=== PATIENT | female | born 1990 | race Caucasian/White ===

== ENCOUNTER 2016-04-17 12:31 | Inpatient (IN) | payer BC, MEDICARE ==
[~2016-04-17] VITALS: Ht 157.5 cm; Wt 43.1 kg
[~2016-04-17 12:31] MED LIST: ALPR0.25 PO; AMLO10TA2 PO; AMOX1TAB58 PO; CINA60TA PO; DOCU-27 PO; HYDR-2869 PO; LEVO500T38 PO; LISI2.5T PO; LOSA50TA6 PO; METO200T3 PO; ONDA4TAB10 SL; ONDA4TAB12 PO; OXYC-244 PO; OXYC-323 PO; OXYC5CAP3 PO; POLY17PO5 PO
[2016-04-17] MEDS ORDERED: FENTANYL PF 100 MCG/2 ML VIAL. IV ONE ×3 (13:00→20:45)
--- NOTE | 2016-04-17 13:01 | PHYS DOC ---
Past Medical History Past Medical History: Hypertension, Renal Failure, Seizure Additional Past Medical Histor: HEMODIAYLSIS,elevated phosporous Past Surgical History: , Other Additional Past Surgical Histo: AV shunt in left arm, dialysis cath placement and removal, L. WRIST Alcohol Use: None Drug Use: Marijuana Adult General Chief Complaint Chief Complaint: ABDOMINAL PAIN HPI HPI This is a 26-year-old female who's renal failure dependent on hemodialysis 3 times a week he was 45 minutes into her dialysis treatment today and developed exquisite epigastric and left upper quadrant pain with some nausea. Patient additionally states she's had some diarrhea earlier today. Currently she rates her pain an 8 out of 10 on the pain scale. Patient does have history of pancreatitis that she had 3 weeks ago. She states she's had only one episode of this. She states that this feels somewhat similar to that episode. She additionally rates her blood pressure is been very elevated today. At the hemodialysis center her blood pressure was 230/130 she was given a dose of clonidine but this did not affect the blood pressure to any significant degree and so she was sent here for further evaluation for these issues. Currently she denies any chest pain or shortness of breath. Patient states she was compliant with her blood pressure medication earlier today and takes amlodipine and hydralazine. Patient is history of renal failure secondary to us complication from a strep infection she had as a child. Also of recent note the patient had a right-sided hip fracture that subsequently became septic and required hardware removal and she has a PICC line in place now and is receiving vancomycin therapy for this. They removed all the hardware and placed cement in the joint in the last several weeks. She denies any new pain today in this area and has been receiving pain control adequately. She currently is fully alert and oriented and able to answer all my questions and follow my commands and does not appear to be in any acute distress. Review of Systems Review of Systems Constitutional: Denies fever or chills [] Eyes: Denies change in visual acuity, redness, or eye pain [] HENT: Denies nasal congestion or sore throat [] Respiratory: Denies cough or shortness of breath [] Cardiovascular: No additional information not addressed in HPI [] GI: Denies abdominal pain, nausea, vomiting, bloody stools or diarrhea [] : Denies dysuria or hematuria [] Musculoskeletal: Denies back pain or joint pain [] Integument: Denies rash or skin lesions [] Neurologic: Denies headache, focal weakness or sensory changes [] Endocrine: Denies polyuria or polydipsia [] Current Medications Current Medications Current Medications Medications (Trade) Dose Ordered Sig/Rolly Start Time Stop Time Status Last Admin Dose Admin Fentanyl Citrate (Fentanyl 2ml Vial) 50 mcg 1X ONCE 04/17/16 13:00 04/17/16 13:01 DC 04/17/16 13:36 50 MCG Hydralazine HCl (Apresoline) 10 mg 1X ONCE 04/17/16 13:15 04/17/16 13:16 DC 04/17/16 13:33 10 MG Lorazepam (Ativan) 0.5 mg 1X STAT 04/17/16 14:08 04/17/16 14:09 DC 04/17/16 14:12 0.5 MG Ondansetron HCl (Zofran) 4 mg 1X ONCE 04/17/16 13:15 04/17/16 13:16 DC 04/17/16 13:35 4 MG Allergies Allergies Allergies Coded Allergies Type Severity Reaction Last Updated Verified Sulfa (Sulfonamide Antibiotics) Allergy Intermediate 07/07/14 Yes haloperidol Allergy Intermediate Anxiety 10/01/14 No Physical Exam Physical Exam Constitutional: Well developed, well nourished, no acute distress, non-toxic appearance. [] HENT: Normocephalic, atraumatic, bilateral external ears normal, oropharynx moist, no oral exudates, nose normal. [] Eyes: PERRLA, EOMI, conjunctiva normal, no discharge. [] Neck: Normal range of motion, no tenderness, supple, no stridor. [] Cardiovascular:Heart rate regular rhythm, no murmur [] Lungs & Thorax: Bilateral breath sounds clear to auscultation [] Abdomen: Bowel sounds normal, soft, moderate epigastric and LUQ tenderness, no masses, no pulsatile masses. [] Skin: Warm, dry, no erythema, no rash. [] Back: No tenderness, no CVA tenderness. [] Extremities: No tenderness, no cyanosis, no clubbing, ROM intact, no edema. [] Neurologic: Alert and oriented X 3, normal motor function, normal sensory function, no focal deficits noted. [] Psychologic: Affect normal, judgement normal, mood normal. [] Current Patient Data Vital Signs Vital Signs Date Time Temp Pulse Resp B/P Pulse Ox O2 Delivery O2 Flow Rate FiO2 04/17/16 14:06 104 20 180/113 97 04/17/16 13:46 Room Air 04/17/16 12:40 98.5 98.5 Lab Values Laboratory Tests Test 04/17/16 13:20 White Blood Count 6.5x10^3/uL (4.0-11.0) Red Blood Count 2.74x10^6/uL (3.50-5.40) L Hemoglobin 8.5g/dL (12.0-15.5) L Hematocrit 26.6% (36.0-47.0) L Mean Corpuscular Volume 97fL (79-100) Mean Corpuscular Hemoglobin 31pg (25-35) Mean Corpuscular Hemoglobin Concent 32g/dL (31-37) Red Cell Distribution Width 20.5% (11.5-14.5) H Platelet Count 182x10^3/uL (140-400) Neutrophils (%) (Auto) 82% (31-73) H Lymphocytes (%) (Auto) 10% (24-48) L Monocytes (%) (Auto) 4% (0-9) Eosinophils (%) (Auto) 3% (0-3) Basophils (%) (Auto) 1% (0-3) Neutrophils # (Auto) 5.3x10^3uL (1.8-7.7) Lymphocytes # (Auto) 0.6x10^3/uL (1.0-4.8) L Monocytes # (Auto) 0.3x10^3/uL (0.0-1.1) Eosinophils # (Auto) 0.2x10^3/uL (0.0-0.7) Basophils # (Auto) 0.1x10^3/uL (0.0-0.2) Platelet Estimate Adequate (ADEQUATE) Polychromasia Slight Poikilocytosis Mod Anisocytosis Mod Spherocytes Occ Ovalocytes Few [place] Cells Occ Acanthocytes (Spur Cells) Few Schistocytes Few Sodium Level 142mmol/L (136-145) Potassium Level 4.8mmol/L (3.5-5.1) Chloride Level 102mmol/L (98-107) Carbon Dioxide Level 23mmol/L (21-32) Anion Gap 17 (6-14) H Blood Urea Nitrogen 56mg/dL (7-20) H Creatinine 5.6mg/dL (0.6-1.0) H Estimated GFR (Cockcroft-Gault) 9.2 BUN/Creatinine Ratio 10 (6-20) Glucose Level 82mg/dL (70-99) Calcium Level 9.2mg/dL (8.5-10.1) Total Bilirubin 0.6mg/dL (0.2-1.0) Aspartate Amino Transferase (AST) 14U/L (15-37) L Alanine Aminotransferase (ALT) 13U/L (14-59) L Alkaline Phosphatase 765U/L (46-116) H Total Protein 6.6g/dL (6.4-8.2) Albumin 3.3g/dL (3.4-5.0) L Albumin/Globulin Ratio 1.0 (1.0-1.7) Lipase 141U/L (73-393) Laboratory Tests 04/17/16 13:20 Laboratory Tests 04/17/16 13:20 EKG EKG EKG as interpreted by me shows a sinus rhythm with rate of 91 bpm. There are no acute ST findings on this EKG. Radiology/Procedures Radiology/Procedures CT of the abdomen and pelvis without IV contrast: 1. Small amount of abdominal ascites with extensive mesenteric stranding and body wall edema, new compared to the prior study. 2. Stable hepatosplenomegaly. 3. Small right pleural effusion, new compared to the prior study. 4. Bilateral renal atrophy. 5. Large amount of colonic stool. Correlate for constipation. 6. Fracture dislocation of the right hip and deformity of the right femoral head, new compared to the prior study. There is no associated moderate right hip hemarthrosis. 7. Mild L2 compression fracture, new compared to the prior study. This may be subacute. 8. Chronic appearing sacral insufficiency fractures and pubic rami fractures superimposed on osseous changes due to renal osteodystrophy, similar compared to the prior study. 9. Grade 1 anterolisthesis of L5 on S1 with pars defects. Portable AP view of the pelvis and the right hip demonstrates cement artifact in the right hip. There is some absent bone in the femoral neck which is likely secondary to her previous surgery. There does not appear to be an acute dislocation but more likely related to her previous surgery. Course & Med Decision Making Course & Med Decision Making Pertinent Labs and Imaging studies reviewed. (See chart for details) This 26 her old female with ongoing epigastric and left upper quadrant pain receive a dose of IV pain control and IV hydralazine for her blood pressure issues. Also obtain laboratory workup and a noncontrasted CT to rule out any other acute cause of her symptoms. Ultimately if her laboratory workup and imaging is negative and her pain is controlled she will be safe to be discharged home to obtain dialysis as scheduled. If her laboratory workup reveals any acute abnormalities I will be admitting her to the hospital. Patient does not appear to be in any acute distress at this time. It certainly is possible her symptoms are related to her known history of pancreatitis although with the acute onset of the pain, it is possible there are other acute causes that need to be ruled out. I discussed the hip findings with the orthopedic surgeon, Dr. Castro, who agreed to order AP view of the hip and pelvis as well. I believe her findings are more consistent with her previous surgery and no acute findings today however orthopedic surgery will follow her closely for this. I will be admitting her for her ongoing abdominal pain and inability to complete her dialysis in addition to her musculoskeletal injuries. Laboratory workup is significant for renal failure but this is a known issue. There were no other acute findings on laboratory workup. Her CT of her abdomen/pelvis did note a L1 compression fracture as well as some mild ascites. For additional findings, please see the CT report. Dragon Disclaimer Dragon Disclaimer This electronic medical record was generated, in whole or in part, using a voice recognition dictation system. Departure Departure Impression: Primary Impression: Abdominal pain Additional Impressions: Hip fracture, right Lumbar compression fracture Disposition: ADMITTED INPATIENT Admitting Physician: Rodger Apple Condition: STABLE Referrals: NO PCP (PCP) Problem Qualifiers RYAN VELASQUEZ DO Apr 17, 2016 13:01
[2016-04-17] MEDS ORDERED: hydrALAZINE 20 MG/ML VIAL. IVP ONE (13:15)
[2016-04-17] MEDS ORDERED: ONDANSETRON PF 4 MG/2 ML VIAL. IV ONE (13:15)
--- NOTE | 2016-04-17 13:49 | EKG ---
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
[2016-04-17 13:54] LABS: BASO # 0.1 x10^3/uL (0.0-0.2); BASO % 1 % (0-3); EOS % 3 % (0-3); HEMATOCRIT 26.6 % (36.0-47.0); HEMOGLOBIN 8.5 g/dL (12.0-15.5); LYMPH # 0.6 x10^3/uL (1.0-4.8); LYMPH % 10 % (24-48); MEAN CORPUSCULAR HEMOGLOBIN 31 pg (25-35); MEAN CORPUSCULAR HGB CONC 32 g/dL (31-37); MEAN CORPUSCULAR VOLUME 97 fL (79-100); MONO % 4 % (0-9); NEUT % 82 % (31-73); PLATELET COUNT 182 x10^3/uL (140-400); RED BLOOD COUNT 2.74 x10^6/uL (3.50-5.40); RED CELL DISTRIBUTION WIDTH 20.5 % (11.5-14.5); WHITE BLOOD COUNT 6.5 x10^3/uL (4.0-11.0)
[2016-04-17] MEDS ORDERED: LORAZEPAM 2 MG/ML VIAL IV STA (14:08)
--- NOTE | 2016-04-17 14:21 | RAD ---
EXAM: Abdomen and pelvis CT without intravenous contrast. HISTORY: Pain. TECHNIQUE: Computed tomographic images of the abdomen and pelvis were obtained without contrast. Multiplanar reformatting was performed. COMPARISON: 10/28/2015. FINDINGS: Evaluation of the lower thorax demonstrates scattered groundglass and linear opacity likely due to atelectasis. There is 5 mm pleural-based nodular opacity within the right lower lobe likely due to atelectasis. There is a small right pleural effusion. There is cardiomegaly. There is a small pericardial effusion. There is hepatomegaly. No focal hepatic lesion is seen. The gallbladder is surgically absent. The pancreas is unremarkable. The spleen is mildly enlarged. There is adrenal gland thickening without a discrete nodule. There are atrophic kidneys with parenchymal and vascular calcification. There is no evidence of appendicitis. There is a large amount of colonic stool. There is a small amount of abdominal ascites and diffuse mesenteric stranding. There are uterine calcifications. The adnexal regions are unremarkable. There is a bladder mucosal thickening likely due to underdistention. There is a central venous catheter within the right inferior vena cava at the confluence of the hepatic veins. There is diffuse body wall edema. There is a comminuted proximal right femoral fracture with associated hip dislocation. There are bilateral pubic rami fractures. There are sacral insufficiency fractures. There chronic deformity and postoperative changes involving the right femoral head. There is a mild wedge compression fracture of L2. There is lumbar hyperlordosis and grade 1 anterolisthesis with pars defects at L5-S1. There is sclerosis within the vertebral bodies and bony pelvis consistent with renal osteodystrophy. There are several endplate Schmorl's nodes. IMPRESSION: 1. Small amount of abdominal ascites with extensive mesenteric stranding and body wall edema, new compared to the prior study. 2. Stable hepatosplenomegaly. 3. Small right pleural effusion, new compared to the prior study. 4. Bilateral renal atrophy. 5. Large amount of colonic stool. Correlate for constipation. 6. Fracture dislocation of the right hip and deformity of the right femoral head, new compared to the prior study. There is no associated moderate right hip hemarthrosis. 7. Mild L2 compression fracture, new compared to the prior study. This may be subacute. 8. Chronic appearing sacral insufficiency fractures and pubic rami fractures superimposed on osseous changes due to renal osteodystrophy, similar compared to the prior study. 9. Grade 1 anterolisthesis of L5 on S1 with pars defects. PQRS Compliance Statement: One or more of the following individualized dose reduction techniques were utilized for this examination: 1. Automated exposure control 2. Adjustment of the mA and/or kV according to patient size 3. Use of iterative reconstruction technique
[2016-04-17 14:39] LABS: CALCIUM 9.2 mg/dL (8.5-10.1); CREATININE 5.6 mg/dL (0.6-1.0); GFR 9.2; POTASSIUM 4.8 mmol/L (3.5-5.1)
[2016-04-17] MEDS ORDERED: ACETAMINOPHEN 325 MG TABLET. PO PRN ×2 (14:45→19:00)
[2016-04-17 14:53] LABS: ALBUMIN 3.3 g/dL (3.4-5.0); TOTAL BILIRUBIN 0.6 mg/dL (0.2-1.0); TOTAL PROTEIN 6.6 g/dL (6.4-8.2)
[2016-04-17] MEDS: IV NORMAL SALINE 1000ML BAG 1,000 ML IV SCH ×2 (15:12→23:00)
[2016-04-17] MEDS: ONDANSETRON PF 4 MG/2 ML VIAL. IV PRN ×2 (15:14→23:11)
[2016-04-17] MEDS ORDERED: DIPHENHYDRAMINE 50 MG/ML VIAL IVP ONE (15:15)
[2016-04-17] MEDS: FENTANYL PF 100 MCG/2 ML VIAL. IV PRN ×4 (15:16→23:12)
[2016-04-17 15:24] LABS: PLT ESTIMATE ADEQUATE (ADEQUATE)
[2016-04-17 15:25] LABS: ANISOCYTOSIS MOD; OVALOCYTES FEW; POIKILOCYTOSIS MOD; POLYCHROMASIA SLIGHT; SPHEROCYTES OCC
[2016-04-17 15:26] LABS: ACANTHOCYTES FEW; BURR CELLS OCC; SCHISTOCYTES FEW
[2016-04-17 15:30] VITALS: BP 183/118
[2016-04-17 16:30] VITALS: BP 183/118
[2016-04-17] MEDS ORDERED: hydrALAZINE 20 MG/ML VIAL. IVP PRN ×2 (18:15→19:00)
--- NOTE | 2016-04-17 18:45 | PDOC1 ---
History and Physical Past Medical History Cardiovascular: HTN Heme/Onc: Anemia NOS Psych: Anxiety Renal/: Chronic renal failure, UTI, Other Endocrine: Hyperparathyroidism Family History Family History: Hypertension Social History ALCOHOL: none Drugs: None Current Problem List Problem List Problems Medical Problems: (1) Abdominal pain Status: Acute (2) Hip fracture, right Status: Acute (3) Lumbar compression fracture Status: Acute Current Medications Current Medications Current Medications Medications (Trade) Dose Ordered Sig/Rolly Start Time Stop Time Status Last Admin Dose Admin Acetaminophen (Tylenol) 650 mg PRN Q4HRS PRN 04/17/16 14:45 04/18/16 14:44 Diphenhydramine HCl (Benadryl) 25 mg 1X ONCE 04/17/16 15:15 04/17/16 15:16 DC 04/17/16 15:15 25 MG Fentanyl Citrate (Fentanyl 2ml Vial) 50 mcg 1X ONCE 04/17/16 14:45 04/17/16 14:46 DC 04/17/16 14:32 50 MCG Fentanyl Citrate 50 mcg 50 mcg PRN Q2HR PRN 04/17/16 14:45 04/18/16 14:44 04/17/16 17:34 50 MCG Hydralazine HCl (Apresoline) 10 mg PRN Q4HRS PRN 04/17/16 18:15 04/17/16 18:19 10 MG Lorazepam (Ativan) 0.5 mg 1X STAT 04/17/16 14:08 04/17/16 14:09 DC 04/17/16 14:12 0.5 MG Ondansetron HCl (Zofran) 4 mg PRN Q8HRS PRN 04/17/16 14:45 04/18/16 14:44 04/17/16 15:14 4 MG Sodium Chloride (Iv Sodium Chloride 0.9% 1000ml Bag) 1,000 ml @ 125 mls/hr Q8H 04/17/16 15:00 04/18/16 14:59 04/17/16 15:12 125 MLS/HR Allergies Allergies Allergies Coded Allergies Type Severity Reaction Last Updated Verified Sulfa (Sulfonamide Antibiotics) Allergy Intermediate 07/07/14 Yes haloperidol Allergy Intermediate Anxiety 10/01/14 No ROS Review of System CONSTITUTIONAL: No fever or chills EYES: No recent changes SKIN: No rash or itching CARDIOVASCULAR: No chest pain, syncope, palpitations, or edema RESPIRATORY: No SOB or cough GASTROINTESTINAL: abdominal pain NEUROLOGICAL: No headaches or weakness ENDOCRINE: No cold or heat intolerance GENITOURINARY: No urgency or frequency of urination MUSCULOSKELETAL: hip pain right LYMPHATICS: No enlarged lymph nodes PSYCHIATRIC: No anxiety or depression Physical Exam Physical Exam GEN.: apparent distress pain. Alert and oriented. HEENT: Head is normocephalic, atraumatic NECK: Supple. no jvd LUNGS: Clear to auscultation. normal airflow HEART: RRR, S1, S2 present. Peripheral pulses intact ABDOMEN: Soft, nontender. Positive bowel sounds. EXTREMITIES: Without any cyanosis. NEUROLOGIC: Normal speech, normal tone PSYCHIATRIC: Normal affect, normal mood. SKIN: No ulcerations Vitals Vitals Vital Signs Date Time Temp Pulse Resp B/P Pulse Ox O2 Delivery O2 Flow Rate FiO2 04/17/16 18:19 90 183/118 04/17/16 18:13 18 96 Room Air 04/17/16 15:30 97.9 97.9 Labs Labs Laboratory Tests Test 04/17/16 13:20 White Blood Count 6.5x10^3/uL (4.0-11.0) Red Blood Count 2.74x10^6/uL (3.50-5.40) Hemoglobin 8.5g/dL (12.0-15.5) Hematocrit 26.6% (36.0-47.0) Mean Corpuscular Volume 97fL (79-100) Mean Corpuscular Hemoglobin 31pg (25-35) Mean Corpuscular Hemoglobin Concent 32g/dL (31-37) Red Cell Distribution Width 20.5% (11.5-14.5) Platelet Count 182x10^3/uL (140-400) Neutrophils (%) (Auto) 82% (31-73) Lymphocytes (%) (Auto) 10% (24-48) Monocytes (%) (Auto) 4% (0-9) Eosinophils (%) (Auto) 3% (0-3) Basophils (%) (Auto) 1% (0-3) Neutrophils # (Auto) 5.3x10^3uL (1.8-7.7) Lymphocytes # (Auto) 0.6x10^3/uL (1.0-4.8) Monocytes # (Auto) 0.3x10^3/uL (0.0-1.1) Eosinophils # (Auto) 0.2x10^3/uL (0.0-0.7) Basophils # (Auto) 0.1x10^3/uL (0.0-0.2) Platelet Estimate Adequate (ADEQUATE) Polychromasia Slight Poikilocytosis Mod Anisocytosis Mod Spherocytes Occ Ovalocytes Few [place] Cells Occ Acanthocytes Few Schistocytes Few Sodium Level 142mmol/L (136-145) Potassium Level 4.8mmol/L (3.5-5.1) Chloride Level 102mmol/L (98-107) Carbon Dioxide Level 23mmol/L (21-32) Anion Gap 17 (6-14) Blood Urea Nitrogen 56mg/dL (7-20) Creatinine 5.6mg/dL (0.6-1.0) Estimated GFR (Cockcroft-Gault) 9.2 BUN/Creatinine Ratio 10 (6-20) Glucose Level 82mg/dL (70-99) Calcium Level 9.2mg/dL (8.5-10.1) Total Bilirubin 0.6mg/dL (0.2-1.0) Aspartate Amino Transf (AST/SGOT) 14U/L (15-37) Alanine Aminotransferase (ALT/SGPT) 13U/L (14-59) Alkaline Phosphatase 765U/L (46-116) Total Protein 6.6g/dL (6.4-8.2) Albumin 3.3g/dL (3.4-5.0) Albumin/Globulin Ratio 1.0 (1.0-1.7) Lipase 141U/L (73-393) Laboratory Tests Test 04/17/16 13:20 White Blood Count 6.5x10^3/uL (4.0-11.0) Red Blood Count 2.74x10^6/uL (3.50-5.40) Hemoglobin 8.5g/dL (12.0-15.5) Hematocrit 26.6% (36.0-47.0) Mean Corpuscular Volume 97fL (79-100) Mean Corpuscular Hemoglobin 31pg (25-35) Mean Corpuscular Hemoglobin Concent 32g/dL (31-37) Red Cell Distribution Width 20.5% (11.5-14.5) Platelet Count 182x10^3/uL (140-400) Neutrophils (%) (Auto) 82% (31-73) Lymphocytes (%) (Auto) 10% (24-48) Monocytes (%) (Auto) 4% (0-9) Eosinophils (%) (Auto) 3% (0-3) Basophils (%) (Auto) 1% (0-3) Neutrophils # (Auto) 5.3x10^3uL (1.8-7.7) Lymphocytes # (Auto) 0.6x10^3/uL (1.0-4.8) Monocytes # (Auto) 0.3x10^3/uL (0.0-1.1) Eosinophils # (Auto) 0.2x10^3/uL (0.0-0.7) Basophils # (Auto) 0.1x10^3/uL (0.0-0.2) Platelet Estimate Adequate (ADEQUATE) Polychromasia Slight Poikilocytosis Mod Anisocytosis Mod Spherocytes Occ Ovalocytes Few [place] Cells Occ Acanthocytes Few Schistocytes Few Sodium Level 142mmol/L (136-145) Potassium Level 4.8mmol/L (3.5-5.1) Chloride Level 102mmol/L (98-107) Carbon Dioxide Level 23mmol/L (21-32) Anion Gap 17 (6-14) Blood Urea Nitrogen 56mg/dL (7-20) Creatinine 5.6mg/dL (0.6-1.0) Estimated GFR (Cockcroft-Gault) 9.2 BUN/Creatinine Ratio 10 (6-20) Glucose Level 82mg/dL (70-99) Calcium Level 9.2mg/dL (8.5-10.1) Total Bilirubin 0.6mg/dL (0.2-1.0) Aspartate Amino Transf (AST/SGOT) 14U/L (15-37) Alanine Aminotransferase (ALT/SGPT) 13U/L (14-59) Alkaline Phosphatase 765U/L (46-116) Total Protein 6.6g/dL (6.4-8.2) Albumin 3.3g/dL (3.4-5.0) Albumin/Globulin Ratio 1.0 (1.0-1.7) Lipase 141U/L (73-393) VTE Prophylaxis Ordered VTE Prophylaxis Devices: Yes VTE Pharmacological Prophylaxi: Yes VASIREDDI,GAYATRI R MD Apr 17, 2016 18:45
[2016-04-17] MEDS ORDERED: VANCOMYCIN 1.25 GM in IV NORMAL SALINE 250ML 250 ML IV ONE (19:00)
[2016-04-17] MEDS ORDERED: HYDROCODONE/APAP 5/325MG TABLET. PO PRN (19:00)
[2016-04-17] MEDS ORDERED: ONDANSETRON PF 4 MG/2 ML VIAL. IV PRN (19:00)
[2016-04-17] MEDS ORDERED: ALBUTEROL SULFATE 2.5 MG/3 ML NEBU. NEB PRN (19:00)
[2016-04-17 19:10] VITALS: BP 176/114
[2016-04-17] MEDS ORDERED: OXYCODONE/APAP 7.5/325 TABLET. PO PRN (19:15)
[2016-04-17] MEDS ORDERED: VANCOMYCIN RANDOM LEVEL. MC ONE (19:30)
[2016-04-17] MEDS: VANCOMYCIN PER PHARMACY MC PRN ×2 (19:30→20:49)
[2016-04-17] MEDS: AMLODIPINE BESYLATE 10 MG TABLET PO SCH (19:49)
[2016-04-17] MEDS: ALPRAZOLAM 1 MG TABLET PO PRN (19:50)
[2016-04-17] MEDS: METOPROLOL SUCC 24HR ER 100 MG TAB.ER.24H. PO SCH (19:50)
[2016-04-17] MEDS: VANCOMYCIN 750 MG in IV NORMAL SALINE 250ML 250 ML IV ONE ×2 (20:57→21:30)
[2016-04-17] MEDS: HYDRALAZINE 50 MG TABLET PO SCH (21:10)
[2016-04-17 23:10] VITALS: BP 171/126
[2016-04-18] MEDS: FENTANYL PF 100 MCG/2 ML VIAL. IV PRN ×8 (02:33→21:51)
[2016-04-18 02:40] VITALS: BP 145/116
--- NOTE | 2016-04-18 03:36 | HP ---
ADMIT DATE: 04/17/2016 CHIEF COMPLAINT: Abdominal pain. HISTORY OF PRESENT ILLNESS: A 26-year-old female patient with prior history of several comorbid conditions such as end-stage renal disease, on hemodialysis, who developed sudden onset of left upper quadrant mid epigastric abdominal pain after 45 minutes into her hemodialysis today. The patient states abdominal pain is intractable in nature, denies any fever, chills. At the time of my examination, she is complaining of pain 10/10. As per ER report, she was diagnosed with pancreatitis in the past. Also, she was admitted to [facility] and her right hip has been repaired and currently she is on IV vancomycin with dialysis; however, she could not able to provide me full details. She recently has right hip fracture and subsequently got septic and currently she is on vancomycin therapy. Also, her mobility of the right hip has been restricted. PAST MEDICAL HISTORY: Hypertension, end-stage renal disease, hemodialysis. CHIEF PAST SURGICAL HISTORY: , AV shunt left arm, dialysis catheter placement. SOCIAL HISTORY: No smoking, no alcohol, no drug abuse. FAMILY HISTORY: No hypertension. REVIEW OF SYSTEMS AND PHYSICAL EXAMINATION: Please see my electronic H and P. LABORATORY FINDINGS: 1. Hemoglobin is 8.5, hematocrit is 26.6, MCV is 97, platelets 182. 2. Chemistry: Sodium is 142, potassium is 4.8, chloride is 102, carbon dioxide 23, anion gap is 17, BUN is 56, creatinine 5.6, AST is 14, ALT is 13, alkaline phosphatase 765. 3. Toxicology: Vancomycin level 7. IMAGING STUDY: Abdomen and pelvis CT showed; 1. Small amount of abdominal ascites with extensive mesenteric stranding and body wall edema, new compared to the prior study, stable hepatosplenomegaly, small right pleural effusion, bilateral renal atrophy, large amount of colonic stool. 2. Fracture, dislocation of right hip and deformity of right femoral head, new compared to prior study. 3. Mild L2 compression fracture. 4. Chronic appearing sacral insufficiency fracture and pubic rami fracture. ASSESSMENT AND PLAN: 1. Intractable abdominal pain, unclear but multiple possible differentials, ascites and L2 compression fracture and possible peritonitis. 2. Gastritis. 4. Uncontrolled hypertension. 5. End-stage renal disease, on hemodialysis. PLAN: 1. Pain control with IV fentanyl 25 mcg every 2 hours. 2. General surgery and GI has been consulted. 3. Orthopedics has been consulted. 4. Blood pressure control with home medications, metoprolol 200 mg daily with p.r.n. hydralazine. 5. Nephrology consultation for dialysis. 6. Monitor electrolytes. 7. IV vancomycin has been resumed. Did discuss with RN to obtain records from [facility]. 8. Pharmacy to dose vancomycin. 9. The patient's mother is not available immediately at the time of my examination. 10. Monitor CBC and BMP. Telemetry. 11. Overall prognosis is guarded. GAYATRI DOLAN MD DR: TONO/phuc JOB#: [id number] / [id number]
[2016-04-18 06:31] LABS: BASO # 0.1 x10^3/uL (0.0-0.2); BASO % 1 % (0-3); EOS % 3 % (0-3); HEMATOCRIT 29.9 % (36.0-47.0); HEMOGLOBIN 9.6 g/dL (12.0-15.5); LYMPH # 0.8 x10^3/uL (1.0-4.8); LYMPH % 7 % (24-48); MEAN CORPUSCULAR HEMOGLOBIN 31 pg (25-35); MEAN CORPUSCULAR HGB CONC 32 g/dL (31-37); MEAN CORPUSCULAR VOLUME 96 fL (79-100); MONO % 5 % (0-9); NEUT % 84 % (31-73); PLATELET COUNT 268 x10^3/uL (140-400); RED CELL DISTRIBUTION WIDTH 20.9 % (11.5-14.5); WHITE BLOOD COUNT 11.1 x10^3/uL (4.0-11.0)
[2016-04-18 06:36] LABS: CALCIUM 9.5 mg/dL (8.5-10.1); CREATININE 6.8 mg/dL (0.6-1.0); GFR 7.3; POTASSIUM 5.7 mmol/L (3.5-5.1)
[2016-04-18] MEDS: ONDANSETRON PF 4 MG/2 ML VIAL. IV PRN (07:21)
[2016-04-18] MEDS: HYDRALAZINE 50 MG TABLET PO SCH ×3 (07:22→20:50)
[2016-04-18] MEDS: AMLODIPINE BESYLATE 10 MG TABLET PO SCH (07:22)
[2016-04-18] MEDS: METOPROLOL SUCC 24HR ER 100 MG TAB.ER.24H. PO SCH (07:23)
[2016-04-18 07:30] VITALS: BP 143/101
--- NOTE | 2016-04-18 08:23 | RAD ---
EXAM: Right hip, 2 views. HISTORY: Pain. COMPARISON: 02/20/2016. FINDINGS: A frontal view of the pelvis and frog-leg view of the right hip are obtained. There is chronic fracture dislocation of the proximal right femur and deformity of the femoral head with suspected [place] postoperative material within the acetabulum. There are chronic appearing fracture deformities of the superior and inferior pubic rami. There are suspected chronic insufficiency fractures involving the iliac bones. There is a left femoral catheter extending cephalad from the [id number]. IMPRESSION: 1. Chronic fracture dislocation of the right proximal femur and suspected postoperative radius material within a residual femoral head and overlying soft tissues. There is a moderate joint effusion on a CT obtained on the same date. The possibility of a hemarthrosis or septic hip is not excluded. 2. Chronic appearing pubic rami and iliac bone fractures. 3. Note is made of bony changes consistent with renal osteodystrophy demonstrated on a CT obtained on the same date.
[2016-04-18 10:37] VITALS: BP 122/84
--- NOTE | 2016-04-18 10:53 | PDOC2 ---
CONSULT Date of Consult Date of Consult DATE: 04/18/16 TIME: 10:48 Reason for Consult Reason for Consult: HIGH K AND ESRD Referring Physician Referring Physician: KELSI Identification/Chief Complaint Chief Complaint ABD PAIN Source Source: Chart review, Patient History of Present Illness Reason for Visit: THIS IS A 26 YR OLD ADMITTED WITH ABD PAIN, SUDDEN ONSET IN NATURE AND IN THE EPIGASTRIC AND LUQ AREA. SHE HAS ESRD AND IS ON HD ON TTS. SHE DEVELOPED THIS PAIN ABOUT 30 MINUTES INTO HER HD YESTERDAY. SHE WAS UNABLE TO FINISH HER HD. STATES THAT SHE FEELS FULL AND HER K IS NOW 5.7. OTHERWISE LABS ARE C/W ESRD Past Medical History Cardiovascular: HTN Heme/Onc: Anemia NOS Psych: Anxiety Musculoskeletal: Weakness Renal/: Chronic renal failure, UTI, Other Endocrine: Hyperparathyroidism Past Surgical History Past Surgical History LEFT ARM BB FISTULA Family History Family History: Hypertension Social History ALCOHOL: none Drugs: None Lives: with Family Current Problem List Problem List Problems Medical Problems: (1) Abdominal pain Status: Acute (2) Hip fracture, right Status: Acute (3) Lumbar compression fracture Status: Acute Current Medications Current Medications Current Medications Fentanyl Citrate (Fentanyl 2ml Vial) 50 mcg 1X ONCE IV Last administered on 13:36; Start 04/17/16 at 13:00; Stop 04/17/16 at 13:01; Status DC Hydralazine HCl (Apresoline) 10 mg 1X ONCE IVP Last administered on 04/17/16 13:33; Start 04/17/16 at 13:15; Stop 04/17/16 at 13:16; Status DC Ondansetron HCl (Zofran) 4 mg 1X ONCE IV Last administered on 04/17/16 13:35 ; Start 04/17/16 at 13:15; Stop 04/17/16 at 13:16; Status DC Lorazepam (Ativan) 0.5 mg 1X STAT IV Last administered on 04/17/16 14:12; Start 04/17/16 at 14:08; Stop 04/17/16 at 14:09; Status DC Fentanyl Citrate (Fentanyl 2ml Vial) 50 mcg 1X ONCE IV Last administered on 14:32; Start 04/17/16 at 14:45; Stop 04/17/16 at 14:46; Status DC Ondansetron HCl (Zofran) 4 mg PRN Q8HRS PRN IV NAUSEA/VOMITING Last administered on 04/18/16 07:21; Start 04/17/16 at 14:45; Stop 04/18/16 at 08:48 ; Status DC Fentanyl Citrate 50 mcg 50 mcg PRN Q2HR PRN IV PAIN Last administered on 17:34; Start 04/17/16 at 14:45; Stop 04/17/16 at 18:47; Status DC Sodium Chloride (Iv Sodium Chloride 0.9% 1000ml Bag) 1,000 ml @ 125 mls/hr Q8H IV Last administered on 04/17/16 15:12; Start 04/17/16 at 15:00; Stop at 02:19; Status DC Acetaminophen (Tylenol) 650 mg PRN Q4HRS PRN PO FEVER; Start 04/17/16 at 14:45 ; Stop 04/18/16 at 08:48; Status DC Diphenhydramine HCl (Benadryl) 25 mg 1X ONCE IVP Last administered on 15:15; Start 04/17/16 at 15:15; Stop 04/17/16 at 15:16; Status DC Hydralazine HCl (Apresoline) 10 mg PRN Q4HRS PRN IVP for SBP > 170 Last administered on 04/17/16 18:19; Start 04/17/16 at 18:15 Fentanyl Citrate (Fentanyl 2ml Vial) 25 mcg PRN Q2HR PRN IV PAIN Last administered on 04/18/16 07:23; Start 04/17/16 at 19:00 Vancomycin HCl (Vanco Per Pharmacy) 1 each PRN DAILY PRN MC SEE COMMENTS Last administered on 04/17/16 20:49; Start 04/17/16 at 19:00 Acetaminophen (Tylenol) 325 mg PRN Q6HRS PRN PO MILD PAIN / TEMP; Start at 19:00 Acetaminophen/ Hydrocodone Bitart (Lortab 5/325) 1 tab PRN Q6HRS PRN PO MODERATE TO SEVERE PAIN; Start 04/17/16 at 19:00 Hydralazine HCl (Apresoline) 10 mg PRN Q4HRS PRN IVP ELEVATED BP, SEE COMMENTS ; Start 04/17/16 at 19:00; Stop 04/18/16 at 08:49; Status DC Ondansetron HCl (Zofran) 4 mg PRN Q8HRS PRN IV NAUSEA/VOMITING; Start 04/17/16 at 19:00 Albuterol Sulfate 2.5 mg 2.5 mg PRN Q4HRS PRN NEB SHORTNESS OF BREATH; Start at 19:00 Vancomycin HCl/ Sodium Chloride (Iv Sodium Chloride 0.9% 250ml) 250 ml @ 166.667 mls/hr 1X ONCE IV ; Start 04/17/16 at 19:00; Stop 04/17/16 at 20:29; Status Cancel Alprazolam (Xanax) 2 mg PRN TID PRN PO ANXIETY / AGITATION Last administered on 04/17/16 19:50; Start 04/17/16 at 19:15 Amlodipine Besylate (Norvasc) 10 mg DAILY PO Last administered on 04/18/16 07: 22; Start 04/17/16 at 20:00 Hydralazine HCl (Apresoline) 50 mg TID PO Last administered on 04/18/16 07:22 ; Start 04/17/16 at 21:00 Oxycodone/ Acetaminophen (Percocet 7.5/ 325) 1 tab PRN Q8HRS PRN PO PAIN Last administered on 04/18/16 07:20; Start 04/17/16 at 19:15 Metoprolol Succinate (Toprol Xl) 200 mg DAILY PO Last administered on 07:23; Start 04/17/16 at 20:00 Vancomycin HCl 1 each 1X ONCE MC Last administered on 04/17/16 20:15; Start 04/17/16 at 19:30; Stop 04/17/16 at 19:31; Status DC Fentanyl Citrate 25 mcg 25 mcg 1X ONCE IV Last administered on 04/17/16 20:43 ; Start 04/17/16 at 20:45; Stop 04/17/16 at 20:46; Status DC Vancomycin HCl/ Sodium Chloride (Iv Sodium Chloride 0.9% 250ml) 250 ml @ 250 mls/hr 1X ONCE IV Last administered on 04/17/16 21:30; Start 04/17/16 at 21: 00; Stop 04/17/16 at 21:59; Status DC Active Scripts Active Zofran Odt (Ondansetron) 4 Mg Tab.rapdis 1 Tab SL Q8HRS PRN Reported Percocet 7.5-325 Mg Tablet (Oxycodone/Acetaminophen) 1 Each Tablet 1 Tab PO PRN Q8HRS PRN Xanax (Alprazolam) 0.25 Mg Tablet 2 Mg PO TID PRN Metoprolol Succinate ( Xl ) (Metoprolol Succinate) 200 Mg Tab.er.24h 1 Tab PO DAILY Hydralazine Hcl 50 Mg Tablet 1 Tab PO TID Amlodipine Besylate 10 Mg Tablet 1 Tab PO DAILY Allergies Allergies: Coded Allergies: Sulfa (Sulfonamide Antibiotics) (Verified Allergy, Intermediate, 07/07/14) haloperidol (Verified Allergy, Intermediate, Anxiety, 04/18/16) ROS General: YES: Appetite, Fatigue, Malaise PSYCHOLOGICAL ROS: YES: Anxiety, Depression Eyes: Yes Decreased vision HEENT: YES: Heacaches Respiratory: YES: Cough Gastrointestinal: Yes Abdominal Pain, Yes Constipation Genitourinary: YES Other (OLIGURIA) Musculoskeletal: Yes Muscular Weakness Neurological: Yes Weakness Skin: Yes Dry Skin Physical Exam General: Alert, Oriented X3, Cooperative, No acute distress HEENT: Atraumatic, PERRLA, EOMI, Mucous membr. moist/pink Lungs: Clear to auscultation Heart: Regular rate, Normal S1, Normal S2 Abdomen: Normal bowel sounds, Soft, No tenderness Extremities: No clubbing, Other (LEFT ARM AVF HAS A GOOD THRILL AND BRUIT) Skin: No rashes Neuro: Normal speech, Cranial nerves 3-12 NL Psych/Mental Status: Mental status NL, Mood NL MUSCULOSKELETAL: No deformity, No swelling Vitals VITALS Vital Signs Date Time Temp Pulse Resp B/P Pulse Ox O2 Delivery O2 Flow Rate FiO2 04/18/16 10:37 98.7 83 16 122/84 95 Room Air 98.7 04/18/16 07:23 2.0 Labs Labs Laboratory Tests Test 04/17/16 13:20 04/17/16 20:15 04/18/16 06:00 White Blood Count 6.5x10^3/uL (4.0-11.0) 11.1x10^3/uL (4.0-11.0) Red Blood Count 2.74x10^6/uL (3.50-5.40) 3.10x10^6/uL (3.50-5.40) Hemoglobin 8.5g/dL (12.0-15.5) 9.6g/dL (12.0-15.5) Hematocrit 26.6% (36.0-47.0) 29.9% (36.0-47.0) Mean Corpuscular Volume 97fL (79-100) 96fL (79-100) Mean Corpuscular Hemoglobin 31pg (25-35) 31pg (25-35) Mean Corpuscular Hemoglobin Concent 32g/dL (31-37) 32g/dL (31-37) Red Cell Distribution Width 20.5% (11.5-14.5) 20.9% (11.5-14.5) Platelet Count 182x10^3/uL (140-400) 268x10^3/uL (140-400) Neutrophils (%) (Auto) 82% (31-73) 84% (31-73) Lymphocytes (%) (Auto) 10% (24-48) 7% (24-48) Monocytes (%) (Auto) 4% (0-9) 5% (0-9) Eosinophils (%) (Auto) 3% (0-3) 3% (0-3) Basophils (%) (Auto) 1% (0-3) 1% (0-3) Neutrophils # (Auto) 5.3x10^3uL (1.8-7.7) 9.4x10^3uL (1.8-7.7) Lymphocytes # (Auto) 0.6x10^3/uL (1.0-4.8) 0.8x10^3/uL (1.0-4.8) Monocytes # (Auto) 0.3x10^3/uL (0.0-1.1) 0.5x10^3/uL (0.0-1.1) Eosinophils # (Auto) 0.2x10^3/uL (0.0-0.7) 0.3x10^3/uL (0.0-0.7) Basophils # (Auto) 0.1x10^3/uL (0.0-0.2) 0.1x10^3/uL (0.0-0.2) Platelet Estimate Adequate (ADEQUATE) Polychromasia Slight Poikilocytosis Mod Anisocytosis Mod Spherocytes Occ Ovalocytes Few [place]camore Cells Occ Acanthocytes Few Schistocytes Few Sodium Level 142mmol/L (136-145) 138mmol/L (136-145) Potassium Level 4.8mmol/L (3.5-5.1) 5.7mmol/L (3.5-5.1) Chloride Level 102mmol/L (98-107) 101mmol/L (98-107) Carbon Dioxide Level 23mmol/L (21-32) 21mmol/L (21-32) Anion Gap 17 (6-14) 16 (6-14) Blood Urea Nitrogen 56mg/dL (7-20) 66mg/dL (7-20) Creatinine 5.6mg/dL (0.6-1.0) 6.8mg/dL (0.6-1.0) Estimated GFR (Cockcroft-Gault) 9.2 7.3 BUN/Creatinine Ratio 10 (6-20) Glucose Level 82mg/dL (70-99) 102mg/dL (70-99) Calcium Level 9.2mg/dL (8.5-10.1) 9.5mg/dL (8.5-10.1) Total Bilirubin 0.6mg/dL (0.2-1.0) Aspartate Amino Transf (AST/SGOT) 14U/L (15-37) Alanine Aminotransferase (ALT/SGPT) 13U/L (14-59) Alkaline Phosphatase 765U/L (46-116) Total Protein 6.6g/dL (6.4-8.2) Albumin 3.3g/dL (3.4-5.0) Albumin/Globulin Ratio 1.0 (1.0-1.7) Lipase 141U/L (73-393) Random Vancomycin Level 7.0mcg/mL Laboratory Tests Test 04/17/16 13:20 04/17/16 20:15 04/18/16 06:00 White Blood Count 6.5x10^3/uL (4.0-11.0) 11.1x10^3/uL (4.0-11.0) Red Blood Count 2.74x10^6/uL (3.50-5.40) 3.10x10^6/uL (3.50-5.40) Hemoglobin 8.5g/dL (12.0-15.5) 9.6g/dL (12.0-15.5) Hematocrit 26.6% (36.0-47.0) 29.9% (36.0-47.0) Mean Corpuscular Volume 97fL (79-100) 96fL (79-100) Mean Corpuscular Hemoglobin 31pg (25-35) 31pg (25-35) Mean Corpuscular Hemoglobin Concent 32g/dL (31-37) 32g/dL (31-37) Red Cell Distribution Width 20.5% (11.5-14.5) 20.9% (11.5-14.5) Platelet Count 182x10^3/uL (140-400) 268x10^3/uL (140-400) Neutrophils (%) (Auto) 82% (31-73) 84% (31-73) Lymphocytes (%) (Auto) 10% (24-48) 7% (24-48) Monocytes (%) (Auto) 4% (0-9) 5% (0-9) Eosinophils (%) (Auto) 3% (0-3) 3% (0-3) Basophils (%) (Auto) 1% (0-3) 1% (0-3) Neutrophils # (Auto) 5.3x10^3uL (1.8-7.7) 9.4x10^3uL (1.8-7.7) Lymphocytes # (Auto) 0.6x10^3/uL (1.0-4.8) 0.8x10^3/uL (1.0-4.8) Monocytes # (Auto) 0.3x10^3/uL (0.0-1.1) 0.5x10^3/uL (0.0-1.1) Eosinophils # (Auto) 0.2x10^3/uL (0.0-0.7) 0.3x10^3/uL (0.0-0.7) Basophils # (Auto) 0.1x10^3/uL (0.0-0.2) 0.1x10^3/uL (0.0-0.2) Platelet Estimate Adequate (ADEQUATE) Polychromasia Slight Poikilocytosis Mod Anisocytosis Mod Spherocytes Occ Ovalocytes Few Kimberly Cells Occ Acanthocytes Few Schistocytes Few Sodium Level 142mmol/L (136-145) 138mmol/L (136-145) Potassium Level 4.8mmol/L (3.5-5.1) 5.7mmol/L (3.5-5.1) Chloride Level 102mmol/L (98-107) 101mmol/L (98-107) Carbon Dioxide Level 23mmol/L (21-32) 21mmol/L (21-32) Anion Gap 17 (6-14) 16 (6-14) Blood Urea Nitrogen 56mg/dL (7-20) 66mg/dL (7-20) Creatinine 5.6mg/dL (0.6-1.0) 6.8mg/dL (0.6-1.0) Estimated GFR (Cockcroft-Gault) 9.2 7.3 BUN/Creatinine Ratio 10 (6-20) Glucose Level 82mg/dL (70-99) 102mg/dL (70-99) Calcium Level 9.2mg/dL (8.5-10.1) 9.5mg/dL (8.5-10.1) Total Bilirubin 0.6mg/dL (0.2-1.0) Aspartate Amino Transf (AST/SGOT) 14U/L (15-37) Alanine Aminotransferase (ALT/SGPT) 13U/L (14-59) Alkaline Phosphatase 765U/L (46-116) Total Protein 6.6g/dL (6.4-8.2) Albumin 3.3g/dL (3.4-5.0) Albumin/Globulin Ratio 1.0 (1.0-1.7) Lipase 141U/L (73-393) Random Vancomycin Level 7.0mcg/mL Assessment/Plan Assessment/Plan IMP HYPERKALEMIA ANEMIA ESRD ABD PAIN-? PANCREATITIS PLAN ARANESP HD TODAY UF TO DW ABD PAIN WORKUP WILL FOLLOW USUAL HD SCHEDULE IS TTS RUSLAN TEMPLE MD Apr 18, 2016 10:53
[2016-04-18] MEDS: ALPRAZOLAM 1 MG TABLET PO PRN ×2 (10:56→18:27)
--- NOTE | 2016-04-18 13:09 | PDOC2 ---
CONSULT Date of Consult Date of Consult DATE: 04/18/16 TIME: 13:02 Reason for Consult Reason for Consult: Right hip possible fracture Identification/Chief Complaint Chief Complaint Right hip Source Source: Chart review, Patient History of Present Illness Reason for Visit: This 26-year-old woman with end-stage renal disease presented to [facility] in February with a right hip fracture. She was referred to [facility] for advance treatment of this potentially devastating fracture. She had internal fixation, but it later became infected. About 3 weeks ago she underwent screw removal, apparent excision of the femoral head converted to a Girdlestone procedure, and apparent placement of antibiotic beads. She was told by her surgeon, at [facility]? That no further surgeries are planned and that she would not be able to walk for about 6 more months. She is to be toe-touch weightbearing until further notice. It sounds from her description that she had a Girdlestone procedure. She is also complaining of back and pelvic sacral pain. Past Medical History Cardiovascular: HTN Heme/Onc: Anemia NOS Psych: Anxiety Musculoskeletal: Weakness Renal/: Chronic renal failure, UTI, Other Endocrine: Hyperparathyroidism Past Surgical History Past Surgical History: Other (she had open treatment internal fixation of a hip fracture in February. In March she had removal of the hardware, upper removal of the femoral head and placement of antibiotic beads into the acetabulum.) Family History Family History: Hypertension Social History ALCOHOL: none Drugs: None Lives: with Family Current Problem List Problem List Problems Medical Problems: (1) Abdominal pain Status: Acute (2) Hip fracture, right Status: Acute (3) Lumbar compression fracture Status: Acute Current Medications Current Medications Current Medications Fentanyl Citrate (Fentanyl 2ml Vial) 50 mcg 1X ONCE IV Last administered on 13:36; Start 04/17/16 at 13:00; Stop 04/17/16 at 13:01; Status DC Hydralazine HCl (Apresoline) 10 mg 1X ONCE IVP Last administered on 04/17/16 13:33; Start 04/17/16 at 13:15; Stop 04/17/16 at 13:16; Status DC Ondansetron HCl (Zofran) 4 mg 1X ONCE IV Last administered on 04/17/16 13:35 ; Start 04/17/16 at 13:15; Stop 04/17/16 at 13:16; Status DC Lorazepam (Ativan) 0.5 mg 1X STAT IV Last administered on 04/17/16 14:12; Start 04/17/16 at 14:08; Stop 04/17/16 at 14:09; Status DC Fentanyl Citrate (Fentanyl 2ml Vial) 50 mcg 1X ONCE IV Last administered on 14:32; Start 04/17/16 at 14:45; Stop 04/17/16 at 14:46; Status DC Ondansetron HCl (Zofran) 4 mg PRN Q8HRS PRN IV NAUSEA/VOMITING Last administered on 04/18/16 07:21; Start 04/17/16 at 14:45; Stop 04/18/16 at 08:48 ; Status DC Fentanyl Citrate 50 mcg 50 mcg PRN Q2HR PRN IV PAIN Last administered on 17:34; Start 04/17/16 at 14:45; Stop 04/17/16 at 18:47; Status DC Sodium Chloride (Iv Sodium Chloride 0.9% 1000ml Bag) 1,000 ml @ 125 mls/hr Q8H IV Last administered on 04/17/16 15:12; Start 04/17/16 at 15:00; Stop at 02:19; Status DC Acetaminophen (Tylenol) 650 mg PRN Q4HRS PRN PO FEVER; Start 04/17/16 at 14:45 ; Stop 04/18/16 at 08:48; Status DC Diphenhydramine HCl (Benadryl) 25 mg 1X ONCE IVP Last administered on 15:15; Start 04/17/16 at 15:15; Stop 04/17/16 at 15:16; Status DC Hydralazine HCl (Apresoline) 10 mg PRN Q4HRS PRN IVP for SBP > 170 Last administered on 04/17/16 18:19; Start 04/17/16 at 18:15 Fentanyl Citrate (Fentanyl 2ml Vial) 25 mcg PRN Q2HR PRN IV PAIN Last administered on 04/18/16 11:45; Start 04/17/16 at 19:00 Vancomycin HCl (Vanco Per Pharmacy) 1 each PRN DAILY PRN MC SEE COMMENTS Last administered on 04/17/16 20:49; Start 04/17/16 at 19:00 Acetaminophen (Tylenol) 325 mg PRN Q6HRS PRN PO MILD PAIN / TEMP; Start at 19:00 Acetaminophen/ Hydrocodone Bitart (Lortab 5/325) 1 tab PRN Q6HRS PRN PO MODERATE TO SEVERE PAIN; Start 04/17/16 at 19:00 Hydralazine HCl (Apresoline) 10 mg PRN Q4HRS PRN IVP ELEVATED BP, SEE COMMENTS ; Start 04/17/16 at 19:00; Stop 04/18/16 at 08:49; Status DC Ondansetron HCl (Zofran) 4 mg PRN Q8HRS PRN IV NAUSEA/VOMITING; Start 04/17/16 at 19:00 Albuterol Sulfate 2.5 mg 2.5 mg PRN Q4HRS PRN NEB SHORTNESS OF BREATH; Start at 19:00 Vancomycin HCl/ Sodium Chloride (Iv Sodium Chloride 0.9% 250ml) 250 ml @ 166.667 mls/hr 1X ONCE IV ; Start 04/17/16 at 19:00; Stop 04/17/16 at 20:29; Status Cancel Alprazolam (Xanax) 2 mg PRN TID PRN PO ANXIETY / AGITATION Last administered on 04/18/16 10:56; Start 04/17/16 at 19:15 Amlodipine Besylate (Norvasc) 10 mg DAILY PO Last administered on 04/18/16 07: 22; Start 04/17/16 at 20:00 Hydralazine HCl (Apresoline) 50 mg TID PO Last administered on 04/18/16 07:22 ; Start 04/17/16 at 21:00 Oxycodone/ Acetaminophen (Percocet 7.5/ 325) 1 tab PRN Q8HRS PRN PO PAIN Last administered on 04/18/16 07:20; Start 04/17/16 at 19:15 Metoprolol Succinate (Toprol Xl) 200 mg DAILY PO Last administered on 07:23; Start 04/17/16 at 20:00 Vancomycin HCl 1 each 1X ONCE MC Last administered on 04/17/16 20:15; Start 04/17/16 at 19:30; Stop 04/17/16 at 19:31; Status DC Fentanyl Citrate 25 mcg 25 mcg 1X ONCE IV Last administered on 04/17/16t 20:43 ; Start 04/17/16 at 20:45; Stop 04/17/16 at 20:46; Status DC Vancomycin HCl/ Sodium Chloride (Iv Sodium Chloride 0.9% 250ml) 250 ml @ 250 mls/hr 1X ONCE IV Last administered on 04/17/16t 21:30; Start 04/17/16 at 21: 00; Stop 04/17/16 at 21:59; Status DC Darbepoetin Jude (Aranesp) 60 mcg WEEKLYHS SQ ; Start 04/18/16 at 21:00 Methylnaltrexone [place] (Relistor) 8 mg 1X ONCE SQ ; Start 04/18/16 at 13:30; Stop 04/18/16 at 13:31 Linaclotide (Linzess) 145 mcg DAILY07 PO ; Start 04/18/16 at 13:30 Pantoprazole Sodium (Protonix) 40 mg DAILYAC PO ; Start 04/18/16 at 13:30 Polyethylene Glycol (miraLAX PACKET) 17 gm DAILY PO ; Start 04/18/16 at 13:30 Active Scripts Active Zofran Odt (Ondansetron) 4 Mg Tab.rapdis 1 Tab SL Q8HRS PRN Reported Percocet 7.5-325 Mg Tablet (Oxycodone/Acetaminophen) 1 Each Tablet 1 Tab PO PRN Q8HRS PRN Xanax (Alprazolam) 0.25 Mg Tablet 2 Mg PO TID PRN Metoprolol Succinate ( Xl ) (Metoprolol Succinate) 200 Mg Tab.er.24h 1 Tab PO DAILY Hydralazine Hcl 50 Mg Tablet 1 Tab PO TID Amlodipine Besylate 10 Mg Tablet 1 Tab PO DAILY Allergies Allergies: Coded Allergies: Sulfa (Sulfonamide Antibiotics) (Verified Allergy, Intermediate, 07/07/14) haloperidol (Verified Allergy, Intermediate, Anxiety, 04/18/16) Physical Exam General: Cooperative HEENT: Other ([place] face presumedly secondary to prednisone) MUSCULOSKELETAL: Other (she is tender at the lower lumbar spine. She is tender at the sacrum. The right hip incision is well-healed with no drainage. There is a curvilinear incision at the right hip. She has good range of motion of the hip I was able to flex beyond 90. She said it is more comfortable to keep the hip flexed than extended.) Vitals VITALS Vital Signs Date Time Temp Pulse Resp B/P Pulse Ox O2 Delivery O2 Flow Rate FiO2 04/18/16 12:37 18 95 Room Air 2.0 04/18/16 10:37 98.7 83 122/84 98.7 Labs Labs Laboratory Tests Test 04/17/16 13:20 04/17/16 20:15 04/18/16 06:00 White Blood Count 6.5x10^3/uL (4.0-11.0) 11.1x10^3/uL (4.0-11.0) Red Blood Count 2.74x10^6/uL (3.50-5.40) 3.10x10^6/uL (3.50-5.40) Hemoglobin 8.5g/dL (12.0-15.5) 9.6g/dL (12.0-15.5) Hematocrit 26.6% (36.0-47.0) 29.9% (36.0-47.0) Mean Corpuscular Volume 97fL (79-100) 96fL (79-100) Mean Corpuscular Hemoglobin 31pg (25-35) 31pg (25-35) Mean Corpuscular Hemoglobin Concent 32g/dL (31-37) 32g/dL (31-37) Red Cell Distribution Width 20.5% (11.5-14.5) 20.9% (11.5-14.5) Platelet Count 182x10^3/uL (140-400) 268x10^3/uL (140-400) Neutrophils (%) (Auto) 82% (31-73) 84% (31-73) Lymphocytes (%) (Auto) 10% (24-48) 7% (24-48) Monocytes (%) (Auto) 4% (0-9) 5% (0-9) Eosinophils (%) (Auto) 3% (0-3) 3% (0-3) Basophils (%) (Auto) 1% (0-3) 1% (0-3) Neutrophils # (Auto) 5.3x10^3uL (1.8-7.7) 9.4x10^3uL (1.8-7.7) Lymphocytes # (Auto) 0.6x10^3/uL (1.0-4.8) 0.8x10^3/uL (1.0-4.8) Monocytes # (Auto) 0.3x10^3/uL (0.0-1.1) 0.5x10^3/uL (0.0-1.1) Eosinophils # (Auto) 0.2x10^3/uL (0.0-0.7) 0.3x10^3/uL (0.0-0.7) Basophils # (Auto) 0.1x10^3/uL (0.0-0.2) 0.1x10^3/uL (0.0-0.2) Platelet Estimate Adequate (ADEQUATE) Polychromasia Slight Poikilocytosis Mod Anisocytosis Mod Spherocytes Occ Ovalocytes Few Kimberly Cells Occ Acanthocytes Few Schistocytes Few Sodium Level 142mmol/L (136-145) 138mmol/L (136-145) Potassium Level 4.8mmol/L (3.5-5.1) 5.7mmol/L (3.5-5.1) Chloride Level 102mmol/L (98-107) 101mmol/L (98-107) Carbon Dioxide Level 23mmol/L (21-32) 21mmol/L (21-32) Anion Gap 17 (6-14) 16 (6-14) Blood Urea Nitrogen 56mg/dL (7-20) 66mg/dL (7-20) Creatinine 5.6mg/dL (0.6-1.0) 6.8mg/dL (0.6-1.0) Estimated GFR (Cockcroft-Gault) 9.2 7.3 BUN/Creatinine Ratio 10 (6-20) Glucose Level 82mg/dL (70-99) 102mg/dL (70-99) Calcium Level 9.2mg/dL (8.5-10.1) 9.5mg/dL (8.5-10.1) Total Bilirubin 0.6mg/dL (0.2-1.0) Aspartate Amino Transf (AST/SGOT) 14U/L (15-37) Alanine Aminotransferase (ALT/SGPT) 13U/L (14-59) Alkaline Phosphatase 765U/L (46-116) Total Protein 6.6g/dL (6.4-8.2) Albumin 3.3g/dL (3.4-5.0) Albumin/Globulin Ratio 1.0 (1.0-1.7) Lipase 141U/L (73-393) Random Vancomycin Level 7.0mcg/mL Laboratory Tests Test 04/17/16 13:20 04/17/16 20:15 04/18/16 06:00 White Blood Count 6.5x10^3/uL (4.0-11.0) 11.1x10^3/uL (4.0-11.0) Red Blood Count 2.74x10^6/uL (3.50-5.40) 3.10x10^6/uL (3.50-5.40) Hemoglobin 8.5g/dL (12.0-15.5) 9.6g/dL (12.0-15.5) Hematocrit 26.6% (36.0-47.0) 29.9% (36.0-47.0) Mean Corpuscular Volume 97fL (79-100) 96fL (79-100) Mean Corpuscular Hemoglobin 31pg (25-35) 31pg (25-35) Mean Corpuscular Hemoglobin Concent 32g/dL (31-37) 32g/dL (31-37) Red Cell Distribution Width 20.5% (11.5-14.5) 20.9% (11.5-14.5) Platelet Count 182x10^3/uL (140-400) 268x10^3/uL (140-400) Neutrophils (%) (Auto) 82% (31-73) 84% (31-73) Lymphocytes (%) (Auto) 10% (24-48) 7% (24-48) Monocytes (%) (Auto) 4% (0-9) 5% (0-9) Eosinophils (%) (Auto) 3% (0-3) 3% (0-3) Basophils (%) (Auto) 1% (0-3) 1% (0-3) Neutrophils # (Auto) 5.3x10^3uL (1.8-7.7) 9.4x10^3uL (1.8-7.7) Lymphocytes # (Auto) 0.6x10^3/uL (1.0-4.8) 0.8x10^3/uL (1.0-4.8) Monocytes # (Auto) 0.3x10^3/uL (0.0-1.1) 0.5x10^3/uL (0.0-1.1) Eosinophils # (Auto) 0.2x10^3/uL (0.0-0.7) 0.3x10^3/uL (0.0-0.7) Basophils # (Auto) 0.1x10^3/uL (0.0-0.2) 0.1x10^3/uL (0.0-0.2) Platelet Estimate Adequate (ADEQUATE) Polychromasia Slight Poikilocytosis Mod Anisocytosis Mod Spherocytes Occ Ovalocytes Few Kimberly Cells Occ Acanthocytes Few Schistocytes Few Sodium Level 142mmol/L (136-145) 138mmol/L (136-145) Potassium Level 4.8mmol/L (3.5-5.1) 5.7mmol/L (3.5-5.1) Chloride Level 102mmol/L (98-107) 101mmol/L (98-107) Carbon Dioxide Level 23mmol/L (21-32) 21mmol/L (21-32) Anion Gap 17 (6-14) 16 (6-14) Blood Urea Nitrogen 56mg/dL (7-20) 66mg/dL (7-20) Creatinine 5.6mg/dL (0.6-1.0) 6.8mg/dL (0.6-1.0) Estimated GFR (Cockcroft-Gault) 9.2 7.3 BUN/Creatinine Ratio 10 (6-20) Glucose Level 82mg/dL (70-99) 102mg/dL (70-99) Calcium Level 9.2mg/dL (8.5-10.1) 9.5mg/dL (8.5-10.1) Total Bilirubin 0.6mg/dL (0.2-1.0) Aspartate Amino Transf (AST/SGOT) 14U/L (15-37) Alanine Aminotransferase (ALT/SGPT) 13U/L (14-59) Alkaline Phosphatase 765U/L (46-116) Total Protein 6.6g/dL (6.4-8.2) Albumin 3.3g/dL (3.4-5.0) Albumin/Globulin Ratio 1.0 (1.0-1.7) Lipase 141U/L (73-393) Random Vancomycin Level 7.0mcg/mL Images Images Her plain films of the hip and pelvis were reviewed. She has excision of the femoral head, and presumed anabolic beads in the acetabulum. Although there is some discontinuity of the architecture, this is not a true dislocation and represents postsurgical changes. Her changes are consistent with a Girdlestone procedure, uncomplicated. CT scans show sacral and lumbar insufficiency fractures, possible old. Assessment/Plan Assessment/Plan Status post right hip Girdlestone procedure. History of a hip joint infection. She should continue with toe-touch weightbearing. No surgery is needed at this time. She has a PICC line placed for ongoing treatment of her previous septic hip joint and should continue with antibiotics as directed by [facility]. She should keep her scheduled follow-up with [facility] orthopedics for her hip. She may proceed with physical therapy toe-touch weightbearing only on the right, once her sacral and lumbar spine issues are improved. Sacral insufficiency and vertebral insufficiency fractures. Dr. Gaines was consult with interventional radiology. He can assess her for suitability for sacral plasty or vertebroplasty. I think these would help her pain, although she would be high risk for infection or other complications. If he is able to do procedures on the lumbar spine and sacrum, then it will help her mobility and she may proceed with the physical therapy as directed by Dr. Gaines. I would continue her limited activity bed rest and transfers only for now. I presume he will see her on Tuesday. DEVON CELESTIN MD Apr 18, 2016 13:09
[2016-04-18] MEDS: PANTOPRAZOLE 40 MG TABLET. PO SCH (13:21)
[2016-04-18] MEDS ORDERED: LINACLOTIDE 145 MCG CAPSULE. PO SCH (13:30)
[2016-04-18] MEDS ORDERED: METHYLNALTREXONE 12 MG/0.6 ML VIAL. SQ ONE (13:30)
[2016-04-18] MEDS ORDERED: POLYETHYLENE GLYCOL 3350 17 GM PACKET. PO SCH (13:30)
[2016-04-18] MEDS ORDERED: ONDANSETRON PF 4 MG/2 ML VIAL. IV PRN (13:57)
[2016-04-18] MEDS: VANCOMYCIN PER PHARMACY MC PRN (14:06)
[2016-04-18] MEDS ORDERED: POLYETHYLENE GLYCOL 3350 17 GM PACKET. PO PRN (14:45)
--- NOTE | 2016-04-18 14:47 | PDOC ---
PROGRESS NOTES Chief Complaint Chief Complaint 1. Intractable abdominal pain, unclear but multiple possible differentials, ascites and L2 compression fracture and possible peritonitis. 2. Gastritis. 4. Uncontrolled hypertension. 5. End-stage renal disease, on hemodialysis.since age 9 after a kidney infection 6. Status post right hip Girdlestone procedure.at [facility] 7. L2 compression, pubic ramus fx 8. Diarrhea now History of Present Illness History of Present Illness Emotional today, crying bec she just had a loose stool accident in bed HAd miralax today and is also on linzess upon review of chart Also got relistor SQ x 1 HAs AV fistula left arm TElls me has been on HD since age 9 after a kidney infection Ortho notes reviewed PLAn: Dc linzess MAke miralax prn PLanned for IR involvement for the back/msk pain issues HD per renal Involve physiatry for the acute mSK pains Vitals Vitals Vital Signs Date Time Temp Pulse Resp B/P Pulse Ox O2 Delivery O2 Flow Rate FiO2 04/18/16 14:02 18 95 Room Air 2.0 04/18/16 13:22 83 122/84 04/18/16 10:37 98.7 98.7 Physical Exam General: Cooperative Heart: Regular rate, Normal S1, Normal S2 Lungs: Clear Abdomen: Normal bowel sounds, Soft, No tenderness Extremities: No clubbing, Other (LEFT ARM AVF HAS A GOOD THRILL AND BRUIT) Skin: No rashes Labs LABS Laboratory Tests Test 04/17/16 20:15 04/18/16 06:00 Random Vancomycin Level 7.0mcg/mL White Blood Count 11.1x10^3/uL (4.0-11.0) Red Blood Count 3.10x10^6/uL (3.50-5.40) Hemoglobin 9.6g/dL (12.0-15.5) Hematocrit 29.9% (36.0-47.0) Mean Corpuscular Volume 96fL (79-100) Mean Corpuscular Hemoglobin 31pg (25-35) Mean Corpuscular Hemoglobin Concent 32g/dL (31-37) Red Cell Distribution Width 20.9% (11.5-14.5) Platelet Count 268x10^3/uL (140-400) Neutrophils (%) (Auto) 84% (31-73) Lymphocytes (%) (Auto) 7% (24-48) Monocytes (%) (Auto) 5% (0-9) Eosinophils (%) (Auto) 3% (0-3) Basophils (%) (Auto) 1% (0-3) Neutrophils # (Auto) 9.4x10^3uL (1.8-7.7) Lymphocytes # (Auto) 0.8x10^3/uL (1.0-4.8) Monocytes # (Auto) 0.5x10^3/uL (0.0-1.1) Eosinophils # (Auto) 0.3x10^3/uL (0.0-0.7) Basophils # (Auto) 0.1x10^3/uL (0.0-0.2) Sodium Level 138mmol/L (136-145) Potassium Level 5.7mmol/L (3.5-5.1) Chloride Level 101mmol/L (98-107) Carbon Dioxide Level 21mmol/L (21-32) Anion Gap 16 (6-14) Blood Urea Nitrogen 66mg/dL (7-20) Creatinine 6.8mg/dL (0.6-1.0) Estimated GFR (Cockcroft-Gault) 7.3 Glucose Level 102mg/dL (70-99) Calcium Level 9.5mg/dL (8.5-10.1) Review of Systems Review of Systems cant be obtained today, emotional Assessment and Plan Assessmemt and Plan Problems Medical Problems: (1) Abdominal pain Status: Acute (2) Hip fracture, right Status: Acute (3) Lumbar compression fracture Status: Acute Problems: Comment Review of Relevant I have reviewed the following items lynnette (where applicable) has been applied. Labs Laboratory Tests Test 04/17/16 13:20 04/17/16 20:15 04/18/16 06:00 White Blood Count 6.5x10^3/uL (4.0-11.0) 11.1x10^3/uL (4.0-11.0) Red Blood Count 2.74x10^6/uL (3.50-5.40) 3.10x10^6/uL (3.50-5.40) Hemoglobin 8.5g/dL (12.0-15.5) 9.6g/dL (12.0-15.5) Hematocrit 26.6% (36.0-47.0) 29.9% (36.0-47.0) Mean Corpuscular Volume 97fL (79-100) 96fL (79-100) Mean Corpuscular Hemoglobin 31pg (25-35) 31pg (25-35) Mean Corpuscular Hemoglobin Concent 32g/dL (31-37) 32g/dL (31-37) Red Cell Distribution Width 20.5% (11.5-14.5) 20.9% (11.5-14.5) Platelet Count 182x10^3/uL (140-400) 268x10^3/uL (140-400) Neutrophils (%) (Auto) 82% (31-73) 84% (31-73) Lymphocytes (%) (Auto) 10% (24-48) 7% (24-48) Monocytes (%) (Auto) 4% (0-9) 5% (0-9) Eosinophils (%) (Auto) 3% (0-3) 3% (0-3) Basophils (%) (Auto) 1% (0-3) 1% (0-3) Neutrophils # (Auto) 5.3x10^3uL (1.8-7.7) 9.4x10^3uL (1.8-7.7) Lymphocytes # (Auto) 0.6x10^3/uL (1.0-4.8) 0.8x10^3/uL (1.0-4.8) Monocytes # (Auto) 0.3x10^3/uL (0.0-1.1) 0.5x10^3/uL (0.0-1.1) Eosinophils # (Auto) 0.2x10^3/uL (0.0-0.7) 0.3x10^3/uL (0.0-0.7) Basophils # (Auto) 0.1x10^3/uL (0.0-0.2) 0.1x10^3/uL (0.0-0.2) Platelet Estimate Adequate (ADEQUATE) Polychromasia Slight Poikilocytosis Mod Anisocytosis Mod Spherocytes Occ Ovalocytes Few [place] Cells Occ Acanthocytes Few Schistocytes Few Sodium Level 142mmol/L (136-145) 138mmol/L (136-145) Potassium Level 4.8mmol/L (3.5-5.1) 5.7mmol/L (3.5-5.1) Chloride Level 102mmol/L (98-107) 101mmol/L (98-107) Carbon Dioxide Level 23mmol/L (21-32) 21mmol/L (21-32) Anion Gap 17 (6-14) 16 (6-14) Blood Urea Nitrogen 56mg/dL (7-20) 66mg/dL (7-20) Creatinine 5.6mg/dL (0.6-1.0) 6.8mg/dL (0.6-1.0) Estimated GFR (Cockcroft-Gault) 9.2 7.3 BUN/Creatinine Ratio 10 (6-20) Glucose Level 82mg/dL (70-99) 102mg/dL (70-99) Calcium Level 9.2mg/dL (8.5-10.1) 9.5mg/dL (8.5-10.1) Total Bilirubin 0.6mg/dL (0.2-1.0) Aspartate Amino Transf (AST/SGOT) 14U/L (15-37) Alanine Aminotransferase (ALT/SGPT) 13U/L (14-59) Alkaline Phosphatase 765U/L (46-116) Total Protein 6.6g/dL (6.4-8.2) Albumin 3.3g/dL (3.4-5.0) Albumin/Globulin Ratio 1.0 (1.0-1.7) Lipase 141U/L (73-393) Random Vancomycin Level 7.0mcg/mL Laboratory Tests Test 04/17/16 20:15 04/18/16 06:00 Random Vancomycin Level 7.0mcg/mL White Blood Count 11.1x10^3/uL (4.0-11.0) Red Blood Count 3.10x10^6/uL (3.50-5.40) Hemoglobin 9.6g/dL (12.0-15.5) Hematocrit 29.9% (36.0-47.0) Mean Corpuscular Volume 96fL (79-100) Mean Corpuscular Hemoglobin 31pg (25-35) Mean Corpuscular Hemoglobin Concent 32g/dL (31-37) Red Cell Distribution Width 20.9% (11.5-14.5) Platelet Count 268x10^3/uL (140-400) Neutrophils (%) (Auto) 84% (31-73) Lymphocytes (%) (Auto) 7% (24-48) Monocytes (%) (Auto) 5% (0-9) Eosinophils (%) (Auto) 3% (0-3) Basophils (%) (Auto) 1% (0-3) Neutrophils # (Auto) 9.4x10^3uL (1.8-7.7) Lymphocytes # (Auto) 0.8x10^3/uL (1.0-4.8) Monocytes # (Auto) 0.5x10^3/uL (0.0-1.1) Eosinophils # (Auto) 0.3x10^3/uL (0.0-0.7) Basophils # (Auto) 0.1x10^3/uL (0.0-0.2) Sodium Level 138mmol/L (136-145) Potassium Level 5.7mmol/L (3.5-5.1) Chloride Level 101mmol/L (98-107) Carbon Dioxide Level 21mmol/L (21-32) Anion Gap 16 (6-14) Blood Urea Nitrogen 66mg/dL (7-20) Creatinine 6.8mg/dL (0.6-1.0) Estimated GFR (Cockcroft-Gault) 7.3 Glucose Level 102mg/dL (70-99) Calcium Level 9.5mg/dL (8.5-10.1) Medications Current Medications Fentanyl Citrate (Fentanyl 2ml Vial) 50 mcg 1X ONCE IV Last administered on 13:36; Start 04/17/16 at 13:00; Stop 04/17/16 at 13:01; Status DC Hydralazine HCl (Apresoline) 10 mg 1X ONCE IVP Last administered on 04/17/16 13:33; Start 04/17/16 at 13:15; Stop 04/17/16 at 13:16; Status DC Ondansetron HCl (Zofran) 4 mg 1X ONCE IV Last administered on 04/17/16 13:35 ; Start 04/17/16 at 13:15; Stop 04/17/16 at 13:16; Status DC Lorazepam (Ativan) 0.5 mg 1X STAT IV Last administered on 04/17/16 14:12; Start 04/17/16 at 14:08; Stop 04/17/16 at 14:09; Status DC Fentanyl Citrate (Fentanyl 2ml Vial) 50 mcg 1X ONCE IV Last administered on 14:32; Start 04/17/16 at 14:45; Stop 04/17/16 at 14:46; Status DC Ondansetron HCl (Zofran) 4 mg PRN Q8HRS PRN IV NAUSEA/VOMITING Last administered on 04/18/16 07:21; Start 04/17/16 at 14:45; Stop 04/18/16 at 08:48 ; Status DC Fentanyl Citrate 50 mcg 50 mcg PRN Q2HR PRN IV PAIN Last administered on 17:34; Start 04/17/16 at 14:45; Stop 04/17/16 at 18:47; Status DC Sodium Chloride (Iv Sodium Chloride 0.9% 1000ml Bag) 1,000 ml @ 125 mls/hr Q8H IV Last administered on 04/17/16 15:12; Start 04/17/16 at 15:00; Stop at 02:19; Status DC Acetaminophen (Tylenol) 650 mg PRN Q4HRS PRN PO FEVER; Start 04/17/16 at 14:45 ; Stop 04/18/16 at 08:48; Status DC Diphenhydramine HCl (Benadryl) 25 mg 1X ONCE IVP Last administered on 15:15; Start 04/17/16 at 15:15; Stop 04/17/16 at 15:16; Status DC Hydralazine HCl (Apresoline) 10 mg PRN Q4HRS PRN IVP for SBP > 170 Last administered on 04/17/16 18:19; Start 04/17/16 at 18:15 Fentanyl Citrate (Fentanyl 2ml Vial) 25 mcg PRN Q2HR PRN IV PAIN Last administered on 04/18/16 14:02; Start 04/17/16 at 19:00 Vancomycin HCl (Vanco Per Pharmacy) 1 each PRN DAILY PRN MC SEE COMMENTS Last administered on 04/18/16 14:06; Start 04/17/16 at 19:00 Acetaminophen (Tylenol) 325 mg PRN Q6HRS PRN PO MILD PAIN / TEMP; Start at 19:00 Acetaminophen/ Hydrocodone Bitart (Lortab 5/325) 1 tab PRN Q6HRS PRN PO MODERATE TO SEVERE PAIN; Start 04/17/16 at 19:00 Hydralazine HCl (Apresoline) 10 mg PRN Q4HRS PRN IVP ELEVATED BP, SEE COMMENTS ; Start 04/17/16 at 19:00; Stop 04/18/16 at 08:49; Status DC Ondansetron HCl (Zofran) 4 mg PRN Q8HRS PRN IV NAUSEA/VOMITING; Start 04/17/16 at 19:00; Stop 04/18/16 at 13:58; Status DC Albuterol Sulfate 2.5 mg 2.5 mg PRN Q4HRS PRN NEB SHORTNESS OF BREATH; Start at 19:00 Vancomycin HCl/ Sodium Chloride (Iv Sodium Chloride 0.9% 250ml) 250 ml @ 166.667 mls/hr 1X ONCE IV ; Start 04/17/16 at 19:00; Stop 04/17/16 at 20:29; Status Cancel Alprazolam (Xanax) 2 mg PRN TID PRN PO ANXIETY / AGITATION Last administered on 04/18/16 10:56; Start 04/17/16 at 19:15 Amlodipine Besylate (Norvasc) 10 mg DAILY PO Last administered on 04/18/16 07: 22; Start 04/17/16 at 20:00 Hydralazine HCl (Apresoline) 50 mg TID PO Last administered on 04/18/16 13:22 ; Start 04/17/16 at 21:00 Oxycodone/ Acetaminophen (Percocet 7.5/ 325) 1 tab PRN Q8HRS PRN PO PAIN Last administered on 04/18/16 07:20; Start 04/17/16 at 19:15 Metoprolol Succinate (Toprol Xl) 200 mg DAILY PO Last administered on 07:23; Start 04/17/16 at 20:00 Vancomycin HCl 1 each 1X ONCE MC Last administered on 04/17/16 20:15; Start 04/17/16 at 19:30; Stop 04/17/16 at 19:31; Status DC Fentanyl Citrate 25 mcg 25 mcg 1X ONCE IV Last administered on 04/17/16 20:43 ; Start 04/17/16 at 20:45; Stop 04/17/16 at 20:46; Status DC Vancomycin HCl/ Sodium Chloride (Iv Sodium Chloride 0.9% 250ml) 250 ml @ 250 mls/hr 1X ONCE IV Last administered on 04/17/16 21:30; Start 04/17/16 at 21: 00; Stop 04/17/16 at 21:59; Status DC Darbepoetin Jude (Aranesp) 60 mcg WEEKLYHS SQ ; Start 04/18/16 at 21:00 Methylnaltrexone [place] (Relistor) 8 mg 1X ONCE SQ Last administered on 13:21; Start 04/18/16 at 13:30; Stop 04/18/16 at 13:31; Status DC Linaclotide (Linzess) 145 mcg DAILY07 PO Last administered on 04/18/16 13:21; Start 04/18/16 at 13:30 Pantoprazole Sodium (Protonix) 40 mg DAILYAC PO Last administered on 04/18/16 13:21; Start 04/18/16 at 13:30 Polyethylene Glycol (miraLAX PACKET) 17 gm DAILY PO Last administered on 13:21; Start 04/18/16 at 13:30 Ondansetron HCl 4 mg 4 mg PRN Q6HRS PRN IV NAUSEA/VOMITING; Start 04/18/16 at 13:57 Vancomycin HCl 750 mg/Sodium Chloride 250 ml @ 250 mls/hr 1X ONCE IV ; Start 04/18/16 at 16:00; Stop 04/18/16 at 16:59 Vancomycin HCl/ Sodium Chloride (Iv Sodium Chloride 0.9% 100ml) 100 ml @ 100 mls/hr QTUTHSA IV ; Start 04/20/16 at 16:00 Active Scripts Active Zofran Odt (Ondansetron) 4 Mg Tab.rapdis 1 Tab SL Q8HRS PRN Reported Percocet 7.5-325 Mg Tablet (Oxycodone/Acetaminophen) 1 Each Tablet 1 Tab PO PRN Q8HRS PRN Xanax (Alprazolam) 0.25 Mg Tablet 2 Mg PO TID PRN Metoprolol Succinate ( Xl ) (Metoprolol Succinate) 200 Mg Tab.er.24h 1 Tab PO DAILY Hydralazine Hcl 50 Mg Tablet 1 Tab PO TID Amlodipine Besylate 10 Mg Tablet 1 Tab PO DAILY Vitals/I & O Vital Sign - Last 24 Hours 04/17/16 04/17/16 04/17/16 04/17/16 15:06 15:16 15:30 16:57 Temp 97.9 97.9 Pulse 108 90 Resp 16 18 20 B/P 186/118 183/118 Pulse Ox 96 97 96 O2 Delivery Room Air Room Air Room Air Room Air 04/17/16 04/17/16 04/17/16 04/17/16 17:34 18:13 18:19 19:10 Temp 98.8 98.8 Pulse 90 109 Resp 18 16 B/P 183/118 176/114 Pulse Ox 96 96 96 O2 Delivery Room Air Room Air 04/17/16 04/17/16 04/17/16 04/17/16 19:38 19:49 19:50 20:03 Pulse 90 90 Resp 20 B/P 183/118 183/118 O2 Delivery Room Air Room Air 04/17/16 04/17/16 04/17/16 04/17/16 20:43 21:10 23:10 23:12 Pulse 90 95 Resp 16 20 18 B/P 183/118 171/126 Pulse Ox 91 96 O2 Delivery Room Air Nasal Cannula Nasal Cannula O2 Flow Rate 2.0 2.0 04/18/16 04/18/16 04/18/16 04/18/16 02:33 02:40 04:33 07:20 Temp 97.8 97.8 Pulse 87 Resp 18 18 16 20 B/P 145/116 Pulse Ox 95 95 95 O2 Delivery Room Air Room Air Room Air Room Air O2 Flow Rate 2.0 2.0 04/18/16 04/18/16 04/18/16 04/18/16 07:22 07:22 07:23 07:23 B/P 154/110 154/110 154/110 Pulse Ox 95 O2 Delivery Room Air O2 Flow Rate 2.0 04/18/16 04/18/16 04/18/16 04/18/16 07:30 08:00 08:20 09:30 Temp 97.6 97.6 Pulse 88 Resp 16 18 B/P 143/101 Pulse Ox 93 93 95 O2 Delivery Room Air Room Air Room Air Room Air O2 Flow Rate 2.0 04/18/16 04/18/16 04/18/16 04/18/16 10:37 11:45 12:37 13:22 Temp 98.7 98.7 Pulse 83 83 Resp 16 18 B/P 122/84 122/84 Pulse Ox 95 95 95 O2 Delivery Room Air Room Air Room Air O2 Flow Rate 2.0 2.0 04/18/16 14:02 Resp 18 Pulse Ox 95 O2 Delivery Room Air O2 Flow Rate 2.0 Intake and Output 04/17/16 04/17/16 04/18/16 15:00 23:00 07:00 Intake Total 100 ml 0 ml Balance 100 ml 0 ml ROGERIO BERGMAN MD Apr 18, 2016 14:46
[2016-04-18 15:00] VITALS: BP 166/128
[2016-04-18] MEDS: OXYCODONE IR 5 MG TABLET. PO PRN ×2 (15:31→18:28)
[2016-04-18] MEDS ORDERED: VANCOMYCIN 750 MG in IV NORMAL SALINE 250ML 250 ML IV ONE (16:00)
[2016-04-18] MEDS ORDERED: LIDOCAINE 1% PF 2 ML VIAL. ONE (17:12)
[2016-04-18] MEDS ORDERED: IV NORMAL SALINE 1000ML BAG 1,000 ML IV PRN (17:19)
[2016-04-18] MEDS ORDERED: DIPHENHYDRAMINE 50 MG/ML VIAL ONE (17:26)
[2016-04-18] MEDS ORDERED: DIPHENHYDRAMINE 50 MG/ML VIAL IVP ONE (17:30)
[2016-04-18] MEDS ORDERED: DIALYSIS PATIENT. MC PRN (17:30)
[2016-04-18] MEDS ORDERED: DIPHENHYDRAMINE 50 MG/ML VIAL IV PRN (17:30)
[2016-04-18 20:45] VITALS: BP 149/100
[2016-04-18] MEDS ORDERED: DARBEPOETIN ALFA 60 MCG/0.3 ML DISP.SYRIN. SQ SCH (21:00)
[2016-04-18 23:00] VITALS: BP 136/90
--- NOTE | 2016-04-19 02:27 | CONS ---
DATE OF CONSULTATION: 04/18/2016 PRIMARY CARE PHYSICIAN: Dr. Willam Taylor. CHIEF COMPLAINT: Abdominal pain. HISTORY OF PRESENT ILLNESS: This is a 26-year-old female who has a long history of renal failure, on dialysis. The renal failure was secondary to complications from streptococcus infection as a child. She has had a number of complications from her renal disease including bone disease with fractures and is on dialysis. She has a history of pancreatitis apparently in the past and has had a previous cholecystectomy. However, she has not had regular abdominal pain symptoms, but does describe very severe constipation. She takes some sort of pill that may be Amitiza from a prescription that causes her to have some diarrhea and generally just tries to manage her constipation, otherwise. She said it is a real problem for her, not going for many days and then having loose stools. She describes the onset of upper abdominal pain, mostly left upper quadrant pain during dialysis. It was a sharp stabbing pain; she said may be from her constipation. She said she has had pain like this before. It was not associated with significant nausea, no vomiting, no hematemesis. She denies a history of chronic nausea other than that occurring with her dialysis. She does not have difficulties with diet or eating that might suggest underlying peptic disease, etc. She is status post cholecystectomy as mentioned above. She had some loose stools the other night, but generally is very constipated. PAST MEDICAL HISTORY: 1. End-stage renal disease from previous streptococcus infection. 2. Bony fractures. 3. History of constipation. 4. History of pancreatitis. PAST SURGICAL HISTORY: Cholecystectomy, section, AV shunt placement, wrist fracture. SOCIAL HISTORY: Does not smoke or drink. Does occasional use marijuana. FAMILY HISTORY: Noncontributory. REVIEW OF SYSTEMS: GENERAL: Denies fever or chills. HEENT: Denies headache or blurred vision. PULMONARY: Denies shortness of breath, productive cough. CARDIOVASCULAR: Denies chest pain. GENITOURINARY: Denies dysuria. She is on dialysis. NEUROLOGIC: Denies seizures or paralysis presently, but does have a remote history of seizure disorder. PHYSICAL EXAMINATION: VITAL SIGNS: She is awake and alert. Blood pressure is 122/84, pulse is 83, respirations 18. She is afebrile. She is alert. She is anicteric. NECK: Supple. HEENT: Some mild exophthalmos. CHEST: Clear. HEART: Regular rate and rhythm. ABDOMEN: Bowel sounds are present, soft, very minimal upper abdominal tenderness. No point tenderness in the epigastric region. No lower abdominal tenderness, slight distension is noted. EXTREMITIES: No cyanosis or clubbing. NEUROLOGIC: Alert and oriented. No gross deficits. LABORATORY DATA: Hemoglobin is 9.6; white blood cell count 11,100; platelet count 268,000. Her creatinine is 6.8. Potassium is 5.7. Liver function studies, AST 14, ALT 13, alkaline phosphatase 765, albumin 3.3. Lipase 141. IMAGING: CT scan reveals a large amount of stool in the colon. She has fractures of her right femoral bone and hip fracture dislocation which is apparently chronic. Small amount of ascites, stable hepatosplenomegaly, which has not changed course. No other acute findings including no evidence for acute pancreatitis. ASSESSMENT: New onset of very sharp, crampy abdominal pain in the upper abdomen. She does not have a chronic history of peptic disease, but does have certainly risk factors based on her dialysis, but the symptoms are not typical for peptic disease. In fact, she relates the possibility of this could be because she does not move her bowels regularly and the CT certainly support severe constipation. Not only the CT, but her history as well. She has only been managed with some sort of pill at home. I think it might be Amitiza, but we do not have all those records. PLAN: 1. Since her pain is improving and she has no dyspeptic complaints presently, I think treating her constipation makes the most sense at this point. If she continues to have pain or dyspeptic complaints, then an upper endoscopy may be warranted in an elective fashion. 2. She needs better outpatient management of her constipation, but this may take some time either with Linzess, Amitiza or similar product. Acutely, however, she is on a number of narcotics, so I am going to add Relistor today along with some MiraLax to hopefully provide a bowel movement to give her some relief. Chronically, this probably is not the best approach, but we will certainly consider that option in the future. 3. Protonix will be added empirically and we will monitor her for whether or not we think peptic disease is playing any role in this acute setting. 4. Abnormal CT with hepatosplenomegaly. I am not sure the cause of this. It has been seen in the past. She does have very mild ascites on the imaging studies as well, but that is nonspecific. No further recommendations at this time. I appreciate the opportunity. LISA ORTEGA MD DR: JAYANT/phuc JOB#: [id number] / [id number] RUSLAN Seo MD
[2016-04-19] MEDS: FENTANYL PF 100 MCG/2 ML VIAL. IV PRN ×2 (04:15→08:31)
--- NOTE | 2016-04-19 07:31 | ACF ---
Admit Criteria Forms Admit Criteria Forms Admit Criteria Forms ABDOMINAL PAIN Clinical Indications for Admission to Inpatient Care (Place 'X' for any and all applicable criteria): Admission is indicated for ANY ONE of the following(1)(2)(3)(4)(5): [X]I. Inpatient admission required rather than observation care (Also use Abdominal Pain: Observation Care, as appropriate) because of ANY ONE of the following: [X]a) Severe pain requiring acute inpatient management [ ]b) Identification of etiology/finding that requires inpatient care (eg, aortic dissection, free air) [ ]c) Absent bowel sounds with complete ileus(6) [ ]d) Suspected toxic megacolon [ ]e) Severe electrolyte abnormalities requiring inpatient care [ ]f) High fever or infection requiring inpatient admission as indicated by ANY ONE of following(7)(8): [ ] i) Appropriate outpatient or observational care antimicrobial treatment unavailable, not effective, or not feasible [ ] ii) Documented bacteremia [ ] iii) Temperature > 104.9 degrees F (oral) [ ] iv) T >103.1 F (oral) or < 96.8 F(rectal) that does not respond to all emergency treatment measures [ ]g) Signs of intestinal obstruction [B] [ ]h) Hemodynamic instability [ ]i) IV fluid to replace significant ongoing losses (greater than 3 L/m2 per day) (12)(13) [ ]j) Percutaneous or open drainage (eg, abscess, biliary tract ) procedures [ ]k) Parenteral nutrition regimen that must be implemented on inpatient basis [ ]l) Other condition,treatment or monitoring requiring inpatient admission. [ ]II. Peritoneal signs present [ ]III. Surgery needed that cannot be performed on an ambulatory basis. [ ]IV. Evaluation requires patient to not eat or drink for extended period ( eg, more than 24 hours). [ ]V. Contraindications and/or Inappropriate clinical situations for Observational Care in patients with abdominal pain, when ANY ONE of the following is required: [ ]a) Thorough evaluation is required to prevent catastrophic events due to delays in diagnosing (e.g.Mesenteric ischemia) 1,3 [ ]b) Patient with severe pathology or with chronic symptoms unlikely to improve in the ED stay (3) [ ]. General contraindications and/or Inappropriate clinical situations for Observational Care in patients with abdominal pain, when ANY ONE of the following is required: [ ]a) Prediction of prolongation of LOS based on ANY ONE of the following may be considered as a contraindication for observational care 2, 3, 4, 5, 6, 7, 8, 9, 10, 11 [ ]i) Age > 65 yrs. [ ]ii) Patient arriving by ambulance [ ]iii) Patient with high acuity [ ]iv) Patient requiring vital sign monitoring [ ]v) Patient on IV medication [ ]b) Systolic blood pressures 180mmHg 3,12 [ ]c) Patient with altered mental status including delirium and other alteration of consciousness, (3) [ ]d) Patient whose discharge disposition will be to a halfway home or rehabilitation home should not be managed in Emergency Department Observation Unit. CMS rule requires 3 days hospital stay before such placement.3,13 [ ]e) Patient with failure to thrive due to broad array of etiologies 3,16,17 [ ]f) Inability to ambulate 3,14 Extended stay beyond goal length of stay may be needed for(2)(3): [ ]a) Persistent abdominal pain with suspected intra-abdominal process [ ]b) Diagnosed condition requiring continued stay (e.g., pancreatitis, complicated diverticulitis) [ ]c) Surgery (e.g., colectomy) The original [employer] content created by [employer] has been revised. The portions of the content which have been revised are identified through the use of italic text or in bold, and [facility] has neither reviewed nor approved the modified material.All other unmodified content is copyright [employer]. Please see references footnoted in the original [facility] edition 2016 LUANA WHEELER Apr 19, 2016 07:31
[2016-04-19 07:35] VITALS: BP 152/108
[2016-04-19] MEDS: METOPROLOL SUCC 24HR ER 100 MG TAB.ER.24H. PO SCH (08:28)
[2016-04-19 08:29] VITALS: BP 152/108
[2016-04-19] MEDS: AMLODIPINE BESYLATE 10 MG TABLET PO SCH (08:29)
[2016-04-19] MEDS: PANTOPRAZOLE 40 MG TABLET. PO SCH (08:30)
[2016-04-19] MEDS: ALPRAZOLAM 1 MG TABLET PO PRN (08:40)
--- NOTE | 2016-04-19 08:50 | PDOC ---
Subjective: Subjective: Per pt - abd pain much better, says she had watery stools yesterday. Objective: Objective: Per RN - stools yesterday. Vital Signs: Vital Signs Date Time Temp Pulse Resp B/P Pulse Ox O2 Delivery O2 Flow Rate FiO2 04/19/16 08:31 20 98 Room Air 04/19/16 08:29 99 152/108 04/19/16 07:35 99.1 99.1 04/18/16 18:28 2.0 Imaging: CT A/P 04/17/16 1. Small amount of abdominal ascites with extensive mesenteric stranding and body wall edema, new compared to the prior study. 2. Stable hepatosplenomegaly. 3. Small right pleural effusion, new compared to the prior study. 4. Bilateral renal atrophy. 5. Large amount of colonic stool. Correlate for constipation. 6. Fracture dislocation of the right hip and deformity of the right femoral head , new compared to the prior study. There is no associated moderate right hip hemarthrosis. 7. Mild L2 compression fracture, new compared to the prior study. This may be subacute. 8. Chronic appearing sacral insufficiency fractures and pubic rami fractures superimposed on osseous changes due to renal osteodystrophy, similar compared to the prior study. 9. Grade 1 anterolisthesis of L5 on S1 with pars defects. PE: GEN: NAD LUNGS: CTAB anteriorly HEART: RRR ABD: NABS, S/ND/NT NEURO/PSYCH: A & O 3 A/P: LUQ pain - improved -on empiric PPI, also took Linzess and Relistor Constipation -note Miralax changed to PRN (after multiple loose stools, soiling) ESRD on HD H/o hip surgery, infection, sacral/vertebral fractures -on IV atbx -- Pain improved w/ passage of stools yesterday. Continue same per GI. SHANDA RENE Apr 19, 2016 08:50
[2016-04-19] MEDS: HYDRALAZINE 50 MG TABLET PO SCH (09:00)
--- NOTE | 2016-04-19 09:34 | PDOC ---
Provider Note Provider Note pt leaving AMA. signed papers. DId not get to see pt today, NO dc summ needed ROGERIO BERGMAN MD Apr 19, 2016 09:34
[2016-04-20] MEDS ORDERED: VANCOMYCIN 500 MG in IV NORMAL SALINE 100ML 100 ML IV SCH (16:00)
== END 2016-04-19 10:00 | disposition left against medical advice (07) | DRG 542 ==
LOC: ER 12:31 → 2 NORTH 14:30
PROVIDERS: ADMIT Internal Medicine; ATTEND Internal Medicine
DX: M84.48XA Pathological fracture, other site, initial encounter for fracture (principal); N18.6 End stage renal disease; R18.8 Other ascites; I12.0 Hypertensive chronic kidney disease with stage 5 chronic kidney disease or end stage renal disease; Z88.8 Allergy status to other drugs, medicaments and biological substances; S72.051A Unspecified fracture of head of right femur, initial encounter for closed fracture; R10.9 Unspecified abdominal pain; R16.2 Hepatomegaly with splenomegaly, not elsewhere classified; K59.00 Constipation, unspecified; D64.9 Anemia, unspecified; E87.5 Hyperkalemia; F12.90 Cannabis use, unspecified, uncomplicated; K29.70 Gastritis, unspecified, without bleeding; M53.3 Sacrococcygeal disorders, not elsewhere classified; N15.9 Renal tubulo-interstitial disease, unspecified; F41.9 Anxiety disorder, unspecified; E21.3 Hyperparathyroidism, unspecified; Z79.899 Other long term (current) drug therapy; Z82.49 Family history of ischemic heart disease and other diseases of the circulatory system; Z90.49 Acquired absence of other specified parts of digestive tract; Z98.890 Other specified postprocedural states; Z99.2 Dependence on renal dialysis; Z88.2 Allergy status to sulfonamides
CPT/HCPCS: 36415; 73501; 74176; 80048; 80053; 80202; 83690; 85007; 85027; 93005; 94250; 96374; 96375; 96376; J0360; J1200; J2060; J2212; J2405; J3010; J3370; J7030; J7050; 99285-25

== ENCOUNTER 2016-05-10 10:55 | Inpatient (IN) | payer MEDICARE ==
[~2016-05-10] VITALS: Ht 157.5 cm; Wt 45.1 kg
--- NOTE | 2016-05-10 12:41 | ED.ADGEN ---
Past Medical History Past Medical History: Hypertension, Renal Failure, Seizure Additional Past Medical Histor: HEMODIAYLSIS,elevated phosporous Past Surgical History: , Other Additional Past Surgical Histo: AV shunt in left arm, dialysis cath, L. WRIST, left femur, PICC Alcohol Use: None Drug Use: Marijuana Adult General Chief Complaint Chief Complaint: ABDOMINAL PAIN HPI HPI Patient is a 26 year old woman, history of end-stage renal disease on hemodialysis, who had incomplete session on Tuesday due to abdominal pain, who presents emergency department complaining of abdominal pain, nausea, vomiting, diarrhea, also headache and blurred vision. Patient states symptoms began about 3 days ago, states that she had similar to previously when she had pancreatitis. Headache and blurred vision is new, patient noted be hypertensive , 229/151, heart rate in the 120s, she states she ran out of her Xanax on Tuesday as she is currently transitioning to a new provider. Denies any new injuries, any fevers, chills, urinary complaints. Review of Systems Review of Systems Constitutional: Denies fever or chills. [] Eyes: Denies change in visual acuity. [] HENT: Denies nasal congestion or sore throat. [] Respiratory: Denies cough or shortness of breath. [] Cardiovascular: Denies chest pain or edema. [] GI: Cramping abdominal pain, nausea, vomiting, diarrhea, no blood in stool or emesis. : Denies dysuria. [] Musculoskeletal: Denies back pain or joint pain. [] Integument: Denies rash. [] Neurologic: Denies focal weakness or sensory changes. Headache, blurred vision. Endocrine: Denies polyuria or polydipsia. [] Lymphatic: Denies swollen glands. [] Psychiatric: Denies depression or anxiety. [] Current Medications Current Medications Current Medications Medications (Trade) Dose Ordered Sig/Rolly Start Time Stop Time Status Last Admin Dose Admin Fentanyl Citrate (Fentanyl 2ml Vial) 50 mcg PRN Q15MIN PRN 05/10/16 12:30 05/11/16 12:29 05/10/16 13:38 50 MCG Lorazepam (Ativan) 1 mg 1X ONCE 05/10/16 12:45 05/10/16 12:46 DC 05/10/16 12:58 1 MG Nitroglycerin (Nitrostat) 0.4 mg PRN Q5MIN PRN 05/10/16 12:30 05/10/16 12:55 0.4 MG Allergies Allergies Allergies Coded Allergies Type Severity Reaction Last Updated Verified Sulfa (Sulfonamide Antibiotics) Allergy Intermediate 07/07/14 Yes haloperidol Allergy Intermediate Anxiety 04/18/16 Yes Physical Exam Physical Exam Constitutional: Well developed, well nourished, mild distress due to pain, chronically ill in appearance. [Nasal cannula in place.] HENT: Normocephalic, atraumatic, bilateral external ears normal, oropharynx moist, no oral exudates, nose normal. [] Eyes: PERRLA, EOMI, conjunctiva normal, no discharge. [] Neck: Normal range of motion, no tenderness, supple, no stridor. [] Cardiovascular:Heart rate regular rhythm, no murmur, S1, S2, tachycardic. No rubs or gallops. Soft heart sounds. [] Lungs & Thorax: Diminished breath sounds at bases bilaterally, mild rales. No rhonchi. No chest wall crepitus or tenderness. [] Abdomen: Bowel sounds present in all 4 quadrants, soft, mild tenderness palpation throughout the abdomen, no rebound, rigidity, no guarding, no masses, no pulsatile masses. [] Skin: Warm, dry, no erythema, no rash. [] Back: No tenderness, no CVA tenderness. [] Extremities: No tenderness, no cyanosis, no clubbing, ROM intact, no edema. Negative Homans sign. [] Neurologic: Alert and oriented X 3, normal motor function, normal sensory function, no focal deficits noted. [] Psychologic: Affect normal, judgement normal, mood normal. [] Current Patient Data Vital Signs Vital Signs Date Time Temp Pulse Resp B/P Pulse Ox O2 Delivery O2 Flow Rate FiO2 05/10/16 12:55 118 229/153 05/10/16 12:42 22 92 Nasal Cannula 2.0 05/10/16 11:00 98.5 98.5 Lab Values Laboratory Tests Test 05/10/16 12:00 White Blood Count 8.5x10^3/uL (4.0-11.0) Red Blood Count 2.34x10^6/uL (3.50-5.40) L Hemoglobin 7.6g/dL (12.0-15.5) L Hematocrit 23.3% (36.0-47.0) L Mean Corpuscular Volume 100fL (79-100) Mean Corpuscular Hemoglobin 33pg (25-35) Mean Corpuscular Hemoglobin Concent 33g/dL (31-37) Red Cell Distribution Width 20.4% (11.5-14.5) H Platelet Count 242x10^3/uL (140-400) Neutrophils (%) (Auto) 82% (31-73) H Lymphocytes (%) (Auto) 12% (24-48) L Monocytes (%) (Auto) 4% (0-9) Eosinophils (%) (Auto) 2% (0-3) Basophils (%) (Auto) 1% (0-3) Neutrophils # (Auto) 7.0x10^3uL (1.8-7.7) Lymphocytes # (Auto) 1.0x10^3/uL (1.0-4.8) Monocytes # (Auto) 0.3x10^3/uL (0.0-1.1) Eosinophils # (Auto) 0.2x10^3/uL (0.0-0.7) Basophils # (Auto) 0.0x10^3/uL (0.0-0.2) Platelet Estimate Pending Sodium Level 143mmol/L (136-145) Potassium Level 6.1mmol/L (3.5-5.1) *H Chloride Level 104mmol/L (98-107) Carbon Dioxide Level 24mmol/L (21-32) Anion Gap 15 (6-14) H Blood Urea Nitrogen 73mg/dL (7-20) H Creatinine 7.8mg/dL (0.6-1.0) H Estimated GFR (Cockcroft-Gault) 6.3 BUN/Creatinine Ratio 9 (6-20) Glucose Level 99mg/dL (70-99) Calcium Level 9.2mg/dL (8.5-10.1) Phosphorus Level 7.8mg/dL (2.6-4.7) H Magnesium Level 2.5mg/dL (1.8-2.4) H Total Bilirubin 0.5mg/dL (0.2-1.0) Aspartate Amino Transferase (AST) 11U/L (15-37) L Alanine Aminotransferase (ALT) 10U/L (14-59) L Alkaline Phosphatase 618U/L (46-116) H Total Protein 6.9g/dL (6.4-8.2) Albumin 3.3g/dL (3.4-5.0) L Albumin/Globulin Ratio 0.9 (1.0-1.7) L Lipase 190U/L (73-393) Serum Test, Qualitative Negative (NEG) Laboratory Tests 05/10/16 12:00 Laboratory Tests 05/10/16 12:00 EKG EKG EC: Sinus tachycardia, heart rate 100, upright axis, QTC of 451, NV 100, QRS of 74, no ST elevations or depressions, abnormal ECG, does not meet STEMI criteria. As interpreted by me. Radiology/Procedures Radiology/Procedures [] [facility] [address] [place] [address] IMAGING REPORT Signed PATIENT: ANTHONY ACCOUNT: [id number] : 1990 LOCATION: ER AGE: 26 SEX: F EXAM STATUS: REG ER ORD. PHYSICIAN: NAILA SEWELL DO REASON: abd pain PROCEDURE: ACUTE ABDOMEN SERIES EXAM: Two view abdomen with one view chest HISTORY: Renal failure, abdominal pain. COMPARISON: 03-05. FINDINGS: A frontal view of the chest and supine/upright views of the abdomen are obtained. There are bilateral interstitial and airspace opacities consistent with multifocal pneumonia or mild/moderate pulmonary edema. These are asymmetrically greater on the right than left. There is a trace right pleural effusion. There is no pneumothorax. The heart is moderately enlarged. There is a stent in the left brachiocephalic vein. There is no pneumoperitoneum. There are no distended small bowel loops or significant air-fluid levels. There is gas distally. Centralization of bowel loops suggests ascites. There are diffuse atherosclerotic calcifications. There is a chronic right femoral neck fracture or disarticulation, with superolateral subluxation of the distal femoral fragment. There is a large soft tissue calcification inferolateral to the greater trochanter measuring 4 x 2 cm. The pelvis is small, with widening of the pubic symphysis. Sacroiliac joints are widened chronically. IMPRESSION: 1. Mild/moderate asymmetric pulmonary edema versus multifocal pneumonia. 2. Moderate cardiomegaly. 3. Findings suggesting ascites. No evidence of obstruction. DICTATED and SIGNED BY: DANIEL BUCIO MD DATE: 05/10/16 1335 CC: NAILA SEWELL DO; NO PCP ~ Impressions: [facility] [address] [place] [address] IMAGING REPORT Signed PATIENT: ANTHONY ACCOUNT: [id number] : 1990 LOCATION: ER AGE: 26 SEX: F EXAM STATUS: REG ER ORD. PHYSICIAN: NAILA SEWELL DO REASON: MAC/HTN/Missed HD PROCEDURE: HEAD WO CONTRAST EXAM: CT head without contrast. HISTORY: Headache, hypertension. TECHNIQUE: Computed tomography of the head was performed without intravenous contrast. COMPARISON: 03-05. FINDINGS: There is no intracranial hemorrhage. Hypoattenuation within the periventricular white matter indicates mild chronic microangiopathic change, advanced for patient age. Prominence of the lateral ventricles and hemispheric sulci indicate mild atrophy, also advanced for age. The visualized paranasal sinuses appear clear. The orbits are unremarkable. The temporal bones are unremarkable. The appearance of the calvarium is consistent with secondary hyperparathyroidism the setting of renal failure. IMPRESSION: 1. No acute intracranial findings. 2. Mild atrophy and chronic small vessel ischemic white matter change are advanced for patient age. 3. Calvarial changes suggesting secondary hyperparathyroidism. *One or more of the following individualized dose reduction techniques were utilized for this examination: 1. Automated exposure control. 2. Adjustment of the mA and/or kV according to patient size. 3. Use of iterative reconstruction technique. DICTATED and SIGNED BY: DANIEL BUCIO MD DATE: 05/10/16 1322 CC: NAILA SEWELL DO; NO PCP ~ Course & Med Decision Making Course & Med Decision Making Pertinent Labs and Imaging studies reviewed. (See chart for details) Patient with hypoxia in the emergency department, elevated blood pressure, and rales throughout and examination, and did find chest x-ray consistent with extensive pulmonary edema and cardiomegaly, CONSISTENT with missed dialysis and fluid overload, patient with a potassium of 6.1. ECG does not have concerning findings. Due to the patient's high blood pressures were did not respond medication, and fluctuating oxygen saturation, requiring increasing amounts of O2, dialysis was arranged from the emergency department after CT of head was unremarkable and chest x-ray and abdominal films do not reveal acute concerning findings, I did discuss this with Dr. Kenney of [facility], after dialysis was arranged with Dr. Mcintosh of nephrology, patient to receive CT of abdomen and pelvis, and proceed to emergent dialysis. Patient is agreeable this plan. Is resting more comfortably after receiving pain medication and is a limited medication. She remains tachycardic in the 120s, oxygen saturation in the mid upper 90s on 4 L nasal cannula, blood pressures remain elevated this time despite treatment with nitroglycerin, at time of transfer to the floor for emergent dialysis. Dragon Disclaimer Dragon Disclaimer This electronic medical record was generated, in whole or in part, using a voice recognition dictation system. Departure Impression: Primary Impression: ESRD (end stage renal disease) Additional Impressions: Respiratory failure Abdominal pain Disposition: ADMITTED INPATIENT Admitting Physician: Johanna Kenney Condition: IMPROVED Problem Qualifiers Additional Impressions: Respiratory failure Chronicity: acute Respiratory failure complication: hypoxia Qualified Code : J96.01 - Acute respiratory failure with hypoxia Abdominal pain Abdominal location: generalized Qualified Code: R10.84 - Generalized abdominal pain NAILA SEWELL DO May 10, 2016 12:41
[2016-05-10 12:42] LABS: BASO % 1 % (0-3); EOS % 2 % (0-3); HEMATOCRIT 23.3 % (36.0-47.0); HEMOGLOBIN 7.6 g/dL (12.0-15.5); LYMPH % 12 % (24-48); MEAN CORPUSCULAR HEMOGLOBIN 33 pg (25-35); MEAN CORPUSCULAR HGB CONC 33 g/dL (31-37); MEAN CORPUSCULAR VOLUME 100 fL (79-100); MONO % 4 % (0-9); NEUT % 82 % (31-73); PLATELET COUNT 242 x10^3/uL (140-400); RED BLOOD COUNT 2.34 x10^6/uL (3.50-5.40); RED CELL DISTRIBUTION WIDTH 20.4 % (11.5-14.5); WHITE BLOOD COUNT 8.5 x10^3/uL (4.0-11.0)
[2016-05-10] MEDS: FENTANYL PF 100 MCG/2 ML VIAL. IV PRN ×2 (12:42→13:38)
[2016-05-10] MEDS: NITROGLYCERIN SUBLINGUAL 0.4 MG BOTTLE OF 25. SL PRN ×2 (12:42→12:55)
[2016-05-10] MEDS ORDERED: LORAZEPAM 2 MG/ML VIAL IV ONE (12:45)
[2016-05-10 12:53] LABS: ALBUMIN 3.3 g/dL (3.4-5.0); ALBUMIN/GLOBULIN RATIO 0.9 (1.0-1.7); CALCIUM 9.2 mg/dL (8.5-10.1); CREATININE 7.8 mg/dL (0.6-1.0); GFR 6.3; TOTAL BILIRUBIN 0.5 mg/dL (0.2-1.0); TOTAL PROTEIN 6.9 g/dL (6.4-8.2)
[2016-05-10 12:54] LABS: NEG OBC SER NEG; POS OBC SER POS
[2016-05-10 12:57] LABS: MAGNESIUM 2.5 mg/dL (1.8-2.4); PHOSPHORUS 7.8 mg/dL (2.6-4.7)
[2016-05-10 12:58] LABS: POTASSIUM 6.1 mmol/L (3.5-5.1)
--- NOTE | 2016-05-10 13:27 | RAD ---
EXAM: CT head without contrast. HISTORY: Headache, hypertension. TECHNIQUE: Computed tomography of the head was performed without intravenous contrast. COMPARISON: 03-05. FINDINGS: There is no intracranial hemorrhage. Hypoattenuation within the periventricular white matter indicates mild chronic microangiopathic change, advanced for patient age. Prominence of the lateral ventricles and hemispheric sulci indicate mild atrophy, also advanced for age. The visualized paranasal sinuses appear clear. The orbits are unremarkable. The temporal bones are unremarkable. The appearance of the calvarium is consistent with secondary hyperparathyroidism the setting of renal failure. IMPRESSION: 1. No acute intracranial findings. 2. Mild atrophy and chronic small vessel ischemic white matter change are advanced for patient age. 3. Calvarial changes suggesting secondary hyperparathyroidism. *One or more of the following individualized dose reduction techniques were utilized for this examination: 1. Automated exposure control. 2. Adjustment of the mA and/or kV according to patient size. 3. Use of iterative reconstruction technique.
--- NOTE | 2016-05-10 13:41 | RAD ---
EXAM: Two view abdomen with one view chest HISTORY: Renal failure, abdominal pain. COMPARISON: 1216. FINDINGS: A frontal view of the chest and supine/upright views of the abdomen are obtained. There are bilateral interstitial and airspace opacities consistent with multifocal pneumonia or mild/moderate pulmonary edema. These are asymmetrically greater on the right than left. There is a trace right pleural effusion. There is no pneumothorax. The heart is moderately enlarged. There is a stent in the left brachiocephalic vein. There is no pneumoperitoneum. There are no distended small bowel loops or significant air-fluid levels. There is gas distally. Centralization of bowel loops suggests ascites. There are diffuse atherosclerotic calcifications. There is a chronic right femoral neck fracture or disarticulation, with superolateral subluxation of the distal femoral fragment. There is a large soft tissue calcification inferolateral to the greater trochanter measuring 4 x 2 cm. The pelvis is small, with widening of the pubic symphysis. Sacroiliac joints are widened chronically. IMPRESSION: 1. Mild/moderate asymmetric pulmonary edema versus multifocal pneumonia. 2. Moderate cardiomegaly. 3. Findings suggesting ascites. No evidence of obstruction.
--- NOTE | 2016-05-10 13:56 | PDOC2 ---
CONSULT Date of Consult Date of Consult DATE: 05/10/16 TIME: 13:53 Reason for Consult Reason for Consult: ESRD and ^K Referring Physician Referring Physician: Dr Kenney/ Dr Story Identification/Chief Complaint Chief Complaint not feeling good Problems: Source Source: Chart review, Patient History of Present Illness Reason for Visit: as dictated Past Medical History Cardiovascular: HTN Heme/Onc: Anemia NOS Psych: Anxiety Musculoskeletal: Weakness Renal/: Chronic renal failure, UTI, Other Endocrine: Hyperparathyroidism Past Surgical History Past Surgical History: Other (Dialysyis Access surgeries) Family History Family History: Hypertension Social History ALCOHOL: none Drugs: None Lives: with Family Current Medications Current Medications Current Medications Fentanyl Citrate (Fentanyl 2ml Vial) 50 mcg PRN Q15MIN PRN IV PAIN GREATER THAN 3/10 Last administered on 05/10/16 13:38; Start 05/10/16 at 12:30; Stop at 12:29 Nitroglycerin (Nitrostat) 0.4 mg PRN Q5MIN PRN SL CHEST PAIN Last administered on 05/10/16 12:55; Start 05/10/16 at 12:30 Lorazepam (Ativan) 1 mg 1X ONCE IV Last administered on 05/10/16 12:58; Start 05/10/16 at 12:45; Stop 05/10/16 at 12:46; Status DC Active Scripts Active Zofran Odt (Ondansetron) 4 Mg Tab.rapdis 1 Tab SL Q8HRS PRN Reported Percocet 7.5-325 Mg Tablet (Oxycodone/Acetaminophen) 1 Each Tablet 1 Tab PO PRN Q8HRS PRN Xanax (Alprazolam) 0.25 Mg Tablet 2 Mg PO TID PRN Metoprolol Succinate ( Xl ) (Metoprolol Succinate) 200 Mg Tab.er.24h 1 Tab PO DAILY Hydralazine Hcl 50 Mg Tablet 1 Tab PO TID Amlodipine Besylate 10 Mg Tablet 1 Tab PO DAILY Allergies Allergies: Coded Allergies: Sulfa (Sulfonamide Antibiotics) (Verified Allergy, Intermediate, 07/07/14) haloperidol (Verified Allergy, Intermediate, Anxiety, 04/18/16) ROS Review of System GEN: no Fevers no Chills EYES: no new Visual Complaints ENT: no EN Drainage no Hearing deficiets CVS: no Orthopnea no CP RESP: + SOB + BARAJAS GI: + Nausea + Vomiting + Diarrhea : no Dysuria no Urgency HEME: no easy bruising no Palp Ly Nodes NEURO no Focal Weakness no Sz PSYCH: no Suicidal Ideation ? Depression SKIN: no Rashes ENDO: no Polyuria or Polydipsia no Hot/Cold Intolerance MU SK: no Arthraigia no Myalgia Physical Exam Physical Exam General Appearance: Awake Alert Oriented x 3 In no Distress Eyes: VIsion Unchanged Conjunctiva Normal EN: No EN Drainage Mucous Memb. moist Neck: no JVD min JVP Supple no Thyromegaly CVS: S1 S2 + Murmur No Gallop No Rub no Edema Resp: scarlett bsal Rales occ Rhonchi no Acc. Muscle use GI: BAS +ve NO Bruit Non Tender Non Distended : no CVA tenderness; no Suprapubic Tenderness SKIN: no Rashes Breast Exam deferred Mu.Sk: Adequate ROM no Muscle Atrophy Heme: Unable to palpate Obvious LAD no palp Splenomegaly NEURO: Good Strength and Tone Cranial Nerves II - XII grossly intact Psych: ? Depressed no Active hallucination Vital Signs Vital Signs Date Time Temp Pulse Resp B/P Pulse Ox O2 Delivery O2 Flow Rate FiO2 05/10/16 13:38 24 100 NonRebreather Mask 05/10/16 12:55 118 229/153 05/10/16 12:42 2.0 05/10/16 11:00 98.5 98.5 Assessment & Plan ESRD. Dialysis as below F 180 NR 2.5 (per pt demand). Hrs 2 K 2.5 Ca 140 Na 35 HC03 Qb 350 + Qd 500+ Heparin 0 Units Uf to dry weight as tolerated May give 25-50 gms of 25% Albumin if needed to maintain Hemodynamic stability Treatment plan reviewed and discussed with insolvency consultant ^K - anticipate correction with HD SOB and ? Hypervolemia - Uf to Dry weight Anemia: Epogen as ordered Transfuse with next HD as needed. HTN: Current BP meds reviewed. See orders for changes. KT -Bone & Mineral: known non-compliance with binders. watch trend on current regimen Discussed Plan of Care and prognosis etc. at length with pt who is more concenred about getting/ demanding bendaryl for itching then answering Qs Labs Labs Laboratory Tests Test 05/10/16 12:00 White Blood Count 8.5x10^3/uL (4.0-11.0) Red Blood Count 2.34x10^6/uL (3.50-5.40) Hemoglobin 7.6g/dL (12.0-15.5) Hematocrit 23.3% (36.0-47.0) Mean Corpuscular Volume 100fL (79-100) Mean Corpuscular Hemoglobin 33pg (25-35) Mean Corpuscular Hemoglobin Concent 33g/dL (31-37) Red Cell Distribution Width 20.4% (11.5-14.5) Platelet Count 242x10^3/uL (140-400) Neutrophils (%) (Auto) 82% (31-73) Lymphocytes (%) (Auto) 12% (24-48) Monocytes (%) (Auto) 4% (0-9) Eosinophils (%) (Auto) 2% (0-3) Basophils (%) (Auto) 1% (0-3) Neutrophils # (Auto) 7.0x10^3uL (1.8-7.7) Lymphocytes # (Auto) 1.0x10^3/uL (1.0-4.8) Monocytes # (Auto) 0.3x10^3/uL (0.0-1.1) Eosinophils # (Auto) 0.2x10^3/uL (0.0-0.7) Basophils # (Auto) 0.0x10^3/uL (0.0-0.2) Sodium Level 143mmol/L (136-145) Potassium Level 6.1mmol/L (3.5-5.1) Chloride Level 104mmol/L (98-107) Carbon Dioxide Level 24mmol/L (21-32) Anion Gap 15 (6-14) Blood Urea Nitrogen 73mg/dL (7-20) Creatinine 7.8mg/dL (0.6-1.0) Estimated GFR (Cockcroft-Gault) 6.3 BUN/Creatinine Ratio 9 (6-20) Glucose Level 99mg/dL (70-99) Calcium Level 9.2mg/dL (8.5-10.1) Phosphorus Level 7.8mg/dL (2.6-4.7) Magnesium Level 2.5mg/dL (1.8-2.4) Total Bilirubin 0.5mg/dL (0.2-1.0) Aspartate Amino Transf (AST/SGOT) 11U/L (15-37) Alanine Aminotransferase (ALT/SGPT) 10U/L (14-59) Alkaline Phosphatase 618U/L (46-116) Total Protein 6.9g/dL (6.4-8.2) Albumin 3.3g/dL (3.4-5.0) Albumin/Globulin Ratio 0.9 (1.0-1.7) Lipase 190U/L (73-393) Serum Test, Qualitative Negative (NEG) Laboratory Tests Test 05/10/16 12:00 White Blood Count 8.5x10^3/uL (4.0-11.0) Red Blood Count 2.34x10^6/uL (3.50-5.40) Hemoglobin 7.6g/dL (12.0-15.5) Hematocrit 23.3% (36.0-47.0) Mean Corpuscular Volume 100fL (79-100) Mean Corpuscular Hemoglobin 33pg (25-35) Mean Corpuscular Hemoglobin Concent 33g/dL (31-37) Red Cell Distribution Width 20.4% (11.5-14.5) Platelet Count 242x10^3/uL (140-400) Neutrophils (%) (Auto) 82% (31-73) Lymphocytes (%) (Auto) 12% (24-48) Monocytes (%) (Auto) 4% (0-9) Eosinophils (%) (Auto) 2% (0-3) Basophils (%) (Auto) 1% (0-3) Neutrophils # (Auto) 7.0x10^3uL (1.8-7.7) Lymphocytes # (Auto) 1.0x10^3/uL (1.0-4.8) Monocytes # (Auto) 0.3x10^3/uL (0.0-1.1) Eosinophils # (Auto) 0.2x10^3/uL (0.0-0.7) Basophils # (Auto) 0.0x10^3/uL (0.0-0.2) Sodium Level 143mmol/L (136-145) Potassium Level 6.1mmol/L (3.5-5.1) Chloride Level 104mmol/L (98-107) Carbon Dioxide Level 24mmol/L (21-32) Anion Gap 15 (6-14) Blood Urea Nitrogen 73mg/dL (7-20) Creatinine 7.8mg/dL (0.6-1.0) Estimated GFR (Cockcroft-Gault) 6.3 BUN/Creatinine Ratio 9 (6-20) Glucose Level 99mg/dL (70-99) Calcium Level 9.2mg/dL (8.5-10.1) Phosphorus Level 7.8mg/dL (2.6-4.7) Magnesium Level 2.5mg/dL (1.8-2.4) Total Bilirubin 0.5mg/dL (0.2-1.0) Aspartate Amino Transf (AST/SGOT) 11U/L (15-37) Alanine Aminotransferase (ALT/SGPT) 10U/L (14-59) Alkaline Phosphatase 618U/L (46-116) Total Protein 6.9g/dL (6.4-8.2) Albumin 3.3g/dL (3.4-5.0) Albumin/Globulin Ratio 0.9 (1.0-1.7) Lipase 190U/L (73-393) Serum Test, Qualitative Negative (NEG) Images Images 1. Anasarca. 2. Worsening pulmonary infiltrates suggesting pulmonary edema or pneumonia. 3. Increasing small right pleural effusion. 4. Small volume of ascites, unchanged since 04/17/2016. 5. Atrophic, calcified kidneys. 6. Chronic musculoskeletal abnormalities as described above. VALERY SOARES MD May 10, 2016 13:56
[2016-05-10] MEDS ORDERED: DILTIAZEM HCL 30 MG TABLET PO ONE (14:15)
--- NOTE | 2016-05-10 14:42 | RAD ---
CT of the abdomen and pelvis without contrast, 05/10/2016: History: Abdominal pain, nausea and vomiting, fall Noncontrast scans were obtained as requested. Comparison is made to a study from 04/17/2016. There is a small amount of right-sided pleural fluid which has increased slightly since the previous study. There are bibasilar interstitial and airspace opacities which have worsened. The heart is enlarged. There is generalized anasarca. The gallbladder is surgically absent. The unopacified liver is unremarkable. The pancreas cannot be clearly from unopacified bowel. The spleen is within normal limits in size. The kidneys are markedly atrophic and partially calcified. Vascular calcifications are present. There is a small volume of ascites in the abdomen and pelvis, similar to that seen on the previous study. The bowel loops are not dilated. No free air is evident in the abdomen or pelvis. The bones are generally sclerotic probably representing renal osteodystrophy. There is mild unchanged anterior wedging of the L2 vertebral body. There is a slight spondylolisthesis at L5-S1 with underlying bilateral spondylolysis. There is extensive arthritic change at both sacroiliac joints. Old bilateral pubic bone fractures are again noted. There is an old nonhealed fracture of the proximal right femur involving the femoral neck and head, with associated bony resorption and/or osteolysis. The proximal femur is displaced proximally relative to the acetabulum. IMPRESSION: 1. Anasarca. 2. Worsening pulmonary infiltrates suggesting pulmonary edema or pneumonia. 3. Increasing small right pleural effusion. 4. Small volume of ascites, unchanged since 04/17/2016. 5. Atrophic, calcified kidneys. 6. Chronic musculoskeletal abnormalities as described above. PQRS Compliance Statement: One or more of the following individualized dose reduction techniques were utilized for this examination: 1. Automated exposure control 2. Adjustment of the mA and/or kV according to patient size 3. Use of iterative reconstruction technique
--- NOTE | 2016-05-10 14:43 | EKG ---
[facility] [address] [place] [address] Test Date: 2016-05-10 Test Time: 12:45:11 Pat Name: JUNE ANTHONY Department: Room: 261 1 Gender: F [employer] Performer: : 1990 Requested By: NAILA SEWELL Order Number: [id number] Reading MD: Awilda Soto Measurements Intervals [place] Rate: 119 P: 90 [place]: 100 QRS: 53 QRSD: 74 T: 18 QT: 316 QTc: 451 Interpretive Statements SINUS TACHYCARDIA OTHERWISE NORMAL EKG Electronically Signed On 05-15-2016 19:25:33 SHIP PILOT by Awilda Soto
[2016-05-10] MEDS ORDERED: DIPHENHYDRAMINE 50 MG/ML VIAL IV PRN ×2 (14:45)
[2016-05-10] MEDS ORDERED: DIALYSIS PATIENT. MC PRN ×2 (14:45)
[2016-05-10] MEDS ORDERED: MAGNESIUM SULFATE 2GM 50 ML IV PRN (15:00)
[2016-05-10] MEDS: LABETALOL 20 MG/4 ML DISP.SYRIN. IVP PRN ×4 (15:23→22:48)
[2016-05-10 15:57] LABS: ANISOCYTOSIS MOD; PLT ESTIMATE ADEQUATE (ADEQUATE); POIKILOCYTOSIS SLIGHT; POLYCHROMASIA SLIGHT
--- NOTE | 2016-05-10 16:12 | PDOC1 ---
History and Physical Date of Admission Date of Admission DATE: 05/10/16 TIME: 16:11 Identification/Chief Complaint Chief Complaint short of breath Source Source: Chart review, Patient History of Present Illness History of Present Illness Ms. Wayne, pt seen in ER 1300, is a 26 year old woman, , on dialyzed for 50 min Tuesday - stopped due to abdominal pain, Admit today, acute dyspnea and abdominal pain. She feels her anxiety is up as she ran out of her Xanax. She has recent nausea, vomiting, diarrhea. That feels better after meds in ER. Newheadache today Noted hypertensive, 230/122, P 114 no travel, no sick contacts, Past Medical History Past Medical History history of end-stage renal disease on hemodialysis Cardiovascular: HTN Heme/Onc: Anemia NOS Psych: Anxiety Musculoskeletal: Weakness Rheumatologic: No pertinent hx Infectious disease: No pertinent hx ENT: No pertinent hx Renal/: Chronic renal failure, UTI, Other Endocrine: Hyperparathyroidism Para: 1 Past Surgical History Past Surgical History: , Other (Dialysyis Access surgeries) Family History Family History: No Significant, Hypertension Social History Smoke: No ALCOHOL: none Drugs: None Current Problem List Problem List Problems Medical Problems: (1) Abdominal pain Status: Acute (2) ESRD (end stage renal disease) Status: Acute (3) Respiratory failure Status: Acute Problems: Current Medications Current Medications Current Medications Fentanyl Citrate (Fentanyl 2ml Vial) 50 mcg PRN Q15MIN PRN IV PAIN GREATER THAN 3/10 Last administered on 05/10/16 13:38; Start 05/10/16 at 12:30; Stop at 12:29 Nitroglycerin (Nitrostat) 0.4 mg PRN Q5MIN PRN SL CHEST PAIN Last administered on 05/10/16 12:55; Start 05/10/16 at 12:30 Lorazepam (Ativan) 1 mg 1X ONCE IV Last administered on 05/10/16 12:58; Start 05/10/16 at 12:45; Stop 05/10/16 at 12:46; Status DC Diltiazem HCl (Cardizem) 30 mg 1X ONCE PO ; Start 05/10/16 at 14:15; Stop 05/10 at 14:22; Status DC Diphenhydramine HCl (Benadryl) 25 mg 1X PRN PRN IV ITCHING Last administered on 05/10/16 14:58; Start 05/10/16 at 14:45; Stop 05/11/16 at 14:44 Diphenhydramine HCl (Benadryl) 25 mg 1X PRN PRN IV ITCHING Last administered on 05/10/16 15:09; Start 05/10/16 at 14:45; Stop 05/11/16 at 14:44 Info (PHARMACY MONITORING -- do not chart) 1 each PRN DAILY PRN MC SEE COMMENTS ; Start 05/10/16 at 14:45; Status UNV Info 1 each 1 each PRN DAILY PRN MC SEE COMMENTS; Start 05/10/16 at 14:45 Magnesium Sulfate/ Dextrose (Magnesium Sulfate PREMIX 2GM) 50 ml @ 25 mls/hr PRN DAILY PRN IV for Mag < 1.7 on am labs; Start 05/10/16 at 15:00 Darbepoetin Jude (Aranesp) 60 mcg WEEKLYHS SQ ; Start 05/10/16 at 21:00 Labetalol HCl (Normodyne) 10 mg PRN Q1HR PRN IVP SBP > 180 Last administered on 05/10/16 15:23; Start 05/10/16 at 15:15; Stop 05/11/16 at 15:14 Active Scripts Active Zofran Odt (Ondansetron) 4 Mg Tab.rapdis 1 Tab SL Q8HRS PRN Reported Percocet 7.5-325 Mg Tablet (Oxycodone/Acetaminophen) 1 Each Tablet 1 Tab PO PRN Q8HRS PRN Xanax (Alprazolam) 0.25 Mg Tablet 2 Mg PO TID PRN Metoprolol Succinate ( Xl ) (Metoprolol Succinate) 200 Mg Tab.er.24h 1 Tab PO DAILY Hydralazine Hcl 50 Mg Tablet 1 Tab PO TID Amlodipine Besylate 10 Mg Tablet 1 Tab PO DAILY Allergies Allergies: Coded Allergies: Sulfa (Sulfonamide Antibiotics) (Verified Allergy, Intermediate, 07/07/14) haloperidol (Verified Allergy, Intermediate, Anxiety, 04/18/16) ROS General: YES: Chills, Fatigue, Malaise, No: Appetite, Night Sweats, Other PSYCHOLOGICAL ROS: YES: Anxiety, Irritablity, Memory difficulties, No: Behavioral Disorder, Concentration difficultie, Decreased libido, Depression, Disorientation, Hallucinations, Hostility, Mood Swings, Obsessive thoughts, Other, Physical abuse, Sexual abuse, Sleep disturbances, Suicidal ideation Eyes: Yes Blurry vision, No Decreased vision, No Double vision, No Dry eyes, No Excessive tearing, No Eye Pain, No Itchy Eyes, No Loss of vision, No Other, No Photophobia, No Scotomata, No Uses contacts, No Uses glasses HEENT: YES: Heacaches, No: Epistaxis, Hearing change, Nasal congestion, Nasal discharge, Oral lesions, Other, Sinus pain, Sneezing, Snoring, Sore Throat, Tinnitus, Vertigo, Visual Changes, Vocal changes Respiratory: YES: Cough, SOB with excertion, Shortness of breath, No: Hemoptysis, Orthopnea, Other, Pleuritic Pain, Sputum Changes, Stridor, Tachypnea, Wheezing Cardiovascular: No Chest Pain, No Edema, No Lt Headedness, No Orthopnea, No Other, No Palpitations, No Paroxysmal Noc. Dyspnea Gastrointestinal: Yes Abdominal Pain, Yes Diarrhea, Yes Nausea, Yes Vomiting, No Constipation, No Hematochezia, No Melena, No Other Genitourinary: No , No , No , No , No , No , No , No Discharge, No Dysuria, No Flank Pain, No Frequency, No Hematuria, No Incontinence, No Other, No Pain, No Retention, No Urgency Musculoskeletal: No Gait Disturbance, No Joint Pain, No Joint Stiffness, No Joint Swelling, No Muscle Pain, No Muscular Weakness, No Other, No Pain In:, No Swelling In: Neurological: No Behavorial Changes, No Bowel/Bladder ControlChng, No Confusion , No Dizziness, No Gait Disturbance, No Headaches, No Impaired Coord/balance, No Memory Loss, No Numbness/Tingling, No Other, No Seizures, No Speech Problems , No Tremors, No Visual Changes, No Weakness Skin: No Acne, No Dry Skin, No Eczema, No Hair Changes, No Lumps, No Mole Changes, No Mottling, No Nail Changes, No Other, No Pruritus, No Rash, No Skin Lesion Changes Physical Exam General: Alert, Cooperative, moderate distress, severe distress HEENT: PERRLA, EOMI Lungs: Clear to auscultation Heart: S1S2, no murmurs, other (tachy) Abdomen: Normal bowel sounds, Soft, No tenderness Rectal Exam: not examined Extremities: No clubbing, No cyanosis, Normal pulses, Other (Tr Le edema) Skin: No significant lesion Neuro: Normal speech, Normal tone, Sensation intact Psych/Mental Status: Mental status NL Vitals Vitals Vital Signs Date Time Temp Pulse Resp B/P Pulse Ox O2 Delivery O2 Flow Rate FiO2 05/10/16 15:23 96 200/132 05/10/16 13:45 30 98 NonRebreather Mask 05/10/16 13:15 2 05/10/16 11:00 98.5 98.5 Labs Labs Laboratory Tests Test 05/10/16 12:00 White Blood Count 8.5x10^3/uL (4.0-11.0) Red Blood Count 2.34x10^6/uL (3.50-5.40) Hemoglobin 7.6g/dL (12.0-15.5) Hematocrit 23.3% (36.0-47.0) Mean Corpuscular Volume 100fL (79-100) Mean Corpuscular Hemoglobin 33pg (25-35) Mean Corpuscular Hemoglobin Concent 33g/dL (31-37) Red Cell Distribution Width 20.4% (11.5-14.5) Platelet Count 242x10^3/uL (140-400) Neutrophils (%) (Auto) 82% (31-73) Lymphocytes (%) (Auto) 12% (24-48) Monocytes (%) (Auto) 4% (0-9) Eosinophils (%) (Auto) 2% (0-3) Basophils (%) (Auto) 1% (0-3) Neutrophils # (Auto) 7.0x10^3uL (1.8-7.7) Lymphocytes # (Auto) 1.0x10^3/uL (1.0-4.8) Monocytes # (Auto) 0.3x10^3/uL (0.0-1.1) Eosinophils # (Auto) 0.2x10^3/uL (0.0-0.7) Basophils # (Auto) 0.0x10^3/uL (0.0-0.2) Platelet Estimate Adequate (ADEQUATE) Polychromasia Slight Poikilocytosis Slight Anisocytosis Mod Macrocytosis Slight Sodium Level 143mmol/L (136-145) Potassium Level 6.1mmol/L (3.5-5.1) Chloride Level 104mmol/L (98-107) Carbon Dioxide Level 24mmol/L (21-32) Anion Gap 15 (6-14) Blood Urea Nitrogen 73mg/dL (7-20) Creatinine 7.8mg/dL (0.6-1.0) Estimated GFR (Cockcroft-Gault) 6.3 BUN/Creatinine Ratio 9 (6-20) Glucose Level 99mg/dL (70-99) Calcium Level 9.2mg/dL (8.5-10.1) Phosphorus Level 7.8mg/dL (2.6-4.7) Magnesium Level 2.5mg/dL (1.8-2.4) Total Bilirubin 0.5mg/dL (0.2-1.0) Aspartate Amino Transf (AST/SGOT) 11U/L (15-37) Alanine Aminotransferase (ALT/SGPT) 10U/L (14-59) Alkaline Phosphatase 618U/L (46-116) Total Protein 6.9g/dL (6.4-8.2) Albumin 3.3g/dL (3.4-5.0) Albumin/Globulin Ratio 0.9 (1.0-1.7) Lipase 190U/L (73-393) Serum Test, Qualitative Negative (NEG) Laboratory Tests Test 05/10/16 12:00 White Blood Count 8.5x10^3/uL (4.0-11.0) Red Blood Count 2.34x10^6/uL (3.50-5.40) Hemoglobin 7.6g/dL (12.0-15.5) Hematocrit 23.3% (36.0-47.0) Mean Corpuscular Volume 100fL (79-100) Mean Corpuscular Hemoglobin 33pg (25-35) Mean Corpuscular Hemoglobin Concent 33g/dL (31-37) Red Cell Distribution Width 20.4% (11.5-14.5) Platelet Count 242x10^3/uL (140-400) Neutrophils (%) (Auto) 82% (31-73) Lymphocytes (%) (Auto) 12% (24-48) Monocytes (%) (Auto) 4% (0-9) Eosinophils (%) (Auto) 2% (0-3) Basophils (%) (Auto) 1% (0-3) Neutrophils # (Auto) 7.0x10^3uL (1.8-7.7) Lymphocytes # (Auto) 1.0x10^3/uL (1.0-4.8) Monocytes # (Auto) 0.3x10^3/uL (0.0-1.1) Eosinophils # (Auto) 0.2x10^3/uL (0.0-0.7) Basophils # (Auto) 0.0x10^3/uL (0.0-0.2) Platelet Estimate Adequate (ADEQUATE) Polychromasia Slight Poikilocytosis Slight Anisocytosis Mod Macrocytosis Slight Sodium Level 143mmol/L (136-145) Potassium Level 6.1mmol/L (3.5-5.1) Chloride Level 104mmol/L (98-107) Carbon Dioxide Level 24mmol/L (21-32) Anion Gap 15 (6-14) Blood Urea Nitrogen 73mg/dL (7-20) Creatinine 7.8mg/dL (0.6-1.0) Estimated GFR (Cockcroft-Gault) 6.3 BUN/Creatinine Ratio 9 (6-20) Glucose Level 99mg/dL (70-99) Calcium Level 9.2mg/dL (8.5-10.1) Phosphorus Level 7.8mg/dL (2.6-4.7) Magnesium Level 2.5mg/dL (1.8-2.4) Total Bilirubin 0.5mg/dL (0.2-1.0) Aspartate Amino Transf (AST/SGOT) 11U/L (15-37) Alanine Aminotransferase (ALT/SGPT) 10U/L (14-59) Alkaline Phosphatase 618U/L (46-116) Total Protein 6.9g/dL (6.4-8.2) Albumin 3.3g/dL (3.4-5.0) Albumin/Globulin Ratio 0.9 (1.0-1.7) Lipase 190U/L (73-393) Serum Test, Qualitative Negative (NEG) VTE Prophylaxis Ordered VTE Prophylaxis Devices: Yes VTE Pharmacological Prophylaxi: Yes Assessment/Plan Assessment/Plan Acute hypoxic respiratory failure fluid overload, CHF due to ESRD, uremia, Met gap acidosis hyperkalemia, hyperphos anemia of CKD, macrocytic, check folic and b12 acute abd pain w/ nasuea, viral GI sx control consult GI Accelerated HTN, to HD, give Norvac Anxiety D/o, Home xanax and PRN DIONICIO Ramires MD May 10, 2016 16:12
--- NOTE | 2016-05-10 16:44 | ACF ---
Admission Forms Criteria RENAL FAILURE, CHRONIC Clinical Indications for Admission to Inpatient Care (Place 'X' for any and all applicable criteria): Admission is indicated for ANY ONE of the following (1)(2)(3)(4)(5): [X]I. Inpatient admission required rather than observation care (Use Renal Failure, Chronic: Observation Care Criteria as appropriate) because of ANY ONE of the following: [ ]a) Volume overload or uremic symptoms (eg, clinically significant pulmonary edema, hypertension, pericarditis, acidosis) too severe for, or not responsive (eg, for over 24 hours) to emergency department or observation care dialysis or treatment regimen (11) [X]b) Hemodynamic instability that is severe or persistent [X]c) Respiratory distress that is severe or persistent (11) [ ]d) Clinically significant electrolyte abnormality that requires inpatient care (eg,hyperkalemia with severe ECG findings)[B] [ ]e) Supplement O2 or respiratory therapy for over 24hrs that is performable only in acute inpatient setting [ ]f) Continuous IV infusion of anticoagulation, platelet inhibitor, vasoactive, or Antiarrhythmic medication (15), [ ]g) Pulmonary artery catheter monitoring [ ]h) Temporary pacemaker placement [ ]i) Emergent pericardiocentesis [ ]j) Other condition, treatment or monitoring requiring inpatient admission [ ]II. Unexplained syncope [A] [ ]III. Recurrent seizures [ ]IV. Severe infections not treatable in outpatient setting (eg, peritonitis)(9 ) [ ]V. Cardiac arrhythmias of immediate concern [ ]. Encephalopathy [ ]VII.Bleeding abnormalities (eg, platelet dysfunction) with active (eg, gastrointestinal) bleeding Extended stay beyond goal length of stay may be needed for (3)(4)(35)(36): [ ]a) Continuing uremic complications [ ]b) Comorbidities or complications The original [email or web address] content created by [email or web address] has been revised. The portions of the content which have been revised are identified through the use of italic text or in bold, and [facility] has neither reviewed nor approved the modified material. All other unmodified content is copyright [email or web address]. Please see references footnoted in the original [facility] edition 2016 Admission Criteria Met?: Yes ANASTACIO DELUNA May 10, 2016 16:44
[2016-05-10] MEDS ORDERED: OXYCODONE/APAP 7.5/325 TABLET. PO PRN (16:45)
[2016-05-10] MEDS ORDERED: ALPRAZOLAM 0.25 MG TABLET PO PRN (16:45)
[2016-05-10] MEDS ORDERED: ALPRAZOLAM 1 MG TABLET PO PRN (16:52)
[2016-05-10] MEDS: AMLODIPINE BESYLATE 10 MG TABLET PO SCH (17:00)
[2016-05-10] MEDS: METOPROLOL SUCC 24HR ER 100 MG TAB.ER.24H. PO SCH (17:00)
[2016-05-10 18:58] VITALS: BP 203/137
[2016-05-10] MEDS ORDERED: ENALAPRILAT 1.25 MG/ML VIAL. IV ONE (19:15)
[2016-05-10 19:25] VITALS: BP 204/127
[2016-05-10] MEDS: IPRATRPIUM/ALBUTEROL 0.5/2.5MG 3 ML NEBU. NEB SCH ×2 (19:57→22:00)
[2016-05-10] MEDS: HYDROMORPHONE 2 MG/ML VIAL. IVP PRN ×2 (20:12→23:31)
[2016-05-10] MEDS: HYDRALAZINE 50 MG TABLET PO SCH (20:19)
[2016-05-10] MEDS ORDERED: DARBEPOETIN ALFA 60 MCG/0.3 ML DISP.SYRIN. SQ SCH (21:00)
[2016-05-10] MEDS: LORAZEPAM 2 MG/ML VIAL IV PRN (21:40)
[2016-05-10] MEDS ORDERED: INFLUENZA VAX SCREEN BY RX. MC ONE (22:15)
[2016-05-10 22:40] VITALS: BP 199/119
[2016-05-10] MEDS: ONDANSETRON ODT 4 MG TAB.RAPDIS PO PRN (23:31)
--- NOTE | 2016-05-11 02:27 | CONS ---
DATE OF CONSULTATION: PRIMARY PHYSICIAN: Dr. Kenney. REASON FOR CONSULTATION: ESRD dialysis and hyperkalemia. CONSULTING PHYSICIAN: Dr. Camilo in the ER. HISTORY OF PRESENT ILLNESS: The patient is a 26-year-old female followed by Dr. Juarez. She usually goes to [facility] for her care. She is known to be severely noncompliant and usually shows up through the ER with hyperkalemia and fluid overload. She apparently had an incomplete dialysis session on Tuesday due to abdominal pain and presented to the ER today since she missed today's treatment. Also, she is short of breath. She developed nausea, vomiting, diarrhea and abdominal pain, mostly on her right side. She claims this is similar to her when she had pancreatitis. She is noted to have malignant hypertension with blood pressures running in the 220s/150s. She claims she was unable to keep her medications down due to her nausea and vomiting. She was also noted to have potassium of 6.[address] scan suggestive of significant hypervolemia and fluid overload. For this reason, she was admitted to the hospital. She was seen on dialysis. Emergent dialysis was arranged for the patient. VALERY SOARES MD DR: QUENTIN/phuc JOB#: [id number] / [id number]
[2016-05-11] MEDS: HYDROMORPHONE 2 MG/ML VIAL. IVP PRN ×5 (03:24→22:52)
[2016-05-11 03:30] VITALS: BP 162/113
[2016-05-11 07:09] VITALS: BP 173/117
[2016-05-11] MEDS: AMLODIPINE BESYLATE 10 MG TABLET PO SCH (08:39)
[2016-05-11] MEDS: METOPROLOL SUCC 24HR ER 100 MG TAB.ER.24H. PO SCH (08:39)
[2016-05-11] MEDS: ONDANSETRON ODT 4 MG TAB.RAPDIS PO PRN ×2 (08:40→17:55)
[2016-05-11] MEDS: HYDRALAZINE 50 MG TABLET PO SCH ×3 (08:45→22:51)
[2016-05-11] MEDS ORDERED: FLU VACC QUAD 2016-17 (36MOS+)/PF 0.5 ML SYRINGE. VAX IM ONE (09:00)
[2016-05-11 09:11] LABS: ALBUMIN 3.3 g/dL (3.4-5.0); CALCIUM 9.2 mg/dL (8.5-10.1); CREATININE 4.7 mg/dL (0.6-1.0); GFR 11.2; PHOSPHORUS 7.7 mg/dL (2.6-4.7); POTASSIUM 5.1 mmol/L (3.5-5.1)
[2016-05-11] MEDS: LORAZEPAM 2 MG/ML VIAL IV PRN ×4 (09:44→23:39)
[2016-05-11 10:01] VITALS: BP 167/111
--- NOTE | 2016-05-11 11:52 | PDOC2 ---
GI CONSULT Reason For Consult: N/v, diarrhea HPI: HPI: 26 y/o female previously evaluated by Dr. Bishop in 03/2016 for abdominal pain and constipation. She felt better w/ PPI, Linzess, Relistor, and Miralax; I believe she left AMA at that time. PMH as below significant for ESRD on HD. Reports recent pneumonia treated w/ antibiotics. She has had to change insurance providers, and as a result is w/o a PCP and has been out of Percocet and Xanax since 05/07. She feels this is the reason she has been having sweats/ chills, abdominal pain (worse during dialysis on 05/08 and 05/10, also worse w/ eating), vomiting x 2, ongoing nausea, and diarrhea x 5 (watery stools). Abdominal pain is diffuse and radiates to back, particularly to right flank. Usually she has constipation which has been most recently treated w/ something OTC. No reflux/heartburn. no hematemesis, hematochezia, melena. No previous EGD or colonoscopy. PMH: PMH: ESRD on HD, anxiety, HTN, anemia, depression/anxiety, pancreatitis, constipation , hyperparathyroidism, , D&C, cholecystectomy FH: Family History: Cancer, Hypertension Social History: Smoke: No ALCOHOL: none Drugs: None ROS: GEN: +chills, sweats HEENT: Denies blurred vision, sore throat CV: Denies chest pain RESP: +recent pneumonia GI: Per HPI : Denies hematuria, dysuria ENDO: Denies weight changes NEURO: Denies confusion, dizziness MSK: Denies weakness, joint pain/swelling SKIN: Denies jaundice, pruritus VItals: Vitals: Vital Signs Date Time Temp Pulse Resp B/P Pulse Ox O2 Delivery O2 Flow Rate FiO2 05/11/16 10:01 98.7 103 18 167/111 98 Nasal Cannula 2.0 98.7 Labs: Labs: Laboratory Tests Test 05/10/16 12:00 05/11/16 08:03 White Blood Count 8.5x10^3/uL (4.0-11.0) Red Blood Count 2.34x10^6/uL (3.50-5.40) Hemoglobin 7.6g/dL (12.0-15.5) 7.3g/dL (12.0-15.5) Hematocrit 23.3% (36.0-47.0) Mean Corpuscular Volume 100fL (79-100) Mean Corpuscular Hemoglobin 33pg (25-35) Mean Corpuscular Hemoglobin Concent 33g/dL (31-37) Red Cell Distribution Width 20.4% (11.5-14.5) Platelet Count 242x10^3/uL (140-400) Neutrophils (%) (Auto) 82% (31-73) Lymphocytes (%) (Auto) 12% (24-48) Monocytes (%) (Auto) 4% (0-9) Eosinophils (%) (Auto) 2% (0-3) Basophils (%) (Auto) 1% (0-3) Neutrophils # (Auto) 7.0x10^3uL (1.8-7.7) Lymphocytes # (Auto) 1.0x10^3/uL (1.0-4.8) Monocytes # (Auto) 0.3x10^3/uL (0.0-1.1) Eosinophils # (Auto) 0.2x10^3/uL (0.0-0.7) Basophils # (Auto) 0.0x10^3/uL (0.0-0.2) Platelet Estimate Adequate (ADEQUATE) Polychromasia Slight Poikilocytosis Slight Anisocytosis Mod Macrocytosis Slight Sodium Level 143mmol/L (136-145) 141mmol/L (136-145) Potassium Level 6.1mmol/L (3.5-5.1) 5.1mmol/L (3.5-5.1) Chloride Level 104mmol/L (98-107) 101mmol/L (98-107) Carbon Dioxide Level 24mmol/L (21-32) 29mmol/L (21-32) Anion Gap 15 (6-14) 11 (6-14) Blood Urea Nitrogen 73mg/dL (7-20) 34mg/dL (7-20) Creatinine 7.8mg/dL (0.6-1.0) 4.7mg/dL (0.6-1.0) Estimated GFR (Cockcroft-Gault) 6.3 11.2 BUN/Creatinine Ratio 9 (6-20) Glucose Level 99mg/dL (70-99) 86mg/dL (70-99) Calcium Level 9.2mg/dL (8.5-10.1) 9.2mg/dL (8.5-10.1) Phosphorus Level 7.8mg/dL (2.6-4.7) 7.7mg/dL (2.6-4.7) Magnesium Level 2.5mg/dL (1.8-2.4) Total Bilirubin 0.5mg/dL (0.2-1.0) Aspartate Amino Transf (AST/SGOT) 11U/L (15-37) Alanine Aminotransferase (ALT/SGPT) 10U/L (14-59) Alkaline Phosphatase 618U/L (46-116) Total Protein 6.9g/dL (6.4-8.2) Albumin 3.3g/dL (3.4-5.0) 3.3g/dL (3.4-5.0) Albumin/Globulin Ratio 0.9 (1.0-1.7) Lipase 190U/L (73-393) Serum Test, Qualitative Negative (NEG) Allergies: Coded Allergies: Sulfa (Sulfonamide Antibiotics) (Verified Allergy, Intermediate, 07/07/14) haloperidol (Verified Allergy, Intermediate, Anxiety, 04/18/16) Medications: Current Medications Medications (Trade) Dose Ordered Sig/Rolly Route PRN Reason Start Time Stop Time Status Last Admin Dose Admin Fentanyl Citrate (Fentanyl 2ml Vial) 50 mcg PRN Q15MIN PRN IV PAIN GREATER THAN 3/10 05/10/16 12:30 05/11/16 12:29 05/10/16 13:38 Nitroglycerin (Nitrostat) 0.4 mg PRN Q5MIN PRN SL CHEST PAIN 05/10/16 12:30 05/10/16 12:55 Lorazepam (Ativan) 1 mg 1X ONCE IV 05/10/16 12:45 05/10/16 12:46 DC 05/10/16 12:58 Diphenhydramine HCl (Benadryl) 25 mg 1X PRN PRN IV ITCHING 05/10/16 14:45 05/11/16 14:44 05/10/16 14:58 Diphenhydramine HCl (Benadryl) 25 mg 1X PRN PRN IV ITCHING 05/10/16 14:45 05/11/16 14:44 05/10/16 15:09 Labetalol HCl (Normodyne) 10 mg PRN Q1HR PRN IVP SBP > 180 05/10/16 15:15 05/11/16 15:14 05/10/16 16:35 Amlodipine Besylate (Norvasc) 10 mg DAILY PO 05/10/16 17:00 05/11/16 08:39 Hydralazine HCl (Apresoline) 50 mg TID PO 05/10/16 21:00 05/11/16 08:45 Ondansetron HCl (Zofran Odt) 4 mg PRN Q8HRS PRN PO NAUSEA 05/10/16 16:45 05/11/16 08:40 Metoprolol Succinate (Toprol Xl) 200 mg DAILY PO 05/10/16 17:00 05/11/16 08:39 Albuterol/ Ipratropium (Duoneb) 3 ml Q4HRS W/A NEB 05/10/16 18:00 05/10/16 19:57 Lorazepam (Ativan) 1 mg PRN Q4HRS PRN IV ANXIETY / AGITATION 05/10/16 16:45 05/11/16 09:44 Hydromorphone HCl (Dilaudid) 0.8 mg PRN Q2HR PRN IVP PAIN 05/10/16 19:15 05/11/16 08:37 Labetalol HCl (Normodyne) 10 mg PRN Q2HR PRN IVP HYPERTENSION, SEE COMMENTS 05/10/16 19:15 05/10/16 22:48 Enalaprilat (Vasotec) 1.25 mg 1X ONCE IV 05/10/16 19:15 05/10/16 19:16 DC 05/10/16 20:01 Imaging: Imaging: CT A/P 05/10/16 w/o contrast IMPRESSION: 1. Anasarca. 2. Worsening pulmonary infiltrates suggesting pulmonary edema or pneumonia. 3. Increasing small right pleural effusion. 4. Small volume of ascites, unchanged since 04/17/2016. 5. Atrophic, calcified kidneys. 6. Chronic musculoskeletal abnormalities as described above. Acute Abd Series 05/10/16 IMPRESSION: 1. Mild/moderate asymmetric pulmonary edema versus multifocal pneumonia. 2. Moderate cardiomegaly. 3. Findings suggesting ascites. No evidence of obstruction. Head CT 05/10/16 IMPRESSION: 1. No acute intracranial findings. 2. Mild atrophy and chronic small vessel ischemic white matter change are advanced for patient age. 3. Calvarial changes suggesting secondary hyperparathyroidism. Hepatosplenomegaly noted on CT from 03/2016. PE: GEN: NAD HEENT: Atraumatic, PERRL LUNGS: decreased anteriorly HEART: tachycardic ABD: BS+ quiet, somewhat firm, diffusely tender, more so toward right flank EXTREMITY: No edema SKIN: No rashes, no jaundice NEURO/PSYCH: A & O 3 A/P: A/P: Abdominal pain w/ n/v, diarrhea -CT as above -onset 05/10, pt believes because out of Percocet and Xanax -worse during dialysis 05/08 (unable to finish) and 05/10, also worse after eating -usually has constipation -reports recent atbx use for pneumonia Anemia -history of this, B12 and foliate pending ESRD on HD, HTN -- Will review w/ Dr. Ag. SHANDA RENE May 11, 2016 11:52
--- NOTE | 2016-05-11 11:55 | PDOC ---
SUBJECTIVE ROS esrd Breathing easier today CVS: no Orthopnea, no CP RESP: min SOB, min BARAJAS GI: + Nausea, + Vomiting : no Dysuria, no Urgency OBJECTIVE Vital Signs Vital Signs Date Time Temp Pulse Resp B/P Pulse Ox O2 Delivery O2 Flow Rate FiO2 05/11/16 10:01 98.7 103 18 167/111 98 Nasal Cannula 2.0 98.7 I & 0 Intake and Output 05/11/16 07:00 Intake Total 840 ml Balance 840 ml Intake Oral 840 ml PHYSICAL EXAM Physical Exam General Appearance: Awake Alert Oriented x 3 In no Distress Eyes: VIsion Unchanged Conjunctiva Normal EN: No EN Drainage Mucous Memb. moist Neck: no JVD min JVP Supple no Thyromegaly CVS: S1 S2 + Murmur No Gallop No Rub no Edema Resp: scarlett bsal Rales occ Rhonchi no Acc. Muscle use GI: BAS +ve NO Bruit Non Tender Non Distended : no CVA tenderness; no Suprapubic Tenderness Assessment & Plan ESRD. Dialysis as below F 180 NR 3.0 . Hrs 2 K 2.5 Ca 140 Na 35 HC03 Qb 350 + Qd 500+ Heparin 0 Units Uf to dry weight or 1-2 kgs below as tolerated May give 25-50 gms of 25% Albumin if needed to maintain Hemodynamic stability Treatment plan reviewed and discussed with rotating field assembler ^K - corrected with HD - will run 2K today due to konwn dietary indiscretion SOB and ? Hypervolemia - Uf to a new Dry weight NV - may be related to inadequate dialysis given her non-compliance Anemia: Epogen as ordered Transfuse with next HD as needed. malgi HTN: she had refused BP meds this am. reval no Current BP meds when she takes it regularly. See orders for changes. KT -Bone & Mineral: known non-compliance with binders. watch trend on current regimen D/w Dr Kenney COMMENT/RELEVANT DATA Meds Current Medications Medications (Trade) Dose Ordered Sig/Rolly Start Time Stop Time Status Last Admin Dose Admin Albuterol/ Ipratropium (Duoneb) 3 ml Q4HRS W/A 05/10/16 18:00 05/10/16 19:57 3 ML Alprazolam (Xanax) 2 mg PRN Q8HRS PRN 05/10/16 16:52 Amlodipine Besylate (Norvasc) 10 mg DAILY 2/20/17 17:00 05/11/16 08:39 10 MG Darbepoetin Jude (Aranesp) 60 mcg WEEKLYHS 05/10/16 21:00 Diltiazem HCl (Cardizem) 30 mg 1X ONCE 05/10/16 14:15 05/10/16 14:22 DC Diphenhydramine HCl (Benadryl) 25 mg 1X PRN PRN 05/10/16 14:45 05/11/16 14:44 05/10/16 15:09 25 MG Enalaprilat (Vasotec) 1.25 mg 1X ONCE 05/10/16 19:15 05/10/16 19:16 DC 05/10/16 20:01 1.25 MG Fentanyl Citrate (Fentanyl 2ml Vial) 50 mcg PRN Q15MIN PRN 05/10/16 12:30 05/11/16 12:29 05/10/16 13:38 50 MCG Folic Acid (Folic Acid) 1 mg DAILY 05/12/16 09:00 Hydralazine HCl (Apresoline) 50 mg TID 05/10/16 21:00 05/11/16 08:45 50 MG Hydromorphone HCl (Dilaudid) 0.8 mg PRN Q2HR PRN 05/10/16 19:15 05/11/16 08:37 0.8 MG Influenza Virus Vaccine Quadrival (Fluarix Quad [id number] Syringe) 0.5 ml ONCE ONCE 05/11/16 09:00 05/11/16 09:04 DC Info (Do NOT chart on this placeholder) 1 each 1X ONCE 05/10/16 22:15 05/10/16 22:16 UNV Info (PHARMACY MONITORING -- do not chart) 1 each PRN DAILY PRN 05/10/16 14:45 UNV Info 1 each 1 each PRN DAILY PRN 05/10/16 14:45 Labetalol HCl (Normodyne) 10 mg PRN Q2HR PRN 05/10/16 19:15 05/10/16 22:48 10 MG Lorazepam (Ativan) 1 mg PRN Q4HRS PRN 05/10/16 16:45 05/11/16 09:44 1 MG Magnesium Sulfate/ Dextrose (Magnesium Sulfate PREMIX 2GM) 50 ml @ 25 mls/hr PRN DAILY PRN 05/10/16 15:00 Metoprolol Succinate (Toprol Xl) 200 mg DAILY 05/10/16 17:00 05/11/16 08:39 200 MG Nitroglycerin (Nitrostat) 0.4 mg PRN Q5MIN PRN 05/10/16 12:30 05/10/16 12:55 0.4 MG Ondansetron HCl (Zofran Odt) 4 mg PRN Q8HRS PRN 05/10/16 16:45 05/11/16 08:40 4 MG Oxycodone/ Acetaminophen (Percocet 7.5/ 325) 1 tab PRN Q8HRS PRN 05/10/16 16:45 Vitamin B Complex (Folbic Tablet) 1 tab DAILY 05/12/16 09:00 Lab Laboratory Tests Test 05/10/16 12:00 05/11/16 08:03 White Blood Count 8.5x10^3/uL (4.0-11.0) Red Blood Count 2.34x10^6/uL (3.50-5.40) Hemoglobin 7.6g/dL (12.0-15.5) 7.3g/dL (12.0-15.5) Hematocrit 23.3% (36.0-47.0) Mean Corpuscular Volume 100fL (79-100) Mean Corpuscular Hemoglobin 33pg (25-35) Mean Corpuscular Hemoglobin Concent 33g/dL (31-37) Red Cell Distribution Width 20.4% (11.5-14.5) Platelet Count 242x10^3/uL (140-400) Neutrophils (%) (Auto) 82% (31-73) Lymphocytes (%) (Auto) 12% (24-48) Monocytes (%) (Auto) 4% (0-9) Eosinophils (%) (Auto) 2% (0-3) Basophils (%) (Auto) 1% (0-3) Neutrophils # (Auto) 7.0x10^3uL (1.8-7.7) Lymphocytes # (Auto) 1.0x10^3/uL (1.0-4.8) Monocytes # (Auto) 0.3x10^3/uL (0.0-1.1) Eosinophils # (Auto) 0.2x10^3/uL (0.0-0.7) Basophils # (Auto) 0.0x10^3/uL (0.0-0.2) Platelet Estimate Adequate (ADEQUATE) Polychromasia Slight Poikilocytosis Slight Anisocytosis Mod Macrocytosis Slight Sodium Level 143mmol/L (136-145) 141mmol/L (136-145) Potassium Level 6.1mmol/L (3.5-5.1) 5.1mmol/L (3.5-5.1) Chloride Level 104mmol/L (98-107) 101mmol/L (98-107) Carbon Dioxide Level 24mmol/L (21-32) 29mmol/L (21-32) Anion Gap 15 (6-14) 11 (6-14) Blood Urea Nitrogen 73mg/dL (7-20) 34mg/dL (7-20) Creatinine 7.8mg/dL (0.6-1.0) 4.7mg/dL (0.6-1.0) Estimated GFR (Cockcroft-Gault) 6.3 11.2 BUN/Creatinine Ratio 9 (6-20) Glucose Level 99mg/dL (70-99) 86mg/dL (70-99) Calcium Level 9.2mg/dL (8.5-10.1) 9.2mg/dL (8.5-10.1) Phosphorus Level 7.8mg/dL (2.6-4.7) 7.7mg/dL (2.6-4.7) Magnesium Level 2.5mg/dL (1.8-2.4) Total Bilirubin 0.5mg/dL (0.2-1.0) Aspartate Amino Transf (AST/SGOT) 11U/L (15-37) Alanine Aminotransferase (ALT/SGPT) 10U/L (14-59) Alkaline Phosphatase 618U/L (46-116) Total Protein 6.9g/dL (6.4-8.2) Albumin 3.3g/dL (3.4-5.0) 3.3g/dL (3.4-5.0) Albumin/Globulin Ratio 0.9 (1.0-1.7) Lipase 190U/L (73-393) Serum Test, Qualitative Negative (NEG) VALERY SOARES MD May 11, 2016 11:55
[2016-05-11] MEDS: IPRATRPIUM/ALBUTEROL 0.5/2.5MG 3 ML NEBU. NEB SCH ×4 (12:01→22:35)
--- NOTE | 2016-05-11 13:52 | PDOC ---
Provider Note Provider Note dictated suspect CHF SINDY SORENSEN MD May 11, 2016 13:52
--- NOTE | 2016-05-11 15:03 | PDOC ---
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, uremia, Met gap acidosis hyperkalemia, hyperphos anemia of CKD, macrocytic, check folic and b12 acute abd pain w/ nasuea, viral GI Accelerated HTN, Anxiety D/o, Home xanax and PRN ativan History of Present Illness History of Present Illness feels better today back pain, reports DJD breathing much better, still htn Vitals Vitals Vital Signs Date Time Temp Pulse Resp B/P Pulse Ox O2 Delivery O2 Flow Rate FiO2 05/11/16 14:00 99 167/111 05/11/16 13:19 17 87 Nasal Cannula 2.0 05/11/16 10:01 98.7 98.7 Physical Exam General: Alert, Cooperative, moderate distress, severe distress Lungs: Clear Abdomen: Normal bowel sounds, Soft, No tenderness Extremities: No clubbing, No cyanosis, Normal pulses, Other (Tr Le edema) Skin: No significant lesion Labs LABS Laboratory Tests Test 05/11/16 08:03 Hemoglobin 7.3g/dL (12.0-15.5) Sodium Level 141mmol/L (136-145) Potassium Level 5.1mmol/L (3.5-5.1) Chloride Level 101mmol/L (98-107) Carbon Dioxide Level 29mmol/L (21-32) Anion Gap 11 (6-14) Blood Urea Nitrogen 34mg/dL (7-20) Creatinine 4.7mg/dL (0.6-1.0) Estimated GFR (Cockcroft-Gault) 11.2 Glucose Level 86mg/dL (70-99) Calcium Level 9.2mg/dL (8.5-10.1) Phosphorus Level 7.7mg/dL (2.6-4.7) Albumin 3.3g/dL (3.4-5.0) Assessment and Plan Assessmemt and Plan discussed with renal HD again today cont current lidoderm patch, consult physiatry Problems Medical Problems: (1) Abdominal pain Status: Acute (2) ESRD (end stage renal disease) Status: Acute (3) Respiratory failure Status: Acute Problems: Comment Review of Relevant I have reviewed the following items lynnette (where applicable) has been applied. Labs Laboratory Tests Test 05/10/16 12:00 05/11/16 08:03 White Blood Count 8.5x10^3/uL (4.0-11.0) Red Blood Count 2.34x10^6/uL (3.50-5.40) Hemoglobin 7.6g/dL (12.0-15.5) 7.3g/dL (12.0-15.5) Hematocrit 23.3% (36.0-47.0) Mean Corpuscular Volume 100fL (79-100) Mean Corpuscular Hemoglobin 33pg (25-35) Mean Corpuscular Hemoglobin Concent 33g/dL (31-37) Red Cell Distribution Width 20.4% (11.5-14.5) Platelet Count 242x10^3/uL (140-400) Neutrophils (%) (Auto) 82% (31-73) Lymphocytes (%) (Auto) 12% (24-48) Monocytes (%) (Auto) 4% (0-9) Eosinophils (%) (Auto) 2% (0-3) Basophils (%) (Auto) 1% (0-3) Neutrophils # (Auto) 7.0x10^3uL (1.8-7.7) Lymphocytes # (Auto) 1.0x10^3/uL (1.0-4.8) Monocytes # (Auto) 0.3x10^3/uL (0.0-1.1) Eosinophils # (Auto) 0.2x10^3/uL (0.0-0.7) Basophils # (Auto) 0.0x10^3/uL (0.0-0.2) Platelet Estimate Adequate (ADEQUATE) Polychromasia Slight Poikilocytosis Slight Anisocytosis Mod Macrocytosis Slight Sodium Level 143mmol/L (136-145) 141mmol/L (136-145) Potassium Level 6.1mmol/L (3.5-5.1) 5.1mmol/L (3.5-5.1) Chloride Level 104mmol/L (98-107) 101mmol/L (98-107) Carbon Dioxide Level 24mmol/L (21-32) 29mmol/L (21-32) Anion Gap 15 (6-14) 11 (6-14) Blood Urea Nitrogen 73mg/dL (7-20) 34mg/dL (7-20) Creatinine 7.8mg/dL (0.6-1.0) 4.7mg/dL (0.6-1.0) Estimated GFR (Cockcroft-Gault) 6.3 11.2 BUN/Creatinine Ratio 9 (6-20) Glucose Level 99mg/dL (70-99) 86mg/dL (70-99) Calcium Level 9.2mg/dL (8.5-10.1) 9.2mg/dL (8.5-10.1) Phosphorus Level 7.8mg/dL (2.6-4.7) 7.7mg/dL (2.6-4.7) Magnesium Level 2.5mg/dL (1.8-2.4) Total Bilirubin 0.5mg/dL (0.2-1.0) Aspartate Amino Transf (AST/SGOT) 11U/L (15-37) Alanine Aminotransferase (ALT/SGPT) 10U/L (14-59) Alkaline Phosphatase 618U/L (46-116) Total Protein 6.9g/dL (6.4-8.2) Albumin 3.3g/dL (3.4-5.0) 3.3g/dL (3.4-5.0) Albumin/Globulin Ratio 0.9 (1.0-1.7) Lipase 190U/L (73-393) Serum Test, Qualitative Negative (NEG) Laboratory Tests Test 05/11/16 08:03 Hemoglobin 7.3g/dL (12.0-15.5) Sodium Level 141mmol/L (136-145) Potassium Level 5.1mmol/L (3.5-5.1) Chloride Level 101mmol/L (98-107) Carbon Dioxide Level 29mmol/L (21-32) Anion Gap 11 (6-14) Blood Urea Nitrogen 34mg/dL (7-20) Creatinine 4.7mg/dL (0.6-1.0) Estimated GFR (Cockcroft-Gault) 11.2 Glucose Level 86mg/dL (70-99) Calcium Level 9.2mg/dL (8.5-10.1) Phosphorus Level 7.7mg/dL (2.6-4.7) Albumin 3.3g/dL (3.4-5.0) Medications Current Medications Fentanyl Citrate (Fentanyl 2ml Vial) 50 mcg PRN Q15MIN PRN IV PAIN GREATER THAN 3/10 Last administered on 05/10/16 13:38; Start 05/10/16 at 12:30; Stop at 12:29; Status DC Nitroglycerin (Nitrostat) 0.4 mg PRN Q5MIN PRN SL CHEST PAIN Last administered on 05/10/16 12:55; Start 05/10/16 at 12:30 Lorazepam (Ativan) 1 mg 1X ONCE IV Last administered on 05/10/16 12:58; Start 05/10/16 at 12:45; Stop 05/10/16 at 12:46; Status DC Diltiazem HCl (Cardizem) 30 mg 1X ONCE PO ; Start 05/10/16 at 14:15; Stop 05/10 at 14:22; Status DC Diphenhydramine HCl (Benadryl) 25 mg 1X PRN PRN IV ITCHING Last administered on 05/10/16 14:58; Start 05/10/16 at 14:45; Stop 05/11/16 at 14:44; Status DC Diphenhydramine HCl (Benadryl) 25 mg 1X PRN PRN IV ITCHING Last administered on 05/10/16 15:09; Start 05/10/16 at 14:45; Stop 05/11/16 at 14:44; Status DC Info (PHARMACY MONITORING -- do not chart) 1 each PRN DAILY PRN MC SEE COMMENTS ; Start 05/10/16 at 14:45; Status UNV Info 1 each 1 each PRN DAILY PRN MC SEE COMMENTS; Start 05/10/16 at 14:45 Magnesium Sulfate/ Dextrose (Magnesium Sulfate PREMIX 2GM) 50 ml @ 25 mls/hr PRN DAILY PRN IV for Mag < 1.7 on am labs; Start 05/10/16 at 15:00 Darbepoetin Jude (Aranesp) 60 mcg WEEKLYHS SQ ; Start 05/10/16 at 21:00 Labetalol HCl (Normodyne) 10 mg PRN Q1HR PRN IVP SBP > 180 Last administered on 05/10/16 16:35; Start 05/10/16 at 15:15; Stop 05/11/16 at 15:14 Alprazolam (Xanax) 2 mg PRN TID PRN PO ANXIETY / AGITATION; Start 05/10/16 at 16:45; Stop 05/10/16 at 16:52; Status DC Amlodipine Besylate (Norvasc) 10 mg DAILY PO Last administered on 05/11/16 08: 39; Start 05/10/16 at 17:00 Hydralazine HCl (Apresoline) 50 mg TID PO Last administered on 05/11/16 14:00 ; Start 05/10/16 at 21:00 Ondansetron HCl (Zofran Odt) 4 mg PRN Q8HRS PRN PO NAUSEA Last administered on 05/11/16 08:40; Start 05/10/16 at 16:45 Oxycodone/ Acetaminophen (Percocet 7.5/ 325) 1 tab PRN Q8HRS PRN PO PAIN; Start 05/10/16 at 16:45 Metoprolol Succinate (Toprol Xl) 200 mg DAILY PO Last administered on 08:39; Start 05/10/16 at 17:00 Albuterol/ Ipratropium (Duoneb) 3 ml Q4HRS W/A NEB Last administered on 12:01; Start 05/10/16 at 18:00 Lorazepam (Ativan) 1 mg PRN Q4HRS PRN IV ANXIETY / AGITATION Last administered on 05/11/16 14:22; Start 05/10/16 at 16:45 Alprazolam (Xanax) 2 mg PRN Q8HRS PRN PO ANXIETY / AGITATION; Start 05/10/16 at 16:52 Hydromorphone HCl (Dilaudid) 0.8 mg PRN Q2HR PRN IVP PAIN Last administered on 05/11/16 13:19; Start 05/10/16 at 19:15 Labetalol HCl (Normodyne) 10 mg PRN Q2HR PRN IVP HYPERTENSION, SEE COMMENTS Last administered on 05/10/16 22:48; Start 05/10/16 at 19:15 Enalaprilat (Vasotec) 1.25 mg 1X ONCE IV Last administered on 05/10/16 20:01 ; Start 05/10/16 at 19:15; Stop 05/10/16 at 19:16; Status DC Info (Do NOT chart on this placeholder) 1 each 1X ONCE MC ; Start 05/10/16 at 22:15; Stop 05/10/16 at 22:16; Status UNV Influenza Virus Vaccine Quadrival (Fluarix Quad [id number] Syringe) 0.5 ml ONCE ONCE VAX IM ; Start 05/11/16 at 09:00; Stop 05/11/16 at 09:04; Status DC Vitamin B Complex (Folbic Tablet) 1 tab DAILY PO ; Start 05/12/16 at 09:00 Folic Acid (Folic Acid) 1 mg DAILY PO ; Start 05/12/16 at 09:00 Lidocaine (Lidoderm) 1 patch DAILY TD ; Start 05/11/16 at 13:00 Pantoprazole Sodium (Protonix) 40 mg DAILYAC PO ; Start 05/11/16 at 16:30 Active Scripts Active Zofran Odt (Ondansetron) 4 Mg Tab.rapdis 1 Tab SL Q8HRS PRN Reported Percocet 7.5-325 Mg Tablet (Oxycodone/Acetaminophen) 1 Each Tablet 1 Tab PO PRN Q8HRS PRN Xanax (Alprazolam) 0.25 Mg Tablet 2 Mg PO TID PRN Metoprolol Succinate ( Xl ) (Metoprolol Succinate) 200 Mg Tab.er.24h 1 Tab PO DAILY Hydralazine Hcl 50 Mg Tablet 1 Tab PO TID Amlodipine Besylate 10 Mg Tablet 1 Tab PO DAILY Vitals/I & O Vital Sign - Last 24 Hours 05/10/16 05/10/16 05/10/16 05/10/16 15:23 16:35 18:58 19:25 Temp 98.6 98.6 Pulse 96 95 112 114 Resp 20 20 B/P 200/132 207/132 203/137 204/127 Pulse Ox 95 95 O2 Delivery Nasal Cannula Nasal Cannula O2 Flow Rate 2.0 2.0 05/10/16 05/10/16 05/10/16 05/10/16 19:59 20:00 20:01 20:05 Pulse 109 109 B/P 200/133 200/133 Pulse Ox 95 O2 Delivery Nasal Cannula Nasal Cannula O2 Flow Rate 2.0 2.0 05/10/16 05/10/16 05/10/16 05/10/16 20:12 22:40 22:48 23:31 Temp 98.0 98.0 Pulse 111 116 Resp 24 20 B/P 199/119 199/119 Pulse Ox 96 O2 Delivery Nasal Cannula Nasal Cannula Nasal Cannula O2 Flow Rate 2.0 2.0 2.0 05/11/16 05/11/16 05/11/16 05/11/16 03:24 03:30 05:07 07:09 Temp 98.5 98.2 98.5 98.2 Pulse 102 98 Resp 18 20 B/P 162/113 173/117 Pulse Ox 97 98 O2 Delivery Nasal Cannula Nasal Cannula Nasal Cannula Nasal Cannula O2 Flow Rate 2.0 2.0 2.0 05/11/16 05/11/16 05/11/16 05/11/16 08:00 08:37 08:39 08:39 Pulse 99 99 Resp 20 B/P 173/117 173/117 O2 Delivery Nasal Cannula Nasal Cannula O2 Flow Rate 2.0 2.0 05/11/16 05/11/16 05/11/16 05/11/16 08:45 09:07 10:01 11:55 Temp 98.7 98.7 Pulse 99 103 Resp 16 18 B/P 173/117 167/111 Pulse Ox 90 98 87 O2 Delivery Nasal Cannula Nasal Cannula Nasal Cannula O2 Flow Rate 2.0 2.0 2.0 05/11/16 05/11/16 13:19 14:00 Pulse 99 Resp 17 B/P 167/111 Pulse Ox 87 O2 Delivery Nasal Cannula O2 Flow Rate 2.0 Intake and Output 05/10/16 05/10/16 05/11/16 15:00 23:00 07:00 Intake Total 840 ml Balance 840 ml DIONICIO TIMMONS MD May 11, 2016 15:02
[2016-05-11 15:08] VITALS: BP 145/101
--- NOTE | 2016-05-11 15:50 | CONS ---
DATE OF CONSULTATION: PULMONARY CONSULTATION ATTENDING PHYSICIAN: Dr. Kenney. REASON FOR CONSULTATION: Dyspnea. HISTORY OF PRESENT ILLNESS: The patient is a 26-year-old pleasant female, who has history of chronic kidney disease since she was 9 years old post-strep throat infection. The patient has been on dialysis for the past 3 years. Normally she does not use oxygen. She came to the Emergency Room, after during dialysis, she became dyspneic. She thought she had a panic attack. She had some abdominal pain as well. She was admitted to workup these symptoms. The patient also stated that she ran out of Xanax, which she uses for her anxiety. She feels much better. Currently, she is requiring oxygen at 2 liters. Saturations were 98% earlier. Blood pressure has been running high with systolic of 167 and diastolic of 111. The patient's chest x-ray was reviewed, which was done on 05/10/2016. Most likely this is consistent with asymmetric pulmonary edema. She also had CT abdomen and pelvis, which was performed yesterday as well and it reveals worsening pulmonary infiltrates, increasing small right pleural effusion and anasarca. She has no significant history of tobacco use. I have been asked to see her for further evaluation. PAST MEDICAL HISTORY: History of end-stage renal disease, on hemodialysis for past 3 years, history of hypertension, history of anemia, anxiety disorder, and hyperparathyroidism. PAST SURGICAL HISTORY: and dialysis access surgeries. FAMILY HISTORY: Noncontributory to lungs. SOCIAL HISTORY: Nonsmoker, nonalcoholic. ALLERGIES: Sulfa and haloperidol. MEDICATIONS: Reviewed as listed in the MRAD including DuoNebs. REVIEW OF SYSTEMS: Twelve-point system obtained. Pertinent positives discussed in my history of present illness, otherwise noncontributory. All systems that were negative were reviewed as well. PHYSICAL EXAMINATION: GENERAL: She is awake, in no obvious respiratory distress. VITAL SIGNS: Blood pressure 167/111, afebrile. HEENT: Sclerae nonicteric. NECK: Supple. LUNGS: Diminished breath sounds. CARDIOVASCULAR: Regular rate and rhythm. ABDOMEN: Soft and nontender. EXTREMITIES: With no pitting edema. LABORATORY DATA: Reviewed. Hemoglobin is 7.6, white cell count 8.5. Chemistries with potassium of 6.1, now down to 5.1. BUN is 34 and creatinine 4.7. IMPRESSION: 1. Acute hypoxic respiratory failure, I think most likely related to asymmetric pulmonary edema. Diastolic hypertension may have contributed to the symptoms. Clinically, less likely anxiety or panic disorder. 2. No significant history of tobacco use. 3. 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 We will see the response to dialysis and would hold antibiotics. 4. History of end-stage renal disease, on hemodialysis for past 3 years. RECOMMENDATIONS: 1. Continue with hemodialysis with ultrafiltration. 2. Repeat chest x-ray after at least 2 dialysis sessions. 3. Wean oxygen. 4. Follow renal recommendations. 5. Obtain an echocardiogram. 6. Management of blood pressure per PCP. Discussed with RN. SINDY SORENSEN MD DR: MALINA/phuc JOB#: [id number] / [id number]
[2016-05-11] MEDS: LIDOCAINE (700MG/PATCH) PATCH. TD SCH (18:02)
[2016-05-11] MEDS: PANTOPRAZOLE 40 MG TABLET. PO SCH (18:02)
[2016-05-11] MEDS ORDERED: IV NORMAL SALINE 1000ML BAG 1,000 ML IV PRN ×2 (19:17)
[2016-05-11 19:23] LABS: FOLIC ACID 10.6 ng/mL (>3.0)
[2016-05-11] MEDS ORDERED: DIALYSIS PATIENT. MC PRN (19:30)
[2016-05-11] MEDS ORDERED: DIPHENHYDRAMINE 50 MG/ML VIAL ONE (19:37)
[2016-05-11] MEDS ORDERED: LIDOCAINE 1% PF 2 ML VIAL. ONE (19:37)
[2016-05-11] MEDS: LABETALOL 20 MG/4 ML DISP.SYRIN. IVP PRN (22:01)
[2016-05-11 22:48] VITALS: BP 176/117
[2016-05-12] MEDS: HYDROMORPHONE 2 MG/ML VIAL. IVP PRN ×6 (02:55→23:17)
[2016-05-12 03:17] VITALS: BP 161/119
[2016-05-12] MEDS: LORAZEPAM 2 MG/ML VIAL IV PRN ×5 (03:40→20:10)
[2016-05-12] MEDS: DIPHENHYDRAMINE 50 MG/ML VIAL IVP PRN ×4 (04:31→22:37)
[2016-05-12 06:48] LABS: HEMATOCRIT 23.7 % (36.0-47.0); HEMOGLOBIN 7.5 g/dL (12.0-15.5); RED BLOOD COUNT 2.36 x10^6/uL (3.50-5.40); WHITE BLOOD COUNT 9.1 x10^3/uL (4.0-11.0)
[2016-05-12 07:00] VITALS: BP 176/118
[2016-05-12] MEDS: IPRATRPIUM/ALBUTEROL 0.5/2.5MG 3 ML NEBU. NEB SCH ×3 (07:14→17:56)
[2016-05-12 07:25] LABS: ALBUMIN 3.4 g/dL (3.4-5.0); CALCIUM 9.9 mg/dL (8.5-10.1); CREATININE 3.1 mg/dL (0.6-1.0); GFR 18.2; PHOSPHORUS 6.4 mg/dL (2.6-4.7); POTASSIUM 4.5 mmol/L (3.5-5.1)
--- NOTE | 2016-05-12 08:33 | PDOC ---
PULMONARY PROGRESS NOTES Subjective feels better Vitals Vital Signs Date Time Temp Pulse Resp B/P Pulse Ox O2 Delivery O2 Flow Rate FiO2 05/12/16 07:15 98 Nasal Cannula 2.0 05/12/16 03:17 98.3 99 20 161/119 98.3 General: Alert, No acute distress Lungs: Other (few rhonchi right lung) Cardiovascular: S1 Abdomen: Soft Neuro Exam: Alert Extremities: No Edema Skin: Warm Labs Laboratory Tests Test 05/10/16 12:00 05/11/16 08:03 05/12/16 06:20 White Blood Count 8.5x10^3/uL (4.0-11.0) 9.1x10^3/uL (4.0-11.0) Red Blood Count 2.34x10^6/uL (3.50-5.40) 2.36x10^6/uL (3.50-5.40) Hemoglobin 7.6g/dL (12.0-15.5) 7.3g/dL (12.0-15.5) 7.5g/dL (12.0-15.5) Hematocrit 23.3% (36.0-47.0) 23.7% (36.0-47.0) Mean Corpuscular Volume 100fL (79-100) 100fL (79-100) Mean Corpuscular Hemoglobin 33pg (25-35) 32pg (25-35) Mean Corpuscular Hemoglobin Concent 33g/dL (31-37) 32g/dL (31-37) Red Cell Distribution Width 20.4% (11.5-14.5) 21.0% (11.5-14.5) Platelet Count 242x10^3/uL (140-400) 198x10^3/uL (140-400) Neutrophils (%) (Auto) 82% (31-73) Lymphocytes (%) (Auto) 12% (24-48) Monocytes (%) (Auto) 4% (0-9) Eosinophils (%) (Auto) 2% (0-3) Basophils (%) (Auto) 1% (0-3) Neutrophils # (Auto) 7.0x10^3uL (1.8-7.7) Lymphocytes # (Auto) 1.0x10^3/uL (1.0-4.8) Monocytes # (Auto) 0.3x10^3/uL (0.0-1.1) Eosinophils # (Auto) 0.2x10^3/uL (0.0-0.7) Basophils # (Auto) 0.0x10^3/uL (0.0-0.2) Platelet Estimate Adequate (ADEQUATE) Polychromasia Slight Poikilocytosis Slight Anisocytosis Mod Macrocytosis Slight Sodium Level 143mmol/L (136-145) 141mmol/L (136-145) 139mmol/L (136-145) Potassium Level 6.1mmol/L (3.5-5.1) 5.1mmol/L (3.5-5.1) 4.5mmol/L (3.5-5.1) Chloride Level 104mmol/L (98-107) 101mmol/L (98-107) 100mmol/L (98-107) Carbon Dioxide Level 24mmol/L (21-32) 29mmol/L (21-32) 25mmol/L (21-32) Anion Gap 15 (6-14) 11 (6-14) 14 (6-14) Blood Urea Nitrogen 73mg/dL (7-20) 34mg/dL (7-20) 19mg/dL (7-20) Creatinine 7.8mg/dL (0.6-1.0) 4.7mg/dL (0.6-1.0) 3.1mg/dL (0.6-1.0) Estimated GFR (Cockcroft-Gault) 6.3 11.2 18.2 BUN/Creatinine Ratio 9 (6-20) Glucose Level 99mg/dL (70-99) 86mg/dL (70-99) 95mg/dL (70-99) Calcium Level 9.2mg/dL (8.5-10.1) 9.2mg/dL (8.5-10.1) 9.9mg/dL (8.5-10.1) Phosphorus Level 7.8mg/dL (2.6-4.7) 7.7mg/dL (2.6-4.7) 6.4mg/dL (2.6-4.7) Magnesium Level 2.5mg/dL (1.8-2.4) Total Bilirubin 0.5mg/dL (0.2-1.0) Aspartate Amino Transf (AST/SGOT) 11U/L (15-37) Alanine Aminotransferase (ALT/SGPT) 10U/L (14-59) Alkaline Phosphatase 618U/L (46-116) Total Protein 6.9g/dL (6.4-8.2) Albumin 3.3g/dL (3.4-5.0) 3.3g/dL (3.4-5.0) 3.4g/dL (3.4-5.0) Albumin/Globulin Ratio 0.9 (1.0-1.7) Lipase 190U/L (73-393) Serum Test, Qualitative Negative (NEG) Vitamin B12 Level 375pg/mL (211-946) Folic Acid (LAB) 10.6ng/mL (>3.0) Laboratory Tests Test 05/12/16 06:20 White Blood Count 9.1x10^3/uL (4.0-11.0) Red Blood Count 2.36x10^6/uL (3.50-5.40) Hemoglobin 7.5g/dL (12.0-15.5) Hematocrit 23.7% (36.0-47.0) Mean Corpuscular Volume 100fL (79-100) Mean Corpuscular Hemoglobin 32pg (25-35) Mean Corpuscular Hemoglobin Concent 32g/dL (31-37) Red Cell Distribution Width 21.0% (11.5-14.5) Platelet Count 198x10^3/uL (140-400) Sodium Level 139mmol/L (136-145) Potassium Level 4.5mmol/L (3.5-5.1) Chloride Level 100mmol/L (98-107) Carbon Dioxide Level 25mmol/L (21-32) Anion Gap 14 (6-14) Blood Urea Nitrogen 19mg/dL (7-20) Creatinine 3.1mg/dL (0.6-1.0) Estimated GFR (Cockcroft-Gault) 18.2 Glucose Level 95mg/dL (70-99) Calcium Level 9.9mg/dL (8.5-10.1) Phosphorus Level 6.4mg/dL (2.6-4.7) Albumin 3.4g/dL (3.4-5.0) Medications Active Scripts Medications Dose Route/Sig Days Date Category Zofran Odt (Ondansetron) 4 Mg Tab.rapdis 1 Tab SL Q8HRS PRN 10/28/15 Rx Percocet 7.5-325 Mg Tablet (Oxycodone/Acetaminophen) 1 Each Tablet 1 Tab PO PRN Q8HRS PRN 08/30/14 Reported Xanax (Alprazolam) 0.25 Mg Tablet 2 Mg PO TID PRN 11/10/13 Reported Metoprolol Succinate ( Xl ) (Metoprolol Succinate) 200 Mg Tab.er.24h 1 Tab PO DAILY 11/10/13 Reported Hydralazine Hcl 50 Mg Tablet 1 Tab PO TID 11/10/13 Reported Amlodipine Besylate 10 Mg Tablet 1 Tab PO DAILY 11/10/13 Reported Impression . 1. Acute hypoxic respiratory failure, I think most likely related to asymmetric pulmonary edema. Diastolic hypertension may have contributed to the symptoms. Clinically, less likely anxiety or panic disorder. 2. No significant history of tobacco use. 3. 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 We will see the response to dialysis and would hold antibiotics. 4. History of end-stage renal disease, on hemodialysis for past 3 years. Plan . 1. Continue with hemodialysis with ultrafiltration. 2. Repeat chest x-ray after at least 2 dialysis sessions. 3. Wean oxygen. 4. Follow renal recommendations. 5. Obtain an echocardiogram. 6. Management of blood pressure per PCP. SINDY SORENSEN MD May 12, 2016 08:33
[2016-05-12] MEDS: FOLIC ACID 1 MG TABLET PO SCH (09:07)
[2016-05-12] MEDS: VITAMIN B12,B9,B6 COMPLEX 1 TABLET. PO SCH (09:07)
[2016-05-12] MEDS: HYDRALAZINE 50 MG TABLET PO SCH ×3 (09:07→20:10)
[2016-05-12] MEDS: PANTOPRAZOLE 40 MG TABLET. PO SCH (09:07)
[2016-05-12] MEDS: AMLODIPINE BESYLATE 10 MG TABLET PO SCH (09:08)
[2016-05-12] MEDS: METOPROLOL SUCC 24HR ER 100 MG TAB.ER.24H. PO SCH (09:08)
[2016-05-12] MEDS: LIDOCAINE (700MG/PATCH) PATCH. TD SCH (09:09)
--- NOTE | 2016-05-12 09:25 | RAD ---
EXAM: Frontal pelvis with 2V right hip. HISTORY: Right hip fracture. COMPARISON: 02/20/2016. FINDINGS: The right femoral head and neck have either been resected or have almost completely resorbed. A small remnant of the right femoral head remains located within the acetabulum. Dense material lateral to the intratrochanteric region persists since 04/17/2016. Previously noted dense material in the acetabulum is no longer seen. The right distal femur has migrated proximally and superolaterally. There are fractures of both superior and inferior pubic rami. The pubic bodies are mostly resorbed and the symphysis is widened. There is also sclerosis and widening of the sacroiliac joints. Osseous sclerosis is consistent with secondary hyperparathyroidism. There are diffuse atherosclerotic calcifications. IMPRESSION: 1. The right femoral head and neck are mostly absent, indicating resection or resolution. Correlate with surgical history. 2. Superolateral subluxation of the right distal femoral fragment. 3. Subacute fractures of the superior and inferior. Very mild bilaterally with partial resorption of the pubic bodies and widening of the pubic symphysis. 4. Widening and sclerosis about both sacroiliac joints. 5. Changes consistent with secondary hyperparathyroidism.
--- NOTE | 2016-05-12 09:55 | PDOC ---
PROGRESS NOTES Subjective Subjective No new complaints. Objective Objective Vital Signs Date Time Temp Pulse Resp B/P Pulse Ox O2 Delivery O2 Flow Rate FiO2 05/12/16 09:08 106 176/118 05/12/16 07:15 98 Nasal Cannula 2.0 05/12/16 07:00 97.1 18 97.1 Intake and Output 05/12/16 07:00 Intake Total 1040 ml Output Total 0 ml Balance 1040 ml Intake Oral 1040 ml Output Urine Total 0 ml Physical Exam Physical Exam She is supine in bed and does not seem to be in any acute distress. She continues with tenderness to palpation over thoracic and lumbar paraspinal muscles and right trochanteric bursa area. Assessment Assessment Problems Medical Problems: (1) Abdominal pain Status: Acute (2) ESRD (end stage renal disease) Status: Acute (3) Respiratory failure Status: Acute Plan Plan of Care To get her up as tolerated and physical and occupational therapy to see her and await orthopedic advise. Comment Review of Relevant I have reviewed the following items lynnette (where applicable) has been applied. Labs Laboratory Tests Test 05/10/16 12:00 05/11/16 08:03 05/12/16 06:20 White Blood Count 8.5x10^3/uL (4.0-11.0) 9.1x10^3/uL (4.0-11.0) Red Blood Count 2.34x10^6/uL (3.50-5.40) 2.36x10^6/uL (3.50-5.40) Hemoglobin 7.6g/dL (12.0-15.5) 7.3g/dL (12.0-15.5) 7.5g/dL (12.0-15.5) Hematocrit 23.3% (36.0-47.0) 23.7% (36.0-47.0) Mean Corpuscular Volume 100fL (79-100) 100fL (79-100) Mean Corpuscular Hemoglobin 33pg (25-35) 32pg (25-35) Mean Corpuscular Hemoglobin Concent 33g/dL (31-37) 32g/dL (31-37) Red Cell Distribution Width 20.4% (11.5-14.5) 21.0% (11.5-14.5) Platelet Count 242x10^3/uL (140-400) 198x10^3/uL (140-400) Neutrophils (%) (Auto) 82% (31-73) Lymphocytes (%) (Auto) 12% (24-48) Monocytes (%) (Auto) 4% (0-9) Eosinophils (%) (Auto) 2% (0-3) Basophils (%) (Auto) 1% (0-3) Neutrophils # (Auto) 7.0x10^3uL (1.8-7.7) Lymphocytes # (Auto) 1.0x10^3/uL (1.0-4.8) Monocytes # (Auto) 0.3x10^3/uL (0.0-1.1) Eosinophils # (Auto) 0.2x10^3/uL (0.0-0.7) Basophils # (Auto) 0.0x10^3/uL (0.0-0.2) Platelet Estimate Adequate (ADEQUATE) Polychromasia Slight Poikilocytosis Slight Anisocytosis Mod Macrocytosis Slight Sodium Level 143mmol/L (136-145) 141mmol/L (136-145) 139mmol/L (136-145) Potassium Level 6.1mmol/L (3.5-5.1) 5.1mmol/L (3.5-5.1) 4.5mmol/L (3.5-5.1) Chloride Level 104mmol/L (98-107) 101mmol/L (98-107) 100mmol/L (98-107) Carbon Dioxide Level 24mmol/L (21-32) 29mmol/L (21-32) 25mmol/L (21-32) Anion Gap 15 (6-14) 11 (6-14) 14 (6-14) Blood Urea Nitrogen 73mg/dL (7-20) 34mg/dL (7-20) 19mg/dL (7-20) Creatinine 7.8mg/dL (0.6-1.0) 4.7mg/dL (0.6-1.0) 3.1mg/dL (0.6-1.0) Estimated GFR (Cockcroft-Gault) 6.3 11.2 18.2 BUN/Creatinine Ratio 9 (6-20) Glucose Level 99mg/dL (70-99) 86mg/dL (70-99) 95mg/dL (70-99) Calcium Level 9.2mg/dL (8.5-10.1) 9.2mg/dL (8.5-10.1) 9.9mg/dL (8.5-10.1) Phosphorus Level 7.8mg/dL (2.6-4.7) 7.7mg/dL (2.6-4.7) 6.4mg/dL (2.6-4.7) Magnesium Level 2.5mg/dL (1.8-2.4) Total Bilirubin 0.5mg/dL (0.2-1.0) Aspartate Amino Transf (AST/SGOT) 11U/L (15-37) Alanine Aminotransferase (ALT/SGPT) 10U/L (14-59) Alkaline Phosphatase 618U/L (46-116) Total Protein 6.9g/dL (6.4-8.2) Albumin 3.3g/dL (3.4-5.0) 3.3g/dL (3.4-5.0) 3.4g/dL (3.4-5.0) Albumin/Globulin Ratio 0.9 (1.0-1.7) Lipase 190U/L (73-393) Serum Test, Qualitative Negative (NEG) Vitamin B12 Level 375pg/mL (211-946) Folic Acid (LAB) 10.6ng/mL (>3.0) Laboratory Tests Test 05/12/16 06:20 White Blood Count 9.1x10^3/uL (4.0-11.0) Red Blood Count 2.36x10^6/uL (3.50-5.40) Hemoglobin 7.5g/dL (12.0-15.5) Hematocrit 23.7% (36.0-47.0) Mean Corpuscular Volume 100fL (79-100) Mean Corpuscular Hemoglobin 32pg (25-35) Mean Corpuscular Hemoglobin Concent 32g/dL (31-37) Red Cell Distribution Width 21.0% (11.5-14.5) Platelet Count 198x10^3/uL (140-400) Sodium Level 139mmol/L (136-145) Potassium Level 4.5mmol/L (3.5-5.1) Chloride Level 100mmol/L (98-107) Carbon Dioxide Level 25mmol/L (21-32) Anion Gap 14 (6-14) Blood Urea Nitrogen 19mg/dL (7-20) Creatinine 3.1mg/dL (0.6-1.0) Estimated GFR (Cockcroft-Gault) 18.2 Glucose Level 95mg/dL (70-99) Calcium Level 9.9mg/dL (8.5-10.1) Phosphorus Level 6.4mg/dL (2.6-4.7) Albumin 3.4g/dL (3.4-5.0) Medications Current Medications Fentanyl Citrate (Fentanyl 2ml Vial) 50 mcg PRN Q15MIN PRN IV PAIN GREATER THAN 3/10 Last administered on 05/10/16 13:38; Start 05/10/16 at 12:30; Stop at 12:29; Status DC Nitroglycerin (Nitrostat) 0.4 mg PRN Q5MIN PRN SL CHEST PAIN Last administered on 05/10/16 12:55; Start 05/10/16 at 12:30 Lorazepam (Ativan) 1 mg 1X ONCE IV Last administered on 05/10/16 12:58; Start 05/10/16 at 12:45; Stop 05/10/16 at 12:46; Status DC Diltiazem HCl (Cardizem) 30 mg 1X ONCE PO ; Start 05/10/16 at 14:15; Stop 05/10 at 14:22; Status DC Diphenhydramine HCl (Benadryl) 25 mg 1X PRN PRN IV ITCHING Last administered on 05/10/16 14:58; Start 05/10/16 at 14:45; Stop 05/11/16 at 14:44; Status DC Diphenhydramine HCl (Benadryl) 25 mg 1X PRN PRN IV ITCHING Last administered on 05/10/16 15:09; Start 05/10/16 at 14:45; Stop 05/11/16 at 14:44; Status DC Info (PHARMACY MONITORING -- do not chart) 1 each PRN DAILY PRN MC SEE COMMENTS ; Start 05/10/16 at 14:45; Status UNV Info 1 each 1 each PRN DAILY PRN MC SEE COMMENTS; Start 05/10/16 at 14:45 Magnesium Sulfate/ Dextrose (Magnesium Sulfate PREMIX 2GM) 50 ml @ 25 mls/hr PRN DAILY PRN IV for Mag < 1.7 on am labs; Start 05/10/16 at 15:00 Darbepoetin Jude (Aranesp) 60 mcg WEEKLYHS SQ ; Start 05/10/16 at 21:00 Labetalol HCl (Normodyne) 10 mg PRN Q1HR PRN IVP SBP > 180 Last administered on 05/10/16 16:35; Start 05/10/16 at 15:15; Stop 05/11/16 at 15:14; Status DC Alprazolam (Xanax) 2 mg PRN TID PRN PO ANXIETY / AGITATION; Start 05/10/16 at 16:45; Stop 05/10/16 at 16:52; Status DC Amlodipine Besylate (Norvasc) 10 mg DAILY PO Last administered on 05/12/16 09: 08; Start 05/10/16 at 17:00 Hydralazine HCl (Apresoline) 50 mg TID PO Last administered on 05/12/16 09:07 ; Start 05/10/16 at 21:00 Ondansetron HCl (Zofran Odt) 4 mg PRN Q8HRS PRN PO NAUSEA Last administered on 05/11/16 17:55; Start 05/10/16 at 16:45 Oxycodone/ Acetaminophen (Percocet 7.5/ 325) 1 tab PRN Q8HRS PRN PO PAIN; Start 05/10/16 at 16:45 Metoprolol Succinate (Toprol Xl) 200 mg DAILY PO Last administered on 09:08; Start 05/10/16 at 17:00 Albuterol/ Ipratropium (Duoneb) 3 ml Q4HRS W/A NEB Last administered on 07:14; Start 05/10/16 at 18:00 Lorazepam (Ativan) 1 mg PRN Q4HRS PRN IV ANXIETY / AGITATION Last administered on 05/12/16 07:43; Start 05/10/16 at 16:45 Alprazolam (Xanax) 2 mg PRN Q8HRS PRN PO ANXIETY / AGITATION Last administered on 05/12/16 09:08; Start 05/10/16 at 16:52 Hydromorphone HCl (Dilaudid) 0.8 mg PRN Q2HR PRN IVP PAIN Last administered on 05/12/16 07:07; Start 05/10/16 at 19:15 Labetalol HCl (Normodyne) 10 mg PRN Q2HR PRN IVP HYPERTENSION, SEE COMMENTS Last administered on 05/11/16 22:01; Start 05/10/16 at 19:15 Enalaprilat (Vasotec) 1.25 mg 1X ONCE IV Last administered on 05/10/16 20:01 ; Start 05/10/16 at 19:15; Stop 05/10/16 at 19:16; Status DC Info (Do NOT chart on this placeholder) 1 each 1X ONCE MC ; Start 05/10/16 at 22:15; Stop 05/10/16 at 22:16; Status UNV Influenza Virus Vaccine Quadrival (Fluarix Quad [id number] Syringe) 0.5 ml ONCE ONCE VAX IM ; Start 05/11/16 at 09:00; Stop 05/11/16 at 09:04; Status DC Vitamin B Complex (Folbic Tablet) 1 tab DAILY PO Last administered on 09:07; Start 05/12/16 at 09:00 Folic Acid (Folic Acid) 1 mg DAILY PO Last administered on 05/12/16 09:07; Start 05/12/16 at 09:00 Lidocaine (Lidoderm) 1 patch DAILY TD Last administered on 05/12/16 09:09; Start 05/11/16 at 13:00 Pantoprazole Sodium 40 mg 40 mg DAILYAC PO Last administered on 05/12/16 09:07 ; Start 05/11/16 at 16:30 Sodium Chloride 1,000 ml @ 1,000 mls/hr Q1H PRN IV hypotension; Start 05/11/16 at 19:17; Stop 05/12/16 at 01:16; Status DC Sodium Chloride (Iv Sodium Chloride 0.9% 1000ml Bag) 1,000 ml @ 400 mls/hr Q2H30M PRN IV PATENCY; Start 05/11/16 at 19:17; Stop 05/12/16 at 07:16; Status DC Info (PHARMACY MONITORING -- do not chart) 1 each PRN DAILY PRN MC SEE COMMENTS ; Start 05/11/16 at 19:30; Status UNV Diphenhydramine HCl (Benadryl) 50 mg STK-MED ONCE .ROUTE Last administered on 19:37; Start 05/11/16 at 19:37; Stop 05/11/16 at 19:38; Status DC Lidocaine HCl (Xylocaine-Mpf 1% Vial) 2 ml STK-MED ONCE .ROUTE Last administered on 05/11/16 19:37; Start 05/11/16 at 19:37; Stop 05/11/16 at 19:38 ; Status DC Diphenhydramine HCl (Benadryl) 25 mg PRN Q6HRS PRN IVP ITCHING Last administered on 05/12/16 04:31; Start 05/12/16 at 04:30 Active Scripts Active Zofran Odt (Ondansetron) 4 Mg Tab.rapdis 1 Tab SL Q8HRS PRN Reported Percocet 7.5-325 Mg Tablet (Oxycodone/Acetaminophen) 1 Each Tablet 1 Tab PO PRN Q8HRS PRN Xanax (Alprazolam) 0.25 Mg Tablet 2 Mg PO TID PRN Metoprolol Succinate ( Xl ) (Metoprolol Succinate) 200 Mg Tab.er.24h 1 Tab PO DAILY Hydralazine Hcl 50 Mg Tablet 1 Tab PO TID Amlodipine Besylate 10 Mg Tablet 1 Tab PO DAILY Vitals/I & O Vital Sign - Last 24 Hours 05/11/16 05/11/16 05/11/16 05/11/16 10:01 11:55 13:19 14:00 Temp 98.7 98.7 Pulse 103 99 Resp B/P 167/111 167/111 Pulse Ox 98 87 87 O2 Delivery Nasal Cannula Nasal Cannula Nasal Cannula O2 Flow Rate 2.0 2.0 2.0 05/11/16 05/11/16 05/11/16 05/11/16 15:08 17:56 19:30 19:35 Temp 98.6 98.6 Pulse 97 Resp 18 B/P 145/101 Pulse Ox 99 98 O2 Delivery Nasal Cannula Nasal Cannula Nasal Cannula Nasal Cannula O2 Flow Rate 2.0 4.0 2.0 2.0 05/11/16 05/11/16 05/11/16 05/11/16 22:01 22:48 22:51 22:52 Temp 98.3 98.3 Pulse 88 94 94 Resp 18 B/P 164/110 176/117 176/117 Pulse Ox 97 97 O2 Delivery Nasal Cannula Nasal Cannula O2 Flow Rate 2.0 2.0 05/12/16 05/12/16 05/12/16 05/12/16 02:55 03:17 03:25 07:00 Temp 98.3 97.1 98.3 97.1 Pulse 99 106 Resp 20 18 B/P 161/119 176/118 Pulse Ox 97 95 95 98 O2 Delivery Nasal Cannula Nasal Cannula Nasal Cannula Nasal Cannula O2 Flow Rate 2.0 2.0 2.0 05/12/16 05/12/16 05/12/16 05/12/16 07:07 07:15 09:07 09:08 Pulse 106 106 B/P 176/118 176/118 Pulse Ox 95 98 O2 Delivery Nasal Cannula Nasal Cannula O2 Flow Rate 2.0 2.0 05/12/16 09:08 Pulse 106 B/P 176/118 Intake and Output 05/11/16 05/11/16 05/12/16 15:00 23:00 07:00 Intake Total 200 ml 840 ml Output Total 0 ml 0 ml Balance 200 ml 840 ml DOLORES SCHULTZ MD May 12, 2016 09:55
[2016-05-12] MEDS: LABETALOL 20 MG/4 ML DISP.SYRIN. IVP PRN (10:43)
--- NOTE | 2016-05-12 10:43 | PDOC ---
G I PROGRESS NOTE Subjective Upper abdominal discomfort maybe some better. Apparently tolerating diet. Some lateral lower abdominal complaints. Physical Exam Lungs clear. RRR Abdomen soft, not distended. Mild epigastric tenderness. Muscular tenderness both flanks, low. Review of Relevant I have reviewed the following items lynnette (where applicable) has been applied. Labs Laboratory Tests Test 05/10/16 12:00 05/11/16 08:03 05/12/16 06:20 White Blood Count 8.5x10^3/uL (4.0-11.0) 9.1x10^3/uL (4.0-11.0) Red Blood Count 2.34x10^6/uL (3.50-5.40) 2.36x10^6/uL (3.50-5.40) Hemoglobin 7.6g/dL (12.0-15.5) 7.3g/dL (12.0-15.5) 7.5g/dL (12.0-15.5) Hematocrit 23.3% (36.0-47.0) 23.7% (36.0-47.0) Mean Corpuscular Volume 100fL (79-100) 100fL (79-100) Mean Corpuscular Hemoglobin 33pg (25-35) 32pg (25-35) Mean Corpuscular Hemoglobin Concent 33g/dL (31-37) 32g/dL (31-37) Red Cell Distribution Width 20.4% (11.5-14.5) 21.0% (11.5-14.5) Platelet Count 242x10^3/uL (140-400) 198x10^3/uL (140-400) Neutrophils (%) (Auto) 82% (31-73) Lymphocytes (%) (Auto) 12% (24-48) Monocytes (%) (Auto) 4% (0-9) Eosinophils (%) (Auto) 2% (0-3) Basophils (%) (Auto) 1% (0-3) Neutrophils # (Auto) 7.0x10^3uL (1.8-7.7) Lymphocytes # (Auto) 1.0x10^3/uL (1.0-4.8) Monocytes # (Auto) 0.3x10^3/uL (0.0-1.1) Eosinophils # (Auto) 0.2x10^3/uL (0.0-0.7) Basophils # (Auto) 0.0x10^3/uL (0.0-0.2) Platelet Estimate Adequate (ADEQUATE) Polychromasia Slight Poikilocytosis Slight Anisocytosis Mod Macrocytosis Slight Sodium Level 143mmol/L (136-145) 141mmol/L (136-145) 139mmol/L (136-145) Potassium Level 6.1mmol/L (3.5-5.1) 5.1mmol/L (3.5-5.1) 4.5mmol/L (3.5-5.1) Chloride Level 104mmol/L (98-107) 101mmol/L (98-107) 100mmol/L (98-107) Carbon Dioxide Level 24mmol/L (21-32) 29mmol/L (21-32) 25mmol/L (21-32) Anion Gap 15 (6-14) 11 (6-14) 14 (6-14) Blood Urea Nitrogen 73mg/dL (7-20) 34mg/dL (7-20) 19mg/dL (7-20) Creatinine 7.8mg/dL (0.6-1.0) 4.7mg/dL (0.6-1.0) 3.1mg/dL (0.6-1.0) Estimated GFR (Cockcroft-Gault) 6.3 11.2 18.2 BUN/Creatinine Ratio 9 (6-20) Glucose Level 99mg/dL (70-99) 86mg/dL (70-99) 95mg/dL (70-99) Calcium Level 9.2mg/dL (8.5-10.1) 9.2mg/dL (8.5-10.1) 9.9mg/dL (8.5-10.1) Phosphorus Level 7.8mg/dL (2.6-4.7) 7.7mg/dL (2.6-4.7) 6.4mg/dL (2.6-4.7) Magnesium Level 2.5mg/dL (1.8-2.4) Total Bilirubin 0.5mg/dL (0.2-1.0) Aspartate Amino Transf (AST/SGOT) 11U/L (15-37) Alanine Aminotransferase (ALT/SGPT) 10U/L (14-59) Alkaline Phosphatase 618U/L (46-116) Total Protein 6.9g/dL (6.4-8.2) Albumin 3.3g/dL (3.4-5.0) 3.3g/dL (3.4-5.0) 3.4g/dL (3.4-5.0) Albumin/Globulin Ratio 0.9 (1.0-1.7) Lipase 190U/L (73-393) Serum Test, Qualitative Negative (NEG) Vitamin B12 Level 375pg/mL (211-946) Folic Acid (LAB) 10.6ng/mL (>3.0) Laboratory Tests Test 05/12/16 06:20 White Blood Count 9.1x10^3/uL (4.0-11.0) Red Blood Count 2.36x10^6/uL (3.50-5.40) Hemoglobin 7.5g/dL (12.0-15.5) Hematocrit 23.7% (36.0-47.0) Mean Corpuscular Volume 100fL (79-100) Mean Corpuscular Hemoglobin 32pg (25-35) Mean Corpuscular Hemoglobin Concent 32g/dL (31-37) Red Cell Distribution Width 21.0% (11.5-14.5) Platelet Count 198x10^3/uL (140-400) Sodium Level 139mmol/L (136-145) Potassium Level 4.5mmol/L (3.5-5.1) Chloride Level 100mmol/L (98-107) Carbon Dioxide Level 25mmol/L (21-32) Anion Gap 14 (6-14) Blood Urea Nitrogen 19mg/dL (7-20) Creatinine 3.1mg/dL (0.6-1.0) Estimated GFR (Cockcroft-Gault) 18.2 Glucose Level 95mg/dL (70-99) Calcium Level 9.9mg/dL (8.5-10.1) Phosphorus Level 6.4mg/dL (2.6-4.7) Albumin 3.4g/dL (3.4-5.0) Medications Current Medications Fentanyl Citrate (Fentanyl 2ml Vial) 50 mcg PRN Q15MIN PRN IV PAIN GREATER THAN 3/10 Last administered on 05/10/16 13:38; Start 05/10/16 at 12:30; Stop at 12:29; Status DC Nitroglycerin (Nitrostat) 0.4 mg PRN Q5MIN PRN SL CHEST PAIN Last administered on 05/10/16 12:55; Start 05/10/16 at 12:30 Lorazepam (Ativan) 1 mg 1X ONCE IV Last administered on 05/10/16 12:58; Start 05/10/16 at 12:45; Stop 05/10/16 at 12:46; Status DC Diltiazem HCl (Cardizem) 30 mg 1X ONCE PO ; Start 05/10/16 at 14:15; Stop 05/10 at 14:22; Status DC Diphenhydramine HCl (Benadryl) 25 mg 1X PRN PRN IV ITCHING Last administered on 05/10/16 14:58; Start 05/10/16 at 14:45; Stop 05/11/16 at 14:44; Status DC Diphenhydramine HCl (Benadryl) 25 mg 1X PRN PRN IV ITCHING Last administered on 05/10/16 15:09; Start 05/10/16 at 14:45; Stop 05/11/16 at 14:44; Status DC Info (PHARMACY MONITORING -- do not chart) 1 each PRN DAILY PRN MC SEE COMMENTS ; Start 05/10/16 at 14:45; Status UNV Info 1 each 1 each PRN DAILY PRN MC SEE COMMENTS; Start 05/10/16 at 14:45 Magnesium Sulfate/ Dextrose (Magnesium Sulfate PREMIX 2GM) 50 ml @ 25 mls/hr PRN DAILY PRN IV for Mag < 1.7 on am labs; Start 05/10/16 at 15:00 Darbepoetin Jude (Aranesp) 60 mcg WEEKLYHS SQ ; Start 05/10/16 at 21:00 Labetalol HCl (Normodyne) 10 mg PRN Q1HR PRN IVP SBP > 180 Last administered on 05/10/16 16:35; Start 05/10/16 at 15:15; Stop 05/11/16 at 15:14; Status DC Alprazolam (Xanax) 2 mg PRN TID PRN PO ANXIETY / AGITATION; Start 05/10/16 at 16:45; Stop 05/10/16 at 16:52; Status DC Amlodipine Besylate (Norvasc) 10 mg DAILY PO Last administered on 05/12/16 09: 08; Start 05/10/16 at 17:00 Hydralazine HCl (Apresoline) 50 mg TID PO Last administered on 05/12/16 09:07 ; Start 05/10/16 at 21:00 Ondansetron HCl (Zofran Odt) 4 mg PRN Q8HRS PRN PO NAUSEA Last administered on 05/11/16 17:55; Start 05/10/16 at 16:45 Oxycodone/ Acetaminophen (Percocet 7.5/ 325) 1 tab PRN Q8HRS PRN PO PAIN; Start 05/10/16 at 16:45 Metoprolol Succinate (Toprol Xl) 200 mg DAILY PO Last administered on 09:08; Start 05/10/16 at 17:00 Albuterol/ Ipratropium (Duoneb) 3 ml Q4HRS W/A NEB Last administered on 07:14; Start 05/10/16 at 18:00 Lorazepam (Ativan) 1 mg PRN Q4HRS PRN IV ANXIETY / AGITATION Last administered on 05/12/16 07:43; Start 05/10/16 at 16:45 Alprazolam (Xanax) 2 mg PRN Q8HRS PRN PO ANXIETY / AGITATION Last administered on 05/12/16 09:08; Start 05/10/16 at 16:52 Hydromorphone HCl (Dilaudid) 0.8 mg PRN Q2HR PRN IVP PAIN Last administered on 05/12/16 07:07; Start 05/10/16 at 19:15 Labetalol HCl (Normodyne) 10 mg PRN Q2HR PRN IVP HYPERTENSION, SEE COMMENTS Last administered on 05/11/16 22:01; Start 05/10/16 at 19:15 Enalaprilat (Vasotec) 1.25 mg 1X ONCE IV Last administered on 05/10/16 20:01 ; Start 05/10/16 at 19:15; Stop 05/10/16 at 19:16; Status DC Info (Do NOT chart on this placeholder) 1 each 1X ONCE MC ; Start 05/10/16 at 22:15; Stop 05/10/16 at 22:16; Status UNV Influenza Virus Vaccine Quadrival (Fluarix Quad [id number] Syringe) 0.5 ml ONCE ONCE VAX IM ; Start 05/11/16 at 09:00; Stop 05/11/16 at 09:04; Status DC Vitamin B Complex (Folbic Tablet) 1 tab DAILY PO Last administered on 09:07; Start 05/12/16 at 09:00 Folic Acid (Folic Acid) 1 mg DAILY PO Last administered on 05/12/16 09:07; Start 05/12/16 at 09:00 Lidocaine (Lidoderm) 1 patch DAILY TD Last administered on 05/12/16 09:09; Start 05/11/16 at 13:00 Pantoprazole Sodium 40 mg 40 mg DAILYAC PO Last administered on 05/12/16 09:07 ; Start 05/11/16 at 16:30 Sodium Chloride 1,000 ml @ 1,000 mls/hr Q1H PRN IV hypotension; Start 05/11/16 at 19:17; Stop 05/12/16 at 01:16; Status DC Sodium Chloride (Iv Sodium Chloride 0.9% 1000ml Bag) 1,000 ml @ 400 mls/hr Q2H30M PRN IV PATENCY; Start 05/11/16 at 19:17; Stop 05/12/16 at 07:16; Status DC Info (PHARMACY MONITORING -- do not chart) 1 each PRN DAILY PRN MC SEE COMMENTS ; Start 05/11/16 at 19:30; Status UNV Diphenhydramine HCl (Benadryl) 50 mg STK-MED ONCE .ROUTE Last administered on 19:37; Start 05/11/16 at 19:37; Stop 05/11/16 at 19:38; Status DC Lidocaine HCl (Xylocaine-Mpf 1% Vial) 2 ml STK-MED ONCE .ROUTE Last administered on 05/11/16 19:37; Start 05/11/16 at 19:37; Stop 05/11/16 at 19:38 ; Status DC Diphenhydramine HCl (Benadryl) 25 mg PRN Q6HRS PRN IVP ITCHING Last administered on 05/12/16t 04:31; Start 05/12/16 at 04:30 Active Scripts Active Zofran Odt (Ondansetron) 4 Mg Tab.rapdis 1 Tab SL Q8HRS PRN Reported Percocet 7.5-325 Mg Tablet (Oxycodone/Acetaminophen) 1 Each Tablet 1 Tab PO PRN Q8HRS PRN Xanax (Alprazolam) 0.25 Mg Tablet 2 Mg PO TID PRN Metoprolol Succinate ( Xl ) (Metoprolol Succinate) 200 Mg Tab.er.24h 1 Tab PO DAILY Hydralazine Hcl 50 Mg Tablet 1 Tab PO TID Amlodipine Besylate 10 Mg Tablet 1 Tab PO DAILY Vitals/I & O Vital Sign - Last 24 Hours 05/11/16 05/11/16 05/11/16 05/11/16 11:55 13:19 14:00 15:08 Temp 98.6 98.6 Pulse 99 97 Resp B/P 167/111 145/101 Pulse Ox 87 87 99 O2 Delivery Nasal Cannula Nasal Cannula Nasal Cannula O2 Flow Rate 2.0 2.0 2.0 05/11/16 05/11/16 05/11/16 05/11/16 17:56 19:30 19:35 22:01 Pulse 88 Resp 22 B/P 164/110 Pulse Ox 98 O2 Delivery Nasal Cannula Nasal Cannula Nasal Cannula O2 Flow Rate 4.0 2.0 2.0 05/11/16 05/11/16 05/11/16 05/12/16 22:48 22:51 22:52 02:55 Temp 98.3 98.3 Pulse 94 94 Resp 18 B/P 176/117 176/117 Pulse Ox 97 97 97 O2 Delivery Nasal Cannula Nasal Cannula Nasal Cannula O2 Flow Rate 2.0 2.0 2.0 05/12/16 05/12/16 05/12/16 05/12/16 03:17 03:25 07:00 07:07 Temp 98.3 97.1 98.3 97.1 Pulse 99 106 Resp 18 B/P 161/119 176/118 Pulse Ox 95 95 98 95 O2 Delivery Nasal Cannula Nasal Cannula Nasal Cannula Nasal Cannula O2 Flow Rate 2.0 2.0 2.0 05/12/16 05/12/16 05/12/16 05/12/16 07:15 09:07 09:08 09:08 Pulse 106 106 106 B/P 176/118 176/118 176/118 Pulse Ox 98 O2 Delivery Nasal Cannula O2 Flow Rate 2.0 Intake and Output 05/11/16 05/11/16 05/12/16 15:00 23:00 07:00 Intake Total 200 ml 840 ml Output Total 0 ml 0 ml Balance 200 ml 840 ml Problem List Problems Medical Problems: (1) Abdominal pain Status: Acute (2) ESRD (end stage renal disease) Status: Acute (3) Respiratory failure Status: Acute Assessment Dyspepsia/upper abdominal discomfort; seems to be responding some to PPI. Lower "abdominal" complaints seems perhaps musculoskeletal. Plan of Care: Continue current Tx, Mgmt AUNG SINGH MD May 12, 2016 10:43
[2016-05-12 11:00] VITALS: BP 146/111
[2016-05-12] MEDS ORDERED: LIDOCAINE 1% PF 2 ML VIAL. ID STA (11:32)
[2016-05-12] MEDS ORDERED: DIALYSIS PATIENT. MC PRN ×2 (11:45)
[2016-05-12] MEDS ORDERED: DIPHENHYDRAMINE 50 MG/ML VIAL IV PRN ×2 (11:45)
--- NOTE | 2016-05-12 13:09 | PDOC ---
Dialysis Progress Note Dialysis Note Dialysis Note Seen on Hemodialysis, tolerating treatment Well for wno Vitals on Hemodialysis: 134/99 96 afeb General Appearance: Awake: Alert Oriented x 3 Neck: No JVD or JVP Chest: CTA Kevin Heart: S1 S2 Abdomen - Soft NTND Extremities - No Edema ESRD: Dialysis as below F 180 NR 2:15 (per pt demand) Hrs 3 K 2.5 Ca 140 Na 35 HC03 Qb 350 + Qd 500+ Heparin 0 Units Uf 1 Kgs or to dry weight as tolerated May give 25-50 gms of 25% Albumin if needed to maintain Hemodynamic stability Treatment plan reviewed and discussed with high school librarian Vitals Vital Signs Vital Signs Date Time Temp Pulse Resp B/P Pulse Ox O2 Delivery O2 Flow Rate FiO2 05/12/16 11:09 Nasal Cannula 2.0 05/12/16 11:00 99.3 55 18 146/111 99 99.3 Labs Last Labs Laboratory Tests Test 05/11/16 08:03 05/12/16 06:20 Hemoglobin 7.3g/dL (12.0-15.5) 7.5g/dL (12.0-15.5) Sodium Level 141mmol/L (136-145) 139mmol/L (136-145) Potassium Level 5.1mmol/L (3.5-5.1) 4.5mmol/L (3.5-5.1) Chloride Level 101mmol/L (98-107) 100mmol/L (98-107) Carbon Dioxide Level 29mmol/L (21-32) 25mmol/L (21-32) Anion Gap 11 (6-14) 14 (6-14) Blood Urea Nitrogen 34mg/dL (7-20) 19mg/dL (7-20) Creatinine 4.7mg/dL (0.6-1.0) 3.1mg/dL (0.6-1.0) Estimated GFR (Cockcroft-Gault) 11.2 18.2 Glucose Level 86mg/dL (70-99) 95mg/dL (70-99) Calcium Level 9.2mg/dL (8.5-10.1) 9.9mg/dL (8.5-10.1) Phosphorus Level 7.7mg/dL (2.6-4.7) 6.4mg/dL (2.6-4.7) Albumin 3.3g/dL (3.4-5.0) 3.4g/dL (3.4-5.0) Vitamin B12 Level 375pg/mL (211-946) Folic Acid (LAB) 10.6ng/mL (>3.0) White Blood Count 9.1x10^3/uL (4.0-11.0) Red Blood Count 2.36x10^6/uL (3.50-5.40) Hematocrit 23.7% (36.0-47.0) Mean Corpuscular Volume 100fL (79-100) Mean Corpuscular Hemoglobin 32pg (25-35) Mean Corpuscular Hemoglobin Concent 32g/dL (31-37) Red Cell Distribution Width 21.0% (11.5-14.5) Platelet Count 198x10^3/uL (140-400) Laboratory Tests Test 05/12/16 06:20 White Blood Count 9.1x10^3/uL (4.0-11.0) Red Blood Count 2.36x10^6/uL (3.50-5.40) Hemoglobin 7.5g/dL (12.0-15.5) Hematocrit 23.7% (36.0-47.0) Mean Corpuscular Volume 100fL (79-100) Mean Corpuscular Hemoglobin 32pg (25-35) Mean Corpuscular Hemoglobin Concent 32g/dL (31-37) Red Cell Distribution Width 21.0% (11.5-14.5) Platelet Count 198x10^3/uL (140-400) Sodium Level 139mmol/L (136-145) Potassium Level 4.5mmol/L (3.5-5.1) Chloride Level 100mmol/L (98-107) Carbon Dioxide Level 25mmol/L (21-32) Anion Gap 14 (6-14) Blood Urea Nitrogen 19mg/dL (7-20) Creatinine 3.1mg/dL (0.6-1.0) Estimated GFR (Cockcroft-Gault) 18.2 Glucose Level 95mg/dL (70-99) Calcium Level 9.9mg/dL (8.5-10.1) Phosphorus Level 6.4mg/dL (2.6-4.7) Albumin 3.4g/dL (3.4-5.0) Assessment Assessment Problems Medical Problems: (1) Abdominal pain Status: Acute (2) ESRD (end stage renal disease) Status: Acute (3) Respiratory failure Status: Acute Problems: Plan Plan of Care Problems Medical Problems: (1) Abdominal pain Status: Acute (2) ESRD (end stage renal disease) Status: Acute (3) Respiratory failure Status: Acute VALERY SOARES MD May 12, 2016 13:09
--- NOTE | 2016-05-12 14:16 | CONS ---
DATE OF CONSULTATION: ATTENDING PHYSICIAN: Dr. Kenney. The patient was seen at the request of Dr. Kenney for rehab evaluation. LOCATION: She is in room 261. HISTORY OF PRESENT ILLNESS: This is a 26-year-old female had strep infection at age 9 and she had chronic renal failure and has been on hemodialysis for the last several years. 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 The patient also sustained fracture at pelvis and right femoral neck. She sustained around first week of February, she was at this medical center. We can see x-rays that showing intertrochanteric fracture neck of right femur and fracture pelvis and she apparently had surgery done at [facility] and got infected and had surgery again. She was told that she had total hip, but x-ray taken on 04/16/2016 at this facility revealed she does not have any femoral head or neck and her right femur is moving up almost like a Girdlestone. The patient was told she is supposed to be toe touch weightbearing for about 6 months and then she can walk afterwards using a built-up shoe. The patient also with known hypertension, anemia, anxiety, hyperparathyroidism, status post C-resection. The patient is KNOWN ALLERGIC TO SULFA AND HALDOL. The patient was admitted with abdominal pain and KUB and CT scan of the abdomen revealed anasarca, worsening pulmonary infiltrates suggesting pulmonary edema or pneumonia, increasing small right pleural effusion, small volume of ascites, unchanged since study done on 04/17 of this year, calcified atrophied kidneys and of course it revealed bones are generally sclerotic probably representing renal osteodystrophy, mild unchanged anterior wedging of L2 vertebral body. There is a slight spondylolisthesis at L5-S1 with underlying spondylolysis extent to arthritic changes at both sacroiliac joints. Old bilateral pubic bone fractures are again noted. There is also old nonhealed fracture of the proximal right femur involving the femoral neck and head with associated bone resorption and/or osteolysis, proximal femur ____ acetabulum. The patient admits chronic lower back pain without any radiation to the extremities and she denies any tingling and numbness sensation in the extremities. The patient lives with her parent and also 7-year-old daughter. They have two stairs to get into the house. She has been through home health therapy until earlier this month. PHYSICAL EXAMINATION: Today revealed young female patient in no acute distress. She is alert, oriented to time, place, person and circumstance and follows commands appropriately, moves all 4 extremities voluntarily where she had 4+/5 grade muscle strength and deep tendon reflexes are 1 to 2+ and symmetrical and she had equal perception of touch and pinprick sensation bilaterally. She had tenderness to palpation over thoracic and lumbar paraspinal muscles extending over to sacroiliac joint area and over right trochanteric bursa. She had pain free range of motion on both hip joints. She had shortening of right thigh by about at least 1 inch. The patient had ____ right hip area. Other than that, her skin is intact. She is using oxygen by nasal cannula. She is independent with bed mobility and transfers and one subsequent walk using a roller walker with toe touch weightbearing on her right foot. ASSESSMENT: The patient with end-stage renal disease, on hemodialysis after she had strep infection at 9 years old. The patient with radiological evidence of generalized sclerosis representing a renal osteodystrophy and Girdlestone arthroplasty of right hip, status post nonhealed fracture right femoral neck, which she sustained in 02/2016 with shortening deformity of her right thigh and chronic thoracic and lumbar area pain with radiological evidence of L2 vertebral body compression fracture and spondylolisthesis of L5 on S1 with underlying bilateral spondylolysis and extensive degenerative changes at both sacroiliac joints and also fracture of pelvis. RECOMMENDATION: To ask for physical therapy and occupational therapy to see, to ask for orthopedic advise about her right hip. She might be a candidate for right total hip arthroplasty. Dr. Kenney, I appreciate asking me to participate in care of this interesting patient. I will be glad to follow her with you as needed for her rehabilitation. DOLORES SCHULTZ MD DR: MILAGROS/phuc JOB#: [id number] / [id number]
--- NOTE | 2016-05-12 15:03 | PDOC ---
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, uremia, Met gap acidosis hyperkalemia, hyperphos anemia of CKD, macrocytic, check folic and b12 acute abd pain w/ nasuea, viral GI Accelerated HTN, Anxiety D/o, Home xanax and PRN ativan History of Present Illness History of Present Illness feels better today back pain, breathing much better, HD again today Vitals Vitals Vital Signs Date Time Temp Pulse Resp B/P Pulse Ox O2 Delivery O2 Flow Rate FiO2 05/12/16 11:09 Nasal Cannula 2.0 05/12/16 11:00 99.3 55 18 146/111 99 99.3 Physical Exam Physical Exam much better, able to eat some General: Alert, Cooperative, No acute distress, mild distress Lungs: Other (few rhonchi right lung) Abdomen: Normal bowel sounds, Soft, No tenderness Extremities: No clubbing, No cyanosis, Normal pulses, Other (Tr Le edema) Skin: No significant lesion Labs LABS Laboratory Tests Test 05/12/16 06:20 White Blood Count 9.1x10^3/uL (4.0-11.0) Red Blood Count 2.36x10^6/uL (3.50-5.40) Hemoglobin 7.5g/dL (12.0-15.5) Hematocrit 23.7% (36.0-47.0) Mean Corpuscular Volume 100fL (79-100) Mean Corpuscular Hemoglobin 32pg (25-35) Mean Corpuscular Hemoglobin Concent 32g/dL (31-37) Red Cell Distribution Width 21.0% (11.5-14.5) Platelet Count 198x10^3/uL (140-400) Sodium Level 139mmol/L (136-145) Potassium Level 4.5mmol/L (3.5-5.1) Chloride Level 100mmol/L (98-107) Carbon Dioxide Level 25mmol/L (21-32) Anion Gap 14 (6-14) Blood Urea Nitrogen 19mg/dL (7-20) Creatinine 3.1mg/dL (0.6-1.0) Estimated GFR (Cockcroft-Gault) 18.2 Glucose Level 95mg/dL (70-99) Calcium Level 9.9mg/dL (8.5-10.1) Phosphorus Level 6.4mg/dL (2.6-4.7) Albumin 3.4g/dL (3.4-5.0) Review of Systems Review of Systems some nausea, better back pain, DJD, Assessment and Plan Assessmemt and Plan Problems Medical Problems: (1) Abdominal pain Status: Acute (2) ESRD (end stage renal disease) Status: Acute (3) Respiratory failure Status: Acute Problems: Comment Review of Relevant I have reviewed the following items lynnette (where applicable) has been applied. Labs Laboratory Tests Test 05/11/16 08:03 05/12/16 06:20 Hemoglobin 7.3g/dL (12.0-15.5) 7.5g/dL (12.0-15.5) Sodium Level 141mmol/L (136-145) 139mmol/L (136-145) Potassium Level 5.1mmol/L (3.5-5.1) 4.5mmol/L (3.5-5.1) Chloride Level 101mmol/L (98-107) 100mmol/L (98-107) Carbon Dioxide Level 29mmol/L (21-32) 25mmol/L (21-32) Anion Gap 11 (6-14) 14 (6-14) Blood Urea Nitrogen 34mg/dL (7-20) 19mg/dL (7-20) Creatinine 4.7mg/dL (0.6-1.0) 3.1mg/dL (0.6-1.0) Estimated GFR (Cockcroft-Gault) 11.2 18.2 Glucose Level 86mg/dL (70-99) 95mg/dL (70-99) Calcium Level 9.2mg/dL (8.5-10.1) 9.9mg/dL (8.5-10.1) Phosphorus Level 7.7mg/dL (2.6-4.7) 6.4mg/dL (2.6-4.7) Albumin 3.3g/dL (3.4-5.0) 3.4g/dL (3.4-5.0) Vitamin B12 Level 375pg/mL (211-946) Folic Acid (LAB) 10.6ng/mL (>3.0) White Blood Count 9.1x10^3/uL (4.0-11.0) Red Blood Count 2.36x10^6/uL (3.50-5.40) Hematocrit 23.7% (36.0-47.0) Mean Corpuscular Volume 100fL (79-100) Mean Corpuscular Hemoglobin 32pg (25-35) Mean Corpuscular Hemoglobin Concent 32g/dL (31-37) Red Cell Distribution Width 21.0% (11.5-14.5) Platelet Count 198x10^3/uL (140-400) Laboratory Tests Test 05/12/16 06:20 White Blood Count 9.1x10^3/uL (4.0-11.0) Red Blood Count 2.36x10^6/uL (3.50-5.40) Hemoglobin 7.5g/dL (12.0-15.5) Hematocrit 23.7% (36.0-47.0) Mean Corpuscular Volume 100fL (79-100) Mean Corpuscular Hemoglobin 32pg (25-35) Mean Corpuscular Hemoglobin Concent 32g/dL (31-37) Red Cell Distribution Width 21.0% (11.5-14.5) Platelet Count 198x10^3/uL (140-400) Sodium Level 139mmol/L (136-145) Potassium Level 4.5mmol/L (3.5-5.1) Chloride Level 100mmol/L (98-107) Carbon Dioxide Level 25mmol/L (21-32) Anion Gap 14 (6-14) Blood Urea Nitrogen 19mg/dL (7-20) Creatinine 3.1mg/dL (0.6-1.0) Estimated GFR (Cockcroft-Gault) 18.2 Glucose Level 95mg/dL (70-99) Calcium Level 9.9mg/dL (8.5-10.1) Phosphorus Level 6.4mg/dL (2.6-4.7) Albumin 3.4g/dL (3.4-5.0) Medications Current Medications Fentanyl Citrate (Fentanyl 2ml Vial) 50 mcg PRN Q15MIN PRN IV PAIN GREATER THAN 3/10 Last administered on 05/10/16t 13:38; Start 05/10/16 at 12:30; Stop at 12:29; Status DC Nitroglycerin (Nitrostat) 0.4 mg PRN Q5MIN PRN SL CHEST PAIN Last administered on 05/10/16 12:55; Start 05/10/16 at 12:30 Lorazepam (Ativan) 1 mg 1X ONCE IV Last administered on 05/10/16 12:58; Start 05/10/16 at 12:45; Stop 05/10/16 at 12:46; Status DC Diltiazem HCl (Cardizem) 30 mg 1X ONCE PO ; Start 05/10/16 at 14:15; Stop 05/10 at 14:22; Status DC Diphenhydramine HCl (Benadryl) 25 mg 1X PRN PRN IV ITCHING Last administered on 05/10/16 14:58; Start 05/10/16 at 14:45; Stop 05/11/16 at 14:44; Status DC Diphenhydramine HCl (Benadryl) 25 mg 1X PRN PRN IV ITCHING Last administered on 05/10/16 15:09; Start 05/10/16 at 14:45; Stop 05/11/16 at 14:44; Status DC Info (PHARMACY MONITORING -- do not chart) 1 each PRN DAILY PRN MC SEE COMMENTS ; Start 05/10/16 at 14:45; Status UNV Info 1 each 1 each PRN DAILY PRN MC SEE COMMENTS; Start 05/10/16 at 14:45 Magnesium Sulfate/ Dextrose (Magnesium Sulfate PREMIX 2GM) 50 ml @ 25 mls/hr PRN DAILY PRN IV for Mag < 1.7 on am labs; Start 05/10/16 at 15:00 Darbepoetin Jude (Aranesp) 60 mcg WEEKLYHS SQ ; Start 05/10/16 at 21:00 Labetalol HCl (Normodyne) 10 mg PRN Q1HR PRN IVP SBP > 180 Last administered on 05/10/16 16:35; Start 05/10/16 at 15:15; Stop 05/11/16 at 15:14; Status DC Alprazolam (Xanax) 2 mg PRN TID PRN PO ANXIETY / AGITATION; Start 05/10/16 at 16:45; Stop 05/10/16 at 16:52; Status DC Amlodipine Besylate (Norvasc) 10 mg DAILY PO Last administered on 05/12/16 09: 08; Start 05/10/16 at 17:00 Hydralazine HCl (Apresoline) 50 mg TID PO Last administered on 05/12/16 09:07 ; Start 05/10/16 at 21:00 Ondansetron HCl (Zofran Odt) 4 mg PRN Q8HRS PRN PO NAUSEA Last administered on 05/11/16 17:55; Start 05/10/16 at 16:45 Oxycodone/ Acetaminophen (Percocet 7.5/ 325) 1 tab PRN Q8HRS PRN PO PAIN; Start 05/10/16 at 16:45 Metoprolol Succinate (Toprol Xl) 200 mg DAILY PO Last administered on 09:08; Start 05/10/16 at 17:00 Albuterol/ Ipratropium (Duoneb) 3 ml Q4HRS W/A NEB Last administered on 07:14; Start 05/10/16 at 18:00; Stop 05/12/16 at 11:33; Status DC Lorazepam (Ativan) 1 mg PRN Q4HRS PRN IV ANXIETY / AGITATION Last administered on 05/12/16 11:54; Start 05/10/16 at 16:45 Alprazolam (Xanax) 2 mg PRN Q8HRS PRN PO ANXIETY / AGITATION Last administered on 05/12/16 09:08; Start 05/10/16 at 16:52 Hydromorphone HCl (Dilaudid) 0.8 mg PRN Q2HR PRN IVP PAIN Last administered on 05/12/16 11:09; Start 05/10/16 at 19:15 Labetalol HCl (Normodyne) 10 mg PRN Q2HR PRN IVP HYPERTENSION, SEE COMMENTS Last administered on 05/12/16 10:43; Start 05/10/16 at 19:15 Enalaprilat (Vasotec) 1.25 mg 1X ONCE IV Last administered on 05/10/16 20:01 ; Start 05/10/16 at 19:15; Stop 05/10/16 at 19:16; Status DC Info (Do NOT chart on this placeholder) 1 each 1X ONCE MC ; Start 05/10/16 at 22:15; Stop 05/10/16 at 22:16; Status UNV Influenza Virus Vaccine Quadrival (Fluarix Quad [id number] Syringe) 0.5 ml ONCE ONCE VAX IM ; Start 05/11/16 at 09:00; Stop 05/11/16 at 09:04; Status DC Vitamin B Complex (Folbic Tablet) 1 tab DAILY PO Last administered on 09:07; Start 05/12/16 at 09:00 Folic Acid (Folic Acid) 1 mg DAILY PO Last administered on 05/12/16 09:07; Start 05/12/16 at 09:00 Lidocaine (Lidoderm) 1 patch DAILY TD Last administered on 05/12/16 09:09; Start 05/11/16 at 13:00 Pantoprazole Sodium 40 mg 40 mg DAILYAC PO Last administered on 05/12/16 09:07 ; Start 05/11/16 at 16:30 Sodium Chloride 1,000 ml @ 1,000 mls/hr Q1H PRN IV hypotension; Start 05/11/16 at 19:17; Stop 05/12/16 at 01:16; Status DC Sodium Chloride (Iv Sodium Chloride 0.9% 1000ml Bag) 1,000 ml @ 400 mls/hr Q2H30M PRN IV PATENCY; Start 05/11/16 at 19:17; Stop 05/12/16 at 07:16; Status DC Info (PHARMACY MONITORING -- do not chart) 1 each PRN DAILY PRN MC SEE COMMENTS ; Start 05/11/16 at 19:30; Status UNV Diphenhydramine HCl (Benadryl) 50 mg STK-MED ONCE .ROUTE Last administered on 19:37; Start 05/11/16 at 19:37; Stop 05/11/16 at 19:38; Status DC Lidocaine HCl (Xylocaine-Mpf 1% Vial) 2 ml STK-MED ONCE .ROUTE Last administered on 05/11/16 19:37; Start 05/11/16 at 19:37; Stop 05/11/16 at 19:38 ; Status DC Diphenhydramine HCl (Benadryl) 25 mg PRN Q6HRS PRN IVP ITCHING Last administered on 05/12/16 10:39; Start 05/12/16 at 04:30 Albuterol/ Ipratropium (Duoneb) 3 ml BID NEB ; Start 05/12/16 at 21:00 Lidocaine HCl (Xylocaine-Mpf 1% Vial) 1 ml 1X STAT ID ; Start 05/12/16 at 11:32 ; Stop 05/12/16 at 11:41; Status DC Diphenhydramine HCl (Benadryl) 25 mg 1X PRN PRN IV ITCHING; Start 05/12/16 at 11:45; Stop 05/13/16 at 11:44 Diphenhydramine HCl (Benadryl) 25 mg 1X PRN PRN IV ITCHING; Start 05/12/16 at 11:45; Stop 05/13/16 at 11:44 Info (PHARMACY MONITORING -- do not chart) 1 each PRN DAILY PRN MC SEE COMMENTS ; Start 05/12/16 at 11:45; Status UNV Info (PHARMACY MONITORING -- do not chart) 1 each PRN DAILY PRN MC SEE COMMENTS ; Start 05/12/16 at 11:45; Status UNV Calcium Acetate (Phoslo) 1,334 mg TIDWMEALS PO ; Start 05/12/16 at 17:00 Active Scripts Active Zofran Odt (Ondansetron) 4 Mg Tab.rapdis 1 Tab SL Q8HRS PRN Reported Percocet 7.5-325 Mg Tablet (Oxycodone/Acetaminophen) 1 Each Tablet 1 Tab PO PRN Q8HRS PRN Xanax (Alprazolam) 0.25 Mg Tablet 2 Mg PO TID PRN Metoprolol Succinate ( Xl ) (Metoprolol Succinate) 200 Mg Tab.er.24h 1 Tab PO DAILY Hydralazine Hcl 50 Mg Tablet 1 Tab PO TID Amlodipine Besylate 10 Mg Tablet 1 Tab PO DAILY Vitals/I & O Vital Sign - Last 24 Hours 05/11/16 05/11/16 05/11/16 05/11/16 15:08 17:56 19:30 19:35 Temp 98.6 98.6 Pulse 97 Resp 18 22 B/P 145/101 Pulse Ox 99 98 O2 Delivery Nasal Cannula Nasal Cannula Nasal Cannula Nasal Cannula O2 Flow Rate 2.0 4.0 2.0 2.0 05/11/16 05/11/16 05/11/16 05/11/16 22:01 22:48 22:51 22:52 Temp 98.3 98.3 Pulse 88 94 94 Resp 18 B/P 164/110 176/117 176/117 Pulse Ox 97 97 O2 Delivery Nasal Cannula Nasal Cannula O2 Flow Rate 2.0 2.0 05/12/16 05/12/16 05/12/16 05/12/16 02:55 03:17 03:25 07:00 Temp 98.3 97.1 98.3 97.1 Pulse 99 106 Resp 20 18 B/P 161/119 176/118 Pulse Ox 97 95 95 98 O2 Delivery Nasal Cannula Nasal Cannula Nasal Cannula Nasal Cannula O2 Flow Rate 2.0 2.0 2.0 05/12/16 05/12/16 05/12/16 05/12/16 07:07 07:15 08:00 09:07 Pulse 106 B/P 176/118 Pulse Ox 95 98 O2 Delivery Nasal Cannula Nasal Cannula Nasal Cannula O2 Flow Rate 2.0 2.0 2.0 05/12/16 05/12/16 05/12/16 05/12/16 09:08 09:08 10:43 11:00 Temp 99.3 99.3 Pulse 106 106 55 Resp 18 B/P 176/118 176/118 146/111 146/111 Pulse Ox 99 O2 Delivery Nasal Cannula O2 Flow Rate 2.0 05/12/16 11:09 O2 Delivery Nasal Cannula O2 Flow Rate 2.0 Intake and Output 05/11/16 05/11/16 05/12/16 15:00 23:00 07:00 Intake Total 200 ml 840 ml Output Total 0 ml 0 ml Balance 200 ml 840 ml DIONICIO TIMMONS MD May 12, 2016 15:03
[2016-05-12 15:15] VITALS: BP 143/103
[2016-05-12] MEDS: ACETAMINOPHEN 325 MG TABLET. PO PRN (15:27)
[2016-05-12] MEDS: CALCIUM ACETATE 667 MG CAPSULE PO SCH (16:45)
[2016-05-12 19:00] VITALS: BP 122/96
[2016-05-12 23:00] VITALS: BP 156/111
[2016-05-13] MEDS: LORAZEPAM 2 MG/ML VIAL IV PRN ×6 (00:08→20:17)
[2016-05-13 03:06] VITALS: BP 143/106
[2016-05-13 03:07] VITALS: BP 143/106
[2016-05-13] MEDS: HYDROMORPHONE 2 MG/ML VIAL. IVP PRN ×5 (03:23→20:17)
[2016-05-13] MEDS: DIPHENHYDRAMINE 50 MG/ML VIAL IVP PRN ×3 (04:06→17:25)
[2016-05-13] MEDS ORDERED: LIDOCAINE 1% PF 2 ML VIAL. ID ONE (07:45)
[2016-05-13 08:54] LABS: ALBUMIN 3.3 g/dL (3.4-5.0); CALCIUM 9.3 mg/dL (8.5-10.1); CREATININE 2.5 mg/dL (0.6-1.0); GFR 23.3; PHOSPHORUS 4.8 mg/dL (2.6-4.7); POTASSIUM 4.3 mmol/L (3.5-5.1)
[2016-05-13] MEDS: IPRATRPIUM/ALBUTEROL 0.5/2.5MG 3 ML NEBU. NEB SCH (09:00)
[2016-05-13] MEDS: LIDOCAINE (700MG/PATCH) PATCH. TD SCH (09:00)
--- NOTE | 2016-05-13 09:08 | PDOC ---
Dialysis Progress Note Dialysis Note Dialysis Note Seen on Hemodialysis, tolerating treatment Well for now Vitals on Hemodialysis: 181/100 100 afeb General Appearance: Awake: Alert Oriented x 3 Neck: No JVD or JVP Chest: CTA Kevin Heart: S1 S2 Abdomen - Soft NTND Extremities - No Edema ESRD: Dialysis as below F 180 NR 2:30 Hrs 3 K 2.5 Ca 140 Na 35 HC03 Qb 350 + Qd 500+ Heparin 0 Units Uf 2 Kgs or to dry weight as tolerated May give 25-50 gms of 25% Albumin if needed to maintain Hemodynamic stability Treatment plan reviewed and discussed with car pre cooler Vitals Vital Signs Vital Signs Date Time Temp Pulse Resp B/P Pulse Ox O2 Delivery O2 Flow Rate FiO2 05/13/16 07:54 Nasal Cannula 2.0 05/13/16 07:23 95 05/13/16 03:07 97.9 95 20 143/106 97.9 Labs Last Labs Laboratory Tests Test 05/12/16 06:20 05/13/16 08:30 White Blood Count 9.1x10^3/uL (4.0-11.0) Red Blood Count 2.36x10^6/uL (3.50-5.40) Hemoglobin 7.5g/dL (12.0-15.5) Hematocrit 23.7% (36.0-47.0) Mean Corpuscular Volume 100fL (79-100) Mean Corpuscular Hemoglobin 32pg (25-35) Mean Corpuscular Hemoglobin Concent 32g/dL (31-37) Red Cell Distribution Width 21.0% (11.5-14.5) Platelet Count 198x10^3/uL (140-400) Sodium Level 139mmol/L (136-145) 141mmol/L (136-145) Potassium Level 4.5mmol/L (3.5-5.1) 4.3mmol/L (3.5-5.1) Chloride Level 100mmol/L (98-107) 99mmol/L (98-107) Carbon Dioxide Level 25mmol/L (21-32) 30mmol/L (21-32) Anion Gap 14 (6-14) 12 (6-14) Blood Urea Nitrogen 19mg/dL (7-20) 22mg/dL (7-20) Creatinine 3.1mg/dL (0.6-1.0) 2.5mg/dL (0.6-1.0) Estimated GFR (Cockcroft-Gault) 18.2 23.3 Glucose Level 95mg/dL (70-99) 99mg/dL (70-99) Calcium Level 9.9mg/dL (8.5-10.1) 9.3mg/dL (8.5-10.1) Phosphorus Level 6.4mg/dL (2.6-4.7) 4.8mg/dL (2.6-4.7) Albumin 3.4g/dL (3.4-5.0) 3.3g/dL (3.4-5.0) Laboratory Tests Test 05/13/16 08:30 Sodium Level 141mmol/L (136-145) Potassium Level 4.3mmol/L (3.5-5.1) Chloride Level 99mmol/L (98-107) Carbon Dioxide Level 30mmol/L (21-32) Anion Gap 12 (6-14) Blood Urea Nitrogen 22mg/dL (7-20) Creatinine 2.5mg/dL (0.6-1.0) Estimated GFR (Cockcroft-Gault) 23.3 Glucose Level 99mg/dL (70-99) Calcium Level 9.3mg/dL (8.5-10.1) Phosphorus Level 4.8mg/dL (2.6-4.7) Albumin 3.3g/dL (3.4-5.0) Assessment Assessment Problems Medical Problems: (1) Abdominal pain Status: Acute (2) ESRD (end stage renal disease) Status: Acute (3) Respiratory failure Status: Acute Problems: Plan Plan of Care Problems Medical Problems: (1) Abdominal pain Status: Acute (2) ESRD (end stage renal disease) Status: Acute (3) Respiratory failure Status: Acute VALERY SOARES MD May 13, 2016 09:08
[2016-05-13] MEDS ORDERED: IV NORMAL SALINE 1000ML BAG 1,000 ML IV PRN (09:17)
[2016-05-13] MEDS ORDERED: DIPHENHYDRAMINE 50 MG/ML VIAL IV PRN ×2 (09:30)
[2016-05-13] MEDS ORDERED: DIALYSIS PATIENT. MC PRN ×2 (09:30)
--- NOTE | 2016-05-13 09:54 | PDOC ---
PROGRESS NOTES Chief Complaint Chief Complaint 1. Acute hypoxic respiratory failure 2. Fluid overload 3. CHF 4. Uremia 5. Met gap acidosis 6. Hyperkalemia 7. Hyperphosatemia 8. Anemia of CKD 9. Acute Abd Pain with nausea 10. Viral GI 11. HTN 12. Anxiety 13. ESRD 14. Hemodialysis for past 3 years 15. Hyperparathyroidism History of Present Illness History of Present Illness Pt resting with NAD while receiving dialysis Pt feeling better today Discussed that pt had R hip surgery 2.5 months ago and will be having another one next week as an outpatient Possible D/C tomorrow if ok with subspecialties VSS DW RN Vitals Vitals Vital Signs Date Time Temp Pulse Resp B/P Pulse Ox O2 Delivery O2 Flow Rate FiO2 05/13/16 07:54 Nasal Cannula 2.0 05/13/16 07:23 95 05/13/16 03:07 97.9 95 20 143/106 97.9 Physical Exam General: Alert, Cooperative, No acute distress, mild distress Heart: Regular rate, No murmurs Lungs: Clear, Other (No wheezing) Abdomen: Normal bowel sounds, Soft, No tenderness Extremities: No clubbing, No cyanosis, Normal pulses, Other (Tr Le edema) Skin: No rashes, No significant lesion Labs LABS Laboratory Tests Test 05/13/16 08:30 Sodium Level 141mmol/L (136-145) Potassium Level 4.3mmol/L (3.5-5.1) Chloride Level 99mmol/L (98-107) Carbon Dioxide Level 30mmol/L (21-32) Anion Gap 12 (6-14) Blood Urea Nitrogen 22mg/dL (7-20) Creatinine 2.5mg/dL (0.6-1.0) Estimated GFR (Cockcroft-Gault) 23.3 Glucose Level 99mg/dL (70-99) Calcium Level 9.3mg/dL (8.5-10.1) Phosphorus Level 4.8mg/dL (2.6-4.7) Albumin 3.3g/dL (3.4-5.0) Review of Systems Review of Systems Complains of fatigue Complains of weakness Assessment and Plan Assessmemt and Plan Problems Medical Problems: (1) Abdominal pain Status: Acute (2) ESRD (end stage renal disease) Status: Acute (3) Respiratory failure Status: Acute Assessment: 1. Acute hypoxic respiratory failure 2. Fluid overload 3. CHF 4. Uremia 5. Met gap acidosis 6. Hyperkalemia 7. Hyperphosatemia 8. Anemia of CKD 9. Acute Abd Pain with nausea 10. Viral GI 11. HTN 12. Anxiety 13. ESRD 14. Hemodialysis for past 3 years 15. Hyperparathyroidism Plan: Possible D/C if ok with subspecialties Await further input from Ortho regarding R hip Recheck labs PTOT Continue home meds Appreciate subspecialty input Problems: Comment Review of Relevant I have reviewed the following items lynnette (where applicable) has been applied. Labs Laboratory Tests Test 05/12/16 06:20 05/13/16 08:30 White Blood Count 9.1x10^3/uL (4.0-11.0) Red Blood Count 2.36x10^6/uL (3.50-5.40) Hemoglobin 7.5g/dL (12.0-15.5) Hematocrit 23.7% (36.0-47.0) Mean Corpuscular Volume 100fL (79-100) Mean Corpuscular Hemoglobin 32pg (25-35) Mean Corpuscular Hemoglobin Concent 32g/dL (31-37) Red Cell Distribution Width 21.0% (11.5-14.5) Platelet Count 198x10^3/uL (140-400) Sodium Level 139mmol/L (136-145) 141mmol/L (136-145) Potassium Level 4.5mmol/L (3.5-5.1) 4.3mmol/L (3.5-5.1) Chloride Level 100mmol/L (98-107) 99mmol/L (98-107) Carbon Dioxide Level 25mmol/L (21-32) 30mmol/L (21-32) Anion Gap 14 (6-14) 12 (6-14) Blood Urea Nitrogen 19mg/dL (7-20) 22mg/dL (7-20) Creatinine 3.1mg/dL (0.6-1.0) 2.5mg/dL (0.6-1.0) Estimated GFR (Cockcroft-Gault) 18.2 23.3 Glucose Level 95mg/dL (70-99) 99mg/dL (70-99) Calcium Level 9.9mg/dL (8.5-10.1) 9.3mg/dL (8.5-10.1) Phosphorus Level 6.4mg/dL (2.6-4.7) 4.8mg/dL (2.6-4.7) Albumin 3.4g/dL (3.4-5.0) 3.3g/dL (3.4-5.0) Laboratory Tests Test 05/13/16 08:30 Sodium Level 141mmol/L (136-145) Potassium Level 4.3mmol/L (3.5-5.1) Chloride Level 99mmol/L (98-107) Carbon Dioxide Level 30mmol/L (21-32) Anion Gap 12 (6-14) Blood Urea Nitrogen 22mg/dL (7-20) Creatinine 2.5mg/dL (0.6-1.0) Estimated GFR (Cockcroft-Gault) 23.3 Glucose Level 99mg/dL (70-99) Calcium Level 9.3mg/dL (8.5-10.1) Phosphorus Level 4.8mg/dL (2.6-4.7) Albumin 3.3g/dL (3.4-5.0) Medications Current Medications Fentanyl Citrate (Fentanyl 2ml Vial) 50 mcg PRN Q15MIN PRN IV PAIN GREATER THAN 3/10 Last administered on 05/10/16 13:38; Start 05/10/16 at 12:30; Stop at 12:29; Status DC Nitroglycerin (Nitrostat) 0.4 mg PRN Q5MIN PRN SL CHEST PAIN Last administered on 05/10/16 12:55; Start 05/10/16 at 12:30 Lorazepam (Ativan) 1 mg 1X ONCE IV Last administered on 05/10/16 12:58; Start 05/10/16 at 12:45; Stop 05/10/16 at 12:46; Status DC Diltiazem HCl (Cardizem) 30 mg 1X ONCE PO ; Start 05/10/16 at 14:15; Stop 05/10 at 14:22; Status DC Diphenhydramine HCl (Benadryl) 25 mg 1X PRN PRN IV ITCHING Last administered on 05/10/16 14:58; Start 05/10/16 at 14:45; Stop 05/11/16 at 14:44; Status DC Diphenhydramine HCl (Benadryl) 25 mg 1X PRN PRN IV ITCHING Last administered on 05/10/16 15:09; Start 05/10/16 at 14:45; Stop 05/11/16 at 14:44; Status DC Info (PHARMACY MONITORING -- do not chart) 1 each PRN DAILY PRN MC SEE COMMENTS ; Start 05/10/16 at 14:45; Status UNV Info 1 each 1 each PRN DAILY PRN MC SEE COMMENTS; Start 05/10/16 at 14:45 Magnesium Sulfate/ Dextrose (Magnesium Sulfate PREMIX 2GM) 50 ml @ 25 mls/hr PRN DAILY PRN IV for Mag < 1.7 on am labs; Start 05/10/16 at 15:00 Darbepoetin Jude (Aranesp) 60 mcg WEEKLYHS SQ ; Start 05/10/16 at 21:00 Labetalol HCl (Normodyne) 10 mg PRN Q1HR PRN IVP SBP > 180 Last administered on 05/10/16 16:35; Start 05/10/16 at 15:15; Stop 05/11/16 at 15:14; Status DC Alprazolam (Xanax) 2 mg PRN TID PRN PO ANXIETY / AGITATION; Start 05/10/16 at 16:45; Stop 05/10/16 at 16:52; Status DC Amlodipine Besylate (Norvasc) 10 mg DAILY PO Last administered on 05/12/16 09: 08; Start 05/10/16 at 17:00 Hydralazine HCl (Apresoline) 50 mg TID PO Last administered on 05/12/16 20:10 ; Start 05/10/16 at 21:00 Ondansetron HCl (Zofran Odt) 4 mg PRN Q8HRS PRN PO NAUSEA Last administered on 05/11/16 17:55; Start 05/10/16 at 16:45 Oxycodone/ Acetaminophen (Percocet 7.5/ 325) 1 tab PRN Q8HRS PRN PO PAIN; Start 05/10/16 at 16:45 Metoprolol Succinate (Toprol Xl) 200 mg DAILY PO Last administered on 09:08; Start 05/10/16 at 17:00 Albuterol/ Ipratropium (Duoneb) 3 ml Q4HRS W/A NEB Last administered on 07:14; Start 05/10/16 at 18:00; Stop 05/12/16 at 11:33; Status DC Lorazepam (Ativan) 1 mg PRN Q4HRS PRN IV ANXIETY / AGITATION Last administered on 05/13/16 08:29; Start 05/10/16 at 16:45 Alprazolam (Xanax) 2 mg PRN Q8HRS PRN PO ANXIETY / AGITATION Last administered on 05/12/16 09:08; Start 05/10/16 at 16:52 Hydromorphone HCl (Dilaudid) 0.8 mg PRN Q2HR PRN IVP PAIN Last administered on 05/13/16 07:54; Start 05/10/16 at 19:15 Labetalol HCl (Normodyne) 10 mg PRN Q2HR PRN IVP HYPERTENSION, SEE COMMENTS Last administered on 05/12/16 10:43; Start 05/10/16 at 19:15 Enalaprilat (Vasotec) 1.25 mg 1X ONCE IV Last administered on 05/10/16 20:01 ; Start 05/10/16 at 19:15; Stop 05/10/16 at 19:16; Status DC Info (Do NOT chart on this placeholder) 1 each 1X ONCE MC ; Start 05/10/16 at 22:15; Stop 05/10/16 at 22:16; Status UNV Influenza Virus Vaccine Quadrival (Fluarix Quad 9109-0629 Syringe) 0.5 ml ONCE ONCE VAX IM ; Start 05/11/16 at 09:00; Stop 05/11/16 at 09:04; Status DC Vitamin B Complex (Folbic Tablet) 1 tab DAILY PO Last administered on 09:07; Start 05/12/16 at 09:00 Folic Acid (Folic Acid) 1 mg DAILY PO Last administered on 05/12/16 09:07; Start 05/12/16 at 09:00 Lidocaine (Lidoderm) 1 patch DAILY TD Last administered on 05/12/16 09:09; Start 05/11/16 at 13:00 Pantoprazole Sodium 40 mg 40 mg DAILYAC PO Last administered on 05/12/16 09:07 ; Start 05/11/16 at 16:30 Sodium Chloride 1,000 ml @ 1,000 mls/hr Q1H PRN IV hypotension; Start 05/11/16 at 19:17; Stop 05/12/16 at 01:16; Status DC Sodium Chloride (Iv Sodium Chloride 0.9% 1000ml Bag) 1,000 ml @ 400 mls/hr Q2H30M PRN IV PATENCY; Start 05/11/16 at 19:17; Stop 05/12/16 at 07:16; Status DC Info (PHARMACY MONITORING -- do not chart) 1 each PRN DAILY PRN MC SEE COMMENTS ; Start 05/11/16 at 19:30; Status UNV Diphenhydramine HCl (Benadryl) 50 mg STK-MED ONCE .ROUTE Last administered on 19:37; Start 05/11/16 at 19:37; Stop 05/11/16 at 19:38; Status DC Lidocaine HCl (Xylocaine-Mpf 1% Vial) 2 ml STK-MED ONCE .ROUTE Last administered on 05/11/16 19:37; Start 05/11/16 at 19:37; Stop 05/11/16 at 19:38 ; Status DC Diphenhydramine HCl (Benadryl) 25 mg PRN Q6HRS PRN IVP ITCHING Last administered on 05/13/16 04:06; Start 05/12/16 at 04:30 Albuterol/ Ipratropium (Duoneb) 3 ml BID NEB ; Start 05/12/16 at 21:00 Lidocaine HCl (Xylocaine-Mpf 1% Vial) 1 ml 1X STAT ID ; Start 05/12/16 at 11:32 ; Stop 05/12/16 at 11:41; Status DC Diphenhydramine HCl (Benadryl) 25 mg 1X PRN PRN IV ITCHING; Start 05/12/16 at 11:45; Stop 05/13/16 at 11:44 Diphenhydramine HCl (Benadryl) 25 mg 1X PRN PRN IV ITCHING; Start 05/12/16 at 11:45; Stop 05/13/16 at 11:44 Info (PHARMACY MONITORING -- do not chart) 1 each PRN DAILY PRN MC SEE COMMENTS ; Start 05/12/16 at 11:45; Status UNV Info (PHARMACY MONITORING -- do not chart) 1 each PRN DAILY PRN MC SEE COMMENTS ; Start 05/12/16 at 11:45; Status UNV Calcium Acetate (Phoslo) 1,334 mg TIDWMEALS PO Last administered on 05/12/16 16:45; Start 05/12/16 at 17:00 Acetaminophen (Tylenol) 650 mg PRN Q6HRS PRN PO MILD PAIN / TEMP Last administered on 05/12/16t 15:27; Start 05/12/16 at 15:30 Lidocaine HCl 1 ml 1 ml 1X ONCE ID ; Start 05/13/16 at 07:45; Stop 05/13/16 at 07:46; Status DC Sodium Chloride (Iv Sodium Chloride 0.9% 1000ml Bag) 1,000 ml @ 1,000 mls/hr Q1H PRN IV hypotension; Start 05/13/16 at 09:17; Stop 05/13/16 at 15:16 Diphenhydramine HCl (Benadryl) 25 mg 1X PRN PRN IV ITCHING; Start 05/13/16 at 09:30; Stop 05/14/16 at 09:29 Diphenhydramine HCl (Benadryl) 25 mg 1X PRN PRN IV ITCHING; Start 05/13/16 at 09:30; Stop 05/14/16 at 09:29 Info (PHARMACY MONITORING -- do not chart) 1 each PRN DAILY PRN MC SEE COMMENTS ; Start 05/13/16 at 09:30; Status UNV Info (PHARMACY MONITORING -- do not chart) 1 each PRN DAILY PRN MC SEE COMMENTS ; Start 05/13/16 at 09:30; Status UNV Active Scripts Active Zofran Odt (Ondansetron) 4 Mg Tab.rapdis 1 Tab SL Q8HRS PRN Reported Percocet 7.5-325 Mg Tablet (Oxycodone/Acetaminophen) 1 Each Tablet 1 Tab PO PRN Q8HRS PRN Xanax (Alprazolam) 0.25 Mg Tablet 2 Mg PO TID PRN Metoprolol Succinate ( Xl ) (Metoprolol Succinate) 200 Mg Tab.er.24h 1 Tab PO DAILY Hydralazine Hcl 50 Mg Tablet 1 Tab PO TID Amlodipine Besylate 10 Mg Tablet 1 Tab PO DAILY Vitals/I & O Vital Sign - Last 24 Hours 05/12/16 05/12/16 05/12/16 05/12/16 10:43 11:00 11:09 15:14 Temp 99.3 99.3 Pulse 55 Resp 18 B/P 146/111 146/111 Pulse Ox 99 99 O2 Delivery Nasal Cannula Nasal Cannula Nasal Cannula O2 Flow Rate 2.0 2.0 2.0 05/12/16 05/12/16 05/12/16 05/12/16 15:15 15:28 19:00 19:13 Temp 100.2 100.9 100.2 100.9 Pulse 104 104 101 Resp 18 20 B/P 143/103 143/103 122/96 Pulse Ox 96 98 96 O2 Delivery Nasal Cannula Nasal Cannula Nasal Cannula O2 Flow Rate 2.0 2.0 05/12/16 05/12/16 05/12/16 05/12/16 20:00 20:10 23:00 23:17 Temp 98.7 98.7 Pulse 101 102 Resp 20 B/P 122/96 156/111 Pulse Ox 95 95 O2 Delivery Nasal Cannula Nasal Cannula Nasal Cannula O2 Flow Rate 2.0 2.0 05/13/16 05/13/16 05/13/16 05/13/16 03:06 03:07 03:23 03:53 Temp 97.9 97.9 97.9 97.9 Pulse 95 Resp 20 B/P 143/106 143/106 Pulse Ox 96 96 96 O2 Delivery Nasal Cannula Nasal Cannula Nasal Cannula O2 Flow Rate 2.0 2.0 05/13/16 05/13/16 07:23 07:54 Pulse Ox 95 O2 Delivery Room Air Nasal Cannula O2 Flow Rate 2.0 Intake and Output 05/12/16 05/12/16 05/13/16 15:00 23:00 07:00 Intake Total 0 ml 1080 ml Balance 0 ml 1080 ml KINGSLEY EVERETT III DO May 13, 2016 09:54
--- NOTE | 2016-05-13 10:40 | PDOC ---
PROGRESS NOTES Subjective Subjective She feels better. Objective Objective Vital Signs Date Time Temp Pulse Resp B/P Pulse Ox O2 Delivery O2 Flow Rate FiO2 05/13/16 07:54 Nasal Cannula 2.0 05/13/16 07:23 95 05/13/16 03:07 97.9 95 20 143/106 97.9 Intake and Output 05/13/16 07:00 Intake Total 1080 ml Balance 1080 ml Intake Oral 1080 ml Physical Exam Physical Exam She is supine on dialysis table and she admits back pain is easing to some extent. Assessment Assessment Problems Medical Problems: (1) Abdominal pain Status: Acute (2) ESRD (end stage renal disease) Status: Acute (3) Respiratory failure Status: Acute Plan Plan of Care Appreciate 's help. Comment Review of Relevant I have reviewed the following items lynnette (where applicable) has been applied. Labs Laboratory Tests Test 05/12/16 06:20 05/13/16 08:30 White Blood Count 9.1x10^3/uL (4.0-11.0) Red Blood Count 2.36x10^6/uL (3.50-5.40) Hemoglobin 7.5g/dL (12.0-15.5) Hematocrit 23.7% (36.0-47.0) Mean Corpuscular Volume 100fL (79-100) Mean Corpuscular Hemoglobin 32pg (25-35) Mean Corpuscular Hemoglobin Concent 32g/dL (31-37) Red Cell Distribution Width 21.0% (11.5-14.5) Platelet Count 198x10^3/uL (140-400) Sodium Level 139mmol/L (136-145) 141mmol/L (136-145) Potassium Level 4.5mmol/L (3.5-5.1) 4.3mmol/L (3.5-5.1) Chloride Level 100mmol/L (98-107) 99mmol/L (98-107) Carbon Dioxide Level 25mmol/L (21-32) 30mmol/L (21-32) Anion Gap 14 (6-14) 12 (6-14) Blood Urea Nitrogen 19mg/dL (7-20) 22mg/dL (7-20) Creatinine 3.1mg/dL (0.6-1.0) 2.5mg/dL (0.6-1.0) Estimated GFR (Cockcroft-Gault) 18.2 23.3 Glucose Level 95mg/dL (70-99) 99mg/dL (70-99) Calcium Level 9.9mg/dL (8.5-10.1) 9.3mg/dL (8.5-10.1) Phosphorus Level 6.4mg/dL (2.6-4.7) 4.8mg/dL (2.6-4.7) Albumin 3.4g/dL (3.4-5.0) 3.3g/dL (3.4-5.0) Laboratory Tests Test 05/13/16 08:30 Sodium Level 141mmol/L (136-145) Potassium Level 4.3mmol/L (3.5-5.1) Chloride Level 99mmol/L (98-107) Carbon Dioxide Level 30mmol/L (21-32) Anion Gap 12 (6-14) Blood Urea Nitrogen 22mg/dL (7-20) Creatinine 2.5mg/dL (0.6-1.0) Estimated GFR (Cockcroft-Gault) 23.3 Glucose Level 99mg/dL (70-99) Calcium Level 9.3mg/dL (8.5-10.1) Phosphorus Level 4.8mg/dL (2.6-4.7) Albumin 3.3g/dL (3.4-5.0) Medications Current Medications Fentanyl Citrate (Fentanyl 2ml Vial) 50 mcg PRN Q15MIN PRN IV PAIN GREATER THAN 3/10 Last administered on 05/10/16 13:38; Start 05/10/16 at 12:30; Stop at 12:29; Status DC Nitroglycerin (Nitrostat) 0.4 mg PRN Q5MIN PRN SL CHEST PAIN Last administered on 05/10/16 12:55; Start 05/10/16 at 12:30 Lorazepam (Ativan) 1 mg 1X ONCE IV Last administered on 05/10/16 12:58; Start 05/10/16 at 12:45; Stop 05/10/16 at 12:46; Status DC Diltiazem HCl (Cardizem) 30 mg 1X ONCE PO ; Start 05/10/16 at 14:15; Stop 05/10 at 14:22; Status DC Diphenhydramine HCl (Benadryl) 25 mg 1X PRN PRN IV ITCHING Last administered on 05/10/16 14:58; Start 05/10/16 at 14:45; Stop 05/11/16 at 14:44; Status DC Diphenhydramine HCl (Benadryl) 25 mg 1X PRN PRN IV ITCHING Last administered on 05/10/16 15:09; Start 05/10/16 at 14:45; Stop 05/11/16 at 14:44; Status DC Info (PHARMACY MONITORING -- do not chart) 1 each PRN DAILY PRN MC SEE COMMENTS ; Start 05/10/16 at 14:45; Status UNV Info 1 each 1 each PRN DAILY PRN MC SEE COMMENTS; Start 05/10/16 at 14:45 Magnesium Sulfate/ Dextrose (Magnesium Sulfate PREMIX 2GM) 50 ml @ 25 mls/hr PRN DAILY PRN IV for Mag < 1.7 on am labs; Start 05/10/16 at 15:00 Darbepoetin Jude (Aranesp) 60 mcg WEEKLYHS SQ ; Start 05/10/16 at 21:00 Labetalol HCl (Normodyne) 10 mg PRN Q1HR PRN IVP SBP > 180 Last administered on 05/10/16 16:35; Start 05/10/16 at 15:15; Stop 05/11/16 at 15:14; Status DC Alprazolam (Xanax) 2 mg PRN TID PRN PO ANXIETY / AGITATION; Start 05/10/16 at 16:45; Stop 05/10/16 at 16:52; Status DC Amlodipine Besylate (Norvasc) 10 mg DAILY PO Last administered on 05/12/16 09: 08; Start 05/10/16 at 17:00 Hydralazine HCl (Apresoline) 50 mg TID PO Last administered on 05/12/16 20:10 ; Start 05/10/16 at 21:00 Ondansetron HCl (Zofran Odt) 4 mg PRN Q8HRS PRN PO NAUSEA Last administered on 05/11/16 17:55; Start 05/10/16 at 16:45 Oxycodone/ Acetaminophen (Percocet 7.5/ 325) 1 tab PRN Q8HRS PRN PO PAIN; Start 05/10/16 at 16:45 Metoprolol Succinate (Toprol Xl) 200 mg DAILY PO Last administered on 09:08; Start 05/10/16 at 17:00 Albuterol/ Ipratropium (Duoneb) 3 ml Q4HRS W/A NEB Last administered on 07:14; Start 05/10/16 at 18:00; Stop 05/12/16 at 11:33; Status DC Lorazepam (Ativan) 1 mg PRN Q4HRS PRN IV ANXIETY / AGITATION Last administered on 05/13/16 08:29; Start 05/10/16 at 16:45 Alprazolam (Xanax) 2 mg PRN Q8HRS PRN PO ANXIETY / AGITATION Last administered on 05/12/16 09:08; Start 05/10/16 at 16:52 Hydromorphone HCl (Dilaudid) 0.8 mg PRN Q2HR PRN IVP PAIN Last administered on 05/13/16 07:54; Start 05/10/16 at 19:15 Labetalol HCl (Normodyne) 10 mg PRN Q2HR PRN IVP HYPERTENSION, SEE COMMENTS Last administered on 05/12/16 10:43; Start 05/10/16 at 19:15 Enalaprilat (Vasotec) 1.25 mg 1X ONCE IV Last administered on 05/10/16 20:01 ; Start 05/10/16 at 19:15; Stop 05/10/16 at 19:16; Status DC Info (Do NOT chart on this placeholder) 1 each 1X ONCE MC ; Start 05/10/16 at 22:15; Stop 05/10/16 at 22:16; Status UNV Influenza Virus Vaccine Quadrival (Fluarix Quad [id number] Syringe) 0.5 ml ONCE ONCE VAX IM ; Start 05/11/16 at 09:00; Stop 05/11/16 at 09:04; Status DC Vitamin B Complex (Folbic Tablet) 1 tab DAILY PO Last administered on 09:07; Start 05/12/16 at 09:00 Folic Acid (Folic Acid) 1 mg DAILY PO Last administered on 05/12/16 09:07; Start 05/12/16 at 09:00 Lidocaine (Lidoderm) 1 patch DAILY TD Last administered on 05/12/16 09:09; Start 05/11/16 at 13:00 Pantoprazole Sodium 40 mg 40 mg DAILYAC PO Last administered on 05/12/16 09:07 ; Start 05/11/16 at 16:30 Sodium Chloride 1,000 ml @ 1,000 mls/hr Q1H PRN IV hypotension; Start 05/11/16 at 19:17; Stop 05/12/16 at 01:16; Status DC Sodium Chloride (Iv Sodium Chloride 0.9% 1000ml Bag) 1,000 ml @ 400 mls/hr Q2H30M PRN IV PATENCY; Start 05/11/16 at 19:17; Stop 05/12/16 at 07:16; Status DC Info (PHARMACY MONITORING -- do not chart) 1 each PRN DAILY PRN MC SEE COMMENTS ; Start 05/11/16 at 19:30; Status UNV Diphenhydramine HCl (Benadryl) 50 mg STK-MED ONCE .ROUTE Last administered on 19:37; Start 05/11/16 at 19:37; Stop 05/11/16 at 19:38; Status DC Lidocaine HCl (Xylocaine-Mpf 1% Vial) 2 ml STK-MED ONCE .ROUTE Last administered on 05/11/16 19:37; Start 05/11/16 at 19:37; Stop 05/11/16 at 19:38 ; Status DC Diphenhydramine HCl (Benadryl) 25 mg PRN Q6HRS PRN IVP ITCHING Last administered on 05/13/16 04:06; Start 05/12/16 at 04:30 Albuterol/ Ipratropium (Duoneb) 3 ml BID NEB ; Start 05/12/16 at 21:00 Lidocaine HCl (Xylocaine-Mpf 1% Vial) 1 ml 1X STAT ID ; Start 05/12/16 at 11:32 ; Stop 05/12/16 at 11:41; Status DC Diphenhydramine HCl (Benadryl) 25 mg 1X PRN PRN IV ITCHING; Start 05/12/16 at 11:45; Stop 05/13/16 at 11:44 Diphenhydramine HCl (Benadryl) 25 mg 1X PRN PRN IV ITCHING; Start 05/12/16 at 11:45; Stop 05/13/16 at 11:44 Info (PHARMACY MONITORING -- do not chart) 1 each PRN DAILY PRN MC SEE COMMENTS ; Start 05/12/16 at 11:45; Status UNV Info (PHARMACY MONITORING -- do not chart) 1 each PRN DAILY PRN MC SEE COMMENTS ; Start 05/12/16 at 11:45; Status UNV Calcium Acetate (Phoslo) 1,334 mg TIDWMEALS PO Last administered on 05/12/16 16:45; Start 05/12/16 at 17:00 Acetaminophen (Tylenol) 650 mg PRN Q6HRS PRN PO MILD PAIN / TEMP Last administered on 05/12/16 15:27; Start 05/12/16 at 15:30 Lidocaine HCl 1 ml 1 ml 1X ONCE ID ; Start 05/13/16 at 07:45; Stop 05/13/16 at 07:46; Status DC Sodium Chloride (Iv Sodium Chloride 0.9% 1000ml Bag) 1,000 ml @ 1,000 mls/hr Q1H PRN IV hypotension; Start 05/13/16 at 09:17; Stop 05/13/16 at 15:16 Diphenhydramine HCl (Benadryl) 25 mg 1X PRN PRN IV ITCHING; Start 05/13/16 at 09:30; Stop 05/14/16 at 09:29 Diphenhydramine HCl (Benadryl) 25 mg 1X PRN PRN IV ITCHING; Start 05/13/16 at 09:30; Stop 05/14/16 at 09:29 Info (PHARMACY MONITORING -- do not chart) 1 each PRN DAILY PRN MC SEE COMMENTS ; Start 05/13/16 at 09:30; Status UNV Info (PHARMACY MONITORING -- do not chart) 1 each PRN DAILY PRN MC SEE COMMENTS ; Start 05/13/16 at 09:30; Status UNV Active Scripts Active Zofran Odt (Ondansetron) 4 Mg Tab.rapdis 1 Tab SL Q8HRS PRN Reported Percocet 7.5-325 Mg Tablet (Oxycodone/Acetaminophen) 1 Each Tablet 1 Tab PO PRN Q8HRS PRN Xanax (Alprazolam) 0.25 Mg Tablet 2 Mg PO TID PRN Metoprolol Succinate ( Xl ) (Metoprolol Succinate) 200 Mg Tab.er.24h 1 Tab PO DAILY Hydralazine Hcl 50 Mg Tablet 1 Tab PO TID Amlodipine Besylate 10 Mg Tablet 1 Tab PO DAILY Vitals/I & O Vital Sign - Last 24 Hours 05/12/16 05/12/16 05/12/16 05/12/16 10:43 11:00 11:09 15:14 Temp 99.3 99.3 Pulse 55 Resp 18 B/P 146/111 146/111 Pulse Ox 99 99 O2 Delivery Nasal Cannula Nasal Cannula Nasal Cannula O2 Flow Rate 2.0 2.0 2.0 05/12/16 05/12/16 05/12/16 05/12/16 15:15 15:28 19:00 19:13 Temp 100.2 100.9 100.2 100.9 Pulse 104 104 101 Resp 18 20 B/P 143/103 143/103 122/96 Pulse Ox 96 98 96 O2 Delivery Nasal Cannula Nasal Cannula Nasal Cannula O2 Flow Rate 2.0 2.0 05/12/16 05/12/16 05/12/16 05/12/16 20:00 20:10 23:00 23:17 Temp 98.7 98.7 Pulse 101 102 Resp 20 B/P 122/96 156/111 Pulse Ox 95 95 O2 Delivery Nasal Cannula Nasal Cannula Nasal Cannula O2 Flow Rate 2.0 2.0 05/13/16 05/13/16 05/13/16 05/13/16 03:06 03:07 03:23 03:53 Temp 97.9 97.9 97.9 97.9 Pulse 95 Resp 20 B/P 143/106 143/106 Pulse Ox 96 96 96 O2 Delivery Nasal Cannula Nasal Cannula Nasal Cannula O2 Flow Rate 2.0 2.0 05/13/16 05/13/16 07:23 07:54 Pulse Ox 95 O2 Delivery Room Air Nasal Cannula O2 Flow Rate 2.0 Intake and Output 05/12/16 05/12/16 05/13/16 15:00 23:00 07:00 Intake Total 0 ml 1080 ml Balance 0 ml 1080 ml DOLORES SCHULTZ MD May 13, 2016 10:40
--- NOTE | 2016-05-13 10:59 | PDOC ---
Subjective: Subjective: Feeling better w/ a little residual pain. Last BM 2 days ago. No vomiting. Objective: Vital Signs: Vital Signs Date Time Temp Pulse Resp B/P Pulse Ox O2 Delivery O2 Flow Rate FiO2 05/13/16 07:54 Nasal Cannula 2.0 05/13/16 07:23 95 05/13/16 03:07 97.9 95 20 143/106 97.9 Labs: Laboratory Tests Test 05/13/16 08:30 Sodium Level 141mmol/L Potassium Level 4.3mmol/L Chloride Level 99mmol/L Carbon Dioxide Level 30mmol/L Anion Gap 12 Blood Urea Nitrogen 22mg/dL Creatinine 2.5mg/dL Estimated GFR (Cockcroft-Gault) 23.3 Glucose Level 99mg/dL Calcium Level 9.3mg/dL Phosphorus Level 4.8mg/dL Albumin 3.3g/dL PE: GEN: NAD, dialyzing LUNGS: clear anteriorly HEART: RRR ABD: S/ND, epigastric discomfort NEURO/PSYCH: A & O 3 A/P: Abdominal pain, dyspepsia - improving -- Continue pantoprazole. With h/o constipation, will add Miralax. SHANDA RENE May 13, 2016 10:59
[2016-05-13 11:00] VITALS: BP 169/125
[2016-05-13] MEDS: PANTOPRAZOLE 40 MG TABLET. PO SCH (11:39)
[2016-05-13] MEDS: HYDRALAZINE 50 MG TABLET PO SCH ×3 (11:40→20:16)
[2016-05-13] MEDS: CALCIUM ACETATE 667 MG CAPSULE PO SCH ×3 (11:40→16:16)
[2016-05-13] MEDS: VITAMIN B12,B9,B6 COMPLEX 1 TABLET. PO SCH (11:41)
[2016-05-13] MEDS: FOLIC ACID 1 MG TABLET PO SCH (11:41)
[2016-05-13] MEDS: AMLODIPINE BESYLATE 10 MG TABLET PO SCH (11:42)
[2016-05-13] MEDS: METOPROLOL SUCC 24HR ER 100 MG TAB.ER.24H. PO SCH (11:43)
--- NOTE | 2016-05-13 13:31 | PDOC ---
PULMONARY PROGRESS NOTES Subjective feels better Vitals Vital Signs Date Time Temp Pulse Resp B/P Pulse Ox O2 Delivery O2 Flow Rate FiO2 05/13/16 12:49 98 Nasal Cannula 2.0 05/13/16 11:43 98 169/125 05/13/16 11:00 97.9 20 97.9 General: Alert, No acute distress Lungs: Other (No wheezing) Cardiovascular: S1 Abdomen: Soft Neuro Exam: Alert Extremities: No Edema Skin: Warm Labs Laboratory Tests Test 05/12/16 06:20 05/13/16 08:30 White Blood Count 9.1x10^3/uL (4.0-11.0) Red Blood Count 2.36x10^6/uL (3.50-5.40) Hemoglobin 7.5g/dL (12.0-15.5) Hematocrit 23.7% (36.0-47.0) Mean Corpuscular Volume 100fL (79-100) Mean Corpuscular Hemoglobin 32pg (25-35) Mean Corpuscular Hemoglobin Concent 32g/dL (31-37) Red Cell Distribution Width 21.0% (11.5-14.5) Platelet Count 198x10^3/uL (140-400) Sodium Level 139mmol/L (136-145) 141mmol/L (136-145) Potassium Level 4.5mmol/L (3.5-5.1) 4.3mmol/L (3.5-5.1) Chloride Level 100mmol/L (98-107) 99mmol/L (98-107) Carbon Dioxide Level 25mmol/L (21-32) 30mmol/L (21-32) Anion Gap 14 (6-14) 12 (6-14) Blood Urea Nitrogen 19mg/dL (7-20) 22mg/dL (7-20) Creatinine 3.1mg/dL (0.6-1.0) 2.5mg/dL (0.6-1.0) Estimated GFR (Cockcroft-Gault) 18.2 23.3 Glucose Level 95mg/dL (70-99) 99mg/dL (70-99) Calcium Level 9.9mg/dL (8.5-10.1) 9.3mg/dL (8.5-10.1) Phosphorus Level 6.4mg/dL (2.6-4.7) 4.8mg/dL (2.6-4.7) Albumin 3.4g/dL (3.4-5.0) 3.3g/dL (3.4-5.0) Laboratory Tests Test 05/13/16 08:30 Sodium Level 141mmol/L (136-145) Potassium Level 4.3mmol/L (3.5-5.1) Chloride Level 99mmol/L (98-107) Carbon Dioxide Level 30mmol/L (21-32) Anion Gap 12 (6-14) Blood Urea Nitrogen 22mg/dL (7-20) Creatinine 2.5mg/dL (0.6-1.0) Estimated GFR (Cockcroft-Gault) 23.3 Glucose Level 99mg/dL (70-99) Calcium Level 9.3mg/dL (8.5-10.1) Phosphorus Level 4.8mg/dL (2.6-4.7) Albumin 3.3g/dL (3.4-5.0) Medications Active Scripts Medications Dose Route/Sig Days Date Category Zofran Odt (Ondansetron) 4 Mg Tab.rapdis 1 Tab SL Q8HRS PRN 10/28/15 Rx Percocet 7.5-325 Mg Tablet (Oxycodone/Acetaminophen) 1 Each Tablet 1 Tab PO PRN Q8HRS PRN 08/30/14 Reported Xanax (Alprazolam) 0.25 Mg Tablet 2 Mg PO TID PRN 11/10/13 Reported Metoprolol Succinate ( Xl ) (Metoprolol Succinate) 200 Mg Tab.er.24h 1 Tab PO DAILY 11/10/13 Reported Hydralazine Hcl 50 Mg Tablet 1 Tab PO TID 11/10/13 Reported Amlodipine Besylate 10 Mg Tablet 1 Tab PO DAILY 11/10/13 Reported Impression . 1. Acute hypoxic respiratory failure, I think most likely related to asymmetric pulmonary edema. Diastolic hypertension may have contributed to the symptoms. Clinically, less likely anxiety or panic disorder. 2. No significant history of tobacco use. 3. 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 We will see the response to dialysis and would hold antibiotics. 4. History of end-stage renal disease, on hemodialysis for past 3 years. Plan . 1. Continue with hemodialysis with ultrafiltration. 2. Repeat chest x-ray today 3. Wean oxygen. 4. Follow renal recommendations. 5. echocardiogram. 6. Management of blood pressure per PCP. 7. f/u SINDY Roberson MD May 13, 2016 13:31
--- NOTE | 2016-05-13 13:43 | PDOC ---
Infectious Disease Note ROS ROS GEN: Denies fevers, chills, sweats HEENT: Denies blurred vision, sore throat CV: Denies chest pain RESP: Denies shortness of air, cough GI: Denies n/v/d NEURO: Denies confusion, dizziness MSK: Denies weakness, joint pain/swelling Vital Sign Vital Signs Vital Signs Date Time Temp Pulse Resp B/P Pulse Ox O2 Delivery O2 Flow Rate FiO2 05/13/16 12:49 98 Nasal Cannula 2.0 05/13/16 11:43 98 169/125 05/13/16 11:00 97.9 20 97.9 Physical Exam PHYSICAL EXAM GENERAL: NAD, Alert HEENT: PERRL, OC/OP NECK: Supple, no JVD, no LN LUNGS: Clear HEART: S1S2, no gallop, no murmur ABD: Soft, NT, no organomegaly, no rebound EXT: No edema, no cyanosis 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 infected Hip - recent aspiration at [facility] - not in [facility]. ? outpatient and sent somewhere else. neg aspiration 05/11/15. 04/25/16 blood cults neg CKD - on HD anemia Plan Plan of Care d/w Dr. Feldman - will hold abx for now. He plans surgery on 05/18 Do not want to start abx as it will not provide accurate picture at surgery Other option is to have IR sample the joint but will try to clarify with [facility] first Thank you # [id number] BELINDA ONOFRE MD May 13, 2016 13:43
--- NOTE | 2016-05-13 13:58 | RAD ---
EXAM: Chest one view. HISTORY: Congestive heart failure, shortness of breath. COMPARISON: 05/10/2016. FINDINGS: A frontal view of the chest is obtained. Previously noted bilateral infiltrates have improved but not completely resolved. Linear opacities bilaterally indicating a residual atelectasis or scarring. There is no pneumothorax or pleural effusion. The heart is moderately enlarged. There is a stent in the left brachycephalic vein. Atherosclerotic calcifications are noted. The distal clavicles have been resorbed bilaterally suggesting sequela of secondary hyperparathyroidism. IMPRESSION: 1. Improved pulmonary edema. Residual bilateral atelectasis or scarring. 2. Moderate cardiomegaly.
[2016-05-13 15:00] VITALS: BP 157/115
[2016-05-13 19:00] VITALS: BP 174/117
[2016-05-13 23:00] VITALS: BP 140/90
[2016-05-14] VITALS (9 sets, daily range): BP systolic 108–222; BP diastolic 105–133
[2016-05-14] MEDS: DIPHENHYDRAMINE 50 MG/ML VIAL IVP PRN ×4 (00:20→19:23)
[2016-05-14] MEDS: HYDROMORPHONE 2 MG/ML VIAL. IVP PRN ×8 (00:20→22:53)
[2016-05-14] MEDS: LORAZEPAM 2 MG/ML VIAL IV PRN ×6 (00:20→20:46)
[2016-05-14] MEDS: IPRATRPIUM/ALBUTEROL 0.5/2.5MG 3 ML NEBU. NEB SCH ×2 (07:30→20:04)
[2016-05-14] MEDS: CALCIUM ACETATE 667 MG CAPSULE PO SCH ×2 (08:00→12:00)
[2016-05-14] MEDS: PANTOPRAZOLE 40 MG TABLET. PO SCH (08:14)
[2016-05-14] MEDS: VITAMIN B12,B9,B6 COMPLEX 1 TABLET. PO SCH (08:57)
[2016-05-14] MEDS: METOPROLOL SUCC 24HR ER 100 MG TAB.ER.24H. PO SCH (08:58)
[2016-05-14] MEDS: FOLIC ACID 1 MG TABLET PO SCH (08:58)
[2016-05-14] MEDS: HYDRALAZINE 50 MG TABLET PO SCH ×3 (08:59→20:45)
[2016-05-14] MEDS: AMLODIPINE BESYLATE 10 MG TABLET PO SCH (08:59)
[2016-05-14] MEDS: LIDOCAINE (700MG/PATCH) PATCH. TD SCH (09:00)
[2016-05-14] MEDS: LABETALOL 20 MG/4 ML DISP.SYRIN. IVP PRN ×2 (10:16→20:46)
--- NOTE | 2016-05-14 10:38 | PDOC ---
Infectious Disease Note Subjective Subjective Patient feeling better Denies fevers or chills overnight ROS ROS GEN: Denies fevers, chills, sweats HEENT: Denies blurred vision, sore throat CV: Denies chest pain RESP: Denies shortness of air, cough GI: Denies n/v/d NEURO: Denies confusion, dizziness MSK: Denies weakness, 5/10 pain in right hip Vital Sign Vital Signs Vital Signs Date Time Temp Pulse Resp B/P Pulse Ox O2 Delivery O2 Flow Rate FiO2 05/14/16 10:16 109 171/126 05/14/16 08:54 18 Nasal Cannula 2.0 05/14/16 07:00 98.5 100 98.5 Physical Exam PHYSICAL EXAM GENERAL: NAD, Alert, pleasant HEENT: PERRL, OC/OP- clear NECK: Supple, no JVD, no LN LUNGS: Clear. 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 infected Hip - neg aspiration 05/11/15. blood cults neg 04/25/16. [facility] aspiration CKD - on HD anemia Plan Plan of Care D/w [facility] virgen this am. Had hardware removed 02/2016 and cults neg at time of procedure Saw [facility] ID Dr. Shaw on 04/25 which explains the neg blood cults 04/25. I have a call into him. She states she has not been on abx for her hip. Continue to hold abx for now. Ortho plans surgery for 05/18 Do not want to start abx as it will not provide accurate picture at surgery Other option is to have IR sample the joint but will try to clarify with [facility]ARCE records from 02/2016 in chart BELINDA ONOFRE MD May 14, 2016 10:38
--- NOTE | 2016-05-14 11:29 | PDOC ---
PROGRESS NOTES Chief Complaint Chief Complaint 1. Acute hypoxic respiratory failure 2. Fluid overload 3. CHF 4. Uremia 5. Met gap acidosis 6. Hyperkalemia 7. Hyperphosatemia 8. Anemia of CKD 9. Acute Abd Pain with nausea 10. Viral GI 11. HTN 12. Anxiety 13. ESRD 14. Hemodialysis for past 3 years 15. Hyperparathyroidism History of Present Illness History of Present Illness Pt awake, alert, and oriented when seen and examined this AM. Pt states that she is feeling "ok" but still really weak. Pt also states that her current dose of Benadryl does not seem to be helping or working. Discussed with patient about staying here until her surgery which is tentatively scheduled for next Tuesday. Pt agrees with the current plan. VSS- All questions and concerns answered and addressed. Vitals Vitals Vital Signs Date Time Temp Pulse Resp B/P Pulse Ox O2 Delivery O2 Flow Rate FiO2 05/14/16 10:16 109 171/126 05/14/16 09:24 18 Nasal Cannula 2.0 05/14/16 07:00 98.5 100 98.5 Physical Exam General: Alert, Oriented X3, Cooperative, No acute distress Heart: Regular rate, Normal S1, Normal S2, No murmurs Lungs: Other (No wheezing) Abdomen: Normal bowel sounds, Soft, No tenderness Extremities: No clubbing, No cyanosis, Normal pulses, Other (Tr Le edema) Skin: No rashes, No significant lesion Review of Systems Review of Systems Patient complaint of hunger Patient complaint of fatigue Assessment and Plan Assessmemt and Plan Problems Medical Problems: (1) Abdominal pain Status: Acute (2) ESRD (end stage renal disease) Status: Acute (3) Respiratory failure Status: Acute Assessment: 1. Acute hypoxic respiratory failure 2. Fluid overload 3. CHF 4. Uremia 5. Met gap acidosis 6. Hyperkalemia 7. Hyperphosatemia 8. Anemia of CKD 9. Acute Abd Pain with nausea 10. Viral GI 11. HTN 12. Anxiety 13. ESRD 14. Hemodialysis for past 3 years 15. Hyperparathyroidism Plan: Continue to monitor the patient per floor protocol Switch from daily labs to q3 day labs. Continue current HD regimen Continue supportive care Increase Benadryl to 50 IV q 6 hours Add PICC line Continue gentle hydration Encourage PO intake Appreciate all subspecialty input and recommendation -Dr Feldman surgery possibly for 2/28 -Hold IV Abx per ID recommendation ANGELITO RN Problems: Comment Review of Relevant I have reviewed the following items lynnette (where applicable) has been applied. Labs Laboratory Tests Test 05/13/16 08:30 Sodium Level 141mmol/L (136-145) Potassium Level 4.3mmol/L (3.5-5.1) Chloride Level 99mmol/L (98-107) Carbon Dioxide Level 30mmol/L (21-32) Anion Gap 12 (6-14) Blood Urea Nitrogen 22mg/dL (7-20) Creatinine 2.5mg/dL (0.6-1.0) Estimated GFR (Cockcroft-Gault) 23.3 Glucose Level 99mg/dL (70-99) Calcium Level 9.3mg/dL (8.5-10.1) Phosphorus Level 4.8mg/dL (2.6-4.7) Albumin 3.3g/dL (3.4-5.0) Medications Current Medications Fentanyl Citrate (Fentanyl 2ml Vial) 50 mcg PRN Q15MIN PRN IV PAIN GREATER THAN 3/10 Last administered on 05/10/16 13:38; Start 05/10/16 at 12:30; Stop at 12:29; Status DC Nitroglycerin (Nitrostat) 0.4 mg PRN Q5MIN PRN SL CHEST PAIN Last administered on 05/10/16 12:55; Start 05/10/16 at 12:30 Lorazepam (Ativan) 1 mg 1X ONCE IV Last administered on 05/10/16 12:58; Start 05/10/16 at 12:45; Stop 05/10/16 at 12:46; Status DC Diltiazem HCl (Cardizem) 30 mg 1X ONCE PO ; Start 05/10/16 at 14:15; Stop 05/10 at 14:22; Status DC Diphenhydramine HCl (Benadryl) 25 mg 1X PRN PRN IV ITCHING Last administered on 05/10/16 14:58; Start 05/10/16 at 14:45; Stop 05/11/16 at 14:44; Status DC Diphenhydramine HCl (Benadryl) 25 mg 1X PRN PRN IV ITCHING Last administered on 05/10/16 15:09; Start 05/10/16 at 14:45; Stop 05/11/16 at 14:44; Status DC Info (PHARMACY MONITORING -- do not chart) 1 each PRN DAILY PRN MC SEE COMMENTS ; Start 05/10/16 at 14:45; Status UNV Info 1 each 1 each PRN DAILY PRN MC SEE COMMENTS; Start 05/10/16 at 14:45 Magnesium Sulfate/ Dextrose (Magnesium Sulfate PREMIX 2GM) 50 ml @ 25 mls/hr PRN DAILY PRN IV for Mag < 1.7 on am labs; Start 05/10/16 at 15:00 Darbepoetin Jude (Aranesp) 60 mcg WEEKLYHS SQ ; Start 05/10/16 at 21:00 Labetalol HCl (Normodyne) 10 mg PRN Q1HR PRN IVP SBP > 180 Last administered on 05/10/16 16:35; Start 05/10/16 at 15:15; Stop 05/11/16 at 15:14; Status DC Alprazolam (Xanax) 2 mg PRN TID PRN PO ANXIETY / AGITATION; Start 05/10/16 at 16:45; Stop 05/10/16 at 16:52; Status DC Amlodipine Besylate (Norvasc) 10 mg DAILY PO Last administered on 05/14/16 08: 59; Start 05/10/16 at 17:00 Hydralazine HCl (Apresoline) 50 mg TID PO Last administered on 05/14/16 08:59 ; Start 05/10/16 at 21:00 Ondansetron HCl (Zofran Odt) 4 mg PRN Q8HRS PRN PO NAUSEA Last administered on 05/11/16 17:55; Start 05/10/16 at 16:45 Oxycodone/ Acetaminophen (Percocet 7.5/ 325) 1 tab PRN Q8HRS PRN PO PAIN; Start 05/10/16 at 16:45 Metoprolol Succinate (Toprol Xl) 200 mg DAILY PO Last administered on 08:58; Start 05/10/16 at 17:00 Albuterol/ Ipratropium (Duoneb) 3 ml Q4HRS W/A NEB Last administered on 07:14; Start 05/10/16 at 18:00; Stop 05/12/16 at 11:33; Status DC Lorazepam (Ativan) 1 mg PRN Q4HRS PRN IV ANXIETY / AGITATION Last administered on 05/14/16 08:53; Start 05/10/16 at 16:45 Alprazolam (Xanax) 2 mg PRN Q8HRS PRN PO ANXIETY / AGITATION Last administered on 05/12/16 09:08; Start 05/10/16 at 16:52 Hydromorphone HCl (Dilaudid) 0.8 mg PRN Q2HR PRN IVP PAIN Last administered on 05/14/16 08:54; Start 05/10/16 at 19:15 Labetalol HCl (Normodyne) 10 mg PRN Q2HR PRN IVP HYPERTENSION, SEE COMMENTS Last administered on 05/14/16 10:16; Start 05/10/16 at 19:15 Enalaprilat (Vasotec) 1.25 mg 1X ONCE IV Last administered on 05/10/16 20:01 ; Start 05/10/16 at 19:15; Stop 05/10/16 at 19:16; Status DC Info (Do NOT chart on this placeholder) 1 each 1X ONCE MC ; Start 05/10/16 at 22:15; Stop 05/10/16 at 22:16; Status UNV Influenza Virus Vaccine Quadrival (Fluarix Quad [id number] Syringe) 0.5 ml ONCE ONCE VAX IM ; Start 05/11/16 at 09:00; Stop 05/11/16 at 09:04; Status DC Vitamin B Complex (Folbic Tablet) 1 tab DAILY PO Last administered on 08:57; Start 05/12/16 at 09:00 Folic Acid (Folic Acid) 1 mg DAILY PO Last administered on 05/14/16 08:58; Start 05/12/16 at 09:00 Lidocaine (Lidoderm) 1 patch DAILY TD Last administered on 05/12/16 09:09; Start 05/11/16 at 13:00 Pantoprazole Sodium 40 mg 40 mg DAILYAC PO Last administered on 05/14/16 08:14 ; Start 05/11/16 at 16:30 Sodium Chloride 1,000 ml @ 1,000 mls/hr Q1H PRN IV hypotension; Start 05/11/16 at 19:17; Stop 05/12/16 at 01:16; Status DC Sodium Chloride (Iv Sodium Chloride 0.9% 1000ml Bag) 1,000 ml @ 400 mls/hr Q2H30M PRN IV PATENCY; Start 05/11/16 at 19:17; Stop 05/12/16 at 07:16; Status DC Info (PHARMACY MONITORING -- do not chart) 1 each PRN DAILY PRN MC SEE COMMENTS ; Start 05/11/16 at 19:30; Status UNV Diphenhydramine HCl (Benadryl) 50 mg STK-MED ONCE .ROUTE Last administered on 19:37; Start 05/11/16 at 19:37; Stop 05/11/16 at 19:38; Status DC Lidocaine HCl (Xylocaine-Mpf 1% Vial) 2 ml STK-MED ONCE .ROUTE Last administered on 05/11/16 19:37; Start 05/11/16 at 19:37; Stop 05/11/16 at 19:38 ; Status DC Diphenhydramine HCl (Benadryl) 25 mg PRN Q6HRS PRN IVP ITCHING Last administered on 05/14/16 07:34; Start 05/12/16 at 04:30; Stop 05/14/16 at 10:10 ; Status DC Albuterol/ Ipratropium (Duoneb) 3 ml BID NEB ; Start 05/12/16 at 21:00 Lidocaine HCl (Xylocaine-Mpf 1% Vial) 1 ml 1X STAT ID ; Start 05/12/16 at 11:32 ; Stop 05/12/16 at 11:41; Status DC Diphenhydramine HCl (Benadryl) 25 mg 1X PRN PRN IV ITCHING Last administered on 05/14/16 10:16; Start 05/12/16 at 11:45; Stop 05/13/16 at 11:44; Status DC Diphenhydramine HCl (Benadryl) 25 mg 1X PRN PRN IV ITCHING; Start 05/12/16 at 11:45; Stop 05/13/16 at 11:44; Status DC Info (PHARMACY MONITORING -- do not chart) 1 each PRN DAILY PRN MC SEE COMMENTS ; Start 05/12/16 at 11:45; Status UNV Info (PHARMACY MONITORING -- do not chart) 1 each PRN DAILY PRN MC SEE COMMENTS ; Start 05/12/16 at 11:45; Status UNV Calcium Acetate (Phoslo) 1,334 mg TIDWMEALS PO Last administered on 05/12/16 16:45; Start 05/12/16 at 17:00 Acetaminophen (Tylenol) 650 mg PRN Q6HRS PRN PO MILD PAIN / TEMP Last administered on 05/12/16 15:27; Start 05/12/16 at 15:30 Lidocaine HCl 1 ml 1 ml 1X ONCE ID ; Start 05/13/16 at 07:45; Stop 05/13/16 at 07:46; Status DC Sodium Chloride (Iv Sodium Chloride 0.9% 1000ml Bag) 1,000 ml @ 1,000 mls/hr Q1H PRN IV hypotension; Start 05/13/16 at 09:17; Stop 05/13/16 at 15:16; Status DC Diphenhydramine HCl (Benadryl) 25 mg 1X PRN PRN IV ITCHING; Start 05/13/16 at 09:30; Stop 05/13/16 at 19:00; Status DC Diphenhydramine HCl (Benadryl) 25 mg 1X PRN PRN IV ITCHING; Start 05/13/16 at 09:30; Stop 05/13/16 at 19:00; Status DC Info (PHARMACY MONITORING -- do not chart) 1 each PRN DAILY PRN MC SEE COMMENTS ; Start 05/13/16 at 09:30; Status UNV Info (PHARMACY MONITORING -- do not chart) 1 each PRN DAILY PRN MC SEE COMMENTS ; Start 05/13/16 at 09:30; Status UNV Polyethylene Glycol (miraLAX PACKET) 17 gm DAILY PO ; Start 05/14/16 at 12:00 Diphenhydramine HCl (Benadryl) 50 mg PRN Q6HRS PRN IVP ITCHING; Start 05/14/16 at 10:15 Active Scripts Active Zofran Odt (Ondansetron) 4 Mg Tab.rapdis 1 Tab SL Q8HRS PRN Reported Percocet 7.5-325 Mg Tablet (Oxycodone/Acetaminophen) 1 Each Tablet 1 Tab PO PRN Q8HRS PRN Xanax (Alprazolam) 0.25 Mg Tablet 2 Mg PO TID PRN Metoprolol Succinate ( Xl ) (Metoprolol Succinate) 200 Mg Tab.er.24h 1 Tab PO DAILY Hydralazine Hcl 50 Mg Tablet 1 Tab PO TID Amlodipine Besylate 10 Mg Tablet 1 Tab PO DAILY Vitals/I & O Vital Sign - Last 24 Hours 05/13/16 05/13/16 05/13/16 05/13/16 11:40 11:42 11:43 12:13 Pulse 98 98 98 B/P 169/125 169/125 169/125 O2 Delivery Nasal Cannula O2 Flow Rate 2.0 05/13/16 05/13/16 05/13/16 05/13/16 15:00 16:06 16:07 19:00 Temp 99.0 98.4 99.0 98.4 Pulse 109 98 85 Resp 18 18 B/P 157/115 169/125 174/117 Pulse Ox 95 98 O2 Delivery Nasal Cannula Nasal Cannula Room Air O2 Flow Rate 2.0 2.0 05/13/16 05/13/16 05/13/16 05/13/16 20:00 20:16 20:17 23:00 Temp 98.5 98.5 Pulse 85 89 B/P 174/117 140/90 Pulse Ox 95 98 O2 Delivery Nasal Cannula Nasal Cannula High Flow Nasal Cannula O2 Flow Rate 2.0 2.0 05/14/16 05/14/16 05/14/16 05/14/16 00:20 03:00 04:43 05:13 Temp 99.0 99.0 Pulse 101 Resp 18 B/P 153/130 Pulse Ox 95 100 100 100 O2 Delivery Nasal Cannula High Flow Nasal Cannula Nasal Cannula O2 Flow Rate 2.0 2.0 05/14/16 05/14/16 05/14/16 05/14/16 07:00 08:00 08:54 08:58 Temp 98.5 98.5 Pulse 105 60 Resp 18 18 B/P 178/133 177/133 Pulse Ox 100 O2 Delivery Nasal Cannula Nasal Cannula Nasal Cannula O2 Flow Rate 2.0 2.0 2.0 05/14/16 05/14/16 05/14/16 05/14/16 08:59 08:59 09:24 10:16 Pulse 60 60 109 Resp 18 B/P 177/133 177/133 171/126 O2 Delivery Nasal Cannula O2 Flow Rate 2.0 Intake and Output 05/13/16 05/13/16 05/14/16 15:00 23:00 07:00 Intake Total 250 ml 850 ml 240 ml Output Total 0 ml 0 ml Balance 250 ml 850 ml 240 ml KINGSLEY EVERETT III DO May 14, 2016 11:29
--- NOTE | 2016-05-14 11:49 | PDOC ---
PULMONARY PROGRESS NOTES Subjective feels better Vitals Vital Signs Date Time Temp Pulse Resp B/P Pulse Ox O2 Delivery O2 Flow Rate FiO2 05/14/16 10:16 109 171/126 05/14/16 09:24 18 Nasal Cannula 2.0 05/14/16 07:00 98.5 100 98.5 General: Alert, No acute distress Lungs: Other (No wheezing) Cardiovascular: S1 Abdomen: Soft Neuro Exam: Alert Extremities: No Edema Skin: Warm Labs Laboratory Tests Test 05/13/16 08:30 Sodium Level 141mmol/L (136-145) Potassium Level 4.3mmol/L (3.5-5.1) Chloride Level 99mmol/L (98-107) Carbon Dioxide Level 30mmol/L (21-32) Anion Gap 12 (6-14) Blood Urea Nitrogen 22mg/dL (7-20) Creatinine 2.5mg/dL (0.6-1.0) Estimated GFR (Cockcroft-Gault) 23.3 Glucose Level 99mg/dL (70-99) Calcium Level 9.3mg/dL (8.5-10.1) Phosphorus Level 4.8mg/dL (2.6-4.7) Albumin 3.3g/dL (3.4-5.0) Medications Active Scripts Medications Dose Route/Sig Days Date Category Zofran Odt (Ondansetron) 4 Mg Tab.rapdis 1 Tab SL Q8HRS PRN 10/28/15 Rx Percocet 7.5-325 Mg Tablet (Oxycodone/Acetaminophen) 1 Each Tablet 1 Tab PO PRN Q8HRS PRN 08/30/14 Reported Xanax (Alprazolam) 0.25 Mg Tablet 2 Mg PO TID PRN 11/10/13 Reported Metoprolol Succinate ( Xl ) (Metoprolol Succinate) 200 Mg Tab.er.24h 1 Tab PO DAILY 11/10/13 Reported Hydralazine Hcl 50 Mg Tablet 1 Tab PO TID 11/10/13 Reported Amlodipine Besylate 10 Mg Tablet 1 Tab PO DAILY 11/10/13 Reported Impression . 1. Acute hypoxic respiratory failure, related to asymmetric pulmonary edema. Diastolic hypertension may have contributed to the symptoms. Clinically, less likely anxiety or panic disorder. 2. No significant history of tobacco use. 3. 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 4. History of end-stage renal disease, on hemodialysis for past 3 years. Plan . 1. Continue with hemodialysis with ultrafiltration. 2. Repeat chest x-ray 05/13 with almost complete resolution of CHF 3. Wean oxygen. 4. Follow renal recommendations. 5. echocardiogram. 6. Management of blood pressure per PCP. 7. f/u Hb stable pulmonary status. will see SINDY Valladares MD May 14, 2016 11:49
[2016-05-14] MEDS ORDERED: POLYETHYLENE GLYCOL 3350 17 GM PACKET. PO SCH (12:00)
--- NOTE | 2016-05-14 13:26 | PDOC ---
SUBJECTIVE ROS ESRD Doing a little better today CVS: no Orthopnea, no CP RESP: no SOB, no BARAJAS GI: min Nausea, no Vomiting : no Dysuria, no Urgency OBJECTIVE Vital Signs Vital Signs Date Time Temp Pulse Resp B/P Pulse Ox O2 Delivery O2 Flow Rate FiO2 05/14/16 11:00 98.5 107 18 159/114 99 Nasal Cannula 2.0 98.5 I & 0 Intake and Output 05/14/16 07:00 Intake Total 1340 ml Output Total 0 ml Balance 1340 ml Intake Oral 1340 ml Output Urine Total 0 ml PHYSICAL EXAM Physical Exam GEN: Awake, Oriented x 3, In no distress EYES: Vision Unchanged, Conjunctiva Normal EN: No EN Drainage, Mucous Membranes moist NECK: no JVD, no JVP, Supple, no Thyromegaly CVS: S1S2, soft Murmur, No Gallop, No Rub,no Edema RESP: no Rales, no Rhonchi,no Acc. Muscle Use GI: BS + ve, NO Bruit, Non Tender, Non Distended : no CVA tenderness, no Suprapubic Tenderness DIAGNOSIS/ASSESSMENT Assessment & Plan ESRD: Current fluid and E-lyte status does not necessitate emergent need for dialysis. Will re-evaluate for dialysis in the am and continue on TTSAT schedule. ANEMIA; Aranap as ordered, Transfuse with next HD as needed for hgb < 7 HTN: Current BP meds as reviewed. See orders for changes. KT/ BONE & MINERAL: phos was much better on last check; she does not like phoslo and will change to TUMS. She does not remember dose of Sensipar so will start as the smallest dose CHF - resolved with HD and per CXR. Await ECHO For Hip surgery next week Discussed Plan of Care with pt at bedside Problems: COMMENT/RELEVANT DATA Meds Current Medications Medications (Trade) Dose Ordered Sig/Rolly Start Time Stop Time Status Last Admin Dose Admin Acetaminophen (Tylenol) 650 mg PRN Q6HRS PRN 05/12/16 15:30 05/12/16 15:27 650 MG Albuterol/ Ipratropium (Duoneb) 3 ml BID 05/12/16 21:00 Alprazolam (Xanax) 2 mg PRN Q8HRS PRN 05/10/16 16:52 05/12/16 09:08 2 MG Amlodipine Besylate (Norvasc) 10 mg DAILY 05/10/16 17:00 05/14/16 08:59 10 MG Calcium Acetate (Phoslo) 1,334 mg TIDWMEALS 05/12/16 17:00 05/12/16 16:45 1,334 MG Darbepoetin Jude (Aranesp) 60 mcg WEEKLYHS 05/10/16 21:00 Diltiazem HCl (Cardizem) 30 mg 1X ONCE 05/10/16 14:15 05/10/16 14:22 DC Diphenhydramine HCl (Benadryl) 50 mg PRN Q6HRS PRN 05/14/16 10:15 Enalaprilat (Vasotec) 1.25 mg 1X ONCE 05/10/16 19:15 05/10/16 19:16 DC 05/10/16 20:01 1.25 MG Fentanyl Citrate (Fentanyl 2ml Vial) 50 mcg PRN Q15MIN PRN 05/10/16 12:30 05/11/16 12:29 DC 05/10/16 13:38 50 MCG Folic Acid (Folic Acid) 1 mg DAILY 05/12/16 09:00 05/14/16 08:58 1 MG Hydralazine HCl (Apresoline) 50 mg TID 05/10/16 21:00 05/14/16 08:59 50 MG Hydromorphone HCl (Dilaudid) 0.8 mg PRN Q2HR PRN 05/10/16 19:15 05/14/16 08:54 0.8 MG Influenza Virus Vaccine Quadrival (Fluarix Quad [id number] Syringe) 0.5 ml ONCE ONCE 05/11/16 09:00 05/11/16 09:04 DC Info (Do NOT chart on this placeholder) 1 each 1X ONCE 05/10/16 22:15 05/10/16 22:16 UNV Info (PHARMACY MONITORING -- do not chart) 1 each PRN DAILY PRN 05/13/16 09:30 UNV Info 1 each 1 each PRN DAILY PRN 05/10/16 14:45 Labetalol HCl (Normodyne) 10 mg PRN Q2HR PRN 05/10/16 19:15 05/14/16 10:16 10 MG Lidocaine (Lidoderm) 1 patch DAILY 05/11/16 13:00 2/22/17 09:09 1 PATCH Lidocaine HCl (Xylocaine-Mpf 1% Vial) 1 ml 1X STAT 05/12/16 11:32 05/12/16 11:41 DC Lidocaine HCl 1 ml 1 ml 1X ONCE 05/13/16 07:45 05/13/16 07:46 DC Lorazepam (Ativan) 1 mg PRN Q4HRS PRN 05/10/16 16:45 05/14/16 08:53 1 MG Magnesium Sulfate/ Dextrose (Magnesium Sulfate PREMIX 2GM) 50 ml @ 25 mls/hr PRN DAILY PRN 05/10/16 15:00 Metoprolol Succinate (Toprol Xl) 200 mg DAILY 05/10/16 17:00 05/14/16 08:58 200 MG Nitroglycerin (Nitrostat) 0.4 mg PRN Q5MIN PRN 05/10/16 12:30 05/10/16 12:55 0.4 MG Ondansetron HCl (Zofran Odt) 4 mg PRN Q8HRS PRN 05/10/16 16:45 05/11/16 17:55 4 MG Oxycodone/ Acetaminophen (Percocet 7.5/ 325) 1 tab PRN Q8HRS PRN 05/10/16 16:45 Pantoprazole Sodium (Protonix) 40 mg DAILYAC 05/11/16 16:30 05/14/16 08:14 40 MG Polyethylene Glycol (miraLAX PACKET) 17 gm DAILY 05/14/16 12:00 Sodium Chloride (Iv Sodium Chloride 0.9% 1000ml Bag) 1,000 ml @ 1,000 mls/hr Q1H PRN 05/13/16 09:17 05/13/16 15:16 DC Vitamin B Complex (Folbic Tablet) 1 tab DAILY 05/12/16 09:00 05/14/16 08:57 1 TAB VALERY SOARES MD May 14, 2016 13:26
[2016-05-14] MEDS ORDERED: CALCIUM CARBONATE 500 MG TAB.CHEW PO PRN (13:30)
--- NOTE | 2016-05-14 14:30 | PDOC ---
Subjective: Subjective: Still a little pain but tolerating diet and stooling. Better overall. Objective: Vital Signs: Vital Signs Date Time Temp Pulse Resp B/P Pulse Ox O2 Delivery O2 Flow Rate FiO2 05/14/16 13:24 18 Nasal Cannula 2.0 05/14/16 11:00 98.5 107 159/114 99 98.5 PE: GEN: NAD LUNGS: CTAB anteriorly HEART: RRR ABD: S/ND/NT NEURO/PSYCH: A & O 3 A/P: Abdominal pain, dyspepsia - improving -- Continue PPI, Miralax. SHANDA RENE May 14, 2016 14:30
[2016-05-14] MEDS ORDERED: LIDOCAINE 1% / SOD BICARB 8.4% 20 ML VIAL. IJ ONE ×2 (14:53→16:15)
[2016-05-14] MEDS ORDERED: MIDAZOLAM HCL 2 MG/2 ML VIAL. ONE (15:52)
--- NOTE | 2016-05-14 15:53 | CONS ---
DATE OF CONSULTATION: 05/13/2016 PATIENT'S ROOM: 506. PRESENTING PHYSICIAN: Dr. Torrez. REQUESTING PHYSICIAN: ____. REASON FOR CONSULTATION: Infected hip. HISTORY OF PRESENT ILLNESS: The patient is a pleasant 26-year-old female with chronic kidney disease on hemodialysis after developing post-strep throat infection and kidney failure when she was 9. She has had complications with right hip intertrochanteric fracture in the right femur and fracture of the pelvis and she has had some surgery at and has undergone a Girdlestone procedure. She states that several weeks ago, she had an aspiration of her hip done to rule out infection and was told that it was negative. She had not been on any antibiotics, but she presented to [facility] on the 10 of May secondary to complaints of abdominal pain. She had nausea, vomiting, diarrhea, headache and blurred vision. She does have history of pancreatitis. She underwent a CT scan of the abdomen and pelvis which showed worsening pulmonary infiltrates suggesting pulmonary edema or pneumonia, anasarca and chronic musculoskeletal abnormalities, which showed bilateral pubic bone fractures, old healed fracture of the right proximal femur, and the proximal femur is displaced proximally relative to the acetabulum. X-ray of the hip showed the right femoral head and neck are mostly absent indicating resection resolution and some subacute fractures. I talked to the patient. She said again she had aspiration of hip done several weeks ago and that was negative; however. I did talk to microbiology. Only tissue sample they have is from 05/11/2015 that was negative, although she did have recent blood cultures obtained on the 25 of April that are negative. She did have a low-grade fever of 100.9 at one point, but this subsequently resolved now and she states she is feeling better. ____ has seen the patient and I discussed the case with him. He is planning to take her to surgery on Tuesday. At that point, to do a pathology to see if there is any inflammation or concern for infection prior to doing any implantation. Currently, the patient is lying in bed. She is feeling much better. She has been eating. She had bowel movements and her abdominal pain has improved. PAST MEDICAL HISTORY: Positive for chronic kidney disease, on hemodialysis, hypertension, anemia, anxiety disorder, hyperparathyroidism, history of the above-mentioned hip infection, had been followed by , did receive vancomycin at home for 4 weeks, but that was quite some time ago, she states. History of anemia. PAST SURGICAL HISTORY: Positive for hip surgeries mentioned above and dialysis access. REVIEW OF SYSTEMS: Otherwise negative. SOCIAL HISTORY: She lives with family. She has a 7-year-old daughter. FAMILY HISTORY: Positive for hypertension. ALLERGIES: LISTED SULFA MAKE HER SICK. HALOPERIDOL IS ALSO LISTED. CURRENT MEDICATIONS: Include Norvasc, PhosLo, Aricept, folic acid, Dilaudid, labetalol. Other meds are available and reviewed in the chart. PHYSICAL EXAMINATION: VITAL SIGNS: Currently she is afebrile, temperature 97.9, pulse 98, blood pressure 169/125, on 2 liters nasal cannula, satting 98%. CONSTITUTIONAL: She is very pleasant, cooperative, in no acute distress. HEENT: Pupils are equal and reactive. Normal conjunctivae. Oral cavity, pharynx is clear. NECK: Supple, no JVD. LUNGS: Clear to auscultation bilaterally. HEART: S1, S2 with a slight murmur. ABDOMEN: Soft, nontender, nondistended with positive bowel sounds. EXTREMITIES: Without clubbing, cyanosis. Trace edema. Right hip, she has a well-healed scar. There is mild warmth. No inflammation, erythema or tenderness. LABORATORY DATA: White count 9.1 from the nd, hemoglobin 7.5, platelets of 198. She had 82% segs on arrival. Glucose 99, creatinine 4.8. Radiology reviewed in history of present illness. IMPRESSION: 1. Fever, that has improved. 2. Abdominal pain, that has improved. 3. Questionable infected hip with again recent aspiration at . However, there was no information with regards to the recent hip infection at microbiology lab. She states it was done in the office setting and may be sent to another facility, but again she states that this was negative for infection as she has not been on any antibiotics for this. Again, she did have blood cultures obtained on 04/25/2016 at that has been negative. 4. Chronic kidney disease, on hemodialysis. 5. Anemia. RECOMMENDATIONS: At this time, again I did discuss with ____ and hold antibiotics for now. He plans surgery on 05/18/2016, would like to avoid giving her antibiotics prior to surgery if possible, so as to not give an accurate picture of what might be going on in her hip with regards to infection versus no infection. If she does worse and pain worsens, then we could have Interventional Radiology place a needle in her hip and acquire some fluid or tissue. In the meantime, we will try to clarify with [facility] what exactly has been done as her orthopedic surgeon is Dr. Darrin Mcclure. Thank you for allowing me to participate in the patient's care. If you have any questions, please do not hesitate to contact me. BELINDA ONOFRE MD DR: COREY/phuc JOB#: [id number] / [id number]
[2016-05-14] MEDS ORDERED: IOHEXOL 300 MG/ML 50 ML VIAL. ONE (16:03)
--- NOTE | 2016-05-14 16:14 | CARD ---
APPROVED REPORT EXAM: Two-dimensional and M-mode echocardiogram with Doppler and color Doppler. Other Information Quality : Good INDICATION Congestive Heart Failure 2D DIMENSIONS RVDd3.7 (2.9-3.5cm)Left Atrium(2D)3.7 (1.6-4.0cm) IVSd1.0 (0.7-1.1cm)Aortic Root(2D)2.7 (2.0-3.7cm) LVDd4.4 (3.9-5.9cm)LVOT Diameter2.1 (1.8-2.4cm) PWd1.0 (0.7-1.1cm)LVDs3.3 (2.5-4.0cm) FS (%) 28.0 %SV42.3 ml LVEF(%)55.0 (>50%) Aortic Valve AoV Peak Rangel.145.9cm/Aubrey Peak GR.8.5mmHg Mitral Valve MV E Beumemuj361.2cm/sMV DECEL [id number] MV A Ebbhdhtt734.6cm/sE/A Ratio0.8 TDI Lateral E' P. V12.36cm/sMedial E' P. V10.10cm/s E/Lateral E'8.5E/Medial E'10.4 Tricuspid Valve TR P. [id number]/sRAP [id number] TR Peak Gr.[id number] LEFT VENTRICLE The left ventricle is normal size. There is normal left ventricular wall thickness. Left ventricle sy stolic function is normal. The Ejection Fraction is 55%. There is normal LV segmental wall motion. Tr ansmitral Doppler flow pattern is Grade I-abnormal relaxation pattern. RIGHT VENTRICLE The right ventricle is normal size. The right ventricular systolic function is normal. ATRIA The left atrium size is normal. The right atrium size is normal. The interatrial septum is intact wit h no evidence for an atrial septal defect or patent foramen ovale as noted on 2-D or Doppler imaging. AORTIC VALVE The aortic valve is calcified but opens well. Doppler and Color Flow revealed no significant aortic r egurgitation. There is no significant aortic valvular stenosis. MITRAL VALVE The mitral valve is calcified but opens well. Anterior mitral annular calcification is moderate. Ther e is no evidence of mitral valve prolapse. There is no mitral valve stenosis. Doppler and Color-flow revealed mild mitral regurgitation. TRICUSPID VALVE The tricuspid valve is normal in structure and function. Doppler and Color Flow revealed moderate to severe tricuspid regurgitation. There is moderate pulmonary hypertension. The PA pressure was estimat ed at 53 mmHg. There is no tricuspid valve stenosis. PULMONIC VALVE The pulmonary valve is normal in structure and function. Doppler and Color Flow revealed trace to mil d pulmonic valvular regurgitation. There is no pulmonic valvular stenosis. GREAT VESSELS The aortic root is normal in size. The ascending aorta is normal in size. The IVC is normal in size a nd collapses <50% with inspiration. PERICARDIAL EFFUSION There is no evidence of significant pericardial effusion. Critical Notification Critical Value: No <Conclusion> Left ventricle systolic function is normal. The Ejection Fraction is 55%. There is normal LV segmental wall motion. Transmitral Doppler flow pattern is Grade I-abnormal relaxation pattern. Mild mitral regurgitation. Moderate to severe tricuspid regurgitation. There is moderate pulmonary hypertension. The PA pressure was estimated at 53 mmHg. There is no evidence of significant pericardial effusion.
[2016-05-14] MEDS ORDERED: IOHEXOL 300 MG/ML 50 ML VIAL. IART ONE (16:15)
[2016-05-14] MEDS ORDERED: MIDAZOLAM HCL 2 MG/2 ML VIAL. IV ONE (16:15)
--- NOTE | 2016-05-14 16:25 | PDOC ---
Exam Lead Scientist Lead Scientist Eder Immigration Manager Immigration Manager F Ndumbu Pre-Procedure Diagnosis Pre-Procedure Diagnosis 26 YO female with poor peripheral IV access, and with known bilateral IJ/EJ occlusion. Venous access has been requested for infusions and blood draws, as well as for pre-op hip surgery scheduled next week. Post-Procedure Diagnosis Post-Procedure Diagnosis Same. Additional chronic occlusion of right axillary, subclavian, and innominate veins. Procedure Performed Procedure Performed Sono/fluoro guided rt arm MIDLINE Power Picc insertion. Rt upper extremity venogram Type of Anesthesia Type of Anesthesia Local + IV Versed anxiolysis Estimated Blood Loss EBL: Minimal Drain/Tubes Drains/Tubes Right brachial vein 5F 2L 17cm MIDLINE Power Picc Condition of Patient Condition of Patient Stable. No apparent complication. Disposition Disposition From IR return to 506. OK to use MIDLINE Power Picc for blood draws and NON-HYPERTONIC infusions. Full report to follow. SEBASTIAN RICO MD May 14, 2016 16:25
[2016-05-14] MEDS ORDERED: CALCIUM CARBONATE 500 MG TAB.CHEW PO SCH (16:30)
--- NOTE | 2016-05-14 17:51 | PDOC ---
PROGRESS NOTES Subjective Subjective She admits continued low back and right hip area pain. Objective Objective Vital Signs Date Time Temp Pulse Resp B/P Pulse Ox O2 Delivery O2 Flow Rate FiO2 05/14/16 16:33 18 Nasal Cannula 2.0 05/14/16 16:32 109 170/119 05/14/16 16:16 98 05/14/16 15:00 98.3 98.3 Intake and Output 05/14/16 07:00 Intake Total 1340 ml Output Total 0 ml Balance 1340 ml Intake Oral 1340 ml Output Urine Total 0 ml Physical Exam Physical Exam She is getting up and walking with roller walker.Her physical endurance is low. Assessment Assessment Problems Medical Problems: (1) Abdominal pain Status: Acute (2) ESRD (end stage renal disease) Status: Acute (3) Respiratory failure Status: Acute Plan Plan of Care To encourage her to get up more. Comment Review of Relevant I have reviewed the following items lynnette (where applicable) has been applied. Labs Laboratory Tests Test 05/13/16 08:30 Sodium Level 141mmol/L (136-145) Potassium Level 4.3mmol/L (3.5-5.1) Chloride Level 99mmol/L (98-107) Carbon Dioxide Level 30mmol/L (21-32) Anion Gap 12 (6-14) Blood Urea Nitrogen 22mg/dL (7-20) Creatinine 2.5mg/dL (0.6-1.0) Estimated GFR (Cockcroft-Gault) 23.3 Glucose Level 99mg/dL (70-99) Calcium Level 9.3mg/dL (8.5-10.1) Phosphorus Level 4.8mg/dL (2.6-4.7) Albumin 3.3g/dL (3.4-5.0) Medications Current Medications Fentanyl Citrate (Fentanyl 2ml Vial) 50 mcg PRN Q15MIN PRN IV PAIN GREATER THAN 3/10 Last administered on 05/10/16 13:38; Start 05/10/16 at 12:30; Stop at 12:29; Status DC Nitroglycerin (Nitrostat) 0.4 mg PRN Q5MIN PRN SL CHEST PAIN Last administered on 05/10/16 12:55; Start 05/10/16 at 12:30 Lorazepam (Ativan) 1 mg 1X ONCE IV Last administered on 05/10/16 12:58; Start 05/10/16 at 12:45; Stop 05/10/16 at 12:46; Status DC Diltiazem HCl (Cardizem) 30 mg 1X ONCE PO ; Start 05/10/16 at 14:15; Stop 05/10 at 14:22; Status DC Diphenhydramine HCl (Benadryl) 25 mg 1X PRN PRN IV ITCHING Last administered on 05/10/16 14:58; Start 05/10/16 at 14:45; Stop 05/11/16 at 14:44; Status DC Diphenhydramine HCl (Benadryl) 25 mg 1X PRN PRN IV ITCHING Last administered on 05/10/16 15:09; Start 05/10/16 at 14:45; Stop 05/11/16 at 14:44; Status DC Info (PHARMACY MONITORING -- do not chart) 1 each PRN DAILY PRN MC SEE COMMENTS ; Start 05/10/16 at 14:45; Status UNV Info 1 each 1 each PRN DAILY PRN MC SEE COMMENTS; Start 05/10/16 at 14:45 Magnesium Sulfate/ Dextrose (Magnesium Sulfate PREMIX 2GM) 50 ml @ 25 mls/hr PRN DAILY PRN IV for Mag < 1.7 on am labs; Start 05/10/16 at 15:00 Darbepoetin Jude (Aranesp) 60 mcg WEEKLYHS SQ ; Start 05/10/16 at 21:00 Labetalol HCl (Normodyne) 10 mg PRN Q1HR PRN IVP SBP > 180 Last administered on 05/10/16 16:35; Start 05/10/16 at 15:15; Stop 05/11/16 at 15:14; Status DC Alprazolam (Xanax) 2 mg PRN TID PRN PO ANXIETY / AGITATION; Start 05/10/16 at 16:45; Stop 05/10/16 at 16:52; Status DC Amlodipine Besylate (Norvasc) 10 mg DAILY PO Last administered on 05/14/16 08: 59; Start 05/10/16 at 17:00 Hydralazine HCl (Apresoline) 50 mg TID PO Last administered on 05/14/16 16:32 ; Start 05/10/16 at 21:00 Ondansetron HCl (Zofran Odt) 4 mg PRN Q8HRS PRN PO NAUSEA Last administered on 05/11/16 17:55; Start 05/10/16 at 16:45 Oxycodone/ Acetaminophen (Percocet 7.5/ 325) 1 tab PRN Q8HRS PRN PO PAIN; Start 05/10/16 at 16:45 Metoprolol Succinate (Toprol Xl) 200 mg DAILY PO Last administered on 08:58; Start 05/10/16 at 17:00 Albuterol/ Ipratropium (Duoneb) 3 ml Q4HRS W/A NEB Last administered on 07:14; Start 05/10/16 at 18:00; Stop 05/12/16 at 11:33; Status DC Lorazepam (Ativan) 1 mg PRN Q4HRS PRN IV ANXIETY / AGITATION Last administered on 05/14/16 16:58; Start 05/10/16 at 16:45 Alprazolam (Xanax) 2 mg PRN Q8HRS PRN PO ANXIETY / AGITATION Last administered on 05/12/16 09:08; Start 05/10/16 at 16:52 Hydromorphone HCl (Dilaudid) 0.8 mg PRN Q2HR PRN IVP PAIN Last administered on 05/14/16 16:33; Start 05/10/16 at 19:15 Labetalol HCl (Normodyne) 10 mg PRN Q2HR PRN IVP HYPERTENSION, SEE COMMENTS Last administered on 05/14/16 10:16; Start 05/10/16 at 19:15 Enalaprilat (Vasotec) 1.25 mg 1X ONCE IV Last administered on 05/10/16 20:01 ; Start 05/10/16 at 19:15; Stop 05/10/16 at 19:16; Status DC Info (Do NOT chart on this placeholder) 1 each 1X ONCE MC ; Start 05/10/16 at 22:15; Stop 05/10/16 at 22:16; Status UNV Influenza Virus Vaccine Quadrival (Fluarix Quad [id number] Syringe) 0.5 ml ONCE ONCE VAX IM ; Start 05/11/16 at 09:00; Stop 05/11/16 at 09:04; Status DC Vitamin B Complex (Folbic Tablet) 1 tab DAILY PO Last administered on 08:57; Start 05/12/16 at 09:00 Folic Acid (Folic Acid) 1 mg DAILY PO Last administered on 05/14/16 08:58; Start 05/12/16 at 09:00 Lidocaine (Lidoderm) 1 patch DAILY TD Last administered on 05/12/16 09:09; Start 05/11/16 at 13:00 Pantoprazole Sodium 40 mg 40 mg DAILYAC PO Last administered on 05/14/16 08:14 ; Start 05/11/16 at 16:30 Sodium Chloride 1,000 ml @ 1,000 mls/hr Q1H PRN IV hypotension; Start 05/11/16 at 19:17; Stop 05/12/16 at 01:16; Status DC Sodium Chloride (Iv Sodium Chloride 0.9% 1000ml Bag) 1,000 ml @ 400 mls/hr Q2H30M PRN IV PATENCY; Start 05/11/16 at 19:17; Stop 05/12/16 at 07:16; Status DC Info (PHARMACY MONITORING -- do not chart) 1 each PRN DAILY PRN MC SEE COMMENTS ; Start 05/11/16 at 19:30; Status UNV Diphenhydramine HCl (Benadryl) 50 mg STK-MED ONCE .ROUTE Last administered on 19:37; Start 05/11/16 at 19:37; Stop 05/11/16 at 19:38; Status DC Lidocaine HCl (Xylocaine-Mpf 1% Vial) 2 ml STK-MED ONCE .ROUTE Last administered on 05/11/16 19:37; Start 05/11/16 at 19:37; Stop 05/11/16 at 19:38 ; Status DC Diphenhydramine HCl (Benadryl) 25 mg PRN Q6HRS PRN IVP ITCHING Last administered on 05/14/16 07:34; Start 05/12/16 at 04:30; Stop 05/14/16 at 10:10 ; Status DC Albuterol/ Ipratropium (Duoneb) 3 ml BID NEB ; Start 05/12/16 at 21:00 Lidocaine HCl (Xylocaine-Mpf 1% Vial) 1 ml 1X STAT ID ; Start 05/12/16 at 11:32 ; Stop 05/12/16 at 11:41; Status DC Diphenhydramine HCl (Benadryl) 25 mg 1X PRN PRN IV ITCHING Last administered on 05/14/16 10:16; Start 05/12/16 at 11:45; Stop 05/13/16 at 11:44; Status DC Diphenhydramine HCl (Benadryl) 25 mg 1X PRN PRN IV ITCHING; Start 05/12/16 at 11:45; Stop 05/13/16 at 11:44; Status DC Info (PHARMACY MONITORING -- do not chart) 1 each PRN DAILY PRN MC SEE COMMENTS ; Start 05/12/16 at 11:45; Status UNV Info (PHARMACY MONITORING -- do not chart) 1 each PRN DAILY PRN MC SEE COMMENTS ; Start 05/12/16 at 11:45; Status UNV Calcium Acetate (Phoslo) 1,334 mg TIDWMEALS PO Last administered on 05/12/16 16:45; Start 05/12/16 at 17:00; Stop 05/14/16 at 13:31; Status DC Acetaminophen (Tylenol) 650 mg PRN Q6HRS PRN PO MILD PAIN / TEMP Last administered on 05/12/16 15:27; Start 05/12/16 at 15:30 Lidocaine HCl 1 ml 1 ml 1X ONCE ID ; Start 05/13/16 at 07:45; Stop 05/13/16 at 07:46; Status DC Sodium Chloride (Iv Sodium Chloride 0.9% 1000ml Bag) 1,000 ml @ 1,000 mls/hr Q1H PRN IV hypotension; Start 05/13/16 at 09:17; Stop 05/13/16 at 15:16; Status DC Diphenhydramine HCl (Benadryl) 25 mg 1X PRN PRN IV ITCHING; Start 05/13/16 at 09:30; Stop 05/13/16 at 19:00; Status DC Diphenhydramine HCl (Benadryl) 25 mg 1X PRN PRN IV ITCHING; Start 05/13/16 at 09:30; Stop 05/13/16 at 19:00; Status DC Info (PHARMACY MONITORING -- do not chart) 1 each PRN DAILY PRN MC SEE COMMENTS ; Start 05/13/16 at 09:30; Status UNV Info (PHARMACY MONITORING -- do not chart) 1 each PRN DAILY PRN MC SEE COMMENTS ; Start 05/13/16 at 09:30; Status UNV Polyethylene Glycol (miraLAX PACKET) 17 gm DAILY PO ; Start 05/14/16 at 12:00 Diphenhydramine HCl (Benadryl) 50 mg PRN Q6HRS PRN IVP ITCHING Last administered on 05/14/16 13:24; Start 05/14/16 at 10:15 Cinacalcet (Sensipar) 30 mg DAILY PO ; Start 05/15/16 at 09:00 Calcium Carbonate/ Glycine (Tums) 1,000 mg TIDAC PRN PO INDIGESTION; Start at 13:30; Stop 05/14/16 at 15:07; Status DC Lidocaine/Sodium Bicarbonate 20 ml 20 ml STK-MED ONCE IJ ; Start 05/14/16 at 14: 53; Stop 05/14/16 at 14:54; Status DC Heparin Sodium/ Sodium Chloride 500 ml @ As Directed STK-MED ONCE .ROUTE ; Start 05/14/16 at 14:53; Stop 05/14/16 at 14:54; Status DC Calcium Carbonate/ Glycine (Tums) 1,000 mg TIDAC PO Last administered on 16:53; Start 05/14/16 at 16:30 Midazolam HCl (Versed) 2 mg STK-MED ONCE .ROUTE ; Start 05/14/16 at 15:52; Stop 05/14/16 at 15:53; Status DC Iohexol (Omnipaque 300 Mg/ml) 50 ml STK-MED ONCE .ROUTE ; Start 05/14/16 at 16: 03; Stop 05/14/16 at 16:04; Status DC Midazolam HCl (Versed) 2 mg 1X ONCE IV Last administered on 05/14/16 16:15; Start 05/14/16 at 16:15; Stop 05/14/16 at 16:16; Status DC Iohexol (Omnipaque 300 Mg/ml) 50 ml 1X ONCE IART Last administered on 16:15; Start 2/24/17 at 16:15; Stop 05/14/16 at 16:16; Status DC Heparin Sodium/ Sodium Chloride 1,000 unit 1X ONCE IART Last administered on 16:14; Start 05/14/16 at 16:15; Stop 05/14/16 at 16:16; Status DC Lidocaine/Sodium Bicarbonate (Buffered Lidocaine 1%) 6 ml 1X ONCE IJ Last administered on 05/14/16 16:15; Start 05/14/16 at 16:15; Stop 05/14/16 at 16:16 ; Status DC Active Scripts Active Zofran Odt (Ondansetron) 4 Mg Tab.rapdis 1 Tab SL Q8HRS PRN Reported Percocet 7.5-325 Mg Tablet (Oxycodone/Acetaminophen) 1 Each Tablet 1 Tab PO PRN Q8HRS PRN Xanax (Alprazolam) 0.25 Mg Tablet 2 Mg PO TID PRN Metoprolol Succinate ( Xl ) (Metoprolol Succinate) 200 Mg Tab.er.24h 1 Tab PO DAILY Hydralazine Hcl 50 Mg Tablet 1 Tab PO TID Amlodipine Besylate 10 Mg Tablet 1 Tab PO DAILY Vitals/I & O Vital Sign - Last 24 Hours 05/13/16 05/13/16 05/13/16 05/13/16 19:00 20:00 20:16 20:17 Temp 98.4 98.4 Pulse 85 85 Resp 18 B/P 174/117 174/117 Pulse Ox 98 95 O2 Delivery Room Air Nasal Cannula Nasal Cannula O2 Flow Rate 2.0 2.0 05/13/16 05/14/16 05/14/16 05/14/16 23:00 00:20 03:00 04:43 Temp 98.5 99.0 98.5 99.0 Pulse 89 101 Resp 18 B/P 140/90 153/130 Pulse Ox 98 95 100 100 O2 Delivery High Flow Nasal Cannula Nasal Cannula High Flow Nasal Cannula Nasal Cannula O2 Flow Rate 2.0 2.0 05/14/16 05/14/16 05/14/16 05/14/16 05:13 07:00 08:00 08:54 Temp 98.5 98.5 Pulse 105 Resp 18 18 B/P 178/133 Pulse Ox 100 100 O2 Delivery Nasal Cannula Nasal Cannula Nasal Cannula O2 Flow Rate 2.0 2.0 2.0 05/14/16 05/14/16 05/14/16 05/14/16 08:58 08:59 08:59 09:24 Pulse 60 60 60 B/P 177/133 177/133 177/133 O2 Delivery Nasal Cannula 05/14/16 05/14/16 05/14/16 05/14/16 10:16 11:00 13:24 13:54 Temp 98.5 98.5 Pulse 109 107 Resp 18 18 18 B/P 171/126 159/114 Pulse Ox 99 O2 Delivery Nasal Cannula Nasal Cannula O2 Flow Rate 2.0 2.0 2.0 05/14/16 05/14/16 05/14/16 05/14/16 15:00 16:00 16:01 16:07 Temp 98.3 98.3 Pulse 100 98 98 98 Resp 18 18 18 18 B/P 148/109 Pulse Ox 92 98 98 98 O2 Delivery Nasal Cannula Nasal Cannula Nasal Cannula Nasal Cannula O2 Flow Rate 2.0 2.0 2.0 2.0 05/14/16 05/14/16 05/14/16 16:16 16:32 16:33 Pulse 99 109 Resp 18 18 B/P 170/119 Pulse Ox 98 O2 Delivery Nasal Cannula Nasal Cannula O2 Flow Rate 2.0 2.0 Intake and Output 05/13/16 05/13/16 05/14/16 15:00 23:00 07:00 Intake Total 250 ml 850 ml 240 ml Output Total 0 ml 0 ml Balance 250 ml 850 ml 240 ml DOLORES SCHULTZ MD May 14, 2016 17:51
[2016-05-15] MEDS: HYDROMORPHONE 2 MG/ML VIAL. IVP PRN ×3 (00:58→07:31)
[2016-05-15] MEDS: LORAZEPAM 2 MG/ML VIAL IV PRN ×2 (00:58→05:17)
[2016-05-15] MEDS: DIPHENHYDRAMINE 50 MG/ML VIAL IVP PRN (01:20)
[2016-05-15 03:00] VITALS: BP 213/112
[2016-05-15] MEDS: LABETALOL 20 MG/4 ML DISP.SYRIN. IVP PRN (03:41)
[2016-05-15] MEDS: ACETAMINOPHEN 325 MG TABLET. PO PRN (05:17)
[2016-05-15 07:00] VITALS: BP 215/115
[2016-05-15 08:44] LABS: ALBUMIN 3.3 g/dL (3.4-5.0); CALCIUM 9.4 mg/dL (8.5-10.1); CREATININE 4.1 mg/dL (0.6-1.0)
[2016-05-15 08:45] LABS: GFR 13.2
[2016-05-15] MEDS ORDERED: IV NORMAL SALINE 1000ML BAG 1,000 ML IV PRN (08:54)
[2016-05-15] MEDS ORDERED: CINACALCET HCL 30 MG TABLET PO SCH (09:00)
[2016-05-15] MEDS ORDERED: DIALYSIS PATIENT. MC PRN ×2 (09:00)
[2016-05-15] MEDS ORDERED: DIPHENHYDRAMINE 50 MG/ML VIAL IV PRN ×2 (09:00)
[2016-05-15] MEDS: HYDRALAZINE 50 MG TABLET PO SCH (09:00)
--- NOTE | 2016-05-15 09:37 | PDOC ---
PROGRESS NOTES Chief Complaint Chief Complaint Abd pain Acute hypoxic respiratory failure ASSESSMENT AND PLAN: 1. CHF exacerbation: resolved 2. Abd pain/N/V: viral syndrome (resolved) on chronic pain 3. Hyperkalemia: resolved 4. Hyperphosphatemia: managed w/ HD 5. ESRD: on HD 6. Anemia of CKD: stable 7. Hyperparathyroidism: ESRD related 8. HTN: poorly controlled on multi-drug regimen. increase hydralazine to 100 tid 9. Anxiety: on ativan, wants IV rather than PO despite PO food intake ADDENDUM: pt decided to leave AMA: "if i don't get IV pain meds, I might as well go home" History of Present Illness History of Present Illness Vitals Vitals Vital Signs Date Time Temp Pulse Resp B/P Pulse Ox O2 Delivery O2 Flow Rate FiO2 05/15/16 07:31 98 Nasal Cannula 2.0 05/15/16 07:00 97.0 90 20 215/115 97.0 Physical Exam General: Alert, Oriented X3, Cooperative, No acute distress Heart: Regular rate, Normal S1, Normal S2, No murmurs Lungs: Other (No wheezing) Abdomen: Normal bowel sounds, Soft, No tenderness Extremities: No clubbing, No cyanosis, Normal pulses, Other (Tr Le edema) Skin: No rashes, No significant lesion Labs LABS Laboratory Tests Test 05/15/16 08:05 Sodium Level 136mmol/L (136-145) Potassium Level 5.0mmol/L (3.5-5.1) Chloride Level 98mmol/L (98-107) Carbon Dioxide Level 26mmol/L (21-32) Anion Gap 12 (6-14) Blood Urea Nitrogen 42mg/dL (7-20) Creatinine 4.1mg/dL (0.6-1.0) Estimated GFR (Cockcroft-Gault) 13.2 Glucose Level 115mg/dL (70-99) Calcium Level 9.4mg/dL (8.5-10.1) Phosphorus Level 6.0mg/dL (2.6-4.7) Albumin 3.3g/dL (3.4-5.0) Review of Systems Review of Systems c/o severe abd pain, but moves in bed w/o any restrictions or signs of discomfort Comment Review of Relevant I have reviewed the following items lynnette (where applicable) has been applied. Labs Laboratory Tests Test 05/15/16 08:05 Sodium Level 136mmol/L (136-145) Potassium Level 5.0mmol/L (3.5-5.1) Chloride Level 98mmol/L (98-107) Carbon Dioxide Level 26mmol/L (21-32) Anion Gap 12 (6-14) Blood Urea Nitrogen 42mg/dL (7-20) Creatinine 4.1mg/dL (0.6-1.0) Estimated GFR (Cockcroft-Gault) 13.2 Glucose Level 115mg/dL (70-99) Calcium Level 9.4mg/dL (8.5-10.1) Phosphorus Level 6.0mg/dL (2.6-4.7) Albumin 3.3g/dL (3.4-5.0) Laboratory Tests Test 05/15/16 08:05 Sodium Level 136mmol/L (136-145) Potassium Level 5.0mmol/L (3.5-5.1) Chloride Level 98mmol/L (98-107) Carbon Dioxide Level 26mmol/L (21-32) Anion Gap 12 (6-14) Blood Urea Nitrogen 42mg/dL (7-20) Creatinine 4.1mg/dL (0.6-1.0) Estimated GFR (Cockcroft-Gault) 13.2 Glucose Level 115mg/dL (70-99) Calcium Level 9.4mg/dL (8.5-10.1) Phosphorus Level 6.0mg/dL (2.6-4.7) Albumin 3.3g/dL (3.4-5.0) Medications Current Medications Fentanyl Citrate (Fentanyl 2ml Vial) 50 mcg PRN Q15MIN PRN IV PAIN GREATER THAN 3/10 Last administered on 05/10/16 13:38; Start 05/10/16 at 12:30; Stop at 12:29; Status DC Nitroglycerin (Nitrostat) 0.4 mg PRN Q5MIN PRN SL CHEST PAIN Last administered on 05/10/16 12:55; Start 05/10/16 at 12:30 Lorazepam (Ativan) 1 mg 1X ONCE IV Last administered on 05/10/16 12:58; Start 05/10/16 at 12:45; Stop 05/10/16 at 12:46; Status DC Diltiazem HCl (Cardizem) 30 mg 1X ONCE PO ; Start 05/10/16 at 14:15; Stop 05/10 at 14:22; Status DC Diphenhydramine HCl (Benadryl) 25 mg 1X PRN PRN IV ITCHING Last administered on 05/10/16 14:58; Start 05/10/16 at 14:45; Stop 05/11/16 at 14:44; Status DC Diphenhydramine HCl (Benadryl) 25 mg 1X PRN PRN IV ITCHING Last administered on 05/10/16 15:09; Start 05/10/16 at 14:45; Stop 05/11/16 at 14:44; Status DC Info (PHARMACY MONITORING -- do not chart) 1 each PRN DAILY PRN MC SEE COMMENTS ; Start 05/10/16 at 14:45; Status UNV Info 1 each 1 each PRN DAILY PRN MC SEE COMMENTS; Start 05/10/16 at 14:45 Magnesium Sulfate/ Dextrose (Magnesium Sulfate PREMIX 2GM) 50 ml @ 25 mls/hr PRN DAILY PRN IV for Mag < 1.7 on am labs; Start 05/10/16 at 15:00 Darbepoetin Jude (Aranesp) 60 mcg WEEKLYHS SQ ; Start 05/10/16 at 21:00 Labetalol HCl (Normodyne) 10 mg PRN Q1HR PRN IVP SBP > 180 Last administered on 05/10/16 16:35; Start 05/10/16 at 15:15; Stop 05/11/16 at 15:14; Status DC Alprazolam (Xanax) 2 mg PRN TID PRN PO ANXIETY / AGITATION; Start 05/10/16 at 16:45; Stop 05/10/16 at 16:52; Status DC Amlodipine Besylate (Norvasc) 10 mg DAILY PO Last administered on 05/14/16 08: 59; Start 05/10/16 at 17:00 Hydralazine HCl (Apresoline) 50 mg TID PO Last administered on 05/14/16 20:45 ; Start 05/10/16 at 21:00 Ondansetron HCl (Zofran Odt) 4 mg PRN Q8HRS PRN PO NAUSEA Last administered on 05/11/16 17:55; Start 05/10/16 at 16:45 Oxycodone/ Acetaminophen (Percocet 7.5/ 325) 1 tab PRN Q8HRS PRN PO PAIN; Start 05/10/16 at 16:45 Metoprolol Succinate (Toprol Xl) 200 mg DAILY PO Last administered on 08:58; Start 05/10/16 at 17:00 Albuterol/ Ipratropium (Duoneb) 3 ml Q4HRS W/A NEB Last administered on 07:14; Start 05/10/16 at 18:00; Stop 05/12/16 at 11:33; Status DC Lorazepam (Ativan) 1 mg PRN Q4HRS PRN IV ANXIETY / AGITATION Last administered on 05/15/16 05:17; Start 05/10/16 at 16:45 Alprazolam (Xanax) 2 mg PRN Q8HRS PRN PO ANXIETY / AGITATION Last administered on 05/12/16 09:08; Start 05/10/16 at 16:52 Hydromorphone HCl (Dilaudid) 0.8 mg PRN Q2HR PRN IVP PAIN Last administered on 05/15/16 07:31; Start 05/10/16 at 19:15 Labetalol HCl (Normodyne) 10 mg PRN Q2HR PRN IVP HYPERTENSION, SEE COMMENTS Last administered on 05/15/16 03:41; Start 05/10/16 at 19:15 Enalaprilat (Vasotec) 1.25 mg 1X ONCE IV Last administered on 05/10/16 20:01 ; Start 05/10/16 at 19:15; Stop 05/10/16 at 19:16; Status DC Info (Do NOT chart on this placeholder) 1 each 1X ONCE MC ; Start 05/10/16 at 22:15; Stop 05/10/16 at 22:16; Status UNV Influenza Virus Vaccine Quadrival (Fluarix Quad [id number] Syringe) 0.5 ml ONCE ONCE VAX IM ; Start 05/11/16 at 09:00; Stop 05/11/16 at 09:04; Status DC Vitamin B Complex (Folbic Tablet) 1 tab DAILY PO Last administered on 08:57; Start 05/12/16 at 09:00 Folic Acid (Folic Acid) 1 mg DAILY PO Last administered on 05/14/16 08:58; Start 05/12/16 at 09:00 Lidocaine (Lidoderm) 1 patch DAILY TD Last administered on 05/12/16 09:09; Start 05/11/16 at 13:00 Pantoprazole Sodium 40 mg 40 mg DAILYAC PO Last administered on 05/14/16 08:14 ; Start 05/11/16 at 16:30 Sodium Chloride 1,000 ml @ 1,000 mls/hr Q1H PRN IV hypotension; Start 05/11/16 at 19:17; Stop 05/12/16 at 01:16; Status DC Sodium Chloride (Iv Sodium Chloride 0.9% 1000ml Bag) 1,000 ml @ 400 mls/hr Q2H30M PRN IV PATENCY; Start 05/11/16 at 19:17; Stop 05/12/16 at 07:16; Status DC Info (PHARMACY MONITORING -- do not chart) 1 each PRN DAILY PRN MC SEE COMMENTS ; Start 05/11/16 at 19:30; Status UNV Diphenhydramine HCl (Benadryl) 50 mg STK-MED ONCE .ROUTE Last administered on 19:37; Start 05/11/16 at 19:37; Stop 05/11/16 at 19:38; Status DC Lidocaine HCl (Xylocaine-Mpf 1% Vial) 2 ml STK-MED ONCE .ROUTE Last administered on 05/11/16 19:37; Start 05/11/16 at 19:37; Stop 05/11/16 at 19:38 ; Status DC Diphenhydramine HCl (Benadryl) 25 mg PRN Q6HRS PRN IVP ITCHING Last administered on 05/14/16 07:34; Start 05/12/16 at 04:30; Stop 05/14/16 at 10:10 ; Status DC Albuterol/ Ipratropium (Duoneb) 3 ml BID NEB ; Start 05/12/16 at 21:00 Lidocaine HCl (Xylocaine-Mpf 1% Vial) 1 ml 1X STAT ID ; Start 05/12/16 at 11:32 ; Stop 05/12/16 at 11:41; Status DC Diphenhydramine HCl (Benadryl) 25 mg 1X PRN PRN IV ITCHING Last administered on 05/14/16 10:16; Start 05/12/16 at 11:45; Stop 05/13/16 at 11:44; Status DC Diphenhydramine HCl (Benadryl) 25 mg 1X PRN PRN IV ITCHING; Start 05/12/16 at 11:45; Stop 05/13/16 at 11:44; Status DC Info (PHARMACY MONITORING -- do not chart) 1 each PRN DAILY PRN MC SEE COMMENTS ; Start 05/12/16 at 11:45; Status UNV Info (PHARMACY MONITORING -- do not chart) 1 each PRN DAILY PRN MC SEE COMMENTS ; Start 05/12/16 at 11:45; Status UNV Calcium Acetate (Phoslo) 1,334 mg TIDWMEALS PO Last administered on 05/12/16 16:45; Start 05/12/16 at 17:00; Stop 05/14/16 at 13:31; Status DC Acetaminophen (Tylenol) 650 mg PRN Q6HRS PRN PO MILD PAIN / TEMP Last administered on 05/15/16 05:17; Start 05/12/16 at 15:30 Lidocaine HCl 1 ml 1 ml 1X ONCE ID ; Start 05/13/16 at 07:45; Stop 05/13/16 at 07:46; Status DC Sodium Chloride (Iv Sodium Chloride 0.9% 1000ml Bag) 1,000 ml @ 1,000 mls/hr Q1H PRN IV hypotension; Start 05/13/16 at 09:17; Stop 05/13/16 at 15:16; Status DC Diphenhydramine HCl (Benadryl) 25 mg 1X PRN PRN IV ITCHING; Start 05/13/16 at 09:30; Stop 05/13/16 at 19:00; Status DC Diphenhydramine HCl (Benadryl) 25 mg 1X PRN PRN IV ITCHING; Start 05/13/16 at 09:30; Stop 05/13/16 at 19:00; Status DC Info (PHARMACY MONITORING -- do not chart) 1 each PRN DAILY PRN MC SEE COMMENTS ; Start 05/13/16 at 09:30; Status UNV Info (PHARMACY MONITORING -- do not chart) 1 each PRN DAILY PRN MC SEE COMMENTS ; Start 05/13/16 at 09:30; Status UNV Polyethylene Glycol (miraLAX PACKET) 17 gm DAILY PO ; Start 05/14/16 at 12:00 Diphenhydramine HCl (Benadryl) 50 mg PRN Q6HRS PRN IVP ITCHING Last administered on 05/15/16 01:20; Start 05/14/16 at 10:15 Cinacalcet (Sensipar) 30 mg DAILY PO ; Start 05/15/16 at 09:00 Calcium Carbonate/ Glycine (Tums) 1,000 mg TIDAC PRN PO INDIGESTION; Start at 13:30; Stop 05/14/16 at 15:07; Status DC Lidocaine/Sodium Bicarbonate 20 ml 20 ml STK-MED ONCE IJ ; Start 05/14/16 at 14: 53; Stop 05/14/16 at 14:54; Status DC Heparin Sodium/ Sodium Chloride 500 ml @ As Directed STK-MED ONCE .ROUTE ; Start 05/14/16 at 14:53; Stop 05/14/16 at 14:54; Status DC Calcium Carbonate/ Glycine (Tums) 1,000 mg TIDAC PO Last administered on 16:53; Start 05/14/16 at 16:30 Midazolam HCl (Versed) 2 mg STK-MED ONCE .ROUTE ; Start 05/14/16 at 15:52; Stop 05/14/16 at 15:53; Status DC Iohexol (Omnipaque 300 Mg/ml) 50 ml STK-MED ONCE .ROUTE ; Start 05/14/16 at 16: 03; Stop 05/14/16 at 16:04; Status DC Midazolam HCl (Versed) 2 mg 1X ONCE IV Last administered on 05/14/16 16:15; Start 05/14/16 at 16:15; Stop 05/14/16 at 16:16; Status DC Iohexol (Omnipaque 300 Mg/ml) 50 ml 1X ONCE IART Last administered on 16:15; Start 05/14/16 at 16:15; Stop 05/14/16 at 16:16; Status DC Heparin Sodium/ Sodium Chloride 1,000 unit 1X ONCE IART Last administered on 16:14; Start 05/14/16 at 16:15; Stop 05/14/16 at 16:16; Status DC Lidocaine/Sodium Bicarbonate 6 ml 6 ml 1X ONCE IJ Last administered on 16:15; Start 05/14/16 at 16:15; Stop 05/14/16 at 16:16; Status DC Sodium Chloride (Iv Sodium Chloride 0.9% 1000ml Bag) 1,000 ml @ 1,000 mls/hr Q1H PRN IV hypotension; Start 05/15/16 at 08:54; Stop 05/15/16 at 14:53 Diphenhydramine HCl (Benadryl) 25 mg 1X PRN PRN IV ITCHING; Start 05/15/16 at 09:00; Stop 05/16/16 at 08:59 Diphenhydramine HCl (Benadryl) 25 mg 1X PRN PRN IV ITCHING; Start 05/15/16 at 09:00; Stop 05/16/16 at 08:59 Info (PHARMACY MONITORING -- do not chart) 1 each PRN DAILY PRN MC SEE COMMENTS ; Start 05/15/16 at 09:00; Stop 05/15/16 at 09:00; Status DC Info (PHARMACY MONITORING -- do not chart) 1 each PRN DAILY PRN MC SEE COMMENTS ; Start 05/15/16 at 09:00 Active Scripts Active Zofran Odt (Ondansetron) 4 Mg Tab.rapdis 1 Tab SL Q8HRS PRN Reported Percocet 7.5-325 Mg Tablet (Oxycodone/Acetaminophen) 1 Each Tablet 1 Tab PO PRN Q8HRS PRN Xanax (Alprazolam) 0.25 Mg Tablet 2 Mg PO TID PRN Metoprolol Succinate ( Xl ) (Metoprolol Succinate) 200 Mg Tab.er.24h 1 Tab PO DAILY Hydralazine Hcl 50 Mg Tablet 1 Tab PO TID Amlodipine Besylate 10 Mg Tablet 1 Tab PO DAILY Vitals/I & O Vital Sign - Last 24 Hours 05/14/16 05/14/16 05/14/16 05/14/16 10:16 11:00 13:24 15:00 Temp 98.5 98.3 98.5 98.3 Pulse 109 107 100 Resp 18 18 18 B/P 171/126 159/114 148/109 Pulse Ox 99 92 O2 Delivery Nasal Cannula Nasal Cannula Nasal Cannula O2 Flow Rate 2.0 2.0 2.0 05/14/16 05/14/16 05/14/16 05/14/16 16:00 16:01 16:07 16:16 Pulse 98 98 98 99 Resp 18 18 18 18 Pulse Ox 98 98 98 98 O2 Delivery Nasal Cannula Nasal Cannula Nasal Cannula Nasal Cannula O2 Flow Rate 2.0 2.0 2.0 2.0 05/14/16 05/14/16 05/14/16 05/14/16 16:32 16:33 17:03 18:20 Pulse 109 Resp 18 18 18 B/P 170/119 O2 Delivery Nasal Cannula Room Air O2 Flow Rate 2.0 05/14/16 05/14/16 05/14/16 05/14/16 19:00 20:00 20:45 20:46 Temp 96.9 96.9 Pulse 101 92 Resp 18 B/P 222/108 222/118 Pulse Ox 93 98 O2 Delivery Nasal Cannula Nasal Cannula Nasal Cannula O2 Flow Rate 2.0 2.0 2.0 05/14/16 05/14/16 05/14/16 05/15/16 20:46 22:53 23:00 00:58 Temp 98.3 98.3 Pulse 96 Resp 18 B/P 222/118 108/105 Pulse Ox 98 94 98 O2 Delivery Nasal Cannula Nasal Cannula Nasal Cannula O2 Flow Rate 2.0 2.0 2.0 05/15/16 05/15/16 05/15/16 05/15/16 03:00 03:09 03:39 03:41 Temp 98.3 98.3 Pulse 93 93 Resp 18 B/P 213/112 213/112 Pulse Ox 90 98 98 O2 Delivery Nasal Cannula Nasal Cannula Nasal Cannula O2 Flow Rate 2.0 2.0 2.0 05/15/16 05/15/16 07:00 07:31 Temp 97.0 97.0 Pulse 90 Resp 20 B/P 215/115 Pulse Ox 98 98 O2 Delivery Room Air Nasal Cannula O2 Flow Rate 2.0 Intake and Output 05/14/16 05/14/16 05/15/16 15:00 23:00 07:00 Intake Total 250 ml 690 ml Balance 250 ml 690 ml ENOC BURROWS MD May 15, 2016 09:37
[2016-05-15 11:00] VITALS: BP 233/128
--- NOTE | 2016-05-15 11:04 | RAD ---
Ultrasound and fluoro guided midline power PICC insertion, with right upper extremity venogram Indication: 26-year-old female with a known chronic central venous occlusion and with poor peripheral IV access. Midline PICC insertion has been requested for IV analgesia, for blood draws, and preoperative hip surgery. Fluoro time: 0.9 minutes Kerma-Area Product: 9 Gycm2 Anesthesia: 1 mg Versed was given IV for anxiolysis. No moderate sedation was utilized. Contrast material: 11 cc Omnipaque 300. Sterility: All elements of maximal sterile barrier technique were utilized, including cap, mask, sterile gown, sterile gloves, large sterile sheet, appropriate hand hygiene, and 2% chlorhexidine for cutaneous antisepsis Procedure: Informed consent was obtained from the patient. She was placed supine on the angiography table. Preliminary ultrasound examination of right upper arm revealed wide patency of right brachial vein, which was documented with a hard copy ultrasound image. Right upper arm was then prepped and draped in the usual sterile fashion, utilizing all elements of maximal sterile barrier technique, as described above. Using aseptic technique, local anesthesia, direct ultrasound guidance, and the micropuncture system, successful percutaneous entry was achieved into right brachial vein at the level of distal humerus. However, no guidewire could be advanced centrally beyond the mid right axillary vein. Omnipaque 300 was injected through the peel-away sheath and right upper extremity venogram images were obtained. Those images confirmed wide patency of right brachial vein, followed by abrupt, complete occlusion at mid axillary vein. There was absent opacification of right subclavian vein and innominate vein. Venous outflow from right upper extremity is predominantly via enlarged serpiginous lateral thoracic veins to enlarged intercostal vein to azygos vein to superior vena cava. A 5 [place] dual lumen power PICC was then trimmed to 17 cm in length and was inserted through the peel-away sheath. Tip of the midline power PICC was positioned at brachial vein-axillary vein junction. Satisfactory midline position was confirmed with contrast injection and fluoroscopic spot images. The midline power PICC was then demonstrated to flush and aspirate normally and was secured at the skin exit site utilizing suture and sterile dressing. Recent tolerated the procedure well without apparent complication. Impression: Successful, uneventful ultrasound and fluoro guided placement of right brachial vein 5 [place] dual-lumen 17 cm midline power PICC, following right upper extremity venogram, as described. This midline power PICC is okay to use for blood draws and 4 non-hypertonic infusions.
--- NOTE | 2016-05-15 12:04 | PDOC ---
PROGRESS NOTES Subjective Subjective She is considering leaving if she does not get IV narcotics. Objective Objective Vital Signs Date Time Temp Pulse Resp B/P Pulse Ox O2 Delivery O2 Flow Rate FiO2 05/15/16 11:00 100.8 102 18 233/128 98 Room Air 100.8 05/15/16 07:31 2.0 Intake and Output 05/15/16 07:00 Intake Total 940 ml Balance 940 ml Intake Oral 940 ml # Voids 1 Physical Exam Physical Exam She is sitting in bed and does not seem to be in any acute distress.She is not getting up much. Assessment Assessment Problems Medical Problems: (1) Abdominal pain Status: Acute (2) ESRD (end stage renal disease) Status: Acute (3) Respiratory failure Status: Acute Plan Plan of Care Agree with plans for discontinuation of parenteral narcotics. Comment Review of Relevant I have reviewed the following items lynnette (where applicable) has been applied. Labs Laboratory Tests Test 05/15/16 08:05 Sodium Level 136mmol/L (136-145) Potassium Level 5.0mmol/L (3.5-5.1) Chloride Level 98mmol/L (98-107) Carbon Dioxide Level 26mmol/L (21-32) Anion Gap 12 (6-14) Blood Urea Nitrogen 42mg/dL (7-20) Creatinine 4.1mg/dL (0.6-1.0) Estimated GFR (Cockcroft-Gault) 13.2 Glucose Level 115mg/dL (70-99) Calcium Level 9.4mg/dL (8.5-10.1) Phosphorus Level 6.0mg/dL (2.6-4.7) Albumin 3.3g/dL (3.4-5.0) Laboratory Tests Test 05/15/16 08:05 Sodium Level 136mmol/L (136-145) Potassium Level 5.0mmol/L (3.5-5.1) Chloride Level 98mmol/L (98-107) Carbon Dioxide Level 26mmol/L (21-32) Anion Gap 12 (6-14) Blood Urea Nitrogen 42mg/dL (7-20) Creatinine 4.1mg/dL (0.6-1.0) Estimated GFR (Cockcroft-Gault) 13.2 Glucose Level 115mg/dL (70-99) Calcium Level 9.4mg/dL (8.5-10.1) Phosphorus Level 6.0mg/dL (2.6-4.7) Albumin 3.3g/dL (3.4-5.0) Medications Current Medications Fentanyl Citrate (Fentanyl 2ml Vial) 50 mcg PRN Q15MIN PRN IV PAIN GREATER THAN 3/10 Last administered on 05/10/16 13:38; Start 05/10/16 at 12:30; Stop at 12:29; Status DC Nitroglycerin (Nitrostat) 0.4 mg PRN Q5MIN PRN SL CHEST PAIN Last administered on 05/10/16 12:55; Start 05/10/16 at 12:30 Lorazepam (Ativan) 1 mg 1X ONCE IV Last administered on 05/10/16 12:58; Start 05/10/16 at 12:45; Stop 05/10/16 at 12:46; Status DC Diltiazem HCl (Cardizem) 30 mg 1X ONCE PO ; Start 05/10/16 at 14:15; Stop 05/10 at 14:22; Status DC Diphenhydramine HCl (Benadryl) 25 mg 1X PRN PRN IV ITCHING Last administered on 05/10/16 14:58; Start 05/10/16 at 14:45; Stop 05/11/16 at 14:44; Status DC Diphenhydramine HCl (Benadryl) 25 mg 1X PRN PRN IV ITCHING Last administered on 05/10/16 15:09; Start 05/10/16 at 14:45; Stop 05/11/16 at 14:44; Status DC Info (PHARMACY MONITORING -- do not chart) 1 each PRN DAILY PRN MC SEE COMMENTS ; Start 05/10/16 at 14:45; Status UNV Info 1 each 1 each PRN DAILY PRN MC SEE COMMENTS; Start 05/10/16 at 14:45 Magnesium Sulfate/ Dextrose (Magnesium Sulfate PREMIX 2GM) 50 ml @ 25 mls/hr PRN DAILY PRN IV for Mag < 1.7 on am labs; Start 05/10/16 at 15:00 Darbepoetin Jude (Aranesp) 60 mcg WEEKLYHS SQ ; Start 05/10/16 at 21:00 Labetalol HCl (Normodyne) 10 mg PRN Q1HR PRN IVP SBP > 180 Last administered on 05/10/16 16:35; Start 05/10/16 at 15:15; Stop 05/11/16 at 15:14; Status DC Alprazolam (Xanax) 2 mg PRN TID PRN PO ANXIETY / AGITATION; Start 05/10/16 at 16:45; Stop 05/10/16 at 16:52; Status DC Amlodipine Besylate (Norvasc) 10 mg DAILY PO Last administered on 05/14/16 08: 59; Start 05/10/16 at 17:00 Hydralazine HCl (Apresoline) 50 mg TID PO Last administered on 05/14/16 20:45 ; Start 05/10/16 at 21:00; Stop 05/15/16 at 09:33; Status DC Ondansetron HCl (Zofran Odt) 4 mg PRN Q8HRS PRN PO NAUSEA Last administered on 05/11/16 17:55; Start 05/10/16 at 16:45 Oxycodone/ Acetaminophen (Percocet 7.5/ 325) 1 tab PRN Q8HRS PRN PO PAIN; Start 05/10/16 at 16:45 Metoprolol Succinate (Toprol Xl) 200 mg DAILY PO Last administered on 08:58; Start 05/10/16 at 17:00 Albuterol/ Ipratropium (Duoneb) 3 ml Q4HRS W/A NEB Last administered on 07:14; Start 05/10/16 at 18:00; Stop 05/12/16 at 11:33; Status DC Lorazepam (Ativan) 1 mg PRN Q4HRS PRN IV ANXIETY / AGITATION Last administered on 05/15/16 05:17; Start 05/10/16 at 16:45; Stop 05/15/16 at 10:49; Status DC Alprazolam (Xanax) 2 mg PRN Q8HRS PRN PO ANXIETY / AGITATION Last administered on 05/12/16 09:08; Start 05/10/16 at 16:52 Hydromorphone HCl (Dilaudid) 0.8 mg PRN Q2HR PRN IVP PAIN Last administered on 05/15/16 07:31; Start 05/10/16 at 19:15; Stop 05/15/16 at 10:49; Status DC Labetalol HCl (Normodyne) 10 mg PRN Q2HR PRN IVP HYPERTENSION, SEE COMMENTS Last administered on 05/15/16 03:41; Start 05/10/16 at 19:15 Enalaprilat (Vasotec) 1.25 mg 1X ONCE IV Last administered on 05/10/16 20:01 ; Start 05/10/16 at 19:15; Stop 05/10/16 at 19:16; Status DC Info (Do NOT chart on this placeholder) 1 each 1X ONCE MC ; Start 05/10/16 at 22:15; Stop 05/10/16 at 22:16; Status UNV Influenza Virus Vaccine Quadrival (Fluarix Quad [id number] Syringe) 0.5 ml ONCE ONCE VAX IM ; Start 05/11/16 at 09:00; Stop 05/11/16 at 09:04; Status DC Vitamin B Complex (Folbic Tablet) 1 tab DAILY PO Last administered on 08:57; Start 05/12/16 at 09:00 Folic Acid (Folic Acid) 1 mg DAILY PO Last administered on 05/14/16 08:58; Start 05/12/16 at 09:00 Lidocaine (Lidoderm) 1 patch DAILY TD Last administered on 05/12/16 09:09; Start 05/11/16 at 13:00 Pantoprazole Sodium 40 mg 40 mg DAILYAC PO Last administered on 05/14/16 08:14 ; Start 05/11/16 at 16:30 Sodium Chloride 1,000 ml @ 1,000 mls/hr Q1H PRN IV hypotension; Start 05/11/16 at 19:17; Stop 05/12/16 at 01:16; Status DC Sodium Chloride (Iv Sodium Chloride 0.9% 1000ml Bag) 1,000 ml @ 400 mls/hr Q2H30M PRN IV PATENCY; Start 05/11/16 at 19:17; Stop 05/12/16 at 07:16; Status DC Info (PHARMACY MONITORING -- do not chart) 1 each PRN DAILY PRN MC SEE COMMENTS ; Start 05/11/16 at 19:30; Status UNV Diphenhydramine HCl (Benadryl) 50 mg STK-MED ONCE .ROUTE Last administered on 19:37; Start 05/11/16 at 19:37; Stop 05/11/16 at 19:38; Status DC Lidocaine HCl (Xylocaine-Mpf 1% Vial) 2 ml STK-MED ONCE .ROUTE Last administered on 05/11/16 19:37; Start 05/11/16 at 19:37; Stop 05/11/16 at 19:38 ; Status DC Diphenhydramine HCl (Benadryl) 25 mg PRN Q6HRS PRN IVP ITCHING Last administered on 05/14/16 07:34; Start 05/12/16 at 04:30; Stop 05/14/16 at 10:10 ; Status DC Albuterol/ Ipratropium (Duoneb) 3 ml BID NEB ; Start 05/12/16 at 21:00 Lidocaine HCl (Xylocaine-Mpf 1% Vial) 1 ml 1X STAT ID ; Start 05/12/16 at 11:32 ; Stop 05/12/16 at 11:41; Status DC Diphenhydramine HCl (Benadryl) 25 mg 1X PRN PRN IV ITCHING Last administered on 05/14/16 10:16; Start 05/12/16 at 11:45; Stop 05/13/16 at 11:44; Status DC Diphenhydramine HCl (Benadryl) 25 mg 1X PRN PRN IV ITCHING; Start 05/12/16 at 11:45; Stop 05/13/16 at 11:44; Status DC Info (PHARMACY MONITORING -- do not chart) 1 each PRN DAILY PRN MC SEE COMMENTS ; Start 05/12/16 at 11:45; Status UNV Info (PHARMACY MONITORING -- do not chart) 1 each PRN DAILY PRN MC SEE COMMENTS ; Start 05/12/16 at 11:45; Status UNV Calcium Acetate (Phoslo) 1,334 mg TIDWMEALS PO Last administered on 05/12/16 16:45; Start 05/12/16 at 17:00; Stop 05/14/16 at 13:31; Status DC Acetaminophen (Tylenol) 650 mg PRN Q6HRS PRN PO MILD PAIN / TEMP Last administered on 2/25/17at 05:17; Start 05/12/16 at 15:30 Lidocaine HCl 1 ml 1 ml 1X ONCE ID ; Start 05/13/16 at 07:45; Stop 05/13/16 at 07:46; Status DC Sodium Chloride (Iv Sodium Chloride 0.9% 1000ml Bag) 1,000 ml @ 1,000 mls/hr Q1H PRN IV hypotension; Start 05/13/16 at 09:17; Stop 05/13/16 at 15:16; Status DC Diphenhydramine HCl (Benadryl) 25 mg 1X PRN PRN IV ITCHING; Start 05/13/16 at 09:30; Stop 05/13/16 at 19:00; Status DC Diphenhydramine HCl (Benadryl) 25 mg 1X PRN PRN IV ITCHING; Start 05/13/16 at 09:30; Stop 05/13/16 at 19:00; Status DC Info (PHARMACY MONITORING -- do not chart) 1 each PRN DAILY PRN MC SEE COMMENTS ; Start 05/13/16 at 09:30; Status UNV Info (PHARMACY MONITORING -- do not chart) 1 each PRN DAILY PRN MC SEE COMMENTS ; Start 05/13/16 at 09:30; Status UNV Polyethylene Glycol (miraLAX PACKET) 17 gm DAILY PO ; Start 05/14/16 at 12:00 Diphenhydramine HCl (Benadryl) 50 mg PRN Q6HRS PRN IVP ITCHING Last administered on 05/15/16 01:20; Start 05/14/16 at 10:15; Stop 05/15/16 at 10:49 ; Status DC Cinacalcet (Sensipar) 30 mg DAILY PO ; Start 05/15/16 at 09:00 Calcium Carbonate/ Glycine (Tums) 1,000 mg TIDAC PRN PO INDIGESTION; Start at 13:30; Stop 05/14/16 at 15:07; Status DC Lidocaine/Sodium Bicarbonate 20 ml 20 ml STK-MED ONCE IJ ; Start 05/14/16 at 14: 53; Stop 05/14/16 at 14:54; Status DC Heparin Sodium/ Sodium Chloride 500 ml @ As Directed STK-MED ONCE .ROUTE ; Start 05/14/16 at 14:53; Stop 05/14/16 at 14:54; Status DC Calcium Carbonate/ Glycine (Tums) 1,000 mg TIDAC PO Last administered on 16:53; Start 05/14/16 at 16:30 Midazolam HCl (Versed) 2 mg STK-MED ONCE .ROUTE ; Start 05/14/16 at 15:52; Stop 05/14/16 at 15:53; Status DC Iohexol (Omnipaque 300 Mg/ml) 50 ml STK-MED ONCE .ROUTE ; Start 05/14/16 at 16: 03; Stop 05/14/16 at 16:04; Status DC Midazolam HCl (Versed) 2 mg 1X ONCE IV Last administered on 05/14/16 16:15; Start 05/14/16 at 16:15; Stop 05/14/16 at 16:16; Status DC Iohexol (Omnipaque 300 Mg/ml) 50 ml 1X ONCE IART Last administered on 16:15; Start 05/14/16 at 16:15; Stop 05/14/16 at 16:16; Status DC Heparin Sodium/ Sodium Chloride 1,000 unit 1X ONCE IART Last administered on 16:14; Start 05/14/16 at 16:15; Stop 05/14/16 at 16:16; Status DC Lidocaine/Sodium Bicarbonate 6 ml 6 ml 1X ONCE IJ Last administered on 16:15; Start 05/14/16 at 16:15; Stop 05/14/16 at 16:16; Status DC Sodium Chloride (Iv Sodium Chloride 0.9% 1000ml Bag) 1,000 ml @ 1,000 mls/hr Q1H PRN IV hypotension; Start 05/15/16 at 08:54; Stop 05/15/16 at 14:53 Diphenhydramine HCl (Benadryl) 25 mg 1X PRN PRN IV ITCHING; Start 05/15/16 at 09:00; Stop 05/15/16 at 10:49; Status DC Diphenhydramine HCl (Benadryl) 25 mg 1X PRN PRN IV ITCHING; Start 05/15/16 at 09:00; Stop 05/15/16 at 10:49; Status DC Info (PHARMACY MONITORING -- do not chart) 1 each PRN DAILY PRN MC SEE COMMENTS ; Start 05/15/16 at 09:00; Stop 05/15/16 at 09:00; Status DC Info (PHARMACY MONITORING -- do not chart) 1 each PRN DAILY PRN MC SEE COMMENTS ; Start 05/15/16 at 09:00 Hydralazine HCl (Apresoline) 100 mg TID PO ; Start 05/15/16 at 14:00 Active Scripts Active Zofran Odt (Ondansetron) 4 Mg Tab.rapdis 1 Tab SL Q8HRS PRN Reported Percocet 7.5-325 Mg Tablet (Oxycodone/Acetaminophen) 1 Each Tablet 1 Tab PO PRN Q8HRS PRN Xanax (Alprazolam) 0.25 Mg Tablet 2 Mg PO TID PRN Metoprolol Succinate ( Xl ) (Metoprolol Succinate) 200 Mg Tab.er.24h 1 Tab PO DAILY Hydralazine Hcl 50 Mg Tablet 1 Tab PO TID Amlodipine Besylate 10 Mg Tablet 1 Tab PO DAILY Vitals/I & O Vital Sign - Last 24 Hours 05/14/16 05/14/16 05/14/16 05/14/16 13:24 15:00 16:00 16:01 Temp 98.3 98.3 Pulse 100 98 98 Resp 18 18 18 18 B/P 148/109 Pulse Ox 92 98 98 O2 Delivery Nasal Cannula Nasal Cannula Nasal Cannula Nasal Cannula O2 Flow Rate 2.0 2.0 2.0 2.0 05/14/16 05/14/16 05/14/16 05/14/16 16:07 16:16 16:32 16:33 Pulse 98 99 109 Resp 18 18 18 B/P 170/119 Pulse Ox 98 98 O2 Delivery Nasal Cannula Nasal Cannula Nasal Cannula O2 Flow Rate 2.0 2.0 2.0 05/14/16 05/14/16 05/14/16 05/14/16 17:03 18:20 19:00 20:00 Temp 96.9 96.9 Pulse 101 Resp 18 18 18 B/P 222/108 Pulse Ox 93 O2 Delivery Room Air Nasal Cannula Nasal Cannula O2 Flow Rate 2.0 2.0 05/14/16 05/14/16 05/14/16 05/14/16 20:45 20:46 20:46 22:53 Pulse 92 B/P 222/118 222/118 Pulse Ox 98 98 O2 Delivery Nasal Cannula Nasal Cannula O2 Flow Rate 2.0 2.0 05/14/16 05/15/16 05/15/16 05/15/16 23:00 00:58 03:00 03:09 Temp 98.3 98.3 98.3 98.3 Pulse 96 93 Resp 18 18 B/P 108/105 213/112 Pulse Ox 94 98 90 98 O2 Delivery Nasal Cannula Nasal Cannula Nasal Cannula Nasal Cannula O2 Flow Rate 2.0 2.0 2.0 2.0 05/15/16 05/15/16 05/15/16 05/15/16 03:39 03:41 07:00 07:31 Temp 97.0 97.0 Pulse 93 90 Resp 20 B/P 213/112 215/115 Pulse Ox 98 98 98 O2 Delivery Nasal Cannula Room Air Nasal Cannula O2 Flow Rate 2.0 2.0 05/15/16 11:00 Temp 100.8 100.8 Pulse 102 Resp 18 B/P 233/128 Pulse Ox 98 O2 Delivery Room Air Intake and Output 05/14/16 05/14/16 05/15/16 15:00 23:00 07:00 Intake Total 250 ml 690 ml Balance 250 ml 690 ml DOLORES SCHULTZ MD May 15, 2016 12:04
[2016-05-15] MEDS ORDERED: HYDRALAZINE 50 MG TABLET PO SCH (14:00)
== END 2016-05-15 12:10 | disposition left against medical advice (07) | DRG 291 ==
LOC: ER 10:55 → 2 SOUTH 13:00 → 5 NORTH 05-11 19:22
PROVIDERS: ADMIT Internal Medicine; ATTEND Internal Medicine
PROC: 5A1D60Z (ICD-10-PCS; principal; 2016-05-13)
PROC: 05HB33Z Insertion of Infusion Device into Right Basilic Vein, Percutaneous Approach (ICD-10-PCS; 2016-05-14)
PROC: B51M1ZA Fluoroscopy of Right Upper Extremity Veins using Low Osmolar Contrast, Guidance (ICD-10-PCS; 2016-05-14)
PROC: B51M1ZZ Fluoroscopy of Right Upper Extremity Veins using Low Osmolar Contrast (ICD-10-PCS; 2016-05-14)
DX: I13.2 Hypertensive heart and chronic kidney disease with heart failure and with stage 5 chronic kidney disease, or end stage renal disease (principal); I50.33 Acute on chronic diastolic (congestive) heart failure; J96.01 Acute respiratory failure with hypoxia; N18.6 End stage renal disease; E87.2 Acidosis; B34.9 Viral infection, unspecified; D63.1 Anemia in chronic kidney disease; E87.5 Hyperkalemia; F32.9 Major depressive disorder, single episode, unspecified; F12.90 Cannabis use, unspecified, uncomplicated; F41.0 Panic disorder [episodic paroxysmal anxiety]; K21.9 Gastro-esophageal reflux disease without esophagitis; K59.00 Constipation, unspecified; M19.90 Unspecified osteoarthritis, unspecified site; N25.0 Renal osteodystrophy; Z82.49 Family history of ischemic heart disease and other diseases of the circulatory system; Z87.01 Personal history of pneumonia (recurrent); Z88.2 Allergy status to sulfonamides; Z91.19 Patient's noncompliance with other medical treatment and regimen; Z99.2 Dependence on renal dialysis; Z88.8 Allergy status to other drugs, medicaments and biological substances
CPT/HCPCS: 36415; 36569; 70450; 71010; 73502; 74022; 74176; 75820; 76937; 77001; 80053; 80069; 82607; 82746; 83690; 83735; 84100; 84703; 85007; 85018; 85027; 93005; 93306; 94250; 94640; 94760; 96374; 96375; 96376; C1751; C1892; J1170; J1200; J2060; J2250; J3010; J3490; J7620; Q0162; Q9967; 99285-25

== ENCOUNTER 2016-05-15 18:09 | Inpatient (IN) | payer MEDICARE, OTHER ==
[2016-05-14 23:00] VITALS: BP 186/129
[~2016-05-15] VITALS: Ht 157.5 cm; Wt 48.8 kg
--- NOTE | 2016-05-15 18:51 | PHYS DOC ---
Past Medical History Past Medical History: Hypertension, Renal Failure, Seizure Additional Past Medical Histor: HEMODIAYLSIS,elevated phosporous Past Surgical History: , Other Additional Past Surgical Histo: AV shunt in left arm, dialysis cath, L. WRIST, left femur, PICC Alcohol Use: None Drug Use: Marijuana Adult General Chief Complaint Chief Complaint: ABDOMINAL PAIN HPI HPI Patient is a 26 year old female who presents with epigastric pain, nausea and vomiting. Patient was recently admitted to the hospital, and left AMA today she says because she did not have anyone to watch her daughter. She is back with continued abdominal pain and nausea and vomiting. Also of note, she was found to have a hip fracture. She says she does not have any meds for symptoms at home. Only other complaint is anxiety. Review of Systems Review of Systems Constitutional: Denies fever or chills Eyes: Denies change in visual acuity or eye pain HENT: Denies nasal congestion or sore throat Respiratory: Denies cough or shortness of breath Cardiovascular: Denies chest pain GI: Epigastric abdominal pain, nausea, vomiting. Denies bloody stools : Denies dysuria or hematuria Musculoskeletal: Denies back pain or joint pain Integument: Denies rash or skin lesions Neurologic: Denies headache, focal weakness or sensory changes Psych: Anxiety Current Medications Current Medications Current Medications Medications (Trade) Dose Ordered Sig/Rolly Start Time Stop Time Status Last Admin Dose Admin Alprazolam (Xanax) 2 mg PRN TID PRN 05/15/16 20:47 Hydralazine HCl (Apresoline) 10 mg 1X ONCE 05/15/16 19:00 05/15/16 19:01 DC 05/15/16 19:21 10 MG Lorazepam (Ativan) 1 mg 1X ONCE 05/15/16 19:45 05/15/16 19:46 DC 05/15/16 20:04 1 MG Morphine Sulfate 4 mg 1X ONCE 05/15/16 19:00 05/15/16 19:01 DC 05/15/16 19:19 4 MG Ondansetron HCl (Zofran Odt) 4 mg PRN Q8HRS PRN 05/15/16 20:45 Ondansetron HCl (Zofran) 4 mg 1X ONCE 05/15/16 19:00 05/15/16 19:01 DC 05/15/16 19:17 4 MG Oxycodone/ Acetaminophen (Percocet 7.5/ 325) 1 tab PRN Q8HRS PRN 05/15/16 20:45 Allergies Allergies Allergies Coded Allergies Type Severity Reaction Last Updated Verified Sulfa (Sulfonamide Antibiotics) Allergy Intermediate 07/07/14 Yes haloperidol Allergy Intermediate Anxiety 04/18/16 Yes Physical Exam Physical Exam Constitutional: Well developed, well nourished, non-toxic appearance HENT: Normocephalic, atraumatic, bilateral external ears normal Eyes: EOMI, conjunctiva normal, no discharge Neck: Normal range of motion, no stridor Cardiovascular: Tachycardic, regular rhythm, no murmur Lungs & Thorax: Bilateral breath sounds clear to auscultation Abdomen: Bowel sounds normal, soft, non-distended, epigastric TTP Skin: Warm, dry, no erythema, no rash Extremities: No edema Neurologic: Alert and oriented X 3, no gross deficits noted Psychologic: Anxious Current Patient Data Vital Signs Vital Signs Date Time Temp Pulse Resp B/P Pulse Ox O2 Delivery O2 Flow Rate FiO2 05/15/16 19:21 107 186/118 05/15/16 19:19 19 95 Room Air 05/15/16 18:09 99.9 99.9 Lab Values Laboratory Tests Test 05/15/16 18:20 White Blood Count 8.9x10^3/uL (4.0-11.0) Red Blood Count 2.35x10^6/uL (3.50-5.40) L Hemoglobin 7.4g/dL (12.0-15.5) L Hematocrit 23.1% (36.0-47.0) L Mean Corpuscular Volume 99fL (79-100) Mean Corpuscular Hemoglobin 32pg (25-35) Mean Corpuscular Hemoglobin Concent 32g/dL (31-37) Red Cell Distribution Width 20.0% (11.5-14.5) H Platelet Count 162x10^3/uL (140-400) Neutrophils (%) (Auto) 85% (31-73) H Lymphocytes (%) (Auto) 7% (24-48) L Monocytes (%) (Auto) 5% (0-9) Eosinophils (%) (Auto) 2% (0-3) Basophils (%) (Auto) 1% (0-3) Neutrophils # (Auto) 7.6x10^3uL (1.8-7.7) Lymphocytes # (Auto) 0.6x10^3/uL (1.0-4.8) L Monocytes # (Auto) 0.4x10^3/uL (0.0-1.1) Eosinophils # (Auto) 0.1x10^3/uL (0.0-0.7) Basophils # (Auto) 0.1x10^3/uL (0.0-0.2) Segmented Neutrophils % 81% (35-66) H Band Neutrophils % 5% (0-9) Lymphocytes % 3% (24-48) L Monocytes % 8% (0-10) Eosinophils % 3% (0-5) Toxic Granulation Mod Platelet Estimate Adequate (ADEQUATE) Polychromasia Slight Anisocytosis Mod Sodium Level 139mmol/L (136-145) Potassium Level 4.4mmol/L (3.5-5.1) Chloride Level 99mmol/L (98-107) Carbon Dioxide Level 30mmol/L (21-32) Anion Gap 10 (6-14) Blood Urea Nitrogen 31mg/dL (7-20) H Creatinine 3.3mg/dL (0.6-1.0) H Estimated GFR (Cockcroft-Gault) 16.9 BUN/Creatinine Ratio 9 (6-20) Glucose Level 96mg/dL (70-99) Calcium Level 9.2mg/dL (8.5-10.1) Total Bilirubin 0.5mg/dL (0.2-1.0) Aspartate Amino Transferase (AST) 18U/L (15-37) Alanine Aminotransferase (ALT) 24U/L (14-59) Alkaline Phosphatase 722U/L (46-116) H Total Protein 6.7g/dL (6.4-8.2) Albumin 3.5g/dL (3.4-5.0) Albumin/Globulin Ratio 1.1 (1.0-1.7) Lipase 161U/L (73-393) Serum Test, Qualitative Negative (NEG) Laboratory Tests 05/15/16 18:20 Laboratory Tests 05/15/16 18:20 EKG EKG [] Radiology/Procedures Radiology/Procedures [] Course & Med Decision Making Course & Med Decision Making Pertinent Labs and Imaging studies reviewed. (See chart for details) Patient is 26-year-old female with extensive past medical history who presents with abdominal pain and nausea/vomiting. Will check labs to evaluate. Pain meds , nausea meds ordered for relief of symptoms. Labs notable for chronic anemia. Discussed results with patient, who remains markedly symptomatic. I discussed possible admission with patient, she says she is agreeable to stay until Tuesday when she is scheduled to have surgery for her hip. Discussed with Dr. Torrez, will admit to his care for further evaluation treatment. Dragon Disclaimer Dragon Disclaimer This electronic medical record was generated, in whole or in part, using a voice recognition dictation system. Departure Departure Impression: Primary Impression: Abdominal pain Additional Impression: Nausea & vomiting Disposition: ADMITTED INPATIENT Admitting Physician: Fantasma Torrez Condition: STABLE Referrals: NO PCP (PCP) Problem Qualifiers KEVIN BRANTLEY MD May 15, 2016 18:51
[2016-05-15] MEDS ORDERED: ONDANSETRON PF 4 MG/2 ML VIAL. IV ONE ×2 (19:00→21:00)
[2016-05-15] MEDS ORDERED: MORPHINE SULFATE 4 MG/ML DISP.SYRIN. IV ONE ×2 (19:00→21:00)
[2016-05-15] MEDS ORDERED: hydrALAZINE 20 MG/ML VIAL. IVP ONE (19:00)
[2016-05-15 19:08] LABS: BASO # 0.1 x10^3/uL (0.0-0.2); BASO % 1 % (0-3); EOS % 2 % (0-3); HEMATOCRIT 23.1 % (36.0-47.0); HEMOGLOBIN 7.4 g/dL (12.0-15.5); LYMPH # 0.6 x10^3/uL (1.0-4.8); LYMPH % 7 % (24-48); MEAN CORPUSCULAR HEMOGLOBIN 32 pg (25-35); MEAN CORPUSCULAR HGB CONC 32 g/dL (31-37); MEAN CORPUSCULAR VOLUME 99 fL (79-100); MONO % 5 % (0-9); NEUT % 85 % (31-73); PLATELET COUNT 162 x10^3/uL (140-400); RED BLOOD COUNT 2.35 x10^6/uL (3.50-5.40); WHITE BLOOD COUNT 8.9 x10^3/uL (4.0-11.0)
[2016-05-15 19:21] LABS: CALCIUM 9.2 mg/dL (8.5-10.1); CREATININE 3.3 mg/dL (0.6-1.0); GFR 16.9; POTASSIUM 4.4 mmol/L (3.5-5.1)
[2016-05-15 19:27] LABS: ALBUMIN 3.5 g/dL (3.4-5.0); ALBUMIN/GLOBULIN RATIO 1.1 (1.0-1.7); TOTAL BILIRUBIN 0.5 mg/dL (0.2-1.0); TOTAL PROTEIN 6.7 g/dL (6.4-8.2)
[2016-05-15] MEDS ORDERED: LORAZEPAM 1 MG TABLET. PO ONE (19:45)
[2016-05-15 20:10] LABS: % EOS 3 % (0-5)
[2016-05-15 20:11] LABS: ANISOCYTOSIS MOD; PLT ESTIMATE ADEQUATE (ADEQUATE); POLYCHROMASIA SLIGHT; TOXIC GRANULATION MOD
[2016-05-15 20:34] LABS: NEG OBC SER NEG; POS OBC SER POS
[2016-05-15] MEDS ORDERED: ALPRAZOLAM 0.25 MG TABLET PO PRN (20:45)
[2016-05-15] MEDS ORDERED: ONDANSETRON ODT 4 MG TAB.RAPDIS PO PRN (20:45)
[2016-05-15] MEDS ORDERED: OXYCODONE/APAP 7.5/325 TABLET. PO PRN (20:45)
[2016-05-15] MEDS ORDERED: ALPRAZOLAM 1 MG TABLET PO PRN (20:47)
--- NOTE | 2016-05-15 22:00 | HP ---
ADMIT DATE: 05/15/2016 CHIEF COMPLAINT: Abdominal pain. HISTORY OF PRESENT ILLNESS: The patient is a pleasant 26-year-old female well known to our service. She actually just left earlier today against medical advice. We have had her in the hospital for the last couple of days. She is awaiting surgery Tuesday to put new hardware in her right hip. The right hip currently is actually missing; they took the old hardware out. She has no hip. Once again, she presents with abdominal pain. She wants to be readmitted to get her surgery and treat her symptoms. I have discussed the case with ER physician. We are going to admit the patient and reconsult her orthopedist, Dr. Feldman. PAST MEDICAL HISTORY: End-stage renal disease on dialysis, AV shunt, multiple dialysis catheters, left femur infection, , hypertension, renal failure, seizures. ALLERGIES: SULFA AND HALOPERIDOL. FAMILY HISTORY: Diabetes. SOCIAL HISTORY: She does not drink, smoke or take drugs. MEDICATIONS: Reviewed, please refer to the MRAD. REVIEW OF SYSTEMS: GENERAL: No history of weight change, weakness or fevers. SKIN: No bruising, hair changes or rashes. EYES: No blurred, double or loss of vision. NOSE AND THROAT: No history of nosebleeds, hoarseness or sore throat. HEART: No history of palpitations, chest pain or shortness of breath on exertion. LUNGS: Denies cough, hemoptysis, wheezing or shortness of breath. GASTROINTESTINAL: She complains of abdominal pain. GENITOURINARY: No history of frequency, urgency, hesitancy or nocturia. NEUROLOGIC: Denies history of numbness, tingling, tremor or weakness. PSYCHIATRIC: No history of panic, anxiety or depression. ENDOCRINE: No history of heat or cold intolerance, polyuria or polydipsia. EXTREMITIES: Denies muscle weakness, joint pain, pain on walking or stiffness. PHYSICAL EXAMINATION: VITAL SIGNS: Temperature afebrile at 99.9, pulse 105, respirations 22, blood pressure 186/118. GENERAL: She is alert, cooperative, anxious, almost tearful and sad that she left against medical advice earlier today. HEART: Distant S1, S2. LUNGS: Clear. ABDOMEN: Soft. Decreased bowel sounds, tender. EXTREMITIES: The left arm has an AV graft. The legs are very thin. The left hip is friable. ENDOCRINE: No thyromegaly. LYMPHATICS: No cervical nodes. HEMATOPOIETIC: No bruising. PSYCHIATRIC: She is depressed. LABORATORY DATA: White count 8.9, hemoglobin 7.4, platelets 162. Electrolytes: Sodium 139, potassium 4.4, chloride 99, bicarbonate 30, BUN 31, creatinine 3.3, glucose 96. ASSESSMENT AND PLAN: Abdominal pain and end-stage renal disease in a middle-aged female who is awaiting hip replacement (the old hip is currently out). There was a hardware that was infected. The patient is being readmitted, we will restart her IV antibiotics. Consult Infectious Disease, Orthopedics and Nephrology. Repeat her labs daily. PT, OT evaluate and treat. I have resumed her home meds. KINGSLEY EVERETT DO DR: GLORIA/phuc JOB#: [id number] / [id number]
[2016-05-15 23:00] VITALS: BP 186/129
[2016-05-15] MEDS ORDERED: MORPHINE SULFATE 4 MG/ML DISP.SYRIN. IV PRN (23:30)
[2016-05-15] MEDS: LORAZEPAM 2 MG/ML VIAL IV PRN (23:48)
[2016-05-15] MEDS: DIPHENHYDRAMINE 50 MG/ML VIAL IVP PRN (23:50)
[2016-05-15] MEDS: LABETALOL 20 MG/4 ML DISP.SYRIN. IVP PRN (23:53)
[2016-05-15] MEDS: MORPHINE SULFATE 2 MG/ML DISP.SYRIN. IV PRN (23:59)
[2016-05-16] VITALS (7 sets, daily range): BP systolic 133–174; BP diastolic 92–127
[2016-05-16] MEDS: MORPHINE SULFATE 2 MG/ML DISP.SYRIN. IV PRN ×9 (02:07→22:48)
[2016-05-16] MEDS: LORAZEPAM 2 MG/ML VIAL IV PRN ×3 (06:21→20:22)
[2016-05-16] MEDS: DIPHENHYDRAMINE 50 MG/ML VIAL IVP PRN ×3 (06:22→20:23)
[2016-05-16] MEDS: HYDRALAZINE 50 MG TABLET PO SCH ×3 (08:37→20:36)
[2016-05-16] MEDS: METOPROLOL SUCC 24HR ER 100 MG TAB.ER.24H. PO SCH (08:38)
[2016-05-16] MEDS: AMLODIPINE BESYLATE 10 MG TABLET PO SCH (08:39)
[2016-05-16] MEDS: LABETALOL 20 MG/4 ML DISP.SYRIN. IVP PRN ×2 (11:14→22:49)
--- NOTE | 2016-05-16 11:53 | PDOC ---
PROGRESS NOTES Chief Complaint Chief Complaint Abd pain ASSESSMENT AND PLAN: 1. Abd pain: chronic. unclear etiology (?narcotics, gastroparesis). bowel regimen, antiemetics 2. Narcotic dependence: left AMA becuse IV narcotics (not PO) were cut off. difficult to manage with upcoming surgery. minimize IV for now. likes "triple cocktail" of morphine, benadryl and ativan IV... 3. Hx osteomyelitis, L hip hardware removed, with plans of replacing it on (?) by Dr Feldman. consulted. 4. elevated Alk Phos: isolated. most likely bone source. with above setting , worrisome. 5. ESRD: HD M/W/F 6. Anemia: severe. / ESRD. may need pre-op transfusion, to be done with HD in AM Vitals Vitals Vital Signs Date Time Temp Pulse Resp B/P Pulse Ox O2 Delivery O2 Flow Rate FiO2 05/16/16 11:14 142 174/127 05/16/16 10:59 98.8 19 97 Room Air 98.8 Physical Exam General: Alert, Oriented X3, Cooperative Heart: Regular rate Lungs: Clear, Other Abdomen: Normal bowel sounds Extremities: No clubbing, No edema Skin: No rashes Labs LABS Laboratory Tests Test 05/15/16 18:20 White Blood Count 8.9x10^3/uL (4.0-11.0) Red Blood Count 2.35x10^6/uL (3.50-5.40) Hemoglobin 7.4g/dL (12.0-15.5) Hematocrit 23.1% (36.0-47.0) Mean Corpuscular Volume 99fL (79-100) Mean Corpuscular Hemoglobin 32pg (25-35) Mean Corpuscular Hemoglobin Concent 32g/dL (31-37) Red Cell Distribution Width 20.0% (11.5-14.5) Platelet Count 162x10^3/uL (140-400) Neutrophils (%) (Auto) 85% (31-73) Lymphocytes (%) (Auto) 7% (24-48) Monocytes (%) (Auto) 5% (0-9) Eosinophils (%) (Auto) 2% (0-3) Basophils (%) (Auto) 1% (0-3) Neutrophils # (Auto) 7.6x10^3uL (1.8-7.7) Lymphocytes # (Auto) 0.6x10^3/uL (1.0-4.8) Monocytes # (Auto) 0.4x10^3/uL (0.0-1.1) Eosinophils # (Auto) 0.1x10^3/uL (0.0-0.7) Basophils # (Auto) 0.1x10^3/uL (0.0-0.2) Segmented Neutrophils % 81% (35-66) Band Neutrophils % 5% (0-9) Lymphocytes % 3% (24-48) Monocytes % 8% (0-10) Eosinophils % 3% (0-5) Toxic Granulation Mod Platelet Estimate Adequate (ADEQUATE) Polychromasia Slight Anisocytosis Mod Sodium Level 139mmol/L (136-145) Potassium Level 4.4mmol/L (3.5-5.1) Chloride Level 99mmol/L (98-107) Carbon Dioxide Level 30mmol/L (21-32) Anion Gap 10 (6-14) Blood Urea Nitrogen 31mg/dL (7-20) Creatinine 3.3mg/dL (0.6-1.0) Estimated GFR (Cockcroft-Gault) 16.9 BUN/Creatinine Ratio 9 (6-20) Glucose Level 96mg/dL (70-99) Calcium Level 9.2mg/dL (8.5-10.1) Total Bilirubin 0.5mg/dL (0.2-1.0) Aspartate Amino Transf (AST/SGOT) 18U/L (15-37) Alanine Aminotransferase (ALT/SGPT) 24U/L (14-59) Alkaline Phosphatase 722U/L (46-116) Total Protein 6.7g/dL (6.4-8.2) Albumin 3.5g/dL (3.4-5.0) Albumin/Globulin Ratio 1.1 (1.0-1.7) Lipase 161U/L (73-393) Serum Test, Qualitative Negative (NEG) Review of Systems Review of Systems more cooperative today. no new issues ENOC BURROWS MD May 16, 2016 11:53
--- NOTE | 2016-05-16 17:12 | PDOC2 ---
CONSULT Date of Consult Date of Consult DATE: 05/16/16 TIME: 17:11 Past Medical History Cardiovascular: HTN Heme/Onc: Anemia NOS Psych: Anxiety Musculoskeletal: Weakness Rheumatologic: No pertinent hx Infectious disease: No pertinent hx Renal/: Chronic renal failure, UTI, Other Endocrine: Hyperparathyroidism Past Surgical History Past Surgical History: , Other Family History Family History: No Significant, Hypertension Social History ALCOHOL: none Drugs: None Lives: with Family Current Problem List Problem List Problems Medical Problems: (1) Abdominal pain Status: Acute (2) Intractable abdominal pain Status: Acute (3) Nausea & vomiting Status: Acute Current Medications Current Medications Current Medications Ondansetron HCl (Zofran) 4 mg 1X ONCE IV Last administered on 05/15/16 19:17 ; Start 05/15/16 at 19:00; Stop 05/15/16 at 19:01; Status DC Morphine Sulfate 4 mg 1X ONCE IV Last administered on 05/15/16 19:19; Start 05/15/16 at 19:00; Stop 05/15/16 at 19:01; Status DC Hydralazine HCl (Apresoline) 10 mg 1X ONCE IVP Last administered on 05/15/16 19:21; Start 05/15/16 at 19:00; Stop 05/15/16 at 19:01; Status DC Lorazepam (Ativan) 1 mg 1X ONCE PO Last administered on 05/15/16 20:04; Start 05/15/16 at 19:45; Stop 05/15/16 at 19:46; Status DC Alprazolam (Xanax) 2 mg PRN TID PRN PO ANXIETY / AGITATION; Start 05/15/16 at 20:45; Stop 05/15/16 at 20:47; Status DC Amlodipine Besylate (Norvasc) 10 mg DAILY PO Last administered on 05/16/16 08: 39; Start 05/16/16 at 09:00 Hydralazine HCl (Apresoline) 50 mg TID PO Last administered on 05/16/16 14:06 ; Start 05/16/16 at 09:00 Ondansetron HCl (Zofran Odt) 4 mg PRN Q8HRS PRN PO NAUSEA; Start 05/15/16 at 20 :45 Oxycodone/ Acetaminophen (Percocet 7.5/ 325) 1 tab PRN Q8HRS PRN PO PAIN; Start 05/15/16 at 20:45 Metoprolol Succinate (Toprol Xl) 200 mg DAILY PO Last administered on 08:38; Start 05/16/16 at 09:00 Alprazolam (Xanax) 2 mg PRN TID PRN PO ANXIETY / AGITATION; Start 05/15/16 at 20:47 Morphine Sulfate 4 mg 1X ONCE IV Last administered on 05/15/16 21:13; Start 05/15/16 at 21:00; Stop 05/15/16 at 21:01; Status DC Ondansetron HCl (Zofran) 4 mg 1X ONCE IV Last administered on 05/15/16 21:08 ; Start 05/15/16 at 21:00; Stop 05/15/16 at 21:01; Status DC Labetalol HCl (Normodyne) 20 mg PRN Q6HRS PRN IVP HYPERTENSION, SEE COMMENTS Last administered on 05/16/16 11:14; Start 05/15/16 at 23:30 Lorazepam (Ativan) 1 mg PRN Q6HRS PRN IV ANXIETY / AGITATION Last administered on 05/16/16 13:20; Start 05/15/16 at 23:30 Morphine Sulfate 2 mg PRN Q2HR PRN IV PAIN Last administered on 05/16/16 10:52 ; Start 05/15/16 at 23:30; Stop 05/16/16 at 11:42; Status DC Morphine Sulfate 4 mg PRN Q2HR PRN IV PAIN; Start 05/15/16 at 23:30; Stop 05/16 at 11:42; Status DC Diphenhydramine HCl (Benadryl) 50 mg PRN Q6HRS PRN IVP ITCHING Last administered on 05/16/16 14:07; Start 05/15/16 at 23:30 Morphine Sulfate 1 mg PRN Q2HR PRN IV PAIN Last administered on 05/16/16 17:04 ; Start 05/16/16 at 11:45 Active Scripts Active Zofran Odt (Ondansetron) 4 Mg Tab.rapdis 1 Tab SL Q8HRS PRN Reported Percocet 7.5-325 Mg Tablet (Oxycodone/Acetaminophen) 1 Each Tablet 1 Tab PO PRN Q8HRS PRN Xanax (Alprazolam) 0.25 Mg Tablet 2 Mg PO TID PRN Metoprolol Succinate ( Xl ) (Metoprolol Succinate) 200 Mg Tab.er.24h 1 Tab PO DAILY Hydralazine Hcl 50 Mg Tablet 1 Tab PO TID Amlodipine Besylate 10 Mg Tablet 1 Tab PO DAILY Allergies Allergies: Coded Allergies: Sulfa (Sulfonamide Antibiotics) (Verified Allergy, Intermediate, 07/07/14) haloperidol (Verified Allergy, Intermediate, Anxiety, 04/18/16) Vitals VITALS Vital Signs Date Time Temp Pulse Resp B/P Pulse Ox O2 Delivery O2 Flow Rate FiO2 05/16/16 14:59 98.4 104 19 133/92 96 Room Air 98.4 Labs Labs Laboratory Tests Test 05/15/16 18:20 White Blood Count 8.9x10^3/uL (4.0-11.0) Red Blood Count 2.35x10^6/uL (3.50-5.40) Hemoglobin 7.4g/dL (12.0-15.5) Hematocrit 23.1% (36.0-47.0) Mean Corpuscular Volume 99fL (79-100) Mean Corpuscular Hemoglobin 32pg (25-35) Mean Corpuscular Hemoglobin Concent 32g/dL (31-37) Red Cell Distribution Width 20.0% (11.5-14.5) Platelet Count 162x10^3/uL (140-400) Neutrophils (%) (Auto) 85% (31-73) Lymphocytes (%) (Auto) 7% (24-48) Monocytes (%) (Auto) 5% (0-9) Eosinophils (%) (Auto) 2% (0-3) Basophils (%) (Auto) 1% (0-3) Neutrophils # (Auto) 7.6x10^3uL (1.8-7.7) Lymphocytes # (Auto) 0.6x10^3/uL (1.0-4.8) Monocytes # (Auto) 0.4x10^3/uL (0.0-1.1) Eosinophils # (Auto) 0.1x10^3/uL (0.0-0.7) Basophils # (Auto) 0.1x10^3/uL (0.0-0.2) Segmented Neutrophils % 81% (35-66) Band Neutrophils % 5% (0-9) Lymphocytes % 3% (24-48) Monocytes % 8% (0-10) Eosinophils % 3% (0-5) Toxic Granulation Mod Platelet Estimate Adequate (ADEQUATE) Polychromasia Slight Anisocytosis Mod Sodium Level 139mmol/L (136-145) Potassium Level 4.4mmol/L (3.5-5.1) Chloride Level 99mmol/L (98-107) Carbon Dioxide Level 30mmol/L (21-32) Anion Gap 10 (6-14) Blood Urea Nitrogen 31mg/dL (7-20) Creatinine 3.3mg/dL (0.6-1.0) Estimated GFR (Cockcroft-Gault) 16.9 BUN/Creatinine Ratio 9 (6-20) Glucose Level 96mg/dL (70-99) Calcium Level 9.2mg/dL (8.5-10.1) Total Bilirubin 0.5mg/dL (0.2-1.0) Aspartate Amino Transf (AST/SGOT) 18U/L (15-37) Alanine Aminotransferase (ALT/SGPT) 24U/L (14-59) Alkaline Phosphatase 722U/L (46-116) Total Protein 6.7g/dL (6.4-8.2) Albumin 3.5g/dL (3.4-5.0) Albumin/Globulin Ratio 1.1 (1.0-1.7) Lipase 161U/L (73-393) Serum Test, Qualitative Negative (NEG) Laboratory Tests Test 05/15/16 18:20 White Blood Count 8.9x10^3/uL (4.0-11.0) Red Blood Count 2.35x10^6/uL (3.50-5.40) Hemoglobin 7.4g/dL (12.0-15.5) Hematocrit 23.1% (36.0-47.0) Mean Corpuscular Volume 99fL (79-100) Mean Corpuscular Hemoglobin 32pg (25-35) Mean Corpuscular Hemoglobin Concent 32g/dL (31-37) Red Cell Distribution Width 20.0% (11.5-14.5) Platelet Count 162x10^3/uL (140-400) Neutrophils (%) (Auto) 85% (31-73) Lymphocytes (%) (Auto) 7% (24-48) Monocytes (%) (Auto) 5% (0-9) Eosinophils (%) (Auto) 2% (0-3) Basophils (%) (Auto) 1% (0-3) Neutrophils # (Auto) 7.6x10^3uL (1.8-7.7) Lymphocytes # (Auto) 0.6x10^3/uL (1.0-4.8) Monocytes # (Auto) 0.4x10^3/uL (0.0-1.1) Eosinophils # (Auto) 0.1x10^3/uL (0.0-0.7) Basophils # (Auto) 0.1x10^3/uL (0.0-0.2) Segmented Neutrophils % 81% (35-66) Band Neutrophils % 5% (0-9) Lymphocytes % 3% (24-48) Monocytes % 8% (0-10) Eosinophils % 3% (0-5) Toxic Granulation Mod Platelet Estimate Adequate (ADEQUATE) Polychromasia Slight Anisocytosis Mod Sodium Level 139mmol/L (136-145) Potassium Level 4.4mmol/L (3.5-5.1) Chloride Level 99mmol/L (98-107) Carbon Dioxide Level 30mmol/L (21-32) Anion Gap 10 (6-14) Blood Urea Nitrogen 31mg/dL (7-20) Creatinine 3.3mg/dL (0.6-1.0) Estimated GFR (Cockcroft-Gault) 16.9 BUN/Creatinine Ratio 9 (6-20) Glucose Level 96mg/dL (70-99) Calcium Level 9.2mg/dL (8.5-10.1) Total Bilirubin 0.5mg/dL (0.2-1.0) Aspartate Amino Transf (AST/SGOT) 18U/L (15-37) Alanine Aminotransferase (ALT/SGPT) 24U/L (14-59) Alkaline Phosphatase 722U/L (46-116) Total Protein 6.7g/dL (6.4-8.2) Albumin 3.5g/dL (3.4-5.0) Albumin/Globulin Ratio 1.1 (1.0-1.7) Lipase 161U/L (73-393) Serum Test, Qualitative Negative (NEG) Assessment/Plan Assessment/Plan RENAL CONSULT / GUZMAN Dictated. HD in am Hip surgery Tuesday Thank you ARIAS HINDS MD May 16, 2016 17:12
[2016-05-17] MEDS: MORPHINE SULFATE 2 MG/ML DISP.SYRIN. IV PRN ×6 (01:06→18:38)
[2016-05-17 03:00] VITALS: BP 162/116
[2016-05-17] MEDS: LORAZEPAM 2 MG/ML VIAL IV PRN ×2 (03:16→11:34)
[2016-05-17] MEDS: DIPHENHYDRAMINE 50 MG/ML VIAL IVP PRN ×3 (03:17→20:41)
[2016-05-17 07:00] VITALS: BP 167/114
[2016-05-17] MEDS: POLYETHYLENE GLYCOL 3350 17 GM PACKET. PO SCH ×2 (08:15→19:24)
[2016-05-17] MEDS: HYDRALAZINE 50 MG TABLET PO SCH ×3 (08:15→20:42)
[2016-05-17] MEDS: AMLODIPINE BESYLATE 10 MG TABLET PO SCH (08:15)
[2016-05-17] MEDS: METOPROLOL SUCC 24HR ER 100 MG TAB.ER.24H. PO SCH (08:15)
[2016-05-17] MEDS: LABETALOL 20 MG/4 ML DISP.SYRIN. IVP PRN (08:16)
[2016-05-17 11:00] VITALS: BP 163/111
[2016-05-17 11:13] LABS: BASO # 0.1 x10^3/uL (0.0-0.2); BASO % 1 % (0-3); EOS % 5 % (0-3); HEMATOCRIT 25.7 % (36.0-47.0); HEMOGLOBIN 8.4 g/dL (12.0-15.5); LYMPH % 12 % (24-48); MEAN CORPUSCULAR HEMOGLOBIN 32 pg (25-35); MEAN CORPUSCULAR HGB CONC 33 g/dL (31-37); MEAN CORPUSCULAR VOLUME 99 fL (79-100); MONO % 5 % (0-9); NEUT % 77 % (31-73); PLATELET COUNT 189 x10^3/uL (140-400); RED BLOOD COUNT 2.61 x10^6/uL (3.50-5.40); WHITE BLOOD COUNT 8.1 x10^3/uL (4.0-11.0)
--- NOTE | 2016-05-17 11:14 | PDOC ---
Renal-Progress Notes Subjective Notes Notes NONE History of Present Illness Hx of present illness NO CHANGE Vitals Vitals Vital Signs Date Time Temp Pulse Resp B/P Pulse Ox O2 Delivery O2 Flow Rate FiO2 05/17/16 11:00 99.2 97 18 163/111 96 Room Air 99.2 Weight Weight [ ] I.O. Intake and Output Intake and Output 05/17/16 06:59 Intake Total 610 ml Balance 610 ml Intake Oral 610 ml Review of Systems Constitutional: yes: alert, oriented, weakness Ears/Nose/Throat: Yes: no symptom reported Eyes: Yes: no symptom reported Cardiovascular: Yes no symptom reported Gastrointestional: Yes: no symptom reported Skin: Yes no symptom reported Physical Exam General Appearance: no apparent distress Skin: warm Respiratory: bilateral CTA Heart: S1S2 Abdomen: soft, bowel sounds present Genitourinary: bladder flat Extremities: pulses present Neurology: alert Musculoskeletal: Weakness Assessment Assessment IMP ANEMIA ESRD PLAN HD TODAY UF TO DW HIP PLACEMENT TOMORROW WILL FOLLOW RUSLAN TEMPLE MD May 17, 2016 11:14
[2016-05-17] MEDS ORDERED: LIDOCAINE 1% PF 2 ML VIAL. ONE (11:20)
[2016-05-17 11:33] LABS: CALCIUM 9.7 mg/dL (8.5-10.1); CREATININE 6.2 mg/dL (0.6-1.0); GFR 8.2
[2016-05-17 11:38] LABS: POTASSIUM 6.2 mmol/L (3.5-5.1)
[2016-05-17] MEDS ORDERED: IV NORMAL SALINE 1000ML BAG 1,000 ML IV PRN (12:42)
[2016-05-17] MEDS ORDERED: DIPHENHYDRAMINE 50 MG/ML VIAL IV PRN ×2 (12:45)
[2016-05-17] MEDS ORDERED: DIALYSIS PATIENT. MC PRN ×2 (12:45)
--- NOTE | 2016-05-17 14:23 | PDOC ---
PROGRESS NOTES Chief Complaint Chief Complaint Abd pain ASSESSMENT AND PLAN: 1. Abd pain: chronic. unclear etiology (?narcotics, gastroparesis). bowel regimen, antiemetics 2. Narcotic dependence: left AMA becuse IV narcotics (not PO) were cut off. difficult to manage with upcoming surgery. minimize IV for now. likes "triple cocktail" of morphine, benadryl and ativan IV... 3. Hx osteomyelitis, L hip hardware removed, with plans of replacing it on (?) by Dr Feldman. consulted. 4. elevated Alk Phos: isolated. most likely bone source. with above setting , worrisome. 5. ESRD: HD M/W/F 6. Anemia: severe. 2/ ESRD. may need pre-op transfusion, to be done with HD in AM History of Present Illness History of Present Illness KNown to me Left AMA the last time bec wanted IV pain meds and could not wait NOw having HD (ESRD MWF) K high PLanned for ortho sx jigar PLAN no new orders Pt is due HD today - dw RN Sx jigar NPO post [place] LAbs jigar Vitals Vitals Vital Signs Date Time Temp Pulse Resp B/P Pulse Ox O2 Delivery O2 Flow Rate FiO2 05/17/16 13:41 16 Room Air 05/17/16 11:00 99.2 97 163/111 96 99.2 Physical Exam General: Alert, Oriented X3, Cooperative Heart: Regular rate Lungs: Clear, Other Abdomen: Normal bowel sounds Extremities: No clubbing, No edema Skin: No rashes Labs LABS Laboratory Tests Test 05/17/16 11:00 White Blood Count 8.1x10^3/uL (4.0-11.0) Red Blood Count 2.61x10^6/uL (3.50-5.40) Hemoglobin 8.4g/dL (12.0-15.5) Hematocrit 25.7% (36.0-47.0) Mean Corpuscular Volume 99fL (79-100) Mean Corpuscular Hemoglobin 32pg (25-35) Mean Corpuscular Hemoglobin Concent 33g/dL (31-37) Red Cell Distribution Width 20.0% (11.5-14.5) Platelet Count 189x10^3/uL (140-400) Neutrophils (%) (Auto) 77% (31-73) Lymphocytes (%) (Auto) 12% (24-48) Monocytes (%) (Auto) 5% (0-9) Eosinophils (%) (Auto) 5% (0-3) Basophils (%) (Auto) 1% (0-3) Neutrophils # (Auto) 6.2x10^3uL (1.8-7.7) Lymphocytes # (Auto) 1.0x10^3/uL (1.0-4.8) Monocytes # (Auto) 0.4x10^3/uL (0.0-1.1) Eosinophils # (Auto) 0.4x10^3/uL (0.0-0.7) Basophils # (Auto) 0.1x10^3/uL (0.0-0.2) Sodium Level 139mmol/L (136-145) Potassium Level 6.2mmol/L (3.5-5.1) Chloride Level 98mmol/L (98-107) Carbon Dioxide Level 26mmol/L (21-32) Anion Gap 15 (6-14) Blood Urea Nitrogen 52mg/dL (7-20) Creatinine 6.2mg/dL (0.6-1.0) Estimated GFR (Cockcroft-Gault) 8.2 Glucose Level 120mg/dL (70-99) Calcium Level 9.7mg/dL (8.5-10.1) Review of Systems Review of Systems chronic pain issues, all else is neg Assessment and Plan Assessmemt and Plan Problems Medical Problems: (1) Abdominal pain Status: Acute (2) Intractable abdominal pain Status: Acute (3) Nausea & vomiting Status: Acute Problems: Comment Review of Relevant I have reviewed the following items lynnette (where applicable) has been applied. Labs Laboratory Tests Test 05/15/16 18:20 05/17/16 11:00 White Blood Count 8.9x10^3/uL (4.0-11.0) 8.1x10^3/uL (4.0-11.0) Red Blood Count 2.35x10^6/uL (3.50-5.40) 2.61x10^6/uL (3.50-5.40) Hemoglobin 7.4g/dL (12.0-15.5) 8.4g/dL (12.0-15.5) Hematocrit 23.1% (36.0-47.0) 25.7% (36.0-47.0) Mean Corpuscular Volume 99fL (79-100) 99fL (79-100) Mean Corpuscular Hemoglobin 32pg (25-35) 32pg (25-35) Mean Corpuscular Hemoglobin Concent 32g/dL (31-37) 33g/dL (31-37) Red Cell Distribution Width 20.0% (11.5-14.5) 20.0% (11.5-14.5) Platelet Count 162x10^3/uL (140-400) 189x10^3/uL (140-400) Neutrophils (%) (Auto) 85% (31-73) 77% (31-73) Lymphocytes (%) (Auto) 7% (24-48) 12% (24-48) Monocytes (%) (Auto) 5% (0-9) 5% (0-9) Eosinophils (%) (Auto) 2% (0-3) 5% (0-3) Basophils (%) (Auto) 1% (0-3) 1% (0-3) Neutrophils # (Auto) 7.6x10^3uL (1.8-7.7) 6.2x10^3uL (1.8-7.7) Lymphocytes # (Auto) 0.6x10^3/uL (1.0-4.8) 1.0x10^3/uL (1.0-4.8) Monocytes # (Auto) 0.4x10^3/uL (0.0-1.1) 0.4x10^3/uL (0.0-1.1) Eosinophils # (Auto) 0.1x10^3/uL (0.0-0.7) 0.4x10^3/uL (0.0-0.7) Basophils # (Auto) 0.1x10^3/uL (0.0-0.2) 0.1x10^3/uL (0.0-0.2) Segmented Neutrophils % 81% (35-66) Band Neutrophils % 5% (0-9) Lymphocytes % 3% (24-48) Monocytes % 8% (0-10) Eosinophils % 3% (0-5) Toxic Granulation Mod Platelet Estimate Adequate (ADEQUATE) Polychromasia Slight Anisocytosis Mod Sodium Level 139mmol/L (136-145) 139mmol/L (136-145) Potassium Level 4.4mmol/L (3.5-5.1) 6.2mmol/L (3.5-5.1) Chloride Level 99mmol/L (98-107) 98mmol/L (98-107) Carbon Dioxide Level 30mmol/L (21-32) 26mmol/L (21-32) Anion Gap 10 (6-14) 15 (6-14) Blood Urea Nitrogen 31mg/dL (7-20) 52mg/dL (7-20) Creatinine 3.3mg/dL (0.6-1.0) 6.2mg/dL (0.6-1.0) Estimated GFR (Cockcroft-Gault) 16.9 8.2 BUN/Creatinine Ratio 9 (6-20) Glucose Level 96mg/dL (70-99) 120mg/dL (70-99) Calcium Level 9.2mg/dL (8.5-10.1) 9.7mg/dL (8.5-10.1) Total Bilirubin 0.5mg/dL (0.2-1.0) Aspartate Amino Transf (AST/SGOT) 18U/L (15-37) Alanine Aminotransferase (ALT/SGPT) 24U/L (14-59) Alkaline Phosphatase 722U/L (46-116) Total Protein 6.7g/dL (6.4-8.2) Albumin 3.5g/dL (3.4-5.0) Albumin/Globulin Ratio 1.1 (1.0-1.7) Lipase 161U/L (73-393) Serum Test, Qualitative Negative (NEG) Laboratory Tests Test 05/17/16 11:00 White Blood Count 8.1x10^3/uL (4.0-11.0) Red Blood Count 2.61x10^6/uL (3.50-5.40) Hemoglobin 8.4g/dL (12.0-15.5) Hematocrit 25.7% (36.0-47.0) Mean Corpuscular Volume 99fL (79-100) Mean Corpuscular Hemoglobin 32pg (25-35) Mean Corpuscular Hemoglobin Concent 33g/dL (31-37) Red Cell Distribution Width 20.0% (11.5-14.5) Platelet Count 189x10^3/uL (140-400) Neutrophils (%) (Auto) 77% (31-73) Lymphocytes (%) (Auto) 12% (24-48) Monocytes (%) (Auto) 5% (0-9) Eosinophils (%) (Auto) 5% (0-3) Basophils (%) (Auto) 1% (0-3) Neutrophils # (Auto) 6.2x10^3uL (1.8-7.7) Lymphocytes # (Auto) 1.0x10^3/uL (1.0-4.8) Monocytes # (Auto) 0.4x10^3/uL (0.0-1.1) Eosinophils # (Auto) 0.4x10^3/uL (0.0-0.7) Basophils # (Auto) 0.1x10^3/uL (0.0-0.2) Sodium Level 139mmol/L (136-145) Potassium Level 6.2mmol/L (3.5-5.1) Chloride Level 98mmol/L (98-107) Carbon Dioxide Level 26mmol/L (21-32) Anion Gap 15 (6-14) Blood Urea Nitrogen 52mg/dL (7-20) Creatinine 6.2mg/dL (0.6-1.0) Estimated GFR (Cockcroft-Gault) 8.2 Glucose Level 120mg/dL (70-99) Calcium Level 9.7mg/dL (8.5-10.1) Medications Current Medications Ondansetron HCl (Zofran) 4 mg 1X ONCE IV Last administered on 05/15/16 19:17 ; Start 05/15/16 at 19:00; Stop 05/15/16 at 19:01; Status DC Morphine Sulfate 4 mg 1X ONCE IV Last administered on 05/15/16 19:19; Start 05/15/16 at 19:00; Stop 05/15/16 at 19:01; Status DC Hydralazine HCl (Apresoline) 10 mg 1X ONCE IVP Last administered on 05/15/16 19:21; Start 05/15/16 at 19:00; Stop 05/15/16 at 19:01; Status DC Lorazepam (Ativan) 1 mg 1X ONCE PO Last administered on 05/15/16 20:04; Start 05/15/16 at 19:45; Stop 05/15/16 at 19:46; Status DC Alprazolam (Xanax) 2 mg PRN TID PRN PO ANXIETY / AGITATION; Start 05/15/16 at 20:45; Stop 05/15/16 at 20:47; Status DC Amlodipine Besylate (Norvasc) 10 mg DAILY PO Last administered on 05/17/16 08: 15; Start 05/16/16 at 09:00 Hydralazine HCl (Apresoline) 50 mg TID PO Last administered on 05/17/16 08:15 ; Start 05/16/16 at 09:00 Ondansetron HCl (Zofran Odt) 4 mg PRN Q8HRS PRN PO NAUSEA; Start 05/15/16 at 20 :45 Oxycodone/ Acetaminophen (Percocet 7.5/ 325) 1 tab PRN Q8HRS PRN PO PAIN; Start 05/15/16 at 20:45 Metoprolol Succinate (Toprol Xl) 200 mg DAILY PO Last administered on 08:15; Start 05/16/16 at 09:00 Alprazolam (Xanax) 2 mg PRN TID PRN PO ANXIETY / AGITATION; Start 05/15/16 at 20:47 Morphine Sulfate 4 mg 1X ONCE IV Last administered on 05/15/16 21:13; Start 05/15/16 at 21:00; Stop 05/15/16 at 21:01; Status DC Ondansetron HCl (Zofran) 4 mg 1X ONCE IV Last administered on 05/15/16 21:08 ; Start 05/15/16 at 21:00; Stop 05/15/16 at 21:01; Status DC Labetalol HCl (Normodyne) 20 mg PRN Q6HRS PRN IVP HYPERTENSION, SEE COMMENTS Last administered on 05/17/16 08:16; Start 05/15/16 at 23:30 Lorazepam (Ativan) 1 mg PRN Q6HRS PRN IV ANXIETY / AGITATION Last administered on 05/16/16 20:22; Start 05/15/16 at 23:30; Stop 05/16/16 at 22:44; Status DC Morphine Sulfate 2 mg PRN Q2HR PRN IV PAIN Last administered on 05/16/16 10:52 ; Start 05/15/16 at 23:30; Stop 05/16/16 at 11:42; Status DC Morphine Sulfate 4 mg PRN Q2HR PRN IV PAIN; Start 05/15/16 at 23:30; Stop 05/16 at 11:42; Status DC Diphenhydramine HCl (Benadryl) 50 mg PRN Q6HRS PRN IVP ITCHING Last administered on 05/16/16 20:23; Start 05/15/16 at 23:30; Stop 05/16/16 at 22:44 ; Status DC Morphine Sulfate 1 mg PRN Q2HR PRN IV PAIN Last administered on 05/17/16 13:41 ; Start 05/16/16 at 11:45 Diphenhydramine HCl (Benadryl) 25 mg PRN Q8HRS PRN IVP ITCHING Last administered on 05/17/16 11:34; Start 05/16/16 at 23:30 Lorazepam (Ativan) 0.5 mg PRN Q8HRS PRN IV ANXIETY / AGITATION Last administered on 05/17/16 11:34; Start 05/16/16 at 23:30 Metoclopramide HCl (Reglan) 5 mg PRN Q8HRS PRN IV NAUSEA/VOMITING; Start at 22:45 Polyethylene Glycol (miraLAX PACKET) 17 gm BID PO ; Start 05/17/16 at 09:00 Lidocaine HCl 2 ml 2 ml STNanosolar-MED ONCE .ROUTE ; Start 05/17/16 at 11:20; Stop at 11:21; Status DC Sodium Chloride (Iv Sodium Chloride 0.9% 1000ml Bag) 1,000 ml @ 1,000 mls/hr Q1H PRN IV hypotension; Start 05/17/16 at 12:42; Stop 05/17/16 at 18:41 Diphenhydramine HCl (Benadryl) 25 mg 1X PRN PRN IV ITCHING; Start 05/17/16 at 12:45; Stop 05/18/16 at 12:44 Diphenhydramine HCl (Benadryl) 25 mg 1X PRN PRN IV ITCHING; Start 05/17/16 at 12:45; Stop 05/18/16 at 12:44 Info (PHARMACY MONITORING -- do not chart) 1 each PRN DAILY PRN MC SEE COMMENTS ; Start 05/17/16 at 12:45; Status UNV Info 1 each 1 each PRN DAILY PRN MC SEE COMMENTS; Start 05/17/16 at 12:45; Status UNV Morphine Sulfate/ Ketorolac Tromethamine/ Ropivacaine/ Epinephrine HCl/ Sodium Chloride (Morphine 5mg Syringe/Toradol/ Naropin 0.5%/ Adrenalin/Iv Sodium Chloride 0.9% 100ml) 100.5 ml @ 100.5 mls/ hr 1X PERIOP ONCE INT ART ; Start 05/18/16 at 06:00; Stop 05/18/16 at 06:59 Active Scripts Active Zofran Odt (Ondansetron) 4 Mg Tab.rapdis 1 Tab SL Q8HRS PRN Reported Percocet 7.5-325 Mg Tablet (Oxycodone/Acetaminophen) 1 Each Tablet 1 Tab PO PRN Q8HRS PRN Xanax (Alprazolam) 0.25 Mg Tablet 2 Mg PO TID PRN Metoprolol Succinate ( Xl ) (Metoprolol Succinate) 200 Mg Tab.er.24h 1 Tab PO DAILY Hydralazine Hcl 50 Mg Tablet 1 Tab PO TID Amlodipine Besylate 10 Mg Tablet 1 Tab PO DAILY Vitals/I & O Vital Sign - Last 24 Hours 05/16/16 05/16/16 05/16/16 05/16/16 14:59 19:00 20:00 20:22 Temp 98.4 99.9 98.4 99.9 Pulse 104 104 Resp 19 14 B/P 133/92 166/119 Pulse Ox 96 100 O2 Delivery Room Air Room Air Room Air Room Air 05/16/16 05/16/16 05/16/16 05/16/16 20:36 22:48 22:49 23:00 Temp 98.6 98.6 Pulse 104 101 101 Resp 15 B/P 166/119 165/114 165/114 Pulse Ox 97 O2 Delivery Room Air Room Air 05/17/16 05/17/16 05/17/16 05/17/16 01:06 03:00 05:31 07:00 Temp 98.4 97.9 98.4 97.9 Pulse 98 81 Resp 15 18 B/P 162/116 167/114 Pulse Ox 95 98 O2 Delivery Room Air Room Air Room Air Room Air 05/17/16 05/17/16 05/17/16 05/17/16 08:00 08:15 08:15 08:15 Pulse 81 81 81 B/P 167/114 167/114 167/114 O2 Delivery Room Air 05/17/16 05/17/16 05/17/16 05/17/16 08:16 08:23 09:26 11:00 Temp 99.2 99.2 Pulse 81 97 Resp 16 16 18 B/P 167/114 163/111 Pulse Ox 98 96 O2 Delivery Room Air Room Air Room Air 05/17/16 13:41 Resp 16 O2 Delivery Room Air Intake and Output 05/16/16 05/16/16 05/17/16 15:00 23:00 07:00 Intake Total 360 ml 250 ml Balance 360 ml 250 ml ROGERIO BERGMAN MD May 17, 2016 14:23
[2016-05-17 15:16] LABS: INR 1.2 (0.8-1.1); PROTHROMBIN TIME PATIENT 14.9 SEC (11.7-14.0)
[2016-05-17] MEDS ORDERED: WARFARIN 5 MG TABLET. PO ONE (17:00)
[2016-05-17 18:47] LABS: POTASSIUM 3.9 mmol/L (3.5-5.1)
[2016-05-17 19:00] VITALS: BP 150/87
[2016-05-17 23:00] VITALS: BP 149/105
[2016-05-18] VITALS (13 sets, daily range): BP systolic 99–176; BP diastolic 65–114
[2016-05-18] MEDS: LORAZEPAM 2 MG/ML VIAL IV PRN (00:01)
[2016-05-18] MEDS: DIPHENHYDRAMINE 50 MG/ML VIAL IVP PRN (04:54)
[2016-05-18] MEDS ORDERED: HYDROCODONE/APAP 7.5/325MG TABLET. PO ONE (05:30)
[2016-05-18] MEDS ORDERED: CEFAZOLIN 2GM PREMIX 50 ML IV PRN (06:00)
[2016-05-18] MEDS ORDERED: MORPHINE SULFATE 5 MG, KETOROLAC TROMETHAMINE 30 MG, ROPIVacaine 0.5% PF 60 ML, EPINEPH... INT ART ONE ×5 (06:00)
[2016-05-18] MEDS ORDERED: HYDROCODONE/APAP 7.5/325MG TABLET. PO PRN ×2 (06:00→15:45)
[2016-05-18] MEDS ORDERED: TV=100ml MORPHINE 5 MG, KETOROLAC 30 MG, ROPIVacaine 0.5% PF 60 ML, EPINEPH... INT ART ONE ×5 (06:00)
[2016-05-18] MEDS ORDERED: DEXAMETHASONE SOD PHOS 20 MG/5 ML VIAL. ONE (06:57)
[2016-05-18] MEDS ORDERED: LIDOCAINE 2% 100 MG/5 ML DISP.SYRIN. ONE (06:57)
[2016-05-18] MEDS ORDERED: PROPOFOL 20 ML IV ONE (06:57)
[2016-05-18] MEDS ORDERED: ONDANSETRON PF 4 MG/2 ML VIAL. ONE (06:57)
[2016-05-18] MEDS ORDERED: FENTANYL PF 250 MCG/5 ML VIAL. ONE ×3 (06:57→13:27)
[2016-05-18] MEDS ORDERED: ROCURONIUM 50 MG/5 ML VIAL. ONE ×2 (06:58→08:27)
[2016-05-18] MEDS ORDERED: MIDAZOLAM HCL 2 MG/2 ML VIAL. ONE (06:58)
[2016-05-18] MEDS ORDERED: MORPHINE SULFATE 2 MG/ML DISP.SYRIN. IV PRN ×2 (07:00→15:45)
[2016-05-18] MEDS ORDERED: PROCHLORPERAZINE 10 MG/2 ML VIAL. IV PRN ×2 (07:00→15:45)
[2016-05-18] MEDS ORDERED: ONDANSETRON PF 4 MG/2 ML VIAL. IV PRN (07:00)
[2016-05-18] MEDS ORDERED: LIDOCAINE 1% 1 ML SYRINGE. ID PRN (07:00)
[2016-05-18] MEDS ORDERED: FENTANYL PF 100 MCG/2 ML VIAL. IV PRN (07:00)
[2016-05-18] MEDS: IV NORMAL SALINE 1000ML BAG 1,000 ML IV SCH (07:00)
[2016-05-18] MEDS ORDERED: ACETAMINOPHEN INTRAVENOUS 100 ML IV ONE (07:13)
[2016-05-18] MEDS ORDERED: CEFAZOLIN PREMIX 2 GM/50 ML BAG. IV ONE (07:30)
[2016-05-18] MEDS: IV NORMAL SALINE 500ML BAG 500 ML IV SCH (07:45)
[2016-05-18] MEDS ORDERED: CEFAZOLIN 1GM IVPB FOR OMNI 50 ML IV ONE ×2 (07:45→13:02)
[2016-05-18] MEDS ORDERED: MORPHINE PF 5 MG/10 ML VIAL. ONE (08:59)
[2016-05-18] MEDS: METOPROLOL SUCC 24HR ER 100 MG TAB.ER.24H. PO SCH (09:00)
[2016-05-18] MEDS: AMLODIPINE BESYLATE 10 MG TABLET PO SCH (09:00)
[2016-05-18] MEDS: POLYETHYLENE GLYCOL 3350 17 GM PACKET. PO SCH ×2 (09:00→21:00)
[2016-05-18] MEDS ORDERED: CEFAZOLIN 1GM IVPB FOR OMNI 50 ML IV PRN (09:30)
[2016-05-18 10:14] LABS: HEMATOCRIT 26.6 % (36.0-47.0); HEMOGLOBIN 8.8 g/dL (12.0-15.5); WHITE BLOOD COUNT 11.5 x10^3/uL (4.0-11.0)
--- NOTE | 2016-05-18 10:42 | PDOC ---
PROGRESS NOTES Chief Complaint Chief Complaint Abd pain ASSESSMENT AND PLAN: 1. Abd pain: chronic. unclear etiology (?narcotics, gastroparesis). bowel regimen, antiemetics 2. Narcotic dependence: left AMA becuse IV narcotics (not PO) were cut off. difficult to manage with upcoming surgery. minimize IV for now. likes "triple cocktail" of morphine, benadryl and ativan IV... 3. Hx osteomyelitis, L hip hardware removed, with plans of replacing it on Tues (?) by Dr Feldman. consulted. 4. elevated Alk Phos: isolated. most likely bone source. with above setting , worrisome. 5. ESRD: HD M/W/F 6. Anemia: severe. 2/2 ESRD. may need pre-op transfusion, to be done with HD in AM History of Present Illness History of Present Illness KNown to me Left AMA the last time bec wanted IV pain meds and could not wait Now out having orthopedic sx INR 1.2 REfsued labs this AM bec hard stick per RN note PLAN await form sx HD per renal Post op labs jigar AM Vitals Vitals Vital Signs Date Time Temp Pulse Resp B/P Pulse Ox O2 Delivery O2 Flow Rate FiO2 05/18/16 06:45 97.7 94 18 162/116 97 Room Air 97.7 Physical Exam General: Alert, Oriented X3, Cooperative Heart: Regular rate Lungs: Clear, Other Abdomen: Normal bowel sounds Extremities: No clubbing, No edema Skin: No rashes Labs LABS Laboratory Tests Test 05/17/16 11:00 05/17/16 16:30 05/17/16 18:15 05/18/16 10:00 White Blood Count 8.1x10^3/uL (4.0-11.0) 11.5x10^3/uL (4.0-11.0) Red Blood Count 2.61x10^6/uL (3.50-5.40) Hemoglobin 8.4g/dL (12.0-15.5) 8.8g/dL (12.0-15.5) Hematocrit 25.7% (36.0-47.0) 26.6% (36.0-47.0) Mean Corpuscular Volume 99fL (79-100) Mean Corpuscular Hemoglobin 32pg (25-35) Mean Corpuscular Hemoglobin Concent 33g/dL (31-37) Red Cell Distribution Width 20.0% (11.5-14.5) Platelet Count 189x10^3/uL (140-400) 223x10^3/uL (140-400) Neutrophils (%) (Auto) 77% (31-73) Lymphocytes (%) (Auto) 12% (24-48) Monocytes (%) (Auto) 5% (0-9) Eosinophils (%) (Auto) 5% (0-3) Basophils (%) (Auto) 1% (0-3) Neutrophils # (Auto) 6.2x10^3uL (1.8-7.7) Lymphocytes # (Auto) 1.0x10^3/uL (1.0-4.8) Monocytes # (Auto) 0.4x10^3/uL (0.0-1.1) Eosinophils # (Auto) 0.4x10^3/uL (0.0-0.7) Basophils # (Auto) 0.1x10^3/uL (0.0-0.2) Prothrombin Time 14.9SEC (11.7-14.0) Prothromb Time International Ratio 1.2 (0.8-1.1) Sodium Level 139mmol/L (136-145) 141mmol/L (136-145) Potassium Level 6.2mmol/L (3.5-5.1) 3.9mmol/L (3.5-5.1) Chloride Level 98mmol/L (98-107) 99mmol/L (98-107) Carbon Dioxide Level 26mmol/L (21-32) 29mmol/L (21-32) Anion Gap 15 (6-14) 13 (6-14) Blood Urea Nitrogen 52mg/dL (7-20) Creatinine 6.2mg/dL (0.6-1.0) Estimated GFR (Cockcroft-Gault) 8.2 Glucose Level 120mg/dL (70-99) Calcium Level 9.7mg/dL (8.5-10.1) Nasal Screen MRSA (PCR) Negative (Negative) Assessment and Plan Assessmemt and Plan Problems Medical Problems: (1) Abdominal pain Status: Acute (2) Intractable abdominal pain Status: Acute (3) Nausea & vomiting Status: Acute Problems: Comment Review of Relevant I have reviewed the following items lynnette (where applicable) has been applied. Labs Laboratory Tests Test 05/17/16 11:00 05/17/16 16:30 05/17/16 18:15 05/18/16 10:00 White Blood Count 8.1x10^3/uL (4.0-11.0) 11.5x10^3/uL (4.0-11.0) Red Blood Count 2.61x10^6/uL (3.50-5.40) Hemoglobin 8.4g/dL (12.0-15.5) 8.8g/dL (12.0-15.5) Hematocrit 25.7% (36.0-47.0) 26.6% (36.0-47.0) Mean Corpuscular Volume 99fL (79-100) Mean Corpuscular Hemoglobin 32pg (25-35) Mean Corpuscular Hemoglobin Concent 33g/dL (31-37) Red Cell Distribution Width 20.0% (11.5-14.5) Platelet Count 189x10^3/uL (140-400) 223x10^3/uL (140-400) Neutrophils (%) (Auto) 77% (31-73) Lymphocytes (%) (Auto) 12% (24-48) Monocytes (%) (Auto) 5% (0-9) Eosinophils (%) (Auto) 5% (0-3) Basophils (%) (Auto) 1% (0-3) Neutrophils # (Auto) 6.2x10^3uL (1.8-7.7) Lymphocytes # (Auto) 1.0x10^3/uL (1.0-4.8) Monocytes # (Auto) 0.4x10^3/uL (0.0-1.1) Eosinophils # (Auto) 0.4x10^3/uL (0.0-0.7) Basophils # (Auto) 0.1x10^3/uL (0.0-0.2) Prothrombin Time 14.9SEC (11.7-14.0) Prothromb Time International Ratio 1.2 (0.8-1.1) Sodium Level 139mmol/L (136-145) 141mmol/L (136-145) Potassium Level 6.2mmol/L (3.5-5.1) 3.9mmol/L (3.5-5.1) Chloride Level 98mmol/L (98-107) 99mmol/L (98-107) Carbon Dioxide Level 26mmol/L (21-32) 29mmol/L (21-32) Anion Gap 15 (6-14) 13 (6-14) Blood Urea Nitrogen 52mg/dL (7-20) Creatinine 6.2mg/dL (0.6-1.0) Estimated GFR (Cockcroft-Gault) 8.2 Glucose Level 120mg/dL (70-99) Calcium Level 9.7mg/dL (8.5-10.1) Nasal Screen MRSA (PCR) Negative (Negative) Laboratory Tests Test 05/17/16 11:00 05/17/16 16:30 05/17/16 18:15 05/18/16 10:00 White Blood Count 8.1x10^3/uL (4.0-11.0) 11.5x10^3/uL (4.0-11.0) Red Blood Count 2.61x10^6/uL (3.50-5.40) Hemoglobin 8.4g/dL (12.0-15.5) 8.8g/dL (12.0-15.5) Hematocrit 25.7% (36.0-47.0) 26.6% (36.0-47.0) Mean Corpuscular Volume 99fL (79-100) Mean Corpuscular Hemoglobin 32pg (25-35) Mean Corpuscular Hemoglobin Concent 33g/dL (31-37) Red Cell Distribution Width 20.0% (11.5-14.5) Platelet Count 189x10^3/uL (140-400) 223x10^3/uL (140-400) Neutrophils (%) (Auto) 77% (31-73) Lymphocytes (%) (Auto) 12% (24-48) Monocytes (%) (Auto) 5% (0-9) Eosinophils (%) (Auto) 5% (0-3) Basophils (%) (Auto) 1% (0-3) Neutrophils # (Auto) 6.2x10^3uL (1.8-7.7) Lymphocytes # (Auto) 1.0x10^3/uL (1.0-4.8) Monocytes # (Auto) 0.4x10^3/uL (0.0-1.1) Eosinophils # (Auto) 0.4x10^3/uL (0.0-0.7) Basophils # (Auto) 0.1x10^3/uL (0.0-0.2) Prothrombin Time 14.9SEC (11.7-14.0) Prothromb Time International Ratio 1.2 (0.8-1.1) Sodium Level 139mmol/L (136-145) 141mmol/L (136-145) Potassium Level 6.2mmol/L (3.5-5.1) 3.9mmol/L (3.5-5.1) Chloride Level 98mmol/L (98-107) 99mmol/L (98-107) Carbon Dioxide Level 26mmol/L (21-32) 29mmol/L (21-32) Anion Gap 15 (6-14) 13 (6-14) Blood Urea Nitrogen 52mg/dL (7-20) Creatinine 6.2mg/dL (0.6-1.0) Estimated GFR (Cockcroft-Gault) 8.2 Glucose Level 120mg/dL (70-99) Calcium Level 9.7mg/dL (8.5-10.1) Nasal Screen MRSA (PCR) Negative (Negative) Medications Current Medications Ondansetron HCl (Zofran) 4 mg 1X ONCE IV Last administered on 05/15/16 19:17 ; Start 05/15/16 at 19:00; Stop 05/15/16 at 19:01; Status DC Morphine Sulfate 4 mg 1X ONCE IV Last administered on 05/15/16 19:19; Start 05/15/16 at 19:00; Stop 05/15/16 at 19:01; Status DC Hydralazine HCl (Apresoline) 10 mg 1X ONCE IVP Last administered on 05/15/16 19:21; Start 05/15/16 at 19:00; Stop 05/15/16 at 19:01; Status DC Lorazepam (Ativan) 1 mg 1X ONCE PO Last administered on 05/15/16 20:04; Start 05/15/16 at 19:45; Stop 05/15/16 at 19:46; Status DC Alprazolam (Xanax) 2 mg PRN TID PRN PO ANXIETY / AGITATION; Start 05/15/16 at 20:45; Stop 05/15/16 at 20:47; Status DC Amlodipine Besylate (Norvasc) 10 mg DAILY PO Last administered on 05/17/16 08: 15; Start 05/16/16 at 09:00 Hydralazine HCl (Apresoline) 50 mg TID PO Last administered on 05/17/16 20:42 ; Start 05/16/16 at 09:00 Ondansetron HCl (Zofran Odt) 4 mg PRN Q8HRS PRN PO NAUSEA; Start 05/15/16 at 20 :45 Oxycodone/ Acetaminophen (Percocet 7.5/ 325) 1 tab PRN Q8HRS PRN PO PAIN; Start 05/15/16 at 20:45 Metoprolol Succinate (Toprol Xl) 200 mg DAILY PO Last administered on 08:15; Start 05/16/16 at 09:00 Alprazolam (Xanax) 2 mg PRN TID PRN PO ANXIETY / AGITATION; Start 05/15/16 at 20:47 Morphine Sulfate 4 mg 1X ONCE IV Last administered on 05/15/16 21:13; Start 05/15/16 at 21:00; Stop 05/15/16 at 21:01; Status DC Ondansetron HCl (Zofran) 4 mg 1X ONCE IV Last administered on 05/15/16 21:08 ; Start 05/15/16 at 21:00; Stop 05/15/16 at 21:01; Status DC Labetalol HCl (Normodyne) 20 mg PRN Q6HRS PRN IVP HYPERTENSION, SEE COMMENTS Last administered on 05/17/16 08:16; Start 05/15/16 at 23:30 Lorazepam (Ativan) 1 mg PRN Q6HRS PRN IV ANXIETY / AGITATION Last administered on 05/16/16 20:22; Start 05/15/16 at 23:30; Stop 05/16/16 at 22:44; Status DC Morphine Sulfate 2 mg PRN Q2HR PRN IV PAIN Last administered on 05/16/16 10:52 ; Start 05/15/16 at 23:30; Stop 05/16/16 at 11:42; Status DC Morphine Sulfate 4 mg PRN Q2HR PRN IV PAIN; Start 05/15/16 at 23:30; Stop 05/16 at 11:42; Status DC Diphenhydramine HCl (Benadryl) 50 mg PRN Q6HRS PRN IVP ITCHING Last administered on 05/16/16 20:23; Start 05/15/16 at 23:30; Stop 05/16/16 at 22:44 ; Status DC Morphine Sulfate 1 mg PRN Q2HR PRN IV PAIN Last administered on 05/17/16 18:38 ; Start 05/16/16 at 11:45 Diphenhydramine HCl (Benadryl) 25 mg PRN Q8HRS PRN IVP ITCHING Last administered on 05/18/16 04:54; Start 05/16/16 at 23:30 Lorazepam (Ativan) 0.5 mg PRN Q8HRS PRN IV ANXIETY / AGITATION Last administered on 05/18/16 00:01; Start 05/16/16 at 23:30 Metoclopramide HCl (Reglan) 5 mg PRN Q8HRS PRN IV NAUSEA/VOMITING; Start at 22:45 Polyethylene Glycol (miraLAX PACKET) 17 gm BID PO ; Start 05/17/16 at 09:00 Lidocaine HCl 2 ml 2 ml STK-MED ONCE .ROUTE ; Start 05/17/16 at 11:20; Stop at 11:21; Status DC Sodium Chloride (Iv Sodium Chloride 0.9% 1000ml Bag) 1,000 ml @ 1,000 mls/hr Q1H PRN IV hypotension; Start 05/17/16 at 12:42; Stop 05/17/16 at 18:41; Status DC Diphenhydramine HCl (Benadryl) 25 mg 1X PRN PRN IV ITCHING; Start 05/17/16 at 12:45; Stop 05/18/16 at 12:44 Diphenhydramine HCl (Benadryl) 25 mg 1X PRN PRN IV ITCHING; Start 05/17/16 at 12:45; Stop 05/18/16 at 12:44 Info (PHARMACY MONITORING -- do not chart) 1 each PRN DAILY PRN MC SEE COMMENTS ; Start 05/17/16 at 12:45; Status UNV Info 1 each 1 each PRN DAILY PRN MC SEE COMMENTS; Start 05/17/16 at 12:45; Status UNV Morphine Sulfate/ Ketorolac Tromethamine/ Ropivacaine/ Epinephrine HCl/ Sodium Chloride (Morphine 5mg Syringe/Toradol/ Naropin 0.5%/ Adrenalin/Iv Sodium Chloride 0.9% 100ml) 100.5 ml @ 100.5 mls/ hr 1X PERIOP ONCE INT ART Last administered on 05/18/16t 08:20; Start 05/18/16 at 06:00; Stop 05/18/16 at 06:59 ; Status DC Ondansetron HCl (Zofran) 4 mg PRN Q6HRS PRN IV Nausea; Start 05/18/16 at 07:00 ; Stop 05/19/16 at 06:59 Fentanyl Citrate (Fentanyl 2ml Vial) 25 mcg PRN Q5MIN PRN IV MILD PAIN; Start 05/18/16 at 07:00; Stop 05/19/16 at 06:59 Fentanyl Citrate (Fentanyl 2ml Vial) 50 mcg PRN Q5MIN PRN IV MODERATE PAIN; Start 05/18/16 at 07:00; Stop 05/19/16 at 06:59 Morphine Sulfate 1 mg PRN Q10MIN PRN IV SEVERE PAIN; Start 05/18/16 at 07:00; Stop 05/19/16 at 06:59 Lidocaine HCl 2 ml 1X PRN PRN ID IV START; Start 05/18/16 at 07:00; Stop at 06:59 Hydromorphone HCl (Dilaudid) 0.5 mg PRN Q10MIN PRN IV SEVERE PAIN, Second choice; Start 05/18/16 at 07:00; Stop 05/19/16 at 06:59 Prochlorperazine Edisylate 5 mg 5 mg PACU PRN PRN IV NAUSEA; Start 05/18/16 at 07:00; Stop 05/19/16 at 06:59 Sodium Chloride (Iv Sodium Chloride 0.9% 1000ml Bag) 1,000 ml @ 30 mls/hr Q24H IV ; Start 05/18/16 at 07:00 Warfarin Sodium (Coumadin) 5 mg 1X ONCE PO Last administered on 05/17/16t 16: 31; Start 05/17/16 at 17:00; Stop 05/17/16 at 17:01; Status DC Acetaminophen/ Hydrocodone Bitart (Lortab 7.5/325) 2 tab 1X ONCE PO ; Start at 05:30; Stop 05/18/16 at 05:31; Status Cancel Acetaminophen/ Hydrocodone Bitart 2 tab 2 tab 1X PREOP PRN PO PRIOR TO PROCEDURE; Start 05/18/16 at 06:00; Stop 05/18/16 at 18:00 Cefazolin Sodium/ Dextrose 50 ml @ 100 mls/hr 1X PREOP PRN IV PRIOR TO PROCEDURE; Start 05/18/16 at 06:00; Stop 05/18/16 at 18:00 Morphine Sulfate/ Ketorolac Tromethamine/ Ropivacaine/ Epinephrine HCl/ Sodium Chloride (Morphine 5mg Syringe/Toradol/ Naropin 0.5%/ Adrenalin/Iv Sodium Chloride 0.9% 50ml) 100.5 ml @ 100.5 mls/ hr 1X PERIOP ONCE INT ART ; Start at 06:00; Stop 05/18/16 at 06:59; Status Cancel Dexamethasone Sodium Phosphate (Decadron) 20 mg STK-MED ONCE .ROUTE ; Start at 06:57; Stop 05/18/16 at 06:58; Status DC Ondansetron HCl 4 mg 4 mg STK-MED ONCE .ROUTE ; Start 05/18/16 at 06:57; Stop at 06:58; Status DC Propofol (Diprivan) 20 ml @ As Directed STK-MED ONCE IV ; Start 05/18/16 at 06: 57; Stop 05/18/16 at 06:58; Status DC Lidocaine HCl 100 mg STK-MED ONCE .ROUTE ; Start 05/18/16 at 06:57; Stop at 06:58; Status DC Fentanyl Citrate (Fentanyl 5ml Vial) 250 mcg STK-MED ONCE .ROUTE ; Start at 06:57; Stop 05/18/16 at 06:58; Status DC Midazolam HCl (Versed) 2 mg STK-MED ONCE .ROUTE ; Start 05/18/16 at 06:58; Stop 05/18/16 at 06:59; Status DC Rocuronium [place] 50 mg 50 mg STK-MED ONCE .ROUTE ; Start 05/18/16 at 06:58; Stop 05/18/16 at 06:59; Status DC Acetaminophen 100 ml @ As Directed STK-MED ONCE IV ; Start 05/18/16 at 07:13; Stop 05/18/16 at 07:14; Status DC Sodium Chloride 500 ml @ 30 mls/hr Q53H42G IV ; Start 05/18/16 at 07:45 Cefazolin Sodium (Ancef 1gm Ivpb For Omni) 50 ml @ As Directed STK-MED ONCE IV ; Start 05/18/16 at 07:45; Stop 05/18/16 at 07:46; Status DC Fentanyl Citrate (Fentanyl 5ml Vial) 250 mcg STK-MED ONCE .ROUTE ; Start at 08:27; Stop 05/18/16 at 08:28; Status DC Rocuronium [place] (Zemuron) 50 mg STK-MED ONCE .ROUTE ; Start 05/18/16 at 08:27 ; Stop 05/18/16 at 08:28; Status DC Morphine Sulfate 5 mg 5 mg STK-MED ONCE .ROUTE ; Start 05/18/16 at 08:59; Stop 05/18/16 at 09:00; Status DC Cefazolin Sodium (Ancef 1gm Ivpb For Omni) 50 ml @ 100 mls/hr 1X PREOP PRN IV PER PROTOCOL Last administered on 05/18/16t 08:06; Start 05/18/16 at 09:30; Stop 05/19/16 at 09:29 Active Scripts Active Zofran Odt (Ondansetron) 4 Mg Tab.rapdis 1 Tab SL Q8HRS PRN Reported Percocet 7.5-325 Mg Tablet (Oxycodone/Acetaminophen) 1 Each Tablet 1 Tab PO PRN Q8HRS PRN Xanax (Alprazolam) 0.25 Mg Tablet 2 Mg PO TID PRN Metoprolol Succinate ( Xl ) (Metoprolol Succinate) 200 Mg Tab.er.24h 1 Tab PO DAILY Hydralazine Hcl 50 Mg Tablet 1 Tab PO TID Amlodipine Besylate 10 Mg Tablet 1 Tab PO DAILY Vitals/I & O Vital Sign - Last 24 Hours 05/17/16 05/17/16 05/17/16 05/17/16 11:00 13:41 16:32 17:24 Temp 99.2 99.2 Pulse 97 Resp 18 16 16 16 B/P 163/111 Pulse Ox 96 O2 Delivery Room Air Room Air Room Air 05/17/16 05/17/16 05/17/16 05/17/16 18:38 19:00 20:00 20:13 Temp 99.3 99.3 Pulse 97 Resp 16 18 B/P 150/87 Pulse Ox 100 O2 Delivery Room Air Room Air Room Air Room Air 05/17/16 05/17/16 05/18/16 05/18/16 20:42 23:00 03:00 06:45 Temp 98.0 97.0 97.7 98.0 97.0 97.7 Pulse 97 98 97 94 Resp 16 18 B/P 163/111 149/105 160/114 162/116 Pulse Ox 97 98 97 O2 Delivery High Flow Nasal Cannula Room Air Intake and Output 05/17/16 05/17/16 05/18/16 15:00 23:00 07:00 Intake Total 400 ml 0 ml Balance 400 ml 0 ml ROGERIO BERGMAN MD May 18, 2016 10:42
--- NOTE | 2016-05-18 11:03 | PDOC ---
Renal-Progress Notes Subjective Notes Notes NONE History of Present Illness Hx of present illness STABLE Vitals Vitals Vital Signs Date Time Temp Pulse Resp B/P Pulse Ox O2 Delivery O2 Flow Rate FiO2 05/18/16 06:45 97.7 94 18 162/116 97 Room Air 97.7 Weight Weight [ ] I.O. Intake and Output Intake and Output 05/18/16 07:00 Intake Total 400 ml Balance 400 ml Intake Oral 400 ml Labs Labs Laboratory Tests Test 05/17/16 16:30 05/17/16 18:15 05/18/16 10:00 Nasal Screen MRSA (PCR) Negative (Negative) Sodium Level 141mmol/L (136-145) Potassium Level 3.9mmol/L (3.5-5.1) Chloride Level 99mmol/L (98-107) Carbon Dioxide Level 29mmol/L (21-32) Anion Gap 13 (6-14) White Blood Count 11.5x10^3/uL (4.0-11.0) Hemoglobin 8.8g/dL (12.0-15.5) Hematocrit 26.6% (36.0-47.0) Platelet Count 223x10^3/uL (140-400) Review of Systems Constitutional: yes: alert, oriented, weakness Ears/Nose/Throat: Yes: no symptom reported Eyes: Yes: no symptom reported Cardiovascular: Yes no symptom reported Gastrointestional: Yes: no symptom reported Skin: Yes no symptom reported Physical Exam General Appearance: no apparent distress Skin: warm Respiratory: bilateral CTA Heart: S1S2 Abdomen: soft, bowel sounds present Genitourinary: bladder flat Extremities: pulses present Neurology: alert Musculoskeletal: Weakness Assessment Assessment IMP ANEMIA ESRD MALIGNANT HTN PLAN HD TUESDAY HIP PLACEMENT TODAY START SHEYLA-I WILL FOLLOW RUSLAN TEMPLE MD May 18, 2016 11:03
[2016-05-18] MEDS ORDERED: ALBUTEROL SULFATE 2.5 MG/3 ML NEBU. ONE (11:24)
[2016-05-18] MEDS: LISINOPRIL 20 MG TABLET PO SCH (11:30)
[2016-05-18] MEDS ORDERED: MORPHINE SULFATE 10 MG/ML VIAL. ONE (11:55)
[2016-05-18 12:52] LABS: BASO # 0.1 x10^3/uL (0.0-0.2); BASO % 1 % (0-3); EOS % 0 % (0-3); HEMATOCRIT 34.2 % (36.0-47.0); HEMOGLOBIN 11.3 g/dL (12.0-15.5); LYMPH # 0.9 x10^3/uL (1.0-4.8); LYMPH % 4 % (24-48); MEAN CORPUSCULAR HEMOGLOBIN 32 pg (25-35); MEAN CORPUSCULAR HGB CONC 33 g/dL (31-37); MEAN CORPUSCULAR VOLUME 95 fL (79-100); MONO % 1 % (0-9); NEUT % 94 % (31-73); PLATELET COUNT 187 x10^3/uL (140-400); RED BLOOD COUNT 3.58 x10^6/uL (3.50-5.40); RED CELL DISTRIBUTION WIDTH 18.1 % (11.5-14.5)
[2016-05-18 13:52] LABS: ALBUMIN 3.1 g/dL (3.4-5.0); CALCIUM 8.5 mg/dL (8.5-10.1); CREATININE 4.5 mg/dL (0.6-1.0); GFR 11.8; TOTAL BILIRUBIN 1.1 mg/dL (0.2-1.0); TOTAL PROTEIN 6.2 g/dL (6.4-8.2)
[2016-05-18] MEDS ORDERED: PHENYLEPHRINE in 0.9% NACL PF 1 MG/10 ML DISP.SYRIN. IV ONE (13:58)
[2016-05-18] MEDS: HYDRALAZINE 50 MG TABLET PO SCH ×2 (14:00→21:00)
[2016-05-18 14:01] LABS: POTASSIUM 7.8 mmol/L (3.5-5.1)
[2016-05-18] MEDS ORDERED: INSULIN REGULAR 100 UNIT/ML 10ML VIAL. IV ONE ×2 (14:15→19:00)
[2016-05-18 15:18] LABS: HEMOGLOBIN 8.2 g/dL (12.0-15.5); WHITE BLOOD COUNT 14.8 x10^3/uL (4.0-11.0)
[2016-05-18] MEDS: IV DEXTROSE 5 %-0.45 % NACL 1,000 ML IV SCH (15:31)
[2016-05-18] MEDS ORDERED: DEXTROSE 50% 25 GM / 50ML DISP.SYRIN. IV PRN (15:45)
[2016-05-18] MEDS ORDERED: OXYCODONE/APAP 7.5/325 TABLET. PO PRN (15:45)
[2016-05-18] MEDS ORDERED: CALCIUM CARBONATE 500 MG TAB.CHEW PO PRN (15:45)
[2016-05-18] MEDS ORDERED: OXYCODONE/APAP 5/325 TABLET. PO PRN (15:45)
[2016-05-18] MEDS ORDERED: TRAMADOL 50 MG TABLET. PO PRN ×2 (15:45)
[2016-05-18] MEDS ORDERED: MORPHINE SULFATE 4 MG/ML DISP.SYRIN. IV PRN (15:45)
[2016-05-18] MEDS ORDERED: HYDROCODONE/APAP 10/325 TABLET. PO PRN (15:45)
[2016-05-18] MEDS ORDERED: ACETAMINOPHEN 325 MG TABLET. PO PRN (15:45)
[2016-05-18] MEDS ORDERED: ZOLPIDEM 5 MG TABLET. PO PRN (15:45)
[2016-05-18] MEDS ORDERED: 0.9 % SODIUM CHLORIDE 10 ML DISP.SYRIN. IV PRN (15:45)
[2016-05-18] MEDS ORDERED: WARFARIN 5 MG TABLET. PO ONE (16:00)
--- NOTE | 2016-05-18 16:31 | RAD ---
Exam performed: Two views right hip including one view pelvis . Indication: Postop evaluation. Date of Service: 05/18/16. Single view pelvis and 2 views right hip from 05/12/16 Findings: There are postsurgical changes of total right hip arthroplasty with prosthesis in satisfactory position. There is expectant subcutaneous edema and emphysema. The left hip joint appears preserved. Subcutaneous macey are demonstrated. Impression: Postoperative changes of total right hip arthroplasty with intact prosthesis.
[2016-05-18] MEDS ORDERED: LIDOCAINE 1% / SOD BICARB 8.4% 20 ML VIAL. IJ ONE ×2 (16:51→17:30)
[2016-05-18] MEDS ORDERED: HEPARIN for IV BOLUS 10,000 UNIT/10 ML VIAL. ONE (16:52)
[2016-05-18] MEDS: FENTANYL PF 100 MCG/2 ML VIAL. IV PRN (16:53)
[2016-05-18] MEDS: FERROUS SULFATE 325 MG TABLET PO SCH (17:00)
[2016-05-18] MEDS ORDERED: IV NORMAL SALINE 1000ML BAG 1,000 ML IV PRN (17:23)
[2016-05-18] MEDS ORDERED: DIPHENHYDRAMINE 50 MG/ML VIAL IV PRN (17:30)
[2016-05-18] MEDS ORDERED: DIALYSIS PATIENT. MC PRN ×2 (17:30)
--- NOTE | 2016-05-18 17:30 | PDOC ---
BRIEF OPERATIVE NOTE Pre-Op Diagnosis CRF Post-Op Diagnosis same Procedure Performed Left groin temp HD Surgeon Liz Findings good manual flow rates Complications No immediate ADRIAN ALDRIDGE MD May 18, 2016 17:30
[2016-05-18] MEDS: CEFAZOLIN SODIUM 1 GM in IV NORMAL SALINE 50ML 50 ML IV SCH (18:09)
[2016-05-18] MEDS ORDERED: INSULIN ASPART 100 UNIT/ML 10ML VIAL. SQ ONE (18:30)
[2016-05-18] MEDS: PROPOFOL 100 ML IV PRN (18:54)
[2016-05-18 19:11] LABS: CREATININE 4.2 mg/dL (0.6-1.0); GFR 12.8; POTASSIUM 4.3 mmol/L (3.5-5.1)
--- NOTE | 2016-05-18 19:16 | PDOC5 ---
CODE REPORT CODE REPORT Code note The patient was in the ICU and she stopped breathing and no pulse was felt. The nurses called a code and initiated CPR. I arrived and found the patient unresponsive no pulse and CPR being done. The code was run and the patient was treated medically and she was also intubated during the code. I intubated the patient. After the patient was given meds and while being bagged we checked pulses and found that she had pulses and was now in sinus tachycardia with a blood pressure above 100. I have called the primary care physician and this patient and told him about the code. The patient is undergoing hemodialysis to correct her hyperkalemia and her acidosis. The chest x-ray was done and I checked it. The ET tube is in good position. Further care as per the patient's physicians. JEANNETTE MYERS MD May 18, 2016 19:16
[2016-05-18 19:21] LABS: ALBUMIN 1.9 g/dL (3.4-5.0); TOTAL BILIRUBIN 0.7 mg/dL (0.2-1.0); TOTAL PROTEIN 3.8 g/dL (6.4-8.2)
--- NOTE | 2016-05-18 19:26 | RAD ---
Portable chest one view Indication: Intubation post code. Time of exam 6:46 p.m. Comparison is made with recent chest from 05/13/2016. An endotracheal tube has been placed and has the tip in good position above the kaushal. The heart size is stable. Linear atelectasis left upper lobe is unchanged. No effusion or pneumothorax is seen. Impression: Satisfactory endotracheal tube placement. Electronically signed by: Javad Hathaway MD (May 18, 2016 19:25:07)
--- NOTE | 2016-05-18 19:42 | PDOC ---
PULMONARY PROGRESS NOTES Subjective pt evaluated and examined Vitals Vital Signs Date Time Temp Pulse Resp B/P Pulse Ox O2 Delivery O2 Flow Rate FiO2 05/18/16 18:42 Ventilator 05/18/16 17:45 100 2.0 05/18/16 17:45 20 05/18/16 17:40 107 99/65 05/18/16 17:20 97.8 97.8 General: Alert Lungs: Clear, Other Cardiovascular: S1 Abdomen: Soft, Non-tender Extremities: No Edema Labs Laboratory Tests Test 05/17/16 11:00 05/17/16 16:30 05/17/16 18:15 05/18/16 10:00 White Blood Count 8.1x10^3/uL (4.0-11.0) 11.5x10^3/uL (4.0-11.0) Red Blood Count 2.61x10^6/uL (3.50-5.40) Hemoglobin 8.4g/dL (12.0-15.5) 8.8g/dL (12.0-15.5) Hematocrit 25.7% (36.0-47.0) 26.6% (36.0-47.0) Mean Corpuscular Volume 99fL (79-100) Mean Corpuscular Hemoglobin 32pg (25-35) Mean Corpuscular Hemoglobin Concent 33g/dL (31-37) Red Cell Distribution Width 20.0% (11.5-14.5) Platelet Count 189x10^3/uL (140-400) 223x10^3/uL (140-400) Neutrophils (%) (Auto) 77% (31-73) Lymphocytes (%) (Auto) 12% (24-48) Monocytes (%) (Auto) 5% (0-9) Eosinophils (%) (Auto) 5% (0-3) Basophils (%) (Auto) 1% (0-3) Neutrophils # (Auto) 6.2x10^3uL (1.8-7.7) Lymphocytes # (Auto) 1.0x10^3/uL (1.0-4.8) Monocytes # (Auto) 0.4x10^3/uL (0.0-1.1) Eosinophils # (Auto) 0.4x10^3/uL (0.0-0.7) Basophils # (Auto) 0.1x10^3/uL (0.0-0.2) Prothrombin Time 14.9SEC (11.7-14.0) Prothromb Time International Ratio 1.2 (0.8-1.1) Sodium Level 139mmol/L (136-145) 141mmol/L (136-145) Potassium Level 6.2mmol/L (3.5-5.1) 3.9mmol/L (3.5-5.1) Chloride Level 98mmol/L (98-107) 99mmol/L (98-107) Carbon Dioxide Level 26mmol/L (21-32) 29mmol/L (21-32) Anion Gap 15 (6-14) 13 (6-14) Blood Urea Nitrogen 52mg/dL (7-20) Creatinine 6.2mg/dL (0.6-1.0) Estimated GFR (Cockcroft-Gault) 8.2 Glucose Level 120mg/dL (70-99) Calcium Level 9.7mg/dL (8.5-10.1) Nasal Screen MRSA (PCR) Negative (Negative) Erythrocyte Sedimentation Rate 12 (0-25) Test 05/18/16 12:45 05/18/16 14:45 05/18/16 18:40 White Blood Count 21.0x10^3/uL (4.0-11.0) 14.8x10^3/uL (4.0-11.0) Red Blood Count 3.58x10^6/uL (3.50-5.40) Hemoglobin 11.3g/dL (12.0-15.5) 8.2g/dL (12.0-15.5) Hematocrit 34.2% (36.0-47.0) 25.0% (36.0-47.0) Mean Corpuscular Volume 95fL (79-100) Mean Corpuscular Hemoglobin 32pg (25-35) Mean Corpuscular Hemoglobin Concent 33g/dL (31-37) Red Cell Distribution Width 18.1% (11.5-14.5) Platelet Count 187x10^3/uL (140-400) 103x10^3/uL (140-400) Neutrophils (%) (Auto) 94% (31-73) Lymphocytes (%) (Auto) 4% (24-48) Monocytes (%) (Auto) 1% (0-9) Eosinophils (%) (Auto) 0% (0-3) Basophils (%) (Auto) 1% (0-3) Neutrophils # (Auto) 19.7x10^3uL (1.8-7.7) Lymphocytes # (Auto) 0.9x10^3/uL (1.0-4.8) Monocytes # (Auto) 0.2x10^3/uL (0.0-1.1) Eosinophils # (Auto) 0.1x10^3/uL (0.0-0.7) Basophils # (Auto) 0.1x10^3/uL (0.0-0.2) Sodium Level 136mmol/L (136-145) 141mmol/L (136-145) Potassium Level 7.8mmol/L (3.5-5.1) 7.2mmol/L (3.5-5.1) 4.3mmol/L (3.5-5.1) Chloride Level 98mmol/L (98-107) 100mmol/L (98-107) Carbon Dioxide Level 23mmol/L (21-32) 22mmol/L (21-32) Anion Gap 15 (6-14) 19 (6-14) Blood Urea Nitrogen 34mg/dL (7-20) 33mg/dL (7-20) Creatinine 4.5mg/dL (0.6-1.0) 4.2mg/dL (0.6-1.0) Estimated GFR (Cockcroft-Gault) 11.8 12.8 BUN/Creatinine Ratio 8 (6-20) 8 (6-20) Glucose Level 231mg/dL (70-99) 377mg/dL (70-99) Calcium Level 8.5mg/dL (8.5-10.1) 7.0mg/dL (8.5-10.1) Total Bilirubin 1.1mg/dL (0.2-1.0) 0.7mg/dL (0.2-1.0) Aspartate Amino Transf (AST/SGOT) 18U/L (15-37) 735U/L (15-37) Alanine Aminotransferase (ALT/SGPT) 17U/L (14-59) 566U/L (14-59) Alkaline Phosphatase 610U/L (46-116) 396U/L (46-116) Total Protein 6.2g/dL (6.4-8.2) 3.8g/dL (6.4-8.2) Albumin 3.1g/dL (3.4-5.0) 1.9g/dL (3.4-5.0) Albumin/Globulin Ratio 1.0 (1.0-1.7) 1.0 (1.0-1.7) Laboratory Tests Test 05/18/16 10:00 05/18/16 12:45 05/18/16 14:45 05/18/16 18:40 White Blood Count 11.5x10^3/uL (4.0-11.0) 21.0x10^3/uL (4.0-11.0) 14.8x10^3/uL (4.0-11.0) Hemoglobin 8.8g/dL (12.0-15.5) 11.3g/dL (12.0-15.5) 8.2g/dL (12.0-15.5) Hematocrit 26.6% (36.0-47.0) 34.2% (36.0-47.0) 25.0% (36.0-47.0) Platelet Count 223x10^3/uL (140-400) 187x10^3/uL (140-400) 103x10^3/uL (140-400) Erythrocyte Sedimentation Rate 12 (0-25) Red Blood Count 3.58x10^6/uL (3.50-5.40) Mean Corpuscular Volume 95fL (79-100) Mean Corpuscular Hemoglobin 32pg (25-35) Mean Corpuscular Hemoglobin Concent 33g/dL (31-37) Red Cell Distribution Width 18.1% (11.5-14.5) Neutrophils (%) (Auto) 94% (31-73) Lymphocytes (%) (Auto) 4% (24-48) Monocytes (%) (Auto) 1% (0-9) Eosinophils (%) (Auto) 0% (0-3) Basophils (%) (Auto) 1% (0-3) Neutrophils # (Auto) 19.7x10^3uL (1.8-7.7) Lymphocytes # (Auto) 0.9x10^3/uL (1.0-4.8) Monocytes # (Auto) 0.2x10^3/uL (0.0-1.1) Eosinophils # (Auto) 0.1x10^3/uL (0.0-0.7) Basophils # (Auto) 0.1x10^3/uL (0.0-0.2) Sodium Level 136mmol/L (136-145) 141mmol/L (136-145) Potassium Level 7.8mmol/L (3.5-5.1) 7.2mmol/L (3.5-5.1) 4.3mmol/L (3.5-5.1) Chloride Level 98mmol/L (98-107) 100mmol/L (98-107) Carbon Dioxide Level 23mmol/L (21-32) 22mmol/L (21-32) Anion Gap 15 (6-14) 19 (6-14) Blood Urea Nitrogen 34mg/dL (7-20) 33mg/dL (7-20) Creatinine 4.5mg/dL (0.6-1.0) 4.2mg/dL (0.6-1.0) Estimated GFR (Cockcroft-Gault) 11.8 12.8 BUN/Creatinine Ratio 8 (6-20) 8 (6-20) Glucose Level 231mg/dL (70-99) 377mg/dL (70-99) Calcium Level 8.5mg/dL (8.5-10.1) 7.0mg/dL (8.5-10.1) Total Bilirubin 1.1mg/dL (0.2-1.0) 0.7mg/dL (0.2-1.0) Aspartate Amino Transf (AST/SGOT) 18U/L (15-37) 735U/L (15-37) Alanine Aminotransferase (ALT/SGPT) 17U/L (14-59) 566U/L (14-59) Alkaline Phosphatase 610U/L (46-116) 396U/L (46-116) Total Protein 6.2g/dL (6.4-8.2) 3.8g/dL (6.4-8.2) Albumin 3.1g/dL (3.4-5.0) 1.9g/dL (3.4-5.0) Albumin/Globulin Ratio 1.0 (1.0-1.7) 1.0 (1.0-1.7) Medications Active Scripts Medications Dose Route/Sig Days Date Category Zofran Odt (Ondansetron) 4 Mg Tab.rapdis 1 Tab SL Q8HRS PRN 10/28/15 Rx Percocet 7.5-325 Mg Tablet (Oxycodone/Acetaminophen) 1 Each Tablet 1 Tab PO PRN Q8HRS PRN 08/30/14 Reported Xanax (Alprazolam) 0.25 Mg Tablet 2 Mg PO TID PRN 11/10/13 Reported Metoprolol Succinate ( Xl ) (Metoprolol Succinate) 200 Mg Tab.er.24h 1 Tab PO DAILY 11/10/13 Reported Hydralazine Hcl 50 Mg Tablet 1 Tab PO TID 11/10/13 Reported Amlodipine Besylate 10 Mg Tablet 1 Tab PO DAILY 11/10/13 Reported Impression . ACUTE RESP FAILURE SEC TO PEA PEA SUSPECT ACIDOSIS VS HYPOVOLEMIA/HYPERKALEMIA ESRD S/P HIP REPAIR FULL NOTE TO BE DICTATED SEE ORDERS ISIS WHEAT MD May 18, 2016 19:42
[2016-05-18 19:50] LABS: BASO % 0 % (0-3); EOS % 0 % (0-3); LYMPH # 0.8 x10^3/uL (1.0-4.8); LYMPH % 5 % (24-48); MEAN CORPUSCULAR HEMOGLOBIN 31 pg (25-35); MEAN CORPUSCULAR HGB CONC 33 g/dL (31-37); MEAN CORPUSCULAR VOLUME 96 fL (79-100); MONO % 2 % (0-9); NEUT % 92 % (31-73); PLATELET COUNT 78 x10^3/uL (140-400); RED BLOOD COUNT 1.65 x10^6/uL (3.50-5.40); RED CELL DISTRIBUTION WIDTH 18.7 % (11.5-14.5); WHITE BLOOD COUNT 14.4 x10^3/uL (4.0-11.0)
[2016-05-18 19:57] LABS: HEMATOCRIT 15.8 % (36.0-47.0); HEMOGLOBIN 5.1 g/dL (12.0-15.5)
[2016-05-18 20:03] LABS: INR 3.2 (0.8-1.1); PROTHROMBIN TIME PATIENT 31.3 SEC (11.7-14.0)
[2016-05-18 20:03] LABS: HCO3 ABG 21 mmol/L (21-28); PCO2 ABG 30 mmHg (35-46); PH ABG 7.47 (7.35-7.45); PO2 ABG 317 mmHg (85-108); SAT O2 ABG 99 % (92-99)
[2016-05-18 20:04] LABS: FIO2 ABG 70
--- NOTE | 2016-05-18 21:55 | PDOC ---
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
[2016-05-18] MEDS: HYDROMORPHONE 2 MG/ML VIAL. IV PRN (23:15)
[2016-05-19] VITALS (27 sets, daily range): BP systolic 134–213; BP diastolic 54–108
[2016-05-19] MEDS: FENTANYL PF 100 MCG/2 ML VIAL. IV PRN ×9 (00:19→23:57)
[2016-05-19] MEDS: IV NORMAL SALINE 500ML BAG 500 ML IV SCH (00:25)
[2016-05-19] MEDS: CEFAZOLIN SODIUM 1 GM in IV NORMAL SALINE 50ML 50 ML IV SCH ×2 (00:33→05:00)
[2016-05-19] MEDS: HYDROMORPHONE 2 MG/ML VIAL. IV PRN (00:53)
[2016-05-19] MEDS: IV DEXTROSE 5 %-0.45 % NACL 1,000 ML IV SCH (01:31)
[2016-05-19] MEDS: DIPHENHYDRAMINE 50 MG/ML VIAL IV PRN ×3 (02:10→19:36)
[2016-05-19] MEDS: PROPOFOL 100 ML IV PRN (02:10)
[2016-05-19] MEDS: MORPHINE SULFATE 10 MG/ML VIAL. IV PRN ×8 (03:19→22:30)
[2016-05-19] MEDS: LORAZEPAM 2 MG/ML VIAL IV PRN ×3 (04:05→22:29)
[2016-05-19] MEDS ORDERED: MAGNESIUM HYDROXIDE 2,400 MG/30 ML ORAL.SUSP. PO PRN (06:00)
[2016-05-19] MEDS: IV NORMAL SALINE 1000ML BAG 1,000 ML IV SCH (07:00)
[2016-05-19 07:52] LABS: CALCIUM 8.7 mg/dL (8.5-10.1); CREATININE 4.7 mg/dL (0.6-1.0); GFR 11.2; MAGNESIUM 1.9 mg/dL (1.8-2.4); PHOSPHORUS 6.4 mg/dL (2.6-4.7)
[2016-05-19] MEDS: FERROUS SULFATE 325 MG TABLET PO SCH ×2 (08:00→17:00)
[2016-05-19] MEDS: POLYETHYLENE GLYCOL 3350 17 GM PACKET. PO SCH ×2 (08:22→20:58)
[2016-05-19] MEDS: AMLODIPINE BESYLATE 10 MG TABLET PO SCH (08:22)
[2016-05-19] MEDS: MULTIVITAMIN with MINERAL TABLET. PO SCH (08:22)
[2016-05-19] MEDS: HYDRALAZINE 50 MG TABLET PO SCH ×3 (08:22→20:57)
[2016-05-19] MEDS: LISINOPRIL 20 MG TABLET PO SCH (08:22)
[2016-05-19] MEDS: METOPROLOL SUCC 24HR ER 100 MG TAB.ER.24H. PO SCH (08:23)
[2016-05-19] MEDS: SENNOSIDES/DOCUSATE 8.6/50MG TABLET. PO SCH (08:26)
[2016-05-19 08:58] LABS: HCO3 ABG 24 mmol/L (21-28); PCO2 ABG 32 mmHg (35-46); PH ABG 7.49 (7.35-7.45); PO2 ABG 73 mmHg (85-108); SAT O2 ABG 94 % (92-99)
[2016-05-19 09:00] LABS: FIO2 ABG 40
--- NOTE | 2016-05-19 09:15 | RAD ---
Portable abdomen, 05/18/2016: History: Check dialysis catheter placement A multilumen dialysis type catheter is present projected over the left groin region and left side of the pelvis extending into the region of the inferior vena cava at the L2-3 level. A right hip prosthesis is in place. Surgical skin clips overlie the right hip laterally. There are surgical clips in the right upper quadrant. The abdominal gas pattern is unremarkable. Scattered vascular calcifications are evident. IMPRESSION: The left groin dialysis type catheter extends into the inferior vena cava at the L2-3 level.
--- NOTE | 2016-05-19 09:54 | RAD ---
Portable chest, 05/19/2016: History: Respiratory failure Comparison is made to a study from 05/18/2016. The ET tube has its tip located well above the kaushal. A vascular stent is again noted projected over the left innominate vein region. The heart is enlarged. The pulmonary vascularity is normal. There is mild ongoing atelectasis laterally on the left. There are several rib fractures laterally on the right at least one of which is mildly displaced. These were also present on yesterday's study. There is minimal adjacent pleural thickening. No new pulmonary abnormality is seen. There is no evidence of significant pleural fluid or pneumothorax. IMPRESSION: 1. Cardiomegaly.. 2. Mild ongoing atelectasis on the left. 3. Right rib fractures
--- NOTE | 2016-05-19 09:55 | RAD ---
Procedure: Temporary hemodialysis catheter placement at the bedside. Clinical Indication: 26-year-old with chronic renal failure and thrombosed dialysis fistula Sedation: Local anesthesia only Antibiotics: None Fluoro Time: Not applicable Contrast: None Sterility: All elements of maximal sterile barrier technique including the use of a cap, mask, sterile gown, sterile gloves, large sterile sheet, appropriate hand hygiene, and 2% chlorhexidine for cutaneous antisepsis (or acceptable alternative antiseptic per current guidelines) were followed for this procedure. Consent: The procedure was explained in its entirety to the patient or the patients designated pharmacy services representative by a member of the treatment team, including a discussion of the risks, benefits and commonly accepted alternatives to the procedure, as well as the expected consequences of no therapy whatsoever. Discussion of the risks included, but was not limited to, those that are most frequent and those that are rare but possibly severe or life-threatening, as well as the possibility of unforeseen complications. Technique and Findings: Following informed consent, the patient was prepped and draped in the usual sterile fashion. 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 A 21-gauge micropuncture needle was used to gain access to this vein after 1% Lidocaine was used to achieve local anesthesia. A hardcopy ultrasound image was recorded. The needle was exchanged over a wire for serial dilators followed by a 24 cm temporary hemodialysis catheter which was deployed in the expected location of the IVC. The catheter flow rates were assessed manually and found to be excellent. The catheter was then flushed, packed with Heparin, capped, and sutured to the skin. KUB x-ray was then obtained to assess line position. Complications: No immediate Impression: 1. Ultrasound guided placement of a temporary hemodialysis catheter which exhibits excellent manual flow rates as described.
--- NOTE | 2016-05-19 10:38 | PDOC ---
Renal-Progress Notes Subjective Notes Notes EXTUBATED, ALERT AND ORIENTED History of Present Illness Hx of present illness STABLE Vitals Vitals Vital Signs Date Time Temp Pulse Resp B/P Pulse Ox O2 Delivery O2 Flow Rate FiO2 05/19/16 10:04 Nasal Cannula 5.0 05/19/16 10:00 100 35 196/88 100 05/19/16 08:00 97.7 97.7 Weight Weight [ ] I.O. Intake and Output Intake and Output 05/19/16 07:00 Intake Total 2580 ml Output Total 2850 ml Balance -270 ml Intake Oral 50 ml IV Total 1315 ml Blood Product 600 ml Blood Product IV Normal Saline Flush 615 ml Output Urine Total 0 ml Estimated Blood Loss 2850 ml Labs Labs Laboratory Tests Test 05/18/16 12:45 05/18/16 14:45 05/18/16 18:40 05/18/16 19:55 White Blood Count 21.0x10^3/uL (4.0-11.0) 14.8x10^3/uL (4.0-11.0) 14.4x10^3/uL (4.0-11.0) Red Blood Count 3.58x10^6/uL (3.50-5.40) 1.65x10^6/uL (3.50-5.40) Hemoglobin 11.3g/dL (12.0-15.5) 8.2g/dL (12.0-15.5) 5.1g/dL (12.0-15.5) Hematocrit 34.2% (36.0-47.0) 25.0% (36.0-47.0) 15.8% (36.0-47.0) Mean Corpuscular Volume 95fL (79-100) 96fL (79-100) Mean Corpuscular Hemoglobin 32pg (25-35) 31pg (25-35) Mean Corpuscular Hemoglobin Concent 33g/dL (31-37) 33g/dL (31-37) Red Cell Distribution Width 18.1% (11.5-14.5) 18.7% (11.5-14.5) Platelet Count 187x10^3/uL (140-400) 103x10^3/uL (140-400) 78x10^3/uL (140-400) Neutrophils (%) (Auto) 94% (31-73) 92% (31-73) Lymphocytes (%) (Auto) 4% (24-48) 5% (24-48) Monocytes (%) (Auto) 1% (0-9) 2% (0-9) Eosinophils (%) (Auto) 0% (0-3) 0% (0-3) Basophils (%) (Auto) 1% (0-3) 0% (0-3) Neutrophils # (Auto) 19.7x10^3uL (1.8-7.7) 13.3x10^3uL (1.8-7.7) Lymphocytes # (Auto) 0.9x10^3/uL (1.0-4.8) 0.8x10^3/uL (1.0-4.8) Monocytes # (Auto) 0.2x10^3/uL (0.0-1.1) 0.3x10^3/uL (0.0-1.1) Eosinophils # (Auto) 0.1x10^3/uL (0.0-0.7) 0.0x10^3/uL (0.0-0.7) Basophils # (Auto) 0.1x10^3/uL (0.0-0.2) 0.0x10^3/uL (0.0-0.2) Sodium Level 136mmol/L (136-145) 141mmol/L (136-145) Potassium Level 7.8mmol/L (3.5-5.1) 7.2mmol/L (3.5-5.1) 4.3mmol/L (3.5-5.1) Chloride Level 98mmol/L (98-107) 100mmol/L (98-107) Carbon Dioxide Level 23mmol/L (21-32) 22mmol/L (21-32) Anion Gap 15 (6-14) 19 (6-14) Blood Urea Nitrogen 34mg/dL (7-20) 33mg/dL (7-20) Creatinine 4.5mg/dL (0.6-1.0) 4.2mg/dL (0.6-1.0) Estimated GFR (Cockcroft-Gault) 11.8 12.8 BUN/Creatinine Ratio 8 (6-20) 8 (6-20) Glucose Level 231mg/dL (70-99) 377mg/dL (70-99) Calcium Level 8.5mg/dL (8.5-10.1) 7.0mg/dL (8.5-10.1) Total Bilirubin 1.1mg/dL (0.2-1.0) 0.7mg/dL (0.2-1.0) Aspartate Amino Transf (AST/SGOT) 18U/L (15-37) 735U/L (15-37) Alanine Aminotransferase (ALT/SGPT) 17U/L (14-59) 566U/L (14-59) Alkaline Phosphatase 610U/L (46-116) 396U/L (46-116) Total Protein 6.2g/dL (6.4-8.2) 3.8g/dL (6.4-8.2) Albumin 3.1g/dL (3.4-5.0) 1.9g/dL (3.4-5.0) Albumin/Globulin Ratio 1.0 (1.0-1.7) 1.0 (1.0-1.7) Prothrombin Time 31.3SEC (11.7-14.0) Prothromb Time International Ratio 3.2 (0.8-1.1) Activated Partial Thromboplast Time 43SEC (24-38) O2 Saturation 99% (92-99) Arterial Blood pH 7.47 (7.35-7.45) Arterial Blood pCO2 at Patient Temp 30mmHg (35-46) Arterial Blood pO2 at Patient Temp 317mmHg (85-108) Arterial Blood HCO3 21mmol/L (21-28) Arterial Blood Base Excess -2mmol/L (-3-3) FiO2 70 Test 05/19/16 07:20 05/19/16 08:45 Hemoglobin 8.2g/dL (12.0-15.5) Sodium Level 143mmol/L (136-145) Potassium Level 5.0mmol/L (3.5-5.1) Chloride Level 104mmol/L (98-107) Carbon Dioxide Level 26mmol/L (21-32) Anion Gap 13 (6-14) Blood Urea Nitrogen 44mg/dL (7-20) Creatinine 4.7mg/dL (0.6-1.0) Estimated GFR (Cockcroft-Gault) 11.2 Glucose Level 81mg/dL (70-99) Calcium Level 8.7mg/dL (8.5-10.1) Phosphorus Level 6.4mg/dL (2.6-4.7) Magnesium Level 1.9mg/dL (1.8-2.4) O2 Saturation 94% (92-99) Arterial Blood pH 7.49 (7.35-7.45) Arterial Blood pCO2 at Patient Temp 32mmHg (35-46) Arterial Blood pO2 at Patient Temp 73mmHg (85-108) Arterial Blood HCO3 24mmol/L (21-28) Arterial Blood Base Excess 1mmol/L (-3-3) FiO2 40 Review of Systems Constitutional: yes: alert, oriented, weakness Ears/Nose/Throat: Yes: no symptom reported Eyes: Yes: no symptom reported Cardiovascular: Yes no symptom reported Gastrointestional: Yes: no symptom reported Skin: Yes no symptom reported Physical Exam General Appearance: no apparent distress Skin: warm Respiratory: bilateral CTA Heart: S1S2 Abdomen: soft, bowel sounds present Genitourinary: bladder flat Extremities: pulses present Neurology: alert Musculoskeletal: Weakness Assessment Assessment IMP S/P HIP ARTHROPLASTY ANEMIA ESRD HTN RESP FAILURE HYPERKALEMIA THROMBOSED LEFT ARM GRAFT PLAN EMERGENT HD DONE LAST NIGHT HD AGAIN IN AM VIA TEMP HD CATHETER PLACED YESTERDAY WILL NEED TO HAVE IR DO LEFT ARM GRAFT THROMBECTOMY HAVE D/W IR RUSLAN TEMPLE MD May 19, 2016 10:38
[2016-05-19] MEDS ORDERED: EPINEPHRINE 1 MG/10 ML DISP.SYRIN. ONE (12:00)
[2016-05-19] MEDS ORDERED: SODIUM BICARB ADULT 8.4% 50 MEQ/50 ML DISP.SYRIN. ONE (12:00)
[2016-05-19] MEDS ORDERED: DEXTROSE 50% 25 GM / 50ML DISP.SYRIN. IV ONE (12:00)
[2016-05-19] MEDS: LABETALOL 20 MG/4 ML DISP.SYRIN. IVP PRN ×2 (12:59→19:37)
[2016-05-19] MEDS ORDERED: DIPHENHYDRAMINE 50 MG/ML VIAL IM ONE (13:15)
--- NOTE | 2016-05-19 14:34 | PDOC ---
PULMONARY PROGRESS NOTES Subjective pt sedated but awake wants tube out Vitals Vital Signs Date Time Temp Pulse Resp B/P Pulse Ox O2 Delivery O2 Flow Rate FiO2 05/19/16 13:27 21 96 Nasal Cannula 2.0 05/19/16 13:00 106 207/100 05/19/16 12:00 98.6 98.6 General: Alert Lungs: Clear, Other Cardiovascular: S1, S2 Abdomen: Soft, Non-tender Neuro Exam: Alert Extremities: No Edema Skin: Warm Labs Laboratory Tests Test 05/17/16 16:30 05/17/16 18:15 05/18/16 10:00 05/18/16 12:45 Nasal Screen MRSA (PCR) Negative (Negative) Sodium Level 141mmol/L (136-145) 136mmol/L (136-145) Potassium Level 3.9mmol/L (3.5-5.1) 7.8mmol/L (3.5-5.1) Chloride Level 99mmol/L (98-107) 98mmol/L (98-107) Carbon Dioxide Level 29mmol/L (21-32) 23mmol/L (21-32) Anion Gap 13 (6-14) 15 (6-14) White Blood Count 11.5x10^3/uL (4.0-11.0) 21.0x10^3/uL (4.0-11.0) Hemoglobin 8.8g/dL (12.0-15.5) 11.3g/dL (12.0-15.5) Hematocrit 26.6% (36.0-47.0) 34.2% (36.0-47.0) Platelet Count 223x10^3/uL (140-400) 187x10^3/uL (140-400) Erythrocyte Sedimentation Rate 12 (0-25) Red Blood Count 3.58x10^6/uL (3.50-5.40) Mean Corpuscular Volume 95fL (79-100) Mean Corpuscular Hemoglobin 32pg (25-35) Mean Corpuscular Hemoglobin Concent 33g/dL (31-37) Red Cell Distribution Width 18.1% (11.5-14.5) Neutrophils (%) (Auto) 94% (31-73) Lymphocytes (%) (Auto) 4% (24-48) Monocytes (%) (Auto) 1% (0-9) Eosinophils (%) (Auto) 0% (0-3) Basophils (%) (Auto) 1% (0-3) Neutrophils # (Auto) 19.7x10^3uL (1.8-7.7) Lymphocytes # (Auto) 0.9x10^3/uL (1.0-4.8) Monocytes # (Auto) 0.2x10^3/uL (0.0-1.1) Eosinophils # (Auto) 0.1x10^3/uL (0.0-0.7) Basophils # (Auto) 0.1x10^3/uL (0.0-0.2) Blood Urea Nitrogen 34mg/dL (7-20) Creatinine 4.5mg/dL (0.6-1.0) Estimated GFR (Cockcroft-Gault) 11.8 BUN/Creatinine Ratio 8 (6-20) Glucose Level 231mg/dL (70-99) Calcium Level 8.5mg/dL (8.5-10.1) Total Bilirubin 1.1mg/dL (0.2-1.0) Aspartate Amino Transf (AST/SGOT) 18U/L (15-37) Alanine Aminotransferase (ALT/SGPT) 17U/L (14-59) Alkaline Phosphatase 610U/L (46-116) Total Protein 6.2g/dL (6.4-8.2) Albumin 3.1g/dL (3.4-5.0) Albumin/Globulin Ratio 1.0 (1.0-1.7) Test 05/18/16 14:45 05/18/16 18:40 05/18/16 19:55 05/19/16 07:20 White Blood Count 14.8x10^3/uL (4.0-11.0) 14.4x10^3/uL (4.0-11.0) Hemoglobin 8.2g/dL (12.0-15.5) 5.1g/dL (12.0-15.5) 8.2g/dL (12.0-15.5) Hematocrit 25.0% (36.0-47.0) 15.8% (36.0-47.0) Platelet Count 103x10^3/uL (140-400) 78x10^3/uL (140-400) Potassium Level 7.2mmol/L (3.5-5.1) 4.3mmol/L (3.5-5.1) 5.0mmol/L (3.5-5.1) Red Blood Count 1.65x10^6/uL (3.50-5.40) Mean Corpuscular Volume 96fL (79-100) Mean Corpuscular Hemoglobin 31pg (25-35) Mean Corpuscular Hemoglobin Concent 33g/dL (31-37) Red Cell Distribution Width 18.7% (11.5-14.5) Neutrophils (%) (Auto) 92% (31-73) Lymphocytes (%) (Auto) 5% (24-48) Monocytes (%) (Auto) 2% (0-9) Eosinophils (%) (Auto) 0% (0-3) Basophils (%) (Auto) 0% (0-3) Neutrophils # (Auto) 13.3x10^3uL (1.8-7.7) Lymphocytes # (Auto) 0.8x10^3/uL (1.0-4.8) Monocytes # (Auto) 0.3x10^3/uL (0.0-1.1) Eosinophils # (Auto) 0.0x10^3/uL (0.0-0.7) Basophils # (Auto) 0.0x10^3/uL (0.0-0.2) Prothrombin Time 31.3SEC (11.7-14.0) Prothromb Time International Ratio 3.2 (0.8-1.1) Activated Partial Thromboplast Time 43SEC (24-38) Sodium Level 141mmol/L (136-145) 143mmol/L (136-145) Chloride Level 100mmol/L (98-107) 104mmol/L (98-107) Carbon Dioxide Level 22mmol/L (21-32) 26mmol/L (21-32) Anion Gap 19 (6-14) 13 (6-14) Blood Urea Nitrogen 33mg/dL (7-20) 44mg/dL (7-20) Creatinine 4.2mg/dL (0.6-1.0) 4.7mg/dL (0.6-1.0) Estimated GFR (Cockcroft-Gault) 12.8 11.2 BUN/Creatinine Ratio 8 (6-20) Glucose Level 377mg/dL (70-99) 81mg/dL (70-99) Calcium Level 7.0mg/dL (8.5-10.1) 8.7mg/dL (8.5-10.1) Total Bilirubin 0.7mg/dL (0.2-1.0) Aspartate Amino Transf (AST/SGOT) 735U/L (15-37) Alanine Aminotransferase (ALT/SGPT) 566U/L (14-59) Alkaline Phosphatase 396U/L (46-116) Total Protein 3.8g/dL (6.4-8.2) Albumin 1.9g/dL (3.4-5.0) Albumin/Globulin Ratio 1.0 (1.0-1.7) O2 Saturation 99% (92-99) Arterial Blood pH 7.47 (7.35-7.45) Arterial Blood pCO2 at Patient Temp 30mmHg (35-46) Arterial Blood pO2 at Patient Temp 317mmHg (85-108) Arterial Blood HCO3 21mmol/L (21-28) Arterial Blood Base Excess -2mmol/L (-3-3) FiO2 70 Phosphorus Level 6.4mg/dL (2.6-4.7) Magnesium Level 1.9mg/dL (1.8-2.4) Test 05/19/16 08:45 O2 Saturation 94% (92-99) Arterial Blood pH 7.49 (7.35-7.45) Arterial Blood pCO2 at Patient Temp 32mmHg (35-46) Arterial Blood pO2 at Patient Temp 73mmHg (85-108) Arterial Blood HCO3 24mmol/L (21-28) Arterial Blood Base Excess 1mmol/L (-3-3) FiO2 40 Laboratory Tests Test 05/18/16 14:45 05/18/16 18:40 05/18/16 19:55 05/19/16 07:20 White Blood Count 14.8x10^3/uL (4.0-11.0) 14.4x10^3/uL (4.0-11.0) Hemoglobin 8.2g/dL (12.0-15.5) 5.1g/dL (12.0-15.5) 8.2g/dL (12.0-15.5) Hematocrit 25.0% (36.0-47.0) 15.8% (36.0-47.0) Platelet Count 103x10^3/uL (140-400) 78x10^3/uL (140-400) Potassium Level 7.2mmol/L (3.5-5.1) 4.3mmol/L (3.5-5.1) 5.0mmol/L (3.5-5.1) Red Blood Count 1.65x10^6/uL (3.50-5.40) Mean Corpuscular Volume 96fL (79-100) Mean Corpuscular Hemoglobin 31pg (25-35) Mean Corpuscular Hemoglobin Concent 33g/dL (31-37) Red Cell Distribution Width 18.7% (11.5-14.5) Neutrophils (%) (Auto) 92% (31-73) Lymphocytes (%) (Auto) 5% (24-48) Monocytes (%) (Auto) 2% (0-9) Eosinophils (%) (Auto) 0% (0-3) Basophils (%) (Auto) 0% (0-3) Neutrophils # (Auto) 13.3x10^3uL (1.8-7.7) Lymphocytes # (Auto) 0.8x10^3/uL (1.0-4.8) Monocytes # (Auto) 0.3x10^3/uL (0.0-1.1) Eosinophils # (Auto) 0.0x10^3/uL (0.0-0.7) Basophils # (Auto) 0.0x10^3/uL (0.0-0.2) Prothrombin Time 31.3SEC (11.7-14.0) Prothromb Time International Ratio 3.2 (0.8-1.1) Activated Partial Thromboplast Time 43SEC (24-38) Sodium Level 141mmol/L (136-145) 143mmol/L (136-145) Chloride Level 100mmol/L (98-107) 104mmol/L (98-107) Carbon Dioxide Level 22mmol/L (21-32) 26mmol/L (21-32) Anion Gap 19 (6-14) 13 (6-14) Blood Urea Nitrogen 33mg/dL (7-20) 44mg/dL (7-20) Creatinine 4.2mg/dL (0.6-1.0) 4.7mg/dL (0.6-1.0) Estimated GFR (Cockcroft-Gault) 12.8 11.2 BUN/Creatinine Ratio 8 (6-20) Glucose Level 377mg/dL (70-99) 81mg/dL (70-99) Calcium Level 7.0mg/dL (8.5-10.1) 8.7mg/dL (8.5-10.1) Total Bilirubin 0.7mg/dL (0.2-1.0) Aspartate Amino Transf (AST/SGOT) 735U/L (15-37) Alanine Aminotransferase (ALT/SGPT) 566U/L (14-59) Alkaline Phosphatase 396U/L (46-116) Total Protein 3.8g/dL (6.4-8.2) Albumin 1.9g/dL (3.4-5.0) Albumin/Globulin Ratio 1.0 (1.0-1.7) O2 Saturation 99% (92-99) Arterial Blood pH 7.47 (7.35-7.45) Arterial Blood pCO2 at Patient Temp 30mmHg (35-46) Arterial Blood pO2 at Patient Temp 317mmHg (85-108) Arterial Blood HCO3 21mmol/L (21-28) Arterial Blood Base Excess -2mmol/L (-3-3) FiO2 70 Phosphorus Level 6.4mg/dL (2.6-4.7) Magnesium Level 1.9mg/dL (1.8-2.4) Test 05/19/16 08:45 O2 Saturation 94% (92-99) Arterial Blood pH 7.49 (7.35-7.45) Arterial Blood pCO2 at Patient Temp 32mmHg (35-46) Arterial Blood pO2 at Patient Temp 73mmHg (85-108) Arterial Blood HCO3 24mmol/L (21-28) Arterial Blood Base Excess 1mmol/L (-3-3) FiO2 40 Medications Active Scripts Medications Dose Route/Sig Days Date Category Zofran Odt (Ondansetron) 4 Mg Tab.rapdis 1 Tab SL Q8HRS PRN 10/28/15 Rx Percocet 7.5-325 Mg Tablet (Oxycodone/Acetaminophen) 1 Each Tablet 1 Tab PO PRN Q8HRS PRN 08/30/14 Reported Xanax (Alprazolam) 0.25 Mg Tablet 2 Mg PO TID PRN 11/10/13 Reported Metoprolol Succinate ( Xl ) (Metoprolol Succinate) 200 Mg Tab.er.24h 1 Tab PO DAILY 11/10/13 Reported Hydralazine Hcl 50 Mg Tablet 1 Tab PO TID 11/10/13 Reported Amlodipine Besylate 10 Mg Tablet 1 Tab PO DAILY 11/10/13 Reported Impression . ACUTE RESP FAILURE SEC TO PEA PEA SUSPECT ACIDOSIS VS HYPOVOLEMIA/HYPERKALEMIA ESRD S/P HIP REPAIR Plan . pt overnight hemodynamically stable labs reviewed will proceed with extubation spoke with RT and RN ISIS WHEAT MD May 19, 2016 14:34
--- NOTE | 2016-05-19 15:19 | PDOC ---
PROGRESS NOTES Chief Complaint Chief Complaint Abdominal Pain 1. Abdominal pain; chronic, unclear etiology 2. Narcotic dependence. 3. Hx osteomyelitis, and replaced hip hardware. 4. elevated Alk Phos; isolated. 5. ESRD: HD M/W/F 6. Anemia; severe, 2/2 ESRD. History of Present Illness History of Present Illness Patient seen in ICU. Friends at bedside. O2 sat 96% on 2.0 L nasal cannula. Was extubated this AM after being intubated last night following a Code Blue. Pt was undergoing hemodialysis when she reported not feeling well and she slumped forward in the seat and code was called. During compressions from RN pt had several ribs fractured. Pt reports pain of the chest wall 2/2 to the trauma; R> L. Pt complaining of diffuse itchiness, for which she requests Benadryl for control. Vitals Vitals Vital Signs Date Time Temp Pulse Resp B/P Pulse Ox O2 Delivery O2 Flow Rate FiO2 05/19/16 15:00 109 13 208/99 96 Nasal Cannula 2.0 05/19/16 12:00 98.6 98.6 Physical Exam General: Alert, Oriented X3, Cooperative Heart: Regular rate Lungs: Clear, Other (painful over R ribs, following last night's code/CPR) Abdomen: Normal bowel sounds Extremities: No clubbing, No edema Skin: No rashes Labs LABS Laboratory Tests Test 05/18/16 18:40 05/18/16 19:55 05/19/16 07:20 05/19/16 08:45 White Blood Count 14.4x10^3/uL (4.0-11.0) Red Blood Count 1.65x10^6/uL (3.50-5.40) Hemoglobin 5.1g/dL (12.0-15.5) 8.2g/dL (12.0-15.5) Hematocrit 15.8% (36.0-47.0) Mean Corpuscular Volume 96fL (79-100) Mean Corpuscular Hemoglobin 31pg (25-35) Mean Corpuscular Hemoglobin Concent 33g/dL (31-37) Red Cell Distribution Width 18.7% (11.5-14.5) Platelet Count 78x10^3/uL (140-400) Neutrophils (%) (Auto) 92% (31-73) Lymphocytes (%) (Auto) 5% (24-48) Monocytes (%) (Auto) 2% (0-9) Eosinophils (%) (Auto) 0% (0-3) Basophils (%) (Auto) 0% (0-3) Neutrophils # (Auto) 13.3x10^3uL (1.8-7.7) Lymphocytes # (Auto) 0.8x10^3/uL (1.0-4.8) Monocytes # (Auto) 0.3x10^3/uL (0.0-1.1) Eosinophils # (Auto) 0.0x10^3/uL (0.0-0.7) Basophils # (Auto) 0.0x10^3/uL (0.0-0.2) Prothrombin Time 31.3SEC (11.7-14.0) Prothromb Time International Ratio 3.2 (0.8-1.1) Activated Partial Thromboplast Time 43SEC (24-38) Sodium Level 141mmol/L (136-145) 143mmol/L (136-145) Potassium Level 4.3mmol/L (3.5-5.1) 5.0mmol/L (3.5-5.1) Chloride Level 100mmol/L (98-107) 104mmol/L (98-107) Carbon Dioxide Level 22mmol/L (21-32) 26mmol/L (21-32) Anion Gap 19 (6-14) 13 (6-14) Blood Urea Nitrogen 33mg/dL (7-20) 44mg/dL (7-20) Creatinine 4.2mg/dL (0.6-1.0) 4.7mg/dL (0.6-1.0) Estimated GFR (Cockcroft-Gault) 12.8 11.2 BUN/Creatinine Ratio 8 (6-20) Glucose Level 377mg/dL (70-99) 81mg/dL (70-99) Calcium Level 7.0mg/dL (8.5-10.1) 8.7mg/dL (8.5-10.1) Total Bilirubin 0.7mg/dL (0.2-1.0) Aspartate Amino Transf (AST/SGOT) 735U/L (15-37) Alanine Aminotransferase (ALT/SGPT) 566U/L (14-59) Alkaline Phosphatase 396U/L (46-116) Total Protein 3.8g/dL (6.4-8.2) Albumin 1.9g/dL (3.4-5.0) Albumin/Globulin Ratio 1.0 (1.0-1.7) O2 Saturation 99% (92-99) 94% (92-99) Arterial Blood pH 7.47 (7.35-7.45) 7.49 (7.35-7.45) Arterial Blood pCO2 at Patient Temp 30mmHg (35-46) 32mmHg (35-46) Arterial Blood pO2 at Patient Temp 317mmHg (85-108) 73mmHg (85-108) Arterial Blood HCO3 21mmol/L (21-28) 24mmol/L (21-28) Arterial Blood Base Excess -2mmol/L (-3-3) 1mmol/L (-3-3) FiO2 70 40 Phosphorus Level 6.4mg/dL (2.6-4.7) Magnesium Level 1.9mg/dL (1.8-2.4) Review of Systems Review of Systems Denies fever/chills complaints of pain over r chest wall, 2/2 to r sided rib fractures following last night's chest compressions Assessment and Plan Assessmemt and Plan ASSESSMENT: - Abdominal pain; intractable/chronic, unclear etiology (?narcotics, gastroparesis?) - narcotic dependence - Hx osteomyelitis, R hip hardware removed and replaced - ESRD, MWF HD - Anemia, severe, 2/2 ESRD - elevated Alk Phos, isolated, most likely bone source. PLAN: - PRN Benadryl for itchiness - cont antiemetics - cont bowel regimen - cont wound care - cont pain control - HD M/W/F - appreciate subspecialty input Problems: Comment Review of Relevant I have reviewed the following items lynnette (where applicable) has been applied. Labs Laboratory Tests Test 05/17/16 16:30 05/17/16 18:15 05/18/16 10:00 05/18/16 12:45 Nasal Screen MRSA (PCR) Negative (Negative) Sodium Level 141mmol/L (136-145) 136mmol/L (136-145) Potassium Level 3.9mmol/L (3.5-5.1) 7.8mmol/L (3.5-5.1) Chloride Level 99mmol/L (98-107) 98mmol/L (98-107) Carbon Dioxide Level 29mmol/L (21-32) 23mmol/L (21-32) Anion Gap 13 (6-14) 15 (6-14) White Blood Count 11.5x10^3/uL (4.0-11.0) 21.0x10^3/uL (4.0-11.0) Hemoglobin 8.8g/dL (12.0-15.5) 11.3g/dL (12.0-15.5) Hematocrit 26.6% (36.0-47.0) 34.2% (36.0-47.0) Platelet Count 223x10^3/uL (140-400) 187x10^3/uL (140-400) Erythrocyte Sedimentation Rate 12 (0-25) Red Blood Count 3.58x10^6/uL (3.50-5.40) Mean Corpuscular Volume 95fL (79-100) Mean Corpuscular Hemoglobin 32pg (25-35) Mean Corpuscular Hemoglobin Concent 33g/dL (31-37) Red Cell Distribution Width 18.1% (11.5-14.5) Neutrophils (%) (Auto) 94% (31-73) Lymphocytes (%) (Auto) 4% (24-48) Monocytes (%) (Auto) 1% (0-9) Eosinophils (%) (Auto) 0% (0-3) Basophils (%) (Auto) 1% (0-3) Neutrophils # (Auto) 19.7x10^3uL (1.8-7.7) Lymphocytes # (Auto) 0.9x10^3/uL (1.0-4.8) Monocytes # (Auto) 0.2x10^3/uL (0.0-1.1) Eosinophils # (Auto) 0.1x10^3/uL (0.0-0.7) Basophils # (Auto) 0.1x10^3/uL (0.0-0.2) Blood Urea Nitrogen 34mg/dL (7-20) Creatinine 4.5mg/dL (0.6-1.0) Estimated GFR (Cockcroft-Gault) 11.8 BUN/Creatinine Ratio 8 (6-20) Glucose Level 231mg/dL (70-99) Calcium Level 8.5mg/dL (8.5-10.1) Total Bilirubin 1.1mg/dL (0.2-1.0) Aspartate Amino Transf (AST/SGOT) 18U/L (15-37) Alanine Aminotransferase (ALT/SGPT) 17U/L (14-59) Alkaline Phosphatase 610U/L (46-116) Total Protein 6.2g/dL (6.4-8.2) Albumin 3.1g/dL (3.4-5.0) Albumin/Globulin Ratio 1.0 (1.0-1.7) Test 05/18/16 14:45 05/18/16 18:40 05/18/16 19:55 05/19/16 07:20 White Blood Count 14.8x10^3/uL (4.0-11.0) 14.4x10^3/uL (4.0-11.0) Hemoglobin 8.2g/dL (12.0-15.5) 5.1g/dL (12.0-15.5) 8.2g/dL (12.0-15.5) Hematocrit 25.0% (36.0-47.0) 15.8% (36.0-47.0) Platelet Count 103x10^3/uL (140-400) 78x10^3/uL (140-400) Potassium Level 7.2mmol/L (3.5-5.1) 4.3mmol/L (3.5-5.1) 5.0mmol/L (3.5-5.1) Red Blood Count 1.65x10^6/uL (3.50-5.40) Mean Corpuscular Volume 96fL (79-100) Mean Corpuscular Hemoglobin 31pg (25-35) Mean Corpuscular Hemoglobin Concent 33g/dL (31-37) Red Cell Distribution Width 18.7% (11.5-14.5) Neutrophils (%) (Auto) 92% (31-73) Lymphocytes (%) (Auto) 5% (24-48) Monocytes (%) (Auto) 2% (0-9) Eosinophils (%) (Auto) 0% (0-3) Basophils (%) (Auto) 0% (0-3) Neutrophils # (Auto) 13.3x10^3uL (1.8-7.7) Lymphocytes # (Auto) 0.8x10^3/uL (1.0-4.8) Monocytes # (Auto) 0.3x10^3/uL (0.0-1.1) Eosinophils # (Auto) 0.0x10^3/uL (0.0-0.7) Basophils # (Auto) 0.0x10^3/uL (0.0-0.2) Prothrombin Time 31.3SEC (11.7-14.0) Prothromb Time International Ratio 3.2 (0.8-1.1) Activated Partial Thromboplast Time 43SEC (24-38) Sodium Level 141mmol/L (136-145) 143mmol/L (136-145) Chloride Level 100mmol/L (98-107) 104mmol/L (98-107) Carbon Dioxide Level 22mmol/L (21-32) 26mmol/L (21-32) Anion Gap 19 (6-14) 13 (6-14) Blood Urea Nitrogen 33mg/dL (7-20) 44mg/dL (7-20) Creatinine 4.2mg/dL (0.6-1.0) 4.7mg/dL (0.6-1.0) Estimated GFR (Cockcroft-Gault) 12.8 11.2 BUN/Creatinine Ratio 8 (6-20) Glucose Level 377mg/dL (70-99) 81mg/dL (70-99) Calcium Level 7.0mg/dL (8.5-10.1) 8.7mg/dL (8.5-10.1) Total Bilirubin 0.7mg/dL (0.2-1.0) Aspartate Amino Transf (AST/SGOT) 735U/L (15-37) Alanine Aminotransferase (ALT/SGPT) 566U/L (14-59) Alkaline Phosphatase 396U/L (46-116) Total Protein 3.8g/dL (6.4-8.2) Albumin 1.9g/dL (3.4-5.0) Albumin/Globulin Ratio 1.0 (1.0-1.7) O2 Saturation 99% (92-99) Arterial Blood pH 7.47 (7.35-7.45) Arterial Blood pCO2 at Patient Temp 30mmHg (35-46) Arterial Blood pO2 at Patient Temp 317mmHg (85-108) Arterial Blood HCO3 21mmol/L (21-28) Arterial Blood Base Excess -2mmol/L (-3-3) FiO2 70 Phosphorus Level 6.4mg/dL (2.6-4.7) Magnesium Level 1.9mg/dL (1.8-2.4) Test 05/19/16 08:45 O2 Saturation 94% (92-99) Arterial Blood pH 7.49 (7.35-7.45) Arterial Blood pCO2 at Patient Temp 32mmHg (35-46) Arterial Blood pO2 at Patient Temp 73mmHg (85-108) Arterial Blood HCO3 24mmol/L (21-28) Arterial Blood Base Excess 1mmol/L (-3-3) FiO2 40 Laboratory Tests Test 05/18/16 18:40 05/18/16 19:55 05/19/16 07:20 05/19/16 08:45 White Blood Count 14.4x10^3/uL (4.0-11.0) Red Blood Count 1.65x10^6/uL (3.50-5.40) Hemoglobin 5.1g/dL (12.0-15.5) 8.2g/dL (12.0-15.5) Hematocrit 15.8% (36.0-47.0) Mean Corpuscular Volume 96fL (79-100) Mean Corpuscular Hemoglobin 31pg (25-35) Mean Corpuscular Hemoglobin Concent 33g/dL (31-37) Red Cell Distribution Width 18.7% (11.5-14.5) Platelet Count 78x10^3/uL (140-400) Neutrophils (%) (Auto) 92% (31-73) Lymphocytes (%) (Auto) 5% (24-48) Monocytes (%) (Auto) 2% (0-9) Eosinophils (%) (Auto) 0% (0-3) Basophils (%) (Auto) 0% (0-3) Neutrophils # (Auto) 13.3x10^3uL (1.8-7.7) Lymphocytes # (Auto) 0.8x10^3/uL (1.0-4.8) Monocytes # (Auto) 0.3x10^3/uL (0.0-1.1) Eosinophils # (Auto) 0.0x10^3/uL (0.0-0.7) Basophils # (Auto) 0.0x10^3/uL (0.0-0.2) Prothrombin Time 31.3SEC (11.7-14.0) Prothromb Time International Ratio 3.2 (0.8-1.1) Activated Partial Thromboplast Time 43SEC (24-38) Sodium Level 141mmol/L (136-145) 143mmol/L (136-145) Potassium Level 4.3mmol/L (3.5-5.1) 5.0mmol/L (3.5-5.1) Chloride Level 100mmol/L (98-107) 104mmol/L (98-107) Carbon Dioxide Level 22mmol/L (21-32) 26mmol/L (21-32) Anion Gap 19 (6-14) 13 (6-14) Blood Urea Nitrogen 33mg/dL (7-20) 44mg/dL (7-20) Creatinine 4.2mg/dL (0.6-1.0) 4.7mg/dL (0.6-1.0) Estimated GFR (Cockcroft-Gault) 12.8 11.2 BUN/Creatinine Ratio 8 (6-20) Glucose Level 377mg/dL (70-99) 81mg/dL (70-99) Calcium Level 7.0mg/dL (8.5-10.1) 8.7mg/dL (8.5-10.1) Total Bilirubin 0.7mg/dL (0.2-1.0) Aspartate Amino Transf (AST/SGOT) 735U/L (15-37) Alanine Aminotransferase (ALT/SGPT) 566U/L (14-59) Alkaline Phosphatase 396U/L (46-116) Total Protein 3.8g/dL (6.4-8.2) Albumin 1.9g/dL (3.4-5.0) Albumin/Globulin Ratio 1.0 (1.0-1.7) O2 Saturation 99% (92-99) 94% (92-99) Arterial Blood pH 7.47 (7.35-7.45) 7.49 (7.35-7.45) Arterial Blood pCO2 at Patient Temp 30mmHg (35-46) 32mmHg (35-46) Arterial Blood pO2 at Patient Temp 317mmHg (85-108) 73mmHg (85-108) Arterial Blood HCO3 21mmol/L (21-28) 24mmol/L (21-28) Arterial Blood Base Excess -2mmol/L (-3-3) 1mmol/L (-3-3) FiO2 70 40 Phosphorus Level 6.4mg/dL (2.6-4.7) Magnesium Level 1.9mg/dL (1.8-2.4) Medications Current Medications Ondansetron HCl (Zofran) 4 mg 1X ONCE IV Last administered on 05/15/16 19:17 ; Start 05/15/16 at 19:00; Stop 05/15/16 at 19:01; Status DC Morphine Sulfate 4 mg 1X ONCE IV Last administered on 05/15/16 19:19; Start 05/15/16 at 19:00; Stop 05/15/16 at 19:01; Status DC Hydralazine HCl (Apresoline) 10 mg 1X ONCE IVP Last administered on 05/15/16 19:21; Start 05/15/16 at 19:00; Stop 05/15/16 at 19:01; Status DC Lorazepam (Ativan) 1 mg 1X ONCE PO Last administered on 05/15/16 20:04; Start 05/15/16 at 19:45; Stop 05/15/16 at 19:46; Status DC Alprazolam (Xanax) 2 mg PRN TID PRN PO ANXIETY / AGITATION; Start 05/15/16 at 20:45; Stop 05/15/16 at 20:47; Status DC Amlodipine Besylate (Norvasc) 10 mg DAILY PO Last administered on 05/17/16 08: 15; Start 05/16/16 at 09:00 Hydralazine HCl (Apresoline) 50 mg TID PO Last administered on 05/17/16 20:42 ; Start 05/16/16 at 09:00 Ondansetron HCl (Zofran Odt) 4 mg PRN Q8HRS PRN PO NAUSEA; Start 05/15/16 at 20 :45 Oxycodone/ Acetaminophen (Percocet 7.5/ 325) 1 tab PRN Q8HRS PRN PO PAIN; Start 05/15/16 at 20:45; Status Cancel Metoprolol Succinate (Toprol Xl) 200 mg DAILY PO Last administered on 08:15; Start 05/16/16 at 09:00 Alprazolam (Xanax) 2 mg PRN TID PRN PO ANXIETY / AGITATION; Start 05/15/16 at 20:47 Morphine Sulfate 4 mg 1X ONCE IV Last administered on 05/15/16 21:13; Start 05/15/16 at 21:00; Stop 05/15/16 at 21:01; Status DC Ondansetron HCl (Zofran) 4 mg 1X ONCE IV Last administered on 05/15/16 21:08 ; Start 05/15/16 at 21:00; Stop 05/15/16 at 21:01; Status DC Labetalol HCl (Normodyne) 20 mg PRN Q6HRS PRN IVP HYPERTENSION, SEE COMMENTS Last administered on 05/19/16 12:59; Start 05/15/16 at 23:30 Lorazepam (Ativan) 1 mg PRN Q6HRS PRN IV ANXIETY / AGITATION Last administered on 05/16/16 20:22; Start 05/15/16 at 23:30; Stop 05/16/16 at 22:44; Status DC Morphine Sulfate 2 mg PRN Q2HR PRN IV PAIN Last administered on 05/16/16 10:52 ; Start 05/15/16 at 23:30; Stop 05/16/16 at 11:42; Status DC Morphine Sulfate 4 mg PRN Q2HR PRN IV PAIN; Start 05/15/16 at 23:30; Stop 05/16 at 11:42; Status DC Diphenhydramine HCl (Benadryl) 50 mg PRN Q6HRS PRN IVP ITCHING Last administered on 05/16/16 20:23; Start 05/15/16 at 23:30; Stop 05/16/16 at 22:44 ; Status DC Morphine Sulfate 1 mg PRN Q2HR PRN IV PAIN Last administered on 05/17/16 18:38 ; Start 05/16/16 at 11:45 Diphenhydramine HCl (Benadryl) 25 mg PRN Q8HRS PRN IVP ITCHING Last administered on 05/18/16 04:54; Start 05/16/16 at 23:30; Stop 05/18/16 at 15:51 ; Status DC Lorazepam (Ativan) 0.5 mg PRN Q8HRS PRN IV ANXIETY / AGITATION Last administered on 05/19/16 04:05; Start 05/16/16 at 23:30 Metoclopramide HCl (Reglan) 5 mg PRN Q8HRS PRN IV NAUSEA/VOMITING; Start at 22:45 Polyethylene Glycol (miraLAX PACKET) 17 gm BID PO ; Start 05/17/16 at 09:00 Lidocaine HCl 2 ml 2 ml STK-MED ONCE .ROUTE ; Start 05/17/16 at 11:20; Stop at 11:21; Status DC Sodium Chloride (Iv Sodium Chloride 0.9% 1000ml Bag) 1,000 ml @ 1,000 mls/hr Q1H PRN IV hypotension; Start 05/17/16 at 12:42; Stop 05/17/16 at 18:41; Status DC Diphenhydramine HCl (Benadryl) 25 mg 1X PRN PRN IV ITCHING; Start 05/17/16 at 12:45; Stop 05/18/16 at 12:44; Status DC Diphenhydramine HCl (Benadryl) 25 mg 1X PRN PRN IV ITCHING; Start 05/17/16 at 12:45; Stop 05/18/16 at 12:44; Status DC Info (PHARMACY MONITORING -- do not chart) 1 each PRN DAILY PRN MC SEE COMMENTS ; Start 05/17/16 at 12:45; Status UNV Info 1 each 1 each PRN DAILY PRN MC SEE COMMENTS; Start 05/17/16 at 12:45; Status UNV Morphine Sulfate/ Ketorolac Tromethamine/ Ropivacaine/ Epinephrine HCl/ Sodium Chloride (Morphine 5mg Syringe/Toradol/ Naropin 0.5%/ Adrenalin/Iv Sodium Chloride 0.9% 100ml) 100.5 ml @ 100.5 mls/ hr 1X PERIOP ONCE INT ART Last administered on 05/18/16 08:20; Start 05/18/16 at 06:00; Stop 05/18/16 at 06:59 ; Status DC Ondansetron HCl (Zofran) 4 mg PRN Q6HRS PRN IV Nausea; Start 05/18/16 at 07:00 ; Stop 05/19/16 at 06:59; Status DC Fentanyl Citrate (Fentanyl 2ml Vial) 25 mcg PRN Q5MIN PRN IV MILD PAIN Last administered on 05/18/16 16:42; Start 05/18/16 at 07:00; Stop 05/19/16 at 06:59 ; Status DC Fentanyl Citrate (Fentanyl 2ml Vial) 50 mcg PRN Q5MIN PRN IV MODERATE PAIN Last administered on 05/19/16 02:10; Start 05/18/16 at 07:00; Stop 05/19/16 at 06 :59; Status DC Morphine Sulfate 1 mg PRN Q10MIN PRN IV SEVERE PAIN; Start 05/18/16 at 07:00; Stop 05/19/16 at 06:59; Status DC Lidocaine HCl 2 ml 1X PRN PRN ID IV START; Start 05/18/16 at 07:00; Stop at 06:59; Status DC Hydromorphone HCl (Dilaudid) 0.5 mg PRN Q10MIN PRN IV SEVERE PAIN, Second choice Last administered on 05/19/16 00:53; Start 05/18/16 at 07:00; Stop at 06:59; Status DC Prochlorperazine Edisylate 5 mg 5 mg PACU PRN PRN IV NAUSEA; Start 05/18/16 at 07:00; Stop 05/19/16 at 06:59; Status DC Sodium Chloride (Iv Sodium Chloride 0.9% 1000ml Bag) 1,000 ml @ 30 mls/hr Q24H IV ; Start 05/18/16 at 07:00; Stop 05/19/16 at 07:48; Status DC Warfarin Sodium (Coumadin) 5 mg 1X ONCE PO Last administered on 05/17/16 16: 31; Start 05/17/16 at 17:00; Stop 05/17/16 at 17:01; Status DC Acetaminophen/ Hydrocodone Bitart (Lortab 7.5/325) 2 tab 1X ONCE PO ; Start at 05:30; Stop 05/18/16 at 05:31; Status Cancel Acetaminophen/ Hydrocodone Bitart 2 tab 2 tab 1X PREOP PRN PO PRIOR TO PROCEDURE; Start 05/18/16 at 06:00; Stop 05/18/16 at 18:00; Status DC Cefazolin Sodium/ Dextrose 50 ml @ 100 mls/hr 1X PREOP PRN IV PRIOR TO PROCEDURE; Start 05/18/16 at 06:00; Stop 05/18/16 at 18:00; Status DC Morphine Sulfate/ Ketorolac Tromethamine/ Ropivacaine/ Epinephrine HCl/ Sodium Chloride (Morphine 5mg Syringe/Toradol/ Naropin 0.5%/ Adrenalin/Iv Sodium Chloride 0.9% 50ml) 100.5 ml @ 100.5 mls/ hr 1X PERIOP ONCE INT ART ; Start at 06:00; Stop 05/18/16 at 06:59; Status Cancel Dexamethasone Sodium Phosphate (Decadron) 20 mg STK-MED ONCE .ROUTE ; Start at 06:57; Stop 05/18/16 at 06:58; Status DC Ondansetron HCl 4 mg 4 mg STK-MED ONCE .ROUTE ; Start 05/18/16 at 06:57; Stop at 06:58; Status DC Propofol (Diprivan) 20 ml @ As Directed STK-MED ONCE IV ; Start 05/18/16 at 06: 57; Stop 05/18/16 at 06:58; Status DC Lidocaine HCl 100 mg STK-MED ONCE .ROUTE ; Start 05/18/16 at 06:57; Stop at 06:58; Status DC Fentanyl Citrate (Fentanyl 5ml Vial) 250 mcg STK-MED ONCE .ROUTE ; Start at 06:57; Stop 05/18/16 at 06:58; Status DC Midazolam HCl (Versed) 2 mg STK-MED ONCE .ROUTE ; Start 05/18/16 at 06:58; Stop 05/18/16 at 06:59; Status DC Rocuronium [place] 50 mg 50 mg STK-MED ONCE .ROUTE ; Start 05/18/16 at 06:58; Stop 05/18/16 at 06:59; Status DC Acetaminophen 100 ml @ As Directed STK-MED ONCE IV ; Start 05/18/16 at 07:13; Stop 05/18/16 at 07:14; Status DC Sodium Chloride 500 ml @ 30 mls/hr [id number] IV Last administered on 05/18/16t 07:45; Start 05/18/16 at 07:45; Stop 05/19/16 at 07:48; Status DC Cefazolin Sodium (Ancef 1gm Ivpb For Omni) 50 ml @ As Directed STK-MED ONCE IV ; Start 05/18/16 at 07:45; Stop 05/18/16 at 07:46; Status DC Fentanyl Citrate (Fentanyl 5ml Vial) 250 mcg STK-MED ONCE .ROUTE ; Start at 08:27; Stop 05/18/16 at 08:28; Status DC Rocuronium [place] (Zemuron) 50 mg STK-MED ONCE .ROUTE ; Start 05/18/16 at 08:27 ; Stop 05/18/16 at 08:28; Status DC Morphine Sulfate 5 mg 5 mg STK-MED ONCE .ROUTE ; Start 05/18/16 at 08:59; Stop 05/18/16 at 09:00; Status DC Cefazolin Sodium (Ancef 1gm Ivpb For Omni) 50 ml @ 100 mls/hr 1X PREOP PRN IV PER PROTOCOL Last administered on 05/18/16t 08:06; Start 05/18/16 at 09:30; Stop 05/19/16 at 09:29; Status DC Lisinopril (Prinivil) 20 mg DAILY PO ; Start 05/18/16 at 11:30 Albuterol Sulfate (Ventolin Neb Soln) 2.5 mg STK-MED ONCE .ROUTE ; Start at 11:24; Stop 05/18/16 at 11:25; Status DC Morphine Sulfate 10 mg STK-MED ONCE .ROUTE ; Start 05/18/16 at 11:55; Stop 05/18 at 11:56; Status DC Cefazolin Sodium/ Dextrose 2 gm 2 gm STK-MED ONCE IV ; Start 05/18/16 at 07:30; Stop 05/18/16 at 12:41; Status DC Cefazolin Sodium (Ancef 1gm Ivpb For Omni) 50 ml @ As Directed STK-MED ONCE IV ; Start 05/18/16 at 13:02; Stop 05/18/16 at 13:03; Status DC Fentanyl Citrate (Fentanyl 5ml Vial) 250 mcg STK-MED ONCE .ROUTE ; Start at 13:27; Stop 05/18/16 at 13:28; Status DC Phenylephrine HCl 1 mg STK-MED ONCE IV ; Start 05/18/16 at 13:58; Stop 05/18/16 at 13:59; Status DC Insulin Human Regular (Novolin R Vial) 10 unit 1X ONCE IV ; Start 05/18/16 at 14:15; Stop 05/18/16 at 14:16; Status DC Acetaminophen/ Hydrocodone Bitart (Lortab 7.5/325) 1 tab PRN Q3HRS PRN PO PAIN ; Start 05/18/16 at 15:45 Acetaminophen/ Hydrocodone Bitart (Lortab 10/325) 1 tab PRN Q3HRS PRN PO PAIN; Start 05/18/16 at 15:45 Tramadol HCl (Ultram) 50 mg PRN QID PRN PO PAIN; Start 05/18/16 at 15:45 Oxycodone/ Acetaminophen (Percocet 5/325) 1 tab PRN Q3HRS PRN PO PAIN; Start at 15:45 Oxycodone/ Acetaminophen (Percocet 7.5/ 325) 1 tab PRN Q3HRS PRN PO PAIN; Start 05/18/16 at 15:45 Tramadol HCl (Ultram) 100 mg PRN Q3HRS PRN PO PAIN; Start 05/18/16 at 15:45 Morphine Sulfate 2 mg PRN Q1HR PRN IV PAIN; Start 05/18/16 at 15:45 Fentanyl Citrate (Fentanyl 2ml Vial) 25 mcg PRN Q1HR PRN IV PAIN; Start at 15:45 Diphenhydramine HCl (Benadryl) 25 mg PRN Q6HRS PRN IV ITCHING Last administered on 05/19/16 09:16; Start 05/18/16 at 15:45 Warfarin Sodium (Coumadin Per Pharmacy) 1 each PRN DAILY PRN MC SEE COMMENTS Last administered on 05/19/16 14:06; Start 05/18/16 at 15:45 Multivitamins/ Calcium (Thera M Plus) 1 tab DAILY PO ; Start 05/19/16 at 09:00 Senna/Docusate Sodium (Senna Plus) 1 tab DAILY PO ; Start 05/19/16 at 09:00 Ferrous Sulfate 325 mg 325 mg BIDWMEALS PO ; Start 05/18/16 at 17:00 Dextrose/Sodium Chloride (Iv D5% - 1/2 NS) 1,000 ml @ 100 mls/hr Q10H IV ; Start 05/18/16 at 15:31; Stop 05/19/16 at 07:48; Status DC Magnesium Hydroxide (Milk Of Magnesia) 2,400 mg 1X PRN PRN PO CONSTIPATION; Start 05/19/16 at 06:00; Stop 05/20/16 at 05:59 Bisacodyl (Dulcolax Supp) 10 mg 1X PRN PRN OK CONSTIPATION; Start 05/19/16 at 16 :00; Stop 05/20/16 at 15:59 Acetaminophen (Tylenol) 650 mg PRN Q4HRS PRN PO MILD PAIN / TEMP; Start at 15:45 Zolpidem Tartrate (Ambien) 5 mg PRN QHS PRN PO INSOMNIA, MAY REPEAT IN 1HR; Start 05/18/16 at 15:45 Calcium Carbonate/ Glycine (Tums) 500 mg PRN QID PRN PO INDIGESTION; Start at 15:45 Morphine Sulfate 4 mg PRN Q1HR PRN IV PAIN; Start 05/18/16 at 15:45 Morphine Sulfate 6 mg PRN Q1HR PRN IV PAIN Last administered on 05/19/16t 13:27 ; Start 05/18/16 at 15:45 Morphine Sulfate 8 mg PRN Q1HR PRN IV PAIN; Start 05/18/16 at 15:45 Sodium Chloride (Normal Saline Flush) 10 ml QSHIFT PRN IV AFTER MEDS AND BLOOD DRAWS; Start 05/18/16 at 15:45 Fentanyl Citrate (Fentanyl 2ml Vial) 50 mcg PRN Q1HR PRN IV PAIN Last administered on 05/19/16t 14:51; Start 05/18/16 at 15:45 Prochlorperazine Edisylate (Compazine) 10 mg PRN Q4HRS PRN IV NAUSEA/VOMITING; Start 05/18/16 at 15:45 Dextrose 12.5 gm 12.5 gm PRN Q15MIN PRN IV SEE COMMENTS; Start 05/18/16 at 15: 45 Cefazolin Sodium/ Sodium Chloride (Ancef/Iv Sodium Chloride 0.9% 50ml) 50 ml @ 100 mls/hr Q6H IV Last administered on 05/19/16t 05:00; Start 05/18/16 at 16:00 ; Stop 05/19/16 at 04:29; Status DC Warfarin Sodium (Coumadin) 5 mg 1X WARF ONCE PO ; Start 05/18/16 at 16:00; Stop 05/18/16 at 16:01; Status DC Lidocaine/Sodium Bicarbonate 20 ml 20 ml STK-MED ONCE IJ ; Start 05/18/16 at 16: 51; Stop 05/18/16 at 16:52; Status DC Heparin Sodium/ Sodium Chloride 500 ml @ As Directed STK-MED ONCE .ROUTE ; Start 05/18/16 at 16:51; Stop 05/18/16 at 16:52; Status DC Heparin Sodium (Porcine) 95506 unit 10,000 unit STK-MED ONCE .ROUTE ; Start at 16:52; Stop 05/18/16 at 16:53; Status DC Sodium Chloride (Iv Sodium Chloride 0.9% 1000ml Bag) 1,000 ml @ 1,000 mls/hr Q1H PRN IV hypotension; Start 05/18/16 at 17:23; Stop 05/18/16 at 23:22; Status DC Diphenhydramine HCl (Benadryl) 75 mg 1X PRN PRN IV ITCHING; Start 05/18/16 at 17:30; Stop 05/19/16 at 17:29 Info (PHARMACY MONITORING -- do not chart) 1 each PRN DAILY PRN MC SEE COMMENTS ; Start 05/18/16 at 17:30 Info (PHARMACY MONITORING -- do not chart) 1 each PRN DAILY PRN MC SEE COMMENTS ; Start 05/18/16 at 17:30; Status UNV Lidocaine/Sodium Bicarbonate (Buffered Lidocaine 1%) 3 ml 1X ONCE IJ Last administered on 05/18/16t 17:34; Start 05/18/16 at 17:30; Stop 05/18/16 at 17:34 ; Status DC Heparin Sodium/ Sodium Chloride 60 unit 1X ONCE IV ; Start 05/18/16 at 17:30; Stop 05/18/16 at 17:34; Status DC Insulin Aspart (Novolog Vial) 10 unit 1X ONCE SQ ; Start 05/18/16 at 18:30; Stop 05/18/16 at 18:31; Status Cancel Insulin Human Regular 10 unit 10 unit 1X ONCE IV ; Start 05/18/16 at 19:00; Stop 05/18/16 at 19:01; Status DC Propofol (Diprivan) 100 ml @ 0 mls/hr CONT PRN IV . Last administered on 02:10; Start 05/18/16 at 19:00 Darbepoetin Jude (Aranesp) 60 mcg WEEKLYHS SQ ; Start 05/19/16 at 21:00 Diphenhydramine HCl (Benadryl) 50 mg 1X ONCE IM Last administered on 05/19/16 13:27; Start 05/19/16 at 13:15; Stop 05/19/16 at 13:16; Status DC Warfarin Sodium (Coumadin - No Dose Today) 1 each 1X WARF ONCE MC ; Start at 16:00; Stop 05/19/16 at 16:01 Active Scripts Active Zofran Odt (Ondansetron) 4 Mg Tab.rapdis 1 Tab SL Q8HRS PRN Reported Percocet 7.5-325 Mg Tablet (Oxycodone/Acetaminophen) 1 Each Tablet 1 Tab PO PRN Q8HRS PRN Xanax (Alprazolam) 0.25 Mg Tablet 2 Mg PO TID PRN Metoprolol Succinate ( Xl ) (Metoprolol Succinate) 200 Mg Tab.er.24h 1 Tab PO DAILY Hydralazine Hcl 50 Mg Tablet 1 Tab PO TID Amlodipine Besylate 10 Mg Tablet 1 Tab PO DAILY Vitals/I & O Vital Sign - Last 24 Hours 05/18/16 05/18/16 05/18/16 05/18/16 15:07 15:07 15:21 15:36 Temp 98.8 98.8 98.8 98.8 98.8 98.8 Pulse 107 108 111 Resp 16 20 20 B/P 118/79 128/91 156/103 Pulse Ox 100 100 100 O2 Delivery Simple Mask Mask Simple Mask Simple Mask O2 Flow Rate 6 6 6 6 05/18/16 05/18/16 05/18/16 05/18/16 15:51 16:06 16:21 16:36 Temp 98.8 98.8 98.8 99.4 98.8 98.8 98.8 99.4 Pulse 110 110 110 106 Resp 19 18 20 20 B/P 165/80 165/80 179/51 183/31 Pulse Ox 100 100 100 100 O2 Delivery Simple Mask Simple Mask Simple Mask Nasal Cannula O2 Flow Rate 6 6 6 2 05/18/16 05/18/16 05/18/16 05/18/16 16:42 16:50 16:51 16:53 Temp 99.4 99.4 Pulse 106 Resp 20 20 20 B/P 178/36 Pulse Ox 100 100 100 O2 Delivery Nasal Cannula Nasal Cannula Nasal Cannula Nasal Cannula O2 Flow Rate 2.0 2.0 2.0 2.0 05/18/16 05/18/16 05/18/16 05/18/16 17:20 17:20 17:40 17:45 Temp 97.8 97.8 Pulse 104 107 Resp 03 17 20 B/P 106/68 99/65 Pulse Ox 100 100 100 O2 Delivery Nasal Cannula Nasal Cannula Nasal Cannula O2 Flow Rate 2.0 2.0 2.0 2.0 05/18/16 05/18/16 05/18/16 05/18/16 17:45 18:42 19:00 19:55 Pulse 97 Resp 20 B/P 176/83 Pulse Ox 100 100 100 O2 Delivery Nasal Cannula Ventilator Ventilator Ventilator O2 Flow Rate 2.0 05/18/16 05/18/16 05/18/16 05/18/16 20:00 20:00 21:00 21:03 Temp 97.4 97.7 97.4 97.4 97.7 97.4 Pulse 89 100 100 Resp 20 16 16 B/P 151/83 156/77 151/83 Pulse Ox 100 100 O2 Delivery Mechanical Ventilator Ventilator Ventilator 05/18/16 05/18/16 05/18/16 05/18/16 21:05 21:15 22:00 22:03 Temp 97.7 97.9 97.9 97.7 97.9 97.9 Pulse 98 97 109 Resp 16 16 16 B/P 156/81 160/82 160/82 Pulse Ox 99 100 O2 Delivery Ventilator Ventilator 2/05/18/16 05/18/16 05/18/16 23:00 23:05 23:32 23:52 Temp 97.7 97.7 97.4 97.7 97.7 97.4 Pulse 97 97 100 Resp 16 16 16 B/P 161/89 161/89 151/83 Pulse Ox 100 100 O2 Delivery Ventilator Ventilator 05/18/16 05/19/16 05/19/16 05/19/16 23:59 00:00 00:05 00:46 Temp 97.8 97.8 97.8 97.8 Pulse 95 96 Resp 16 16 B/P 168/72 168/72 Pulse Ox 100 100 O2 Delivery Mechanical Ventilator Ventilator Ventilator 05/19/16 05/19/16 05/19/16 05/19/16 00:52 00:52 01:00 01:52 Temp 97.5 97.5 97.5 97.8 97.5 97.5 97.5 97.8 Pulse 94 94 94 92 Resp 16 16 16 16 B/P 151/64 151/64 151/64 158/54 Pulse Ox 100 O2 Delivery Ventilator 05/19/16 05/19/16 05/19/16 05/19/16 02:00 03:00 03:18 04:00 Temp 97.6 97.6 Pulse 92 90 Resp 16 16 B/P 158/54 160/75 Pulse Ox 100 100 100 O2 Delivery Ventilator Ventilator Ventilator Mechanical Ventilator 05/19/16 05/19/16 05/19/16 05/19/16 04:00 05:00 05:10 06:00 Pulse 93 91 91 Resp 16 16 16 B/P 162/72 151/69 150/68 Pulse Ox 96 98 100 98 O2 Delivery Ventilator Ventilator Ventilator Ventilator 05/19/16 05/19/16 05/19/16 05/19/16 07:00 08:00 08:00 08:19 Temp 97.7 97.7 Pulse 88 93 Resp 24 17 B/P 174/84 158/78 Pulse Ox 97 96 99 O2 Delivery Ventilator Ventilator Mechanical Ventilator Ventilator 05/19/16 05/19/16 05/19/16 05/19/16 08:39 09:00 09:17 10:00 Pulse 93 100 Resp 14 16 35 B/P 164/75 196/88 Pulse Ox 99 94 100 100 O2 Delivery Ventilator Ventilator Ventilator Nasal Cannula O2 Flow Rate 2.0 05/19/16 05/19/16 05/19/16 05/19/16 10:04 11:00 11:02 12:00 Temp 98.6 98.6 Pulse 105 104 Resp 36 11 25 B/P 174/67 180/75 Pulse Ox 97 100 95 O2 Delivery Nasal Cannula Room Air Nasal Cannula Nasal Cannula O2 Flow Rate 5.0 2.0 2.0 05/19/16 05/19/16 05/19/16 05/19/16 12:00 12:22 12:55 12:59 Pulse 102 Resp 25 38 B/P 207/100 Pulse Ox 95 99 O2 Delivery Nasal Cannula Nasal Cannula Nasal Cannula O2 Flow Rate 2.0 2.0 2.0 05/19/16 05/19/16 05/19/16 05/19/16 13:00 13:27 14:00 14:42 Pulse 106 104 Resp 22 21 30 30 B/P 207/100 134/66 Pulse Ox 96 96 97 97 O2 Delivery Nasal Cannula Nasal Cannula Nasal Cannula Nasal Cannula O2 Flow Rate 2.0 2.0 2.0 2.0 05/19/16 05/19/16 14:51 15:00 Pulse 109 Resp 22 13 B/P 208/99 Pulse Ox 97 96 O2 Delivery Nasal Cannula Nasal Cannula O2 Flow Rate 2.0 2.0 Intake and Output 05/18/16 05/18/16 05/19/16 15:00 23:00 07:00 Intake Total 1160 ml 1420 ml Output Total 2850 ml Balance -1690 ml 1420 ml KINGSLEY EVERETT III DO May 19, 2016 15:19
[2016-05-19] MEDS ORDERED: BISACODYL 10 MG SUPP.RECT PR PRN (16:00)
[2016-05-19] MEDS: hydrALAZINE 20 MG/ML VIAL. IVP PRN ×2 (16:19→23:57)
--- NOTE | 2016-05-19 17:10 | PDOC ---
ORTHO PROGRESS NOTES Subjective Verito was awake and responsive despite being on the ventilator this morning and was able to communicate by writing several different questions. I did describe the events of last night to her and that I was actually coming to check on her in between surgeries when the code was called and was present until Dr. Ji had completed the treatment. I described the difficult nature of her hip surgery and the fact that we would have her up with some limited weightbearing initially when she is more medically able Post-op Day: 1 Procedure Complicated right total hip arthroplasty Vitals Vital Signs Date Time Temp Pulse Resp B/P Pulse Ox O2 Delivery O2 Flow Rate FiO2 05/19/16 16:58 30 96 Nasal Cannula 2.0 05/19/16 16:19 107 203/108 05/19/16 16:00 98.7 98.7 Labs Laboratory Tests Test 05/17/16 18:15 05/18/16 10:00 05/18/16 12:45 05/18/16 14:45 Sodium Level 141mmol/L (136-145) 136mmol/L (136-145) Potassium Level 3.9mmol/L (3.5-5.1) 7.8mmol/L (3.5-5.1) 7.2mmol/L (3.5-5.1) Chloride Level 99mmol/L (98-107) 98mmol/L (98-107) Carbon Dioxide Level 29mmol/L (21-32) 23mmol/L (21-32) Anion Gap 13 (6-14) 15 (6-14) White Blood Count 11.5x10^3/uL (4.0-11.0) 21.0x10^3/uL (4.0-11.0) 14.8x10^3/uL (4.0-11.0) Hemoglobin 8.8g/dL (12.0-15.5) 11.3g/dL (12.0-15.5) 8.2g/dL (12.0-15.5) Hematocrit 26.6% (36.0-47.0) 34.2% (36.0-47.0) 25.0% (36.0-47.0) Platelet Count 223x10^3/uL (140-400) 187x10^3/uL (140-400) 103x10^3/uL (140-400) Erythrocyte Sedimentation Rate 12 (0-25) Red Blood Count 3.58x10^6/uL (3.50-5.40) Mean Corpuscular Volume 95fL (79-100) Mean Corpuscular Hemoglobin 32pg (25-35) Mean Corpuscular Hemoglobin Concent 33g/dL (31-37) Red Cell Distribution Width 18.1% (11.5-14.5) Neutrophils (%) (Auto) 94% (31-73) Lymphocytes (%) (Auto) 4% (24-48) Monocytes (%) (Auto) 1% (0-9) Eosinophils (%) (Auto) 0% (0-3) Basophils (%) (Auto) 1% (0-3) Neutrophils # (Auto) 19.7x10^3uL (1.8-7.7) Lymphocytes # (Auto) 0.9x10^3/uL (1.0-4.8) Monocytes # (Auto) 0.2x10^3/uL (0.0-1.1) Eosinophils # (Auto) 0.1x10^3/uL (0.0-0.7) Basophils # (Auto) 0.1x10^3/uL (0.0-0.2) Blood Urea Nitrogen 34mg/dL (7-20) Creatinine 4.5mg/dL (0.6-1.0) Estimated GFR (Cockcroft-Gault) 11.8 BUN/Creatinine Ratio 8 (6-20) Glucose Level 231mg/dL (70-99) Calcium Level 8.5mg/dL (8.5-10.1) Total Bilirubin 1.1mg/dL (0.2-1.0) Aspartate Amino Transf (AST/SGOT) 18U/L (15-37) Alanine Aminotransferase (ALT/SGPT) 17U/L (14-59) Alkaline Phosphatase 610U/L (46-116) Total Protein 6.2g/dL (6.4-8.2) Albumin 3.1g/dL (3.4-5.0) Albumin/Globulin Ratio 1.0 (1.0-1.7) Test 05/18/16 16:25 05/18/16 18:40 05/18/16 19:55 05/19/16 07:20 Glucose (Fingerstick) 267mg/dL (70-99) White Blood Count 14.4x10^3/uL (4.0-11.0) Red Blood Count 1.65x10^6/uL (3.50-5.40) Hemoglobin 5.1g/dL (12.0-15.5) 8.2g/dL (12.0-15.5) Hematocrit 15.8% (36.0-47.0) Mean Corpuscular Volume 96fL (79-100) Mean Corpuscular Hemoglobin 31pg (25-35) Mean Corpuscular Hemoglobin Concent 33g/dL (31-37) Red Cell Distribution Width 18.7% (11.5-14.5) Platelet Count 78x10^3/uL (140-400) Neutrophils (%) (Auto) 92% (31-73) Lymphocytes (%) (Auto) 5% (24-48) Monocytes (%) (Auto) 2% (0-9) Eosinophils (%) (Auto) 0% (0-3) Basophils (%) (Auto) 0% (0-3) Neutrophils # (Auto) 13.3x10^3uL (1.8-7.7) Lymphocytes # (Auto) 0.8x10^3/uL (1.0-4.8) Monocytes # (Auto) 0.3x10^3/uL (0.0-1.1) Eosinophils # (Auto) 0.0x10^3/uL (0.0-0.7) Basophils # (Auto) 0.0x10^3/uL (0.0-0.2) Prothrombin Time 31.3SEC (11.7-14.0) Prothromb Time International Ratio 3.2 (0.8-1.1) Activated Partial Thromboplast Time 43SEC (24-38) Sodium Level 141mmol/L (136-145) 143mmol/L (136-145) Potassium Level 4.3mmol/L (3.5-5.1) 5.0mmol/L (3.5-5.1) Chloride Level 100mmol/L (98-107) 104mmol/L (98-107) Carbon Dioxide Level 22mmol/L (21-32) 26mmol/L (21-32) Anion Gap 19 (6-14) 13 (6-14) Blood Urea Nitrogen 33mg/dL (7-20) 44mg/dL (7-20) Creatinine 4.2mg/dL (0.6-1.0) 4.7mg/dL (0.6-1.0) Estimated GFR (Cockcroft-Gault) 12.8 11.2 BUN/Creatinine Ratio 8 (6-20) Glucose Level 377mg/dL (70-99) 81mg/dL (70-99) Calcium Level 7.0mg/dL (8.5-10.1) 8.7mg/dL (8.5-10.1) Total Bilirubin 0.7mg/dL (0.2-1.0) Aspartate Amino Transf (AST/SGOT) 735U/L (15-37) Alanine Aminotransferase (ALT/SGPT) 566U/L (14-59) Alkaline Phosphatase 396U/L (46-116) Total Protein 3.8g/dL (6.4-8.2) Albumin 1.9g/dL (3.4-5.0) Albumin/Globulin Ratio 1.0 (1.0-1.7) O2 Saturation 99% (92-99) Arterial Blood pH 7.47 (7.35-7.45) Arterial Blood pCO2 at Patient Temp 30mmHg (35-46) Arterial Blood pO2 at Patient Temp 317mmHg (85-108) Arterial Blood HCO3 21mmol/L (21-28) Arterial Blood Base Excess -2mmol/L (-3-3) FiO2 70 Phosphorus Level 6.4mg/dL (2.6-4.7) Magnesium Level 1.9mg/dL (1.8-2.4) Test 05/19/16 08:45 O2 Saturation 94% (92-99) Arterial Blood pH 7.49 (7.35-7.45) Arterial Blood pCO2 at Patient Temp 32mmHg (35-46) Arterial Blood pO2 at Patient Temp 73mmHg (85-108) Arterial Blood HCO3 24mmol/L (21-28) Arterial Blood Base Excess 1mmol/L (-3-3) FiO2 40 Laboratory Tests Test 05/18/16 18:40 05/18/16 19:55 05/19/16 07:20 3/1/17 08:45 White Blood Count 14.4x10^3/uL (4.0-11.0) Red Blood Count 1.65x10^6/uL (3.50-5.40) Hemoglobin 5.1g/dL (12.0-15.5) 8.2g/dL (12.0-15.5) Hematocrit 15.8% (36.0-47.0) Mean Corpuscular Volume 96fL (79-100) Mean Corpuscular Hemoglobin 31pg (25-35) Mean Corpuscular Hemoglobin Concent 33g/dL (31-37) Red Cell Distribution Width 18.7% (11.5-14.5) Platelet Count 78x10^3/uL (140-400) Neutrophils (%) (Auto) 92% (31-73) Lymphocytes (%) (Auto) 5% (24-48) Monocytes (%) (Auto) 2% (0-9) Eosinophils (%) (Auto) 0% (0-3) Basophils (%) (Auto) 0% (0-3) Neutrophils # (Auto) 13.3x10^3uL (1.8-7.7) Lymphocytes # (Auto) 0.8x10^3/uL (1.0-4.8) Monocytes # (Auto) 0.3x10^3/uL (0.0-1.1) Eosinophils # (Auto) 0.0x10^3/uL (0.0-0.7) Basophils # (Auto) 0.0x10^3/uL (0.0-0.2) Prothrombin Time 31.3SEC (11.7-14.0) Prothromb Time International Ratio 3.2 (0.8-1.1) Activated Partial Thromboplast Time 43SEC (24-38) Sodium Level 141mmol/L (136-145) 143mmol/L (136-145) Potassium Level 4.3mmol/L (3.5-5.1) 5.0mmol/L (3.5-5.1) Chloride Level 100mmol/L (98-107) 104mmol/L (98-107) Carbon Dioxide Level 22mmol/L (21-32) 26mmol/L (21-32) Anion Gap 19 (6-14) 13 (6-14) Blood Urea Nitrogen 33mg/dL (7-20) 44mg/dL (7-20) Creatinine 4.2mg/dL (0.6-1.0) 4.7mg/dL (0.6-1.0) Estimated GFR (Cockcroft-Gault) 12.8 11.2 BUN/Creatinine Ratio 8 (6-20) Glucose Level 377mg/dL (70-99) 81mg/dL (70-99) Calcium Level 7.0mg/dL (8.5-10.1) 8.7mg/dL (8.5-10.1) Total Bilirubin 0.7mg/dL (0.2-1.0) Aspartate Amino Transf (AST/SGOT) 735U/L (15-37) Alanine Aminotransferase (ALT/SGPT) 566U/L (14-59) Alkaline Phosphatase 396U/L (46-116) Total Protein 3.8g/dL (6.4-8.2) Albumin 1.9g/dL (3.4-5.0) Albumin/Globulin Ratio 1.0 (1.0-1.7) O2 Saturation 99% (92-99) 94% (92-99) Arterial Blood pH 7.47 (7.35-7.45) 7.49 (7.35-7.45) Arterial Blood pCO2 at Patient Temp 30mmHg (35-46) 32mmHg (35-46) Arterial Blood pO2 at Patient Temp 317mmHg (85-108) 73mmHg (85-108) Arterial Blood HCO3 21mmol/L (21-28) 24mmol/L (21-28) Arterial Blood Base Excess -2mmol/L (-3-3) 1mmol/L (-3-3) FiO2 70 40 Phosphorus Level 6.4mg/dL (2.6-4.7) Magnesium Level 1.9mg/dL (1.8-2.4) X-Rays Postop x-rays show excellent placement of a total hip arthroplasty with equal leg lengths good fixation and placement Notes Wean off the ventilator as she is medically able start physical therapy with limited weightbearing but no total hip precautions ZHOU BROOKS MD May 19, 2016 17:10
[2016-05-19] MEDS ORDERED: LISINOPRIL 20 MG TABLET PO ONE (17:30)
[2016-05-19] MEDS ORDERED: METOPROLOL SUCC 24HR ER 100 MG TAB.ER.24H. PO ONE (17:30)
[2016-05-19] MEDS ORDERED: AMLODIPINE BESYLATE 10 MG TABLET PO ONE (17:30)
[2016-05-19] MEDS: DARBEPOETIN ALFA 60 MCG/0.3 ML DISP.SYRIN. SQ SCH (21:00)
[2016-05-20] VITALS (12 sets, daily range): BP systolic 137–226; BP diastolic 45–105
[2016-05-20] MEDS: MORPHINE SULFATE 10 MG/ML VIAL. IV PRN ×3 (01:29→20:04)
[2016-05-20] MEDS: DIPHENHYDRAMINE 50 MG/ML VIAL IV PRN ×4 (01:30→20:04)
[2016-05-20] MEDS: FENTANYL PF 100 MCG/2 ML VIAL. IV PRN ×7 (03:01→21:37)
[2016-05-20] MEDS: LABETALOL 20 MG/4 ML DISP.SYRIN. IVP PRN (04:29)
[2016-05-20 04:30] LABS: HEMATOCRIT 22.9 % (36.0-47.0); HEMOGLOBIN 7.7 g/dL (12.0-15.5); RED BLOOD COUNT 2.54 x10^6/uL (3.50-5.40); RED CELL DISTRIBUTION WIDTH 16.4 % (11.5-14.5); WHITE BLOOD COUNT 12.7 x10^3/uL (4.0-11.0)
[2016-05-20 04:40] LABS: INR 1.4 (0.8-1.1); PROTHROMBIN TIME PATIENT 16.7 SEC (11.7-14.0)
[2016-05-20] MEDS: LORAZEPAM 2 MG/ML VIAL IV PRN ×3 (05:58→22:27)
[2016-05-20 06:49] LABS: CALCIUM 8.4 mg/dL (8.5-10.1); CREATININE 5.8 mg/dL (0.6-1.0); GFR 8.8
[2016-05-20] MEDS: MORPHINE SULFATE 4 MG/ML DISP.SYRIN. IV PRN ×5 (07:48→22:34)
[2016-05-20] MEDS: FERROUS SULFATE 325 MG TABLET PO SCH ×2 (08:00→16:26)
[2016-05-20] MEDS ORDERED: LIDOCAINE 1% PF 2 ML VIAL. ONE ×2 (08:00→08:19)
--- NOTE | 2016-05-20 08:51 | RAD ---
Exam performed: One view chest. History: Respiratory failure. Date of service: 05/20/16. Comparison: 05/19/16. Single AP semiupright portable view chest findings: Stable mild cardiomegaly and central vascular congestion. Development of a course prominent interstitial markings in both lungs mainly in a perihilar region. Streaky linear opacities in both lung bases likely atelectasis. There is interval extubation. Impression: 1. Cardiomegaly with central vascular congestion and development of coarse interstitial markings in both lungs. Early interstitial edema suspected. 2. Bibasal atelectasis.
[2016-05-20] MEDS: MULTIVITAMIN with MINERAL TABLET. PO SCH (09:00)
[2016-05-20] MEDS: SENNOSIDES/DOCUSATE 8.6/50MG TABLET. PO SCH (09:00)
[2016-05-20] MEDS: POLYETHYLENE GLYCOL 3350 17 GM PACKET. PO SCH ×2 (09:00→21:34)
[2016-05-20] MEDS: HYDRALAZINE 50 MG TABLET PO SCH ×3 (09:23→21:38)
[2016-05-20] MEDS: LISINOPRIL 20 MG TABLET PO SCH (09:23)
[2016-05-20] MEDS: AMLODIPINE BESYLATE 10 MG TABLET PO SCH (09:23)
[2016-05-20] MEDS: METOPROLOL SUCC 24HR ER 100 MG TAB.ER.24H. PO SCH (09:23)
[2016-05-20] MEDS ORDERED: IV NORMAL SALINE 1000ML BAG 1,000 ML IV PRN (09:24)
[2016-05-20] MEDS ORDERED: 0.9 % SODIUM CHLORIDE 10 ML DISP.SYRIN. IV PRN ×2 (09:30)
[2016-05-20] MEDS ORDERED: DIALYSIS PATIENT. MC PRN ×2 (09:30)
[2016-05-20] MEDS ORDERED: DIPHENHYDRAMINE 50 MG/ML VIAL IV PRN ×2 (09:30)
--- NOTE | 2016-05-20 09:35 | CONS ---
DATE OF CONSULTATION: 05/19/2016 ATTENDING PHYSICIAN: Dr. Torrez REASON FOR CONSULTATION: The patient is seen in pulmonary consultation at the request of Dr. Torrez for vent management, status post code blue. The patient was seen post-code marcos. HISTORY OF PRESENT ILLNESS: Apparently, she became unresponsive doing hemodialysis. Yoli rodríguez was called. The patient was intubated by Dr. Ji. Initially, she stopped breathing and had no pulse. Apparently, she had a rhythm. After being bagged, pulses were checked and found pulses. She was in sinus tachycardia with a pressure of systolic 100. She was intubated. I was asked to manage her care. Upon my evaluation last evening, the patient was actually responsive despite IV sedation. She basically had a right hip [place] status post hardware removal and infection of the femoral neck fracture. She underwent removal of hardware, antibiotic cement and complicated with total hip arthroplasty. Intraoperatively, she was given some blood products. PAST MEDICAL HISTORY: Endstage renal disease on hemodialysis, AV shunt, multiple dialysis catheter, left femoral infection, hypertension renal, and history of seizures. ALLERGIES: SULFA AND HALDOL. FAMILY HISTORY: Diabetes. SOCIAL HISTORY: No history of tobacco or drug use. REVIEW OF SYSTEMS: Unobtainable secondary to the patient's condition. PHYSICAL EXAMINATION: GENERAL: The patient was in the Intensive Care Unit on mechanical ventilation. She was sedated with Diprivan, but still was arousable and moved all extremities. VITAL SIGNS: Noted. HEENT: Eyes, the sclerae were nonicteric. NECK: Jugular venous distention was not elevated. No lymphadenopathy. CHEST: Full expansion. LUNGS: Adequate airway flow, no wheezes. CARDIOVASCULAR: Regular rate and rhythm with S1, S2, no S3. ABDOMEN: Soft, nontender, and nondistended. EXTREMITIES: No clubbing, cyanosis or pitting edema. NEUROLOGIC: The patient was sedated. LABORATORY DATA: Reviewed. Hemoglobin was low, dropped from 8.2 to 5.1. Arterial blood gas; pH of 7.47, pCO2 of 30, pO2 of 317, and bicarbonate was 21. INR was elevated. Chemistries were deranged. Albumin was low. DIAGNOSTIC DATA: Chest x-ray was reviewed, some linear atelectasis in the left upper lobe, otherwise ET tube was properly positioned. IMPRESSION: 1. Acute respiratory failure, status post code blue. 2. Status post code blue, initially the patient had pulseless electrical activity. 3. Pulseless electrical activity suspect acidosis versus hypovolemia versus hyperkalemia. 4. Endstage renal disease. 5. Status post surgical intervention for infected hip, removal of hardware with total arthroplasty. 6. Seizures. 7. Hypertension. PLAN: 1. We will continue current mechanical support adjustment, ____ ventilation to normalize pH. 2. Monitor hemoglobin and hematocrit q.6 hours. 2. Transfuse to maintain hemoglobin above 7. 3. Possible extubation in the a.m. 4. Antibiotics per Dr. Feldman. 5. Monitor INR. I do appreciate the privilege in sharing in the patient's care. Total cumulative critical care time of 40 minutes. ISIS WHEAT MD DR: KRISTEN/phuc JOB#: [id number] / [id number]
--- NOTE | 2016-05-20 10:53 | PDOC ---
Renal-Progress Notes Subjective Notes Notes BETTER History of Present Illness Hx of present illness BETTER Vitals Vitals Vital Signs Date Time Temp Pulse Resp B/P Pulse Ox O2 Delivery O2 Flow Rate FiO2 05/20/16 10:50 100 Nasal Cannula 05/20/16 09:24 20 05/20/16 09:23 105 212/89 05/20/16 08:00 2.0 05/20/16 04:00 99.1 99.1 Weight Weight [ ] I.O. Intake and Output Intake and Output 05/20/16 07:00 Intake Total 840 ml Balance 840 ml Intake Oral 840 ml Labs Labs Laboratory Tests Test 05/20/16 04:10 05/20/16 04:40 White Blood Count 12.7x10^3/uL (4.0-11.0) Red Blood Count 2.54x10^6/uL (3.50-5.40) Hemoglobin 7.7g/dL (12.0-15.5) Hematocrit 22.9% (36.0-47.0) Mean Corpuscular Volume 90fL (79-100) Mean Corpuscular Hemoglobin 30pg (25-35) Mean Corpuscular Hemoglobin Concent 34g/dL (31-37) Red Cell Distribution Width 16.4% (11.5-14.5) Platelet Count 116x10^3/uL (140-400) Prothrombin Time 16.7SEC (11.7-14.0) Prothromb Time International Ratio 1.4 (0.8-1.1) Sodium Level 138mmol/L (136-145) Potassium Level 5.0mmol/L (3.5-5.1) Chloride Level 100mmol/L (98-107) Carbon Dioxide Level 25mmol/L (21-32) Anion Gap 13 (6-14) Blood Urea Nitrogen 51mg/dL (7-20) Creatinine 5.8mg/dL (0.6-1.0) Estimated GFR (Cockcroft-Gault) 8.8 Glucose Level 131mg/dL (70-99) Calcium Level 8.4mg/dL (8.5-10.1) Review of Systems Constitutional: yes: alert, oriented, weakness Ears/Nose/Throat: Yes: no symptom reported Eyes: Yes: no symptom reported Cardiovascular: Yes no symptom reported Gastrointestional: Yes: no symptom reported Skin: Yes no symptom reported Physical Exam General Appearance: no apparent distress Skin: warm Respiratory: bilateral CTA Heart: S1S2 Abdomen: soft, bowel sounds present Genitourinary: bladder flat Extremities: pulses present Neurology: alert Musculoskeletal: Weakness Assessment Assessment IMP S/P HIP ARTHROPLASTY ANEMIA ESRD HTN RESP FAILURE HYPERKALEMIA-BETTER THROMBOSED LEFT ARM GRAFT PLAN HD TODAY UF TO DW WILL HAVE IR DO LEFT ARM GRAFT THROMBECTOMY HAVE D/W IR RUSLAN TEMPLE MD May 20, 2016 10:52
--- NOTE | 2016-05-20 15:24 | PDOC ---
PULMONARY PROGRESS NOTES Subjective no resp distress Vitals Vital Signs Date Time Temp Pulse Resp B/P Pulse Ox O2 Delivery O2 Flow Rate FiO2 05/20/16 14:21 91 191/81 05/20/16 13:36 98 Nasal Cannula 2.0 05/20/16 12:00 97.8 25 97.8 ROS: No Nausea, No Abdominal Pain, No Increase Cough General: Alert Lungs: Clear, Other (painful over R ribs, following last night's code/CPR) Cardiovascular: S1, S2 Abdomen: Soft, Non-tender Neuro Exam: Alert Extremities: No Edema Skin: Warm Labs Laboratory Tests Test 05/18/16 16:25 05/18/16 18:40 05/18/16 19:55 05/19/16 07:20 Glucose (Fingerstick) 267mg/dL (70-99) White Blood Count 14.4x10^3/uL (4.0-11.0) Red Blood Count 1.65x10^6/uL (3.50-5.40) Hemoglobin 5.1g/dL (12.0-15.5) 8.2g/dL (12.0-15.5) Hematocrit 15.8% (36.0-47.0) Mean Corpuscular Volume 96fL (79-100) Mean Corpuscular Hemoglobin 31pg (25-35) Mean Corpuscular Hemoglobin Concent 33g/dL (31-37) Red Cell Distribution Width 18.7% (11.5-14.5) Platelet Count 78x10^3/uL (140-400) Neutrophils (%) (Auto) 92% (31-73) Lymphocytes (%) (Auto) 5% (24-48) Monocytes (%) (Auto) 2% (0-9) Eosinophils (%) (Auto) 0% (0-3) Basophils (%) (Auto) 0% (0-3) Neutrophils # (Auto) 13.3x10^3uL (1.8-7.7) Lymphocytes # (Auto) 0.8x10^3/uL (1.0-4.8) Monocytes # (Auto) 0.3x10^3/uL (0.0-1.1) Eosinophils # (Auto) 0.0x10^3/uL (0.0-0.7) Basophils # (Auto) 0.0x10^3/uL (0.0-0.2) Prothrombin Time 31.3SEC (11.7-14.0) Prothromb Time International Ratio 3.2 (0.8-1.1) Activated Partial Thromboplast Time 43SEC (24-38) Sodium Level 141mmol/L (136-145) 143mmol/L (136-145) Potassium Level 4.3mmol/L (3.5-5.1) 5.0mmol/L (3.5-5.1) Chloride Level 100mmol/L (98-107) 104mmol/L (98-107) Carbon Dioxide Level 22mmol/L (21-32) 26mmol/L (21-32) Anion Gap 19 (6-14) 13 (6-14) Blood Urea Nitrogen 33mg/dL (7-20) 44mg/dL (7-20) Creatinine 4.2mg/dL (0.6-1.0) 4.7mg/dL (0.6-1.0) Estimated GFR (Cockcroft-Gault) 12.8 11.2 BUN/Creatinine Ratio 8 (6-20) Glucose Level 377mg/dL (70-99) 81mg/dL (70-99) Calcium Level 7.0mg/dL (8.5-10.1) 8.7mg/dL (8.5-10.1) Total Bilirubin 0.7mg/dL (0.2-1.0) Aspartate Amino Transf (AST/SGOT) 735U/L (15-37) Alanine Aminotransferase (ALT/SGPT) 566U/L (14-59) Alkaline Phosphatase 396U/L (46-116) Total Protein 3.8g/dL (6.4-8.2) Albumin 1.9g/dL (3.4-5.0) Albumin/Globulin Ratio 1.0 (1.0-1.7) O2 Saturation 99% (92-99) Arterial Blood pH 7.47 (7.35-7.45) Arterial Blood pCO2 at Patient Temp 30mmHg (35-46) Arterial Blood pO2 at Patient Temp 317mmHg (85-108) Arterial Blood HCO3 21mmol/L (21-28) Arterial Blood Base Excess -2mmol/L (-3-3) FiO2 70 Phosphorus Level 6.4mg/dL (2.6-4.7) Magnesium Level 1.9mg/dL (1.8-2.4) Test 05/19/16 08:45 05/20/16 04:10 05/20/16 04:40 O2 Saturation 94% (92-99) Arterial Blood pH 7.49 (7.35-7.45) Arterial Blood pCO2 at Patient Temp 32mmHg (35-46) Arterial Blood pO2 at Patient Temp 73mmHg (85-108) Arterial Blood HCO3 24mmol/L (21-28) Arterial Blood Base Excess 1mmol/L (-3-3) FiO2 40 White Blood Count 12.7x10^3/uL (4.0-11.0) Red Blood Count 2.54x10^6/uL (3.50-5.40) Hemoglobin 7.7g/dL (12.0-15.5) Hematocrit 22.9% (36.0-47.0) Mean Corpuscular Volume 90fL (79-100) Mean Corpuscular Hemoglobin 30pg (25-35) Mean Corpuscular Hemoglobin Concent 34g/dL (31-37) Red Cell Distribution Width 16.4% (11.5-14.5) Platelet Count 116x10^3/uL (140-400) Prothrombin Time 16.7SEC (11.7-14.0) Prothromb Time International Ratio 1.4 (0.8-1.1) Sodium Level 138mmol/L (136-145) Potassium Level 5.0mmol/L (3.5-5.1) Chloride Level 100mmol/L (98-107) Carbon Dioxide Level 25mmol/L (21-32) Anion Gap 13 (6-14) Blood Urea Nitrogen 51mg/dL (7-20) Creatinine 5.8mg/dL (0.6-1.0) Estimated GFR (Cockcroft-Gault) 8.8 Glucose Level 131mg/dL (70-99) Calcium Level 8.4mg/dL (8.5-10.1) Laboratory Tests Test 05/20/16 04:10 05/20/16 04:40 White Blood Count 12.7x10^3/uL (4.0-11.0) Red Blood Count 2.54x10^6/uL (3.50-5.40) Hemoglobin 7.7g/dL (12.0-15.5) Hematocrit 22.9% (36.0-47.0) Mean Corpuscular Volume 90fL (79-100) Mean Corpuscular Hemoglobin 30pg (25-35) Mean Corpuscular Hemoglobin Concent 34g/dL (31-37) Red Cell Distribution Width 16.4% (11.5-14.5) Platelet Count 116x10^3/uL (140-400) Prothrombin Time 16.7SEC (11.7-14.0) Prothromb Time International Ratio 1.4 (0.8-1.1) Sodium Level 138mmol/L (136-145) Potassium Level 5.0mmol/L (3.5-5.1) Chloride Level 100mmol/L (98-107) Carbon Dioxide Level 25mmol/L (21-32) Anion Gap 13 (6-14) Blood Urea Nitrogen 51mg/dL (7-20) Creatinine 5.8mg/dL (0.6-1.0) Estimated GFR (Cockcroft-Gault) 8.8 Glucose Level 131mg/dL (70-99) Calcium Level 8.4mg/dL (8.5-10.1) Medications Active Scripts Medications Dose Route/Sig Days Date Category Zofran Odt (Ondansetron) 4 Mg Tab.rapdis 1 Tab SL Q8HRS PRN 10/28/15 Rx Percocet 7.5-325 Mg Tablet (Oxycodone/Acetaminophen) 1 Each Tablet 1 Tab PO PRN Q8HRS PRN 08/30/14 Reported Xanax (Alprazolam) 0.25 Mg Tablet 2 Mg PO TID PRN 11/10/13 Reported Metoprolol Succinate ( Xl ) (Metoprolol Succinate) 200 Mg Tab.er.24h 1 Tab PO DAILY 11/10/13 Reported Hydralazine Hcl 50 Mg Tablet 1 Tab PO TID 11/10/13 Reported Amlodipine Besylate 10 Mg Tablet 1 Tab PO DAILY 11/10/13 Reported Impression . ACUTE RESP FAILURE SEC TO PEA PEA SUSPECT ACIDOSIS VS HYPOVOLEMIA/HYPERKALEMIA ESRD S/P HIP REPAIR Plan . pt overnight hemodynamically stable, no resp complaints labs reviewed extubated 05/19 will s/o call if needed spoke with RT and RN ISIS WHEAT MD May 20, 2016 15:24
--- NOTE | 2016-05-20 15:41 | PDOC ---
ORTHO PROGRESS NOTES Subjective Patient seems a little flat today, sad. Pain medication helping a little. Transfers painful, hasn't been oob. just got transferred from ICU today. chest hurts from chest compressions during code. Post-op Day: 2 (Right SULAIMAN) Vitals Vital Signs Date Time Temp Pulse Resp B/P Pulse Ox O2 Delivery O2 Flow Rate FiO2 05/20/16 15:33 98 Nasal Cannula 05/20/16 14:21 91 191/81 05/20/16 13:36 2.0 05/20/16 12:00 97.8 25 97.8 Labs Laboratory Tests Test 05/18/16 16:25 05/18/16 18:40 05/18/16 19:55 05/19/16 07:20 Glucose (Fingerstick) 267mg/dL (70-99) White Blood Count 14.4x10^3/uL (4.0-11.0) Red Blood Count 1.65x10^6/uL (3.50-5.40) Hemoglobin 5.1g/dL (12.0-15.5) 8.2g/dL (12.0-15.5) Hematocrit 15.8% (36.0-47.0) Mean Corpuscular Volume 96fL (79-100) Mean Corpuscular Hemoglobin 31pg (25-35) Mean Corpuscular Hemoglobin Concent 33g/dL (31-37) Red Cell Distribution Width 18.7% (11.5-14.5) Platelet Count 78x10^3/uL (140-400) Neutrophils (%) (Auto) 92% (31-73) Lymphocytes (%) (Auto) 5% (24-48) Monocytes (%) (Auto) 2% (0-9) Eosinophils (%) (Auto) 0% (0-3) Basophils (%) (Auto) 0% (0-3) Neutrophils # (Auto) 13.3x10^3uL (1.8-7.7) Lymphocytes # (Auto) 0.8x10^3/uL (1.0-4.8) Monocytes # (Auto) 0.3x10^3/uL (0.0-1.1) Eosinophils # (Auto) 0.0x10^3/uL (0.0-0.7) Basophils # (Auto) 0.0x10^3/uL (0.0-0.2) Prothrombin Time 31.3SEC (11.7-14.0) Prothromb Time International Ratio 3.2 (0.8-1.1) Activated Partial Thromboplast Time 43SEC (24-38) Sodium Level 141mmol/L (136-145) 143mmol/L (136-145) Potassium Level 4.3mmol/L (3.5-5.1) 5.0mmol/L (3.5-5.1) Chloride Level 100mmol/L (98-107) 104mmol/L (98-107) Carbon Dioxide Level 22mmol/L (21-32) 26mmol/L (21-32) Anion Gap 19 (6-14) 13 (6-14) Blood Urea Nitrogen 33mg/dL (7-20) 44mg/dL (7-20) Creatinine 4.2mg/dL (0.6-1.0) 4.7mg/dL (0.6-1.0) Estimated GFR (Cockcroft-Gault) 12.8 11.2 BUN/Creatinine Ratio 8 (6-20) Glucose Level 377mg/dL (70-99) 81mg/dL (70-99) Calcium Level 7.0mg/dL (8.5-10.1) 8.7mg/dL (8.5-10.1) Total Bilirubin 0.7mg/dL (0.2-1.0) Aspartate Amino Transf (AST/SGOT) 735U/L (15-37) Alanine Aminotransferase (ALT/SGPT) 566U/L (14-59) Alkaline Phosphatase 396U/L (46-116) Total Protein 3.8g/dL (6.4-8.2) Albumin 1.9g/dL (3.4-5.0) Albumin/Globulin Ratio 1.0 (1.0-1.7) O2 Saturation 99% (92-99) Arterial Blood pH 7.47 (7.35-7.45) Arterial Blood pCO2 at Patient Temp 30mmHg (35-46) Arterial Blood pO2 at Patient Temp 317mmHg (85-108) Arterial Blood HCO3 21mmol/L (21-28) Arterial Blood Base Excess -2mmol/L (-3-3) FiO2 70 Phosphorus Level 6.4mg/dL (2.6-4.7) Magnesium Level 1.9mg/dL (1.8-2.4) Test 05/19/16 08:45 05/20/16 04:10 05/20/16 04:40 O2 Saturation 94% (92-99) Arterial Blood pH 7.49 (7.35-7.45) Arterial Blood pCO2 at Patient Temp 32mmHg (35-46) Arterial Blood pO2 at Patient Temp 73mmHg (85-108) Arterial Blood HCO3 24mmol/L (21-28) Arterial Blood Base Excess 1mmol/L (-3-3) FiO2 40 White Blood Count 12.7x10^3/uL (4.0-11.0) Red Blood Count 2.54x10^6/uL (3.50-5.40) Hemoglobin 7.7g/dL (12.0-15.5) Hematocrit 22.9% (36.0-47.0) Mean Corpuscular Volume 90fL (79-100) Mean Corpuscular Hemoglobin 30pg (25-35) Mean Corpuscular Hemoglobin Concent 34g/dL (31-37) Red Cell Distribution Width 16.4% (11.5-14.5) Platelet Count 116x10^3/uL (140-400) Prothrombin Time 16.7SEC (11.7-14.0) Prothromb Time International Ratio 1.4 (0.8-1.1) Sodium Level 138mmol/L (136-145) Potassium Level 5.0mmol/L (3.5-5.1) Chloride Level 100mmol/L (98-107) Carbon Dioxide Level 25mmol/L (21-32) Anion Gap 13 (6-14) Blood Urea Nitrogen 51mg/dL (7-20) Creatinine 5.8mg/dL (0.6-1.0) Estimated GFR (Cockcroft-Gault) 8.8 Glucose Level 131mg/dL (70-99) Calcium Level 8.4mg/dL (8.5-10.1) Laboratory Tests Test 05/20/16 04:10 05/20/16 04:40 White Blood Count 12.7x10^3/uL (4.0-11.0) Red Blood Count 2.54x10^6/uL (3.50-5.40) Hemoglobin 7.7g/dL (12.0-15.5) Hematocrit 22.9% (36.0-47.0) Mean Corpuscular Volume 90fL (79-100) Mean Corpuscular Hemoglobin 30pg (25-35) Mean Corpuscular Hemoglobin Concent 34g/dL (31-37) Red Cell Distribution Width 16.4% (11.5-14.5) Platelet Count 116x10^3/uL (140-400) Prothrombin Time 16.7SEC (11.7-14.0) Prothromb Time International Ratio 1.4 (0.8-1.1) Sodium Level 138mmol/L (136-145) Potassium Level 5.0mmol/L (3.5-5.1) Chloride Level 100mmol/L (98-107) Carbon Dioxide Level 25mmol/L (21-32) Anion Gap 13 (6-14) Blood Urea Nitrogen 51mg/dL (7-20) Creatinine 5.8mg/dL (0.6-1.0) Estimated GFR (Cockcroft-Gault) 8.8 Glucose Level 131mg/dL (70-99) Calcium Level 8.4mg/dL (8.5-10.1) Notes Patient awake and alert. breathing nonlabored. incision covered with dressing, refused dressing change. mild to moderate edema. no erythema. shadow drainage noted. NV RLE Problems: (1) Hip fracture, right Assessment and Plan Start PT for ROM Discussed with RN to do dressing change after pain medication given and alert for any concerning S/S of injection Problem Qualifiers (1) Hip fracture, right: Encounter type: subsequent encounter Fracture type: closed Fracture healing : with routine healing Qualified Code: S72.001D - Fracture of unspecified part of neck of right femur, subsequent encounter for closed fracture with routine healing LANI KOCH [employer] May 20, 2016 15:41
[2016-05-20] MEDS ORDERED: WARFARIN 3 MG TABLET. PO ONE (16:00)
--- NOTE | 2016-05-20 17:35 | PATHOLOGY ---
PATHOLOGY REPORT * * * * * * * * FINAL DIAGNOSIS: A. Segment of bone with attached fibrous tissue, right hip femoral neck bone: - Reactive bone formation/bone remodeling with fibrosis and focal hemosiderin laden macrophages no acute inflammation identified. B. Fibrous tissue, deep tissue right hip: - Fibrosis with focal hemosiderin laden macrophages - no acute inflammation identified. (JPM:thaddeus; d/t: 05/20/2016) REPORT ELECTRONICALLY SIGNED BY: Dino Erazo M.D. DATE/TIME: 05/20/2016 17:34 * * * * * * * * GROSS PATHOLOGY: A. The specimen is received in formalin labeled "June Anthony, right hip femoral neck bone". Is a segment of pink-roldan bone measuring 0.7 x 0.6 x 0.3 cm in greatest dimensions. The specimen is submitted entirely in cassette A1, following decalcification. (CAA; 05/19/2016) B. The specimen is received fresh for intraoperative consultation and is designated deep tissue right hip. This consists of an elongate irregular segment of pinkish white and red soft tissue showing focal cautery artifact, measuring 2.2 cm in length and 0.9 cm in width. The specimen is bisected. A portion of the cut surface is pinkish white consistent with ligamentous tissue. All is submitted for frozen section as FSB1. The tissue remaining from frozen section is submitted for permanent sections as B1. (JPM:thaddeus; d/t: 05/18/2016) FROZEN SECTION DIAGNOSIS: (Intraoperative consultation with Frozen Section Dr. Erazo); Deep tissue right hip: - No significant acute inflammation. The results were reported to Dr. Feldman in the operating room. (JPM:thaddeus; d/t: 05/18/2016) Testing performed by [facility] at [address] [address] INITIAL CPT CODE(S): A; 08947, 86666 B; 52731, 42696 Professional services performed by [facility] at [address] [address] Technical services performed by [facility] at [address] [place] [address], [address], [place] [address]. SPECIMEN(S) RECEIVED: A.Right hip femoral neck bone B.Deep tissue right hip CLINICAL HISTORY: Previous infection of right SULAIMAN PATIENT: ANTHONYJune /AGE: 11 1990 (Age: 26) PATIENT #: [id number] ALT CASE #: SPECIMEN COLLECTION DATE: 05/18/2016 SPECIMEN RECEIVED DATE: 05/18/2016 [facility] - [id number] [address] - PHONE: [phone] * * * END OF REPORT * * *
--- NOTE | 2016-05-20 17:43 | PDOC ---
PROGRESS NOTES Chief Complaint Chief Complaint 0. S/P code blue after hip replacement 1. Abdominal pain; chronic, unclear etiology 2. Narcotic dependence. 3. Hx osteomyelitis, and replaced hip hardware. 4. elevated Alk Phos; isolated. 5. ESRD: HD M/W/F 6. Anemia; severe, 2/2 ESRD. History of Present Illness History of Present Illness Patient seen in ICU. Complains of a lot of pain secondary to compression during the code yesterday DW RN and case mgmt Vitals Vitals Vital Signs Date Time Temp Pulse Resp B/P Pulse Ox O2 Delivery O2 Flow Rate FiO2 05/20/16 17:00 98 Nasal Cannula 2.0 05/20/16 15:00 98.5 100 16 147/45 98.5 Physical Exam General: Alert, Oriented X3, Cooperative Heart: Regular rate Lungs: Clear, Other (painful over R ribs, following last night's code/CPR) Abdomen: Normal bowel sounds Extremities: No clubbing, No edema Skin: No rashes Labs LABS Laboratory Tests Test 05/20/16 04:10 05/20/16 04:40 White Blood Count 12.7x10^3/uL (4.0-11.0) Red Blood Count 2.54x10^6/uL (3.50-5.40) Hemoglobin 7.7g/dL (12.0-15.5) Hematocrit 22.9% (36.0-47.0) Mean Corpuscular Volume 90fL (79-100) Mean Corpuscular Hemoglobin 30pg (25-35) Mean Corpuscular Hemoglobin Concent 34g/dL (31-37) Red Cell Distribution Width 16.4% (11.5-14.5) Platelet Count 116x10^3/uL (140-400) Prothrombin Time 16.7SEC (11.7-14.0) Prothromb Time International Ratio 1.4 (0.8-1.1) Sodium Level 138mmol/L (136-145) Potassium Level 5.0mmol/L (3.5-5.1) Chloride Level 100mmol/L (98-107) Carbon Dioxide Level 25mmol/L (21-32) Anion Gap 13 (6-14) Blood Urea Nitrogen 51mg/dL (7-20) Creatinine 5.8mg/dL (0.6-1.0) Estimated GFR (Cockcroft-Gault) 8.8 Glucose Level 131mg/dL (70-99) Calcium Level 8.4mg/dL (8.5-10.1) Review of Systems Review of Systems co pain co weakness Assessment and Plan Assessmemt and Plan Problems Medical Problems: (1) Abdominal pain Status: Acute (2) Hip fracture, right Status: Acute (3) Infection and inflammatory reaction due to internal right hip prosthesis, subsequent encounter Status: Acute (4) Intractable abdominal pain Status: Acute (5) Nausea & vomiting Status: Acute 0. S/P code blue after hip replacement 1. Abdominal pain; chronic, unclear etiology 2. Narcotic dependence. 3. Hx osteomyelitis, and replaced hip hardware. 4. elevated Alk Phos; isolated. 5. ESRD: HD M/W/F 6. Anemia; severe, 2/2 ESRD. Plan Cardiac monitoring HD MWF Wound care Recheck labs PTOT Narcotics Problems: Comment Review of Relevant I have reviewed the following items lynnette (where applicable) has been applied. Labs Laboratory Tests Test 05/18/16 18:40 05/18/16 19:55 05/19/16 07:20 05/19/16 08:45 White Blood Count 14.4x10^3/uL (4.0-11.0) Red Blood Count 1.65x10^6/uL (3.50-5.40) Hemoglobin 5.1g/dL (12.0-15.5) 8.2g/dL (12.0-15.5) Hematocrit 15.8% (36.0-47.0) Mean Corpuscular Volume 96fL (79-100) Mean Corpuscular Hemoglobin 31pg (25-35) Mean Corpuscular Hemoglobin Concent 33g/dL (31-37) Red Cell Distribution Width 18.7% (11.5-14.5) Platelet Count 78x10^3/uL (140-400) Neutrophils (%) (Auto) 92% (31-73) Lymphocytes (%) (Auto) 5% (24-48) Monocytes (%) (Auto) 2% (0-9) Eosinophils (%) (Auto) 0% (0-3) Basophils (%) (Auto) 0% (0-3) Neutrophils # (Auto) 13.3x10^3uL (1.8-7.7) Lymphocytes # (Auto) 0.8x10^3/uL (1.0-4.8) Monocytes # (Auto) 0.3x10^3/uL (0.0-1.1) Eosinophils # (Auto) 0.0x10^3/uL (0.0-0.7) Basophils # (Auto) 0.0x10^3/uL (0.0-0.2) Prothrombin Time 31.3SEC (11.7-14.0) Prothromb Time International Ratio 3.2 (0.8-1.1) Activated Partial Thromboplast Time 43SEC (24-38) Sodium Level 141mmol/L (136-145) 143mmol/L (136-145) Potassium Level 4.3mmol/L (3.5-5.1) 5.0mmol/L (3.5-5.1) Chloride Level 100mmol/L (98-107) 104mmol/L (98-107) Carbon Dioxide Level 22mmol/L (21-32) 26mmol/L (21-32) Anion Gap 19 (6-14) 13 (6-14) Blood Urea Nitrogen 33mg/dL (7-20) 44mg/dL (7-20) Creatinine 4.2mg/dL (0.6-1.0) 4.7mg/dL (0.6-1.0) Estimated GFR (Cockcroft-Gault) 12.8 11.2 BUN/Creatinine Ratio 8 (6-20) Glucose Level 377mg/dL (70-99) 81mg/dL (70-99) Calcium Level 7.0mg/dL (8.5-10.1) 8.7mg/dL (8.5-10.1) Total Bilirubin 0.7mg/dL (0.2-1.0) Aspartate Amino Transf (AST/SGOT) 735U/L (15-37) Alanine Aminotransferase (ALT/SGPT) 566U/L (14-59) Alkaline Phosphatase 396U/L (46-116) Total Protein 3.8g/dL (6.4-8.2) Albumin 1.9g/dL (3.4-5.0) Albumin/Globulin Ratio 1.0 (1.0-1.7) O2 Saturation 99% (92-99) 94% (92-99) Arterial Blood pH 7.47 (7.35-7.45) 7.49 (7.35-7.45) Arterial Blood pCO2 at Patient Temp 30mmHg (35-46) 32mmHg (35-46) Arterial Blood pO2 at Patient Temp 317mmHg (85-108) 73mmHg (85-108) Arterial Blood HCO3 21mmol/L (21-28) 24mmol/L (21-28) Arterial Blood Base Excess -2mmol/L (-3-3) 1mmol/L (-3-3) FiO2 70 40 Phosphorus Level 6.4mg/dL (2.6-4.7) Magnesium Level 1.9mg/dL (1.8-2.4) Test 05/20/16 04:10 05/20/16 04:40 White Blood Count 12.7x10^3/uL (4.0-11.0) Red Blood Count 2.54x10^6/uL (3.50-5.40) Hemoglobin 7.7g/dL (12.0-15.5) Hematocrit 22.9% (36.0-47.0) Mean Corpuscular Volume 90fL (79-100) Mean Corpuscular Hemoglobin 30pg (25-35) Mean Corpuscular Hemoglobin Concent 34g/dL (31-37) Red Cell Distribution Width 16.4% (11.5-14.5) Platelet Count 116x10^3/uL (140-400) Prothrombin Time 16.7SEC (11.7-14.0) Prothromb Time International Ratio 1.4 (0.8-1.1) Sodium Level 138mmol/L (136-145) Potassium Level 5.0mmol/L (3.5-5.1) Chloride Level 100mmol/L (98-107) Carbon Dioxide Level 25mmol/L (21-32) Anion Gap 13 (6-14) Blood Urea Nitrogen 51mg/dL (7-20) Creatinine 5.8mg/dL (0.6-1.0) Estimated GFR (Cockcroft-Gault) 8.8 Glucose Level 131mg/dL (70-99) Calcium Level 8.4mg/dL (8.5-10.1) Laboratory Tests Test 05/20/16 04:10 05/20/16 04:40 White Blood Count 12.7x10^3/uL (4.0-11.0) Red Blood Count 2.54x10^6/uL (3.50-5.40) Hemoglobin 7.7g/dL (12.0-15.5) Hematocrit 22.9% (36.0-47.0) Mean Corpuscular Volume 90fL (79-100) Mean Corpuscular Hemoglobin 30pg (25-35) Mean Corpuscular Hemoglobin Concent 34g/dL (31-37) Red Cell Distribution Width 16.4% (11.5-14.5) Platelet Count 116x10^3/uL (140-400) Prothrombin Time 16.7SEC (11.7-14.0) Prothromb Time International Ratio 1.4 (0.8-1.1) Sodium Level 138mmol/L (136-145) Potassium Level 5.0mmol/L (3.5-5.1) Chloride Level 100mmol/L (98-107) Carbon Dioxide Level 25mmol/L (21-32) Anion Gap 13 (6-14) Blood Urea Nitrogen 51mg/dL (7-20) Creatinine 5.8mg/dL (0.6-1.0) Estimated GFR (Cockcroft-Gault) 8.8 Glucose Level 131mg/dL (70-99) Calcium Level 8.4mg/dL (8.5-10.1) Medications Current Medications Ondansetron HCl (Zofran) 4 mg 1X ONCE IV Last administered on 05/15/16 19:17 ; Start 05/15/16 at 19:00; Stop 05/15/16 at 19:01; Status DC Morphine Sulfate 4 mg 1X ONCE IV Last administered on 05/15/16 19:19; Start 05/15/16 at 19:00; Stop 05/15/16 at 19:01; Status DC Hydralazine HCl (Apresoline) 10 mg 1X ONCE IVP Last administered on 05/15/16 19:21; Start 05/15/16 at 19:00; Stop 05/15/16 at 19:01; Status DC Lorazepam (Ativan) 1 mg 1X ONCE PO Last administered on 05/15/16 20:04; Start 05/15/16 at 19:45; Stop 05/15/16 at 19:46; Status DC Alprazolam (Xanax) 2 mg PRN TID PRN PO ANXIETY / AGITATION; Start 05/15/16 at 20:45; Stop 05/15/16 at 20:47; Status DC Amlodipine Besylate (Norvasc) 10 mg DAILY PO Last administered on 05/20/16 09: 23; Start 05/16/16 at 09:00 Hydralazine HCl (Apresoline) 50 mg TID PO Last administered on 05/20/16 14:21; Start 05/16/16 at 09:00 Ondansetron HCl (Zofran Odt) 4 mg PRN Q8HRS PRN PO NAUSEA; Start 05/15/16 at 20 :45 Oxycodone/ Acetaminophen (Percocet 7.5/ 325) 1 tab PRN Q8HRS PRN PO PAIN; Start 05/15/16 at 20:45; Status Cancel Metoprolol Succinate (Toprol Xl) 200 mg DAILY PO Last administered on 05/20/16 09:23; Start 05/16/16 at 09:00 Alprazolam (Xanax) 2 mg PRN TID PRN PO ANXIETY / AGITATION; Start 05/15/16 at 20:47 Morphine Sulfate 4 mg 1X ONCE IV Last administered on 05/15/16 21:13; Start 05/15/16 at 21:00; Stop 05/15/16 at 21:01; Status DC Ondansetron HCl (Zofran) 4 mg 1X ONCE IV Last administered on 05/15/16 21:08 ; Start 05/15/16 at 21:00; Stop 05/15/16 at 21:01; Status DC Labetalol HCl (Normodyne) 20 mg PRN Q6HRS PRN IVP HYPERTENSION, SEE COMMENTS Last administered on 05/20/16 04:29; Start 05/15/16 at 23:30 Lorazepam (Ativan) 1 mg PRN Q6HRS PRN IV ANXIETY / AGITATION Last administered on 05/16/16 20:22; Start 05/15/16 at 23:30; Stop 05/16/16 at 22:44; Status DC Morphine Sulfate 2 mg PRN Q2HR PRN IV PAIN Last administered on 05/16/16 10:52 ; Start 05/15/16 at 23:30; Stop 05/16/16 at 11:42; Status DC Morphine Sulfate 4 mg PRN Q2HR PRN IV PAIN; Start 05/15/16 at 23:30; Stop 05/16 at 11:42; Status DC Diphenhydramine HCl (Benadryl) 50 mg PRN Q6HRS PRN IVP ITCHING Last administered on 05/16/16 20:23; Start 05/15/16 at 23:30; Stop 05/16/16 at 22:44 ; Status DC Morphine Sulfate 1 mg PRN Q2HR PRN IV PAIN Last administered on 05/17/16 18:38 ; Start 05/16/16 at 11:45 Diphenhydramine HCl (Benadryl) 25 mg PRN Q8HRS PRN IVP ITCHING Last administered on 05/18/16 04:54; Start 05/16/16 at 23:30; Stop 05/18/16 at 15:51 ; Status DC Lorazepam (Ativan) 0.5 mg PRN Q8HRS PRN IV ANXIETY / AGITATION Last administered on 05/20/16 15:02; Start 05/16/16 at 23:30 Metoclopramide HCl (Reglan) 5 mg PRN Q8HRS PRN IV NAUSEA/VOMITING; Start at 22:45 Polyethylene Glycol (miraLAX PACKET) 17 gm BID PO ; Start 05/17/16 at 09:00 Lidocaine HCl 2 ml 2 ml [employer]-MED ONCE .ROUTE ; Start 05/17/16 at 11:20; Stop at 11:21; Status DC Sodium Chloride (Iv Sodium Chloride 0.9% 1000ml Bag) 1,000 ml @ 1,000 mls/hr Q1H PRN IV hypotension; Start 05/17/16 at 12:42; Stop 05/17/16 at 18:41; Status DC Diphenhydramine HCl (Benadryl) 25 mg 1X PRN PRN IV ITCHING; Start 05/17/16 at 12:45; Stop 05/18/16 at 12:44; Status DC Diphenhydramine HCl (Benadryl) 25 mg 1X PRN PRN IV ITCHING; Start 05/17/16 at 12:45; Stop 05/18/16 at 12:44; Status DC Info (PHARMACY MONITORING -- do not chart) 1 each PRN DAILY PRN MC SEE COMMENTS ; Start 05/17/16 at 12:45; Status UNV Info 1 each 1 each PRN DAILY PRN MC SEE COMMENTS; Start 05/17/16 at 12:45; Status UNV Morphine Sulfate/ Ketorolac Tromethamine/ Ropivacaine/ Epinephrine HCl/ Sodium Chloride (Morphine 5mg Syringe/Toradol/ Naropin 0.5%/ Adrenalin/Iv Sodium Chloride 0.9% 100ml) 100.5 ml @ 100.5 mls/ hr 1X PERIOP ONCE INT ART Last administered on 05/18/16 08:20; Start 05/18/16 at 06:00; Stop 05/18/16 at 06:59 ; Status DC Ondansetron HCl (Zofran) 4 mg PRN Q6HRS PRN IV Nausea; Start 05/18/16 at 07:00 ; Stop 05/19/16 at 06:59; Status DC Fentanyl Citrate (Fentanyl 2ml Vial) 25 mcg PRN Q5MIN PRN IV MILD PAIN Last administered on 05/18/16 16:42; Start 05/18/16 at 07:00; Stop 05/19/16 at 06:59 ; Status DC Fentanyl Citrate (Fentanyl 2ml Vial) 50 mcg PRN Q5MIN PRN IV MODERATE PAIN Last administered on 05/19/16 02:10; Start 05/18/16 at 07:00; Stop 05/19/16 at 06 :59; Status DC Morphine Sulfate 1 mg PRN Q10MIN PRN IV SEVERE PAIN; Start 05/18/16 at 07:00; Stop 05/19/16 at 06:59; Status DC Lidocaine HCl 2 ml 1X PRN PRN ID IV START; Start 05/18/16 at 07:00; Stop at 06:59; Status DC Hydromorphone HCl (Dilaudid) 0.5 mg PRN Q10MIN PRN IV SEVERE PAIN, Second choice Last administered on 05/19/16 00:53; Start 05/18/16 at 07:00; Stop at 06:59; Status DC Prochlorperazine Edisylate 5 mg 5 mg PACU PRN PRN IV NAUSEA; Start 05/18/16 at 07:00; Stop 05/19/16 at 06:59; Status DC Sodium Chloride (Iv Sodium Chloride 0.9% 1000ml Bag) 1,000 ml @ 30 mls/hr Q24H IV ; Start 05/18/16 at 07:00; Stop 05/19/16 at 07:48; Status DC Warfarin Sodium (Coumadin) 5 mg 1X ONCE PO Last administered on 05/17/16t 16: 31; Start 05/17/16 at 17:00; Stop 05/17/16 at 17:01; Status DC Acetaminophen/ Hydrocodone Bitart (Lortab 7.5/325) 2 tab 1X ONCE PO ; Start at 05:30; Stop 05/18/16 at 05:31; Status Cancel Acetaminophen/ Hydrocodone Bitart 2 tab 2 tab 1X PREOP PRN PO PRIOR TO PROCEDURE; Start 05/18/16 at 06:00; Stop 05/18/16 at 18:00; Status DC Cefazolin Sodium/ Dextrose 50 ml @ 100 mls/hr 1X PREOP PRN IV PRIOR TO PROCEDURE; Start 05/18/16 at 06:00; Stop 05/18/16 at 18:00; Status DC Morphine Sulfate/ Ketorolac Tromethamine/ Ropivacaine/ Epinephrine HCl/ Sodium Chloride (Morphine 5mg Syringe/Toradol/ Naropin 0.5%/ Adrenalin/Iv Sodium Chloride 0.9% 50ml) 100.5 ml @ 100.5 mls/ hr 1X PERIOP ONCE INT ART ; Start at 06:00; Stop 05/18/16 at 06:59; Status Cancel Dexamethasone Sodium Phosphate (Decadron) 20 mg STK-MED ONCE .ROUTE ; Start at 06:57; Stop 05/18/16 at 06:58; Status DC Ondansetron HCl 4 mg 4 mg STK-MED ONCE .ROUTE ; Start 05/18/16 at 06:57; Stop at 06:58; Status DC Propofol (Diprivan) 20 ml @ As Directed STK-MED ONCE IV ; Start 05/18/16 at 06: 57; Stop 05/18/16 at 06:58; Status DC Lidocaine HCl 100 mg STK-MED ONCE .ROUTE ; Start 05/18/16 at 06:57; Stop at 06:58; Status DC Fentanyl Citrate (Fentanyl 5ml Vial) 250 mcg STK-MED ONCE .ROUTE ; Start at 06:57; Stop 05/18/16 at 06:58; Status DC Midazolam HCl (Versed) 2 mg STK-MED ONCE .ROUTE ; Start 05/18/16 at 06:58; Stop 05/18/16 at 06:59; Status DC Rocuronium [place] 50 mg 50 mg STK-MED ONCE .ROUTE ; Start 05/18/16 at 06:58; Stop 05/18/16 at 06:59; Status DC Acetaminophen 100 ml @ As Directed STK-MED ONCE IV ; Start 05/18/16 at 07:13; Stop 05/18/16 at 07:14; Status DC Sodium Chloride 500 ml @ 30 mls/hr [id number] IV Last administered on 05/18/16 07:45; Start 05/18/16 at 07:45; Stop 05/19/16 at 07:48; Status DC Cefazolin Sodium (Ancef 1gm Ivpb For Omni) 50 ml @ As Directed STK-MED ONCE IV ; Start 05/18/16 at 07:45; Stop 05/18/16 at 07:46; Status DC Fentanyl Citrate (Fentanyl 5ml Vial) 250 mcg STK-MED ONCE .ROUTE ; Start at 08:27; Stop 05/18/16 at 08:28; Status DC Rocuronium [place] (Zemuron) 50 mg STK-MED ONCE .ROUTE ; Start 05/18/16 at 08:27 ; Stop 05/18/16 at 08:28; Status DC Morphine Sulfate 5 mg 5 mg STK-MED ONCE .ROUTE ; Start 05/18/16 at 08:59; Stop 05/18/16 at 09:00; Status DC Cefazolin Sodium (Ancef 1gm Ivpb For Omni) 50 ml @ 100 mls/hr 1X PREOP PRN IV PER PROTOCOL Last administered on 05/18/16 08:06; Start 05/18/16 at 09:30; Stop 05/19/16 at 09:29; Status DC Lisinopril (Prinivil) 20 mg DAILY PO Last administered on 05/20/16t 09:23; Start 05/18/16 at 11:30 Albuterol Sulfate (Ventolin Neb Soln) 2.5 mg STK-MED ONCE .ROUTE ; Start at 11:24; Stop 05/18/16 at 11:25; Status DC Morphine Sulfate 10 mg STK-MED ONCE .ROUTE ; Start 05/18/16 at 11:55; Stop 05/18 at 11:56; Status DC Cefazolin Sodium/ Dextrose 2 gm 2 gm STK-MED ONCE IV ; Start 05/18/16 at 07:30; Stop 05/18/16 at 12:41; Status DC Cefazolin Sodium (Ancef 1gm Ivpb For Omni) 50 ml @ As Directed STK-MED ONCE IV ; Start 05/18/16 at 13:02; Stop 05/18/16 at 13:03; Status DC Fentanyl Citrate (Fentanyl 5ml Vial) 250 mcg STK-MED ONCE .ROUTE ; Start at 13:27; Stop 05/18/16 at 13:28; Status DC Phenylephrine HCl 1 mg STK-MED ONCE IV ; Start 05/18/16 at 13:58; Stop 05/18/16 at 13:59; Status DC Insulin Human Regular (Novolin R Vial) 10 unit 1X ONCE IV ; Start 05/18/16 at 14:15; Stop 05/18/16 at 14:16; Status DC Acetaminophen/ Hydrocodone Bitart (Lortab 7.5/325) 1 tab PRN Q3HRS PRN PO PAIN ; Start 05/18/16 at 15:45 Acetaminophen/ Hydrocodone Bitart (Lortab 10/325) 1 tab PRN Q3HRS PRN PO PAIN; Start 05/18/16 at 15:45 Tramadol HCl (Ultram) 50 mg PRN QID PRN PO PAIN; Start 05/18/16 at 15:45 Oxycodone/ Acetaminophen (Percocet 5/325) 1 tab PRN Q3HRS PRN PO PAIN; Start at 15:45 Oxycodone/ Acetaminophen (Percocet 7.5/ 325) 1 tab PRN Q3HRS PRN PO PAIN; Start 05/18/16 at 15:45 Tramadol HCl (Ultram) 100 mg PRN Q3HRS PRN PO PAIN; Start 05/18/16 at 15:45 Morphine Sulfate 2 mg PRN Q1HR PRN IV PAIN; Start 05/18/16 at 15:45 Fentanyl Citrate (Fentanyl 2ml Vial) 25 mcg PRN Q1HR PRN IV PAIN Last administered on 05/19/16 20:58; Start 05/18/16 at 15:45 Diphenhydramine HCl (Benadryl) 25 mg PRN Q6HRS PRN IV ITCHING Last administered on 05/20/16 13:36; Start 05/18/16 at 15:45 Warfarin Sodium (Coumadin Per Pharmacy) 1 each PRN DAILY PRN MC SEE COMMENTS Last administered on 05/20/16 12:25; Start 05/18/16 at 15:45 Multivitamins/ Calcium (Thera M Plus) 1 tab DAILY PO ; Start 05/19/16 at 09:00 Senna/Docusate Sodium (Senna Plus) 1 tab DAILY PO ; Start 05/19/16 at 09:00 Ferrous Sulfate 325 mg 325 mg BIDWMEALS PO Last administered on 05/20/16 16:26 ; Start 05/18/16 at 17:00 Dextrose/Sodium Chloride (Iv D5% - 1/2 NS) 1,000 ml @ 100 mls/hr Q10H IV ; Start 05/18/16 at 15:31; Stop 05/19/16 at 07:48; Status DC Magnesium Hydroxide (Milk Of Magnesia) 2,400 mg 1X PRN PRN PO CONSTIPATION; Start 05/19/16 at 06:00; Stop 05/20/16 at 05:59; Status DC Bisacodyl (Dulcolax Supp) 10 mg 1X PRN PRN IN CONSTIPATION; Start 05/19/16 at 16 :00; Stop 05/20/16 at 15:59; Status DC Acetaminophen (Tylenol) 650 mg PRN Q4HRS PRN PO MILD PAIN / TEMP; Start at 15:45 Zolpidem Tartrate (Ambien) 5 mg PRN QHS PRN PO INSOMNIA, MAY REPEAT IN 1HR Last administered on 05/19/16 21:06; Start 05/18/16 at 15:45 Calcium Carbonate/ Glycine (Tums) 500 mg PRN QID PRN PO INDIGESTION; Start at 15:45 Morphine Sulfate 4 mg PRN Q1HR PRN IV PAIN Last administered on 05/20/16 16:29 ; Start 05/18/16 at 15:45 Morphine Sulfate 6 mg PRN Q1HR PRN IV PAIN Last administered on 05/20/16 04:29 ; Start 05/18/16 at 15:45 Morphine Sulfate 8 mg PRN Q1HR PRN IV PAIN; Start 05/18/16 at 15:45 Sodium Chloride (Normal Saline Flush) 10 ml QSHIFT PRN IV AFTER MEDS AND BLOOD DRAWS; Start 05/18/16 at 15:45 Fentanyl Citrate (Fentanyl 2ml Vial) 50 mcg PRN Q1HR PRN IV PAIN Last administered on 05/20/16 15:33; Start 05/18/16 at 15:45 Prochlorperazine Edisylate (Compazine) 10 mg PRN Q4HRS PRN IV NAUSEA/VOMITING; Start 05/18/16 at 15:45 Dextrose 12.5 gm 12.5 gm PRN Q15MIN PRN IV SEE COMMENTS; Start 05/18/16 at 15: 45 Cefazolin Sodium/ Sodium Chloride (Ancef/Iv Sodium Chloride 0.9% 50ml) 50 ml @ 100 mls/hr Q6H IV Last administered on 05/19/16 05:00; Start 05/18/16 at 16:00 ; Stop 05/19/16 at 04:29; Status DC Warfarin Sodium (Coumadin) 5 mg 1X WARF ONCE PO ; Start 05/18/16 at 16:00; Stop 05/18/16 at 16:01; Status DC Lidocaine/Sodium Bicarbonate 20 ml 20 ml STK-MED ONCE IJ ; Start 05/18/16 at 16: 51; Stop 05/18/16 at 16:52; Status DC Heparin Sodium/ Sodium Chloride 500 ml @ As Directed STK-MED ONCE .ROUTE ; Start 05/18/16 at 16:51; Stop 05/18/16 at 16:52; Status DC Heparin Sodium (Porcine) 24778 unit 10,000 unit STK-MED ONCE .ROUTE ; Start at 16:52; Stop 05/18/16 at 16:53; Status DC Sodium Chloride (Iv Sodium Chloride 0.9% 1000ml Bag) 1,000 ml @ 1,000 mls/hr Q1H PRN IV hypotension; Start 05/18/16 at 17:23; Stop 05/18/16 at 23:22; Status DC Diphenhydramine HCl (Benadryl) 75 mg 1X PRN PRN IV ITCHING; Start 05/18/16 at 17:30; Stop 05/19/16 at 17:29; Status DC Info (PHARMACY MONITORING -- do not chart) 1 each PRN DAILY PRN MC SEE COMMENTS ; Start 05/18/16 at 17:30 Info (PHARMACY MONITORING -- do not chart) 1 each PRN DAILY PRN MC SEE COMMENTS ; Start 05/18/16 at 17:30; Status UNV Lidocaine/Sodium Bicarbonate (Buffered Lidocaine 1%) 3 ml 1X ONCE IJ Last administered on 05/18/16 17:34; Start 05/18/16 at 17:30; Stop 05/18/16 at 17:34 ; Status DC Heparin Sodium/ Sodium Chloride 60 unit 1X ONCE IV ; Start 05/18/16 at 17:30; Stop 05/18/16 at 17:34; Status DC Insulin Aspart (Novolog Vial) 10 unit 1X ONCE SQ ; Start 05/18/16 at 18:30; Stop 05/18/16 at 18:31; Status Cancel Insulin Human Regular 10 unit 10 unit 1X ONCE IV ; Start 05/18/16 at 19:00; Stop 05/18/16 at 19:01; Status DC Propofol (Diprivan) 100 ml @ 0 mls/hr CONT PRN IV . Last administered on 02:10; Start 05/18/16 at 19:00 Darbepoetin Jude (Aranesp) 60 mcg [id number] SQ ; Start 05/19/16 at 21:00 Diphenhydramine HCl (Benadryl) 50 mg 1X ONCE IM Last administered on 05/19/16 13:27; Start 05/19/16 at 13:15; Stop 05/19/16 at 13:16; Status DC Warfarin Sodium (Coumadin - No Dose Today) 1 each 1X WARF ONCE MC ; Start at 16:00; Stop 05/19/16 at 16:01; Status DC Hydralazine HCl (Apresoline) 10 mg PRN Q4HRS PRN IVP ELEVATED BP, SEE COMMENTS Last administered on 05/19/16 23:57; Start 05/19/16 at 16:15 Amlodipine Besylate (Norvasc) 10 mg 1X ONCE PO Last administered on 05/19/16 17:34; Start 05/19/16 at 17:30; Stop 05/19/16 at 17:31; Status DC Lisinopril (Prinivil) 20 mg 1X ONCE PO Last administered on 05/19/16 17:34; Start 05/19/16 at 17:30; Stop 05/19/16 at 17:31; Status DC Metoprolol Succinate (Toprol Xl) 200 mg 1X ONCE PO Last administered on 17:34; Start 05/19/16 at 17:30; Stop 05/19/16 at 17:31; Status DC Lidocaine HCl 2 ml 2 ml STK-MED ONCE .ROUTE ; Start 05/20/16 at 08:19; Stop at 08:20; Status DC Sodium Chloride (Iv Sodium Chloride 0.9% 1000ml Bag) 1,000 ml @ 1,000 mls/hr Q1H PRN IV hypotension; Start 05/20/16 at 09:24; Stop 05/20/16 at 15:23; Status DC Diphenhydramine HCl (Benadryl) 25 mg 1X PRN PRN IV ITCHING Last administered on 05/20/16 09:36; Start 05/20/16 at 09:30; Stop 05/21/16 at 09:29 Diphenhydramine HCl (Benadryl) 25 mg 1X PRN PRN IV ITCHING Last administered on 05/20/16 09:59; Start 05/20/16 at 09:30; Stop 05/21/16 at 09:29 Sodium Chloride (Normal Saline Flush) 10 ml 1X PRN PRN IV AP catheter pack; Start 05/20/16 at 09:30; Stop 05/21/16 at 09:29 Sodium Chloride (Normal Saline Flush) 10 ml 1X PRN PRN IV BUNCH TRIMMER MOLD catheter pack; Start 05/20/16 at 09:30; Stop 05/21/16 at 09:29 Info (PHARMACY MONITORING -- do not chart) 1 each PRN DAILY PRN MC SEE COMMENTS ; Start 05/20/16 at 09:30; Stop 05/20/16 at 09:31; Status DC Info (PHARMACY MONITORING -- do not chart) 1 each PRN DAILY PRN MC SEE COMMENTS ; Start 05/20/16 at 09:30 Warfarin Sodium (Coumadin) 3 mg 1X WARF ONCE PO Last administered on 05/20/16t 16:26; Start 05/20/16 at 16:00; Stop 05/20/16 at 16:01; Status DC Dextrose 25 gm STK-MED ONCE IV ; Start 05/19/16 at 12:00; Stop 05/20/16 at 16:10; Status DC Epinephrine HCl 1 mg STK-MED ONCE .ROUTE ; Start 05/19/16 at 12:00; Stop 05/20/16 at 16:10; Status DC Sodium Bicarbonate 50 meq STK-MED ONCE .ROUTE ; Start 05/19/16 at 12:00; Stop 05/20/16 at 16:10; Status DC Active Scripts Active Zofran Odt (Ondansetron) 4 Mg Tab.rapdis 1 Tab SL Q8HRS PRN Reported Percocet 7.5-325 Mg Tablet (Oxycodone/Acetaminophen) 1 Each Tablet 1 Tab PO PRN Q8HRS PRN Xanax (Alprazolam) 0.25 Mg Tablet 2 Mg PO TID PRN Metoprolol Succinate ( Xl ) (Metoprolol Succinate) 200 Mg Tab.er.24h 1 Tab PO DAILY Hydralazine Hcl 50 Mg Tablet 1 Tab PO TID Amlodipine Besylate 10 Mg Tablet 1 Tab PO DAILY Vitals/I & O Vital Sign - Last 24 Hours 05/19/16 05/19/16 05/19/16 05/19/16 18:00 19:00 19:37 19:37 Pulse 116 113 112 Resp 32 23 18 B/P 188/88 203/84 203/84 Pulse Ox 94 96 95 O2 Delivery Nasal Cannula Nasal Cannula Nasal Cannula O2 Flow Rate 2.0 2.0 2.0 05/19/16 05/19/16 05/19/16 05/19/16 20:00 20:00 20:57 20:58 Temp 98.9 98.9 Pulse 110 112 Resp 25 16 B/P 194/90 207/83 Pulse Ox 95 96 O2 Delivery Nasal Cannula Nasal Cannula Nasal Cannula O2 Flow Rate 2.0 2.0 2.0 05/19/16 05/19/16 05/19/16 05/19/16 21:00 21:28 22:00 22:30 Pulse 113 110 Resp 33 30 23 20 B/P 207/103 174/72 Pulse Ox 95 95 94 96 O2 Delivery Nasal Cannula Nasal Cannula Nasal Cannula Nasal Cannula O2 Flow Rate 2.0 2.0 2.0 2.0 05/19/16 05/19/16 05/19/16 05/19/16 23:00 23:57 23:57 23:59 Pulse 110 109 Resp 30 30 B/P 151/64 226/105 Pulse Ox 95 97 O2 Delivery Nasal Cannula Nasal Cannula Nasal Cannula O2 Flow Rate 2.0 2.0 2.0 05/20/16 05/20/16 05/20/16 05/20/16 00:00 01:00 01:29 02:00 Temp 98.8 98.8 Pulse 114 110 109 Resp 30 41 30 36 B/P 226/105 196/82 189/82 Pulse Ox 94 96 96 96 O2 Delivery Nasal Cannula Nasal Cannula Nasal Cannula Nasal Cannula O2 Flow Rate 2.0 2.0 2.0 2.0 05/20/16 05/20/16 05/20/16 05/20/16 03:00 03:01 04:00 04:00 Temp 99.1 99.1 Pulse 110 111 Resp 25 25 26 B/P 179/68 172/75 Pulse Ox 94 96 96 O2 Delivery Nasal Cannula Nasal Cannula Nasal Cannula Nasal Cannula O2 Flow Rate 2.0 2.0 2.0 2.0 05/20/16 05/20/16 05/20/16 05/20/16 04:29 04:29 04:59 05:00 Pulse 109 106 Resp 24 22 24 B/P 172/75 169/72 Pulse Ox 97 96 95 O2 Delivery Nasal Cannula Nasal Cannula Nasal Cannula O2 Flow Rate 2.0 2.0 2.0 05/20/16 05/20/16 05/20/16 05/20/16 05:58 06:00 06:26 07:48 Pulse 107 Resp 24 26 30 22 B/P 173/60 Pulse Ox 97 95 97 O2 Delivery Nasal Cannula Nasal Cannula Nasal Cannula O2 Flow Rate 2.0 2.0 2.0 05/20/16 05/20/16 05/20/1605/20/17 08:00 08:00 09:23 09:23 Temp 99.4 99.4 Pulse 106 105 105 Resp 25 B/P 174/93 212/89 212/89 Pulse Ox 97 O2 Delivery Nasal Cannula Nasal Cannula O2 Flow Rate 2.0 2.0 05/20/16 05/20/16 05/20/16 05/20/16 09:23 09:23 09:24 10:50 Pulse 105 105 Resp 20 B/P 212/89 212/89 Pulse Ox 97 100 O2 Delivery Nasal Cannula 05/20/16 05/20/16 05/20/16 05/20/16 12:00 12:31 13:36 14:21 Temp 97.8 97.8 Pulse 92 91 Resp 25 B/P 191/81 191/81 Pulse Ox 97 98 98 O2 Delivery Nasal Cannula Nasal Cannula Nasal Cannula O2 Flow Rate 2.0 2.0 05/20/16 05/20/16 05/20/16 05/20/16 15:00 15:33 16:05 16:29 Temp 98.5 98.5 Pulse 100 Resp 16 B/P 147/45 Pulse Ox 98 98 98 98 O2 Delivery Nasal Cannula Nasal Cannula Nasal Cannula Nasal Cannula O2 Flow Rate 2.0 05/20/16 17:00 Pulse Ox 98 O2 Delivery Nasal Cannula O2 Flow Rate 2.0 Intake and Output 05/19/16 05/19/16 05/20/16 15:00 23:00 07:00 Intake Total 100 ml 740 ml Balance 100 ml 740 ml LUPE EVERETTL K III DO May 20, 2016 17:42
[2016-05-21] MEDS: FENTANYL PF 100 MCG/2 ML VIAL. IV PRN ×7 (00:28→20:23)
[2016-05-21] MEDS: DIPHENHYDRAMINE 50 MG/ML VIAL IV PRN ×2 (01:41→10:08)
[2016-05-21] MEDS: MORPHINE SULFATE 4 MG/ML DISP.SYRIN. IV PRN ×7 (01:46→21:27)
[2016-05-21 03:00] VITALS: BP 141/64
[2016-05-21] MEDS ORDERED: DIPHENHYDRAMINE 50 MG/ML VIAL IVP ONE (04:00)
[2016-05-21] MEDS: LORAZEPAM 2 MG/ML VIAL IV PRN ×3 (06:28→20:23)
[2016-05-21 07:00] VITALS: BP 155/52
[2016-05-21 07:08] LABS: FIO2 ISTAT 1; TOSPEC VEN; VEN BASE EXCESS ISTAT 0 mmol/L (0-3); VEN GLUC ISTAT 195 mg/dL (70-99); VEN HCO3 ISTAT 25 mmol/L (24-28); VEN HCT ISTAT 32 % (36-40); VEN HGB ISTAT 10.9 g/dL (12-15); VEN K ISTAT 7.4 mmol/L (3.5-5.0); VEN NA ISTAT 133 mmol/L (135-145); VEN O2 ISTAT 29 mmHg (20-40); VEN PCO2 ISTAT 43 mmHg (41-51); VEN PH ISTAT 7.37 (7.32-7.42); VEN SO2 ISTAT 53 %; VEN TCO2 ISTAT 26 mmol/L (21-32)
[2016-05-21 07:09] LABS: FIO2 ISTAT 1; TOSPEC VEN; VEN BASE EXCESS ISTAT 1 mmol/L (0-3); VEN GLUC ISTAT 147 mg/dL (70-99); VEN HCO3 ISTAT 26 mmol/L (24-28); VEN HCT ISTAT 23 % (36-40); VEN HGB ISTAT 7.8 g/dL (12-15); VEN ION CA ISTAT 1.02 mmol/L (1.13-1.32); VEN K ISTAT 6.7 mmol/L (3.5-5.0); VEN NA ISTAT 133 mmol/L (135-145); VEN O2 ISTAT 34 mmHg (20-40); VEN PCO2 ISTAT 39 mmHg (41-51); VEN PH ISTAT 7.42 (7.32-7.42); VEN SO2 ISTAT 67 %; VEN TCO2 ISTAT 27 mmol/L (21-32)
[2016-05-21 07:09] LABS: FIO2 ISTAT 1; TOSPEC VEN; VEN BASE EXCESS ISTAT -1 mmol/L (0-3); VEN GLUC ISTAT 141 mg/dL (70-99); VEN HCO3 ISTAT 24 mmol/L (24-28); VEN HCT ISTAT 26 % (36-40); VEN HGB ISTAT 8.8 g/dL (12-15); VEN ION CA ISTAT 1.06 mmol/L (1.13-1.32); VEN K ISTAT 6.3 mmol/L (3.5-5.0); VEN NA ISTAT 134 mmol/L (135-145); VEN O2 ISTAT 43 mmHg (20-40); VEN PCO2 ISTAT 40 mmHg (41-51); VEN PH ISTAT 7.39 (7.32-7.42); VEN SO2 ISTAT 78 %; VEN TCO2 ISTAT 26 mmol/L (21-32)
[2016-05-21] MEDS: MULTIVITAMIN with MINERAL TABLET. PO SCH (08:05)
[2016-05-21] MEDS: AMLODIPINE BESYLATE 10 MG TABLET PO SCH ×2 (08:06→09:00)
[2016-05-21] MEDS: SENNOSIDES/DOCUSATE 8.6/50MG TABLET. PO SCH (08:06)
[2016-05-21] MEDS: FERROUS SULFATE 325 MG TABLET PO SCH ×2 (08:08→16:18)
[2016-05-21] MEDS: LISINOPRIL 20 MG TABLET PO SCH ×2 (08:08→09:00)
[2016-05-21] MEDS: HYDRALAZINE 50 MG TABLET PO SCH ×3 (08:11→20:22)
[2016-05-21] MEDS: METOCLOPRAMIDE HCL 10 MG/2 ML VIAL. IV PRN (08:18)
--- NOTE | 2016-05-21 08:59 | RAD ---
Portable chest, 05/21/2016: History: Rib fractures, atelectasis Comparison is made to yesterday's study. The heart is enlarged. A vascular graft is again noted projected over the left innominate vein region. There is moderate bibasilar atelectasis/infiltrate with considerable worsening since yesterday's study. No pneumothorax or definite pleural fluid is seen. Right rib fractures are again identified. IMPRESSION: 1. Cardiomegaly. 2. Worsening moderate bibasilar atelectasis/infiltrate.
[2016-05-21] MEDS: POLYETHYLENE GLYCOL 3350 17 GM PACKET. PO SCH ×2 (09:00→21:00)
[2016-05-21] MEDS: METOPROLOL SUCC 24HR ER 100 MG TAB.ER.24H. PO SCH (09:00)
[2016-05-21 10:11] LABS: HEMATOCRIT 23.2 % (36.0-47.0); HEMOGLOBIN 7.6 g/dL (12.0-15.5)
[2016-05-21 10:19] LABS: INR 1.6 (0.8-1.1); PROTHROMBIN TIME PATIENT 18.1 SEC (11.7-14.0)
[2016-05-21 11:00] VITALS: BP 171/66
--- NOTE | 2016-05-21 11:36 | PDOC ---
PROGRESS NOTES Chief Complaint Chief Complaint 0. S/P code blue after hip replacement 1. Abdominal pain; chronic, unclear etiology 2. Narcotic dependence. 3. Hx osteomyelitis, and replaced hip hardware. 4. elevated Alk Phos; isolated. 5. ESRD: HD M/W/F 6. Anemia; severe, 2/2 ESRD. History of Present Illness History of Present Illness Patient transferred from the ICU. Complains of a lot of pain 2/2 to hip surgery and and rib fractures. Continue to complain of itchiness and requested an increase in Benadryl dose. Is awaiting surgery today; thrombectomy of the L arm. Discussed case with RN. Vitals Vitals Vital Signs Date Time Temp Pulse Resp B/P Pulse Ox O2 Delivery O2 Flow Rate FiO2 05/21/16 11:00 97.7 105 16 171/66 89 Nasal Cannula 2.0 97.7 Physical Exam General: Alert, Oriented X3, Cooperative Heart: Regular rate Lungs: Clear, Other (painful over R ribs, following last night's code/CPR) Abdomen: Normal bowel sounds Extremities: No clubbing, No edema Skin: No rashes Labs LABS Laboratory Tests Test 05/21/16 09:40 Hemoglobin 7.6g/dL (12.0-15.5) Hematocrit 23.2% (36.0-47.0) Mean Corpuscular Hemoglobin Concent 33g/dL (31-37) Prothrombin Time 18.1SEC (11.7-14.0) Prothromb Time International Ratio 1.6 (0.8-1.1) Review of Systems Review of Systems afebrile c/o pain in the hip and ribs c/o generalized weakness Assessment and Plan Assessmemt and Plan ASSESSMENT: 0. S/P code blue after hip replacement 1. Abdominal pain; chronic, unclear etiology 2. Narcotic dependence. 3. Hx osteomyelitis, and replaced hip hardware. 4. elevated Alk Phos; isolated. 5. ESRD: HD M/W/F 6. Anemia; severe, 2/2 ESRD. PLAN: - awaiting thrombectomy of the L arm today. - cont cardiac monitoring - HD MWF - cont wound care - recheck daily labs - PTOT - cont narcotics for hip and rib pain - IV Zofran for nausea - Benadryl 50 mg for itchiness Problems: Comment Review of Relevant I have reviewed the following items lynnette (where applicable) has been applied. Labs Laboratory Tests Test 05/20/16 04:10 05/20/16 04:40 05/21/16 09:40 White Blood Count 12.7x10^3/uL (4.0-11.0) Red Blood Count 2.54x10^6/uL (3.50-5.40) Hemoglobin 7.7g/dL (12.0-15.5) 7.6g/dL (12.0-15.5) Hematocrit 22.9% (36.0-47.0) 23.2% (36.0-47.0) Mean Corpuscular Volume 90fL (79-100) Mean Corpuscular Hemoglobin 30pg (25-35) Mean Corpuscular Hemoglobin Concent 34g/dL (31-37) 33g/dL (31-37) Red Cell Distribution Width 16.4% (11.5-14.5) Platelet Count 116x10^3/uL (140-400) Prothrombin Time 16.7SEC (11.7-14.0) 18.1SEC (11.7-14.0) Prothromb Time International Ratio 1.4 (0.8-1.1) 1.6 (0.8-1.1) Sodium Level 138mmol/L (136-145) Potassium Level 5.0mmol/L (3.5-5.1) Chloride Level 100mmol/L (98-107) Carbon Dioxide Level 25mmol/L (21-32) Anion Gap 13 (6-14) Blood Urea Nitrogen 51mg/dL (7-20) Creatinine 5.8mg/dL (0.6-1.0) Estimated GFR (Cockcroft-Gault) 8.8 Glucose Level 131mg/dL (70-99) Calcium Level 8.4mg/dL (8.5-10.1) Laboratory Tests Test 05/21/16 09:40 Hemoglobin 7.6g/dL (12.0-15.5) Hematocrit 23.2% (36.0-47.0) Mean Corpuscular Hemoglobin Concent 33g/dL (31-37) Prothrombin Time 18.1SEC (11.7-14.0) Prothromb Time International Ratio 1.6 (0.8-1.1) Medications Current Medications Ondansetron HCl (Zofran) 4 mg 1X ONCE IV Last administered on 05/15/16 19:17 ; Start 05/15/16 at 19:00; Stop 05/15/16 at 19:01; Status DC Morphine Sulfate 4 mg 1X ONCE IV Last administered on 05/15/16 19:19; Start 05/15/16 at 19:00; Stop 05/15/16 at 19:01; Status DC Hydralazine HCl (Apresoline) 10 mg 1X ONCE IVP Last administered on 05/15/16 19:21; Start 05/15/16 at 19:00; Stop 05/15/16 at 19:01; Status DC Lorazepam (Ativan) 1 mg 1X ONCE PO Last administered on 05/15/16 20:04; Start 05/15/16 at 19:45; Stop 05/15/16 at 19:46; Status DC Alprazolam (Xanax) 2 mg PRN TID PRN PO ANXIETY / AGITATION; Start 05/15/16 at 20:45; Stop 05/15/16 at 20:47; Status DC Amlodipine Besylate (Norvasc) 10 mg DAILY PO Last administered on 05/21/16 08: 06; Start 05/16/16 at 09:00 Hydralazine HCl (Apresoline) 50 mg TID PO Last administered on 05/21/16 08:11; Start 05/16/16 at 09:00 Ondansetron HCl (Zofran Odt) 4 mg PRN Q8HRS PRN PO NAUSEA; Start 05/15/16 at 20 :45; Stop 05/21/16 at 10:18; Status DC Oxycodone/ Acetaminophen (Percocet 7.5/ 325) 1 tab PRN Q8HRS PRN PO PAIN; Start 05/15/16 at 20:45; Status Cancel Metoprolol Succinate (Toprol Xl) 200 mg DAILY PO Last administered on 05/20/16 09:23; Start 05/16/16 at 09:00 Alprazolam (Xanax) 2 mg PRN TID PRN PO ANXIETY / AGITATION; Start 05/15/16 at 20:47 Morphine Sulfate 4 mg 1X ONCE IV Last administered on 05/15/16 21:13; Start 05/15/16 at 21:00; Stop 05/15/16 at 21:01; Status DC Ondansetron HCl (Zofran) 4 mg 1X ONCE IV Last administered on 05/15/16 21:08 ; Start 05/15/16 at 21:00; Stop 05/15/16 at 21:01; Status DC Labetalol HCl (Normodyne) 20 mg PRN Q6HRS PRN IVP HYPERTENSION, SEE COMMENTS Last administered on 05/20/16 04:29; Start 05/15/16 at 23:30 Lorazepam (Ativan) 1 mg PRN Q6HRS PRN IV ANXIETY / AGITATION Last administered on 05/16/16 20:22; Start 05/15/16 at 23:30; Stop 05/16/16 at 22:44; Status DC Morphine Sulfate 2 mg PRN Q2HR PRN IV PAIN Last administered on 05/16/16 10:52 ; Start 05/15/16 at 23:30; Stop 05/16/16 at 11:42; Status DC Morphine Sulfate 4 mg PRN Q2HR PRN IV PAIN; Start 05/15/16 at 23:30; Stop 05/16 at 11:42; Status DC Diphenhydramine HCl (Benadryl) 50 mg PRN Q6HRS PRN IVP ITCHING Last administered on 05/16/16 20:23; Start 05/15/16 at 23:30; Stop 05/16/16 at 22:44 ; Status DC Morphine Sulfate 1 mg PRN Q2HR PRN IV PAIN Last administered on 05/17/16 18:38 ; Start 05/16/16 at 11:45; Stop 05/21/16 at 10:18; Status DC Diphenhydramine HCl (Benadryl) 25 mg PRN Q8HRS PRN IVP ITCHING Last administered on 05/18/16 04:54; Start 05/16/16 at 23:30; Stop 05/18/16 at 15:51 ; Status DC Lorazepam (Ativan) 0.5 mg PRN Q8HRS PRN IV ANXIETY / AGITATION Last administered on 05/21/16 06:28; Start 05/16/16 at 23:30 Metoclopramide HCl (Reglan) 5 mg PRN Q8HRS PRN IV NAUSEA/VOMITING Last administered on 05/21/16 08:18; Start 05/16/16 at 22:45 Polyethylene Glycol (miraLAX PACKET) 17 gm BID PO ; Start 05/17/16 at 09:00 Lidocaine HCl 2 ml 2 ml STK-MED ONCE .ROUTE ; Start 05/17/16 at 11:20; Stop at 11:21; Status DC Sodium Chloride (Iv Sodium Chloride 0.9% 1000ml Bag) 1,000 ml @ 1,000 mls/hr Q1H PRN IV hypotension; Start 05/17/16 at 12:42; Stop 05/17/16 at 18:41; Status DC Diphenhydramine HCl (Benadryl) 25 mg 1X PRN PRN IV ITCHING; Start 05/17/16 at 12:45; Stop 05/18/16 at 12:44; Status DC Diphenhydramine HCl (Benadryl) 25 mg 1X PRN PRN IV ITCHING; Start 05/17/16 at 12:45; Stop 05/18/16 at 12:44; Status DC Info (PHARMACY MONITORING -- do not chart) 1 each PRN DAILY PRN MC SEE COMMENTS ; Start 05/17/16 at 12:45; Status UNV Info 1 each 1 each PRN DAILY PRN MC SEE COMMENTS; Start 05/17/16 at 12:45; Status UNV Morphine Sulfate/ Ketorolac Tromethamine/ Ropivacaine/ Epinephrine HCl/ Sodium Chloride (Morphine 5mg Syringe/Toradol/ Naropin 0.5%/ Adrenalin/Iv Sodium Chloride 0.9% 100ml) 100.5 ml @ 100.5 mls/ hr 1X PERIOP ONCE INT ART Last administered on 05/18/16 08:20; Start 05/18/16 at 06:00; Stop 05/18/16 at 06:59 ; Status DC Ondansetron HCl (Zofran) 4 mg PRN Q6HRS PRN IV Nausea; Start 05/18/16 at 07:00 ; Stop 05/19/16 at 06:59; Status DC Fentanyl Citrate (Fentanyl 2ml Vial) 25 mcg PRN Q5MIN PRN IV MILD PAIN Last administered on 05/18/16 16:42; Start 05/18/16 at 07:00; Stop 05/19/16 at 06:59 ; Status DC Fentanyl Citrate (Fentanyl 2ml Vial) 50 mcg PRN Q5MIN PRN IV MODERATE PAIN Last administered on 05/19/16 02:10; Start 05/18/16 at 07:00; Stop 05/19/16 at 06 :59; Status DC Morphine Sulfate 1 mg PRN Q10MIN PRN IV SEVERE PAIN; Start 05/18/16 at 07:00; Stop 05/19/16 at 06:59; Status DC Lidocaine HCl 2 ml 1X PRN PRN ID IV START; Start 05/18/16 at 07:00; Stop at 06:59; Status DC Hydromorphone HCl (Dilaudid) 0.5 mg PRN Q10MIN PRN IV SEVERE PAIN, Second choice Last administered on 05/19/16 00:53; Start 05/18/16 at 07:00; Stop at 06:59; Status DC Prochlorperazine Edisylate 5 mg 5 mg PACU PRN PRN IV NAUSEA; Start 05/18/16 at 07:00; Stop 05/19/16 at 06:59; Status DC Sodium Chloride (Iv Sodium Chloride 0.9% 1000ml Bag) 1,000 ml @ 30 mls/hr Q24H IV ; Start 05/18/16 at 07:00; Stop 05/19/16 at 07:48; Status DC Warfarin Sodium (Coumadin) 5 mg 1X ONCE PO Last administered on 05/17/16 16: 31; Start 05/17/16 at 17:00; Stop 05/17/16 at 17:01; Status DC Acetaminophen/ Hydrocodone Bitart (Lortab 7.5/325) 2 tab 1X ONCE PO ; Start at 05:30; Stop 05/18/16 at 05:31; Status Cancel Acetaminophen/ Hydrocodone Bitart 2 tab 2 tab 1X PREOP PRN PO PRIOR TO PROCEDURE; Start 05/18/16 at 06:00; Stop 05/18/16 at 18:00; Status DC Cefazolin Sodium/ Dextrose 50 ml @ 100 mls/hr 1X PREOP PRN IV PRIOR TO PROCEDURE; Start 05/18/16 at 06:00; Stop 05/18/16 at 18:00; Status DC Morphine Sulfate/ Ketorolac Tromethamine/ Ropivacaine/ Epinephrine HCl/ Sodium Chloride (Morphine 5mg Syringe/Toradol/ Naropin 0.5%/ Adrenalin/Iv Sodium Chloride 0.9% 50ml) 100.5 ml @ 100.5 mls/ hr 1X PERIOP ONCE INT ART ; Start at 06:00; Stop 05/18/16 at 06:59; Status Cancel Dexamethasone Sodium Phosphate (Decadron) 20 mg STK-MED ONCE .ROUTE ; Start at 06:57; Stop 05/18/16 at 06:58; Status DC Ondansetron HCl 4 mg 4 mg STK-MED ONCE .ROUTE ; Start 05/18/16 at 06:57; Stop at 06:58; Status DC Propofol (Diprivan) 20 ml @ As Directed STK-MED ONCE IV ; Start 05/18/16 at 06: 57; Stop 05/18/16 at 06:58; Status DC Lidocaine HCl 100 mg STK-MED ONCE .ROUTE ; Start 05/18/16 at 06:57; Stop at 06:58; Status DC Fentanyl Citrate (Fentanyl 5ml Vial) 250 mcg STK-MED ONCE .ROUTE ; Start at 06:57; Stop 05/18/16 at 06:58; Status DC Midazolam HCl (Versed) 2 mg STK-MED ONCE .ROUTE ; Start 05/18/16 at 06:58; Stop 05/18/16 at 06:59; Status DC Rocuronium Custer 50 mg 50 mg STK-MED ONCE .ROUTE ; Start 05/18/16 at 06:58; Stop 05/18/16 at 06:59; Status DC Acetaminophen 100 ml @ As Directed STK-MED ONCE IV ; Start 05/18/16 at 07:13; Stop 05/18/16 at 07:14; Status DC Sodium Chloride 500 ml @ 30 mls/hr [id number] IV Last administered on 05/18/16t 07:45; Start 05/18/16 at 07:45; Stop 05/19/16 at 07:48; Status DC Cefazolin Sodium (Ancef 1gm Ivpb For Omni) 50 ml @ As Directed STK-MED ONCE IV ; Start 05/18/16 at 07:45; Stop 05/18/16 at 07:46; Status DC Fentanyl Citrate (Fentanyl 5ml Vial) 250 mcg STK-MED ONCE .ROUTE ; Start at 08:27; Stop 05/18/16 at 08:28; Status DC Rocuronium Custer (Zemuron) 50 mg STK-MED ONCE .ROUTE ; Start 05/18/16 at 08:27 ; Stop 05/18/16 at 08:28; Status DC Morphine Sulfate 5 mg 5 mg STK-MED ONCE .ROUTE ; Start 05/18/16 at 08:59; Stop 05/18/16 at 09:00; Status DC Cefazolin Sodium (Ancef 1gm Ivpb For Omni) 50 ml @ 100 mls/hr 1X PREOP PRN IV PER PROTOCOL Last administered on 05/18/16 08:06; Start 05/18/16 at 09:30; Stop 05/19/16 at 09:29; Status DC Lisinopril (Prinivil) 20 mg DAILY PO Last administered on 05/21/16 08:08; Start 05/18/16 at 11:30 Albuterol Sulfate (Ventolin Neb Soln) 2.5 mg STK-MED ONCE .ROUTE ; Start at 11:24; Stop 05/18/16 at 11:25; Status DC Morphine Sulfate 10 mg STK-MED ONCE .ROUTE ; Start 05/18/16 at 11:55; Stop 05/18 at 11:56; Status DC Cefazolin Sodium/ Dextrose 2 gm 2 gm STK-MED ONCE IV ; Start 05/18/16 at 07:30; Stop 05/18/16 at 12:41; Status DC Cefazolin Sodium (Ancef 1gm Ivpb For Omni) 50 ml @ As Directed STK-MED ONCE IV ; Start 05/18/16 at 13:02; Stop 05/18/16 at 13:03; Status DC Fentanyl Citrate (Fentanyl 5ml Vial) 250 mcg STK-MED ONCE .ROUTE ; Start at 13:27; Stop 05/18/16 at 13:28; Status DC Phenylephrine HCl 1 mg STK-MED ONCE IV ; Start 05/18/16 at 13:58; Stop 05/18/16 at 13:59; Status DC Insulin Human Regular (Novolin R Vial) 10 unit 1X ONCE IV ; Start 05/18/16 at 14:15; Stop 05/18/16 at 14:16; Status DC Acetaminophen/ Hydrocodone Bitart (Lortab 7.5/325) 1 tab PRN Q3HRS PRN PO PAIN ; Start 05/18/16 at 15:45; Stop 05/21/16 at 10:18; Status DC Acetaminophen/ Hydrocodone Bitart (Lortab 10/325) 1 tab PRN Q3HRS PRN PO PAIN; Start 05/18/16 at 15:45 Tramadol HCl (Ultram) 50 mg PRN QID PRN PO PAIN; Start 05/18/16 at 15:45; Stop 05/21/16 at 10:18; Status DC Oxycodone/ Acetaminophen (Percocet 5/325) 1 tab PRN Q3HRS PRN PO PAIN; Start at 15:45 Oxycodone/ Acetaminophen (Percocet 7.5/ 325) 1 tab PRN Q3HRS PRN PO PAIN; Start 05/18/16 at 15:45 Tramadol HCl (Ultram) 100 mg PRN Q3HRS PRN PO PAIN; Start 05/18/16 at 15:45 Morphine Sulfate 2 mg PRN Q1HR PRN IV PAIN; Start 05/18/16 at 15:45; Stop at 10:40; Status DC Fentanyl Citrate (Fentanyl 2ml Vial) 25 mcg PRN Q1HR PRN IV PAIN Last administered on 05/20/16 21:37; Start 05/18/16 at 15:45; Stop 05/21/16 at 10:18; Status DC Diphenhydramine HCl (Benadryl) 25 mg PRN Q6HRS PRN IV ITCHING Last administered on 05/21/16 10:08; Start 05/18/16 at 15:45; Stop 05/21/16 at 10:43; Status DC Warfarin Sodium (Coumadin Per Pharmacy) 1 each PRN DAILY PRN MC SEE COMMENTS Last administered on 05/20/16 12:25; Start 05/18/16 at 15:45 Multivitamins/ Calcium (Thera M Plus) 1 tab DAILY PO Last administered on 08:05; Start 05/19/16 at 09:00 Senna/Docusate Sodium (Senna Plus) 1 tab DAILY PO Last administered on 08:06; Start 05/19/16 at 09:00 Ferrous Sulfate 325 mg 325 mg BIDWMEALS PO Last administered on 05/21/16 08:08 ; Start 05/18/16 at 17:00 Dextrose/Sodium Chloride (Iv D5% - 1/2 NS) 1,000 ml @ 100 mls/hr Q10H IV ; Start 05/18/16 at 15:31; Stop 05/19/16 at 07:48; Status DC Magnesium Hydroxide (Milk Of Magnesia) 2,400 mg 1X PRN PRN PO CONSTIPATION; Start 05/19/16 at 06:00; Stop 05/20/16 at 05:59; Status DC Bisacodyl (Dulcolax Supp) 10 mg 1X PRN PRN [place] CONSTIPATION; Start 05/19/16 at 16 :00; Stop 05/20/16 at 15:59; Status DC Acetaminophen (Tylenol) 650 mg PRN Q4HRS PRN PO MILD PAIN / TEMP; Start at 15:45 Zolpidem Tartrate (Ambien) 5 mg PRN QHS PRN PO INSOMNIA, MAY REPEAT IN 1HR Last administered on 05/19/16 21:06; Start 05/18/16 at 15:45 Calcium Carbonate/ Glycine (Tums) 500 mg PRN QID PRN PO INDIGESTION; Start at 15:45 Morphine Sulfate 4 mg PRN Q1HR PRN IV PAIN Last administered on 05/21/16 08:11 ; Start 05/18/16 at 15:45; Stop 05/21/16 at 10:40; Status DC Morphine Sulfate 6 mg PRN Q1HR PRN IV PAIN Last administered on 05/20/16 20:04 ; Start 05/18/16 at 15:45; Stop 05/21/16 at 10:18; Status DC Morphine Sulfate 8 mg PRN Q1HR PRN IV PAIN; Start 05/18/16 at 15:45; Stop at 10:18; Status DC Sodium Chloride (Normal Saline Flush) 10 ml QSHIFT PRN IV AFTER MEDS AND BLOOD DRAWS; Start 05/18/16 at 15:45; Stop 05/21/16 at 07:32; Status DC Fentanyl Citrate (Fentanyl 2ml Vial) 50 mcg PRN Q1HR PRN IV PAIN Last administered on 05/21/16 10:09; Start 05/18/16 at 15:45; Stop 05/21/16 at 10:40; Status DC Prochlorperazine Edisylate (Compazine) 10 mg PRN Q4HRS PRN IV NAUSEA/VOMITING; Start 05/18/16 at 15:45 Dextrose 12.5 gm 12.5 gm PRN Q15MIN PRN IV SEE COMMENTS; Start 05/18/16 at 15: 45 Cefazolin Sodium/ Sodium Chloride (Ancef/Iv Sodium Chloride 0.9% 50ml) 50 ml @ 100 mls/hr Q6H IV Last administered on 05/19/16 05:00; Start 05/18/16 at 16:00 ; Stop 05/19/16 at 04:29; Status DC Warfarin Sodium (Coumadin) 5 mg 1X WARF ONCE PO ; Start 05/18/16 at 16:00; Stop 05/18/16 at 16:01; Status DC Lidocaine/Sodium Bicarbonate 20 ml 20 ml STK-MED ONCE IJ ; Start 05/18/16 at 16: 51; Stop 05/18/16 at 16:52; Status DC Heparin Sodium/ Sodium Chloride 500 ml @ As Directed STK-MED ONCE .ROUTE ; Start 05/18/16 at 16:51; Stop 05/18/16 at 16:52; Status DC Heparin Sodium (Porcine) 19784 unit 10,000 unit STK-MED ONCE .ROUTE ; Start at 16:52; Stop 05/18/16 at 16:53; Status DC Sodium Chloride (Iv Sodium Chloride 0.9% 1000ml Bag) 1,000 ml @ 1,000 mls/hr Q1H PRN IV hypotension; Start 05/18/16 at 17:23; Stop 05/18/16 at 23:22; Status DC Diphenhydramine HCl (Benadryl) 75 mg 1X PRN PRN IV ITCHING; Start 05/18/16 at 17:30; Stop 05/19/16 at 17:29; Status DC Info (PHARMACY MONITORING -- do not chart) 1 each PRN DAILY PRN MC SEE COMMENTS ; Start 05/18/16 at 17:30 Info (PHARMACY MONITORING -- do not chart) 1 each PRN DAILY PRN MC SEE COMMENTS ; Start 05/18/16 at 17:30; Status UNV Lidocaine/Sodium Bicarbonate (Buffered Lidocaine 1%) 3 ml 1X ONCE IJ Last administered on 05/18/16 17:34; Start 05/18/16 at 17:30; Stop 05/18/16 at 17:34 ; Status DC Heparin Sodium/ Sodium Chloride 60 unit 1X ONCE IV ; Start 05/18/16 at 17:30; Stop 05/18/16 at 17:34; Status DC Insulin Aspart (Novolog Vial) 10 unit 1X ONCE SQ ; Start 05/18/16 at 18:30; Stop 05/18/16 at 18:31; Status Cancel Insulin Human Regular 10 unit 10 unit 1X ONCE IV ; Start 05/18/16 at 19:00; Stop 05/18/16 at 19:01; Status DC Propofol (Diprivan) 100 ml @ 0 mls/hr CONT PRN IV . Last administered on 02:10; Start 05/18/16 at 19:00; Stop 05/21/16 at 07:32; Status DC Darbepoetin Jude (Aranesp) 60 mcg [id number] SQ ; Start 05/19/16 at 21:00 Diphenhydramine HCl (Benadryl) 50 mg 1X ONCE IM Last administered on 05/19/16 13:27; Start 05/19/16 at 13:15; Stop 05/19/16 at 13:16; Status DC Warfarin Sodium (Coumadin - No Dose Today) 1 each 1X WARF ONCE MC ; Start at 16:00; Stop 05/19/16 at 16:01; Status DC Hydralazine HCl (Apresoline) 10 mg PRN Q4HRS PRN IVP ELEVATED BP, SEE COMMENTS Last administered on 05/19/16 23:57; Start 05/19/16 at 16:15 Amlodipine Besylate (Norvasc) 10 mg 1X ONCE PO Last administered on 05/19/16 17:34; Start 05/19/16 at 17:30; Stop 05/19/16 at 17:31; Status DC Lisinopril (Prinivil) 20 mg 1X ONCE PO Last administered on 05/19/16 17:34; Start 05/19/16 at 17:30; Stop 05/19/16 at 17:31; Status DC Metoprolol Succinate (Toprol Xl) 200 mg 1X ONCE PO Last administered on 17:34; Start 05/19/16 at 17:30; Stop 05/19/16 at 17:31; Status DC Lidocaine HCl 2 ml 2 ml STK-MED ONCE .ROUTE ; Start 05/20/16 at 08:19; Stop at 08:20; Status DC Sodium Chloride (Iv Sodium Chloride 0.9% 1000ml Bag) 1,000 ml @ 1,000 mls/hr Q1H PRN IV hypotension; Start 05/20/16 at 09:24; Stop 05/20/16 at 15:23; Status DC Diphenhydramine HCl (Benadryl) 25 mg 1X PRN PRN IV ITCHING Last administered on 05/20/16 09:36; Start 05/20/16 at 09:30; Stop 05/21/16 at 07:32; Status DC Diphenhydramine HCl (Benadryl) 25 mg 1X PRN PRN IV ITCHING Last administered on 05/20/16 09:59; Start 05/20/16 at 09:30; Stop 05/21/16 at 07:32; Status DC Sodium Chloride (Normal Saline Flush) 10 ml 1X PRN PRN IV AP catheter pack; Start 05/20/16 at 09:30; Stop 05/21/16 at 09:29; Status DC Sodium Chloride (Normal Saline Flush) 10 ml 1X PRN PRN IV VOICE PROFESSOR catheter pack; Start 05/20/16 at 09:30; Stop 05/21/16 at 09:29; Status DC Info (PHARMACY MONITORING -- do not chart) 1 each PRN DAILY PRN MC SEE COMMENTS ; Start 05/20/16 at 09:30; Stop 05/20/16 at 09:31; Status DC Info (PHARMACY MONITORING -- do not chart) 1 each PRN DAILY PRN MC SEE COMMENTS ; Start 05/20/16 at 09:30; Status Cancel Warfarin Sodium (Coumadin) 3 mg 1X WARF ONCE PO Last administered on 05/20/16 16:26; Start 05/20/16 at 16:00; Stop 05/20/16 at 16:01; Status DC Dextrose 25 gm STK-MED ONCE IV ; Start 05/19/16 at 12:00; Stop 05/20/16 at 16:10; Status DC Epinephrine HCl 1 mg STK-MED ONCE .ROUTE ; Start 05/19/16 at 12:00; Stop 05/20/16 at 16:10; Status DC Sodium Bicarbonate 50 meq STK-MED ONCE .ROUTE ; Start 05/19/16 at 12:00; Stop 05/20/16 at 16:10; Status DC Diphenhydramine HCl (Benadryl) 50 mg 1X ONCE IVP Last administered on t 04:02; Start 05/21/16 at 04:00; Stop 05/21/16 at 10:18; Status DC Lidocaine HCl (Xylocaine-Mpf 1% Vial) 2 ml STK-MED ONCE .ROUTE ; Start 05/20/16 at 08:00; Stop 05/21/16 at 08:00; Status DC Fentanyl Citrate (Fentanyl 2ml Vial) 50 mcg PRN Q3HRS PRN IV PAIN; Start at 10:27 Morphine Sulfate 2 mg PRN Q3HRS PRN IV PAIN; Start 05/21/16 at 10:27 Morphine Sulfate 4 mg PRN Q3HRS PRN IV PAIN; Start 05/21/16 at 10:27 Diphenhydramine HCl (Benadryl) 50 mg PRN Q6HRS PRN IVP itching; Start 05/21/16 at 10:30 Ondansetron HCl (Zofran) 4 mg PRN Q6HRS PRN IV NAUSEA/VOMITING; Start 05/21/16 at 11:15 Active Scripts Active Zofran Odt (Ondansetron) 4 Mg Tab.rapdis 1 Tab SL Q8HRS PRN Reported Percocet 7.5-325 Mg Tablet (Oxycodone/Acetaminophen) 1 Each Tablet 1 Tab PO PRN Q8HRS PRN Xanax (Alprazolam) 0.25 Mg Tablet 2 Mg PO TID PRN Metoprolol Succinate ( Xl ) (Metoprolol Succinate) 200 Mg Tab.er.24h 1 Tab PO DAILY Hydralazine Hcl 50 Mg Tablet 1 Tab PO TID Amlodipine Besylate 10 Mg Tablet 1 Tab PO DAILY Vitals/I & O Vital Sign - Last 24 Hours 3/2/17 3/2/17 3/2/17 3/2/17 12:00 12:31 13:36 14:21 Temp 97.8 97.8 Pulse 92 91 Resp 25 B/P 191/81 191/81 Pulse Ox 97 98 98 O2 Delivery Nasal Cannula Nasal Cannula Nasal Cannula O2 Flow Rate 2.0 2.0 05/20/16 05/20/16 05/20/16 05/20/16 15:00 15:33 16:29 18:16 Temp 98.5 98.5 Pulse 100 Resp 16 B/P 147/45 Pulse Ox 98 98 98 98 O2 Delivery Nasal Cannula Nasal Cannula Nasal Cannula Room Air O2 Flow Rate 2.0 05/20/16 05/20/16 05/20/16 05/20/16 19:56 20:00 20:04 21:37 Temp 100.3 100.3 Pulse 105 Resp 16 B/P 137/69 Pulse Ox 91 O2 Delivery Nasal Cannula Room Air Room Air Room Air O2 Flow Rate 2.0 05/20/16 05/20/16 05/20/16 05/20/16 21:38 21:38 22:27 22:34 Pulse 105 B/P 137/69 O2 Delivery Room Air Room Air Room Air 05/20/16 05/21/16 05/21/16 05/21/16 23:00 00:28 01:46 03:00 Temp 99.1 99.2 99.1 99.2 Pulse 102 103 Resp 16 16 B/P 139/92 141/64 Pulse Ox 90 90 O2 Delivery Nasal Cannula Room Air Nasal Cannula Nasal Cannula O2 Flow Rate 2.0 2.0 05/21/16 05/21/16 05/21/16 05/21/16 03:27 04:48 06:28 07:00 Temp 97.3 97.3 Pulse 100 Resp 16 B/P 155/52 Pulse Ox 89 O2 Delivery Nasal Cannula Nasal Cannula Nasal Cannula Nasal Cannula O2 Flow Rate 2.0 05/21/16 05/21/16 05/21/16 05/21/16 07:15 07:30 08:06 08:08 Pulse 100 100 B/P 155/52 155/52 Pulse Ox 90 O2 Delivery Room Air Room Air O2 Flow Rate 2.0 2.0 05/21/16 05/21/16 05/21/16 05/21/16 08:11 08:11 08:45 09:00 Pulse 100 100 B/P 155/52 155/52 Pulse Ox 90 90 O2 Delivery Nasal Cannula Room Air O2 Flow Rate 2.0 2.0 05/21/16 05/21/16 10:09 11:00 Temp 97.7 97.7 Pulse 105 Resp 16 B/P 171/66 Pulse Ox 90 89 O2 Delivery Room Air Nasal Cannula O2 Flow Rate 2.0 Intake and Output 05/20/16 05/20/16 05/21/16 15:00 23:00 07:00 Intake Total 420 ml Output Total 0 ml 0 ml Balance 0 ml 420 ml KINGSLEY EVERETT III DO May 21, 2016 11:36
--- NOTE | 2016-05-21 12:48 | PDOC ---
Renal-Progress Notes Subjective Notes Notes HIP PAIN History of Present Illness Hx of present illness STABLE Vitals Vitals Vital Signs Date Time Temp Pulse Resp B/P Pulse Ox O2 Delivery O2 Flow Rate FiO2 05/21/16 12:40 89 Nasal Cannula 2.0 05/21/16 11:00 97.7 105 16 171/66 97.7 Weight Weight [ ] I.O. Intake and Output Intake and Output 05/21/16 07:00 Intake Total 420 ml Output Total 0 ml Balance 420 ml Intake Oral 420 ml Output Urine Total 0 ml Labs Labs Laboratory Tests Test 05/21/16 09:40 Hemoglobin 7.6g/dL (12.0-15.5) Hematocrit 23.2% (36.0-47.0) Mean Corpuscular Hemoglobin Concent 33g/dL (31-37) Prothrombin Time 18.1SEC (11.7-14.0) Prothromb Time International Ratio 1.6 (0.8-1.1) Review of Systems Constitutional: yes: alert, oriented, weakness Ears/Nose/Throat: Yes: no symptom reported Eyes: Yes: no symptom reported Cardiovascular: Yes no symptom reported Gastrointestional: Yes: no symptom reported Skin: Yes no symptom reported Physical Exam General Appearance: no apparent distress Skin: warm Respiratory: bilateral CTA Heart: S1S2 Abdomen: soft, bowel sounds present Genitourinary: bladder flat Extremities: pulses present Neurology: alert Musculoskeletal: Weakness Assessment Assessment IMP S/P HIP ARTHROPLASTY ANEMIA ESRD HTN RESP FAILURE HYPERKALEMIA-BETTER THROMBOSED LEFT ARM GRAFT PLAN HD TOMORROW WILL HAVE IR DO LEFT ARM GRAFT THROMBECTOMY HAVE D/W IR RUSLAN TEMPLE MD May 21, 2016 12:48
[2016-05-21 15:00] VITALS: BP 161/55
[2016-05-21] MEDS ORDERED: WARFARIN 3 MG TABLET. PO ONE (16:00)
[2016-05-21] MEDS: DIPHENHYDRAMINE 50 MG/ML VIAL IVP PRN (17:52)
[2016-05-21 19:34] VITALS: BP 178/62
[2016-05-21 23:46] VITALS: BP 174/40
[2016-05-22] MEDS: MORPHINE SULFATE 4 MG/ML DISP.SYRIN. IV PRN ×8 (00:38→23:30)
[2016-05-22 03:00] VITALS: BP 146/106
[2016-05-22] MEDS: FENTANYL PF 100 MCG/2 ML VIAL. IV PRN ×8 (03:09→22:45)
[2016-05-22 05:10] LABS: BASO # 0.1 x10^3/uL (0.0-0.2); BASO % 1 % (0-3); EOS % 3 % (0-3); HEMATOCRIT 22.2 % (36.0-47.0); HEMOGLOBIN 7.2 g/dL (12.0-15.5); LYMPH # 0.8 x10^3/uL (1.0-4.8); LYMPH % 7 % (24-48); MEAN CORPUSCULAR HEMOGLOBIN 31 pg (25-35); MEAN CORPUSCULAR HGB CONC 32 g/dL (31-37); MEAN CORPUSCULAR VOLUME 94 fL (79-100); MONO % 6 % (0-9); NEUT % 83 % (31-73); PLATELET COUNT 171 x10^3/uL (140-400); RED BLOOD COUNT 2.36 x10^6/uL (3.50-5.40); RED CELL DISTRIBUTION WIDTH 16.8 % (11.5-14.5); WHITE BLOOD COUNT 11.9 x10^3/uL (4.0-11.0)
[2016-05-22 05:18] LABS: INR 1.9 (0.8-1.1); PROTHROMBIN TIME PATIENT 21.1 SEC (11.7-14.0)
[2016-05-22 05:26] LABS: CALCIUM 8.8 mg/dL (8.5-10.1); CREATININE 6.3 mg/dL (0.6-1.0)
[2016-05-22] MEDS: LORAZEPAM 2 MG/ML VIAL IV PRN ×3 (06:07→22:45)
[2016-05-22] MEDS: DIPHENHYDRAMINE 50 MG/ML VIAL IVP PRN ×4 (06:07→23:31)
[2016-05-22 07:00] VITALS: BP 179/59
--- NOTE | 2016-05-22 07:52 | PDOC ---
ORTHO PROGRESS NOTES Subjective c/o pain at her hip and ribs, largely unchanged. Has been up with PT. Not much appetite, but tolerating PO. New new complaints. Vitals Vital Signs Date Time Temp Pulse Resp B/P Pulse Ox O2 Delivery O2 Flow Rate FiO2 05/22/16 06:44 Nasal Cannula 05/22/16 06:07 92 2.0 05/22/16 03:00 99.1 116 17 146/106 99.1 Labs Laboratory Tests Test 05/21/16 09:40 05/22/16 04:50 Hemoglobin 7.6g/dL (12.0-15.5) 7.2g/dL (12.0-15.5) Hematocrit 23.2% (36.0-47.0) 22.2% (36.0-47.0) Mean Corpuscular Hemoglobin Concent 33g/dL (31-37) 32g/dL (31-37) Prothrombin Time 18.1SEC (11.7-14.0) 21.1SEC (11.7-14.0) Prothromb Time International Ratio 1.6 (0.8-1.1) 1.9 (0.8-1.1) White Blood Count 11.9x10^3/uL (4.0-11.0) Red Blood Count 2.36x10^6/uL (3.50-5.40) Mean Corpuscular Volume 94fL (79-100) Mean Corpuscular Hemoglobin 31pg (25-35) Red Cell Distribution Width 16.8% (11.5-14.5) Platelet Count 171x10^3/uL (140-400) Neutrophils (%) (Auto) 83% (31-73) Lymphocytes (%) (Auto) 7% (24-48) Monocytes (%) (Auto) 6% (0-9) Eosinophils (%) (Auto) 3% (0-3) Basophils (%) (Auto) 1% (0-3) Neutrophils # (Auto) 9.9x10^3uL (1.8-7.7) Lymphocytes # (Auto) 0.8x10^3/uL (1.0-4.8) Monocytes # (Auto) 0.8x10^3/uL (0.0-1.1) Eosinophils # (Auto) 0.3x10^3/uL (0.0-0.7) Basophils # (Auto) 0.1x10^3/uL (0.0-0.2) Sodium Level 137mmol/L (136-145) Potassium Level 5.0mmol/L (3.5-5.1) Chloride Level 99mmol/L (98-107) Carbon Dioxide Level 25mmol/L (21-32) Anion Gap 13 (6-14) Blood Urea Nitrogen 48mg/dL (7-20) Creatinine 6.3mg/dL (0.6-1.0) Estimated GFR (Cockcroft-Gault) 8.0 Glucose Level 108mg/dL (70-99) Calcium Level 8.8mg/dL (8.5-10.1) Laboratory Tests Test 05/21/16 09:40 05/22/16 04:50 Hemoglobin 7.6g/dL (12.0-15.5) 7.2g/dL (12.0-15.5) Hematocrit 23.2% (36.0-47.0) 22.2% (36.0-47.0) Mean Corpuscular Hemoglobin Concent 33g/dL (31-37) 32g/dL (31-37) Prothrombin Time 18.1SEC (11.7-14.0) 21.1SEC (11.7-14.0) Prothromb Time International Ratio 1.6 (0.8-1.1) 1.9 (0.8-1.1) White Blood Count 11.9x10^3/uL (4.0-11.0) Red Blood Count 2.36x10^6/uL (3.50-5.40) Mean Corpuscular Volume 94fL (79-100) Mean Corpuscular Hemoglobin 31pg (25-35) Red Cell Distribution Width 16.8% (11.5-14.5) Platelet Count 171x10^3/uL (140-400) Neutrophils (%) (Auto) 83% (31-73) Lymphocytes (%) (Auto) 7% (24-48) Monocytes (%) (Auto) 6% (0-9) Eosinophils (%) (Auto) 3% (0-3) Basophils (%) (Auto) 1% (0-3) Neutrophils # (Auto) 9.9x10^3uL (1.8-7.7) Lymphocytes # (Auto) 0.8x10^3/uL (1.0-4.8) Monocytes # (Auto) 0.8x10^3/uL (0.0-1.1) Eosinophils # (Auto) 0.3x10^3/uL (0.0-0.7) Basophils # (Auto) 0.1x10^3/uL (0.0-0.2) Sodium Level 137mmol/L (136-145) Potassium Level 5.0mmol/L (3.5-5.1) Chloride Level 99mmol/L (98-107) Carbon Dioxide Level 25mmol/L (21-32) Anion Gap 13 (6-14) Blood Urea Nitrogen 48mg/dL (7-20) Creatinine 6.3mg/dL (0.6-1.0) Estimated GFR (Cockcroft-Gault) 8.0 Glucose Level 108mg/dL (70-99) Calcium Level 8.8mg/dL (8.5-10.1) Notes A and A RLE: DP2+ wiggles toes no edema dressing clean and dry Assessment and Plan R SULAIMAN revision ok to WBAT, PT/OT no new recs per IGNACIO Marie II, MD May 22, 2016 07:52
[2016-05-22] MEDS: SENNOSIDES/DOCUSATE 8.6/50MG TABLET. PO SCH (08:42)
[2016-05-22] MEDS: POLYETHYLENE GLYCOL 3350 17 GM PACKET. PO SCH ×2 (08:42→20:33)
[2016-05-22] MEDS: MULTIVITAMIN with MINERAL TABLET. PO SCH (08:43)
[2016-05-22] MEDS: AMLODIPINE BESYLATE 10 MG TABLET PO SCH (08:43)
[2016-05-22] MEDS: HYDRALAZINE 50 MG TABLET PO SCH ×3 (08:43→20:33)
[2016-05-22] MEDS: LISINOPRIL 20 MG TABLET PO SCH (08:43)
[2016-05-22] MEDS: METOPROLOL SUCC 24HR ER 100 MG TAB.ER.24H. PO SCH (08:44)
[2016-05-22] MEDS: FERROUS SULFATE 325 MG TABLET PO SCH ×2 (08:44→17:44)
[2016-05-22] MEDS ORDERED: IV NORMAL SALINE 1000ML BAG 1,000 ML IV PRN (09:36)
[2016-05-22] MEDS ORDERED: DIPHENHYDRAMINE 50 MG/ML VIAL IV PRN (09:45)
[2016-05-22] MEDS ORDERED: DIALYSIS PATIENT. MC PRN ×2 (09:45)
[2016-05-22] MEDS ORDERED: 0.9 % SODIUM CHLORIDE 10 ML DISP.SYRIN. IV PRN ×2 (09:45)
--- NOTE | 2016-05-22 10:07 | RAD ---
Examination: Single frontal view of the chest History: History of rib fractures follow-up Comparison: 05/21/2016 Findings: Vascular graft identified in the left innominate vein region grossly appears similar to prior exam. Mild cardiomegaly. Right-sided fractures are again identified. Bibasal lung airspace opacities likely atelectasis or infiltrates grossly similar to prior exam.. Impression: 1. Unchanged bibasal lung airspace opacities likely infiltrates or atelectasis grossly similar to prior exam. 2. Mild displaced right hip fractures again identified.
--- NOTE | 2016-05-22 12:05 | PDOC ---
PROGRESS NOTES Chief Complaint Chief Complaint 0. S/P code blue after hip replacement 1. Abdominal pain; chronic, unclear etiology 2. Narcotic dependence. 3. Hx osteomyelitis, and replaced hip hardware. 4. elevated Alk Phos; isolated. 5. ESRD: HD M/W/F 6. Anemia; severe, 2/2 ESRD. History of Present Illness History of Present Illness Patient lying down in bed when evaluated this AM. Awaiting HD this morning. Continues to complain of pain 2/2 to hip surgery and and rib fractures. Thrombectomy of the L arm was not yet performed. CXR has shown worsening moderate bibasilar atelectasis/infiltrate, and pt has O2 sat 92% on 2.0 L NC. Vitals Vitals Vital Signs Date Time Temp Pulse Resp B/P Pulse Ox O2 Delivery O2 Flow Rate FiO2 05/22/16 10:38 88 Nasal Cannula 2.0 05/22/16 10:08 19 05/22/16 08:44 114 179/59 05/22/16 07:00 98.6 98.6 Physical Exam General: Alert, Oriented X3, Cooperative Heart: Regular rate Lungs: Clear, Other (painful over R ribs, following code/CPR) Abdomen: Normal bowel sounds Extremities: No clubbing, No edema, Other (clean, dry, intact dressing of the R hip) Skin: No rashes Labs LABS Laboratory Tests Test 05/22/16 04:50 White Blood Count 11.9x10^3/uL (4.0-11.0) Red Blood Count 2.36x10^6/uL (3.50-5.40) Hemoglobin 7.2g/dL (12.0-15.5) Hematocrit 22.2% (36.0-47.0) Mean Corpuscular Volume 94fL (79-100) Mean Corpuscular Hemoglobin 31pg (25-35) Mean Corpuscular Hemoglobin Concent 32g/dL (31-37) Red Cell Distribution Width 16.8% (11.5-14.5) Platelet Count 171x10^3/uL (140-400) Neutrophils (%) (Auto) 83% (31-73) Lymphocytes (%) (Auto) 7% (24-48) Monocytes (%) (Auto) 6% (0-9) Eosinophils (%) (Auto) 3% (0-3) Basophils (%) (Auto) 1% (0-3) Neutrophils # (Auto) 9.9x10^3uL (1.8-7.7) Lymphocytes # (Auto) 0.8x10^3/uL (1.0-4.8) Monocytes # (Auto) 0.8x10^3/uL (0.0-1.1) Eosinophils # (Auto) 0.3x10^3/uL (0.0-0.7) Basophils # (Auto) 0.1x10^3/uL (0.0-0.2) Prothrombin Time 21.1SEC (11.7-14.0) Prothromb Time International Ratio 1.9 (0.8-1.1) Sodium Level 137mmol/L (136-145) Potassium Level 5.0mmol/L (3.5-5.1) Chloride Level 99mmol/L (98-107) Carbon Dioxide Level 25mmol/L (21-32) Anion Gap 13 (6-14) Blood Urea Nitrogen 48mg/dL (7-20) Creatinine 6.3mg/dL (0.6-1.0) Estimated GFR (Cockcroft-Gault) 8.0 Glucose Level 108mg/dL (70-99) Calcium Level 8.8mg/dL (8.5-10.1) Review of Systems Review of Systems afebrile + pain in the hip and ribs + generalized weakness Assessment and Plan Assessmemt and Plan ASSESSMENT: 0. S/P code blue after hip replacement 1. Abdominal pain; chronic, unclear etiology 2. Narcotic dependence. 3. Hx osteomyelitis, and replaced hip hardware. 4. elevated Alk Phos; isolated. 5. ESRD: HD M/W/F 6. Anemia; severe, 2/2 ESRD. PLAN: - SW to LT[facility] eval - awaiting thrombectomy of the L arm, not performed yesterday. - Pulmonology following; CXR showing worsening moderate bibasilar atelectasis/ infiltrate - cont cardiac monitoring - HD today; and typically MWF - cont wound care - recheck daily labs - PTOT - cont narcotics for hip and rib pain - cont IV Zofran for nausea - cont Benadryl for itchiness - appreciate all subspecialists involved in the care of this patient Problems: Comment Review of Relevant I have reviewed the following items lynnette (where applicable) has been applied. Labs Laboratory Tests Test 05/21/16 09:40 05/22/16 04:50 Hemoglobin 7.6g/dL (12.0-15.5) 7.2g/dL (12.0-15.5) Hematocrit 23.2% (36.0-47.0) 22.2% (36.0-47.0) Mean Corpuscular Hemoglobin Concent 33g/dL (31-37) 32g/dL (31-37) Prothrombin Time 18.1SEC (11.7-14.0) 21.1SEC (11.7-14.0) Prothromb Time International Ratio 1.6 (0.8-1.1) 1.9 (0.8-1.1) White Blood Count 11.9x10^3/uL (4.0-11.0) Red Blood Count 2.36x10^6/uL (3.50-5.40) Mean Corpuscular Volume 94fL (79-100) Mean Corpuscular Hemoglobin 31pg (25-35) Red Cell Distribution Width 16.8% (11.5-14.5) Platelet Count 171x10^3/uL (140-400) Neutrophils (%) (Auto) 83% (31-73) Lymphocytes (%) (Auto) 7% (24-48) Monocytes (%) (Auto) 6% (0-9) Eosinophils (%) (Auto) 3% (0-3) Basophils (%) (Auto) 1% (0-3) Neutrophils # (Auto) 9.9x10^3uL (1.8-7.7) Lymphocytes # (Auto) 0.8x10^3/uL (1.0-4.8) Monocytes # (Auto) 0.8x10^3/uL (0.0-1.1) Eosinophils # (Auto) 0.3x10^3/uL (0.0-0.7) Basophils # (Auto) 0.1x10^3/uL (0.0-0.2) Sodium Level 137mmol/L (136-145) Potassium Level 5.0mmol/L (3.5-5.1) Chloride Level 99mmol/L (98-107) Carbon Dioxide Level 25mmol/L (21-32) Anion Gap 13 (6-14) Blood Urea Nitrogen 48mg/dL (7-20) Creatinine 6.3mg/dL (0.6-1.0) Estimated GFR (Cockcroft-Gault) 8.0 Glucose Level 108mg/dL (70-99) Calcium Level 8.8mg/dL (8.5-10.1) Laboratory Tests Test 05/22/16 04:50 White Blood Count 11.9x10^3/uL (4.0-11.0) Red Blood Count 2.36x10^6/uL (3.50-5.40) Hemoglobin 7.2g/dL (12.0-15.5) Hematocrit 22.2% (36.0-47.0) Mean Corpuscular Volume 94fL (79-100) Mean Corpuscular Hemoglobin 31pg (25-35) Mean Corpuscular Hemoglobin Concent 32g/dL (31-37) Red Cell Distribution Width 16.8% (11.5-14.5) Platelet Count 171x10^3/uL (140-400) Neutrophils (%) (Auto) 83% (31-73) Lymphocytes (%) (Auto) 7% (24-48) Monocytes (%) (Auto) 6% (0-9) Eosinophils (%) (Auto) 3% (0-3) Basophils (%) (Auto) 1% (0-3) Neutrophils # (Auto) 9.9x10^3uL (1.8-7.7) Lymphocytes # (Auto) 0.8x10^3/uL (1.0-4.8) Monocytes # (Auto) 0.8x10^3/uL (0.0-1.1) Eosinophils # (Auto) 0.3x10^3/uL (0.0-0.7) Basophils # (Auto) 0.1x10^3/uL (0.0-0.2) Prothrombin Time 21.1SEC (11.7-14.0) Prothromb Time International Ratio 1.9 (0.8-1.1) Sodium Level 137mmol/L (136-145) Potassium Level 5.0mmol/L (3.5-5.1) Chloride Level 99mmol/L (98-107) Carbon Dioxide Level 25mmol/L (21-32) Anion Gap 13 (6-14) Blood Urea Nitrogen 48mg/dL (7-20) Creatinine 6.3mg/dL (0.6-1.0) Estimated GFR (Cockcroft-Gault) 8.0 Glucose Level 108mg/dL (70-99) Calcium Level 8.8mg/dL (8.5-10.1) Medications Current Medications Ondansetron HCl (Zofran) 4 mg 1X ONCE IV Last administered on 05/15/16 19:17 ; Start 05/15/16 at 19:00; Stop 05/15/16 at 19:01; Status DC Morphine Sulfate 4 mg 1X ONCE IV Last administered on 05/15/16 19:19; Start 05/15/16 at 19:00; Stop 05/15/16 at 19:01; Status DC Hydralazine HCl (Apresoline) 10 mg 1X ONCE IVP Last administered on 05/15/16 19:21; Start 05/15/16 at 19:00; Stop 05/15/16 at 19:01; Status DC Lorazepam (Ativan) 1 mg 1X ONCE PO Last administered on 05/15/16 20:04; Start 05/15/16 at 19:45; Stop 05/15/16 at 19:46; Status DC Alprazolam (Xanax) 2 mg PRN TID PRN PO ANXIETY / AGITATION; Start 05/15/16 at 20:45; Stop 05/15/16 at 20:47; Status DC Amlodipine Besylate (Norvasc) 10 mg DAILY PO Last administered on 05/22/16 08: 43; Start 05/16/16 at 09:00 Hydralazine HCl (Apresoline) 50 mg TID PO Last administered on 05/22/16 08:43; Start 05/16/16 at 09:00 Ondansetron HCl (Zofran Odt) 4 mg PRN Q8HRS PRN PO NAUSEA; Start 05/15/16 at 20 :45; Stop 05/21/16 at 10:18; Status DC Oxycodone/ Acetaminophen (Percocet 7.5/ 325) 1 tab PRN Q8HRS PRN PO PAIN; Start 05/15/16 at 20:45; Status Cancel Metoprolol Succinate (Toprol Xl) 200 mg DAILY PO Last administered on 05/22/16 08:44; Start 05/16/16 at 09:00 Alprazolam (Xanax) 2 mg PRN TID PRN PO ANXIETY / AGITATION; Start 05/15/16 at 20:47 Morphine Sulfate 4 mg 1X ONCE IV Last administered on 05/15/16 21:13; Start 05/15/16 at 21:00; Stop 05/15/16 at 21:01; Status DC Ondansetron HCl (Zofran) 4 mg 1X ONCE IV Last administered on 05/15/16 21:08 ; Start 05/15/16 at 21:00; Stop 05/15/16 at 21:01; Status DC Labetalol HCl (Normodyne) 20 mg PRN Q6HRS PRN IVP HYPERTENSION, SEE COMMENTS Last administered on 05/20/16 04:29; Start 05/15/16 at 23:30 Lorazepam (Ativan) 1 mg PRN Q6HRS PRN IV ANXIETY / AGITATION Last administered on 05/16/16 20:22; Start 05/15/16 at 23:30; Stop 05/16/16 at 22:44; Status DC Morphine Sulfate 2 mg PRN Q2HR PRN IV PAIN Last administered on 05/16/16 10:52 ; Start 05/15/16 at 23:30; Stop 05/16/16 at 11:42; Status DC Morphine Sulfate 4 mg PRN Q2HR PRN IV PAIN; Start 05/15/16 at 23:30; Stop 05/16 at 11:42; Status DC Diphenhydramine HCl (Benadryl) 50 mg PRN Q6HRS PRN IVP ITCHING Last administered on 05/16/16 20:23; Start 05/15/16 at 23:30; Stop 05/16/16 at 22:44 ; Status DC Morphine Sulfate 1 mg PRN Q2HR PRN IV PAIN Last administered on 05/17/16 18:38 ; Start 05/16/16 at 11:45; Stop 05/21/16 at 10:18; Status DC Diphenhydramine HCl (Benadryl) 25 mg PRN Q8HRS PRN IVP ITCHING Last administered on 05/18/16 04:54; Start 05/16/16 at 23:30; Stop 05/18/16 at 15:51 ; Status DC Lorazepam (Ativan) 0.5 mg PRN Q8HRS PRN IV ANXIETY / AGITATION Last administered on 05/22/16 06:07; Start 05/16/16 at 23:30 Metoclopramide HCl (Reglan) 5 mg PRN Q8HRS PRN IV NAUSEA/VOMITING Last administered on 05/21/16 08:18; Start 05/16/16 at 22:45 Polyethylene Glycol (miraLAX PACKET) 17 gm BID PO ; Start 05/17/16 at 09:00 Lidocaine HCl 2 ml 2 ml STK-MED ONCE .ROUTE ; Start 05/17/16 at 11:20; Stop at 11:21; Status DC Sodium Chloride (Iv Sodium Chloride 0.9% 1000ml Bag) 1,000 ml @ 1,000 mls/hr Q1H PRN IV hypotension; Start 05/17/16 at 12:42; Stop 05/17/16 at 18:41; Status DC Diphenhydramine HCl (Benadryl) 25 mg 1X PRN PRN IV ITCHING; Start 05/17/16 at 12:45; Stop 05/18/16 at 12:44; Status DC Diphenhydramine HCl (Benadryl) 25 mg 1X PRN PRN IV ITCHING; Start 05/17/16 at 12:45; Stop 05/18/16 at 12:44; Status DC Info (PHARMACY MONITORING -- do not chart) 1 each PRN DAILY PRN MC SEE COMMENTS ; Start 05/17/16 at 12:45; Status UNV Info 1 each 1 each PRN DAILY PRN MC SEE COMMENTS; Start 05/17/16 at 12:45; Status UNV Morphine Sulfate/ Ketorolac Tromethamine/ Ropivacaine/ Epinephrine HCl/ Sodium Chloride (Morphine 5mg Syringe/Toradol/ Naropin 0.5%/ Adrenalin/Iv Sodium Chloride 0.9% 100ml) 100.5 ml @ 100.5 mls/ hr 1X PERIOP ONCE INT ART Last administered on 05/18/16 08:20; Start 05/18/16 at 06:00; Stop 05/18/16 at 06:59 ; Status DC Ondansetron HCl (Zofran) 4 mg PRN Q6HRS PRN IV Nausea; Start 05/18/16 at 07:00 ; Stop 05/19/16 at 06:59; Status DC Fentanyl Citrate (Fentanyl 2ml Vial) 25 mcg PRN Q5MIN PRN IV MILD PAIN Last administered on 05/18/16 16:42; Start 05/18/16 at 07:00; Stop 05/19/16 at 06:59 ; Status DC Fentanyl Citrate (Fentanyl 2ml Vial) 50 mcg PRN Q5MIN PRN IV MODERATE PAIN Last administered on 05/19/16 02:10; Start 05/18/16 at 07:00; Stop 05/19/16 at 06 :59; Status DC Morphine Sulfate 1 mg PRN Q10MIN PRN IV SEVERE PAIN; Start 05/18/16 at 07:00; Stop 05/19/16 at 06:59; Status DC Lidocaine HCl 2 ml 1X PRN PRN ID IV START; Start 05/18/16 at 07:00; Stop at 06:59; Status DC Hydromorphone HCl (Dilaudid) 0.5 mg PRN Q10MIN PRN IV SEVERE PAIN, Second choice Last administered on 05/19/16 00:53; Start 05/18/16 at 07:00; Stop at 06:59; Status DC Prochlorperazine Edisylate 5 mg 5 mg PACU PRN PRN IV NAUSEA; Start 05/18/16 at 07:00; Stop 05/19/16 at 06:59; Status DC Sodium Chloride (Iv Sodium Chloride 0.9% 1000ml Bag) 1,000 ml @ 30 mls/hr Q24H IV ; Start 05/18/16 at 07:00; Stop 05/19/16 at 07:48; Status DC Warfarin Sodium (Coumadin) 5 mg 1X ONCE PO Last administered on 05/17/16 16: 31; Start 05/17/16 at 17:00; Stop 05/17/16 at 17:01; Status DC Acetaminophen/ Hydrocodone Bitart (Lortab 7.5/325) 2 tab 1X ONCE PO ; Start at 05:30; Stop 05/18/16 at 05:31; Status Cancel Acetaminophen/ Hydrocodone Bitart 2 tab 2 tab 1X PREOP PRN PO PRIOR TO PROCEDURE; Start 05/18/16 at 06:00; Stop 05/18/16 at 18:00; Status DC Cefazolin Sodium/ Dextrose 50 ml @ 100 mls/hr 1X PREOP PRN IV PRIOR TO PROCEDURE; Start 05/18/16 at 06:00; Stop 05/18/16 at 18:00; Status DC Morphine Sulfate/ Ketorolac Tromethamine/ Ropivacaine/ Epinephrine HCl/ Sodium Chloride (Morphine 5mg Syringe/Toradol/ Naropin 0.5%/ Adrenalin/Iv Sodium Chloride 0.9% 50ml) 100.5 ml @ 100.5 mls/ hr 1X PERIOP ONCE INT ART ; Start at 06:00; Stop 05/18/16 at 06:59; Status Cancel Dexamethasone Sodium Phosphate (Decadron) 20 mg STK-MED ONCE .ROUTE ; Start at 06:57; Stop 05/18/16 at 06:58; Status DC Ondansetron HCl 4 mg 4 mg STK-MED ONCE .ROUTE ; Start 05/18/16 at 06:57; Stop at 06:58; Status DC Propofol (Diprivan) 20 ml @ As Directed STK-MED ONCE IV ; Start 05/18/16 at 06: 57; Stop 05/18/16 at 06:58; Status DC Lidocaine HCl 100 mg STK-MED ONCE .ROUTE ; Start 05/18/16 at 06:57; Stop at 06:58; Status DC Fentanyl Citrate (Fentanyl 5ml Vial) 250 mcg STK-MED ONCE .ROUTE ; Start at 06:57; Stop 05/18/16 at 06:58; Status DC Midazolam HCl (Versed) 2 mg STK-MED ONCE .ROUTE ; Start 05/18/16 at 06:58; Stop 05/18/16 at 06:59; Status DC Rocuronium [place] 50 mg 50 mg STK-MED ONCE .ROUTE ; Start 05/18/16 at 06:58; Stop 05/18/16 at 06:59; Status DC Acetaminophen 100 ml @ As Directed STK-MED ONCE IV ; Start 05/18/16 at 07:13; Stop 05/18/16 at 07:14; Status DC Sodium Chloride 500 ml @ 30 mls/hr [id number] IV Last administered on 05/18/16 07:45; Start 05/18/16 at 07:45; Stop 05/19/16 at 07:48; Status DC Cefazolin Sodium (Ancef 1gm Ivpb For Omni) 50 ml @ As Directed STK-MED ONCE IV ; Start 05/18/16 at 07:45; Stop 05/18/16 at 07:46; Status DC Fentanyl Citrate (Fentanyl 5ml Vial) 250 mcg STK-MED ONCE .ROUTE ; Start at 08:27; Stop 05/18/16 at 08:28; Status DC Rocuronium [place] (Zemuron) 50 mg STK-MED ONCE .ROUTE ; Start 05/18/16 at 08:27 ; Stop 05/18/16 at 08:28; Status DC Morphine Sulfate 5 mg 5 mg STK-MED ONCE .ROUTE ; Start 05/18/16 at 08:59; Stop 05/18/16 at 09:00; Status DC Cefazolin Sodium (Ancef 1gm Ivpb For Omni) 50 ml @ 100 mls/hr 1X PREOP PRN IV PER PROTOCOL Last administered on 05/18/16 08:06; Start 05/18/16 at 09:30; Stop 05/19/16 at 09:29; Status DC Lisinopril (Prinivil) 20 mg DAILY PO Last administered on 05/22/16 08:43; Start 05/18/16 at 11:30 Albuterol Sulfate (Ventolin Neb Soln) 2.5 mg STK-MED ONCE .ROUTE ; Start at 11:24; Stop 05/18/16 at 11:25; Status DC Morphine Sulfate 10 mg STK-MED ONCE .ROUTE ; Start 05/18/16 at 11:55; Stop 05/18 at 11:56; Status DC Cefazolin Sodium/ Dextrose 2 gm 2 gm STK-MED ONCE IV ; Start 05/18/16 at 07:30; Stop 05/18/16 at 12:41; Status DC Cefazolin Sodium (Ancef 1gm Ivpb For Omni) 50 ml @ As Directed STK-MED ONCE IV ; Start 05/18/16 at 13:02; Stop 05/18/16 at 13:03; Status DC Fentanyl Citrate (Fentanyl 5ml Vial) 250 mcg STK-MED ONCE .ROUTE ; Start at 13:27; Stop 05/18/16 at 13:28; Status DC Phenylephrine HCl 1 mg STK-MED ONCE IV ; Start 05/18/16 at 13:58; Stop 05/18/16 at 13:59; Status DC Insulin Human Regular (Novolin R Vial) 10 unit 1X ONCE IV ; Start 05/18/16 at 14:15; Stop 05/18/16 at 14:16; Status DC Acetaminophen/ Hydrocodone Bitart (Lortab 7.5/325) 1 tab PRN Q3HRS PRN PO PAIN ; Start 05/18/16 at 15:45; Stop 05/21/16 at 10:18; Status DC Acetaminophen/ Hydrocodone Bitart (Lortab 10/325) 1 tab PRN Q3HRS PRN PO PAIN; Start 05/18/16 at 15:45 Tramadol HCl (Ultram) 50 mg PRN QID PRN PO PAIN; Start 05/18/16 at 15:45; Stop 05/21/16 at 10:18; Status DC Oxycodone/ Acetaminophen (Percocet 5/325) 1 tab PRN Q3HRS PRN PO PAIN; Start at 15:45 Oxycodone/ Acetaminophen (Percocet 7.5/ 325) 1 tab PRN Q3HRS PRN PO PAIN; Start 05/18/16 at 15:45 Tramadol HCl (Ultram) 100 mg PRN Q3HRS PRN PO PAIN; Start 05/18/16 at 15:45 Morphine Sulfate 2 mg PRN Q1HR PRN IV PAIN; Start 05/18/16 at 15:45; Stop at 10:40; Status DC Fentanyl Citrate (Fentanyl 2ml Vial) 25 mcg PRN Q1HR PRN IV PAIN Last administered on 05/20/16 21:37; Start 05/18/16 at 15:45; Stop 05/21/16 at 10:18; Status DC Diphenhydramine HCl (Benadryl) 25 mg PRN Q6HRS PRN IV ITCHING Last administered on 05/21/16 10:08; Start 05/18/16 at 15:45; Stop 05/21/16 at 10:43; Status DC Warfarin Sodium (Coumadin Per Pharmacy) 1 each PRN DAILY PRN MC SEE COMMENTS Last administered on 05/21/16 14:33; Start 05/18/16 at 15:45 Multivitamins/ Calcium (Thera M Plus) 1 tab DAILY PO Last administered on 08:43; Start 05/19/16 at 09:00 Senna/Docusate Sodium (Senna Plus) 1 tab DAILY PO Last administered on 08:42; Start 05/19/16 at 09:00 Ferrous Sulfate 325 mg 325 mg BIDWMEALS PO Last administered on 05/22/16 08:44 ; Start 05/18/16 at 17:00 Dextrose/Sodium Chloride (Iv D5% - 03/22 NS) 1,000 ml @ 100 mls/hr Q10H IV ; Start 05/18/16 at 15:31; Stop 05/19/16 at 07:48; Status DC Magnesium Hydroxide (Milk Of Magnesia) 2,400 mg 1X PRN PRN PO CONSTIPATION; Start 05/19/16 at 06:00; Stop 05/20/16 at 05:59; Status DC Bisacodyl (Dulcolax Supp) [address] CONSTIPATION; Start 05/19/16 at 16 :00; Stop 05/20/16 at 15:59; Status DC Acetaminophen (Tylenol) 650 mg PRN Q4HRS PRN PO MILD PAIN / TEMP; Start at 15:45 Zolpidem Tartrate (Ambien) 5 mg PRN QHS PRN PO INSOMNIA, MAY REPEAT IN 1HR Last administered on 05/19/16 21:06; Start 05/18/16 at 15:45 Calcium Carbonate/ Glycine (Tums) 500 mg PRN QID PRN PO INDIGESTION; Start at 15:45 Morphine Sulfate 4 mg PRN Q1HR PRN IV PAIN Last administered on 05/21/16 08:11 ; Start 05/18/16 at 15:45; Stop 05/21/16 at 10:40; Status DC Morphine Sulfate 6 mg PRN Q1HR PRN IV PAIN Last administered on 05/20/16 20:04 ; Start 05/18/16 at 15:45; Stop 05/21/16 at 10:18; Status DC Morphine Sulfate 8 mg PRN Q1HR PRN IV PAIN; Start 05/18/16 at 15:45; Stop at 10:18; Status DC Sodium Chloride (Normal Saline Flush) 10 ml QSHIFT PRN IV AFTER MEDS AND BLOOD DRAWS; Start 05/18/16 at 15:45; Stop 05/21/16 at 07:32; Status DC Fentanyl Citrate (Fentanyl 2ml Vial) 50 mcg PRN Q1HR PRN IV PAIN Last administered on 05/21/16 10:09; Start 05/18/16 at 15:45; Stop 05/21/16 at 10:40; Status DC Prochlorperazine Edisylate (Compazine) 10 mg PRN Q4HRS PRN IV NAUSEA/VOMITING; Start 05/18/16 at 15:45 Dextrose 12.5 gm 12.5 gm PRN Q15MIN PRN IV SEE COMMENTS; Start 05/18/16 at 15: 45 Cefazolin Sodium/ Sodium Chloride (Ancef/Iv Sodium Chloride 0.9% 50ml) 50 ml @ 100 mls/hr Q6H IV Last administered on 05/19/16 05:00; Start 05/18/16 at 16:00 ; Stop 05/19/16 at 04:29; Status DC Warfarin Sodium (Coumadin) 5 mg 1X WARF ONCE PO ; Start 05/18/16 at 16:00; Stop 05/18/16 at 16:01; Status DC Lidocaine/Sodium Bicarbonate 20 ml 20 ml STK-MED ONCE IJ ; Start 05/18/16 at 16: 51; Stop 05/18/16 at 16:52; Status DC Heparin Sodium/ Sodium Chloride 500 ml @ As Directed STK-MED ONCE .ROUTE ; Start 05/18/16 at 16:51; Stop 05/18/16 at 16:52; Status DC Heparin Sodium (Porcine) 89328 unit 10,000 unit STK-MED ONCE .ROUTE ; Start at 16:52; Stop 05/18/16 at 16:53; Status DC Sodium Chloride (Iv Sodium Chloride 0.9% 1000ml Bag) 1,000 ml @ 1,000 mls/hr Q1H PRN IV hypotension; Start 05/18/16 at 17:23; Stop 05/18/16 at 23:22; Status DC Diphenhydramine HCl (Benadryl) 75 mg 1X PRN PRN IV ITCHING; Start 05/18/16 at 17:30; Stop 05/19/16 at 17:29; Status DC Info (PHARMACY MONITORING -- do not chart) 1 each PRN DAILY PRN MC SEE COMMENTS ; Start 05/18/16 at 17:30 Info (PHARMACY MONITORING -- do not chart) 1 each PRN DAILY PRN MC SEE COMMENTS ; Start 05/18/16 at 17:30; Status UNV Lidocaine/Sodium Bicarbonate (Buffered Lidocaine 1%) 3 ml 1X ONCE IJ Last administered on 05/18/16 17:34; Start 05/18/16 at 17:30; Stop 05/18/16 at 17:34 ; Status DC Heparin Sodium/ Sodium Chloride 60 unit 1X ONCE IV ; Start 05/18/16 at 17:30; Stop 05/18/16 at 17:34; Status DC Insulin Aspart (Novolog Vial) 10 unit 1X ONCE SQ ; Start 05/18/16 at 18:30; Stop 05/18/16 at 18:31; Status Cancel Insulin Human Regular 10 unit 10 unit 1X ONCE IV ; Start 05/18/16 at 19:00; Stop 05/18/16 at 19:01; Status DC Propofol (Diprivan) 100 ml @ 0 mls/hr CONT PRN IV . Last administered on 02:10; Start 05/18/16 at 19:00; Stop 05/21/16 at 07:32; Status DC Darbepoetin Jude (Aranesp) 60 mcg [id number] SQ ; Start 05/19/16 at 21:00 Diphenhydramine HCl (Benadryl) 50 mg 1X ONCE IM Last administered on 05/19/16 13:27; Start 05/19/16 at 13:15; Stop 05/19/16 at 13:16; Status DC Warfarin Sodium (Coumadin - No Dose Today) 1 each 1X WARF ONCE MC ; Start at 16:00; Stop 05/19/16 at 16:01; Status DC Hydralazine HCl (Apresoline) 10 mg PRN Q4HRS PRN IVP ELEVATED BP, SEE COMMENTS Last administered on 05/19/16 23:57; Start 05/19/16 at 16:15 Amlodipine Besylate (Norvasc) 10 mg 1X ONCE PO Last administered on 05/19/16 17:34; Start 05/19/16 at 17:30; Stop 05/19/16 at 17:31; Status DC Lisinopril (Prinivil) 20 mg 1X ONCE PO Last administered on 05/19/16 17:34; Start 05/19/16 at 17:30; Stop 05/19/16 at 17:31; Status DC Metoprolol Succinate (Toprol Xl) 200 mg 1X ONCE PO Last administered on 17:34; Start 05/19/16 at 17:30; Stop 05/19/16 at 17:31; Status DC Lidocaine HCl 2 ml 2 ml STK-MED ONCE .ROUTE ; Start 05/20/16 at 08:19; Stop at 08:20; Status DC Sodium Chloride (Iv Sodium Chloride 0.9% 1000ml Bag) 1,000 ml @ 1,000 mls/hr Q1H PRN IV hypotension; Start 05/20/16 at 09:24; Stop 05/20/16 at 15:23; Status DC Diphenhydramine HCl (Benadryl) 25 mg 1X PRN PRN IV ITCHING Last administered on 05/20/16 09:36; Start 05/20/16 at 09:30; Stop 05/21/16 at 07:32; Status DC Diphenhydramine HCl (Benadryl) 25 mg 1X PRN PRN IV ITCHING Last administered on 05/20/16 09:59; Start 05/20/16 at 09:30; Stop 05/21/16 at 07:32; Status DC Sodium Chloride (Normal Saline Flush) 10 ml 1X PRN PRN IV AP catheter pack; Start 05/20/16 at 09:30; Stop 05/21/16 at 09:29; Status DC Sodium Chloride (Normal Saline Flush) 10 ml 1X PRN PRN IV [employer] catheter pack; Start 05/20/16 at 09:30; Stop 05/21/16 at 09:29; Status DC Info (PHARMACY MONITORING -- do not chart) 1 each PRN DAILY PRN MC SEE COMMENTS ; Start 05/20/16 at 09:30; Stop 05/20/16 at 09:31; Status DC Info (PHARMACY MONITORING -- do not chart) 1 each PRN DAILY PRN MC SEE COMMENTS ; Start 05/20/16 at 09:30; Status Cancel Warfarin Sodium (Coumadin) 3 mg 1X WARF ONCE PO Last administered on 05/20/16 16:26; Start 05/20/16 at 16:00; Stop 05/20/16 at 16:01; Status DC Dextrose 25 gm STK-MED ONCE IV ; Start 05/19/16 at 12:00; Stop 05/20/16 at 16:10; Status DC Epinephrine HCl 1 mg STK-MED ONCE .ROUTE ; Start 05/19/16 at 12:00; Stop 05/20/16 at 16:10; Status DC Sodium Bicarbonate 50 meq STK-MED ONCE .ROUTE ; Start 05/19/16 at 12:00; Stop 05/20/16 at 16:10; Status DC Diphenhydramine HCl (Benadryl) 50 mg 1X ONCE IVP Last administered on 04:02; Start 05/21/16 at 04:00; Stop 05/21/16 at 10:18; Status DC Lidocaine HCl (Xylocaine-Mpf 1% Vial) 2 ml STK-MED ONCE .ROUTE ; Start 05/20/16 at 08:00; Stop 05/21/16 at 08:00; Status DC Fentanyl Citrate (Fentanyl 2ml Vial) 50 mcg PRN Q3HRS PRN IV PAIN Last administered on 05/22/16 09:24; Start 05/21/16 at 10:27 Morphine Sulfate 2 mg PRN Q3HRS PRN IV PAIN; Start 05/21/16 at 10:27 Morphine Sulfate 4 mg PRN Q3HRS PRN IV PAIN Last administered on 05/22/16 10:08 ; Start 05/21/16 at 10:27 Diphenhydramine HCl (Benadryl) 50 mg PRN Q6HRS PRN IVP itching Last administered on 05/22/16 10:23; Start 05/21/16 at 10:30 Ondansetron HCl (Zofran) 4 mg PRN Q6HRS PRN IV NAUSEA/VOMITING; Start 05/21/16 at 11:15 Warfarin Sodium 3 mg 3 mg 1X WARF ONCE PO Last administered on 05/21/16t 15:08 ; Start 05/21/16 at 16:00; Stop 05/21/16 at 16:01; Status DC Sodium Chloride (Iv Sodium Chloride 0.9% 1000ml Bag) 1,000 ml @ 1,000 mls/hr Q1H PRN IV hypotension; Start 05/22/16 at 09:36; Stop 05/22/16 at 15:35 Diphenhydramine HCl (Benadryl) 25 mg 1X PRN PRN IV ITCHING; Start 05/22/16 at 09 :45; Stop 05/23/16 at 09:44 Sodium Chloride (Normal Saline Flush) 10 ml 1X PRN PRN IV AP catheter pack; Start 05/22/16 at 09:45; Stop 05/23/16 at 09:44 Sodium Chloride (Normal Saline Flush) 10 ml 1X PRN PRN IV [employer] catheter pack; Start 05/22/16 at 09:45; Stop 05/23/16 at 09:44 Info (PHARMACY MONITORING -- do not chart) 1 each PRN DAILY PRN MC SEE COMMENTS ; Start 05/22/16 at 09:45; Status UNV Info (PHARMACY MONITORING -- do not chart) 1 each PRN DAILY PRN MC SEE COMMENTS ; Start 05/22/16 at 09:45; Status UNV Active Scripts Active Zofran Odt (Ondansetron) 4 Mg Tab.rapdis 1 Tab SL Q8HRS PRN Reported Percocet 7.5-325 Mg Tablet (Oxycodone/Acetaminophen) 1 Each Tablet 1 Tab PO PRN Q8HRS PRN Xanax (Alprazolam) 0.25 Mg Tablet 2 Mg PO TID PRN Metoprolol Succinate ( Xl ) (Metoprolol Succinate) 200 Mg Tab.er.24h 1 Tab PO DAILY Hydralazine Hcl 50 Mg Tablet 1 Tab PO TID Amlodipine Besylate 10 Mg Tablet 1 Tab PO DAILY Vitals/I & O Vital Sign - Last 24 Hours 05/21/16 05/21/16 05/21/16 05/21/16 13:25 13:25 15:00 15:07 Temp 98.8 98.8 Pulse 105 102 Resp 16 B/P 171/66 161/55 Pulse Ox 89 89 89 O2 Delivery Nasal Cannula Nasal Cannula Nasal Cannula O2 Flow Rate 2.0 2.0 2.0 05/21/16 05/21/16 05/21/16 05/21/16 16:19 17:52 19:34 20:00 Temp 99.8 99.8 Pulse 110 Resp 18 B/P 178/62 Pulse Ox 98 98 90 O2 Delivery Nasal Cannula Nasal Cannula Room Air Nasal Cannula O2 Flow Rate 2.0 2.0 2.0 05/21/16 05/21/16 05/22/16 05/22/16 20:22 23:46 00:00 03:00 Temp 98.7 99.1 98.7 99.1 Pulse 110 112 116 Resp 18 17 B/P 178/62 174/40 146/106 Pulse Ox 91 92 O2 Delivery Room Air Nasal Cannula Nasal Cannula O2 Flow Rate 2.0 05/22/16 05/22/16 05/22/16 05/22/16 03:09 03:50 06:07 06:43 Pulse Ox 92 O2 Delivery Nasal Cannula Nasal Cannula Nasal Cannula Nasal Cannula O2 Flow Rate 2.0 2.0 05/22/16 05/22/16 05/22/16 05/22/16 07:00 08:00 08:43 08:43 Temp 98.6 98.6 Pulse 114 114 114 Resp 20 B/P 179/59 179/59 179/59 Pulse Ox 88 O2 Delivery Nasal Cannula Nasal Cannula O2 Flow Rate 2.0 2.0 05/22/16 05/22/16 05/22/16 05/22/16 08:43 08:44 09:24 09:54 Pulse 114 114 Resp 19 19 B/P 179/59 179/59 Pulse Ox 88 88 O2 Delivery Nasal Cannula Nasal Cannula O2 Flow Rate 2.0 2.0 05/22/16 05/22/16 10:08 10:38 Resp 19 Pulse Ox 88 88 O2 Delivery Nasal Cannula Nasal Cannula O2 Flow Rate 2.0 2.0 Intake and Output 05/21/16 05/21/16 05/22/16 15:00 23:00 07:00 Intake Total 300 ml Output Total 0 ml 0 ml Balance 0 ml 300 ml CASTLE,NIAL K III DO May 22, 2016 12:05
--- NOTE | 2016-05-22 13:41 | PDOC ---
PROGRESS NOTES Subjective Subjective IN FOLLOW UP OF ESRD Objective Objective Vital Signs Date Time Temp Pulse Resp B/P Pulse Ox O2 Delivery O2 Flow Rate FiO2 05/22/16 10:38 88 Nasal Cannula 2.0 05/22/16 10:08 19 05/22/16 08:44 114 179/59 05/22/16 07:00 98.6 98.6 Intake and Output 05/22/16 07:00 Intake Total 300 ml Output Total 0 ml Balance 300 ml Intake Oral 300 ml Output Urine Total 0 ml Physical Exam Abdomen: Normal bowel sounds, Soft, No tenderness, No hepatosplenomegaly, No masses Heart: Regular rate, Normal S1, Normal S2, No murmurs, Gallops Extremities: No edema Lungs: Clear to auscultation, Normal air movement Diagnosis RENAL FAILURE: ESRD Assessment Assessment Problems Medical Problems: (1) Abdominal pain Status: Acute (2) Hip fracture, right Status: Acute (3) Infection and 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 Labs Laboratory Tests Test 05/21/16 09:40 05/22/16 04:50 Hemoglobin 7.6g/dL (12.0-15.5) 7.2g/dL (12.0-15.5) Hematocrit 23.2% (36.0-47.0) 22.2% (36.0-47.0) Mean Corpuscular Hemoglobin Concent 33g/dL (31-37) 32g/dL (31-37) Prothrombin Time 18.1SEC (11.7-14.0) 21.1SEC (11.7-14.0) Prothromb Time International Ratio 1.6 (0.8-1.1) 1.9 (0.8-1.1) White Blood Count 11.9x10^3/uL (4.0-11.0) Red Blood Count 2.36x10^6/uL (3.50-5.40) Mean Corpuscular Volume 94fL (79-100) Mean Corpuscular Hemoglobin 31pg (25-35) Red Cell Distribution Width 16.8% (11.5-14.5) Platelet Count 171x10^3/uL (140-400) Neutrophils (%) (Auto) 83% (31-73) Lymphocytes (%) (Auto) 7% (24-48) Monocytes (%) (Auto) 6% (0-9) Eosinophils (%) (Auto) 3% (0-3) Basophils (%) (Auto) 1% (0-3) Neutrophils # (Auto) 9.9x10^3uL (1.8-7.7) Lymphocytes # (Auto) 0.8x10^3/uL (1.0-4.8) Monocytes # (Auto) 0.8x10^3/uL (0.0-1.1) Eosinophils # (Auto) 0.3x10^3/uL (0.0-0.7) Basophils # (Auto) 0.1x10^3/uL (0.0-0.2) Sodium Level 137mmol/L (136-145) Potassium Level 5.0mmol/L (3.5-5.1) Chloride Level 99mmol/L (98-107) Carbon Dioxide Level 25mmol/L (21-32) Anion Gap 13 (6-14) Blood Urea Nitrogen 48mg/dL (7-20) Creatinine 6.3mg/dL (0.6-1.0) Estimated GFR (Cockcroft-Gault) 8.0 Glucose Level 108mg/dL (70-99) Calcium Level 8.8mg/dL (8.5-10.1) Laboratory Tests Test 05/22/16 04:50 White Blood Count 11.9x10^3/uL (4.0-11.0) Red Blood Count 2.36x10^6/uL (3.50-5.40) Hemoglobin 7.2g/dL (12.0-15.5) Hematocrit 22.2% (36.0-47.0) Mean Corpuscular Volume 94fL (79-100) Mean Corpuscular Hemoglobin 31pg (25-35) Mean Corpuscular Hemoglobin Concent 32g/dL (31-37) Red Cell Distribution Width 16.8% (11.5-14.5) Platelet Count 171x10^3/uL (140-400) Neutrophils (%) (Auto) 83% (31-73) Lymphocytes (%) (Auto) 7% (24-48) Monocytes (%) (Auto) 6% (0-9) Eosinophils (%) (Auto) 3% (0-3) Basophils (%) (Auto) 1% (0-3) Neutrophils # (Auto) 9.9x10^3uL (1.8-7.7) Lymphocytes # (Auto) 0.8x10^3/uL (1.0-4.8) Monocytes # (Auto) 0.8x10^3/uL (0.0-1.1) Eosinophils # (Auto) 0.3x10^3/uL (0.0-0.7) Basophils # (Auto) 0.1x10^3/uL (0.0-0.2) Prothrombin Time 21.1SEC (11.7-14.0) Prothromb Time International Ratio 1.9 (0.8-1.1) Sodium Level 137mmol/L (136-145) Potassium Level 5.0mmol/L (3.5-5.1) Chloride Level 99mmol/L (98-107) Carbon Dioxide Level 25mmol/L (21-32) Anion Gap 13 (6-14) Blood Urea Nitrogen 48mg/dL (7-20) Creatinine 6.3mg/dL (0.6-1.0) Estimated GFR (Cockcroft-Gault) 8.0 Glucose Level 108mg/dL (70-99) Calcium Level 8.8mg/dL (8.5-10.1) Medications Current Medications Ondansetron HCl (Zofran) 4 mg 1X ONCE IV Last administered on 05/15/16 19:17 ; Start 05/15/16 at 19:00; Stop 05/15/16 at 19:01; Status DC Morphine Sulfate 4 mg 1X ONCE IV Last administered on 05/15/16 19:19; Start 05/15/16 at 19:00; Stop 05/15/16 at 19:01; Status DC Hydralazine HCl (Apresoline) 10 mg 1X ONCE IVP Last administered on 05/15/16 19:21; Start 05/15/16 at 19:00; Stop 05/15/16 at 19:01; Status DC Lorazepam (Ativan) 1 mg 1X ONCE PO Last administered on 05/15/16 20:04; Start 05/15/16 at 19:45; Stop 05/15/16 at 19:46; Status DC Alprazolam (Xanax) 2 mg PRN TID PRN PO ANXIETY / AGITATION; Start 05/15/16 at 20:45; Stop 05/15/16 at 20:47; Status DC Amlodipine Besylate (Norvasc) 10 mg DAILY PO Last administered on 05/22/16 08: 43; Start 05/16/16 at 09:00 Hydralazine HCl (Apresoline) 50 mg TID PO Last administered on 05/22/16 08:43; Start 05/16/16 at 09:00 Ondansetron HCl (Zofran Odt) 4 mg PRN Q8HRS PRN PO NAUSEA; Start 05/15/16 at 20 :45; Stop 05/21/16 at 10:18; Status DC Oxycodone/ Acetaminophen (Percocet 7.5/ 325) 1 tab PRN Q8HRS PRN PO PAIN; Start 05/15/16 at 20:45; Status Cancel Metoprolol Succinate (Toprol Xl) 200 mg DAILY PO Last administered on 05/22/16 08:44; Start 05/16/16 at 09:00 Alprazolam (Xanax) 2 mg PRN TID PRN PO ANXIETY / AGITATION; Start 05/15/16 at 20:47 Morphine Sulfate 4 mg 1X ONCE IV Last administered on 05/15/16 21:13; Start 05/15/16 at 21:00; Stop 05/15/16 at 21:01; Status DC Ondansetron HCl (Zofran) 4 mg 1X ONCE IV Last administered on 05/15/16 21:08 ; Start 05/15/16 at 21:00; Stop 05/15/16 at 21:01; Status DC Labetalol HCl (Normodyne) 20 mg PRN Q6HRS PRN IVP HYPERTENSION, SEE COMMENTS Last administered on 05/20/16 04:29; Start 05/15/16 at 23:30 Lorazepam (Ativan) 1 mg PRN Q6HRS PRN IV ANXIETY / AGITATION Last administered on 05/16/16 20:22; Start 05/15/16 at 23:30; Stop 05/16/16 at 22:44; Status DC Morphine Sulfate 2 mg PRN Q2HR PRN IV PAIN Last administered on 05/16/16 10:52 ; Start 05/15/16 at 23:30; Stop 05/16/16 at 11:42; Status DC Morphine Sulfate 4 mg PRN Q2HR PRN IV PAIN; Start 05/15/16 at 23:30; Stop 05/16 at 11:42; Status DC Diphenhydramine HCl (Benadryl) 50 mg PRN Q6HRS PRN IVP ITCHING Last administered on 05/16/16 20:23; Start 05/15/16 at 23:30; Stop 05/16/16 at 22:44 ; Status DC Morphine Sulfate 1 mg PRN Q2HR PRN IV PAIN Last administered on 05/17/16 18:38 ; Start 05/16/16 at 11:45; Stop 05/21/16 at 10:18; Status DC Diphenhydramine HCl (Benadryl) 25 mg PRN Q8HRS PRN IVP ITCHING Last administered on 05/18/16 04:54; Start 05/16/16 at 23:30; Stop 05/18/16 at 15:51 ; Status DC Lorazepam (Ativan) 0.5 mg PRN Q8HRS PRN IV ANXIETY / AGITATION Last administered on 05/22/16 06:07; Start 05/16/16 at 23:30 Metoclopramide HCl (Reglan) 5 mg PRN Q8HRS PRN IV NAUSEA/VOMITING Last administered on 05/21/16 08:18; Start 05/16/16 at 22:45 Polyethylene Glycol (miraLAX PACKET) 17 gm BID PO ; Start 05/17/16 at 09:00 Lidocaine HCl 2 ml 2 ml STK-MED ONCE .ROUTE ; Start 05/17/16 at 11:20; Stop at 11:21; Status DC Sodium Chloride (Iv Sodium Chloride 0.9% 1000ml Bag) 1,000 ml @ 1,000 mls/hr Q1H PRN IV hypotension; Start 05/17/16 at 12:42; Stop 05/17/16 at 18:41; Status DC Diphenhydramine HCl (Benadryl) 25 mg 1X PRN PRN IV ITCHING; Start 05/17/16 at 12:45; Stop 05/18/16 at 12:44; Status DC Diphenhydramine HCl (Benadryl) 25 mg 1X PRN PRN IV ITCHING; Start 05/17/16 at 12:45; Stop 05/18/16 at 12:44; Status DC Info (PHARMACY MONITORING -- do not chart) 1 each PRN DAILY PRN MC SEE COMMENTS ; Start 05/17/16 at 12:45; Status UNV Info 1 each 1 each PRN DAILY PRN MC SEE COMMENTS; Start 05/17/16 at 12:45; Status UNV Morphine Sulfate/ Ketorolac Tromethamine/ Ropivacaine/ Epinephrine HCl/ Sodium Chloride (Morphine 5mg Syringe/Toradol/ Naropin 0.5%/ Adrenalin/Iv Sodium Chloride 0.9% 100ml) 100.5 ml @ 100.5 mls/ hr 1X PERIOP ONCE INT ART Last administered on 05/18/16 08:20; Start 05/18/16 at 06:00; Stop 05/18/16 at 06:59 ; Status DC Ondansetron HCl (Zofran) 4 mg PRN Q6HRS PRN IV Nausea; Start 05/18/16 at 07:00 ; Stop 05/19/16 at 06:59; Status DC Fentanyl Citrate (Fentanyl 2ml Vial) 25 mcg PRN Q5MIN PRN IV MILD PAIN Last administered on 05/18/16 16:42; Start 05/18/16 at 07:00; Stop 05/19/16 at 06:59 ; Status DC Fentanyl Citrate (Fentanyl 2ml Vial) 50 mcg PRN Q5MIN PRN IV MODERATE PAIN Last administered on 05/19/16 02:10; Start 05/18/16 at 07:00; Stop 05/19/16 at 06 :59; Status DC Morphine Sulfate 1 mg PRN Q10MIN PRN IV SEVERE PAIN; Start 05/18/16 at 07:00; Stop 05/19/16 at 06:59; Status DC Lidocaine HCl 2 ml 1X PRN PRN ID IV START; Start 05/18/16 at 07:00; Stop at 06:59; Status DC Hydromorphone HCl (Dilaudid) 0.5 mg PRN Q10MIN PRN IV SEVERE PAIN, Second choice Last administered on 05/19/16 00:53; Start 05/18/16 at 07:00; Stop at 06:59; Status DC Prochlorperazine Edisylate 5 mg 5 mg PACU PRN PRN IV NAUSEA; Start 05/18/16 at 07:00; Stop 05/19/16 at 06:59; Status DC Sodium Chloride (Iv Sodium Chloride 0.9% 1000ml Bag) 1,000 ml @ 30 mls/hr Q24H IV ; Start 05/18/16 at 07:00; Stop 05/19/16 at 07:48; Status DC Warfarin Sodium (Coumadin) 5 mg 1X ONCE PO Last administered on 05/17/16 16: 31; Start 05/17/16 at 17:00; Stop 05/17/16 at 17:01; Status DC Acetaminophen/ Hydrocodone Bitart (Lortab 7.5/325) 2 tab 1X ONCE PO ; Start at 05:30; Stop 05/18/16 at 05:31; Status Cancel Acetaminophen/ Hydrocodone Bitart 2 tab 2 tab 1X PREOP PRN PO PRIOR TO PROCEDURE; Start 05/18/16 at 06:00; Stop 05/18/16 at 18:00; Status DC Cefazolin Sodium/ Dextrose 50 ml @ 100 mls/hr 1X PREOP PRN IV PRIOR TO PROCEDURE; Start 05/18/16 at 06:00; Stop 05/18/16 at 18:00; Status DC Morphine Sulfate/ Ketorolac Tromethamine/ Ropivacaine/ Epinephrine HCl/ Sodium Chloride (Morphine 5mg Syringe/Toradol/ Naropin 0.5%/ Adrenalin/Iv Sodium Chloride 0.9% 50ml) 100.5 ml @ 100.5 mls/ hr 1X PERIOP ONCE INT ART ; Start at 06:00; Stop 05/18/16 at 06:59; Status Cancel Dexamethasone Sodium Phosphate (Decadron) 20 mg STK-MED ONCE .ROUTE ; Start at 06:57; Stop 05/18/16 at 06:58; Status DC Ondansetron HCl 4 mg 4 mg STK-MED ONCE .ROUTE ; Start 05/18/16 at 06:57; Stop at 06:58; Status DC Propofol (Diprivan) 20 ml @ As Directed STK-MED ONCE IV ; Start 05/18/16 at 06: 57; Stop 05/18/16 at 06:58; Status DC Lidocaine HCl 100 mg STK-MED ONCE .ROUTE ; Start 05/18/16 at 06:57; Stop at 06:58; Status DC Fentanyl Citrate (Fentanyl 5ml Vial) 250 mcg STK-MED ONCE .ROUTE ; Start at 06:57; Stop 05/18/16 at 06:58; Status DC Midazolam HCl (Versed) 2 mg STK-MED ONCE .ROUTE ; Start 05/18/16 at 06:58; Stop 05/18/16 at 06:59; Status DC Rocuronium [place] 50 mg 50 mg STK-MED ONCE .ROUTE ; Start 05/18/16 at 06:58; Stop 05/18/16 at 06:59; Status DC Acetaminophen 100 ml @ As Directed STK-MED ONCE IV ; Start 05/18/16 at 07:13; Stop 05/18/16 at 07:14; Status DC Sodium Chloride 500 ml @ 30 mls/hr [id number] IV Last administered on 05/18/16t 07:45; Start 05/18/16 at 07:45; Stop 05/19/16 at 07:48; Status DC Cefazolin Sodium (Ancef 1gm Ivpb For Omni) 50 ml @ As Directed STK-MED ONCE IV ; Start 05/18/16 at 07:45; Stop 05/18/16 at 07:46; Status DC Fentanyl Citrate (Fentanyl 5ml Vial) 250 mcg STK-MED ONCE .ROUTE ; Start at 08:27; Stop 05/18/16 at 08:28; Status DC Rocuronium [place] (Zemuron) 50 mg STK-MED ONCE .ROUTE ; Start 05/18/16 at 08:27 ; Stop 05/18/16 at 08:28; Status DC Morphine Sulfate 5 mg 5 mg STK-MED ONCE .ROUTE ; Start 05/18/16 at 08:59; Stop 05/18/16 at 09:00; Status DC Cefazolin Sodium (Ancef 1gm Ivpb For Omni) 50 ml @ 100 mls/hr 1X PREOP PRN IV PER PROTOCOL Last administered on 05/18/16 08:06; Start 05/18/16 at 09:30; Stop 05/19/16 at 09:29; Status DC Lisinopril (Prinivil) 20 mg DAILY PO Last administered on 05/22/16 08:43; Start 05/18/16 at 11:30 Albuterol Sulfate (Ventolin Neb Soln) 2.5 mg STK-MED ONCE .ROUTE ; Start at 11:24; Stop 05/18/16 at 11:25; Status DC Morphine Sulfate 10 mg STK-MED ONCE .ROUTE ; Start 05/18/16 at 11:55; Stop 05/18 at 11:56; Status DC Cefazolin Sodium/ Dextrose 2 gm 2 gm STK-MED ONCE IV ; Start 05/18/16 at 07:30; Stop 05/18/16 at 12:41; Status DC Cefazolin Sodium (Ancef 1gm Ivpb For Omni) 50 ml @ As Directed STK-MED ONCE IV ; Start 05/18/16 at 13:02; Stop 05/18/16 at 13:03; Status DC Fentanyl Citrate (Fentanyl 5ml Vial) 250 mcg STK-MED ONCE .ROUTE ; Start at 13:27; Stop 05/18/16 at 13:28; Status DC Phenylephrine HCl 1 mg STK-MED ONCE IV ; Start 05/18/16 at 13:58; Stop 05/18/16 at 13:59; Status DC Insulin Human Regular (Novolin R Vial) 10 unit 1X ONCE IV ; Start 05/18/16 at 14:15; Stop 05/18/16 at 14:16; Status DC Acetaminophen/ Hydrocodone Bitart (Lortab 7.5/325) 1 tab PRN Q3HRS PRN PO PAIN ; Start 05/18/16 at 15:45; Stop 05/21/16 at 10:18; Status DC Acetaminophen/ Hydrocodone Bitart (Lortab 10/325) 1 tab PRN Q3HRS PRN PO PAIN; Start 05/18/16 at 15:45 Tramadol HCl (Ultram) 50 mg PRN QID PRN PO PAIN; Start 05/18/16 at 15:45; Stop 05/21/16 at 10:18; Status DC Oxycodone/ Acetaminophen (Percocet 5/325) 1 tab PRN Q3HRS PRN PO PAIN; Start at 15:45 Oxycodone/ Acetaminophen (Percocet 7.5/ 325) 1 tab PRN Q3HRS PRN PO PAIN; Start 05/18/16 at 15:45 Tramadol HCl (Ultram) 100 mg PRN Q3HRS PRN PO PAIN; Start 05/18/16 at 15:45 Morphine Sulfate 2 mg PRN Q1HR PRN IV PAIN; Start 05/18/16 at 15:45; Stop at 10:40; Status DC Fentanyl Citrate (Fentanyl 2ml Vial) 25 mcg PRN Q1HR PRN IV PAIN Last administered on 05/20/16 21:37; Start 05/18/16 at 15:45; Stop 05/21/16 at 10:18; Status DC Diphenhydramine HCl (Benadryl) 25 mg PRN Q6HRS PRN IV ITCHING Last administered on 05/21/16 10:08; Start 05/18/16 at 15:45; Stop 05/21/16 at 10:43; Status DC Warfarin Sodium (Coumadin Per Pharmacy) 1 each PRN DAILY PRN MC SEE COMMENTS Last administered on 05/22/16 12:58; Start 05/18/16 at 15:45 Multivitamins/ Calcium (Thera M Plus) 1 tab DAILY PO Last administered on 08:43; Start 05/19/16 at 09:00 Senna/Docusate Sodium (Senna Plus) 1 tab DAILY PO Last administered on 08:42; Start 05/19/16 at 09:00 Ferrous Sulfate 325 mg 325 mg BIDWMEALS PO Last administered on 05/22/16 08:44 ; Start 05/18/16 at 17:00 Dextrose/Sodium Chloride (Iv D5% - 1/2 NS) 1,000 ml @ 100 mls/hr Q10H IV ; Start 05/18/16 at 15:31; Stop 05/19/16 at 07:48; Status DC Magnesium Hydroxide (Milk Of Magnesia) 2,400 mg 1X PRN PRN PO CONSTIPATION; Start 05/19/16 at 06:00; Stop 05/20/16 at 05:59; Status DC Bisacodyl (Dulcolax Supp) 10 mg 1X PRN PRN IN CONSTIPATION; Start 05/19/16 at 16 :00; Stop 05/20/16 at 15:59; Status DC Acetaminophen (Tylenol) 650 mg PRN Q4HRS PRN PO MILD PAIN / TEMP; Start at 15:45 Zolpidem Tartrate (Ambien) 5 mg PRN QHS PRN PO INSOMNIA, MAY REPEAT IN 1HR Last administered on 05/19/16 21:06; Start 05/18/16 at 15:45 Calcium Carbonate/ Glycine (Tums) 500 mg PRN QID PRN PO INDIGESTION; Start at 15:45 Morphine Sulfate 4 mg PRN Q1HR PRN IV PAIN Last administered on 05/21/16 08:11 ; Start 05/18/16 at 15:45; Stop 05/21/16 at 10:40; Status DC Morphine Sulfate 6 mg PRN Q1HR PRN IV PAIN Last administered on 05/20/16 20:04 ; Start 05/18/16 at 15:45; Stop 05/21/16 at 10:18; Status DC Morphine Sulfate 8 mg PRN Q1HR PRN IV PAIN; Start 05/18/16 at 15:45; Stop at 10:18; Status DC Sodium Chloride (Normal Saline Flush) 10 ml QSHIFT PRN IV AFTER MEDS AND BLOOD DRAWS; Start 05/18/16 at 15:45; Stop 05/21/16 at 07:32; Status DC Fentanyl Citrate (Fentanyl 2ml Vial) 50 mcg PRN Q1HR PRN IV PAIN Last administered on 05/21/16 10:09; Start 05/18/16 at 15:45; Stop 05/21/16 at 10:40; Status DC Prochlorperazine Edisylate (Compazine) 10 mg PRN Q4HRS PRN IV NAUSEA/VOMITING; Start 05/18/16 at 15:45 Dextrose 12.5 gm 12.5 gm PRN Q15MIN PRN IV SEE COMMENTS; Start 05/18/16 at 15: 45 Cefazolin Sodium/ Sodium Chloride (Ancef/Iv Sodium Chloride 0.9% 50ml) 50 ml @ 100 mls/hr Q6H IV Last administered on 05/19/16t 05:00; Start 05/18/16 at 16:00 ; Stop 05/19/16 at 04:29; Status DC Warfarin Sodium (Coumadin) 5 mg 1X WARF ONCE PO ; Start 05/18/16 at 16:00; Stop 05/18/16 at 16:01; Status DC Lidocaine/Sodium Bicarbonate 20 ml 20 ml STK-MED ONCE IJ ; Start 05/18/16 at 16: 51; Stop 05/18/16 at 16:52; Status DC Heparin Sodium/ Sodium Chloride 500 ml @ As Directed STK-MED ONCE .ROUTE ; Start 05/18/16 at 16:51; Stop 05/18/16 at 16:52; Status DC Heparin Sodium (Porcine) 69590 unit 10,000 unit STK-MED ONCE .ROUTE ; Start at 16:52; Stop 05/18/16 at 16:53; Status DC Sodium Chloride (Iv Sodium Chloride 0.9% 1000ml Bag) 1,000 ml @ 1,000 mls/hr Q1H PRN IV hypotension; Start 05/18/16 at 17:23; Stop 05/18/16 at 23:22; Status DC Diphenhydramine HCl (Benadryl) 75 mg 1X PRN PRN IV ITCHING; Start 05/18/16 at 17:30; Stop 05/19/16 at 17:29; Status DC Info (PHARMACY MONITORING -- do not chart) 1 each PRN DAILY PRN MC SEE COMMENTS ; Start 05/18/16 at 17:30 Info (PHARMACY MONITORING -- do not chart) 1 each PRN DAILY PRN MC SEE COMMENTS ; Start 05/18/16 at 17:30; Status UNV Lidocaine/Sodium Bicarbonate (Buffered Lidocaine 1%) 3 ml 1X ONCE IJ Last administered on 05/18/16t 17:34; Start 05/18/16 at 17:30; Stop 05/18/16 at 17:34 ; Status DC Heparin Sodium/ Sodium Chloride 60 unit 1X ONCE IV ; Start 05/18/16 at 17:30; Stop 05/18/16 at 17:34; Status DC Insulin Aspart (Novolog Vial) 10 unit 1X ONCE SQ ; Start 05/18/16 at 18:30; Stop 05/18/16 at 18:31; Status Cancel Insulin Human Regular 10 unit 10 unit 1X ONCE IV ; Start 05/18/16 at 19:00; Stop 05/18/16 at 19:01; Status DC Propofol (Diprivan) 100 ml @ 0 mls/hr CONT PRN IV . Last administered on 02:10; Start 05/18/16 at 19:00; Stop 05/21/16 at 07:32; Status DC Darbepoetin Jude (Aranesp) 60 mcg [id number] SQ ; Start 05/19/16 at 21:00 Diphenhydramine HCl (Benadryl) 50 mg 1X ONCE IM Last administered on 05/19/16 13:27; Start 05/19/16 at 13:15; Stop 05/19/16 at 13:16; Status DC Warfarin Sodium (Coumadin - No Dose Today) 1 each 1X WARF ONCE MC ; Start at 16:00; Stop 05/19/16 at 16:01; Status DC Hydralazine HCl (Apresoline) 10 mg PRN Q4HRS PRN IVP ELEVATED BP, SEE COMMENTS Last administered on 05/19/16 23:57; Start 05/19/16 at 16:15 Amlodipine Besylate (Norvasc) 10 mg 1X ONCE PO Last administered on 05/19/16 17:34; Start 05/19/16 at 17:30; Stop 05/19/16 at 17:31; Status DC Lisinopril (Prinivil) 20 mg 1X ONCE PO Last administered on 05/19/16 17:34; Start 05/19/16 at 17:30; Stop 05/19/16 at 17:31; Status DC Metoprolol Succinate (Toprol Xl) 200 mg 1X ONCE PO Last administered on 17:34; Start 05/19/16 at 17:30; Stop 05/19/16 at 17:31; Status DC Lidocaine HCl 2 ml 2 ml STK-MED ONCE .ROUTE ; Start 05/20/16 at 08:19; Stop at 08:20; Status DC Sodium Chloride (Iv Sodium Chloride 0.9% 1000ml Bag) 1,000 ml @ 1,000 mls/hr Q1H PRN IV hypotension; Start 05/20/16 at 09:24; Stop 05/20/16 at 15:23; Status DC Diphenhydramine HCl (Benadryl) 25 mg 1X PRN PRN IV ITCHING Last administered on 05/20/16 09:36; Start 05/20/16 at 09:30; Stop 05/21/16 at 07:32; Status DC Diphenhydramine HCl (Benadryl) 25 mg 1X PRN PRN IV ITCHING Last administered on 05/20/16 09:59; Start 05/20/16 at 09:30; Stop 05/21/16 at 07:32; Status DC Sodium Chloride (Normal Saline Flush) 10 ml 1X PRN PRN IV AP catheter pack; Start 05/20/16 at 09:30; Stop 05/21/16 at 09:29; Status DC Sodium Chloride (Normal Saline Flush) 10 ml 1X PRN PRN 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; Start 05/20/16 at 09:30; Stop 05/21/16 at 09:29; Status DC Info (PHARMACY MONITORING -- do not chart) 1 each PRN DAILY PRN MC SEE COMMENTS ; Start 05/20/16 at 09:30; Stop 05/20/16 at 09:31; Status DC Info (PHARMACY MONITORING -- do not chart) 1 each PRN DAILY PRN MC SEE COMMENTS ; Start 05/20/16 at 09:30; Status Cancel Warfarin Sodium (Coumadin) 3 mg 1X WARF ONCE PO Last administered on 05/20/16 16:26; Start 05/20/16 at 16:00; Stop 05/20/16 at 16:01; Status DC Dextrose 25 gm STK-MED ONCE IV ; Start 05/19/16 at 12:00; Stop 05/20/16 at 16:10; Status DC Epinephrine HCl 1 mg STK-MED ONCE .ROUTE ; Start 05/19/16 at 12:00; Stop 05/20/16 at 16:10; Status DC Sodium Bicarbonate 50 meq STK-MED ONCE .ROUTE ; Start 05/19/16 at 12:00; Stop 05/20/16 at 16:10; Status DC Diphenhydramine HCl (Benadryl) 50 mg 1X ONCE IVP Last administered on 04:02; Start 05/21/16 at 04:00; Stop 05/21/16 at 10:18; Status DC Lidocaine HCl (Xylocaine-Mpf 1% Vial) 2 ml STK-MED ONCE .ROUTE ; Start 05/20/16 at 08:00; Stop 05/21/16 at 08:00; Status DC Fentanyl Citrate (Fentanyl 2ml Vial) 50 mcg PRN Q3HRS PRN IV PAIN Last administered on 05/22/16 09:24; Start 05/21/16 at 10:27 Morphine Sulfate 2 mg PRN Q3HRS PRN IV PAIN; Start 05/21/16 at 10:27 Morphine Sulfate 4 mg PRN Q3HRS PRN IV PAIN Last administered on 05/22/16 10:08 ; Start 05/21/16 at 10:27 Diphenhydramine HCl (Benadryl) 50 mg PRN Q6HRS PRN IVP itching Last administered on 05/22/16 10:23; Start 05/21/16 at 10:30 Ondansetron HCl (Zofran) 4 mg PRN Q6HRS PRN IV NAUSEA/VOMITING; Start 05/21/16 at 11:15 Warfarin Sodium 3 mg 3 mg 1X WARF ONCE PO Last administered on 05/21/16 15:08 ; Start 05/21/16 at 16:00; Stop 05/21/16 at 16:01; Status DC Sodium Chloride (Iv Sodium Chloride 0.9% 1000ml Bag) 1,000 ml @ 1,000 mls/hr Q1H PRN IV hypotension; Start 05/22/16 at 09:36; Stop 05/22/16 at 15:35 Diphenhydramine HCl (Benadryl) 25 mg 1X PRN PRN IV ITCHING; Start 05/22/16 at 09 :45; Stop 05/22/16 at 19:00 Sodium Chloride (Normal Saline Flush) 10 ml 1X PRN PRN IV AP catheter pack; Start 05/22/16 at 09:45; Stop 05/22/16 at 19:00 Sodium Chloride (Normal Saline Flush) 10 ml 1X PRN PRN 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; Start 05/22/16 at 09:45; Stop 05/22/16 at 19:00 Info (PHARMACY MONITORING -- do not chart) 1 each PRN DAILY PRN MC SEE COMMENTS ; Start 05/22/16 at 09:45; Status UNV Info (PHARMACY MONITORING -- do not chart) 1 each PRN DAILY PRN MC SEE COMMENTS ; Start 05/22/16 at 09:45; Status UNV Warfarin Sodium (Coumadin) 2 mg 1X WARF ONCE PO ; Start 05/22/16 at 16:00; Stop 05/22/16 at 16:01 Active Scripts Active Zofran Odt (Ondansetron) 4 Mg Tab.rapdis 1 Tab SL Q8HRS PRN Reported Percocet 7.5-325 Mg Tablet (Oxycodone/Acetaminophen) 1 Each Tablet 1 Tab PO PRN Q8HRS PRN Xanax (Alprazolam) 0.25 Mg Tablet 2 Mg PO TID PRN Metoprolol Succinate ( Xl ) (Metoprolol Succinate) 200 Mg Tab.er.24h 1 Tab PO DAILY Hydralazine Hcl 50 Mg Tablet 1 Tab PO TID Amlodipine Besylate 10 Mg Tablet 1 Tab PO DAILY Vitals/I & O Vital Sign - Last 24 Hours 05/21/16 05/21/16 05/21/16 05/21/16 15:00 15:07 16:19 17:52 Temp 98.8 98.8 Pulse 102 Resp 16 B/P 161/55 Pulse Ox 89 89 98 98 O2 Delivery Nasal Cannula Nasal Cannula Nasal Cannula Nasal Cannula O2 Flow Rate 2.0 2.0 2.0 2.0 05/21/16 05/21/16 05/21/16 05/21/16 19:34 20:00 20:22 23:46 Temp 99.8 98.7 99.8 98.7 Pulse 110 110 112 Resp 18 18 B/P 178/62 178/62 174/40 Pulse Ox 90 91 O2 Delivery Room Air Nasal Cannula Room Air O2 Flow Rate 2.0 05/22/16 05/22/16 05/22/16 05/22/16 00:00 03:00 03:09 03:50 Temp 99.1 99.1 Pulse 116 Resp 17 B/P 146/106 Pulse Ox 92 O2 Delivery Nasal Cannula Nasal Cannula Nasal Cannula Nasal Cannula O2 Flow Rate 2.0 2.0 05/22/16 05/22/16 05/22/16 05/22/16 06:07 06:43 07:00 08:00 Temp 98.6 98.6 Pulse 114 Resp 20 B/P 179/59 Pulse Ox 92 88 O2 Delivery Nasal Cannula Nasal Cannula Nasal Cannula Nasal Cannula O2 Flow Rate 2.0 2.0 2.0 05/22/16 05/22/16 05/22/16 05/22/16 08:43 08:43 08:43 08:44 Pulse 114 114 114 114 B/P 179/59 179/59 179/59 179/59 05/22/16 05/22/16 05/22/16 05/22/16 09:24 09:54 10:08 10:38 Resp 19 19 19 Pulse Ox 88 88 88 88 O2 Delivery Nasal Cannula Nasal Cannula Nasal Cannula Nasal Cannula O2 Flow Rate 2.0 2.0 2.0 2.0 Intake and Output 05/21/16 05/21/16 05/22/16 15:00 23:00 07:00 Intake Total 300 ml Output Total 0 ml 0 ml Balance 0 ml 300 ml AUNG MATAMOROS MD May 22, 2016 13:41
[2016-05-22 15:00] VITALS: BP 183/51
[2016-05-22] MEDS ORDERED: WARFARIN 2 MG TABLET. PO ONE (16:00)
[2016-05-22 19:00] VITALS: BP 202/74
[2016-05-22] MEDS: METOCLOPRAMIDE HCL 10 MG/2 ML VIAL. IV PRN (19:45)
[2016-05-22 23:00] VITALS: BP 190/96
[2016-05-23] VITALS (7 sets, daily range): BP systolic 144–198; BP diastolic 42–102
[2016-05-23] MEDS: FENTANYL PF 100 MCG/2 ML VIAL. IV PRN ×6 (01:41→18:22)
[2016-05-23] MEDS: MORPHINE SULFATE 4 MG/ML DISP.SYRIN. IV PRN ×5 (02:22→22:11)
[2016-05-23] MEDS: DIPHENHYDRAMINE 50 MG/ML VIAL IVP PRN ×3 (05:21→18:21)
[2016-05-23 06:14] LABS: BASO # 0.1 x10^3/uL (0.0-0.2); BASO % 1 % (0-3); EOS % 3 % (0-3); HEMATOCRIT 23.7 % (36.0-47.0); HEMOGLOBIN 7.5 g/dL (12.0-15.5); LYMPH # 0.7 x10^3/uL (1.0-4.8); LYMPH % 6 % (24-48); MEAN CORPUSCULAR HEMOGLOBIN 30 pg (25-35); MEAN CORPUSCULAR HGB CONC 32 g/dL (31-37); MEAN CORPUSCULAR VOLUME 95 fL (79-100); MONO % 6 % (0-9); NEUT % 85 % (31-73); PLATELET COUNT 206 x10^3/uL (140-400); RED BLOOD COUNT 2.49 x10^6/uL (3.50-5.40); RED CELL DISTRIBUTION WIDTH 16.2 % (11.5-14.5); WHITE BLOOD COUNT 12.8 x10^3/uL (4.0-11.0)
[2016-05-23 06:25] LABS: PROTHROMBIN TIME PATIENT 21.6 SEC (11.7-14.0)
[2016-05-23 06:51] LABS: CALCIUM 8.8 mg/dL (8.5-10.1); CREATININE 4.7 mg/dL (0.6-1.0); GFR 11.2; POTASSIUM 4.8 mmol/L (3.5-5.1)
[2016-05-23] MEDS: ONDANSETRON PF 4 MG/2 ML VIAL. IV PRN (07:47)
[2016-05-23] MEDS: LORAZEPAM 2 MG/ML VIAL IV PRN ×2 (07:47→19:38)
[2016-05-23] MEDS: LISINOPRIL 20 MG TABLET PO SCH (07:50)
[2016-05-23] MEDS: AMLODIPINE BESYLATE 10 MG TABLET PO SCH (07:50)
[2016-05-23] MEDS: HYDRALAZINE 50 MG TABLET PO SCH ×3 (07:51→20:22)
[2016-05-23] MEDS: METOPROLOL SUCC 24HR ER 100 MG TAB.ER.24H. PO SCH (07:51)
[2016-05-23] MEDS: SENNOSIDES/DOCUSATE 8.6/50MG TABLET. PO SCH (07:52)
[2016-05-23] MEDS: POLYETHYLENE GLYCOL 3350 17 GM PACKET. PO SCH ×2 (07:52→19:33)
[2016-05-23] MEDS: FERROUS SULFATE 325 MG TABLET PO SCH ×2 (07:52→18:22)
[2016-05-23] MEDS: MULTIVITAMIN with MINERAL TABLET. PO SCH (07:52)
[2016-05-23] MEDS: MORPHINE SULFATE 2 MG/ML DISP.SYRIN. IV PRN ×2 (09:29→15:45)
--- NOTE | 2016-05-23 10:28 | PDOC ---
ORTHO PROGRESS NOTES Subjective Mid sternal CP, hurts with coughing. Hip pain unchanged. PT in bed yesterday. Asks about going home Vitals Vital Signs Date Time Temp Pulse Resp B/P Pulse Ox O2 Delivery O2 Flow Rate FiO2 05/23/16 09:59 17 89 Nasal Cannula 3.5 05/23/16 07:51 109 193/63 05/23/16 07:00 98.4 98.4 Labs Laboratory Tests Test 05/22/16 04:50 05/23/16 05:40 White Blood Count 11.9x10^3/uL (4.0-11.0) 12.8x10^3/uL (4.0-11.0) Red Blood Count 2.36x10^6/uL (3.50-5.40) 2.49x10^6/uL (3.50-5.40) Hemoglobin 7.2g/dL (12.0-15.5) 7.5g/dL (12.0-15.5) Hematocrit 22.2% (36.0-47.0) 23.7% (36.0-47.0) Mean Corpuscular Volume 94fL (79-100) 95fL (79-100) Mean Corpuscular Hemoglobin 31pg (25-35) 30pg (25-35) Mean Corpuscular Hemoglobin Concent 32g/dL (31-37) 32g/dL (31-37) Red Cell Distribution Width 16.8% (11.5-14.5) 16.2% (11.5-14.5) Platelet Count 171x10^3/uL (140-400) 206x10^3/uL (140-400) Neutrophils (%) (Auto) 83% (31-73) 85% (31-73) Lymphocytes (%) (Auto) 7% (24-48) 6% (24-48) Monocytes (%) (Auto) 6% (0-9) 6% (0-9) Eosinophils (%) (Auto) 3% (0-3) 3% (0-3) Basophils (%) (Auto) 1% (0-3) 1% (0-3) Neutrophils # (Auto) 9.9x10^3uL (1.8-7.7) 10.8x10^3uL (1.8-7.7) Lymphocytes # (Auto) 0.8x10^3/uL (1.0-4.8) 0.7x10^3/uL (1.0-4.8) Monocytes # (Auto) 0.8x10^3/uL (0.0-1.1) 0.8x10^3/uL (0.0-1.1) Eosinophils # (Auto) 0.3x10^3/uL (0.0-0.7) 0.4x10^3/uL (0.0-0.7) Basophils # (Auto) 0.1x10^3/uL (0.0-0.2) 0.1x10^3/uL (0.0-0.2) Prothrombin Time 21.1SEC (11.7-14.0) 21.6SEC (11.7-14.0) Prothromb Time International Ratio 1.9 (0.8-1.1) 2.0 (0.8-1.1) Sodium Level 137mmol/L (136-145) 136mmol/L (136-145) Potassium Level 5.0mmol/L (3.5-5.1) 4.8mmol/L (3.5-5.1) Chloride Level 99mmol/L (98-107) 98mmol/L (98-107) Carbon Dioxide Level 25mmol/L (21-32) 27mmol/L (21-32) Anion Gap 13 (6-14) 11 (6-14) Blood Urea Nitrogen 48mg/dL (7-20) 33mg/dL (7-20) Creatinine 6.3mg/dL (0.6-1.0) 4.7mg/dL (0.6-1.0) Estimated GFR (Cockcroft-Gault) 8.0 11.2 Glucose Level 108mg/dL (70-99) 103mg/dL (70-99) Calcium Level 8.8mg/dL (8.5-10.1) 8.8mg/dL (8.5-10.1) Laboratory Tests Test 05/23/16 05:40 White Blood Count 12.8x10^3/uL (4.0-11.0) Red Blood Count 2.49x10^6/uL (3.50-5.40) Hemoglobin 7.5g/dL (12.0-15.5) Hematocrit 23.7% (36.0-47.0) Mean Corpuscular Volume 95fL (79-100) Mean Corpuscular Hemoglobin 30pg (25-35) Mean Corpuscular Hemoglobin Concent 32g/dL (31-37) Red Cell Distribution Width 16.2% (11.5-14.5) Platelet Count 206x10^3/uL (140-400) Neutrophils (%) (Auto) 85% (31-73) Lymphocytes (%) (Auto) 6% (24-48) Monocytes (%) (Auto) 6% (0-9) Eosinophils (%) (Auto) 3% (0-3) Basophils (%) (Auto) 1% (0-3) Neutrophils # (Auto) 10.8x10^3uL (1.8-7.7) Lymphocytes # (Auto) 0.7x10^3/uL (1.0-4.8) Monocytes # (Auto) 0.8x10^3/uL (0.0-1.1) Eosinophils # (Auto) 0.4x10^3/uL (0.0-0.7) Basophils # (Auto) 0.1x10^3/uL (0.0-0.2) Prothrombin Time 21.6SEC (11.7-14.0) Prothromb Time International Ratio 2.0 (0.8-1.1) Sodium Level 136mmol/L (136-145) Potassium Level 4.8mmol/L (3.5-5.1) Chloride Level 98mmol/L (98-107) Carbon Dioxide Level 27mmol/L (21-32) Anion Gap 11 (6-14) Blood Urea Nitrogen 33mg/dL (7-20) Creatinine 4.7mg/dL (0.6-1.0) Estimated GFR (Cockcroft-Gault) 11.2 Glucose Level 103mg/dL (70-99) Calcium Level 8.8mg/dL (8.5-10.1) Notes A and A in bed incision ok wiggles toes normal sensation toes warm Assessment and Plan no new recs per Ortho cont PT/OT ABERLE,IGNACIO S II MD May 23, 2016 10:28
--- NOTE | 2016-05-23 11:08 | RAD ---
Examination: Single frontal view chest History: History of right rib fractures, respiratory failure Comparison: 05/22/2016 Findings Vascular graft identified in the left innominate vein similar to prior exam. Mild cardiomegaly. Left lung airspace opacities likely atelectasis or infiltrates again identified. Mild increase in right lower lobe lung consolidation changes likely pneumonia or atelectasis and effusion. There is interval increase in prominence of bilateral interstitial lung markings likely due to congestive changes. Displaced right rib fractures again identified. Impression: 1. Mild increase in right lower lobe lung consolidation could be pneumonia or atelectasis and effusion with increasing mild prominent appearing bilateral interstitial lung markings, congestive changes.
[2016-05-23] MEDS: LABETALOL 20 MG/4 ML DISP.SYRIN. IVP PRN (11:44)
--- NOTE | 2016-05-23 14:37 | PDOC ---
PROGRESS NOTES Chief Complaint Chief Complaint 0. S/P code blue after hip replacement 1. Abdominal pain; chronic, unclear etiology 2. Narcotic dependence. 3. Hx osteomyelitis, and replaced hip hardware. 4. elevated Alk Phos; isolated. 5. ESRD: HD M/W/F 6. Anemia; severe, 2/2 ESRD. History of Present Illness History of Present Illness Patient lying down in bed when evaluated this AM. Pt has worsening coarse- sounding cough and shortness of breath. / CXR consistent with 05/21 showing worsening moderate bibasilar atelectasis/infiltrate, and pt has O2 sat 89% on 3.5 L NC. WBC has risen to 12.8. Continues to complain of pain 2/2 to hip surgery and rib fractures. Pt expressed desire to have dosing frequency increased. Discussed with the pt the need to treat the pain somewhat conservatively given her worsening respiratory symptoms, as narcotics may decrease respiratory drive. Vitals Vitals Vital Signs Date Time Temp Pulse Resp B/P Pulse Ox O2 Delivery O2 Flow Rate FiO2 05/23/16 13:06 22 89 Nasal Cannula 3.5 05/23/16 11:44 111 198/102 05/23/16 11:00 98.1 98.1 Physical Exam General: Alert, Oriented X3, Cooperative Heart: Regular rate, Normal S1, Normal S2, No murmurs, Gallops Lungs: Other (diffuse coarse breath sounds. painful over R ribs, following code /CPR) Abdomen: Normal bowel sounds, Soft, No tenderness, No hepatosplenomegaly, No masses Extremities: No edema Skin: No rashes Labs LABS Laboratory Tests Test 05/23/16 05:40 White Blood Count 12.8x10^3/uL (4.0-11.0) Red Blood Count 2.49x10^6/uL (3.50-5.40) Hemoglobin 7.5g/dL (12.0-15.5) Hematocrit 23.7% (36.0-47.0) Mean Corpuscular Volume 95fL (79-100) Mean Corpuscular Hemoglobin 30pg (25-35) Mean Corpuscular Hemoglobin Concent 32g/dL (31-37) Red Cell Distribution Width 16.2% (11.5-14.5) Platelet Count 206x10^3/uL (140-400) Neutrophils (%) (Auto) 85% (31-73) Lymphocytes (%) (Auto) 6% (24-48) Monocytes (%) (Auto) 6% (0-9) Eosinophils (%) (Auto) 3% (0-3) Basophils (%) (Auto) 1% (0-3) Neutrophils # (Auto) 10.8x10^3uL (1.8-7.7) Lymphocytes # (Auto) 0.7x10^3/uL (1.0-4.8) Monocytes # (Auto) 0.8x10^3/uL (0.0-1.1) Eosinophils # (Auto) 0.4x10^3/uL (0.0-0.7) Basophils # (Auto) 0.1x10^3/uL (0.0-0.2) Prothrombin Time 21.6SEC (11.7-14.0) Prothromb Time International Ratio 2.0 (0.8-1.1) Sodium Level 136mmol/L (136-145) Potassium Level 4.8mmol/L (3.5-5.1) Chloride Level 98mmol/L (98-107) Carbon Dioxide Level 27mmol/L (21-32) Anion Gap 11 (6-14) Blood Urea Nitrogen 33mg/dL (7-20) Creatinine 4.7mg/dL (0.6-1.0) Estimated GFR (Cockcroft-Gault) 11.2 Glucose Level 103mg/dL (70-99) Calcium Level 8.8mg/dL (8.5-10.1) Review of Systems Review of Systems afebrile + pain in the hip and ribs + generalized weakness + coarse cough, SOB Assessment and Plan Assessmemt and Plan ASSESSMENT: 0. S/P code blue after hip replacement 1. Abdominal pain; chronic, unclear etiology 2. Narcotic dependence. 3. Hx osteomyelitis, and replaced hip hardware. 4. elevated Alk Phos; isolated. 5. ESRD: HD M/W/F 6. Anemia; severe, 2/2 ESRD. PLAN: - increasing WBC, worsening coarseness, cough and SOB; concerned that pt could be developing pneumonia - empiric treatment with IV Rocephin 1 mg q 24h - PRN duonebs breathing treatment - cont supplemental O2 - SW to LTAC eval - awaiting thrombectomy of the L arm. - Pulmonology following, appreciate input; CXR showing worsening moderate bibasilar atelectasis/infiltrate - cont cardiac monitoring - HD MWF - cont wound care - recheck daily labs - PTOT - cont narcotics for hip and rib pain - cont IV Zofran for nausea - cont Benadryl for itchiness - appreciate all subspecialists involved in the care of this patient Problems: Comment Review of Relevant I have reviewed the following items lynnette (where applicable) has been applied. Labs Laboratory Tests Test 05/22/16 04:50 05/23/16 05:40 White Blood Count 11.9x10^3/uL (4.0-11.0) 12.8x10^3/uL (4.0-11.0) Red Blood Count 2.36x10^6/uL (3.50-5.40) 2.49x10^6/uL (3.50-5.40) Hemoglobin 7.2g/dL (12.0-15.5) 7.5g/dL (12.0-15.5) Hematocrit 22.2% (36.0-47.0) 23.7% (36.0-47.0) Mean Corpuscular Volume 94fL (79-100) 95fL (79-100) Mean Corpuscular Hemoglobin 31pg (25-35) 30pg (25-35) Mean Corpuscular Hemoglobin Concent 32g/dL (31-37) 32g/dL (31-37) Red Cell Distribution Width 16.8% (11.5-14.5) 16.2% (11.5-14.5) Platelet Count 171x10^3/uL (140-400) 206x10^3/uL (140-400) Neutrophils (%) (Auto) 83% (31-73) 85% (31-73) Lymphocytes (%) (Auto) 7% (24-48) 6% (24-48) Monocytes (%) (Auto) 6% (0-9) 6% (0-9) Eosinophils (%) (Auto) 3% (0-3) 3% (0-3) Basophils (%) (Auto) 1% (0-3) 1% (0-3) Neutrophils # (Auto) 9.9x10^3uL (1.8-7.7) 10.8x10^3uL (1.8-7.7) Lymphocytes # (Auto) 0.8x10^3/uL (1.0-4.8) 0.7x10^3/uL (1.0-4.8) Monocytes # (Auto) 0.8x10^3/uL (0.0-1.1) 0.8x10^3/uL (0.0-1.1) Eosinophils # (Auto) 0.3x10^3/uL (0.0-0.7) 0.4x10^3/uL (0.0-0.7) Basophils # (Auto) 0.1x10^3/uL (0.0-0.2) 0.1x10^3/uL (0.0-0.2) Prothrombin Time 21.1SEC (11.7-14.0) 21.6SEC (11.7-14.0) Prothromb Time International Ratio 1.9 (0.8-1.1) 2.0 (0.8-1.1) Sodium Level 137mmol/L (136-145) 136mmol/L (136-145) Potassium Level 5.0mmol/L (3.5-5.1) 4.8mmol/L (3.5-5.1) Chloride Level 99mmol/L (98-107) 98mmol/L (98-107) Carbon Dioxide Level 25mmol/L (21-32) 27mmol/L (21-32) Anion Gap 13 (6-14) 11 (6-14) Blood Urea Nitrogen 48mg/dL (7-20) 33mg/dL (7-20) Creatinine 6.3mg/dL (0.6-1.0) 4.7mg/dL (0.6-1.0) Estimated GFR (Cockcroft-Gault) 8.0 11.2 Glucose Level 108mg/dL (70-99) 103mg/dL (70-99) Calcium Level 8.8mg/dL (8.5-10.1) 8.8mg/dL (8.5-10.1) Laboratory Tests Test 05/23/16 05:40 White Blood Count 12.8x10^3/uL (4.0-11.0) Red Blood Count 2.49x10^6/uL (3.50-5.40) Hemoglobin 7.5g/dL (12.0-15.5) Hematocrit 23.7% (36.0-47.0) Mean Corpuscular Volume 95fL (79-100) Mean Corpuscular Hemoglobin 30pg (25-35) Mean Corpuscular Hemoglobin Concent 32g/dL (31-37) Red Cell Distribution Width 16.2% (11.5-14.5) Platelet Count 206x10^3/uL (140-400) Neutrophils (%) (Auto) 85% (31-73) Lymphocytes (%) (Auto) 6% (24-48) Monocytes (%) (Auto) 6% (0-9) Eosinophils (%) (Auto) 3% (0-3) Basophils (%) (Auto) 1% (0-3) Neutrophils # (Auto) 10.8x10^3uL (1.8-7.7) Lymphocytes # (Auto) 0.7x10^3/uL (1.0-4.8) Monocytes # (Auto) 0.8x10^3/uL (0.0-1.1) Eosinophils # (Auto) 0.4x10^3/uL (0.0-0.7) Basophils # (Auto) 0.1x10^3/uL (0.0-0.2) Prothrombin Time 21.6SEC (11.7-14.0) Prothromb Time International Ratio 2.0 (0.8-1.1) Sodium Level 136mmol/L (136-145) Potassium Level 4.8mmol/L (3.5-5.1) Chloride Level 98mmol/L (98-107) Carbon Dioxide Level 27mmol/L (21-32) Anion Gap 11 (6-14) Blood Urea Nitrogen 33mg/dL (7-20) Creatinine 4.7mg/dL (0.6-1.0) Estimated GFR (Cockcroft-Gault) 11.2 Glucose Level 103mg/dL (70-99) Calcium Level 8.8mg/dL (8.5-10.1) Medications Current Medications Ondansetron HCl (Zofran) 4 mg 1X ONCE IV Last administered on 05/15/16 19:17 ; Start 05/15/16 at 19:00; Stop 05/15/16 at 19:01; Status DC Morphine Sulfate 4 mg 1X ONCE IV Last administered on 05/15/16 19:19; Start 05/15/16 at 19:00; Stop 05/15/16 at 19:01; Status DC Hydralazine HCl (Apresoline) 10 mg 1X ONCE IVP Last administered on 05/15/16 19:21; Start 05/15/16 at 19:00; Stop 05/15/16 at 19:01; Status DC Lorazepam (Ativan) 1 mg 1X ONCE PO Last administered on 05/15/16 20:04; Start 05/15/16 at 19:45; Stop 05/15/16 at 19:46; Status DC Alprazolam (Xanax) 2 mg PRN TID PRN PO ANXIETY / AGITATION; Start 05/15/16 at 20:45; Stop 05/15/16 at 20:47; Status DC Amlodipine Besylate (Norvasc) 10 mg DAILY PO Last administered on 05/23/16 07: 50; Start 05/16/16 at 09:00 Hydralazine HCl (Apresoline) 50 mg TID PO Last administered on 05/23/16 07:51; Start 05/16/16 at 09:00 Ondansetron HCl (Zofran Odt) 4 mg PRN Q8HRS PRN PO NAUSEA; Start 05/15/16 at 20 :45; Stop 05/21/16 at 10:18; Status DC Oxycodone/ Acetaminophen (Percocet 7.5/ 325) 1 tab PRN Q8HRS PRN PO PAIN; Start 05/15/16 at 20:45; Status Cancel Metoprolol Succinate (Toprol Xl) 200 mg DAILY PO Last administered on 05/23/16 07:51; Start 05/16/16 at 09:00 Alprazolam (Xanax) 2 mg PRN TID PRN PO ANXIETY / AGITATION; Start 05/15/16 at 20:47 Morphine Sulfate 4 mg 1X ONCE IV Last administered on 05/15/16 21:13; Start 05/15/16 at 21:00; Stop 05/15/16 at 21:01; Status DC Ondansetron HCl (Zofran) 4 mg 1X ONCE IV Last administered on 05/15/16 21:08 ; Start 05/15/16 at 21:00; Stop 05/15/16 at 21:01; Status DC Labetalol HCl (Normodyne) 20 mg PRN Q6HRS PRN IVP HYPERTENSION, SEE COMMENTS Last administered on 05/23/16 11:44; Start 05/15/16 at 23:30 Lorazepam (Ativan) 1 mg PRN Q6HRS PRN IV ANXIETY / AGITATION Last administered on 05/16/16 20:22; Start 05/15/16 at 23:30; Stop 05/16/16 at 22:44; Status DC Morphine Sulfate 2 mg PRN Q2HR PRN IV PAIN Last administered on 05/16/16 10:52 ; Start 05/15/16 at 23:30; Stop 05/16/16 at 11:42; Status DC Morphine Sulfate 4 mg PRN Q2HR PRN IV PAIN; Start 05/15/16 at 23:30; Stop 05/16 at 11:42; Status DC Diphenhydramine HCl (Benadryl) 50 mg PRN Q6HRS PRN IVP ITCHING Last administered on 05/16/16 20:23; Start 05/15/16 at 23:30; Stop 05/16/16 at 22:44 ; Status DC Morphine Sulfate 1 mg PRN Q2HR PRN IV PAIN Last administered on 05/17/16 18:38 ; Start 05/16/16 at 11:45; Stop 05/21/16 at 10:18; Status DC Diphenhydramine HCl (Benadryl) 25 mg PRN Q8HRS PRN IVP ITCHING Last administered on 05/18/16 04:54; Start 05/16/16 at 23:30; Stop 05/18/16 at 15:51 ; Status DC Lorazepam (Ativan) 0.5 mg PRN Q8HRS PRN IV ANXIETY / AGITATION Last administered on 05/23/16 07:47; Start 05/16/16 at 23:30 Metoclopramide HCl (Reglan) 5 mg PRN Q8HRS PRN IV NAUSEA/VOMITING Last administered on 05/22/16 19:45; Start 05/16/16 at 22:45 Polyethylene Glycol (miraLAX PACKET) 17 gm BID PO ; Start 05/17/16 at 09:00 Lidocaine HCl 2 ml 2 ml STK-MED ONCE .ROUTE ; Start 05/17/16 at 11:20; Stop at 11:21; Status DC Sodium Chloride (Iv Sodium Chloride 0.9% 1000ml Bag) 1,000 ml @ 1,000 mls/hr Q1H PRN IV hypotension; Start 05/17/16 at 12:42; Stop 05/17/16 at 18:41; Status DC Diphenhydramine HCl (Benadryl) 25 mg 1X PRN PRN IV ITCHING; Start 05/17/16 at 12:45; Stop 05/18/16 at 12:44; Status DC Diphenhydramine HCl (Benadryl) 25 mg 1X PRN PRN IV ITCHING; Start 05/17/16 at 12:45; Stop 05/18/16 at 12:44; Status DC Info (PHARMACY MONITORING -- do not chart) 1 each PRN DAILY PRN MC SEE COMMENTS ; Start 05/17/16 at 12:45; Status UNV Info 1 each 1 each PRN DAILY PRN MC SEE COMMENTS; Start 05/17/16 at 12:45; Status UNV Morphine Sulfate/ Ketorolac Tromethamine/ Ropivacaine/ Epinephrine HCl/ Sodium Chloride (Morphine 5mg Syringe/Toradol/ Naropin 0.5%/ Adrenalin/Iv Sodium Chloride 0.9% 100ml) 100.5 ml @ 100.5 mls/ hr 1X PERIOP ONCE INT ART Last administered on 05/18/16 08:20; Start 05/18/16 at 06:00; Stop 05/18/16 at 06:59 ; Status DC Ondansetron HCl (Zofran) 4 mg PRN Q6HRS PRN IV Nausea; Start 05/18/16 at 07:00 ; Stop 05/19/16 at 06:59; Status DC Fentanyl Citrate (Fentanyl 2ml Vial) 25 mcg PRN Q5MIN PRN IV MILD PAIN Last administered on 05/18/16 16:42; Start 05/18/16 at 07:00; Stop 05/19/16 at 06:59 ; Status DC Fentanyl Citrate (Fentanyl 2ml Vial) 50 mcg PRN Q5MIN PRN IV MODERATE PAIN Last administered on 05/19/16 02:10; Start 05/18/16 at 07:00; Stop 05/19/16 at 06 :59; Status DC Morphine Sulfate 1 mg PRN Q10MIN PRN IV SEVERE PAIN; Start 05/18/16 at 07:00; Stop 05/19/16 at 06:59; Status DC Lidocaine HCl 2 ml 1X PRN PRN ID IV START; Start 05/18/16 at 07:00; Stop at 06:59; Status DC Hydromorphone HCl (Dilaudid) 0.5 mg PRN Q10MIN PRN IV SEVERE PAIN, Second choice Last administered on 05/19/16 00:53; Start 05/18/16 at 07:00; Stop at 06:59; Status DC Prochlorperazine Edisylate 5 mg 5 mg PACU PRN PRN IV NAUSEA; Start 05/18/16 at 07:00; Stop 05/19/16 at 06:59; Status DC Sodium Chloride (Iv Sodium Chloride 0.9% 1000ml Bag) 1,000 ml @ 30 mls/hr Q24H IV ; Start 05/18/16 at 07:00; Stop 05/19/16 at 07:48; Status DC Warfarin Sodium (Coumadin) 5 mg 1X ONCE PO Last administered on 05/17/16 16: 31; Start 05/17/16 at 17:00; Stop 05/17/16 at 17:01; Status DC Acetaminophen/ Hydrocodone Bitart (Lortab 7.5/325) 2 tab 1X ONCE PO ; Start at 05:30; Stop 05/18/16 at 05:31; Status Cancel Acetaminophen/ Hydrocodone Bitart 2 tab 2 tab 1X PREOP PRN PO PRIOR TO PROCEDURE; Start 05/18/16 at 06:00; Stop 05/18/16 at 18:00; Status DC Cefazolin Sodium/ Dextrose 50 ml @ 100 mls/hr 1X PREOP PRN IV PRIOR TO PROCEDURE; Start 05/18/16 at 06:00; Stop 05/18/16 at 18:00; Status DC Morphine Sulfate/ Ketorolac Tromethamine/ Ropivacaine/ Epinephrine HCl/ Sodium Chloride (Morphine 5mg Syringe/Toradol/ Naropin 0.5%/ Adrenalin/Iv Sodium Chloride 0.9% 50ml) 100.5 ml @ 100.5 mls/ hr 1X PERIOP ONCE INT ART ; Start at 06:00; Stop 05/18/16 at 06:59; Status Cancel Dexamethasone Sodium Phosphate (Decadron) 20 mg STK-MED ONCE .ROUTE ; Start at 06:57; Stop 05/18/16 at 06:58; Status DC Ondansetron HCl 4 mg 4 mg STK-MED ONCE .ROUTE ; Start 05/18/16 at 06:57; Stop at 06:58; Status DC Propofol (Diprivan) 20 ml @ As Directed STK-MED ONCE IV ; Start 05/18/16 at 06: 57; Stop 05/18/16 at 06:58; Status DC Lidocaine HCl 100 mg STK-MED ONCE .ROUTE ; Start 05/18/16 at 06:57; Stop at 06:58; Status DC Fentanyl Citrate (Fentanyl 5ml Vial) 250 mcg STK-MED ONCE .ROUTE ; Start at 06:57; Stop 05/18/16 at 06:58; Status DC Midazolam HCl (Versed) 2 mg STK-MED ONCE .ROUTE ; Start 05/18/16 at 06:58; Stop 05/18/16 at 06:59; Status DC Rocuronium Coram 50 mg 50 mg STK-MED ONCE .ROUTE ; Start 05/18/16 at 06:58; Stop 05/18/16 at 06:59; Status DC Acetaminophen 100 ml @ As Directed STK-MED ONCE IV ; Start 05/18/16 at 07:13; Stop 05/18/16 at 07:14; Status DC Sodium Chloride 500 ml @ 30 mls/hr [id number] IV Last administered on 05/18/16t 07:45; Start 05/18/16 at 07:45; Stop 05/19/16 at 07:48; Status DC Cefazolin Sodium (Ancef 1gm Ivpb For Omni) 50 ml @ As Directed STK-MED ONCE IV ; Start 05/18/16 at 07:45; Stop 05/18/16 at 07:46; Status DC Fentanyl Citrate (Fentanyl 5ml Vial) 250 mcg STK-MED ONCE .ROUTE ; Start at 08:27; Stop 05/18/16 at 08:28; Status DC Rocuronium Coram (Zemuron) 50 mg STK-MED ONCE .ROUTE ; Start 05/18/16 at 08:27 ; Stop 05/18/16 at 08:28; Status DC Morphine Sulfate 5 mg 5 mg STK-MED ONCE .ROUTE ; Start 05/18/16 at 08:59; Stop 05/18/16 at 09:00; Status DC Cefazolin Sodium (Ancef 1gm Ivpb For Omni) 50 ml @ 100 mls/hr 1X PREOP PRN IV PER PROTOCOL Last administered on 05/18/16 08:06; Start 05/18/16 at 09:30; Stop 05/19/16 at 09:29; Status DC Lisinopril (Prinivil) 20 mg DAILY PO Last administered on 05/23/16 07:50; Start 05/18/16 at 11:30 Albuterol Sulfate (Ventolin Neb Soln) 2.5 mg STK-MED ONCE .ROUTE ; Start at 11:24; Stop 05/18/16 at 11:25; Status DC Morphine Sulfate 10 mg STK-MED ONCE .ROUTE ; Start 05/18/16 at 11:55; Stop 05/18 at 11:56; Status DC Cefazolin Sodium/ Dextrose 2 gm 2 gm STK-MED ONCE IV ; Start 05/18/16 at 07:30; Stop 05/18/16 at 12:41; Status DC Cefazolin Sodium (Ancef 1gm Ivpb For Omni) 50 ml @ As Directed STK-MED ONCE IV ; Start 05/18/16 at 13:02; Stop 05/18/16 at 13:03; Status DC Fentanyl Citrate (Fentanyl 5ml Vial) 250 mcg STK-MED ONCE .ROUTE ; Start at 13:27; Stop 05/18/16 at 13:28; Status DC Phenylephrine HCl 1 mg STK-MED ONCE IV ; Start 05/18/16 at 13:58; Stop 05/18/16 at 13:59; Status DC Insulin Human Regular (Novolin R Vial) 10 unit 1X ONCE IV ; Start 05/18/16 at 14:15; Stop 05/18/16 at 14:16; Status DC Acetaminophen/ Hydrocodone Bitart (Lortab 7.5/325) 1 tab PRN Q3HRS PRN PO PAIN ; Start 05/18/16 at 15:45; Stop 05/21/16 at 10:18; Status DC Acetaminophen/ Hydrocodone Bitart (Lortab 10/325) 1 tab PRN Q3HRS PRN PO PAIN; Start 05/18/16 at 15:45 Tramadol HCl (Ultram) 50 mg PRN QID PRN PO PAIN; Start 05/18/16 at 15:45; Stop 05/21/16 at 10:18; Status DC Oxycodone/ Acetaminophen (Percocet 5/325) 1 tab PRN Q3HRS PRN PO PAIN; Start at 15:45 Oxycodone/ Acetaminophen (Percocet 7.5/ 325) 1 tab PRN Q3HRS PRN PO PAIN; Start 05/18/16 at 15:45 Tramadol HCl (Ultram) 100 mg PRN Q3HRS PRN PO PAIN; Start 05/18/16 at 15:45 Morphine Sulfate 2 mg PRN Q1HR PRN IV PAIN; Start 05/18/16 at 15:45; Stop at 10:40; Status DC Fentanyl Citrate (Fentanyl 2ml Vial) 25 mcg PRN Q1HR PRN IV PAIN Last administered on 05/20/16 21:37; Start 05/18/16 at 15:45; Stop 05/21/16 at 10:18; Status DC Diphenhydramine HCl (Benadryl) 25 mg PRN Q6HRS PRN IV ITCHING Last administered on 05/21/16 10:08; Start 05/18/16 at 15:45; Stop 05/21/16 at 10:43; Status DC Warfarin Sodium (Coumadin Per Pharmacy) 1 each PRN DAILY PRN MC SEE COMMENTS Last administered on 05/23/16 13:34; Start 05/18/16 at 15:45 Multivitamins/ Calcium (Thera M Plus) 1 tab DAILY PO Last administered on 07:52; Start 05/19/16 at 09:00 Senna/Docusate Sodium (Senna Plus) 1 tab DAILY PO Last administered on 07:52; Start 05/19/16 at 09:00 Ferrous Sulfate 325 mg 325 mg BIDWMEALS PO Last administered on 05/23/16 07:52 ; Start 05/18/16 at 17:00 Dextrose/Sodium Chloride (Iv D5% - 1/2 NS) 1,000 ml @ 100 mls/hr Q10H IV ; Start 05/18/16 at 15:31; Stop 05/19/16 at 07:48; Status DC Magnesium Hydroxide (Milk Of Magnesia) 2,400 mg 1X PRN PRN PO CONSTIPATION; Start 05/19/16 at 06:00; Stop 05/20/16 at 05:59; Status DC Bisacodyl (Dulcolax Supp) 10 mg 1X PRN PRN [place] CONSTIPATION; Start 05/19/16 at 16 :00; Stop 05/20/16 at 15:59; Status DC Acetaminophen (Tylenol) 650 mg PRN Q4HRS PRN PO MILD PAIN / TEMP; Start at 15:45 Zolpidem Tartrate (Ambien) 5 mg PRN QHS PRN PO INSOMNIA, MAY REPEAT IN 1HR Last administered on 05/19/16 21:06; Start 05/18/16 at 15:45 Calcium Carbonate/ Glycine (Tums) 500 mg PRN QID PRN PO INDIGESTION; Start at 15:45 Morphine Sulfate 4 mg PRN Q1HR PRN IV PAIN Last administered on 05/21/16 08:11 ; Start 05/18/16 at 15:45; Stop 05/21/16 at 10:40; Status DC Morphine Sulfate 6 mg PRN Q1HR PRN IV PAIN Last administered on 05/20/16 20:04 ; Start 05/18/16 at 15:45; Stop 05/21/16 at 10:18; Status DC Morphine Sulfate 8 mg PRN Q1HR PRN IV PAIN; Start 05/18/16 at 15:45; Stop at 10:18; Status DC Sodium Chloride (Normal Saline Flush) 10 ml QSHIFT PRN IV AFTER MEDS AND BLOOD DRAWS; Start 05/18/16 at 15:45; Stop 05/21/16 at 07:32; Status DC Fentanyl Citrate (Fentanyl 2ml Vial) 50 mcg PRN Q1HR PRN IV PAIN Last administered on 05/21/16 10:09; Start 05/18/16 at 15:45; Stop 05/21/16 at 10:40; Status DC Prochlorperazine Edisylate (Compazine) 10 mg PRN Q4HRS PRN IV NAUSEA/VOMITING; Start 05/18/16 at 15:45 Dextrose 12.5 gm 12.5 gm PRN Q15MIN PRN IV SEE COMMENTS; Start 05/18/16 at 15: 45 Cefazolin Sodium/ Sodium Chloride (Ancef/Iv Sodium Chloride 0.9% 50ml) 50 ml @ 100 mls/hr Q6H IV Last administered on 05/19/16 05:00; Start 05/18/16 at 16:00 ; Stop 05/19/16 at 04:29; Status DC Warfarin Sodium (Coumadin) 5 mg 1X WARF ONCE PO ; Start 05/18/16 at 16:00; Stop 05/18/16 at 16:01; Status DC Lidocaine/Sodium Bicarbonate 20 ml 20 ml STK-MED ONCE IJ ; Start 05/18/16 at 16: 51; Stop 05/18/16 at 16:52; Status DC Heparin Sodium/ Sodium Chloride 500 ml @ As Directed STK-MED ONCE .ROUTE ; Start 05/18/16 at 16:51; Stop 05/18/16 at 16:52; Status DC Heparin Sodium (Porcine) 29687 unit 10,000 unit STK-MED ONCE .ROUTE ; Start at 16:52; Stop 05/18/16 at 16:53; Status DC Sodium Chloride (Iv Sodium Chloride 0.9% 1000ml Bag) 1,000 ml @ 1,000 mls/hr Q1H PRN IV hypotension; Start 05/18/16 at 17:23; Stop 05/18/16 at 23:22; Status DC Diphenhydramine HCl (Benadryl) 75 mg 1X PRN PRN IV ITCHING; Start 05/18/16 at 17:30; Stop 05/19/16 at 17:29; Status DC Info (PHARMACY MONITORING -- do not chart) 1 each PRN DAILY PRN MC SEE COMMENTS ; Start 05/18/16 at 17:30 Info (PHARMACY MONITORING -- do not chart) 1 each PRN DAILY PRN MC SEE COMMENTS ; Start 05/18/16 at 17:30; Status UNV Lidocaine/Sodium Bicarbonate (Buffered Lidocaine 1%) 3 ml 1X ONCE IJ Last administered on 05/18/16 17:34; Start 05/18/16 at 17:30; Stop 05/18/16 at 17:34 ; Status DC Heparin Sodium/ Sodium Chloride 60 unit 1X ONCE IV ; Start 05/18/16 at 17:30; Stop 05/18/16 at 17:34; Status DC Insulin Aspart (Novolog Vial) 10 unit 1X ONCE SQ ; Start 05/18/16 at 18:30; Stop 05/18/16 at 18:31; Status Cancel Insulin Human Regular 10 unit 10 unit 1X ONCE IV ; Start 05/18/16 at 19:00; Stop 05/18/16 at 19:01; Status DC Propofol (Diprivan) 100 ml @ 0 mls/hr CONT PRN IV . Last administered on 02:10; Start 05/18/16 at 19:00; Stop 05/21/16 at 07:32; Status DC Darbepoetin Jude (Aranesp) 60 mcg [id number] SQ ; Start 05/19/16 at 21:00 Diphenhydramine HCl (Benadryl) 50 mg 1X ONCE IM Last administered on 05/19/16 13:27; Start 05/19/16 at 13:15; Stop 05/19/16 at 13:16; Status DC Warfarin Sodium (Coumadin - No Dose Today) 1 each 1X WARF ONCE MC ; Start at 16:00; Stop 05/19/16 at 16:01; Status DC Hydralazine HCl (Apresoline) 10 mg PRN Q4HRS PRN IVP ELEVATED BP, SEE COMMENTS Last administered on 05/19/16 23:57; Start 05/19/16 at 16:15 Amlodipine Besylate (Norvasc) 10 mg 1X ONCE PO Last administered on 05/19/16 17:34; Start 05/19/16 at 17:30; Stop 05/19/16 at 17:31; Status DC Lisinopril (Prinivil) 20 mg 1X ONCE PO Last administered on 05/19/16 17:34; Start 05/19/16 at 17:30; Stop 05/19/16 at 17:31; Status DC Metoprolol Succinate (Toprol Xl) 200 mg 1X ONCE PO Last administered on 17:34; Start 05/19/16 at 17:30; Stop 05/19/16 at 17:31; Status DC Lidocaine HCl 2 ml 2 ml STK-MED ONCE .ROUTE ; Start 05/20/16 at 08:19; Stop at 08:20; Status DC Sodium Chloride (Iv Sodium Chloride 0.9% 1000ml Bag) 1,000 ml @ 1,000 mls/hr Q1H PRN IV hypotension; Start 05/20/16 at 09:24; Stop 05/20/16 at 15:23; Status DC Diphenhydramine HCl (Benadryl) 25 mg 1X PRN PRN IV ITCHING Last administered on 05/20/16 09:36; Start 05/20/16 at 09:30; Stop 05/21/16 at 07:32; Status DC Diphenhydramine HCl (Benadryl) 25 mg 1X PRN PRN IV ITCHING Last administered on 05/20/16 09:59; Start 05/20/16 at 09:30; Stop 05/21/16 at 07:32; Status DC Sodium Chloride (Normal Saline Flush) 10 ml 1X PRN PRN IV AP catheter pack; Start 05/20/16 at 09:30; Stop 05/21/16 at 09:29; Status DC Sodium Chloride (Normal Saline Flush) 10 ml 1X PRN PRN IV [employer] catheter pack; Start 05/20/16 at 09:30; Stop 05/21/16 at 09:29; Status DC Info (PHARMACY MONITORING -- do not chart) 1 each PRN DAILY PRN MC SEE COMMENTS ; Start 05/20/16 at 09:30; Stop 05/20/16 at 09:31; Status DC Info (PHARMACY MONITORING -- do not chart) 1 each PRN DAILY PRN MC SEE COMMENTS ; Start 05/20/16 at 09:30; Status Cancel Warfarin Sodium (Coumadin) 3 mg 1X WARF ONCE PO Last administered on 05/20/16 16:26; Start 05/20/16 at 16:00; Stop 05/20/16 at 16:01; Status DC Dextrose 25 gm STK-MED ONCE IV ; Start 05/19/16 at 12:00; Stop 05/20/16 at 16:10; Status DC Epinephrine HCl 1 mg STK-MED ONCE .ROUTE ; Start 05/19/16 at 12:00; Stop 05/20/16 at 16:10; Status DC Sodium Bicarbonate 50 meq STK-MED ONCE .ROUTE ; Start 05/19/16 at 12:00; Stop 05/20/16 at 16:10; Status DC Diphenhydramine HCl (Benadryl) 50 mg 1X ONCE IVP Last administered on 04:02; Start 05/21/16 at 04:00; Stop 05/21/16 at 10:18; Status DC Lidocaine HCl (Xylocaine-Mpf 1% Vial) 2 ml STK-MED ONCE .ROUTE ; Start 05/20/16 at 08:00; Stop 05/21/16 at 08:00; Status DC Fentanyl Citrate (Fentanyl 2ml Vial) 50 mcg PRN Q3HRS PRN IV PAIN Last administered on 05/23/16 11:49; Start 05/21/16 at 10:27 Morphine Sulfate 2 mg PRN Q3HRS PRN IV PAIN Last administered on 05/23/16 09:29 ; Start 05/21/16 at 10:27 Morphine Sulfate 4 mg PRN Q3HRS PRN IV PAIN Last administered on 05/23/16 12:36 ; Start 05/21/16 at 10:27 Diphenhydramine HCl (Benadryl) 50 mg PRN Q6HRS PRN IVP itching Last administered on 05/23/16 11:48; Start 05/21/16 at 10:30 Ondansetron HCl (Zofran) 4 mg PRN Q6HRS PRN IV NAUSEA/VOMITING Last administered on 05/23/16 07:47; Start 05/21/16 at 11:15 Warfarin Sodium 3 mg 3 mg 1X WARF ONCE PO Last administered on 05/21/16 15:08 ; Start 05/21/16 at 16:00; Stop 05/21/16 at 16:01; Status DC Sodium Chloride (Iv Sodium Chloride 0.9% 1000ml Bag) 1,000 ml @ 1,000 mls/hr Q1H PRN IV hypotension; Start 05/22/16 at 09:36; Stop 05/22/16 at 15:35; Status DC Diphenhydramine HCl (Benadryl) 25 mg 1X PRN PRN IV ITCHING Last administered on 05/22/16 16:52; Start 05/22/16 at 09:45; Stop 05/22/16 at 19:00; Status DC Sodium Chloride (Normal Saline Flush) 10 ml 1X PRN PRN IV AP catheter pack; Start 05/22/16 at 09:45; Stop 05/22/16 at 19:00; Status DC Sodium Chloride (Normal Saline Flush) 10 ml 1X PRN PRN IV [employer] catheter pack; Start 05/22/16 at 09:45; Stop 05/22/16 at 19:00; Status DC Info (PHARMACY MONITORING -- do not chart) 1 each PRN DAILY PRN MC SEE COMMENTS ; Start 05/22/16 at 09:45; Status UNV Info (PHARMACY MONITORING -- do not chart) 1 each PRN DAILY PRN MC SEE COMMENTS ; Start 05/22/16 at 09:45; Status UNV Warfarin Sodium (Coumadin) 2 mg 1X WARF ONCE PO Last administered on 05/22/16 17:48; Start 05/22/16 at 16:00; Stop 05/22/16 at 16:01; Status DC Warfarin Sodium (Coumadin) 2 mg 1X WARF ONCE PO ; Start 05/23/16 at 16:00; Stop 05/23/16 at 16:01 Active Scripts Active Zofran Odt (Ondansetron) 4 Mg Tab.rapdis 1 Tab SL Q8HRS PRN Reported Percocet 7.5-325 Mg Tablet (Oxycodone/Acetaminophen) 1 Each Tablet 1 Tab PO PRN Q8HRS PRN Xanax (Alprazolam) 0.25 Mg Tablet 2 Mg PO TID PRN Metoprolol Succinate ( Xl ) (Metoprolol Succinate) 200 Mg Tab.er.24h 1 Tab PO DAILY Hydralazine Hcl 50 Mg Tablet 1 Tab PO TID Amlodipine Besylate 10 Mg Tablet 1 Tab PO DAILY Vitals/I & O Vital Sign - Last 24 Hours 05/22/16 05/22/16 05/22/16 05/22/16 15:00 16:47 17:43 19:00 Temp 98.1 99.1 98.1 99.1 Pulse 115 111 Resp 20 16 16 20 B/P 183/51 202/74 Pulse Ox 90 91 90 O2 Delivery Nasal Cannula Nasal Cannula Nasal Cannula Nasal Cannula O2 Flow Rate 3.5 3.5 3.5 3.5 05/22/16 05/22/16 05/22/16 05/22/16 19:45 20:00 20:30 20:33 Pulse 115 Resp 20 20 B/P 183/51 Pulse Ox 91 91 O2 Delivery Nasal Cannula Nasal Cannula Nasal Cannula O2 Flow Rate 3.5 3.5 3.5 05/22/16 05/22/16 05/22/16 05/23/16 22:45 23:00 23:30 01:41 Temp 99.1 99.1 Pulse 106 Resp 20 21 20 B/P 190/96 Pulse Ox 91 90 90 O2 Delivery Nasal Cannula Nasal Cannula Nasal Cannula Nasal Cannula O2 Flow Rate 3.5 3.5 3.5 3.5 05/23/16 05/23/16 05/23/16 05/23/16 02:22 03:00 05:21 05:38 Temp 98.4 98.4 Pulse 105 Resp 20 20 20 20 B/P 195/42 Pulse Ox 93 90 90 O2 Delivery Nasal Cannula Nasal Cannula Nasal Cannula Nasal Cannula O2 Flow Rate 5.0 3.5 4.0 4.0 05/23/16 05/23/16 05/23/16 05/23/16 07:00 07:50 07:50 07:51 Temp 98.4 98.4 Pulse 109 109 109 109 Resp 20 B/P 193/63 193/63 193/63 193/63 Pulse Ox 89 O2 Delivery Nasal Cannula O2 Flow Rate 3.5 05/23/16 05/23/16 05/23/16 05/23/16 07:51 08:00 08:48 09:29 Pulse 109 Resp 19 18 B/P 193/63 Pulse Ox 89 89 O2 Delivery Nasal Cannula Nasal Cannula Nasal Cannula O2 Flow Rate 3.5 3.5 3.5 05/23/16 05/23/16 05/23/16 05/23/16 09:59 11:00 11:44 11:49 Temp 98.1 98.1 Pulse 111 111 Resp 17 22 20 B/P 198/102 198/102 Pulse Ox 89 89 89 O2 Delivery Nasal Cannula Nasal Cannula Nasal Cannula O2 Flow Rate 3.5 3.5 3.5 05/23/16 05/23/16 05/23/16 12:19 12:36 13:06 Resp 21 21 22 Pulse Ox 89 89 89 O2 Delivery Nasal Cannula Nasal Cannula Nasal Cannula O2 Flow Rate 3.5 3.5 3.5 Intake and Output 05/22/16 05/22/16 05/23/16 15:00 23:00 07:00 Intake Total 100 ml Output Total 0 ml Balance 0 ml 100 ml KINGSLEY EVERETT III DO May 23, 2016 14:37
[2016-05-23] MEDS ORDERED: CEFTRIAXONE SODIUM 1 GM in IV NORMAL SALINE 50ML 50 ML IV SCH (15:00)
[2016-05-23] MEDS ORDERED: WARFARIN 2 MG TABLET. PO ONE (16:00)
--- NOTE | 2016-05-23 16:00 | OP ---
DATE OF SURGERY: 05/18/2016 PREOPERATIVE DIAGNOSIS: Antibiotic spacer, status post Girdlestone arthroplasty and previous hardware removal of the infected open reduction internal fixation of femoral neck fracture. PROCEDURE: Removal of antibiotic cement and spacer and revision to a total hip arthroplasty. SURGEON: Papa Feldman M.D. ANESTHESIA: General endotracheal. ESTIMATED BLOOD LOSS: 1200 mL. COMPLICATIONS: None. OPERATIVE INDICATIONS: The patient is a 26-year-old female who had had attempted femoral neck fracture fixation at [facility], which later became infected. She had removal of hardware and Girdlestone procedure with placement of antibiotic-laden cement. She is now admitted to [facility] with other medical issues among them she is on dialysis due to renal failure as a young child and had some other medical and respiratory issues, and abdominal pain, since resolved. I had talked to her at Dr. Torrez's request regarding the possibility of ongoing treatment for her hips. She had indicated that she was very limited in her activities of daily living due to the 2-inch leg length discrepancy. I covered with her the possible ongoing treatment with a Girdlestone and a shoe-lift to help equalize her leg length. I told her that overall this nonoperative treatment would be less risk in terms of infection as placement of a total hip prosthesis would have increased risk of infection due to her previous infection as well as significant medical risk factors including the dialysis. We had also talked about the possibility of something to better equalize her leg lengths with a total hip arthroplasty and overall, if successful, a less painful option generally due to the better nondenominational of her mechanics in a well-functioning total hip arthroplasty. I did caution her rather that it may be impossible to get her leg lengths completely normal due to the contracture that she has and occasionally any stretching of the neurovascular structures could resultant from neurologic complications including pain, numbness, or difficulty with motor function due to the potential stretch on the sciatic nerve or potentially then surgically other damage neurovascular structures. We talked about the possibility of premature work loosening, medical or other anesthetic complications, instability, wearing out of the implant given her young age and of course the leg length discrepancy among others including the significant increased risk of infection. All her questions were answered, and she indicated that she would like to proceed with surgical evaluation and treatment at [facility] given her previous difficulties. OPERATIVE TECHNIQUE : The patient was identified, procedure verified, patient placed in the supine position on the operating, on the [place] table, elected to perform an anterior approach due to the previous anterior approach that was used for her Girdlestone procedure, and the feet were placed in the leg holders. All bony prominences were well padded, and the right hip was prepped and draped in the standard sterile fashion. After timeout was performed, the patient and procedure identified and verified, an incision was made over the previous curvilinear incision that was made approximately from her anterior inferior iliac spine to the insertion of her lateral screws. Dissection was carried out to the fascial plane. The planes were difficult to identify due to scarring. However, I retracted iliotibial medially. She was noted to have significant compromise of the anterior aspect only of the gluteus medius and really had minimal anterior hip capsule that was preserved. The joint was therefore entered with little difficulty except for with a contracture. Significant care was used to avoid any compromise of the vascular structures, which were protected with a Hohmann retractor. The acetabulum was exposed. Antibiotic-laden cement was removed, and a frozen section was obtained, first of bone and the calcar area and then of deep soft tissues surrounding the acetabulum at the pathologist's request. Frozen section came back negative for any signs of infection. The acetabulum was prepared by reaming under fluoroscopic guidance, and as planned given her young age and concern for maximizing her range of motion, I elected to trial a mobile-bearing hip construct, which was brought as an option with preoperative planning as opposed to conventional total hip arthroplasty which was also considered. Reaming was thus carried out up to a size 46, and a size 48 Biomet acetabular shell was impacted. A total of two screws were placed posterior superiorly and got excellent bite along with good bite of the acetabulum which was placed under fluoroscopic guidance using a 40-degree inclination and 20-degree anteversion benchmark which looked to be anatomically favorable as well. Next, a trial was placed, and attention was then turned to preparing of femur. Significant amounts of calcar bone were missing to the infection, and the bone was sclerotic at the area of the failed fixation of the femoral neck fracture, in a poor quality elsewhere. I carefully removed bone with a box osteotome and rat tail rasp to ensure the canal was located appropriately. Initially, an Avenir stem broach was placed. Examination under anesthesia suspected the remaining calcar to be quite deficient, and given her poor quality of bone stock, I elected to proceed with a Mendoza revision stem construct, and reaming was carried out first upside to a size 15, which appeared to get good contact and chatter. However, with a size-15 implant, it was noted to not maintain rotational control. I had previously, due to the lack of her calcar and weakness of her bone, placed a total of 2 stainless steel cables without tightening initially. Additional reaming was carried out to definitively locate and size the revision stem as rotational control was necessary, and a size-17 stem was selected. Again, this was somewhat challenging due to the quality of her bone as I did not want to compromise her bone distally due to its poor quality. Nevertheless, the size-17 Mendoza stem was placed in proper version and reinforced with the tightening of the cables. Next, trialing was carried out with initially a +3, +5 and then with a +7 construct. Excellent stability was noted. Religious of her leg length was noted compared to the contralateral side being near equal. Offset was very slightly increased despite medializing the acetabulum as much as possible. Excellent stability was noted with the tripolar construct. Trial components were then removed, and the metal bearing surface was impacted into the acetabular cup and the vitamin E prosthesis with a 28-mm +7 head was assembled on the back table and pressed set in as required. This was then reduced into the acetabular component after tapping in place to engage the Piotr taper. Excellent stability was noted. Equivalent nondenominational of leg length was previously noted as well. Thorough irrigation was carried out with normal saline solution. The anterior aspect of the gluteus medius was repaired with #5 Ethibond suture transosseously. The remaining was kept intact. Repair of anterior capsule was not possible due to the deficiency of tissue noted previously. The intra-articular pain mixture was injected. Fascia was closed with a combination of simple and running #1 Vicryl suture. Subcutaneous closure was accomplished in a meticulous fashion with buried 2-0 Vicryl suture and skin closure with macey. Sterile dressings were applied. The patient was returned to Intensive Care Unit in stable condition as she had gotten intraoperative transfusion of 3 units having had a starting hemoglobin of 8.2 with blood previously available, but was elected not to be transfused preoperatively per her medicine doctors as she was scheduled for postoperative dialysis. PAPA FELDMAN MD DR: FAHAD/phuc JOB#: [id number] / [id number]
[2016-05-23] MEDS: IPRATRPIUM/ALBUTEROL 0.5/2.5MG 3 ML NEBU. NEB SCH ×2 (16:09→20:00)
[2016-05-24] MEDS: DIPHENHYDRAMINE 50 MG/ML VIAL IVP PRN ×4 (00:33→20:22)
[2016-05-24] MEDS: MORPHINE SULFATE 4 MG/ML DISP.SYRIN. IV PRN ×5 (00:33→17:16)
[2016-05-24] MEDS: FENTANYL PF 100 MCG/2 ML VIAL. IV PRN ×6 (03:03→21:42)
[2016-05-24 03:14] VITALS: BP 126/35
[2016-05-24] MEDS: LORAZEPAM 2 MG/ML VIAL IV PRN ×3 (04:10→20:41)
[2016-05-24 07:00] VITALS: BP 116/24
[2016-05-24] MEDS: IPRATRPIUM/ALBUTEROL 0.5/2.5MG 3 ML NEBU. NEB SCH ×4 (07:39→20:00)
[2016-05-24] MEDS: FERROUS SULFATE 325 MG TABLET PO SCH ×2 (08:00→17:16)
[2016-05-24] MEDS: MULTIVITAMIN with MINERAL TABLET. PO SCH (09:00)
[2016-05-24] MEDS: SENNOSIDES/DOCUSATE 8.6/50MG TABLET. PO SCH (09:00)
[2016-05-24] MEDS: LISINOPRIL 20 MG TABLET PO SCH (09:00)
[2016-05-24] MEDS: METOPROLOL SUCC 24HR ER 100 MG TAB.ER.24H. PO SCH (09:00)
[2016-05-24] MEDS: POLYETHYLENE GLYCOL 3350 17 GM PACKET. PO SCH ×2 (09:00→20:27)
[2016-05-24] MEDS: AMLODIPINE BESYLATE 10 MG TABLET PO SCH (09:00)
[2016-05-24] MEDS: HYDRALAZINE 50 MG TABLET PO SCH ×3 (09:00→20:26)
[2016-05-24 10:23] LABS: BASO # 0.1 x10^3/uL (0.0-0.2); BASO % 1 % (0-3); EOS % 2 % (0-3); LYMPH % 9 % (24-48); MEAN CORPUSCULAR HEMOGLOBIN 31 pg (25-35); MEAN CORPUSCULAR HGB CONC 34 g/dL (31-37); MEAN CORPUSCULAR VOLUME 93 fL (79-100); MONO % 7 % (0-9); NEUT % 82 % (31-73); PLATELET COUNT 227 x10^3/uL (140-400); RED BLOOD COUNT 2.22 x10^6/uL (3.50-5.40); RED CELL DISTRIBUTION WIDTH 17.1 % (11.5-14.5); WHITE BLOOD COUNT 11.1 x10^3/uL (4.0-11.0)
[2016-05-24 10:25] LABS: HEMATOCRIT 20.7 % (36.0-47.0)
[2016-05-24 10:29] LABS: CALCIUM 8.5 mg/dL (8.5-10.1); GFR 7.1
[2016-05-24 10:32] LABS: POTASSIUM 6.3 mmol/L (3.5-5.1)
[2016-05-24 11:00] VITALS: BP 108/73
--- NOTE | 2016-05-24 12:58 | PDOC ---
PROGRESS NOTES Chief Complaint Chief Complaint 0. S/P code blue after hip replacement with rib fx 1. Abdominal pain; chronic, unclear etiology 2. Narcotic dependence. 3. Hx osteomyelitis, and replaced hip hardware. 4. elevated Alk Phos; isolated. 5. ESRD: HD tts 6. Anemia; severe, 2/2 ESRD. 7. acute resp failure with fluid overloaded with ESRD and possible PNA 8. left ARM AVF thrombosis 9. non compliance, wants to go home if not getting pain meds 10.HTN with hypotention now PLAN: - increasing WBC, worsening coarseness, cough and SOB; concerned that pt could be developing pneumonia - empiric treatment with IV Rocephin 1 mg q 24h - PRN duonebs breathing treatment - cont supplemental O2 - SW to LTAC eval? - awaiting thrombectomy of the L arm tmr - Pulmonology following, appreciate input; CXR showing worsening moderate bibasilar atelectasis/infiltrate - cont wound care - PTOT - cont narcotics for hip and rib pain - cont IV Zofran for nausea - cont Benadryl for itchiness - appreciate all subspecialists involved in the care of this patient add zosyn , repeat cxr as per renal, may need HD daily for now , now has left femoral HD cath. hold HTN meds if low BP History of Present Illness History of Present Illness Patient lying down in bed when evaluated this AM. Pt looks mild lethargic, and fells asleep when talking, but saying she had insomnia. she refused PTOT, REFUSE po pain meds, requires iv pain meds. K 6.2. Hb 7 today, ESRD ON HD tts. saying cough a little bit daily Vitals Vitals Vital Signs Date Time Temp Pulse Resp B/P Pulse Ox O2 Delivery O2 Flow Rate FiO2 05/24/16 12:15 93 Nasal Cannula 5.0 05/24/16 11:00 97.9 102 18 108/73 97.9 Physical Exam General: Alert, Oriented X3, Cooperative Heart: Regular rate, Normal S1, Normal S2, No murmurs, Gallops Lungs: Other (diffuse coarse breath sounds. painful over R ribs, following code /CPR) Abdomen: Normal bowel sounds, Soft, No tenderness, No hepatosplenomegaly, No masses Extremities: No edema Skin: No rashes Labs LABS Laboratory Tests Test 05/24/16 10:05 White Blood Count 11.1x10^3/uL (4.0-11.0) Red Blood Count 2.22x10^6/uL (3.50-5.40) Hemoglobin 7.0g/dL (12.0-15.5) Hematocrit 20.7% (36.0-47.0) Mean Corpuscular Volume 93fL (79-100) Mean Corpuscular Hemoglobin 31pg (25-35) Mean Corpuscular Hemoglobin Concent 34g/dL (31-37) Red Cell Distribution Width 17.1% (11.5-14.5) Platelet Count 227x10^3/uL (140-400) Neutrophils (%) (Auto) 82% (31-73) Lymphocytes (%) (Auto) 9% (24-48) Monocytes (%) (Auto) 7% (0-9) Eosinophils (%) (Auto) 2% (0-3) Basophils (%) (Auto) 1% (0-3) Neutrophils # (Auto) 9.1x10^3uL (1.8-7.7) Lymphocytes # (Auto) 1.0x10^3/uL (1.0-4.8) Monocytes # (Auto) 0.7x10^3/uL (0.0-1.1) Eosinophils # (Auto) 0.3x10^3/uL (0.0-0.7) Basophils # (Auto) 0.1x10^3/uL (0.0-0.2) Sodium Level 137mmol/L (136-145) Potassium Level 6.3mmol/L (3.5-5.1) Chloride Level 99mmol/L (98-107) Carbon Dioxide Level 28mmol/L (21-32) Anion Gap 10 (6-14) Blood Urea Nitrogen 52mg/dL (7-20) Creatinine 7.0mg/dL (0.6-1.0) Estimated GFR (Cockcroft-Gault) 7.1 Glucose Level 109mg/dL (70-99) Calcium Level 8.5mg/dL (8.5-10.1) Review of Systems Review of Systems no fever, chills, sob or chest pain Assessment and Plan Assessmemt and Plan Problems Medical Problems: (1) Abdominal pain Status: Acute (2) Hip fracture, right Status: Acute (3) Infection and inflammatory reaction due to internal right hip prosthesis, subsequent encounter Status: Acute (4) Intractable abdominal pain Status: Acute (5) Nausea & vomiting Status: Acute Problems: Comment Review of Relevant I have reviewed the following items lynnette (where applicable) has been applied. Labs Laboratory Tests Test 05/23/16 05:40 05/24/16 10:05 White Blood Count 12.8x10^3/uL (4.0-11.0) 11.1x10^3/uL (4.0-11.0) Red Blood Count 2.49x10^6/uL (3.50-5.40) 2.22x10^6/uL (3.50-5.40) Hemoglobin 7.5g/dL (12.0-15.5) 7.0g/dL (12.0-15.5) Hematocrit 23.7% (36.0-47.0) 20.7% (36.0-47.0) Mean Corpuscular Volume 95fL (79-100) 93fL (79-100) Mean Corpuscular Hemoglobin 30pg (25-35) 31pg (25-35) Mean Corpuscular Hemoglobin Concent 32g/dL (31-37) 34g/dL (31-37) Red Cell Distribution Width 16.2% (11.5-14.5) 17.1% (11.5-14.5) Platelet Count 206x10^3/uL (140-400) 227x10^3/uL (140-400) Neutrophils (%) (Auto) 85% (31-73) 82% (31-73) Lymphocytes (%) (Auto) 6% (24-48) 9% (24-48) Monocytes (%) (Auto) 6% (0-9) 7% (0-9) Eosinophils (%) (Auto) 3% (0-3) 2% (0-3) Basophils (%) (Auto) 1% (0-3) 1% (0-3) Neutrophils # (Auto) 10.8x10^3uL (1.8-7.7) 9.1x10^3uL (1.8-7.7) Lymphocytes # (Auto) 0.7x10^3/uL (1.0-4.8) 1.0x10^3/uL (1.0-4.8) Monocytes # (Auto) 0.8x10^3/uL (0.0-1.1) 0.7x10^3/uL (0.0-1.1) Eosinophils # (Auto) 0.4x10^3/uL (0.0-0.7) 0.3x10^3/uL (0.0-0.7) Basophils # (Auto) 0.1x10^3/uL (0.0-0.2) 0.1x10^3/uL (0.0-0.2) Prothrombin Time 21.6SEC (11.7-14.0) Prothromb Time International Ratio 2.0 (0.8-1.1) Sodium Level 136mmol/L (136-145) 137mmol/L (136-145) Potassium Level 4.8mmol/L (3.5-5.1) 6.3mmol/L (3.5-5.1) Chloride Level 98mmol/L (98-107) 99mmol/L (98-107) Carbon Dioxide Level 27mmol/L (21-32) 28mmol/L (21-32) Anion Gap 11 (6-14) 10 (6-14) Blood Urea Nitrogen 33mg/dL (7-20) 52mg/dL (7-20) Creatinine 4.7mg/dL (0.6-1.0) 7.0mg/dL (0.6-1.0) Estimated GFR (Cockcroft-Gault) 11.2 7.1 Glucose Level 103mg/dL (70-99) 109mg/dL (70-99) Calcium Level 8.8mg/dL (8.5-10.1) 8.5mg/dL (8.5-10.1) Laboratory Tests Test 05/24/16 10:05 White Blood Count 11.1x10^3/uL (4.0-11.0) Red Blood Count 2.22x10^6/uL (3.50-5.40) Hemoglobin 7.0g/dL (12.0-15.5) Hematocrit 20.7% (36.0-47.0) Mean Corpuscular Volume 93fL (79-100) Mean Corpuscular Hemoglobin 31pg (25-35) Mean Corpuscular Hemoglobin Concent 34g/dL (31-37) Red Cell Distribution Width 17.1% (11.5-14.5) Platelet Count 227x10^3/uL (140-400) Neutrophils (%) (Auto) 82% (31-73) Lymphocytes (%) (Auto) 9% (24-48) Monocytes (%) (Auto) 7% (0-9) Eosinophils (%) (Auto) 2% (0-3) Basophils (%) (Auto) 1% (0-3) Neutrophils # (Auto) 9.1x10^3uL (1.8-7.7) Lymphocytes # (Auto) 1.0x10^3/uL (1.0-4.8) Monocytes # (Auto) 0.7x10^3/uL (0.0-1.1) Eosinophils # (Auto) 0.3x10^3/uL (0.0-0.7) Basophils # (Auto) 0.1x10^3/uL (0.0-0.2) Sodium Level 137mmol/L (136-145) Potassium Level 6.3mmol/L (3.5-5.1) Chloride Level 99mmol/L (98-107) Carbon Dioxide Level 28mmol/L (21-32) Anion Gap 10 (6-14) Blood Urea Nitrogen 52mg/dL (7-20) Creatinine 7.0mg/dL (0.6-1.0) Estimated GFR (Cockcroft-Gault) 7.1 Glucose Level 109mg/dL (70-99) Calcium Level 8.5mg/dL (8.5-10.1) Medications Current Medications Ondansetron HCl (Zofran) 4 mg 1X ONCE IV Last administered on 05/15/16 19:17 ; Start 05/15/16 at 19:00; Stop 05/15/16 at 19:01; Status DC Morphine Sulfate 4 mg 1X ONCE IV Last administered on 05/15/16 19:19; Start 05/15/16 at 19:00; Stop 05/15/16 at 19:01; Status DC Hydralazine HCl (Apresoline) 10 mg 1X ONCE IVP Last administered on 05/15/16 19:21; Start 05/15/16 at 19:00; Stop 05/15/16 at 19:01; Status DC Lorazepam (Ativan) 1 mg 1X ONCE PO Last administered on 05/15/16 20:04; Start 05/15/16 at 19:45; Stop 05/15/16 at 19:46; Status DC Alprazolam (Xanax) 2 mg PRN TID PRN PO ANXIETY / AGITATION; Start 05/15/16 at 20:45; Stop 05/15/16 at 20:47; Status DC Amlodipine Besylate (Norvasc) 10 mg DAILY PO Last administered on 05/23/16 07: 50; Start 05/16/16 at 09:00 Hydralazine HCl (Apresoline) 50 mg TID PO Last administered on 05/23/16 15:53; Start 05/16/16 at 09:00 Ondansetron HCl (Zofran Odt) 4 mg PRN Q8HRS PRN PO NAUSEA; Start 05/15/16 at 20 :45; Stop 05/21/16 at 10:18; Status DC Oxycodone/ Acetaminophen (Percocet 7.5/ 325) 1 tab PRN Q8HRS PRN PO PAIN; Start 05/15/16 at 20:45; Status Cancel Metoprolol Succinate (Toprol Xl) 200 mg DAILY PO Last administered on 05/23/16 07:51; Start 05/16/16 at 09:00 Alprazolam (Xanax) 2 mg PRN TID PRN PO ANXIETY / AGITATION; Start 05/15/16 at 20:47 Morphine Sulfate 4 mg 1X ONCE IV Last administered on 05/15/16 21:13; Start 05/15/16 at 21:00; Stop 05/15/16 at 21:01; Status DC Ondansetron HCl (Zofran) 4 mg 1X ONCE IV Last administered on 05/15/16 21:08 ; Start 05/15/16 at 21:00; Stop 05/15/16 at 21:01; Status DC Labetalol HCl (Normodyne) 20 mg PRN Q6HRS PRN IVP HYPERTENSION, SEE COMMENTS Last administered on 05/23/16 11:44; Start 05/15/16 at 23:30 Lorazepam (Ativan) 1 mg PRN Q6HRS PRN IV ANXIETY / AGITATION Last administered on 05/16/16 20:22; Start 05/15/16 at 23:30; Stop 05/16/16 at 22:44; Status DC Morphine Sulfate 2 mg PRN Q2HR PRN IV PAIN Last administered on 05/16/16 10:52 ; Start 05/15/16 at 23:30; Stop 05/16/16 at 11:42; Status DC Morphine Sulfate 4 mg PRN Q2HR PRN IV PAIN; Start 05/15/16 at 23:30; Stop 05/16 at 11:42; Status DC Diphenhydramine HCl (Benadryl) 50 mg PRN Q6HRS PRN IVP ITCHING Last administered on 05/16/16 20:23; Start 05/15/16 at 23:30; Stop 05/16/16 at 22:44 ; Status DC Morphine Sulfate 1 mg PRN Q2HR PRN IV PAIN Last administered on 05/17/16 18:38 ; Start 05/16/16 at 11:45; Stop 05/21/16 at 10:18; Status DC Diphenhydramine HCl (Benadryl) 25 mg PRN Q8HRS PRN IVP ITCHING Last administered on 05/18/16 04:54; Start 05/16/16 at 23:30; Stop 05/18/16 at 15:51 ; Status DC Lorazepam (Ativan) 0.5 mg PRN Q8HRS PRN IV ANXIETY / AGITATION Last administered on 05/24/16 12:33; Start 05/16/16 at 23:30 Metoclopramide HCl (Reglan) 5 mg PRN Q8HRS PRN IV NAUSEA/VOMITING Last administered on 05/22/16 19:45; Start 05/16/16 at 22:45 Polyethylene Glycol (miraLAX PACKET) 17 gm BID PO ; Start 05/17/16 at 09:00 Lidocaine HCl 2 ml 2 ml STFirework-MED ONCE .ROUTE ; Start 05/17/16 at 11:20; Stop at 11:21; Status DC Sodium Chloride (Iv Sodium Chloride 0.9% 1000ml Bag) 1,000 ml @ 1,000 mls/hr Q1H PRN IV hypotension; Start 05/17/16 at 12:42; Stop 05/17/16 at 18:41; Status DC Diphenhydramine HCl (Benadryl) 25 mg 1X PRN PRN IV ITCHING; Start 05/17/16 at 12:45; Stop 05/18/16 at 12:44; Status DC Diphenhydramine HCl (Benadryl) 25 mg 1X PRN PRN IV ITCHING; Start 05/17/16 at 12:45; Stop 05/18/16 at 12:44; Status DC Info (PHARMACY MONITORING -- do not chart) 1 each PRN DAILY PRN MC SEE COMMENTS ; Start 05/17/16 at 12:45; Status UNV Info 1 each 1 each PRN DAILY PRN MC SEE COMMENTS; Start 05/17/16 at 12:45; Status UNV Morphine Sulfate/ Ketorolac Tromethamine/ Ropivacaine/ Epinephrine HCl/ Sodium Chloride (Morphine 5mg Syringe/Toradol/ Naropin 0.5%/ Adrenalin/Iv Sodium Chloride 0.9% 100ml) 100.5 ml @ 100.5 mls/ hr 1X PERIOP ONCE INT ART Last administered on 05/18/16 08:20; Start 05/18/16 at 06:00; Stop 05/18/16 at 06:59 ; Status DC Ondansetron HCl (Zofran) 4 mg PRN Q6HRS PRN IV Nausea; Start 05/18/16 at 07:00 ; Stop 05/19/16 at 06:59; Status DC Fentanyl Citrate (Fentanyl 2ml Vial) 25 mcg PRN Q5MIN PRN IV MILD PAIN Last administered on 05/18/16 16:42; Start 05/18/16 at 07:00; Stop 05/19/16 at 06:59 ; Status DC Fentanyl Citrate (Fentanyl 2ml Vial) 50 mcg PRN Q5MIN PRN IV MODERATE PAIN Last administered on 05/19/16 02:10; Start 05/18/16 at 07:00; Stop 05/19/16 at 06 :59; Status DC Morphine Sulfate 1 mg PRN Q10MIN PRN IV SEVERE PAIN; Start 05/18/16 at 07:00; Stop 05/19/16 at 06:59; Status DC Lidocaine HCl 2 ml 1X PRN PRN ID IV START; Start 05/18/16 at 07:00; Stop at 06:59; Status DC Hydromorphone HCl (Dilaudid) 0.5 mg PRN Q10MIN PRN IV SEVERE PAIN, Second choice Last administered on 05/19/16 00:53; Start 05/18/16 at 07:00; Stop at 06:59; Status DC Prochlorperazine Edisylate 5 mg 5 mg PACU PRN PRN IV NAUSEA; Start 05/18/16 at 07:00; Stop 05/19/16 at 06:59; Status DC Sodium Chloride (Iv Sodium Chloride 0.9% 1000ml Bag) 1,000 ml @ 30 mls/hr Q24H IV ; Start 05/18/16 at 07:00; Stop 05/19/16 at 07:48; Status DC Warfarin Sodium (Coumadin) 5 mg 1X ONCE PO Last administered on 05/17/16 16: 31; Start 05/17/16 at 17:00; Stop 05/17/16 at 17:01; Status DC Acetaminophen/ Hydrocodone Bitart (Lortab 7.5/325) 2 tab 1X ONCE PO ; Start at 05:30; Stop 05/18/16 at 05:31; Status Cancel Acetaminophen/ Hydrocodone Bitart 2 tab 2 tab 1X PREOP PRN PO PRIOR TO PROCEDURE; Start 05/18/16 at 06:00; Stop 05/18/16 at 18:00; Status DC Cefazolin Sodium/ Dextrose 50 ml @ 100 mls/hr 1X PREOP PRN IV PRIOR TO PROCEDURE; Start 05/18/16 at 06:00; Stop 05/18/16 at 18:00; Status DC Morphine Sulfate/ Ketorolac Tromethamine/ Ropivacaine/ Epinephrine HCl/ Sodium Chloride (Morphine 5mg Syringe/Toradol/ Naropin 0.5%/ Adrenalin/Iv Sodium Chloride 0.9% 50ml) 100.5 ml @ 100.5 mls/ hr 1X PERIOP ONCE INT ART ; Start at 06:00; Stop 05/18/16 at 06:59; Status Cancel Dexamethasone Sodium Phosphate (Decadron) 20 mg STK-MED ONCE .ROUTE ; Start at 06:57; Stop 05/18/16 at 06:58; Status DC Ondansetron HCl 4 mg 4 mg STK-MED ONCE .ROUTE ; Start 05/18/16 at 06:57; Stop at 06:58; Status DC Propofol (Diprivan) 20 ml @ As Directed STK-MED ONCE IV ; Start 05/18/16 at 06: 57; Stop 05/18/16 at 06:58; Status DC Lidocaine HCl 100 mg STK-MED ONCE .ROUTE ; Start 05/18/16 at 06:57; Stop at 06:58; Status DC Fentanyl Citrate (Fentanyl 5ml Vial) 250 mcg STK-MED ONCE .ROUTE ; Start at 06:57; Stop 05/18/16 at 06:58; Status DC Midazolam HCl (Versed) 2 mg STK-MED ONCE .ROUTE ; Start 05/18/16 at 06:58; Stop 05/18/16 at 06:59; Status DC Rocuronium [place] 50 mg 50 mg STK-MED ONCE .ROUTE ; Start 05/18/16 at 06:58; Stop 05/18/16 at 06:59; Status DC Acetaminophen 100 ml @ As Directed STK-MED ONCE IV ; Start 05/18/16 at 07:13; Stop 05/18/16 at 07:14; Status DC Sodium Chloride 500 ml @ 30 mls/hr [id number] IV Last administered on 05/18/16t 07:45; Start 05/18/16 at 07:45; Stop 05/19/16 at 07:48; Status DC Cefazolin Sodium (Ancef 1gm Ivpb For Omni) 50 ml @ As Directed STK-MED ONCE IV ; Start 05/18/16 at 07:45; Stop 05/18/16 at 07:46; Status DC Fentanyl Citrate (Fentanyl 5ml Vial) 250 mcg STK-MED ONCE .ROUTE ; Start at 08:27; Stop 05/18/16 at 08:28; Status DC Rocuronium [place] (Zemuron) 50 mg STK-MED ONCE .ROUTE ; Start 05/18/16 at 08:27 ; Stop 05/18/16 at 08:28; Status DC Morphine Sulfate 5 mg 5 mg STK-MED ONCE .ROUTE ; Start 05/18/16 at 08:59; Stop 05/18/16 at 09:00; Status DC Cefazolin Sodium (Ancef 1gm Ivpb For Omni) 50 ml @ 100 mls/hr 1X PREOP PRN IV PER PROTOCOL Last administered on 05/18/16 08:06; Start 05/18/16 at 09:30; Stop 05/19/16 at 09:29; Status DC Lisinopril (Prinivil) 20 mg DAILY PO Last administered on 05/23/16 07:50; Start 05/18/16 at 11:30 Albuterol Sulfate (Ventolin Neb Soln) 2.5 mg STK-MED ONCE .ROUTE ; Start at 11:24; Stop 05/18/16 at 11:25; Status DC Morphine Sulfate 10 mg STK-MED ONCE .ROUTE ; Start 05/18/16 at 11:55; Stop 05/18 at 11:56; Status DC Cefazolin Sodium/ Dextrose 2 gm 2 gm STK-MED ONCE IV ; Start 05/18/16 at 07:30; Stop 05/18/16 at 12:41; Status DC Cefazolin Sodium (Ancef 1gm Ivpb For Omni) 50 ml @ As Directed STK-MED ONCE IV ; Start 05/18/16 at 13:02; Stop 05/18/16 at 13:03; Status DC Fentanyl Citrate (Fentanyl 5ml Vial) 250 mcg STK-MED ONCE .ROUTE ; Start at 13:27; Stop 05/18/16 at 13:28; Status DC Phenylephrine HCl 1 mg STK-MED ONCE IV ; Start 05/18/16 at 13:58; Stop 05/18/16 at 13:59; Status DC Insulin Human Regular (Novolin R Vial) 10 unit 1X ONCE IV ; Start 05/18/16 at 14:15; Stop 05/18/16 at 14:16; Status DC Acetaminophen/ Hydrocodone Bitart (Lortab 7.5/325) 1 tab PRN Q3HRS PRN PO PAIN ; Start 05/18/16 at 15:45; Stop 05/21/16 at 10:18; Status DC Acetaminophen/ Hydrocodone Bitart (Lortab 10/325) 1 tab PRN Q3HRS PRN PO PAIN; Start 05/18/16 at 15:45 Tramadol HCl (Ultram) 50 mg PRN QID PRN PO PAIN; Start 05/18/16 at 15:45; Stop 05/21/16 at 10:18; Status DC Oxycodone/ Acetaminophen (Percocet 5/325) 1 tab PRN Q3HRS PRN PO PAIN; Start at 15:45 Oxycodone/ Acetaminophen (Percocet 7.5/ 325) 1 tab PRN Q3HRS PRN PO PAIN; Start 05/18/16 at 15:45 Tramadol HCl (Ultram) 100 mg PRN Q3HRS PRN PO PAIN; Start 05/18/16 at 15:45 Morphine Sulfate 2 mg PRN Q1HR PRN IV PAIN; Start 05/18/16 at 15:45; Stop at 10:40; Status DC Fentanyl Citrate (Fentanyl 2ml Vial) 25 mcg PRN Q1HR PRN IV PAIN Last administered on 05/20/16 21:37; Start 05/18/16 at 15:45; Stop 05/21/16 at 10:18; Status DC Diphenhydramine HCl (Benadryl) 25 mg PRN Q6HRS PRN IV ITCHING Last administered on 05/21/16 10:08; Start 05/18/16 at 15:45; Stop 05/21/16 at 10:43; Status DC Warfarin Sodium (Coumadin Per Pharmacy) 1 each PRN DAILY PRN MC SEE COMMENTS Last administered on 05/24/16 11:05; Start 05/18/16 at 15:45 Multivitamins/ Calcium (Thera M Plus) 1 tab DAILY PO Last administered on 07:52; Start 05/19/16 at 09:00 Senna/Docusate Sodium (Senna Plus) 1 tab DAILY PO Last administered on 07:52; Start 05/19/16 at 09:00 Ferrous Sulfate 325 mg 325 mg BIDWMEALS PO Last administered on 05/23/16 18:22 ; Start 05/18/16 at 17:00 Dextrose/Sodium Chloride (Iv D5% - 1/2 NS) 1,000 ml @ 100 mls/hr Q10H IV ; Start 05/18/16 at 15:31; Stop 05/19/16 at 07:48; Status DC Magnesium Hydroxide (Milk Of Magnesia) 2,400 mg 1X PRN PRN PO CONSTIPATION; Start 05/19/16 at 06:00; Stop 05/20/16 at 05:59; Status DC Bisacodyl (Dulcolax Supp) 10 mg 1X PRN PRN ID CONSTIPATION; Start 05/19/16 at 16 :00; Stop 05/20/16 at 15:59; Status DC Acetaminophen (Tylenol) 650 mg PRN Q4HRS PRN PO MILD PAIN / TEMP; Start at 15:45 Zolpidem Tartrate (Ambien) 5 mg PRN QHS PRN PO INSOMNIA, MAY REPEAT IN 1HR Last administered on 05/19/16 21:06; Start 05/18/16 at 15:45 Calcium Carbonate/ Glycine (Tums) 500 mg PRN QID PRN PO INDIGESTION; Start at 15:45 Morphine Sulfate 4 mg PRN Q1HR PRN IV PAIN Last administered on 05/21/16 08:11 ; Start 05/18/16 at 15:45; Stop 05/21/16 at 10:40; Status DC Morphine Sulfate 6 mg PRN Q1HR PRN IV PAIN Last administered on 05/20/16 20:04 ; Start 05/18/16 at 15:45; Stop 05/21/16 at 10:18; Status DC Morphine Sulfate 8 mg PRN Q1HR PRN IV PAIN; Start 05/18/16 at 15:45; Stop at 10:18; Status DC Sodium Chloride (Normal Saline Flush) 10 ml QSHIFT PRN IV AFTER MEDS AND BLOOD DRAWS; Start 05/18/16 at 15:45; Stop 05/21/16 at 07:32; Status DC Fentanyl Citrate (Fentanyl 2ml Vial) 50 mcg PRN Q1HR PRN IV PAIN Last administered on 05/21/16 10:09; Start 05/18/16 at 15:45; Stop 05/21/16 at 10:40; Status DC Prochlorperazine Edisylate (Compazine) 10 mg PRN Q4HRS PRN IV NAUSEA/VOMITING; Start 05/18/16 at 15:45 Dextrose 12.5 gm 12.5 gm PRN Q15MIN PRN IV SEE COMMENTS; Start 05/18/16 at 15: 45 Cefazolin Sodium/ Sodium Chloride (Ancef/Iv Sodium Chloride 0.9% 50ml) 50 ml @ 100 mls/hr Q6H IV Last administered on 05/19/16 05:00; Start 05/18/16 at 16:00 ; Stop 05/19/16 at 04:29; Status DC Warfarin Sodium (Coumadin) 5 mg 1X WARF ONCE PO ; Start 05/18/16 at 16:00; Stop 05/18/16 at 16:01; Status DC Lidocaine/Sodium Bicarbonate 20 ml 20 ml STK-MED ONCE IJ ; Start 05/18/16 at 16: 51; Stop 05/18/16 at 16:52; Status DC Heparin Sodium/ Sodium Chloride 500 ml @ As Directed STK-MED ONCE .ROUTE ; Start 05/18/16 at 16:51; Stop 05/18/16 at 16:52; Status DC Heparin Sodium (Porcine) 64024 unit 10,000 unit STK-MED ONCE .ROUTE ; Start at 16:52; Stop 05/18/16 at 16:53; Status DC Sodium Chloride (Iv Sodium Chloride 0.9% 1000ml Bag) 1,000 ml @ 1,000 mls/hr Q1H PRN IV hypotension; Start 05/18/16 at 17:23; Stop 05/18/16 at 23:22; Status DC Diphenhydramine HCl (Benadryl) 75 mg 1X PRN PRN IV ITCHING; Start 05/18/16 at 17:30; Stop 05/19/16 at 17:29; Status DC Info (PHARMACY MONITORING -- do not chart) 1 each PRN DAILY PRN MC SEE COMMENTS Last administered on 05/24/16 11:02; Start 05/18/16 at 17:30 Info (PHARMACY MONITORING -- do not chart) 1 each PRN DAILY PRN MC SEE COMMENTS ; Start 05/18/16 at 17:30; Status UNV Lidocaine/Sodium Bicarbonate (Buffered Lidocaine 1%) 3 ml 1X ONCE IJ Last administered on 05/18/16 17:34; Start 05/18/16 at 17:30; Stop 05/18/16 at 17:34 ; Status DC Heparin Sodium/ Sodium Chloride 60 unit 1X ONCE IV ; Start 05/18/16 at 17:30; Stop 05/18/16 at 17:34; Status DC Insulin Aspart (Novolog Vial) 10 unit 1X ONCE SQ ; Start 05/18/16 at 18:30; Stop 05/18/16 at 18:31; Status Cancel Insulin Human Regular 10 unit 10 unit 1X ONCE IV ; Start 05/18/16 at 19:00; Stop 05/18/16 at 19:01; Status DC Propofol (Diprivan) 100 ml @ 0 mls/hr CONT PRN IV . Last administered on 02:10; Start 05/18/16 at 19:00; Stop 05/21/16 at 07:32; Status DC Darbepoetin Jude (Aranesp) 60 mcg WEEKLYHS SQ ; Start 05/19/16 at 21:00 Diphenhydramine HCl (Benadryl) 50 mg 1X ONCE IM Last administered on 05/19/16 13:27; Start 05/19/16 at 13:15; Stop 05/19/16 at 13:16; Status DC Warfarin Sodium (Coumadin - No Dose Today) 1 each 1X WARF ONCE MC ; Start at 16:00; Stop 05/19/16 at 16:01; Status DC Hydralazine HCl (Apresoline) 10 mg PRN Q4HRS PRN IVP ELEVATED BP, SEE COMMENTS Last administered on 05/19/16 23:57; Start 05/19/16 at 16:15 Amlodipine Besylate (Norvasc) 10 mg 1X ONCE PO Last administered on 05/19/16 17:34; Start 05/19/16 at 17:30; Stop 05/19/16 at 17:31; Status DC Lisinopril (Prinivil) 20 mg 1X ONCE PO Last administered on 05/19/16 17:34; Start 05/19/16 at 17:30; Stop 05/19/16 at 17:31; Status DC Metoprolol Succinate (Toprol Xl) 200 mg 1X ONCE PO Last administered on 17:34; Start 05/19/16 at 17:30; Stop 05/19/16 at 17:31; Status DC Lidocaine HCl 2 ml 2 ml STK-MED ONCE .ROUTE ; Start 05/20/16 at 08:19; Stop at 08:20; Status DC Sodium Chloride (Iv Sodium Chloride 0.9% 1000ml Bag) 1,000 ml @ 1,000 mls/hr Q1H PRN IV hypotension; Start 05/20/16 at 09:24; Stop 05/20/16 at 15:23; Status DC Diphenhydramine HCl (Benadryl) 25 mg 1X PRN PRN IV ITCHING Last administered on 05/20/16 09:36; Start 05/20/16 at 09:30; Stop 05/21/16 at 07:32; Status DC Diphenhydramine HCl (Benadryl) 25 mg 1X PRN PRN IV ITCHING Last administered on 05/20/16 09:59; Start 05/20/16 at 09:30; Stop 05/21/16 at 07:32; Status DC Sodium Chloride (Normal Saline Flush) 10 ml 1X PRN PRN IV AP catheter pack; Start 05/20/16 at 09:30; Stop 05/21/16 at 09:29; Status DC Sodium Chloride (Normal Saline Flush) 10 ml 1X PRN PRN IV [employer] catheter pack; Start 05/20/16 at 09:30; Stop 05/21/16 at 09:29; Status DC Info (PHARMACY MONITORING -- do not chart) 1 each PRN DAILY PRN MC SEE COMMENTS ; Start 05/20/16 at 09:30; Stop 05/20/16 at 09:31; Status DC Info (PHARMACY MONITORING -- do not chart) 1 each PRN DAILY PRN MC SEE COMMENTS ; Start 05/20/16 at 09:30; Status Cancel Warfarin Sodium (Coumadin) 3 mg 1X WARF ONCE PO Last administered on 05/20/16 16:26; Start 05/20/16 at 16:00; Stop 05/20/16 at 16:01; Status DC Dextrose 25 gm STK-MED ONCE IV ; Start 05/19/16 at 12:00; Stop 05/20/16 at 16:10; Status DC Epinephrine HCl 1 mg STK-MED ONCE .ROUTE ; Start 05/19/16 at 12:00; Stop 05/20/16 at 16:10; Status DC Sodium Bicarbonate 50 meq STK-MED ONCE .ROUTE ; Start 05/19/16 at 12:00; Stop 05/20/16 at 16:10; Status DC Diphenhydramine HCl (Benadryl) 50 mg 1X ONCE IVP Last administered on 04:02; Start 05/21/16 at 04:00; Stop 05/21/16 at 10:18; Status DC Lidocaine HCl (Xylocaine-Mpf 1% Vial) 2 ml STK-MED ONCE .ROUTE ; Start 05/20/16 at 08:00; Stop 05/21/16 at 08:00; Status DC Fentanyl Citrate (Fentanyl 2ml Vial) 50 mcg PRN Q3HRS PRN IV PAIN Last administered on 05/24/16 11:36; Start 05/21/16 at 10:27 Morphine Sulfate 2 mg PRN Q3HRS PRN IV PAIN Last administered on 05/23/16 15:45 ; Start 05/21/16 at 10:27 Morphine Sulfate 4 mg PRN Q3HRS PRN IV PAIN Last administered on 05/24/16 10:08 ; Start 05/21/16 at 10:27 Diphenhydramine HCl (Benadryl) 50 mg PRN Q6HRS PRN IVP itching Last administered on 05/24/16 12:33; Start 05/21/16 at 10:30 Ondansetron HCl (Zofran) 4 mg PRN Q6HRS PRN IV NAUSEA/VOMITING Last administered on 05/23/16 07:47; Start 05/21/16 at 11:15 Warfarin Sodium 3 mg 3 mg 1X WARF ONCE PO Last administered on 05/21/16 15:08 ; Start 05/21/16 at 16:00; Stop 05/21/16 at 16:01; Status DC Sodium Chloride (Iv Sodium Chloride 0.9% 1000ml Bag) 1,000 ml @ 1,000 mls/hr Q1H PRN IV hypotension; Start 05/22/16 at 09:36; Stop 05/22/16 at 15:35; Status DC Diphenhydramine HCl (Benadryl) 25 mg 1X PRN PRN IV ITCHING Last administered on 05/22/16 16:52; Start 05/22/16 at 09:45; Stop 05/22/16 at 19:00; Status DC Sodium Chloride (Normal Saline Flush) 10 ml 1X PRN PRN IV AP catheter pack; Start 05/22/16 at 09:45; Stop 05/22/16 at 19:00; Status DC Sodium Chloride (Normal Saline Flush) 10 ml 1X PRN PRN IV [employer] catheter pack; Start 05/22/16 at 09:45; Stop 05/22/16 at 19:00; Status DC Info (PHARMACY MONITORING -- do not chart) 1 each PRN DAILY PRN MC SEE COMMENTS ; Start 05/22/16 at 09:45; Status UNV Info (PHARMACY MONITORING -- do not chart) 1 each PRN DAILY PRN [facility] SEE COMMENTS ; Start 05/22/16 at 09:45; Status UNV Warfarin Sodium (Coumadin) 2 mg 1X WARF ONCE PO Last administered on 05/22/16 17:48; Start 05/22/16 at 16:00; Stop 05/22/16 at 16:01; Status DC Warfarin Sodium 2 mg 2 mg 1X WARF ONCE PO Last administered on 05/23/16 15:56 ; Start 05/23/16 at 16:00; Stop 05/23/16 at 16:01; Status DC Ceftriaxone Sodium/Sodium Chloride (Rocephin/Iv Sodium Chloride 0.9% 50ml) 50 ml @ 100 mls/hr Q24H IV Last administered on 05/23/16 15:13; Start 05/23/16 at 15:00 Albuterol/ Ipratropium (Duoneb) 3 ml RTQID NEB Last administered on 05/24/16 11 :29; Start 05/23/16 at 16:00 Warfarin Sodium (Coumadin) 2 mg 1X WARF ONCE PO ; Start 05/24/16 at 16:00; Stop 05/24/16 at 16:01 Ondansetron HCl (Zofran) 4 mg PRN Q6HRS PRN IV Nausea; Start 05/25/16 at 07:00; Stop 05/25/16 at 18:00 Fentanyl Citrate (Fentanyl 2ml Vial) 25 mcg PRN Q5MIN PRN IV MILD PAIN; Start 05/25/16 at 07:00; Stop 05/25/16 at 18:00 Fentanyl Citrate (Fentanyl 2ml Vial) 50 mcg PRN Q5MIN PRN IV MODERATE PAIN; Start 05/25/16 at 07:00; Stop 05/25/16 at 18:00 Morphine Sulfate 1 mg 1 mg PRN Q10MIN PRN IV SEVERE PAIN; Start 05/25/16 at 07: 00; Stop 05/25/16 at 18:00 Lactated Ringer's (Iv Lactated Ringers) 1,000 ml @ 30 mls/hr Q24H IV ; Start at 07:00; Stop 05/25/16 at 18:59 Lidocaine HCl 2 ml 1X PRN PRN ID IV START; Start 05/25/16 at 07:00; Stop at 18:00 Hydromorphone HCl (Dilaudid) 0.5 mg PRN Q10MIN PRN IV SEVERE PAIN, Second choice; Start 05/25/16 at 07:00; Stop 05/25/16 at 18:00 Active Scripts Active Zofran Odt (Ondansetron) 4 Mg Tab.rapdis 1 Tab SL Q8HRS PRN Reported Percocet 7.5-325 Mg Tablet (Oxycodone/Acetaminophen) 1 Each Tablet 1 Tab PO PRN Q8HRS PRN Xanax (Alprazolam) 0.25 Mg Tablet 2 Mg PO TID PRN Metoprolol Succinate ( Xl ) (Metoprolol Succinate) 200 Mg Tab.er.24h 1 Tab PO DAILY Hydralazine Hcl 50 Mg Tablet 1 Tab PO TID Amlodipine Besylate 10 Mg Tablet 1 Tab PO DAILY Vitals/I & O Vital Sign - Last 24 Hours 05/23/16 05/23/16 05/23/16 05/23/16 15:00 15:14 15:45 15:45 Temp 98.2 98.2 Pulse 107 Resp 20 19 21 B/P 155/48 157/69 Pulse Ox 88 89 89 O2 Delivery Nasal Cannula Nasal Cannula Nasal Cannula O2 Flow Rate 3.5 3.5 3.5 05/23/16 05/23/16 05/23/16 05/23/16 15:53 16:13 16:15 18:22 Pulse 104 Resp 20 21 B/P 154/69 Pulse Ox 90 90 90 O2 Delivery Nasal Cannula Nasal Cannula Nasal Cannula O2 Flow Rate 5.0 5.0 5.0 05/23/16 05/23/16 05/23/16 05/23/16 19:33 19:37 19:46 20:01 Temp 98.8 98.8 Pulse 109 Resp 20 18 B/P 144/71 Pulse Ox 90 85 91 O2 Delivery Nasal Cannula Nasal Cannula Room Air Nasal Cannula O2 Flow Rate 3.0 3.0 5.0 05/23/16 05/23/16 05/24/16 05/24/16 20:22 22:11 00:33 03:14 Temp 98.6 98.6 Pulse 109 114 Resp 20 20 18 B/P 144/71 126/35 Pulse Ox 91 85 O2 Delivery Nasal Cannula Nasal Cannula Nasal Cannula O2 Flow Rate 3.0 3.0 3.5 05/24/16 05/24/16 05/24/16 05/24/16 04:10 04:40 06:10 06:40 Resp 20 20 20 20 Pulse Ox 85 O2 Delivery Nasal Cannula Nasal Cannula O2 Flow Rate 3.0 3.0 05/24/16 05/24/16 05/24/16 05/24/16 07:00 07:41 08:00 09:00 Temp 98.1 98.1 Pulse 103 103 Resp 20 B/P 116/24 109/25 Pulse Ox 92 91 O2 Delivery Nasal Cannula Nasal Cannula Nasal Cannula O2 Flow Rate 5.0 5.0 5.0 05/24/16 05/24/16 05/24/16 05/24/16 09:00 09:00 09:00 10:08 Pulse 103 103 103 B/P 109/25 109/25 109/25 Pulse Ox 91 O2 Delivery Nasal Cannula O2 Flow Rate 5.0 05/24/16 05/24/16 05/24/16 05/24/16 10:49 11:00 11:30 11:36 Temp 97.9 97.9 Pulse 102 Resp 18 B/P 108/73 Pulse Ox 91 92 93 93 O2 Delivery Nasal Cannula Nasal Cannula Nasal Cannula Nasal Cannula O2 Flow Rate 5.0 5.0 5.0 5.0 05/24/16 12:15 Pulse Ox 93 O2 Delivery Nasal Cannula O2 Flow Rate 5.0 Intake and Output 05/23/16 05/23/16 05/24/16 15:00 23:00 07:00 Intake Total 300 ml Output Total 0 ml Balance 0 ml 300 ml FABIOLA ZHANG MD May 24, 2016 12:58
[2016-05-24] MEDS ORDERED: PIP/TAZO PER PHARMACY MC PRN (13:00)
[2016-05-24] MEDS ORDERED: IV NORMAL SALINE 1000ML BAG 1,000 ML IV PRN ×2 (13:14)
[2016-05-24] MEDS ORDERED: DIALYSIS PATIENT. MC PRN (13:15)
[2016-05-24] MEDS ORDERED: 0.9 % SODIUM CHLORIDE 10 ML DISP.SYRIN. IV PRN ×2 (13:15)
[2016-05-24] MEDS ORDERED: DIPHENHYDRAMINE 50 MG/ML VIAL IV PRN ×2 (13:15)
[2016-05-24] MEDS: PIPERACILLIN/TAZOBACTAM 2.25 GM in IV NORMAL SALINE 50ML 50 ML IV SCH ×3 (13:28→23:32)
[2016-05-24] MEDS ORDERED: DIPHENHYDRAMINE 50 MG/ML VIAL IV ONE (14:15)
--- NOTE | 2016-05-24 14:26 | RAD ---
EXAM: Chest one view. HISTORY: Pneumonia. COMPARISON: 05/23/2016. FINDINGS: A frontal view of the chest is obtained. There is a small loculated right basilar pleural effusion, unchanged. There is associated atelectasis in the right greater than left bases. Superimposed pneumonia cannot be excluded in the right base. There is some loculated fluid in the right major fissure. There is no pneumothorax. The heart is moderately enlarged. There is a stent in the left brachiocephalic vein. Chronic right rib fractures are noted. IMPRESSION: 1. Small loculated right basilar pleural effusion with superimposed atelectasis. Correlate for evidence of infection to assess for superimposed pneumonia. 2. Lesser left basilar atelectasis or scarring. 3. Moderate cardiomegaly.
--- NOTE | 2016-05-24 14:49 | PDOC ---
Dialysis Progress Note Dialysis Note Dialysis Note Seen on Hemodialysis, tolerating treatment Well Vitals on Hemodialysis: 158/87 111 General Appearance: Awake: Alert Oriented x 3 Neck: No JVD or JVP Chest: CTA Kevin Heart: S1 S2; tachy Abdomen - Soft NTND Extremities - No Edema ESRD: Dialysis as below F 180 NR 2.5 Hrs 2 K 2.5 Ca 140 Na 35 HC03 Qb 350 + Qd 500+ Heparin 0 Units Uf 1- 2 Kgs or to dry weight as tolerated May give 25-50 gms of 25% Albumin if needed to maintain Hemodynamic stability Treatment plan reviewed and discussed with cement finisher helper Vitals Vital Signs Vital Signs Date Time Temp Pulse Resp B/P Pulse Ox O2 Delivery O2 Flow Rate FiO2 05/24/16 14:00 93 Nasal Cannula 5.0 05/24/16 11:00 97.9 102 18 108/73 97.9 Labs Last Labs Laboratory Tests Test 05/23/16 05:40 05/24/16 10:05 White Blood Count 12.8x10^3/uL (4.0-11.0) 11.1x10^3/uL (4.0-11.0) Red Blood Count 2.49x10^6/uL (3.50-5.40) 2.22x10^6/uL (3.50-5.40) Hemoglobin 7.5g/dL (12.0-15.5) 7.0g/dL (12.0-15.5) Hematocrit 23.7% (36.0-47.0) 20.7% (36.0-47.0) Mean Corpuscular Volume 95fL (79-100) 93fL (79-100) Mean Corpuscular Hemoglobin 30pg (25-35) 31pg (25-35) Mean Corpuscular Hemoglobin Concent 32g/dL (31-37) 34g/dL (31-37) Red Cell Distribution Width 16.2% (11.5-14.5) 17.1% (11.5-14.5) Platelet Count 206x10^3/uL (140-400) 227x10^3/uL (140-400) Neutrophils (%) (Auto) 85% (31-73) 82% (31-73) Lymphocytes (%) (Auto) 6% (24-48) 9% (24-48) Monocytes (%) (Auto) 6% (0-9) 7% (0-9) Eosinophils (%) (Auto) 3% (0-3) 2% (0-3) Basophils (%) (Auto) 1% (0-3) 1% (0-3) Neutrophils # (Auto) 10.8x10^3uL (1.8-7.7) 9.1x10^3uL (1.8-7.7) Lymphocytes # (Auto) 0.7x10^3/uL (1.0-4.8) 1.0x10^3/uL (1.0-4.8) Monocytes # (Auto) 0.8x10^3/uL (0.0-1.1) 0.7x10^3/uL (0.0-1.1) Eosinophils # (Auto) 0.4x10^3/uL (0.0-0.7) 0.3x10^3/uL (0.0-0.7) Basophils # (Auto) 0.1x10^3/uL (0.0-0.2) 0.1x10^3/uL (0.0-0.2) Prothrombin Time 21.6SEC (11.7-14.0) Prothromb Time International Ratio 2.0 (0.8-1.1) Sodium Level 136mmol/L (136-145) 137mmol/L (136-145) Potassium Level 4.8mmol/L (3.5-5.1) 6.3mmol/L (3.5-5.1) Chloride Level 98mmol/L (98-107) 99mmol/L (98-107) Carbon Dioxide Level 27mmol/L (21-32) 28mmol/L (21-32) Anion Gap 11 (6-14) 10 (6-14) Blood Urea Nitrogen 33mg/dL (7-20) 52mg/dL (7-20) Creatinine 4.7mg/dL (0.6-1.0) 7.0mg/dL (0.6-1.0) Estimated GFR (Cockcroft-Gault) 11.2 7.1 Glucose Level 103mg/dL (70-99) 109mg/dL (70-99) Calcium Level 8.8mg/dL (8.5-10.1) 8.5mg/dL (8.5-10.1) Procalcitonin 3.09ng/mL (0.00-0.10) Laboratory Tests Test 05/24/16 10:05 White Blood Count 11.1x10^3/uL (4.0-11.0) Red Blood Count 2.22x10^6/uL (3.50-5.40) Hemoglobin 7.0g/dL (12.0-15.5) Hematocrit 20.7% (36.0-47.0) Mean Corpuscular Volume 93fL (79-100) Mean Corpuscular Hemoglobin 31pg (25-35) Mean Corpuscular Hemoglobin Concent 34g/dL (31-37) Red Cell Distribution Width 17.1% (11.5-14.5) Platelet Count 227x10^3/uL (140-400) Neutrophils (%) (Auto) 82% (31-73) Lymphocytes (%) (Auto) 9% (24-48) Monocytes (%) (Auto) 7% (0-9) Eosinophils (%) (Auto) 2% (0-3) Basophils (%) (Auto) 1% (0-3) Neutrophils # (Auto) 9.1x10^3uL (1.8-7.7) Lymphocytes # (Auto) 1.0x10^3/uL (1.0-4.8) Monocytes # (Auto) 0.7x10^3/uL (0.0-1.1) Eosinophils # (Auto) 0.3x10^3/uL (0.0-0.7) Basophils # (Auto) 0.1x10^3/uL (0.0-0.2) Sodium Level 137mmol/L (136-145) Potassium Level 6.3mmol/L (3.5-5.1) Chloride Level 99mmol/L (98-107) Carbon Dioxide Level 28mmol/L (21-32) Anion Gap 10 (6-14) Blood Urea Nitrogen 52mg/dL (7-20) Creatinine 7.0mg/dL (0.6-1.0) Estimated GFR (Cockcroft-Gault) 7.1 Glucose Level 109mg/dL (70-99) Calcium Level 8.5mg/dL (8.5-10.1) Procalcitonin 3.09ng/mL (0.00-0.10) Assessment Assessment Problems Medical Problems: (1) Abdominal pain Status: Acute (2) Hip fracture, right Status: Acute (3) Infection and inflammatory reaction due to internal right hip prosthesis, subsequent encounter Status: Acute (4) Intractable abdominal pain Status: Acute (5) Nausea & vomiting Status: Acute Problems: Plan Plan of Care Problems Medical Problems: (1) Abdominal pain Status: Acute (2) Hip fracture, right Status: Acute (3) Infection and inflammatory reaction due to internal right hip prosthesis, subsequent encounter Status: Acute (4) Intractable abdominal pain Status: Acute (5) Nausea & vomiting Status: Acute VALERY SOARES MD May 24, 2016 14:49
[2016-05-24] MEDS ORDERED: WARFARIN 2 MG TABLET. PO ONE (16:00)
--- NOTE | 2016-05-24 17:55 | PDOC ---
PROGRESS NOTES Subjective Subjective Problems overnight: Hip feels reasonably good currently she is getting up and around with physical therapy bearing partial about 25% weight. Leg lengths feel equal to her. Mentioned that she is going to have the procedure later today to apparently have a blood clot removed from her arm on the left Objective Vital Signs Vital Signs Date Time Temp Pulse Resp B/P Pulse Ox O2 Delivery O2 Flow Rate FiO2 05/24/16 17:16 93 Nasal Cannula 5.0 05/24/16 11:00 97.9 102 18 108/73 97.9 Physical Exam On exam hip incision clean dry intact leg lengths are equal distal neurovascular status intact she has reasonable range of motion Labs Laboratory Tests Test 05/23/16 05:40 05/24/16 10:05 White Blood Count 12.8x10^3/uL (4.0-11.0) 11.1x10^3/uL (4.0-11.0) Red Blood Count 2.49x10^6/uL (3.50-5.40) 2.22x10^6/uL (3.50-5.40) Hemoglobin 7.5g/dL (12.0-15.5) 7.0g/dL (12.0-15.5) Hematocrit 23.7% (36.0-47.0) 20.7% (36.0-47.0) Mean Corpuscular Volume 95fL (79-100) 93fL (79-100) Mean Corpuscular Hemoglobin 30pg (25-35) 31pg (25-35) Mean Corpuscular Hemoglobin Concent 32g/dL (31-37) 34g/dL (31-37) Red Cell Distribution Width 16.2% (11.5-14.5) 17.1% (11.5-14.5) Platelet Count 206x10^3/uL (140-400) 227x10^3/uL (140-400) Neutrophils (%) (Auto) 85% (31-73) 82% (31-73) Lymphocytes (%) (Auto) 6% (24-48) 9% (24-48) Monocytes (%) (Auto) 6% (0-9) 7% (0-9) Eosinophils (%) (Auto) 3% (0-3) 2% (0-3) Basophils (%) (Auto) 1% (0-3) 1% (0-3) Neutrophils # (Auto) 10.8x10^3uL (1.8-7.7) 9.1x10^3uL (1.8-7.7) Lymphocytes # (Auto) 0.7x10^3/uL (1.0-4.8) 1.0x10^3/uL (1.0-4.8) Monocytes # (Auto) 0.8x10^3/uL (0.0-1.1) 0.7x10^3/uL (0.0-1.1) Eosinophils # (Auto) 0.4x10^3/uL (0.0-0.7) 0.3x10^3/uL (0.0-0.7) Basophils # (Auto) 0.1x10^3/uL (0.0-0.2) 0.1x10^3/uL (0.0-0.2) Prothrombin Time 21.6SEC (11.7-14.0) Prothromb Time International Ratio 2.0 (0.8-1.1) Sodium Level 136mmol/L (136-145) 137mmol/L (136-145) Potassium Level 4.8mmol/L (3.5-5.1) 6.3mmol/L (3.5-5.1) Chloride Level 98mmol/L (98-107) 99mmol/L (98-107) Carbon Dioxide Level 27mmol/L (21-32) 28mmol/L (21-32) Anion Gap 11 (6-14) 10 (6-14) Blood Urea Nitrogen 33mg/dL (7-20) 52mg/dL (7-20) Creatinine 4.7mg/dL (0.6-1.0) 7.0mg/dL (0.6-1.0) Estimated GFR (Cockcroft-Gault) 11.2 7.1 Glucose Level 103mg/dL (70-99) 109mg/dL (70-99) Calcium Level 8.8mg/dL (8.5-10.1) 8.5mg/dL (8.5-10.1) Procalcitonin 3.09ng/mL (0.00-0.10) Laboratory Tests Test 05/24/16 10:05 White Blood Count 11.1x10^3/uL (4.0-11.0) Red Blood Count 2.22x10^6/uL (3.50-5.40) Hemoglobin 7.0g/dL (12.0-15.5) Hematocrit 20.7% (36.0-47.0) Mean Corpuscular Volume 93fL (79-100) Mean Corpuscular Hemoglobin 31pg (25-35) Mean Corpuscular Hemoglobin Concent 34g/dL (31-37) Red Cell Distribution Width 17.1% (11.5-14.5) Platelet Count 227x10^3/uL (140-400) Neutrophils (%) (Auto) 82% (31-73) Lymphocytes (%) (Auto) 9% (24-48) Monocytes (%) (Auto) 7% (0-9) Eosinophils (%) (Auto) 2% (0-3) Basophils (%) (Auto) 1% (0-3) Neutrophils # (Auto) 9.1x10^3uL (1.8-7.7) Lymphocytes # (Auto) 1.0x10^3/uL (1.0-4.8) Monocytes # (Auto) 0.7x10^3/uL (0.0-1.1) Eosinophils # (Auto) 0.3x10^3/uL (0.0-0.7) Basophils # (Auto) 0.1x10^3/uL (0.0-0.2) Sodium Level 137mmol/L (136-145) Potassium Level 6.3mmol/L (3.5-5.1) Chloride Level 99mmol/L (98-107) Carbon Dioxide Level 28mmol/L (21-32) Anion Gap 10 (6-14) Blood Urea Nitrogen 52mg/dL (7-20) Creatinine 7.0mg/dL (0.6-1.0) Estimated GFR (Cockcroft-Gault) 7.1 Glucose Level 109mg/dL (70-99) Calcium Level 8.5mg/dL (8.5-10.1) Procalcitonin 3.09ng/mL (0.00-0.10) Assessment Assessment POD# [], S/P [right total hip arthroplasty] Problems: Plan Plan of Care She will continue limited weightbearing with physical therapy no hip precautions Continue medical supportive care other procedures noted above ZHOU BROOKS MD May 24, 2016 17:55
[2016-05-24 19:00] VITALS: BP 192/94
[2016-05-24] MEDS: MORPHINE SULFATE 2 MG/ML DISP.SYRIN. IV PRN (20:22)
[2016-05-24] MEDS: hydrALAZINE 20 MG/ML VIAL. IVP PRN (21:55)
[2016-05-24 23:00] VITALS: BP 162/88
[2016-05-25] VITALS (13 sets, daily range): BP systolic 99–161; BP diastolic 40–103
[2016-05-25] MEDS: FENTANYL PF 100 MCG/2 ML VIAL. IV PRN ×7 (00:47→21:14)
[2016-05-25] MEDS: DIPHENHYDRAMINE 50 MG/ML VIAL IVP PRN ×3 (02:28→18:08)
[2016-05-25] MEDS: MORPHINE SULFATE 2 MG/ML DISP.SYRIN. IV PRN ×3 (02:29→09:07)
[2016-05-25] MEDS: LORAZEPAM 2 MG/ML VIAL IV PRN ×2 (04:51→15:15)
[2016-05-25] MEDS: PIPERACILLIN/TAZOBACTAM 2.25 GM in IV NORMAL SALINE 50ML 50 ML IV SCH ×4 (06:03→23:41)
[2016-05-25] MEDS ORDERED: FENTANYL PF 100 MCG/2 ML VIAL. IV PRN ×2 (07:00)
[2016-05-25] MEDS ORDERED: IV RINGERS,LACTATED 1000ML 1,000 ML IV SCH (07:00)
[2016-05-25] MEDS ORDERED: ONDANSETRON PF 4 MG/2 ML VIAL. IV PRN (07:00)
[2016-05-25] MEDS ORDERED: HYDROMORPHONE 2 MG/ML VIAL. IV PRN (07:00)
[2016-05-25] MEDS ORDERED: MORPHINE SULFATE 2 MG/ML DISP.SYRIN. IV PRN (07:00)
[2016-05-25] MEDS ORDERED: LIDOCAINE 1% 1 ML SYRINGE. ID PRN (07:00)
[2016-05-25] MEDS: FERROUS SULFATE 325 MG TABLET PO SCH ×2 (07:59→18:06)
[2016-05-25] MEDS: IPRATRPIUM/ALBUTEROL 0.5/2.5MG 3 ML NEBU. NEB SCH ×4 (08:00→19:28)
[2016-05-25] MEDS ORDERED: IV NORMAL SALINE 1000ML BAG 1,000 ML IV PRN (08:17)
[2016-05-25 08:30] LABS: BASO % 1 % (0-3); EOS % 4 % (0-3); LYMPH # 0.8 x10^3/uL (1.0-4.8); LYMPH % 9 % (24-48); MEAN CORPUSCULAR HEMOGLOBIN 31 pg (25-35); MEAN CORPUSCULAR HGB CONC 32 g/dL (31-37); MEAN CORPUSCULAR VOLUME 96 fL (79-100); MONO % 9 % (0-9); NEUT % 78 % (31-73); PLATELET COUNT 246 x10^3/uL (140-400); RED BLOOD COUNT 1.88 x10^6/uL (3.50-5.40); RED CELL DISTRIBUTION WIDTH 17.3 % (11.5-14.5); WHITE BLOOD COUNT 8.7 x10^3/uL (4.0-11.0)
[2016-05-25] MEDS ORDERED: DIPHENHYDRAMINE 50 MG/ML VIAL IV PRN (08:30)
[2016-05-25] MEDS ORDERED: DIALYSIS PATIENT. MC PRN (08:30)
[2016-05-25 08:32] LABS: HEMATOCRIT 18.1 % (36.0-47.0); HEMOGLOBIN 5.9 g/dL (12.0-15.5)
[2016-05-25 08:35] LABS: INR 1.6 (0.8-1.1)
[2016-05-25 08:42] LABS: CALCIUM 8.8 mg/dL (8.5-10.1); CREATININE 4.2 mg/dL (0.6-1.0); GFR 12.8; POTASSIUM 4.6 mmol/L (3.5-5.1)
[2016-05-25] MEDS: DIPHENHYDRAMINE 50 MG/ML VIAL IV PRN ×2 (08:45→09:00)
[2016-05-25] MEDS: POLYETHYLENE GLYCOL 3350 17 GM PACKET. PO SCH ×2 (09:00→20:16)
[2016-05-25] MEDS: LISINOPRIL 20 MG TABLET PO SCH (09:00)
[2016-05-25] MEDS: AMLODIPINE BESYLATE 10 MG TABLET PO SCH (09:00)
[2016-05-25] MEDS: MULTIVITAMIN with MINERAL TABLET. PO SCH (09:00)
[2016-05-25] MEDS: SENNOSIDES/DOCUSATE 8.6/50MG TABLET. PO SCH (09:00)
[2016-05-25] MEDS: HYDRALAZINE 50 MG TABLET PO SCH ×3 (09:00→20:16)
--- NOTE | 2016-05-25 09:15 | PDOC ---
PULMONARY PROGRESS NOTES Subjective asked again to see due to abnormal CXR no resp distress Vitals Vital Signs Date Time Temp Pulse Resp B/P Pulse Ox O2 Delivery O2 Flow Rate FiO2 05/25/16 09:07 94 Nasal Cannula 5.0 05/25/16 03:00 98.2 103 18 161/40 98.2 ROS: No Nausea, No Abdominal Pain, No Increase Cough General: Alert Lungs: Other (few crackles post) Cardiovascular: S1, S2 Abdomen: Soft, Non-tender Neuro Exam: Alert Extremities: No Edema Skin: Warm Labs Laboratory Tests Test 05/24/16 10:05 05/25/16 08:10 White Blood Count 11.1x10^3/uL (4.0-11.0) 8.7x10^3/uL (4.0-11.0) Red Blood Count 2.22x10^6/uL (3.50-5.40) 1.88x10^6/uL (3.50-5.40) Hemoglobin 7.0g/dL (12.0-15.5) 5.9g/dL (12.0-15.5) Hematocrit 20.7% (36.0-47.0) 18.1% (36.0-47.0) Mean Corpuscular Volume 93fL (79-100) 96fL (79-100) Mean Corpuscular Hemoglobin 31pg (25-35) 31pg (25-35) Mean Corpuscular Hemoglobin Concent 34g/dL (31-37) 32g/dL (31-37) Red Cell Distribution Width 17.1% (11.5-14.5) 17.3% (11.5-14.5) Platelet Count 227x10^3/uL (140-400) 246x10^3/uL (140-400) Neutrophils (%) (Auto) 82% (31-73) 78% (31-73) Lymphocytes (%) (Auto) 9% (24-48) 9% (24-48) Monocytes (%) (Auto) 7% (0-9) 9% (0-9) Eosinophils (%) (Auto) 2% (0-3) 4% (0-3) Basophils (%) (Auto) 1% (0-3) 1% (0-3) Neutrophils # (Auto) 9.1x10^3uL (1.8-7.7) 6.8x10^3uL (1.8-7.7) Lymphocytes # (Auto) 1.0x10^3/uL (1.0-4.8) 0.8x10^3/uL (1.0-4.8) Monocytes # (Auto) 0.7x10^3/uL (0.0-1.1) 0.7x10^3/uL (0.0-1.1) Eosinophils # (Auto) 0.3x10^3/uL (0.0-0.7) 0.4x10^3/uL (0.0-0.7) Basophils # (Auto) 0.1x10^3/uL (0.0-0.2) 0.0x10^3/uL (0.0-0.2) Sodium Level 137mmol/L (136-145) 139mmol/L (136-145) Potassium Level 6.3mmol/L (3.5-5.1) 4.6mmol/L (3.5-5.1) Chloride Level 99mmol/L (98-107) 101mmol/L (98-107) Carbon Dioxide Level 28mmol/L (21-32) 30mmol/L (21-32) Anion Gap 10 (6-14) 8 (6-14) Blood Urea Nitrogen 52mg/dL (7-20) 24mg/dL (7-20) Creatinine 7.0mg/dL (0.6-1.0) 4.2mg/dL (0.6-1.0) Estimated GFR (Cockcroft-Gault) 7.1 12.8 Glucose Level 109mg/dL (70-99) 99mg/dL (70-99) Calcium Level 8.5mg/dL (8.5-10.1) 8.8mg/dL (8.5-10.1) Procalcitonin 3.09ng/mL (0.00-0.10) Prothrombin Time 18.0SEC (11.7-14.0) Prothromb Time International Ratio 1.6 (0.8-1.1) Laboratory Tests Test 05/24/16 10:05 05/25/16 08:10 White Blood Count 11.1x10^3/uL (4.0-11.0) 8.7x10^3/uL (4.0-11.0) Red Blood Count 2.22x10^6/uL (3.50-5.40) 1.88x10^6/uL (3.50-5.40) Hemoglobin 7.0g/dL (12.0-15.5) 5.9g/dL (12.0-15.5) Hematocrit 20.7% (36.0-47.0) 18.1% (36.0-47.0) Mean Corpuscular Volume 93fL (79-100) 96fL (79-100) Mean Corpuscular Hemoglobin 31pg (25-35) 31pg (25-35) Mean Corpuscular Hemoglobin Concent 34g/dL (31-37) 32g/dL (31-37) Red Cell Distribution Width 17.1% (11.5-14.5) 17.3% (11.5-14.5) Platelet Count 227x10^3/uL (140-400) 246x10^3/uL (140-400) Neutrophils (%) (Auto) 82% (31-73) 78% (31-73) Lymphocytes (%) (Auto) 9% (24-48) 9% (24-48) Monocytes (%) (Auto) 7% (0-9) 9% (0-9) Eosinophils (%) (Auto) 2% (0-3) 4% (0-3) Basophils (%) (Auto) 1% (0-3) 1% (0-3) Neutrophils # (Auto) 9.1x10^3uL (1.8-7.7) 6.8x10^3uL (1.8-7.7) Lymphocytes # (Auto) 1.0x10^3/uL (1.0-4.8) 0.8x10^3/uL (1.0-4.8) Monocytes # (Auto) 0.7x10^3/uL (0.0-1.1) 0.7x10^3/uL (0.0-1.1) Eosinophils # (Auto) 0.3x10^3/uL (0.0-0.7) 0.4x10^3/uL (0.0-0.7) Basophils # (Auto) 0.1x10^3/uL (0.0-0.2) 0.0x10^3/uL (0.0-0.2) Sodium Level 137mmol/L (136-145) 139mmol/L (136-145) Potassium Level 6.3mmol/L (3.5-5.1) 4.6mmol/L (3.5-5.1) Chloride Level 99mmol/L (98-107) 101mmol/L (98-107) Carbon Dioxide Level 28mmol/L (21-32) 30mmol/L (21-32) Anion Gap 10 (6-14) 8 (6-14) Blood Urea Nitrogen 52mg/dL (7-20) 24mg/dL (7-20) Creatinine 7.0mg/dL (0.6-1.0) 4.2mg/dL (0.6-1.0) Estimated GFR (Cockcroft-Gault) 7.1 12.8 Glucose Level 109mg/dL (70-99) 99mg/dL (70-99) Calcium Level 8.5mg/dL (8.5-10.1) 8.8mg/dL (8.5-10.1) Procalcitonin 3.09ng/mL (0.00-0.10) Prothrombin Time 18.0SEC (11.7-14.0) Prothromb Time International Ratio 1.6 (0.8-1.1) Medications Active Scripts Medications Dose Route/Sig Days Date Category Zofran Odt (Ondansetron) 4 Mg Tab.rapdis 1 Tab SL Q8HRS PRN 10/28/15 Rx Percocet 7.5-325 Mg Tablet (Oxycodone/Acetaminophen) 1 Each Tablet 1 Tab PO PRN Q8HRS PRN 08/30/14 Reported Xanax (Alprazolam) 0.25 Mg Tablet 2 Mg PO TID PRN 11/10/13 Reported Metoprolol Succinate ( Xl ) (Metoprolol Succinate) 200 Mg Tab.er.24h 1 Tab PO DAILY 11/10/13 Reported Hydralazine Hcl 50 Mg Tablet 1 Tab PO TID 11/10/13 Reported Amlodipine Besylate 10 Mg Tablet 1 Tab PO DAILY 11/10/13 Reported Impression . ACUTE RESP FAILURE SEC TO PEA, RESOLVED PEA SUSPECT ACIDOSIS VS HYPOVOLEMIA/HYPERKALEMIA, RESOLVED ESRD/HD S/P HIP REPAIR WORSENING CXR , SUSPECT CHF, CANNOT EXCLUDE PNEUMONIA Plan . Nasal canula HD with UF labs reviewed / CXR reviewed Agree with Don f/u cxr in few days d/w PCP SINDY SORENSEN MD May 25, 2016 09:15
--- NOTE | 2016-05-25 09:48 | PDOC ---
Dialysis Progress Note Dialysis Note Dialysis Note Seen on Hemodialysis, tolerating treatment Well Vitals on Hemodialysis: 175/103 107 General Appearance: Awake: Alert Oriented x 3 Neck: No JVD or JVP Chest: CTA Kevin Heart: S1 S2; tachy Abdomen - Soft NTND Extremities - No Edema ESRD: Dialysis as below F 180 NR 2.15 Hrs (per pt preference) 3 K 2.5 Ca 140 Na 35 HC03 Qb 350 + Qd 500+ Heparin 0 Units Uf 1 Kgs or to dry weight as tolerated May give 25-50 gms of 25% Albumin if needed to maintain Hemodynamic stability Treatment plan reviewed and discussed with field radio technician to get BT on floor after HD. I have explained the importance of BT with HD but it may extend her HD. She will think about it. Vitals Vital Signs Vital Signs Date Time Temp Pulse Resp B/P Pulse Ox O2 Delivery O2 Flow Rate FiO2 05/25/16 09:07 94 Nasal Cannula 5.0 05/25/16 03:00 98.2 103 18 161/40 98.2 Labs Last Labs Laboratory Tests Test 05/24/16 10:05 05/25/16 08:10 White Blood Count 11.1x10^3/uL (4.0-11.0) 8.7x10^3/uL (4.0-11.0) Red Blood Count 2.22x10^6/uL (3.50-5.40) 1.88x10^6/uL (3.50-5.40) Hemoglobin 7.0g/dL (12.0-15.5) 5.9g/dL (12.0-15.5) Hematocrit 20.7% (36.0-47.0) 18.1% (36.0-47.0) Mean Corpuscular Volume 93fL (79-100) 96fL (79-100) Mean Corpuscular Hemoglobin 31pg (25-35) 31pg (25-35) Mean Corpuscular Hemoglobin Concent 34g/dL (31-37) 32g/dL (31-37) Red Cell Distribution Width 17.1% (11.5-14.5) 17.3% (11.5-14.5) Platelet Count 227x10^3/uL (140-400) 246x10^3/uL (140-400) Neutrophils (%) (Auto) 82% (31-73) 78% (31-73) Lymphocytes (%) (Auto) 9% (24-48) 9% (24-48) Monocytes (%) (Auto) 7% (0-9) 9% (0-9) Eosinophils (%) (Auto) 2% (0-3) 4% (0-3) Basophils (%) (Auto) 1% (0-3) 1% (0-3) Neutrophils # (Auto) 9.1x10^3uL (1.8-7.7) 6.8x10^3uL (1.8-7.7) Lymphocytes # (Auto) 1.0x10^3/uL (1.0-4.8) 0.8x10^3/uL (1.0-4.8) Monocytes # (Auto) 0.7x10^3/uL (0.0-1.1) 0.7x10^3/uL (0.0-1.1) Eosinophils # (Auto) 0.3x10^3/uL (0.0-0.7) 0.4x10^3/uL (0.0-0.7) Basophils # (Auto) 0.1x10^3/uL (0.0-0.2) 0.0x10^3/uL (0.0-0.2) Sodium Level 137mmol/L (136-145) 139mmol/L (136-145) Potassium Level 6.3mmol/L (3.5-5.1) 4.6mmol/L (3.5-5.1) Chloride Level 99mmol/L (98-107) 101mmol/L (98-107) Carbon Dioxide Level 28mmol/L (21-32) 30mmol/L (21-32) Anion Gap 10 (6-14) 8 (6-14) Blood Urea Nitrogen 52mg/dL (7-20) 24mg/dL (7-20) Creatinine 7.0mg/dL (0.6-1.0) 4.2mg/dL (0.6-1.0) Estimated GFR (Cockcroft-Gault) 7.1 12.8 Glucose Level 109mg/dL (70-99) 99mg/dL (70-99) Calcium Level 8.5mg/dL (8.5-10.1) 8.8mg/dL (8.5-10.1) Procalcitonin 3.09ng/mL (0.00-0.10) Prothrombin Time 18.0SEC (11.7-14.0) Prothromb Time International Ratio 1.6 (0.8-1.1) Laboratory Tests Test 05/24/16 10:05 05/25/16 08:10 White Blood Count 11.1x10^3/uL (4.0-11.0) 8.7x10^3/uL (4.0-11.0) Red Blood Count 2.22x10^6/uL (3.50-5.40) 1.88x10^6/uL (3.50-5.40) Hemoglobin 7.0g/dL (12.0-15.5) 5.9g/dL (12.0-15.5) Hematocrit 20.7% (36.0-47.0) 18.1% (36.0-47.0) Mean Corpuscular Volume 93fL (79-100) 96fL (79-100) Mean Corpuscular Hemoglobin 31pg (25-35) 31pg (25-35) Mean Corpuscular Hemoglobin Concent 34g/dL (31-37) 32g/dL (31-37) Red Cell Distribution Width 17.1% (11.5-14.5) 17.3% (11.5-14.5) Platelet Count 227x10^3/uL (140-400) 246x10^3/uL (140-400) Neutrophils (%) (Auto) 82% (31-73) 78% (31-73) Lymphocytes (%) (Auto) 9% (24-48) 9% (24-48) Monocytes (%) (Auto) 7% (0-9) 9% (0-9) Eosinophils (%) (Auto) 2% (0-3) 4% (0-3) Basophils (%) (Auto) 1% (0-3) 1% (0-3) Neutrophils # (Auto) 9.1x10^3uL (1.8-7.7) 6.8x10^3uL (1.8-7.7) Lymphocytes # (Auto) 1.0x10^3/uL (1.0-4.8) 0.8x10^3/uL (1.0-4.8) Monocytes # (Auto) 0.7x10^3/uL (0.0-1.1) 0.7x10^3/uL (0.0-1.1) Eosinophils # (Auto) 0.3x10^3/uL (0.0-0.7) 0.4x10^3/uL (0.0-0.7) Basophils # (Auto) 0.1x10^3/uL (0.0-0.2) 0.0x10^3/uL (0.0-0.2) Sodium Level 137mmol/L (136-145) 139mmol/L (136-145) Potassium Level 6.3mmol/L (3.5-5.1) 4.6mmol/L (3.5-5.1) Chloride Level 99mmol/L (98-107) 101mmol/L (98-107) Carbon Dioxide Level 28mmol/L (21-32) 30mmol/L (21-32) Anion Gap 10 (6-14) 8 (6-14) Blood Urea Nitrogen 52mg/dL (7-20) 24mg/dL (7-20) Creatinine 7.0mg/dL (0.6-1.0) 4.2mg/dL (0.6-1.0) Estimated GFR (Cockcroft-Gault) 7.1 12.8 Glucose Level 109mg/dL (70-99) 99mg/dL (70-99) Calcium Level 8.5mg/dL (8.5-10.1) 8.8mg/dL (8.5-10.1) Procalcitonin 3.09ng/mL (0.00-0.10) Prothrombin Time 18.0SEC (11.7-14.0) Prothromb Time International Ratio 1.6 (0.8-1.1) Assessment Assessment Problems Medical Problems: (1) Abdominal pain Status: Acute (2) Hip fracture, right Status: Acute (3) Infection and 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
[2016-05-25] MEDS: LABETALOL 20 MG/4 ML DISP.SYRIN. IVP PRN (10:08)
[2016-05-25] MEDS: METOPROLOL SUCC 24HR ER 100 MG TAB.ER.24H. PO SCH (11:13)
--- NOTE | 2016-05-25 11:44 | PDOC ---
PROGRESS NOTES Chief Complaint Chief Complaint 0. S/P code blue after hip replacement with rib fx 1. Abdominal pain; chronic, unclear etiology 2. Narcotic dependence. 3. Hx osteomyelitis, and replaced hip hardware. 4. elevated Alk Phos; isolated. 5. ESRD: HD tts 6. Anemia; severe, 2/2 ESRD. 7. acute resp failure with fluid overloaded with ESRD and possible PNA 8. left ARM AVF thrombosis 9. non compliance, wants to go home if not getting pain meds 10.HTN with hypotention now PLAN: - PRN duonebs breathing treatment - cont supplemental O2 - awaiting thrombectomy of the L arm today - Pulmonology following, appreciate input; CXR showing worsening moderate bibasilar atelectasis/infiltrate - cont wound care - PTOT - cont narcotics for hip and rib pain - cont IV Zofran for nausea - cont Benadryl for itchiness add zosyn , repeated cxr as per renal, may need HD daily for now , now has left femoral HD cath. hold HTN meds if low BP dc to select if ok with specialist 2u PRBC transfusion today History of Present Illness History of Present Illness Patient lying down in bed when evaluated this AM. Pt looks mild lethargic, and fells asleep when talking, but saying she had insomnia. she refused PTOT, REFUSE po pain meds, requires iv pain meds. Hb 5.7 today, pt refused labs ESRD ON HD tts. saying cough a little bit daily, still require 5L NC Vitals Vitals Vital Signs Date Time Temp Pulse Resp B/P Pulse Ox O2 Delivery O2 Flow Rate FiO2 05/25/16 11:27 99 Nasal Cannula 5.0 05/25/16 11:13 105 157/96 05/25/16 03:00 98.2 18 98.2 Physical Exam General: Alert, Oriented X3, Cooperative Heart: Regular rate, Normal S1, Normal S2, No murmurs, Gallops Lungs: Other (few crackles post) Abdomen: Normal bowel sounds, Soft, No tenderness, No hepatosplenomegaly, No masses Extremities: No edema Skin: No rashes Labs LABS Laboratory Tests Test 05/25/16 08:10 White Blood Count 8.7x10^3/uL (4.0-11.0) Red Blood Count 1.88x10^6/uL (3.50-5.40) Hemoglobin 5.9g/dL (12.0-15.5) Hematocrit 18.1% (36.0-47.0) Mean Corpuscular Volume 96fL (79-100) Mean Corpuscular Hemoglobin 31pg (25-35) Mean Corpuscular Hemoglobin Concent 32g/dL (31-37) Red Cell Distribution Width 17.3% (11.5-14.5) Platelet Count 246x10^3/uL (140-400) Neutrophils (%) (Auto) 78% (31-73) Lymphocytes (%) (Auto) 9% (24-48) Monocytes (%) (Auto) 9% (0-9) Eosinophils (%) (Auto) 4% (0-3) Basophils (%) (Auto) 1% (0-3) Neutrophils # (Auto) 6.8x10^3uL (1.8-7.7) Lymphocytes # (Auto) 0.8x10^3/uL (1.0-4.8) Monocytes # (Auto) 0.7x10^3/uL (0.0-1.1) Eosinophils # (Auto) 0.4x10^3/uL (0.0-0.7) Basophils # (Auto) 0.0x10^3/uL (0.0-0.2) Prothrombin Time 18.0SEC (11.7-14.0) Prothromb Time International Ratio 1.6 (0.8-1.1) Sodium Level 139mmol/L (136-145) Potassium Level 4.6mmol/L (3.5-5.1) Chloride Level 101mmol/L (98-107) Carbon Dioxide Level 30mmol/L (21-32) Anion Gap 8 (6-14) Blood Urea Nitrogen 24mg/dL (7-20) Creatinine 4.2mg/dL (0.6-1.0) Estimated GFR (Cockcroft-Gault) 12.8 Glucose Level 99mg/dL (70-99) Calcium Level 8.8mg/dL (8.5-10.1) Review of Systems Review of Systems no fever, chills, sob or chest pain Assessment and Plan Assessmemt and Plan Problems Medical Problems: (1) Abdominal pain Status: Acute (2) Hip fracture, right Status: Acute (3) Infection and inflammatory reaction due to internal right hip prosthesis, subsequent encounter Status: Acute (4) Intractable abdominal pain Status: Acute (5) Nausea & vomiting Status: Acute Problems: Comment Review of Relevant I have reviewed the following items lynnette (where applicable) has been applied. Labs Laboratory Tests Test 05/24/16 10:05 05/25/16 08:10 White Blood Count 11.1x10^3/uL (4.0-11.0) 8.7x10^3/uL (4.0-11.0) Red Blood Count 2.22x10^6/uL (3.50-5.40) 1.88x10^6/uL (3.50-5.40) Hemoglobin 7.0g/dL (12.0-15.5) 5.9g/dL (12.0-15.5) Hematocrit 20.7% (36.0-47.0) 18.1% (36.0-47.0) Mean Corpuscular Volume 93fL (79-100) 96fL (79-100) Mean Corpuscular Hemoglobin 31pg (25-35) 31pg (25-35) Mean Corpuscular Hemoglobin Concent 34g/dL (31-37) 32g/dL (31-37) Red Cell Distribution Width 17.1% (11.5-14.5) 17.3% (11.5-14.5) Platelet Count 227x10^3/uL (140-400) 246x10^3/uL (140-400) Neutrophils (%) (Auto) 82% (31-73) 78% (31-73) Lymphocytes (%) (Auto) 9% (24-48) 9% (24-48) Monocytes (%) (Auto) 7% (0-9) 9% (0-9) Eosinophils (%) (Auto) 2% (0-3) 4% (0-3) Basophils (%) (Auto) 1% (0-3) 1% (0-3) Neutrophils # (Auto) 9.1x10^3uL (1.8-7.7) 6.8x10^3uL (1.8-7.7) Lymphocytes # (Auto) 1.0x10^3/uL (1.0-4.8) 0.8x10^3/uL (1.0-4.8) Monocytes # (Auto) 0.7x10^3/uL (0.0-1.1) 0.7x10^3/uL (0.0-1.1) Eosinophils # (Auto) 0.3x10^3/uL (0.0-0.7) 0.4x10^3/uL (0.0-0.7) Basophils # (Auto) 0.1x10^3/uL (0.0-0.2) 0.0x10^3/uL (0.0-0.2) Sodium Level 137mmol/L (136-145) 139mmol/L (136-145) Potassium Level 6.3mmol/L (3.5-5.1) 4.6mmol/L (3.5-5.1) Chloride Level 99mmol/L (98-107) 101mmol/L (98-107) Carbon Dioxide Level 28mmol/L (21-32) 30mmol/L (21-32) Anion Gap 10 (6-14) 8 (6-14) Blood Urea Nitrogen 52mg/dL (7-20) 24mg/dL (7-20) Creatinine 7.0mg/dL (0.6-1.0) 4.2mg/dL (0.6-1.0) Estimated GFR (Cockcroft-Gault) 7.1 12.8 Glucose Level 109mg/dL (70-99) 99mg/dL (70-99) Calcium Level 8.5mg/dL (8.5-10.1) 8.8mg/dL (8.5-10.1) Procalcitonin 3.09ng/mL (0.00-0.10) Prothrombin Time 18.0SEC (11.7-14.0) Prothromb Time International Ratio 1.6 (0.8-1.1) Laboratory Tests Test 05/25/16 08:10 White Blood Count 8.7x10^3/uL (4.0-11.0) Red Blood Count 1.88x10^6/uL (3.50-5.40) Hemoglobin 5.9g/dL (12.0-15.5) Hematocrit 18.1% (36.0-47.0) Mean Corpuscular Volume 96fL (79-100) Mean Corpuscular Hemoglobin 31pg (25-35) Mean Corpuscular Hemoglobin Concent 32g/dL (31-37) Red Cell Distribution Width 17.3% (11.5-14.5) Platelet Count 246x10^3/uL (140-400) Neutrophils (%) (Auto) 78% (31-73) Lymphocytes (%) (Auto) 9% (24-48) Monocytes (%) (Auto) 9% (0-9) Eosinophils (%) (Auto) 4% (0-3) Basophils (%) (Auto) 1% (0-3) Neutrophils # (Auto) 6.8x10^3uL (1.8-7.7) Lymphocytes # (Auto) 0.8x10^3/uL (1.0-4.8) Monocytes # (Auto) 0.7x10^3/uL (0.0-1.1) Eosinophils # (Auto) 0.4x10^3/uL (0.0-0.7) Basophils # (Auto) 0.0x10^3/uL (0.0-0.2) Prothrombin Time 18.0SEC (11.7-14.0) Prothromb Time International Ratio 1.6 (0.8-1.1) Sodium Level 139mmol/L (136-145) Potassium Level 4.6mmol/L (3.5-5.1) Chloride Level 101mmol/L (98-107) Carbon Dioxide Level 30mmol/L (21-32) Anion Gap 8 (6-14) Blood Urea Nitrogen 24mg/dL (7-20) Creatinine 4.2mg/dL (0.6-1.0) Estimated GFR (Cockcroft-Gault) 12.8 Glucose Level 99mg/dL (70-99) Calcium Level 8.8mg/dL (8.5-10.1) Medications Current Medications Ondansetron HCl (Zofran) 4 mg 1X ONCE IV Last administered on 05/15/16t 19:17 ; Start 05/15/16 at 19:00; Stop 05/15/16 at 19:01; Status DC Morphine Sulfate 4 mg 1X ONCE IV Last administered on 05/15/16 19:19; Start 05/15/16 at 19:00; Stop 05/15/16 at 19:01; Status DC Hydralazine HCl (Apresoline) 10 mg 1X ONCE IVP Last administered on 05/15/16 19:21; Start 05/15/16 at 19:00; Stop 05/15/16 at 19:01; Status DC Lorazepam (Ativan) 1 mg 1X ONCE PO Last administered on 05/15/16 20:04; Start 05/15/16 at 19:45; Stop 05/15/16 at 19:46; Status DC Alprazolam (Xanax) 2 mg PRN TID PRN PO ANXIETY / AGITATION; Start 05/15/16 at 20:45; Stop 05/15/16 at 20:47; Status DC Amlodipine Besylate (Norvasc) 10 mg DAILY PO Last administered on 05/23/16 07: 50; Start 05/16/16 at 09:00 Hydralazine HCl (Apresoline) 50 mg TID PO Last administered on 05/24/16 20:26; Start 05/16/16 at 09:00 Ondansetron HCl (Zofran Odt) 4 mg PRN Q8HRS PRN PO NAUSEA; Start 05/15/16 at 20 :45; Stop 05/21/16 at 10:18; Status DC Oxycodone/ Acetaminophen (Percocet 7.5/ 325) 1 tab PRN Q8HRS PRN PO PAIN; Start 05/15/16 at 20:45; Status Cancel Metoprolol Succinate (Toprol Xl) 200 mg DAILY PO Last administered on 05/25/16 11:13; Start 05/16/16 at 09:00 Alprazolam (Xanax) 2 mg PRN TID PRN PO ANXIETY / AGITATION; Start 05/15/16 at 20:47 Morphine Sulfate 4 mg 1X ONCE IV Last administered on 05/15/16 21:13; Start 05/15/16 at 21:00; Stop 05/15/16 at 21:01; Status DC Ondansetron HCl (Zofran) 4 mg 1X ONCE IV Last administered on 05/15/16 21:08 ; Start 05/15/16 at 21:00; Stop 05/15/16 at 21:01; Status DC Labetalol HCl (Normodyne) 20 mg PRN Q6HRS PRN IVP HYPERTENSION, SEE COMMENTS Last administered on 05/25/16 10:08; Start 05/15/16 at 23:30 Lorazepam (Ativan) 1 mg PRN Q6HRS PRN IV ANXIETY / AGITATION Last administered on 05/16/16 20:22; Start 05/15/16 at 23:30; Stop 05/16/16 at 22:44; Status DC Morphine Sulfate 2 mg PRN Q2HR PRN IV PAIN Last administered on 05/16/16 10:52 ; Start 05/15/16 at 23:30; Stop 05/16/16 at 11:42; Status DC Morphine Sulfate 4 mg PRN Q2HR PRN IV PAIN; Start 05/15/16 at 23:30; Stop 05/16 at 11:42; Status DC Diphenhydramine HCl (Benadryl) 50 mg PRN Q6HRS PRN IVP ITCHING Last administered on 05/16/16 20:23; Start 05/15/16 at 23:30; Stop 05/16/16 at 22:44 ; Status DC Morphine Sulfate 1 mg PRN Q2HR PRN IV PAIN Last administered on 05/17/16 18:38 ; Start 05/16/16 at 11:45; Stop 05/21/16 at 10:18; Status DC Diphenhydramine HCl (Benadryl) 25 mg PRN Q8HRS PRN IVP ITCHING Last administered on 05/18/16 04:54; Start 05/16/16 at 23:30; Stop 05/18/16 at 15:51 ; Status DC Lorazepam (Ativan) 0.5 mg PRN Q8HRS PRN IV ANXIETY / AGITATION Last administered on 05/25/16 04:51; Start 05/16/16 at 23:30 Metoclopramide HCl (Reglan) 5 mg PRN Q8HRS PRN IV NAUSEA/VOMITING Last administered on 05/22/16 19:45; Start 05/16/16 at 22:45 Polyethylene Glycol (miraLAX PACKET) 17 gm BID PO ; Start 05/17/16 at 09:00 Lidocaine HCl 2 ml 2 ml STK-MED ONCE .ROUTE ; Start 05/17/16 at 11:20; Stop at 11:21; Status DC Sodium Chloride (Iv Sodium Chloride 0.9% 1000ml Bag) 1,000 ml @ 1,000 mls/hr Q1H PRN IV hypotension; Start 05/17/16 at 12:42; Stop 05/17/16 at 18:41; Status DC Diphenhydramine HCl (Benadryl) 25 mg 1X PRN PRN IV ITCHING; Start 05/17/16 at 12:45; Stop 05/18/16 at 12:44; Status DC Diphenhydramine HCl (Benadryl) 25 mg 1X PRN PRN IV ITCHING; Start 05/17/16 at 12:45; Stop 05/18/16 at 12:44; Status DC Info (PHARMACY MONITORING -- do not chart) 1 each PRN DAILY PRN MC SEE COMMENTS ; Start 05/17/16 at 12:45; Status UNV Info 1 each 1 each PRN DAILY PRN MC SEE COMMENTS; Start 05/17/16 at 12:45; Status UNV Morphine Sulfate/ Ketorolac Tromethamine/ Ropivacaine/ Epinephrine HCl/ Sodium Chloride (Morphine 5mg Syringe/Toradol/ Naropin 0.5%/ Adrenalin/Iv Sodium Chloride 0.9% 100ml) 100.5 ml @ 100.5 mls/ hr 1X PERIOP ONCE INT ART Last administered on 05/18/16 08:20; Start 05/18/16 at 06:00; Stop 05/18/16 at 06:59 ; Status DC Ondansetron HCl (Zofran) 4 mg PRN Q6HRS PRN IV Nausea; Start 05/18/16 at 07:00 ; Stop 05/19/16 at 06:59; Status DC Fentanyl Citrate (Fentanyl 2ml Vial) 25 mcg PRN Q5MIN PRN IV MILD PAIN Last administered on 05/18/16 16:42; Start 05/18/16 at 07:00; Stop 05/19/16 at 06:59 ; Status DC Fentanyl Citrate (Fentanyl 2ml Vial) 50 mcg PRN Q5MIN PRN IV MODERATE PAIN Last administered on 05/19/16 02:10; Start 05/18/16 at 07:00; Stop 05/19/16 at 06 :59; Status DC Morphine Sulfate 1 mg PRN Q10MIN PRN IV SEVERE PAIN; Start 05/18/16 at 07:00; Stop 05/19/16 at 06:59; Status DC Lidocaine HCl 2 ml 1X PRN PRN ID IV START; Start 05/18/16 at 07:00; Stop at 06:59; Status DC Hydromorphone HCl (Dilaudid) 0.5 mg PRN Q10MIN PRN IV SEVERE PAIN, Second choice Last administered on 05/19/16 00:53; Start 05/18/16 at 07:00; Stop at 06:59; Status DC Prochlorperazine Edisylate 5 mg 5 mg PACU PRN PRN IV NAUSEA; Start 05/18/16 at 07:00; Stop 05/19/16 at 06:59; Status DC Sodium Chloride (Iv Sodium Chloride 0.9% 1000ml Bag) 1,000 ml @ 30 mls/hr Q24H IV ; Start 05/18/16 at 07:00; Stop 05/19/16 at 07:48; Status DC Warfarin Sodium (Coumadin) 5 mg 1X ONCE PO Last administered on 05/17/16 16: 31; Start 05/17/16 at 17:00; Stop 05/17/16 at 17:01; Status DC Acetaminophen/ Hydrocodone Bitart (Lortab 7.5/325) 2 tab 1X ONCE PO ; Start at 05:30; Stop 05/18/16 at 05:31; Status Cancel Acetaminophen/ Hydrocodone Bitart 2 tab 2 tab 1X PREOP PRN PO PRIOR TO PROCEDURE; Start 05/18/16 at 06:00; Stop 05/18/16 at 18:00; Status DC Cefazolin Sodium/ Dextrose 50 ml @ 100 mls/hr 1X PREOP PRN IV PRIOR TO PROCEDURE; Start 05/18/16 at 06:00; Stop 05/18/16 at 18:00; Status DC Morphine Sulfate/ Ketorolac Tromethamine/ Ropivacaine/ Epinephrine HCl/ Sodium Chloride (Morphine 5mg Syringe/Toradol/ Naropin 0.5%/ Adrenalin/Iv Sodium Chloride 0.9% 50ml) 100.5 ml @ 100.5 mls/ hr 1X PERIOP ONCE INT ART ; Start at 06:00; Stop 05/18/16 at 06:59; Status Cancel Dexamethasone Sodium Phosphate (Decadron) 20 mg STK-MED ONCE .ROUTE ; Start at 06:57; Stop 05/18/16 at 06:58; Status DC Ondansetron HCl 4 mg 4 mg STK-MED ONCE .ROUTE ; Start 05/18/16 at 06:57; Stop at 06:58; Status DC Propofol (Diprivan) 20 ml @ As Directed STK-MED ONCE IV ; Start 05/18/16 at 06: 57; Stop 05/18/16 at 06:58; Status DC Lidocaine HCl 100 mg STK-MED ONCE .ROUTE ; Start 05/18/16 at 06:57; Stop at 06:58; Status DC Fentanyl Citrate (Fentanyl 5ml Vial) 250 mcg STK-MED ONCE .ROUTE ; Start at 06:57; Stop 05/18/16 at 06:58; Status DC Midazolam HCl (Versed) 2 mg STK-MED ONCE .ROUTE ; Start 05/18/16 at 06:58; Stop 05/18/16 at 06:59; Status DC Rocuronium [place] 50 mg 50 mg STK-MED ONCE .ROUTE ; Start 05/18/16 at 06:58; Stop 05/18/16 at 06:59; Status DC Acetaminophen 100 ml @ As Directed STK-MED ONCE IV ; Start 05/18/16 at 07:13; Stop 05/18/16 at 07:14; Status DC Sodium Chloride 500 ml @ 30 mls/hr [id number] IV Last administered on 05/18/16t 07:45; Start 05/18/16 at 07:45; Stop 05/19/16 at 07:48; Status DC Cefazolin Sodium (Ancef 1gm Ivpb For Omni) 50 ml @ As Directed STK-MED ONCE IV ; Start 05/18/16 at 07:45; Stop 05/18/16 at 07:46; Status DC Fentanyl Citrate (Fentanyl 5ml Vial) 250 mcg STK-MED ONCE .ROUTE ; Start at 08:27; Stop 05/18/16 at 08:28; Status DC Rocuronium [place] (Zemuron) 50 mg STK-MED ONCE .ROUTE ; Start 05/18/16 at 08:27 ; Stop 05/18/16 at 08:28; Status DC Morphine Sulfate 5 mg 5 mg STK-MED ONCE .ROUTE ; Start 05/18/16 at 08:59; Stop 05/18/16 at 09:00; Status DC Cefazolin Sodium (Ancef 1gm Ivpb For Omni) 50 ml @ 100 mls/hr 1X PREOP PRN IV PER PROTOCOL Last administered on 05/18/16 08:06; Start 05/18/16 at 09:30; Stop 05/19/16 at 09:29; Status DC Lisinopril (Prinivil) 20 mg DAILY PO Last administered on 05/23/16 07:50; Start 05/18/16 at 11:30 Albuterol Sulfate (Ventolin Neb Soln) 2.5 mg STK-MED ONCE .ROUTE ; Start at 11:24; Stop 05/18/16 at 11:25; Status DC Morphine Sulfate 10 mg STK-MED ONCE .ROUTE ; Start 05/18/16 at 11:55; Stop 05/18 at 11:56; Status DC Cefazolin Sodium/ Dextrose 2 gm 2 gm STK-MED ONCE IV ; Start 05/18/16 at 07:30; Stop 05/18/16 at 12:41; Status DC Cefazolin Sodium (Ancef 1gm Ivpb For Omni) 50 ml @ As Directed STK-MED ONCE IV ; Start 05/18/16 at 13:02; Stop 05/18/16 at 13:03; Status DC Fentanyl Citrate (Fentanyl 5ml Vial) 250 mcg STK-MED ONCE .ROUTE ; Start at 13:27; Stop 05/18/16 at 13:28; Status DC Phenylephrine HCl 1 mg STK-MED ONCE IV ; Start 05/18/16 at 13:58; Stop 05/18/16 at 13:59; Status DC Insulin Human Regular (Novolin R Vial) 10 unit 1X ONCE IV ; Start 05/18/16 at 14:15; Stop 05/18/16 at 14:16; Status DC Acetaminophen/ Hydrocodone Bitart (Lortab 7.5/325) 1 tab PRN Q3HRS PRN PO PAIN ; Start 05/18/16 at 15:45; Stop 05/21/16 at 10:18; Status DC Acetaminophen/ Hydrocodone Bitart (Lortab 10/325) 1 tab PRN Q3HRS PRN PO PAIN; Start 05/18/16 at 15:45 Tramadol HCl (Ultram) 50 mg PRN QID PRN PO PAIN; Start 05/18/16 at 15:45; Stop 05/21/16 at 10:18; Status DC Oxycodone/ Acetaminophen (Percocet 5/325) 1 tab PRN Q3HRS PRN PO PAIN; Start at 15:45 Oxycodone/ Acetaminophen (Percocet 7.5/ 325) 1 tab PRN Q3HRS PRN PO PAIN; Start 05/18/16 at 15:45 Tramadol HCl (Ultram) 100 mg PRN Q3HRS PRN PO PAIN; Start 05/18/16 at 15:45 Morphine Sulfate 2 mg PRN Q1HR PRN IV PAIN; Start 05/18/16 at 15:45; Stop at 10:40; Status DC Fentanyl Citrate (Fentanyl 2ml Vial) 25 mcg PRN Q1HR PRN IV PAIN Last administered on 05/20/16 21:37; Start 05/18/16 at 15:45; Stop 05/21/16 at 10:18; Status DC Diphenhydramine HCl (Benadryl) 25 mg PRN Q6HRS PRN IV ITCHING Last administered on 05/21/16 10:08; Start 05/18/16 at 15:45; Stop 05/21/16 at 10:43; Status DC Warfarin Sodium (Coumadin Per Pharmacy) 1 each PRN DAILY PRN MC SEE COMMENTS Last administered on 05/25/16 10:51; Start 05/18/16 at 15:45 Multivitamins/ Calcium (Thera M Plus) 1 tab DAILY PO Last administered on 07:52; Start 05/19/16 at 09:00 Senna/Docusate Sodium (Senna Plus) 1 tab DAILY PO Last administered on 07:52; Start 05/19/16 at 09:00 Ferrous Sulfate 325 mg 325 mg BIDWMEALS PO Last administered on 05/24/16 17:16 ; Start 05/18/16 at 17:00 Dextrose/Sodium Chloride (Iv D5% - 1/2 NS) 1,000 ml @ 100 mls/hr Q10H IV ; Start 05/18/16 at 15:31; Stop 05/19/16 at 07:48; Status DC Magnesium Hydroxide (Milk Of Magnesia) 2,400 mg 1X PRN PRN PO CONSTIPATION; Start 05/19/16 at 06:00; Stop 05/20/16 at 05:59; Status DC Bisacodyl (Dulcolax Supp) 10 mg 1X PRN PRN ME CONSTIPATION; Start 05/19/16 at 16 :00; Stop 05/20/16 at 15:59; Status DC Acetaminophen (Tylenol) 650 mg PRN Q4HRS PRN PO MILD PAIN / TEMP; Start at 15:45 Zolpidem Tartrate (Ambien) 5 mg PRN QHS PRN PO INSOMNIA, MAY REPEAT IN 1HR Last administered on 05/19/16 21:06; Start 05/18/16 at 15:45 Calcium Carbonate/ Glycine (Tums) 500 mg PRN QID PRN PO INDIGESTION; Start at 15:45 Morphine Sulfate 4 mg PRN Q1HR PRN IV PAIN Last administered on 05/21/16 08:11 ; Start 05/18/16 at 15:45; Stop 05/21/16 at 10:40; Status DC Morphine Sulfate 6 mg PRN Q1HR PRN IV PAIN Last administered on 05/20/16 20:04 ; Start 05/18/16 at 15:45; Stop 05/21/16 at 10:18; Status DC Morphine Sulfate 8 mg PRN Q1HR PRN IV PAIN; Start 05/18/16 at 15:45; Stop at 10:18; Status DC Sodium Chloride (Normal Saline Flush) 10 ml QSHIFT PRN IV AFTER MEDS AND BLOOD DRAWS; Start 05/18/16 at 15:45; Stop 05/21/16 at 07:32; Status DC Fentanyl Citrate (Fentanyl 2ml Vial) 50 mcg PRN Q1HR PRN IV PAIN Last administered on 05/21/16 10:09; Start 05/18/16 at 15:45; Stop 05/21/16 at 10:40; Status DC Prochlorperazine Edisylate (Compazine) 10 mg PRN Q4HRS PRN IV NAUSEA/VOMITING; Start 05/18/16 at 15:45 Dextrose 12.5 gm 12.5 gm PRN Q15MIN PRN IV SEE COMMENTS; Start 05/18/16 at 15: 45 Cefazolin Sodium/ Sodium Chloride (Ancef/Iv Sodium Chloride 0.9% 50ml) 50 ml @ 100 mls/hr Q6H IV Last administered on 05/19/16 05:00; Start 05/18/16 at 16:00 ; Stop 05/19/16 at 04:29; Status DC Warfarin Sodium (Coumadin) 5 mg 1X WARF ONCE PO ; Start 05/18/16 at 16:00; Stop 05/18/16 at 16:01; Status DC Lidocaine/Sodium Bicarbonate 20 ml 20 ml STK-MED ONCE IJ ; Start 05/18/16 at 16: 51; Stop 05/18/16 at 16:52; Status DC Heparin Sodium/ Sodium Chloride 500 ml @ As Directed STK-MED ONCE .ROUTE ; Start 05/18/16 at 16:51; Stop 05/18/16 at 16:52; Status DC Heparin Sodium (Porcine) 77344 unit 10,000 unit STK-MED ONCE .ROUTE ; Start at 16:52; Stop 05/18/16 at 16:53; Status DC Sodium Chloride (Iv Sodium Chloride 0.9% 1000ml Bag) 1,000 ml @ 1,000 mls/hr Q1H PRN IV hypotension; Start 05/18/16 at 17:23; Stop 05/18/16 at 23:22; Status DC Diphenhydramine HCl (Benadryl) 75 mg 1X PRN PRN IV ITCHING; Start 05/18/16 at 17:30; Stop 05/19/16 at 17:29; Status DC Info (PHARMACY MONITORING -- do not chart) 1 each PRN DAILY PRN MC SEE COMMENTS Last administered on 05/24/16 11:02; Start 05/18/16 at 17:30 Info (PHARMACY MONITORING -- do not chart) 1 each PRN DAILY PRN MC SEE COMMENTS ; Start 05/18/16 at 17:30; Status UNV Lidocaine/Sodium Bicarbonate (Buffered Lidocaine 1%) 3 ml 1X ONCE IJ Last administered on 05/18/16 17:34; Start 05/18/16 at 17:30; Stop 05/18/16 at 17:34 ; Status DC Heparin Sodium/ Sodium Chloride 60 unit 1X ONCE IV ; Start 05/18/16 at 17:30; Stop 05/18/16 at 17:34; Status DC Insulin Aspart (Novolog Vial) 10 unit 1X ONCE SQ ; Start 05/18/16 at 18:30; Stop 05/18/16 at 18:31; Status Cancel Insulin Human Regular 10 unit 10 unit 1X ONCE IV ; Start 05/18/16 at 19:00; Stop 05/18/16 at 19:01; Status DC Propofol (Diprivan) 100 ml @ 0 mls/hr CONT PRN IV . Last administered on 02:10; Start 05/18/16 at 19:00; Stop 05/21/16 at 07:32; Status DC Darbepoetin Jude (Aranesp) 60 mcg [id number] SQ ; Start 05/19/16 at 21:00 Diphenhydramine HCl (Benadryl) 50 mg 1X ONCE IM Last administered on 05/19/16 13:27; Start 05/19/16 at 13:15; Stop 05/19/16 at 13:16; Status DC Warfarin Sodium (Coumadin - No Dose Today) 1 each 1X WARF ONCE MC ; Start at 16:00; Stop 05/19/16 at 16:01; Status DC Hydralazine HCl (Apresoline) 10 mg PRN Q4HRS PRN IVP ELEVATED BP, SEE COMMENTS Last administered on 05/24/16 21:55; Start 05/19/16 at 16:15 Amlodipine Besylate (Norvasc) 10 mg 1X ONCE PO Last administered on 05/19/16 17:34; Start 05/19/16 at 17:30; Stop 05/19/16 at 17:31; Status DC Lisinopril (Prinivil) 20 mg 1X ONCE PO Last administered on 05/19/16 17:34; Start 05/19/16 at 17:30; Stop 05/19/16 at 17:31; Status DC Metoprolol Succinate (Toprol Xl) 200 mg 1X ONCE PO Last administered on 17:34; Start 05/19/16 at 17:30; Stop 05/19/16 at 17:31; Status DC Lidocaine HCl 2 ml 2 ml STK-MED ONCE .ROUTE ; Start 05/20/16 at 08:19; Stop at 08:20; Status DC Sodium Chloride (Iv Sodium Chloride 0.9% 1000ml Bag) 1,000 ml @ 1,000 mls/hr Q1H PRN IV hypotension; Start 05/20/16 at 09:24; Stop 05/20/16 at 15:23; Status DC Diphenhydramine HCl (Benadryl) 25 mg 1X PRN PRN IV ITCHING Last administered on 05/20/16 09:36; Start 05/20/16 at 09:30; Stop 05/21/16 at 07:32; Status DC Diphenhydramine HCl (Benadryl) 25 mg 1X PRN PRN IV ITCHING Last administered on 05/20/16 09:59; Start 05/20/16 at 09:30; Stop 05/21/16 at 07:32; Status DC Sodium Chloride (Normal Saline Flush) 10 ml 1X PRN PRN IV AP catheter pack; Start 05/20/16 at 09:30; Stop 05/21/16 at 09:29; Status DC Sodium Chloride (Normal Saline Flush) 10 ml 1X PRN PRN IV STOCK [employer]ER catheter pack; Start 05/20/16 at 09:30; Stop 05/21/16 at 09:29; Status DC Info (PHARMACY MONITORING -- do not chart) 1 each PRN DAILY PRN MC SEE COMMENTS ; Start 05/20/16 at 09:30; Stop 05/20/16 at 09:31; Status DC Info (PHARMACY MONITORING -- do not chart) 1 each PRN DAILY PRN MC SEE COMMENTS ; Start 05/20/16 at 09:30; Status Cancel Warfarin Sodium (Coumadin) 3 mg 1X WARF ONCE PO Last administered on 05/20/16 16:26; Start 05/20/16 at 16:00; Stop 05/20/16 at 16:01; Status DC Dextrose 25 gm STK-MED ONCE IV ; Start 05/19/16 at 12:00; Stop 05/20/16 at 16:10; Status DC Epinephrine HCl 1 mg STK-MED ONCE .ROUTE ; Start 05/19/16 at 12:00; Stop 05/20/16 at 16:10; Status DC Sodium Bicarbonate 50 meq STK-MED ONCE .ROUTE ; Start 05/19/16 at 12:00; Stop 05/20/16 at 16:10; Status DC Diphenhydramine HCl (Benadryl) 50 mg 1X ONCE IVP Last administered on 04:02; Start 05/21/16 at 04:00; Stop 05/21/16 at 10:18; Status DC Lidocaine HCl (Xylocaine-Mpf 1% Vial) 2 ml STK-MED ONCE .ROUTE ; Start 05/20/16 at 08:00; Stop 05/21/16 at 08:00; Status DC Fentanyl Citrate (Fentanyl 2ml Vial) 50 mcg PRN Q3HRS PRN IV PAIN Last administered on 05/25/16 11:15; Start 05/21/16 at 10:27 Morphine Sulfate 2 mg PRN Q3HRS PRN IV PAIN Last administered on 05/25/16 09:07 ; Start 05/21/16 at 10:27 Morphine Sulfate 4 mg PRN Q3HRS PRN IV PAIN Last administered on 05/24/16 17:16 ; Start 05/21/16 at 10:27 Diphenhydramine HCl (Benadryl) 50 mg PRN Q6HRS PRN IVP itching Last administered on 05/25/16 11:14; Start 05/21/16 at 10:30 Ondansetron HCl (Zofran) 4 mg PRN Q6HRS PRN IV NAUSEA/VOMITING Last administered on 05/23/16 07:47; Start 05/21/16 at 11:15 Warfarin Sodium 3 mg 3 mg 1X WARF ONCE PO Last administered on 05/21/16 15:08 ; Start 05/21/16 at 16:00; Stop 05/21/16 at 16:01; Status DC Sodium Chloride (Iv Sodium Chloride 0.9% 1000ml Bag) 1,000 ml @ 1,000 mls/hr Q1H PRN IV hypotension; Start 05/22/16 at 09:36; Stop 05/22/16 at 15:35; Status DC Diphenhydramine HCl (Benadryl) 25 mg 1X PRN PRN IV ITCHING Last administered on 05/22/16 16:52; Start 05/22/16 at 09:45; Stop 05/22/16 at 19:00; Status DC Sodium Chloride (Normal Saline Flush) 10 ml 1X PRN PRN IV AP catheter pack; Start 05/22/16 at 09:45; Stop 05/22/16 at 19:00; Status DC Sodium Chloride (Normal Saline Flush) 10 ml 1X PRN PRN IV STOCK BUYER catheter pack; Start 05/22/16 at 09:45; Stop 05/22/16 at 19:00; Status DC Info (PHARMACY MONITORING -- do not chart) 1 each PRN DAILY PRN MC SEE COMMENTS ; Start 05/22/16 at 09:45; Status UNV Info (PHARMACY MONITORING -- do not chart) 1 each PRN DAILY PRN MC SEE COMMENTS ; Start 05/22/16 at 09:45; Status UNV Warfarin Sodium (Coumadin) 2 mg 1X WARF ONCE PO Last administered on 05/22/16 17:48; Start 05/22/16 at 16:00; Stop 05/22/16 at 16:01; Status DC Warfarin Sodium 2 mg 2 mg 1X WARF ONCE PO Last administered on 05/23/16 15:56 ; Start 05/23/16 at 16:00; Stop 05/23/16 at 16:01; Status DC Ceftriaxone Sodium/Sodium Chloride (Rocephin/Iv Sodium Chloride 0.9% 50ml) 50 ml @ 100 mls/hr Q24H IV Last administered on 05/23/16 15:13; Start 05/23/16 at 15:00; Stop 05/24/16 at 12:53; Status DC Albuterol/ Ipratropium (Duoneb) 3 ml RTQID NEB Last administered on 05/25/16 11 :22; Start 05/23/16 at 16:00 Warfarin Sodium (Coumadin) 2 mg 1X WARF ONCE PO ; Start 05/24/16 at 16:00; Stop 05/24/16 at 16:01; Status DC Ondansetron HCl (Zofran) 4 mg PRN Q6HRS PRN IV Nausea; Start 05/25/16 at 07:00; Stop 05/25/16 at 18:00 Fentanyl Citrate (Fentanyl 2ml Vial) 25 mcg PRN Q5MIN PRN IV MILD PAIN; Start 05/25/16 at 07:00; Stop 05/25/16 at 18:00 Fentanyl Citrate (Fentanyl 2ml Vial) 50 mcg PRN Q5MIN PRN IV MODERATE PAIN; Start 05/25/16 at 07:00; Stop 05/25/16 at 18:00 Morphine Sulfate 1 mg 1 mg PRN Q10MIN PRN IV SEVERE PAIN; Start 05/25/16 at 07: 00; Stop 05/25/16 at 18:00 Lactated Ringer's (Iv Lactated Ringers) 1,000 ml @ 30 mls/hr Q24H IV ; Start at 07:00; Stop 05/25/16 at 18:59 Lidocaine HCl 2 ml 1X PRN PRN ID IV START; Start 05/25/16 at 07:00; Stop at 18:00 Hydromorphone HCl (Dilaudid) 0.5 mg PRN Q10MIN PRN IV SEVERE PAIN, Second choice; Start 05/25/16 at 07:00; Stop 05/25/16 at 18:00 Piperacillin Sod/ Tazobactam Sod 1 each 1 each PRN DAILY PRN MC SEE COMMENTS; Start 05/24/16 at 13:00 Piperacillin Sod/ Tazobactam Sod 2.25 gm/Sodium Chloride 50 ml @ 100 mls/hr Q6HRS IV Last administered on 05/25/16t 06:03; Start 05/24/16 at 13:00 Sodium Chloride (Iv Sodium Chloride 0.9% 1000ml Bag) 1,000 ml @ 1,000 mls/hr Q1H PRN IV hypotension; Start 05/24/16 at 13:14; Stop 05/24/16 at 19:13; Status DC Diphenhydramine HCl (Benadryl) 25 mg 1X PRN PRN IV ITCHING; Start 05/24/16 at 13 :15; Stop 05/24/16 at 14:09; Status DC Diphenhydramine HCl (Benadryl) 25 mg 1X PRN PRN IV ITCHING; Start 05/24/16 at 13 :15; Stop 05/24/16 at 14:09; Status DC Sodium Chloride (Normal Saline Flush) 10 ml 1X PRN PRN IV AP catheter pack; Start 05/24/16 at 13:15; Stop 05/25/16 at 13:14 Sodium Chloride 10 ml 10 ml 1X PRN PRN IV STOCK BUYER catheter pack; Start 05/24/16 at 13 :15; Stop 05/25/16 at 13:14 Sodium Chloride (Iv Sodium Chloride 0.9% 1000ml Bag) 1,000 ml @ 400 mls/hr Q2H30M PRN IV PATENCY; Start 05/24/16 at 13:14; Stop 05/25/16 at 01:13; Status DC Info (PHARMACY MONITORING -- do not chart) 1 each PRN DAILY PRN MC SEE COMMENTS ; Start 05/24/16 at 13:15; Status UNV Diphenhydramine HCl 75 mg 75 mg 1X ONCE IV Last administered on 05/24/16t 14:47 ; Start 05/24/16 at 14:15; Stop 05/24/16 at 14:18; Status DC Sodium Chloride (Iv Sodium Chloride 0.9% 1000ml Bag) 1,000 ml @ 1,000 mls/hr Q1H PRN IV hypotension; Start 05/25/16 at 08:17; Stop 05/25/16 at 14:16 Diphenhydramine HCl (Benadryl) 25 mg 1X PRN PRN IV ITCHING Last administered on 05/25/16t 09:00; Start 05/25/16 at 08:30; Stop 05/26/16 at 08:29 Diphenhydramine HCl (Benadryl) 25 mg 1X PRN PRN IV ITCHING; Start 05/25/16 at 08 :30; Stop 05/26/16 at 08:29 Info (PHARMACY MONITORING -- do not chart) 1 each PRN DAILY PRN MC SEE COMMENTS ; Start 05/25/16 at 08:30; Status UNV Warfarin Sodium (Coumadin - No Dose Today) 1 each 1X WARF ONCE MC ; Start at 16:00; Stop 05/25/16 at 16:01 Active Scripts Active Zofran Odt (Ondansetron) 4 Mg Tab.rapdis 1 Tab SL Q8HRS PRN Reported Percocet 7.5-325 Mg Tablet (Oxycodone/Acetaminophen) 1 Each Tablet 1 Tab PO PRN Q8HRS PRN Xanax (Alprazolam) 0.25 Mg Tablet 2 Mg PO TID PRN Metoprolol Succinate ( Xl ) (Metoprolol Succinate) 200 Mg Tab.er.24h 1 Tab PO DAILY Hydralazine Hcl 50 Mg Tablet 1 Tab PO TID Amlodipine Besylate 10 Mg Tablet 1 Tab PO DAILY Vitals/I & O Vital Sign - Last 24 Hours 05/24/16 05/24/16 05/24/16 05/24/16 13:29 14:59 17:16 17:57 Pulse Ox 93 93 93 93 O2 Delivery Nasal Cannula Nasal Cannula Nasal Cannula Nasal Cannula O2 Flow Rate 5.0 5.0 5.0 5.0 05/24/16 05/24/16 05/24/16 05/24/16 18:24 19:00 20:00 20:22 Temp 99.3 99.3 Pulse 122 Resp 20 18 B/P 192/94 Pulse Ox 93 93 O2 Delivery Nasal Cannula Nasal Cannula Nasal Cannula Nasal Cannula O2 Flow Rate 5.0 5.0 5.0 5.0 05/24/16 05/24/16 05/24/16 05/24/16 20:26 21:42 21:55 23:00 Temp 99.3 99.3 Pulse 122 118 119 Resp 18 B/P 192/94 161/83 162/88 Pulse Ox 93 90 O2 Delivery Nasal Cannula Nasal Cannula O2 Flow Rate 5.0 5.0 05/25/16 05/25/16 05/25/16 05/25/16 03:00 07:37 08:00 08:10 Temp 98.2 98.2 Pulse 103 Resp 18 B/P 161/40 Pulse Ox 94 94 94 O2 Delivery Nasal Cannula Nasal Cannula Nasal Cannula Nasal Cannula O2 Flow Rate 5.0 5.0 5.0 5.0 05/25/16 05/25/16 05/25/16 05/25/16 09:00 09:07 09:40 10:08 Pulse 105 105 B/P 157/96 157/96 Pulse Ox 94 99 O2 Delivery Nasal Cannula Nasal Cannula O2 Flow Rate 5.0 5.0 05/25/16 05/25/16 05/25/16 11:13 11:15 11:27 Pulse 105 B/P 157/96 Pulse Ox 94 99 O2 Delivery Nasal Cannula Nasal Cannula O2 Flow Rate 5.0 5.0 Intake and Output 05/24/16 05/24/16 05/25/16 15:00 23:00 07:00 Intake Total 176 ml 120 ml Output Total 0 ml 0 ml Balance 176 ml 120 ml FABIOLA ZHANG MD May 25, 2016 11:44
[2016-05-25] MEDS: ONDANSETRON PF 4 MG/2 ML VIAL. IV PRN (12:33)
[2016-05-25] MEDS ORDERED: DIPHENHYDRAMINE 50 MG/ML VIAL IVP ONE (12:45)
[2016-05-25] MEDS: MORPHINE SULFATE 4 MG/ML DISP.SYRIN. IV PRN ×4 (13:00→23:40)
[2016-05-25] MEDS: IV RINGERS,LACTATED 1000ML 1,000 ML IV SCH (13:00)
--- NOTE | 2016-05-25 16:02 | RAD ---
EXAM: Chest one view. HISTORY: Respiratory failure. COMPARISON: 05/24/2016. FINDINGS: A frontal view of the chest is obtained. Opacities in the right base indicating combination of a small loculated pleural effusion tracking into the major fissure along with atelectasis or scarring. There is lesser stable scarring in the left base. There is no pneumothorax. The heart is moderately enlarged. There is a stent in the left brachiocephalic vein. Chronic bilateral rib fractures are noted. Both distal clavicles appear resorbed. IMPRESSION: 1. Improved aeration of the right base about a loculated right pleural effusion. 2. Moderate cardiomegaly.
--- NOTE | 2016-05-25 21:21 | EKG ---
[facility] [address] [place] [id number] Test Date: 2016-05-25 Test Time: 21:12:56 Pat Name: JUNE ANTHONY Department: Room: 444 1 Gender: F Homeopathic Doctor: LALO : 1990 Requested By: KINGSLEY EVERETT Order Number: [id number] Reading MD: Measurements Intervals [place] Rate: 110 P: 51 HI: 144 QRS: 58 QRSD: 80 T: 49 QT: 330 QTc: 452 Interpretive Statements SINUS TACHYCARDIA LEFT ATRIAL ABNORMALITY ABNORMAL ECG RI6.01 Unconfirmed report Compared to ECG 05/10/2016 12:45:11 Atrial abnormality now present
[2016-05-26] VITALS (13 sets, daily range): BP systolic 127–152; BP diastolic 88–105
[2016-05-26] MEDS: DIPHENHYDRAMINE 50 MG/ML VIAL IVP PRN ×4 (00:42→23:14)
[2016-05-26] MEDS: FENTANYL PF 100 MCG/2 ML VIAL. IV PRN ×3 (01:04→18:23)
[2016-05-26] MEDS: MORPHINE SULFATE 4 MG/ML DISP.SYRIN. IV PRN ×3 (02:45→11:33)
[2016-05-26] MEDS: PIPERACILLIN/TAZOBACTAM 2.25 GM in IV NORMAL SALINE 50ML 50 ML IV SCH ×3 (05:54→18:22)
[2016-05-26] MEDS: SENNOSIDES/DOCUSATE 8.6/50MG TABLET. PO SCH (07:18)
[2016-05-26] MEDS: POLYETHYLENE GLYCOL 3350 17 GM PACKET. PO SCH ×2 (07:18→20:46)
[2016-05-26] MEDS: IPRATRPIUM/ALBUTEROL 0.5/2.5MG 3 ML NEBU. NEB SCH ×2 (07:34→11:18)
[2016-05-26] MEDS: MULTIVITAMIN with MINERAL TABLET. PO SCH (08:39)
[2016-05-26] MEDS: FERROUS SULFATE 325 MG TABLET PO SCH ×2 (08:39→17:00)
[2016-05-26] MEDS: AMLODIPINE BESYLATE 10 MG TABLET PO SCH (08:39)
[2016-05-26] MEDS: LISINOPRIL 20 MG TABLET PO SCH (08:40)
[2016-05-26] MEDS: HYDRALAZINE 50 MG TABLET PO SCH ×3 (08:40→20:46)
[2016-05-26] MEDS: METOPROLOL SUCC 24HR ER 100 MG TAB.ER.24H. PO SCH (08:40)
[2016-05-26] MEDS: LORAZEPAM 2 MG/ML VIAL IV PRN (08:42)
[2016-05-26] MEDS ORDERED: LIDOCAINE/PRILOCAINE TOPICAL CREAM 5GM TUBE. TP ONE (08:45)
[2016-05-26] MEDS ORDERED: 0.9 % SODIUM CHLORIDE 10 ML DISP.SYRIN. IV PRN (08:45)
[2016-05-26] MEDS ORDERED: LIDOCAINE 1% PF 2 ML VIAL. ID PRN (08:45)
[2016-05-26] MEDS: IV RINGERS,LACTATED 1000ML 1,000 ML IV SCH (09:00)
[2016-05-26 09:54] LABS: CALCIUM 9.3 mg/dL (8.5-10.1); CREATININE 3.5 mg/dL (0.6-1.0); GFR 15.8; POTASSIUM 4.7 mmol/L (3.5-5.1)
[2016-05-26] MEDS ORDERED: GLYCOPYRROLATE 1 MG/5 ML VIAL. ONE (10:00)
[2016-05-26] MEDS ORDERED: PHENYLEPHRINE in 0.9% NACL PF 1 MG/10 ML DISP.SYRIN. IV ONE (10:00)
[2016-05-26 10:01] LABS: INR 1.3 (0.8-1.1); PROTHROMBIN TIME PATIENT 15.1 SEC (11.7-14.0)
[2016-05-26 10:05] LABS: BASO # 0.1 x10^3/uL (0.0-0.2); BASO % 1 % (0-3); EOS % 5 % (0-3); HEMATOCRIT 31.7 % (36.0-47.0); HEMOGLOBIN 10.5 g/dL (12.0-15.5); LYMPH # 0.7 x10^3/uL (1.0-4.8); LYMPH % 9 % (24-48); MEAN CORPUSCULAR HEMOGLOBIN 31 pg (25-35); MEAN CORPUSCULAR HGB CONC 33 g/dL (31-37); MEAN CORPUSCULAR VOLUME 93 fL (79-100); MONO % 7 % (0-9); NEUT % 79 % (31-73); PLATELET COUNT 273 x10^3/uL (140-400); RED BLOOD COUNT 3.41 x10^6/uL (3.50-5.40); RED CELL DISTRIBUTION WIDTH 15.7 % (11.5-14.5); WHITE BLOOD COUNT 8.5 x10^3/uL (4.0-11.0)
[2016-05-26] MEDS ORDERED: PROPOFOL 20 ML IV ONE (11:54)
[2016-05-26] MEDS ORDERED: ONDANSETRON PF 4 MG/2 ML VIAL. ONE (11:54)
[2016-05-26] MEDS ORDERED: LIDOCAINE 2% 100 MG/5 ML DISP.SYRIN. ONE (11:54)
[2016-05-26] MEDS ORDERED: IODIXANOL 320 MG/ML 100 ML VIAL. ONE (12:02)
[2016-05-26] MEDS ORDERED: LIDOCAINE 1% / SOD BICARB 8.4% 20 ML VIAL. IJ ONE ×2 (12:02→13:00)
[2016-05-26] MEDS ORDERED: ALBUTEROL SULFATE 2.5 MG/3 ML NEBU. NEB PRN (12:15)
[2016-05-26] MEDS ORDERED: ALTEPLASE 2 MG VIAL IV ONE (12:30)
[2016-05-26] MEDS ORDERED: IODIXANOL 320 MG/ML 100 ML VIAL. IART ONE (13:00)
[2016-05-26] MEDS ORDERED: CONTRAST GIVEN MC PRN (13:00)
[2016-05-26] MEDS ORDERED: HEPARIN for IV BOLUS 10,000 UNIT/10 ML VIAL. ONE (13:27)
[2016-05-26] MEDS ORDERED: HEPARIN for IV BOLUS 10,000 UNIT/10 ML VIAL. IV ONE (13:30)
--- NOTE | 2016-05-26 13:41 | PDOC ---
PROGRESS NOTES Chief Complaint Chief Complaint 0. S/P code blue after hip replacement with rib fx 1. Abdominal pain; chronic, unclear etiology 2. Narcotic dependence. 3. Hx osteomyelitis, and replaced hip hardware. 4. elevated Alk Phos; isolated. 5. ESRD: HD tts 6. Anemia; severe, 2/2 ESRD. 7. acute resp failure with fluid overloaded with ESRD and possible PNA 8. left ARM AVF thrombosis 9. non compliance, wants to go home if not getting pain meds 10.HTN with hypotention now PLAN: - PRN duonebs breathing treatment - cont supplemental O2 - awaiting thrombectomy of the L arm today - Pulmonology following, appreciate input; CXR showing worsening moderate bibasilar atelectasis/infiltrate - PTOT - cont narcotics for hip and rib pain - cont IV Zofran for nausea - cont Benadryl for itchiness add zosyn , repeated cxr as per renal, may need HD daily for now , now has left femoral HD cath. hold HTN meds if low BP dc to select if ok with specialist 2u PRBC transfusion 05/25 NEED to get PICC line given poor iv access. ID consult to make sure. History of Present Illness History of Present Illness Patient lying down in bed when evaluated this AM. Pt looks mild lethargic, and fells asleep when talking, but saying she had insomnia. she refused PTOT, REFUSE po pain meds, requires iv pain meds. Hb 5.7 up to 10 after 2u prbc 05/26, pt refused labs ESRD ON HD tts. saying cough a little bit daily, still require 5L NC Vitals Vitals Vital Signs Date Time Temp Pulse Resp B/P Pulse Ox O2 Delivery O2 Flow Rate FiO2 05/26/16 12:05 98 Nasal Cannula 4.0 05/26/16 11:00 98.7 106 16 151/104 98.7 Physical Exam General: Alert, Oriented X3, Cooperative Heart: Regular rate, Normal S1, Normal S2, No murmurs, Gallops Lungs: Other (few crackles post) Abdomen: Normal bowel sounds, Soft, No tenderness, No hepatosplenomegaly, No masses Extremities: No edema Skin: No rashes Labs LABS Laboratory Tests Test 05/26/16 09:30 White Blood Count 8.5x10^3/uL (4.0-11.0) Red Blood Count 3.41x10^6/uL (3.50-5.40) Hemoglobin 10.5g/dL (12.0-15.5) Hematocrit 31.7% (36.0-47.0) Mean Corpuscular Volume 93fL (79-100) Mean Corpuscular Hemoglobin 31pg (25-35) Mean Corpuscular Hemoglobin Concent 33g/dL (31-37) Red Cell Distribution Width 15.7% (11.5-14.5) Platelet Count 273x10^3/uL (140-400) Neutrophils (%) (Auto) 79% (31-73) Lymphocytes (%) (Auto) 9% (24-48) Monocytes (%) (Auto) 7% (0-9) Eosinophils (%) (Auto) 5% (0-3) Basophils (%) (Auto) 1% (0-3) Neutrophils # (Auto) 6.7x10^3uL (1.8-7.7) Lymphocytes # (Auto) 0.7x10^3/uL (1.0-4.8) Monocytes # (Auto) 0.6x10^3/uL (0.0-1.1) Eosinophils # (Auto) 0.4x10^3/uL (0.0-0.7) Basophils # (Auto) 0.1x10^3/uL (0.0-0.2) Prothrombin Time 15.1SEC (11.7-14.0) Prothromb Time International Ratio 1.3 (0.8-1.1) Sodium Level 141mmol/L (136-145) Potassium Level 4.7mmol/L (3.5-5.1) Chloride Level 102mmol/L (98-107) Carbon Dioxide Level 30mmol/L (21-32) Anion Gap 9 (6-14) Blood Urea Nitrogen 25mg/dL (7-20) Creatinine 3.5mg/dL (0.6-1.0) Estimated GFR (Cockcroft-Gault) 15.8 Glucose Level 100mg/dL (70-99) Calcium Level 9.3mg/dL (8.5-10.1) Review of Systems Review of Systems no fever, chills, sob or chest pain Assessment and Plan Assessmemt and Plan Problems Medical Problems: (1) Abdominal pain Status: Acute (2) Hip fracture, right Status: Acute (3) Infection and inflammatory reaction due to internal right hip prosthesis, subsequent encounter Status: Acute (4) Intractable abdominal pain Status: Acute (5) Nausea & vomiting Status: Acute Problems: Comment Review of Relevant I have reviewed the following items lynnette (where applicable) has been applied. Labs Laboratory Tests Test 05/25/16 08:10 05/26/16 09:30 White Blood Count 8.7x10^3/uL (4.0-11.0) 8.5x10^3/uL (4.0-11.0) Red Blood Count 1.88x10^6/uL (3.50-5.40) 3.41x10^6/uL (3.50-5.40) Hemoglobin 5.9g/dL (12.0-15.5) 10.5g/dL (12.0-15.5) Hematocrit 18.1% (36.0-47.0) 31.7% (36.0-47.0) Mean Corpuscular Volume 96fL (79-100) 93fL (79-100) Mean Corpuscular Hemoglobin 31pg (25-35) 31pg (25-35) Mean Corpuscular Hemoglobin Concent 32g/dL (31-37) 33g/dL (31-37) Red Cell Distribution Width 17.3% (11.5-14.5) 15.7% (11.5-14.5) Platelet Count 246x10^3/uL (140-400) 273x10^3/uL (140-400) Neutrophils (%) (Auto) 78% (31-73) 79% (31-73) Lymphocytes (%) (Auto) 9% (24-48) 9% (24-48) Monocytes (%) (Auto) 9% (0-9) 7% (0-9) Eosinophils (%) (Auto) 4% (0-3) 5% (0-3) Basophils (%) (Auto) 1% (0-3) 1% (0-3) Neutrophils # (Auto) 6.8x10^3uL (1.8-7.7) 6.7x10^3uL (1.8-7.7) Lymphocytes # (Auto) 0.8x10^3/uL (1.0-4.8) 0.7x10^3/uL (1.0-4.8) Monocytes # (Auto) 0.7x10^3/uL (0.0-1.1) 0.6x10^3/uL (0.0-1.1) Eosinophils # (Auto) 0.4x10^3/uL (0.0-0.7) 0.4x10^3/uL (0.0-0.7) Basophils # (Auto) 0.0x10^3/uL (0.0-0.2) 0.1x10^3/uL (0.0-0.2) Prothrombin Time 18.0SEC (11.7-14.0) 15.1SEC (11.7-14.0) Prothromb Time International Ratio 1.6 (0.8-1.1) 1.3 (0.8-1.1) Sodium Level 139mmol/L (136-145) 141mmol/L (136-145) Potassium Level 4.6mmol/L (3.5-5.1) 4.7mmol/L (3.5-5.1) Chloride Level 101mmol/L (98-107) 102mmol/L (98-107) Carbon Dioxide Level 30mmol/L (21-32) 30mmol/L (21-32) Anion Gap 8 (6-14) 9 (6-14) Blood Urea Nitrogen 24mg/dL (7-20) 25mg/dL (7-20) Creatinine 4.2mg/dL (0.6-1.0) 3.5mg/dL (0.6-1.0) Estimated GFR (Cockcroft-Gault) 12.8 15.8 Glucose Level 99mg/dL (70-99) 100mg/dL (70-99) Calcium Level 8.8mg/dL (8.5-10.1) 9.3mg/dL (8.5-10.1) Laboratory Tests Test 05/26/16 09:30 White Blood Count 8.5x10^3/uL (4.0-11.0) Red Blood Count 3.41x10^6/uL (3.50-5.40) Hemoglobin 10.5g/dL (12.0-15.5) Hematocrit 31.7% (36.0-47.0) Mean Corpuscular Volume 93fL (79-100) Mean Corpuscular Hemoglobin 31pg (25-35) Mean Corpuscular Hemoglobin Concent 33g/dL (31-37) Red Cell Distribution Width 15.7% (11.5-14.5) Platelet Count 273x10^3/uL (140-400) Neutrophils (%) (Auto) 79% (31-73) Lymphocytes (%) (Auto) 9% (24-48) Monocytes (%) (Auto) 7% (0-9) Eosinophils (%) (Auto) 5% (0-3) Basophils (%) (Auto) 1% (0-3) Neutrophils # (Auto) 6.7x10^3uL (1.8-7.7) Lymphocytes # (Auto) 0.7x10^3/uL (1.0-4.8) Monocytes # (Auto) 0.6x10^3/uL (0.0-1.1) Eosinophils # (Auto) 0.4x10^3/uL (0.0-0.7) Basophils # (Auto) 0.1x10^3/uL (0.0-0.2) Prothrombin Time 15.1SEC (11.7-14.0) Prothromb Time International Ratio 1.3 (0.8-1.1) Sodium Level 141mmol/L (136-145) Potassium Level 4.7mmol/L (3.5-5.1) Chloride Level 102mmol/L (98-107) Carbon Dioxide Level 30mmol/L (21-32) Anion Gap 9 (6-14) Blood Urea Nitrogen 25mg/dL (7-20) Creatinine 3.5mg/dL (0.6-1.0) Estimated GFR (Cockcroft-Gault) 15.8 Glucose Level 100mg/dL (70-99) Calcium Level 9.3mg/dL (8.5-10.1) Medications Current Medications Ondansetron HCl (Zofran) 4 mg 1X ONCE IV Last administered on 05/15/16t 19:17 ; Start 05/15/16 at 19:00; Stop 05/15/16 at 19:01; Status DC Morphine Sulfate 4 mg 1X ONCE IV Last administered on 05/15/16 19:19; Start 05/15/16 at 19:00; Stop 05/15/16 at 19:01; Status DC Hydralazine HCl (Apresoline) 10 mg 1X ONCE IVP Last administered on 05/15/16 19:21; Start 05/15/16 at 19:00; Stop 05/15/16 at 19:01; Status DC Lorazepam (Ativan) 1 mg 1X ONCE PO Last administered on 05/15/16 20:04; Start 05/15/16 at 19:45; Stop 05/15/16 at 19:46; Status DC Alprazolam (Xanax) 2 mg PRN TID PRN PO ANXIETY / AGITATION; Start 05/15/16 at 20:45; Stop 05/15/16 at 20:47; Status DC Amlodipine Besylate (Norvasc) 10 mg DAILY PO Last administered on 05/26/16 08: 39; Start 05/16/16 at 09:00 Hydralazine HCl (Apresoline) 50 mg TID PO Last administered on 05/26/16 08:40; Start 05/16/16 at 09:00 Ondansetron HCl (Zofran Odt) 4 mg PRN Q8HRS PRN PO NAUSEA; Start 05/15/16 at 20 :45; Stop 05/21/16 at 10:18; Status DC Oxycodone/ Acetaminophen (Percocet 7.5/ 325) 1 tab PRN Q8HRS PRN PO PAIN; Start 05/15/16 at 20:45; Status Cancel Metoprolol Succinate (Toprol Xl) 200 mg DAILY PO Last administered on 05/26/16 08:40; Start 05/16/16 at 09:00 Alprazolam (Xanax) 2 mg PRN TID PRN PO ANXIETY / AGITATION Last administered on 05/25/16 12:33; Start 05/15/16 at 20:47 Morphine Sulfate 4 mg 1X ONCE IV Last administered on 05/15/16 21:13; Start 05/15/16 at 21:00; Stop 05/15/16 at 21:01; Status DC Ondansetron HCl (Zofran) 4 mg 1X ONCE IV Last administered on 05/15/16 21:08 ; Start 05/15/16 at 21:00; Stop 05/15/16 at 21:01; Status DC Labetalol HCl (Normodyne) 20 mg PRN Q6HRS PRN IVP HYPERTENSION, SEE COMMENTS Last administered on 05/25/16 10:08; Start 05/15/16 at 23:30 Lorazepam (Ativan) 1 mg PRN Q6HRS PRN IV ANXIETY / AGITATION Last administered on 05/16/16 20:22; Start 05/15/16 at 23:30; Stop 05/16/16 at 22:44; Status DC Morphine Sulfate 2 mg PRN Q2HR PRN IV PAIN Last administered on 05/16/16 10:52 ; Start 05/15/16 at 23:30; Stop 05/16/16 at 11:42; Status DC Morphine Sulfate 4 mg PRN Q2HR PRN IV PAIN; Start 05/15/16 at 23:30; Stop 05/16 at 11:42; Status DC Diphenhydramine HCl (Benadryl) 50 mg PRN Q6HRS PRN IVP ITCHING Last administered on 05/16/16 20:23; Start 05/15/16 at 23:30; Stop 05/16/16 at 22:44 ; Status DC Morphine Sulfate 1 mg PRN Q2HR PRN IV PAIN Last administered on 05/17/16 18:38 ; Start 05/16/16 at 11:45; Stop 05/21/16 at 10:18; Status DC Diphenhydramine HCl (Benadryl) 25 mg PRN Q8HRS PRN IVP ITCHING Last administered on 05/18/16 04:54; Start 05/16/16 at 23:30; Stop 05/18/16 at 15:51 ; Status DC Lorazepam (Ativan) 0.5 mg PRN Q8HRS PRN IV ANXIETY / AGITATION Last administered on 05/26/16 08:42; Start 05/16/16 at 23:30 Metoclopramide HCl (Reglan) 5 mg PRN Q8HRS PRN IV NAUSEA/VOMITING Last administered on 05/22/16 19:45; Start 05/16/16 at 22:45 Polyethylene Glycol (miraLAX PACKET) 17 gm BID PO ; Start 05/17/16 at 09:00 Lidocaine HCl 2 ml 2 ml STK-MED ONCE .ROUTE ; Start 05/17/16 at 11:20; Stop at 11:21; Status DC Sodium Chloride (Iv Sodium Chloride 0.9% 1000ml Bag) 1,000 ml @ 1,000 mls/hr Q1H PRN IV hypotension; Start 05/17/16 at 12:42; Stop 05/17/16 at 18:41; Status DC Diphenhydramine HCl (Benadryl) 25 mg 1X PRN PRN IV ITCHING; Start 05/17/16 at 12:45; Stop 05/18/16 at 12:44; Status DC Diphenhydramine HCl (Benadryl) 25 mg 1X PRN PRN IV ITCHING; Start 05/17/16 at 12:45; Stop 05/18/16 at 12:44; Status DC Info (PHARMACY MONITORING -- do not chart) 1 each PRN DAILY PRN MC SEE COMMENTS ; Start 05/17/16 at 12:45; Status UNV Info 1 each 1 each PRN DAILY PRN MC SEE COMMENTS; Start 05/17/16 at 12:45; Status UNV Morphine Sulfate/ Ketorolac Tromethamine/ Ropivacaine/ Epinephrine HCl/ Sodium Chloride (Morphine 5mg Syringe/Toradol/ Naropin 0.5%/ Adrenalin/Iv Sodium Chloride 0.9% 100ml) 100.5 ml @ 100.5 mls/ hr 1X PERIOP ONCE INT ART Last administered on 05/18/16 08:20; Start 05/18/16 at 06:00; Stop 05/18/16 at 06:59 ; Status DC Ondansetron HCl (Zofran) 4 mg PRN Q6HRS PRN IV Nausea; Start 05/18/16 at 07:00 ; Stop 05/19/16 at 06:59; Status DC Fentanyl Citrate (Fentanyl 2ml Vial) 25 mcg PRN Q5MIN PRN IV MILD PAIN Last administered on 05/18/16 16:42; Start 05/18/16 at 07:00; Stop 05/19/16 at 06:59 ; Status DC Fentanyl Citrate (Fentanyl 2ml Vial) 50 mcg PRN Q5MIN PRN IV MODERATE PAIN Last administered on 05/19/16 02:10; Start 05/18/16 at 07:00; Stop 05/19/16 at 06 :59; Status DC Morphine Sulfate 1 mg PRN Q10MIN PRN IV SEVERE PAIN; Start 05/18/16 at 07:00; Stop 05/19/16 at 06:59; Status DC Lidocaine HCl 2 ml 1X PRN PRN ID IV START; Start 05/18/16 at 07:00; Stop at 06:59; Status DC Hydromorphone HCl (Dilaudid) 0.5 mg PRN Q10MIN PRN IV SEVERE PAIN, Second choice Last administered on 05/19/16 00:53; Start 05/18/16 at 07:00; Stop at 06:59; Status DC Prochlorperazine Edisylate 5 mg 5 mg PACU PRN PRN IV NAUSEA; Start 05/18/16 at 07:00; Stop 05/19/16 at 06:59; Status DC Sodium Chloride (Iv Sodium Chloride 0.9% 1000ml Bag) 1,000 ml @ 30 mls/hr Q24H IV ; Start 05/18/16 at 07:00; Stop 05/19/16 at 07:48; Status DC Warfarin Sodium (Coumadin) 5 mg 1X ONCE PO Last administered on 05/17/16 16: 31; Start 05/17/16 at 17:00; Stop 05/17/16 at 17:01; Status DC Acetaminophen/ Hydrocodone Bitart (Lortab 7.5/325) 2 tab 1X ONCE PO ; Start at 05:30; Stop 05/18/16 at 05:31; Status Cancel Acetaminophen/ Hydrocodone Bitart 2 tab 2 tab 1X PREOP PRN PO PRIOR TO PROCEDURE; Start 05/18/16 at 06:00; Stop 05/18/16 at 18:00; Status DC Cefazolin Sodium/ Dextrose 50 ml @ 100 mls/hr 1X PREOP PRN IV PRIOR TO PROCEDURE; Start 05/18/16 at 06:00; Stop 05/18/16 at 18:00; Status DC Morphine Sulfate/ Ketorolac Tromethamine/ Ropivacaine/ Epinephrine HCl/ Sodium Chloride (Morphine 5mg Syringe/Toradol/ Naropin 0.5%/ Adrenalin/Iv Sodium Chloride 0.9% 50ml) 100.5 ml @ 100.5 mls/ hr 1X PERIOP ONCE INT ART ; Start at 06:00; Stop 05/18/16 at 06:59; Status Cancel Dexamethasone Sodium Phosphate (Decadron) 20 mg STK-MED ONCE .ROUTE ; Start at 06:57; Stop 05/18/16 at 06:58; Status DC Ondansetron HCl 4 mg 4 mg STK-MED ONCE .ROUTE ; Start 05/18/16 at 06:57; Stop at 06:58; Status DC Propofol (Diprivan) 20 ml @ As Directed STK-MED ONCE IV ; Start 05/18/16 at 06: 57; Stop 05/18/16 at 06:58; Status DC Lidocaine HCl 100 mg STK-MED ONCE .ROUTE ; Start 05/18/16 at 06:57; Stop at 06:58; Status DC Fentanyl Citrate (Fentanyl 5ml Vial) 250 mcg STK-MED ONCE .ROUTE ; Start at 06:57; Stop 05/18/16 at 06:58; Status DC Midazolam HCl (Versed) 2 mg STK-MED ONCE .ROUTE ; Start 05/18/16 at 06:58; Stop 05/18/16 at 06:59; Status DC Rocuronium [place] 50 mg 50 mg STK-MED ONCE .ROUTE ; Start 05/18/16 at 06:58; Stop 05/18/16 at 06:59; Status DC Acetaminophen 100 ml @ As Directed STK-MED ONCE IV ; Start 05/18/16 at 07:13; Stop 05/18/16 at 07:14; Status DC Sodium Chloride 500 ml @ 30 mls/hr [id number] IV Last administered on 05/18/16t 07:45; Start 05/18/16 at 07:45; Stop 05/19/16 at 07:48; Status DC Cefazolin Sodium (Ancef 1gm Ivpb For Omni) 50 ml @ As Directed STK-MED ONCE IV ; Start 05/18/16 at 07:45; Stop 05/18/16 at 07:46; Status DC Fentanyl Citrate (Fentanyl 5ml Vial) 250 mcg STK-MED ONCE .ROUTE ; Start at 08:27; Stop 05/18/16 at 08:28; Status DC Rocuronium [place] (Zemuron) 50 mg STK-MED ONCE .ROUTE ; Start 05/18/16 at 08:27 ; Stop 05/18/16 at 08:28; Status DC Morphine Sulfate 5 mg 5 mg STK-MED ONCE .ROUTE ; Start 05/18/16 at 08:59; Stop 05/18/16 at 09:00; Status DC Cefazolin Sodium (Ancef 1gm Ivpb For Omni) 50 ml @ 100 mls/hr 1X PREOP PRN IV PER PROTOCOL Last administered on 05/18/16 08:06; Start 05/18/16 at 09:30; Stop 05/19/16 at 09:29; Status DC Lisinopril (Prinivil) 20 mg DAILY PO Last administered on 05/26/16 08:40; Start 05/18/16 at 11:30 Albuterol Sulfate (Ventolin Neb Soln) 2.5 mg STK-MED ONCE .ROUTE ; Start at 11:24; Stop 05/18/16 at 11:25; Status DC Morphine Sulfate 10 mg STK-MED ONCE .ROUTE ; Start 05/18/16 at 11:55; Stop 05/18 at 11:56; Status DC Cefazolin Sodium/ Dextrose 2 gm 2 gm STK-MED ONCE IV ; Start 05/18/16 at 07:30; Stop 05/18/16 at 12:41; Status DC Cefazolin Sodium (Ancef 1gm Ivpb For Omni) 50 ml @ As Directed STK-MED ONCE IV ; Start 05/18/16 at 13:02; Stop 05/18/16 at 13:03; Status DC Fentanyl Citrate (Fentanyl 5ml Vial) 250 mcg STK-MED ONCE .ROUTE ; Start at 13:27; Stop 05/18/16 at 13:28; Status DC Phenylephrine HCl 1 mg STK-MED ONCE IV ; Start 05/18/16 at 13:58; Stop 05/18/16 at 13:59; Status DC Insulin Human Regular (Novolin R Vial) 10 unit 1X ONCE IV ; Start 05/18/16 at 14:15; Stop 05/18/16 at 14:16; Status DC Acetaminophen/ Hydrocodone Bitart (Lortab 7.5/325) 1 tab PRN Q3HRS PRN PO PAIN ; Start 05/18/16 at 15:45; Stop 05/21/16 at 10:18; Status DC Acetaminophen/ Hydrocodone Bitart (Lortab 10/325) 1 tab PRN Q3HRS PRN PO PAIN; Start 05/18/16 at 15:45 Tramadol HCl (Ultram) 50 mg PRN QID PRN PO PAIN; Start 05/18/16 at 15:45; Stop 05/21/16 at 10:18; Status DC Oxycodone/ Acetaminophen (Percocet 5/325) 1 tab PRN Q3HRS PRN PO PAIN; Start at 15:45 Oxycodone/ Acetaminophen (Percocet 7.5/ 325) 1 tab PRN Q3HRS PRN PO PAIN; Start 05/18/16 at 15:45 Tramadol HCl (Ultram) 100 mg PRN Q3HRS PRN PO PAIN; Start 05/18/16 at 15:45 Morphine Sulfate 2 mg PRN Q1HR PRN IV PAIN; Start 05/18/16 at 15:45; Stop at 10:40; Status DC Fentanyl Citrate (Fentanyl 2ml Vial) 25 mcg PRN Q1HR PRN IV PAIN Last administered on 05/20/16 21:37; Start 05/18/16 at 15:45; Stop 05/21/16 at 10:18; Status DC Diphenhydramine HCl (Benadryl) 25 mg PRN Q6HRS PRN IV ITCHING Last administered on 05/21/16 10:08; Start 05/18/16 at 15:45; Stop 05/21/16 at 10:43; Status DC Warfarin Sodium (Coumadin Per Pharmacy) 1 each PRN DAILY PRN MC SEE COMMENTS Last administered on 05/26/16 10:49; Start 05/18/16 at 15:45 Multivitamins/ Calcium (Thera M Plus) 1 tab DAILY PO Last administered on 08:39; Start 05/19/16 at 09:00 Senna/Docusate Sodium (Senna Plus) 1 tab DAILY PO Last administered on 07:52; Start 05/19/16 at 09:00 Ferrous Sulfate 325 mg 325 mg BIDWMEALS PO Last administered on 05/26/16 08:39 ; Start 05/18/16 at 17:00 Dextrose/Sodium Chloride (Iv D5% - / NS) 1,000 ml @ 100 mls/hr Q10H IV ; Start 05/18/16 at 15:31; Stop 05/19/16 at 07:48; Status DC Magnesium Hydroxide (Milk Of Magnesia) 2,400 mg 1X PRN PRN PO CONSTIPATION; Start 05/19/16 at 06:00; Stop 05/20/16 at 05:59; Status DC Bisacodyl (Dulcolax Supp) [address] CONSTIPATION; Start 05/19/16 at 16 :00; Stop 05/20/16 at 15:59; Status DC Acetaminophen (Tylenol) 650 mg PRN Q4HRS PRN PO MILD PAIN / TEMP Last administered on 05/25/16 12:33; Start 05/18/16 at 15:45 Zolpidem Tartrate (Ambien) 5 mg PRN QHS PRN PO INSOMNIA, MAY REPEAT IN 1HR Last administered on 05/19/16 21:06; Start 05/18/16 at 15:45 Calcium Carbonate/ Glycine (Tums) 500 mg PRN QID PRN PO INDIGESTION; Start at 15:45 Morphine Sulfate 4 mg PRN Q1HR PRN IV PAIN Last administered on 05/21/16 08:11 ; Start 05/18/16 at 15:45; Stop 05/21/16 at 10:40; Status DC Morphine Sulfate 6 mg PRN Q1HR PRN IV PAIN Last administered on 05/20/16 20:04 ; Start 05/18/16 at 15:45; Stop 05/21/16 at 10:18; Status DC Morphine Sulfate 8 mg PRN Q1HR PRN IV PAIN; Start 05/18/16 at 15:45; Stop at 10:18; Status DC Sodium Chloride (Normal Saline Flush) 10 ml QSHIFT PRN IV AFTER MEDS AND BLOOD DRAWS; Start 05/18/16 at 15:45; Stop 05/21/16 at 07:32; Status DC Fentanyl Citrate (Fentanyl 2ml Vial) 50 mcg PRN Q1HR PRN IV PAIN Last administered on 05/21/16 10:09; Start 05/18/16 at 15:45; Stop 05/21/16 at 10:40; Status DC Prochlorperazine Edisylate (Compazine) 10 mg PRN Q4HRS PRN IV NAUSEA/VOMITING; Start 05/18/16 at 15:45 Dextrose 12.5 gm 12.5 gm PRN Q15MIN PRN IV SEE COMMENTS; Start 05/18/16 at 15: 45 Cefazolin Sodium/ Sodium Chloride (Ancef/Iv Sodium Chloride 0.9% 50ml) 50 ml @ 100 mls/hr Q6H IV Last administered on 05/19/16 05:00; Start 05/18/16 at 16:00 ; Stop 05/19/16 at 04:29; Status DC Warfarin Sodium (Coumadin) 5 mg 1X WARF ONCE PO ; Start 05/18/16 at 16:00; Stop 05/18/16 at 16:01; Status DC Lidocaine/Sodium Bicarbonate 20 ml 20 ml STK-MED ONCE IJ ; Start 05/18/16 at 16: 51; Stop 05/18/16 at 16:52; Status DC Heparin Sodium/ Sodium Chloride 500 ml @ As Directed STK-MED ONCE .ROUTE ; Start 05/18/16 at 16:51; Stop 05/18/16 at 16:52; Status DC Heparin Sodium (Porcine) 36551 unit 10,000 unit STK-MED ONCE .ROUTE ; Start at 16:52; Stop 05/18/16 at 16:53; Status DC Sodium Chloride (Iv Sodium Chloride 0.9% 1000ml Bag) 1,000 ml @ 1,000 mls/hr Q1H PRN IV hypotension; Start 05/18/16 at 17:23; Stop 05/18/16 at 23:22; Status DC Diphenhydramine HCl (Benadryl) 75 mg 1X PRN PRN IV ITCHING; Start 05/18/16 at 17:30; Stop 05/19/16 at 17:29; Status DC Info (PHARMACY MONITORING -- do not chart) 1 each PRN DAILY PRN MC SEE COMMENTS Last administered on 05/24/16 11:02; Start 05/18/16 at 17:30 Info (PHARMACY MONITORING -- do not chart) 1 each PRN DAILY PRN MC SEE COMMENTS ; Start 05/18/16 at 17:30; Status UNV Lidocaine/Sodium Bicarbonate (Buffered Lidocaine 1%) 3 ml 1X ONCE IJ Last administered on 05/18/16 17:34; Start 05/18/16 at 17:30; Stop 05/18/16 at 17:34 ; Status DC Heparin Sodium/ Sodium Chloride 60 unit 1X ONCE IV ; Start 05/18/16 at 17:30; Stop 05/18/16 at 17:34; Status DC Insulin Aspart (Novolog Vial) 10 unit 1X ONCE SQ ; Start 05/18/16 at 18:30; Stop 05/18/16 at 18:31; Status Cancel Insulin Human Regular 10 unit 10 unit 1X ONCE IV ; Start 05/18/16 at 19:00; Stop 05/18/16 at 19:01; Status DC Propofol (Diprivan) 100 ml @ 0 mls/hr CONT PRN IV . Last administered on 02:10; Start 05/18/16 at 19:00; Stop 05/21/16 at 07:32; Status DC Darbepoetin Jude (Aranesp) 60 mcg [id number] SQ ; Start 05/19/16 at 21:00 Diphenhydramine HCl (Benadryl) 50 mg 1X ONCE IM Last administered on 05/19/16 13:27; Start 05/19/16 at 13:15; Stop 05/19/16 at 13:16; Status DC Warfarin Sodium (Coumadin - No Dose Today) 1 each 1X WARF ONCE MC ; Start at 16:00; Stop 05/19/16 at 16:01; Status DC Hydralazine HCl (Apresoline) 10 mg PRN Q4HRS PRN IVP ELEVATED BP, SEE COMMENTS Last administered on 05/24/16 21:55; Start 05/19/16 at 16:15 Amlodipine Besylate (Norvasc) 10 mg 1X ONCE PO Last administered on 05/19/16 17:34; Start 05/19/16 at 17:30; Stop 05/19/16 at 17:31; Status DC Lisinopril (Prinivil) 20 mg 1X ONCE PO Last administered on 05/19/16 17:34; Start 05/19/16 at 17:30; Stop 05/19/16 at 17:31; Status DC Metoprolol Succinate (Toprol Xl) 200 mg 1X ONCE PO Last administered on 17:34; Start 05/19/16 at 17:30; Stop 05/19/16 at 17:31; Status DC Lidocaine HCl 2 ml 2 ml STK-MED ONCE .ROUTE ; Start 05/20/16 at 08:19; Stop at 08:20; Status DC Sodium Chloride (Iv Sodium Chloride 0.9% 1000ml Bag) 1,000 ml @ 1,000 mls/hr Q1H PRN IV hypotension; Start 05/20/16 at 09:24; Stop 05/20/16 at 15:23; Status DC Diphenhydramine HCl (Benadryl) 25 mg 1X PRN PRN IV ITCHING Last administered on 05/20/16 09:36; Start 05/20/16 at 09:30; Stop 05/21/16 at 07:32; Status DC Diphenhydramine HCl (Benadryl) 25 mg 1X PRN PRN IV ITCHING Last administered on 05/20/16 09:59; Start 05/20/16 at 09:30; Stop 05/21/16 at 07:32; Status DC Sodium Chloride (Normal Saline Flush) 10 ml 1X PRN PRN IV AP catheter pack; Start 05/20/16 at 09:30; Stop 05/21/16 at 09:29; Status DC Sodium Chloride (Normal Saline Flush) 10 ml 1X PRN PRN IV 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; Start 05/20/16 at 09:30; Stop 05/21/16 at 09:29; Status DC Info (PHARMACY MONITORING -- do not chart) 1 each PRN DAILY PRN MC SEE COMMENTS ; Start 05/20/16 at 09:30; Stop 05/20/16 at 09:31; Status DC Info (PHARMACY MONITORING -- do not chart) 1 each PRN DAILY PRN MC SEE COMMENTS ; Start 05/20/16 at 09:30; Status Cancel Warfarin Sodium (Coumadin) 3 mg 1X WARF ONCE PO Last administered on 05/20/16 16:26; Start 05/20/16 at 16:00; Stop 05/20/16 at 16:01; Status DC Dextrose 25 gm STK-MED ONCE IV ; Start 05/19/16 at 12:00; Stop 05/20/16 at 16:10; Status DC Epinephrine HCl 1 mg STK-MED ONCE .ROUTE ; Start 05/19/16 at 12:00; Stop 05/20/16 at 16:10; Status DC Sodium Bicarbonate 50 meq STK-MED ONCE .ROUTE ; Start 05/19/16 at 12:00; Stop 05/20/16 at 16:10; Status DC Diphenhydramine HCl (Benadryl) 50 mg 1X ONCE IVP Last administered on 04:02; Start 05/21/16 at 04:00; Stop 05/21/16 at 10:18; Status DC Lidocaine HCl (Xylocaine-Mpf 1% Vial) 2 ml STK-MED ONCE .ROUTE ; Start 05/20/16 at 08:00; Stop 05/21/16 at 08:00; Status DC Fentanyl Citrate (Fentanyl 2ml Vial) 50 mcg PRN Q3HRS PRN IV PAIN Last administered on 05/26/16 08:41; Start 05/21/16 at 10:27 Morphine Sulfate 2 mg PRN Q3HRS PRN IV PAIN Last administered on 05/25/16 09:07 ; Start 05/21/16 at 10:27; Stop 05/25/16 at 11:44; Status DC Morphine Sulfate 4 mg PRN Q3HRS PRN IV PAIN Last administered on 05/24/16 17:16 ; Start 05/21/16 at 10:27; Stop 05/25/16 at 11:44; Status DC Diphenhydramine HCl (Benadryl) 50 mg PRN Q6HRS PRN IVP itching Last administered on 05/26/16 06:43; Start 05/21/16 at 10:30 Ondansetron HCl (Zofran) 4 mg PRN Q6HRS PRN IV NAUSEA/VOMITING Last administered on 05/25/16 12:33; Start 05/21/16 at 11:15 Warfarin Sodium 3 mg 3 mg 1X WARF ONCE PO Last administered on 05/21/16 15:08 ; Start 05/21/16 at 16:00; Stop 05/21/16 at 16:01; Status DC Sodium Chloride (Iv Sodium Chloride 0.9% 1000ml Bag) 1,000 ml @ 1,000 mls/hr Q1H PRN IV hypotension; Start 05/22/16 at 09:36; Stop 05/22/16 at 15:35; Status DC Diphenhydramine HCl (Benadryl) 25 mg 1X PRN PRN IV ITCHING Last administered on 05/22/16 16:52; Start 05/22/16 at 09:45; Stop 05/22/16 at 19:00; Status DC Sodium Chloride (Normal Saline Flush) 10 ml 1X PRN PRN IV AP catheter pack; Start 05/22/16 at 09:45; Stop 05/22/16 at 19:00; Status DC Sodium Chloride (Normal Saline Flush) 10 ml 1X PRN PRN IV 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; Start 05/22/16 at 09:45; Stop 05/22/16 at 19:00; Status DC Info (PHARMACY MONITORING -- do not chart) 1 each PRN DAILY PRN MC SEE COMMENTS ; Start 05/22/16 at 09:45; Status UNV Info (PHARMACY MONITORING -- do not chart) 1 each PRN DAILY PRN MC SEE COMMENTS ; Start 05/22/16 at 09:45; Status UNV Warfarin Sodium (Coumadin) 2 mg 1X WARF ONCE PO Last administered on 05/22/16 17:48; Start 05/22/16 at 16:00; Stop 05/22/16 at 16:01; Status DC Warfarin Sodium 2 mg 2 mg 1X WARF ONCE PO Last administered on 05/23/16 15:56 ; Start 05/23/16 at 16:00; Stop 05/23/16 at 16:01; Status DC Ceftriaxone Sodium/Sodium Chloride (Rocephin/Iv Sodium Chloride 0.9% 50ml) 50 ml @ 100 mls/hr Q24H IV Last administered on 05/23/16 15:13; Start 05/23/16 at 15:00; Stop 05/24/16 at 12:53; Status DC Albuterol/ Ipratropium (Duoneb) 3 ml RTQID NEB Last administered on 05/25/16 16 :46; Start 05/23/16 at 16:00; Stop 05/26/16 at 12:08; Status DC Warfarin Sodium (Coumadin) 2 mg 1X WARF ONCE PO ; Start 05/24/16 at 16:00; Stop 05/24/16 at 16:01; Status DC Ondansetron HCl (Zofran) 4 mg PRN Q6HRS PRN IV Nausea; Start 05/25/16 at 07:00; Stop 05/25/16 at 18:00; Status DC Fentanyl Citrate (Fentanyl 2ml Vial) 25 mcg PRN Q5MIN PRN IV MILD PAIN; Start 05/25/16 at 07:00; Stop 05/25/16 at 18:00; Status DC Fentanyl Citrate (Fentanyl 2ml Vial) 50 mcg PRN Q5MIN PRN IV MODERATE PAIN; Start 05/25/16 at 07:00; Stop 05/25/16 at 18:00; Status DC Morphine Sulfate 1 mg 1 mg PRN Q10MIN PRN IV SEVERE PAIN; Start 05/25/16 at 07: 00; Stop 05/25/16 at 18:00; Status DC Lactated Ringer's (Iv Lactated Ringers) 1,000 ml @ 30 mls/hr Q24H IV ; Start at 07:00; Stop 05/25/16 at 18:59; Status DC Lidocaine HCl 2 ml 1X PRN PRN ID IV START; Start 05/25/16 at 07:00; Stop at 18:00; Status DC Hydromorphone HCl (Dilaudid) 0.5 mg PRN Q10MIN PRN IV SEVERE PAIN, Second choice; Start 05/25/16 at 07:00; Stop 05/25/16 at 18:00; Status DC Piperacillin Sod/ Tazobactam Sod 1 each 1 each PRN DAILY PRN MC SEE COMMENTS; Start 05/24/16 at 13:00 Piperacillin Sod/ Tazobactam Sod 2.25 gm/Sodium Chloride 50 ml @ 100 mls/hr Q6HRS IV Last administered on 05/26/16t 11:25; Start 05/24/16 at 13:00 Sodium Chloride (Iv Sodium Chloride 0.9% 1000ml Bag) 1,000 ml @ 1,000 mls/hr Q1H PRN IV hypotension; Start 05/24/16 at 13:14; Stop 05/24/16 at 19:13; Status DC Diphenhydramine HCl (Benadryl) 25 mg 1X PRN PRN IV ITCHING; Start 05/24/16 at 13 :15; Stop 05/24/16 at 14:09; Status DC Diphenhydramine HCl (Benadryl) 25 mg 1X PRN PRN IV ITCHING; Start 05/24/16 at 13 :15; Stop 05/24/16 at 14:09; Status DC Sodium Chloride (Normal Saline Flush) 10 ml 1X PRN PRN IV AP catheter pack; Start 05/24/16 at 13:15; Stop 05/25/16 at 13:14; Status DC Sodium Chloride 10 ml 10 ml 1X PRN PRN IV 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; Start 05/24/16 at 13 :15; Stop 05/25/16 at 13:14; Status DC Sodium Chloride (Iv Sodium Chloride 0.9% 1000ml Bag) 1,000 ml @ 400 mls/hr Q2H30M PRN IV PATENCY; Start 05/24/16 at 13:14; Stop 05/25/16 at 01:13; Status DC Info (PHARMACY MONITORING -- do not chart) 1 each PRN DAILY PRN MC SEE COMMENTS ; Start 05/24/16 at 13:15; Status UNV Diphenhydramine HCl 75 mg 75 mg 1X ONCE IV Last administered on 05/24/16t 14:47 ; Start 05/24/16 at 14:15; Stop 05/24/16 at 14:18; Status DC Sodium Chloride (Iv Sodium Chloride 0.9% 1000ml Bag) 1,000 ml @ 1,000 mls/hr Q1H PRN IV hypotension; Start 05/25/16 at 08:17; Stop 05/25/16 at 14:16; Status DC Diphenhydramine HCl (Benadryl) 25 mg 1X PRN PRN IV ITCHING Last administered on 05/25/16 09:00; Start 05/25/16 at 08:30; Stop 05/26/16 at 08:29; Status DC Diphenhydramine HCl (Benadryl) 25 mg 1X PRN PRN IV ITCHING; Start 05/25/16 at 08 :30; Stop 05/26/16 at 08:29; Status DC Info (PHARMACY MONITORING -- do not chart) 1 each PRN DAILY PRN MC SEE COMMENTS ; Start 05/25/16 at 08:30; Status UNV Warfarin Sodium (Coumadin - No Dose Today) 1 each 1X WARF ONCE MC ; Start at 16:00; Stop 05/25/16 at 16:01; Status DC Diphenhydramine HCl (Benadryl) 25 mg 1X ONCE IVP Last administered on t 12:34; Start 05/25/16 at 12:45; Stop 05/25/16 at 12:46; Status DC Morphine Sulfate 4 mg 4 mg PRN Q3HRS PRN IV PAIN Last administered on 05/26/16t 11:33; Start 05/25/16 at 12:45 Lactated Ringer's (Iv Lactated Ringers) 1,000 ml @ 50 mls/hr Q20H IV ; Start at 13:00; Stop 05/26/16 at 12:59; Status DC Lidocaine HCl (Xylocaine-Mpf 1% Vial) 2 ml 1X PRN PRN ID FOR PIC LINE INSERTION ; Start 05/26/16 at 08:45; Stop 05/27/16 at 08:44 Sodium Chloride (Normal Saline Flush) 20 ml 1X PRN PRN IV PER PROTOCOL; Start 05/26/16 at 08:45; Stop 05/27/16 at 08:44 Lidocaine/ Prilocaine (Emla) 1 noelle 1X ONCE TP ; Start 05/26/16 at 08:45; Stop at 08:46; Status DC Warfarin Sodium (Coumadin) 3 mg 1X WARF ONCE PO ; Start 05/26/16 at 16:00; Stop 05/26/16 at 16:01 Ondansetron HCl 4 mg 4 mg STK-MED ONCE .ROUTE ; Start 05/26/16 at 11:54; Stop 05/26/16 at 11:55; Status DC Propofol (Diprivan) 40 ml @ As Directed STK-MED ONCE IV ; Start 05/26/16 at 11:54 ; Stop 05/26/16 at 11:55; Status DC Lidocaine HCl 100 mg STK-MED ONCE .ROUTE ; Start 05/26/16 at 11:54; Stop 05/26/16 at 11:55; Status DC Lidocaine/Sodium Bicarbonate 20 ml 20 ml STK-MED ONCE IJ ; Start 05/26/16 at 12: 02; Stop 05/26/16 at 12:03; Status DC Heparin Sodium/ Sodium Chloride 1,000 ml @ As Directed STK-MED ONCE .ROUTE ; Start 05/26/16 at 12:02; Stop 05/26/16 at 12:03; Status DC Iodixanol (Visipaque 320) 100 ml STK-MED ONCE .ROUTE ; Start 05/26/16 at 12:02; Stop 05/26/16 at 12:03; Status DC Albuterol Sulfate (Ventolin Neb Soln) 2.5 mg PRN QID PRN NEB SHORTNESS OF BREATH; Start 05/26/16 at 12:15 Alteplase, Recombinant (Cathflo) 4 mg 1X ONCE IV ; Start 05/26/16 at 12:30; Stop 05/26/16 at 12:33; Status DC Heparin Sodium/ Sodium Chloride 1,000 unit 1X ONCE IART ; Start 05/26/16 at 13: 00; Stop 05/26/16 at 13:01; Status DC Heparin Sodium/ Sodium Chloride 1,000 unit 1X ONCE IART ; Start 05/26/16 at 13: 00; Stop 05/26/16 at 13:01; Status DC Lidocaine/Sodium Bicarbonate (Buffered Lidocaine 1%) 20 ml 1X ONCE IJ ; Start 05/26/16 at 13:00; Stop 05/26/16 at 13:01; Status DC Iodixanol (Visipaque 320) 100 ml 1X ONCE IART ; Start 05/26/16 at 13:00; Stop at 13:01; Status DC Info (Do NOT chart on this entry -- for MONITORING) 1 each PRN DAILY PRN MC SEE COMMENTS; Start 05/26/16 at 13:00; Stop 05/28/16 at 12:59 Heparin Sodium (Porcine) 10,000 unit STK-MED ONCE .ROUTE ; Start 05/26/16 at 13: 27; Stop 05/26/16 at 13:28; Status DC Heparin Sodium (Porcine) 2,500 unit 1X ONCE IV ; Start 05/26/16 at 13:30; Stop 05/26/16 at 13:31; Status UNV Active Scripts Active Zofran Odt (Ondansetron) 4 Mg Tab.rapdis 1 Tab SL Q8HRS PRN Reported Percocet 7.5-325 Mg Tablet (Oxycodone/Acetaminophen) 1 Each Tablet 1 Tab PO PRN Q8HRS PRN Xanax (Alprazolam) 0.25 Mg Tablet 2 Mg PO TID PRN Metoprolol Succinate ( Xl ) (Metoprolol Succinate) 200 Mg Tab.er.24h 1 Tab PO DAILY Hydralazine Hcl 50 Mg Tablet 1 Tab PO TID Amlodipine Besylate 10 Mg Tablet 1 Tab PO DAILY Vitals/I & O Vital Sign - Last 24 Hours 05/25/16 05/25/16 05/25/16 05/25/16 14:18 15:00 15:00 16:35 Temp 97.7 97.4 97.7 97.4 Pulse 113 97 Resp 18 18 B/P 120/82 110/70 Pulse Ox 96 97 97 O2 Delivery Nasal Cannula Nasal Cannula Nasal Cannula O2 Flow Rate 4.0 5.0 5.0 05/25/16 05/25/16 05/25/16 05/25/16 16:41 16:47 16:55 18:00 Temp 97.0 97.9 96.6 97.0 97.9 96.6 Pulse 99 108 108 Resp 17 B/P 117/85 128/80 135/92 O2 Delivery Nasal Cannula O2 Flow Rate 4.0 05/25/16 05/25/16 05/25/16 05/25/16 18:07 19:00 19:00 20:00 Temp 98.5 98.5 98.5 98.5 Pulse 109 109 Resp 18 18 B/P 131/101 131/101 Pulse Ox 97 97 O2 Delivery Nasal Cannula Nasal Cannula Nasal Cannula O2 Flow Rate 4.0 3.0 3.0 05/25/16 05/25/16 05/25/16 05/25/16 20:00 20:10 21:11 21:14 Pulse 99 108 Resp 16 16 20 16 B/P 99/62 140/103 O2 Delivery Nasal Cannula Nasal Cannula Nasal Cannula Nasal Cannula O2 Flow Rate 3.0 3.0 3.0 3.0 05/25/16 05/25/16 05/25/16 05/26/16 21:25 23:00 23:40 01:04 Temp 98.2 98.2 Pulse 108 109 Resp 16 18 16 16 B/P 145/103 138/100 Pulse Ox 95 98 O2 Delivery Nasal Cannula Nasal Cannula Nasal Cannula Nasal Cannula O2 Flow Rate 3.0 3.0 3.0 3.0 05/26/16 05/26/16 05/26/16 05/26/16 01:35 02:45 03:00 05:53 Temp 98.2 98.2 Pulse 104 Resp 16 16 18 16 B/P 152/104 Pulse Ox 96 96 O2 Delivery Nasal Cannula Nasal Cannula Nasal Cannula O2 Flow Rate 3.0 3.0 3.0 05/26/16 05/26/16 05/26/16 05/26/16 06:32 07:00 07:29 08:00 Temp 98.4 98.4 Pulse 102 Resp 16 18 B/P 151/105 Pulse Ox 96 O2 Delivery Nasal Cannula Nasal Cannula Nasal Cannula O2 Flow Rate 4.0 3.0 3.0 05/26/16 05/26/16 05/26/16 05/26/16 08:39 08:40 08:40 08:40 Pulse 102 102 102 102 B/P 151/105 151/105 151/105 151/105 05/26/16 05/26/16 05/26/16 05/26/16 08:41 09:15 11:00 11:18 Temp 98.7 98.7 Pulse 106 Resp 16 B/P 151/104 Pulse Ox 96 96 98 98 O2 Delivery Nasal Cannula Nasal Cannula Nasal Cannula Nasal Cannula O2 Flow Rate 3.0 3.0 4.0 4.0 05/26/16 05/26/16 11:33 12:05 Pulse Ox 98 98 O2 Delivery Nasal Cannula Nasal Cannula O2 Flow Rate 4.0 4.0 Intake and Output 05/25/16 05/25/16 05/26/16 15:00 23:00 07:00 Intake Total 330 ml 875 ml 350 ml Output Total 75 ml Balance 330 ml 800 ml 350 ml FABIOLA ZHANG MD May 26, 2016 13:41
--- NOTE | 2016-05-26 14:02 | PDOC ---
PULMONARY PROGRESS NOTES Subjective no resp distress Vitals Vital Signs Date Time Temp Pulse Resp B/P Pulse Ox O2 Delivery O2 Flow Rate FiO2 05/26/16 12:05 98 Nasal Cannula 4.0 05/26/16 11:00 98.7 106 16 151/104 98.7 ROS: No Nausea, No Abdominal Pain, No Increase Cough General: Alert Lungs: Other (few crackles post) Cardiovascular: S1, S2 Abdomen: Soft, Non-tender Neuro Exam: Alert Extremities: No Edema Skin: Warm Labs Laboratory Tests Test 05/25/16 08:10 05/26/16 09:30 White Blood Count 8.7x10^3/uL (4.0-11.0) 8.5x10^3/uL (4.0-11.0) Red Blood Count 1.88x10^6/uL (3.50-5.40) 3.41x10^6/uL (3.50-5.40) Hemoglobin 5.9g/dL (12.0-15.5) 10.5g/dL (12.0-15.5) Hematocrit 18.1% (36.0-47.0) 31.7% (36.0-47.0) Mean Corpuscular Volume 96fL (79-100) 93fL (79-100) Mean Corpuscular Hemoglobin 31pg (25-35) 31pg (25-35) Mean Corpuscular Hemoglobin Concent 32g/dL (31-37) 33g/dL (31-37) Red Cell Distribution Width 17.3% (11.5-14.5) 15.7% (11.5-14.5) Platelet Count 246x10^3/uL (140-400) 273x10^3/uL (140-400) Neutrophils (%) (Auto) 78% (31-73) 79% (31-73) Lymphocytes (%) (Auto) 9% (24-48) 9% (24-48) Monocytes (%) (Auto) 9% (0-9) 7% (0-9) Eosinophils (%) (Auto) 4% (0-3) 5% (0-3) Basophils (%) (Auto) 1% (0-3) 1% (0-3) Neutrophils # (Auto) 6.8x10^3uL (1.8-7.7) 6.7x10^3uL (1.8-7.7) Lymphocytes # (Auto) 0.8x10^3/uL (1.0-4.8) 0.7x10^3/uL (1.0-4.8) Monocytes # (Auto) 0.7x10^3/uL (0.0-1.1) 0.6x10^3/uL (0.0-1.1) Eosinophils # (Auto) 0.4x10^3/uL (0.0-0.7) 0.4x10^3/uL (0.0-0.7) Basophils # (Auto) 0.0x10^3/uL (0.0-0.2) 0.1x10^3/uL (0.0-0.2) Prothrombin Time 18.0SEC (11.7-14.0) 15.1SEC (11.7-14.0) Prothromb Time International Ratio 1.6 (0.8-1.1) 1.3 (0.8-1.1) Sodium Level 139mmol/L (136-145) 141mmol/L (136-145) Potassium Level 4.6mmol/L (3.5-5.1) 4.7mmol/L (3.5-5.1) Chloride Level 101mmol/L (98-107) 102mmol/L (98-107) Carbon Dioxide Level 30mmol/L (21-32) 30mmol/L (21-32) Anion Gap 8 (6-14) 9 (6-14) Blood Urea Nitrogen 24mg/dL (7-20) 25mg/dL (7-20) Creatinine 4.2mg/dL (0.6-1.0) 3.5mg/dL (0.6-1.0) Estimated GFR (Cockcroft-Gault) 12.8 15.8 Glucose Level 99mg/dL (70-99) 100mg/dL (70-99) Calcium Level 8.8mg/dL (8.5-10.1) 9.3mg/dL (8.5-10.1) Laboratory Tests Test 05/26/16 09:30 White Blood Count 8.5x10^3/uL (4.0-11.0) Red Blood Count 3.41x10^6/uL (3.50-5.40) Hemoglobin 10.5g/dL (12.0-15.5) Hematocrit 31.7% (36.0-47.0) Mean Corpuscular Volume 93fL (79-100) Mean Corpuscular Hemoglobin 31pg (25-35) Mean Corpuscular Hemoglobin Concent 33g/dL (31-37) Red Cell Distribution Width 15.7% (11.5-14.5) Platelet Count 273x10^3/uL (140-400) Neutrophils (%) (Auto) 79% (31-73) Lymphocytes (%) (Auto) 9% (24-48) Monocytes (%) (Auto) 7% (0-9) Eosinophils (%) (Auto) 5% (0-3) Basophils (%) (Auto) 1% (0-3) Neutrophils # (Auto) 6.7x10^3uL (1.8-7.7) Lymphocytes # (Auto) 0.7x10^3/uL (1.0-4.8) Monocytes # (Auto) 0.6x10^3/uL (0.0-1.1) Eosinophils # (Auto) 0.4x10^3/uL (0.0-0.7) Basophils # (Auto) 0.1x10^3/uL (0.0-0.2) Prothrombin Time 15.1SEC (11.7-14.0) Prothromb Time International Ratio 1.3 (0.8-1.1) Sodium Level 141mmol/L (136-145) Potassium Level 4.7mmol/L (3.5-5.1) Chloride Level 102mmol/L (98-107) Carbon Dioxide Level 30mmol/L (21-32) Anion Gap 9 (6-14) Blood Urea Nitrogen 25mg/dL (7-20) Creatinine 3.5mg/dL (0.6-1.0) Estimated GFR (Cockcroft-Gault) 15.8 Glucose Level 100mg/dL (70-99) Calcium Level 9.3mg/dL (8.5-10.1) Medications Active Scripts Medications Dose Route/Sig Days Date Category Zofran Odt (Ondansetron) 4 Mg Tab.rapdis 1 Tab SL Q8HRS PRN 10/28/15 Rx Percocet 7.5-325 Mg Tablet (Oxycodone/Acetaminophen) 1 Each Tablet 1 Tab PO PRN Q8HRS PRN 08/30/14 Reported Xanax (Alprazolam) 0.25 Mg Tablet 2 Mg PO TID PRN 11/10/13 Reported Metoprolol Succinate ( Xl ) (Metoprolol Succinate) 200 Mg Tab.er.24h 1 Tab PO DAILY 11/10/13 Reported Hydralazine Hcl 50 Mg Tablet 1 Tab PO TID 11/10/13 Reported Amlodipine Besylate 10 Mg Tablet 1 Tab PO DAILY 11/10/13 Reported Impression . ACUTE RESP FAILURE SEC TO PEA, RESOLVED PEA SUSPECT ACIDOSIS VS HYPOVOLEMIA/HYPERKALEMIA, RESOLVED ESRD/HD S/P HIP REPAIR WORSENING CXR , SUSPECT CHF, CANNOT EXCLUDE PNEUMONIA Plan . Nasal canula HD with UF labs reviewed / CXR reviewed Agree with Don f/u cxr in few days d/w PCP SINDY SORENSEN MD May 26, 2016 14:02
--- NOTE | 2016-05-26 15:05 | PDOC ---
SUBJECTIVE ROS ESRD Groggy; Just back from IR after declott. Seen in PACU, unable to get ROS OBJECTIVE Vital Signs Vital Signs Date Time Temp Pulse Resp B/P Pulse Ox O2 Delivery O2 Flow Rate FiO2 05/26/16 12:05 98 Nasal Cannula 4.0 05/26/16 11:00 98.7 106 16 151/104 98.7 I & 0 Intake and Output 05/26/16 07:00 Intake Total 1555 ml Output Total 75 ml Balance 1480 ml Intake Oral 600 ml IV Total 80 ml Blood Product 545 ml Blood Product IV Normal Saline Flush 330 ml Output Urine Total 75 ml PHYSICAL EXAM Physical Exam GEN: Awake, Oriented x ? groggy, In no distress; NCO2 EYES: Vision Unchanged, Conjunctiva Normal EN: No EN Drainage, Mucous Membranes dryish NECK: no JVD, min JVP, Supple, no Thyromegaly CVS: S1S2, + Murmur, No Gallop, No Rub,no Edema RESP: no Rales, no Rhonchi,no Acc. Muscle Use GI: BS + ve, NO Bruit, Non Tender, Non Distended : no CVA tenderness, no Suprapubic Tenderness DIAGNOSIS/ASSESSMENT Assessment & Plan ESRD: Current fluid and E-lyte status does not necessitate emergent need for dialysis. Will re-evaluate for dialysis in the am and continue on TTSat schedule. Tendency to ^K - none today. suspect due to Dietary NON-Compliance - Pt has been asking her friends on FB to bring her food from outside ANEMIA; Aranap as ordered, Transfuse with next HD as needed HTN: Current BP meds as reviewed. See orders for changes. 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 Problems: COMMENT/RELEVANT DATA Meds Current Medications Medications (Trade) Dose Ordered Sig/Rolly Start Time Stop Time Status Last Admin Dose Admin Acetaminophen (Tylenol) 650 mg PRN Q4HRS PRN 05/18/16 15:45 05/25/16 12:33 650 MG Acetaminophen/ Hydrocodone Bitart 2 tab 2 tab 1X PREOP PRN 05/18/16 06:00 05/18/16 18:00 DC Acetaminophen/ Hydrocodone Bitart (Lortab 10/325) 1 tab PRN Q3HRS PRN 05/18/16 15:45 Acetaminophen/ Hydrocodone Bitart (Lortab 7.5/325) 1 tab PRN Q3HRS PRN 05/18/16 15:45 05/21/16 10:18 DC Albuterol Sulfate (Ventolin Neb Soln) 2.5 mg PRN QID PRN 05/26/16 12:15 Albuterol/ Ipratropium (Duoneb) 3 ml RTQID 05/23/16 16:00 05/26/16 12:08 DC 05/25/16 16:46 3 ML Alprazolam (Xanax) 2 mg PRN TID PRN 05/15/16 20:47 05/25/16 12:33 2 MG Alteplase, Recombinant (Cathflo) 4 mg 1X ONCE 05/26/16 12:30 05/26/16 12:33 DC 05/26/16 14:47 4 MG Amlodipine Besylate (Norvasc) 10 mg 1X ONCE 05/19/16 17:30 05/19/16 17:31 DC 05/19/16 17:34 10 MG Bisacodyl (Dulcolax Supp) 10 mg 1X PRN PRN 05/19/16 16:00 05/20/16 15:59 DC Calcium Carbonate/ Glycine (Tums) 500 mg PRN QID PRN 05/18/16 15:45 Cefazolin Sodium (Ancef 1gm Ivpb For Omni) 50 ml @ As Directed STK-MED ONCE 05/18/16 13:02 05/18/16 13:03 DC Cefazolin Sodium/ Dextrose 50 ml @ 100 mls/hr 1X PREOP PRN 05/18/16 06:00 05/18/16 18:00 DC Cefazolin Sodium/ Dextrose 2 gm 2 gm STK-MED ONCE 05/18/16 07:30 05/18/16 12:41 DC Cefazolin Sodium/ Sodium Chloride (Ancef/Iv Sodium Chloride 0.9% 50ml) 50 ml @ 100 mls/hr Q6H 05/18/16 16:00 05/19/16 04:29 DC 05/19/16 05:00 100 MLS/HR Ceftriaxone Sodium/Sodium Chloride (Rocephin/Iv Sodium Chloride 0.9% 50ml) 50 ml @ 100 mls/hr Q24H 05/23/16 15:00 05/24/16 12:53 DC 05/23/16 15:13 100 MLS/HR Darbepoetin Jude (Aranesp) 60 mcg [id number] 05/19/16 21:00 Dexamethasone Sodium Phosphate (Decadron) 20 mg STK-MED ONCE 05/18/16 06:57 05/18/16 06:58 DC Dextrose 25 gm STK-MED ONCE 05/19/16 12:00 05/20/16 16:10 DC Dextrose 12.5 gm 12.5 gm PRN Q15MIN PRN 05/18/16 15:45 Dextrose/Sodium Chloride (Iv D5% - 03/22 NS) 1,000 ml @ 100 mls/hr Q10H 05/18/16 15:31 05/19/16 07:48 DC Diphenhydramine HCl (Benadryl) 25 mg 1X ONCE 05/25/16 12:45 05/25/16 12:46 DC 05/25/16 12:34 25 MG Diphenhydramine HCl 75 mg 75 mg 1X ONCE 05/24/16 14:15 05/24/16 14:18 DC 05/24/16 14:47 75 MG Epinephrine HCl 1 mg STK-MED ONCE 05/19/16 12:00 05/20/16 16:10 DC Fentanyl Citrate (Fentanyl 2ml Vial) 50 mcg PRN Q5MIN PRN 05/25/16 07:00 05/25/16 18:00 DC Fentanyl Citrate (Fentanyl 5ml Vial) 250 mcg STK-MED ONCE 05/18/16 13:27 05/18/16 13:28 DC Ferrous Sulfate 325 mg 325 mg [id number] 05/18/16 17:00 05/26/16 08:39 325 MG Heparin Sodium (Porcine) 2,500 unit 1X ONCE 05/26/16 13:30 05/26/16 13:38 DC 05/26/16 14:53 3,500 UNIT Heparin Sodium/ Sodium Chloride 1,000 unit 1X ONCE 05/26/16 13:00 05/26/16 13:01 DC 05/26/16 14:49 1,000 UNIT Hydralazine HCl (Apresoline) 10 mg PRN Q4HRS PRN 05/19/16 16:15 05/24/16 21:55 10 MG Hydromorphone HCl (Dilaudid) 0.5 mg PRN Q10MIN PRN 05/25/16 07:00 05/25/16 18:00 DC Info (Do NOT chart on this entry -- for MONITORING) 1 each PRN DAILY PRN 05/26/16 13:00 05/28/16 12:59 Info (PHARMACY MONITORING -- do not chart) 1 each PRN DAILY PRN 05/25/16 08:30 UNV Info 1 each 1 each PRN DAILY PRN 05/17/16 12:45 UNV Insulin Aspart (Novolog Vial) 10 unit 1X ONCE 05/18/16 18:30 05/18/16 18:31 Cancel Insulin Human Regular (Novolin R Vial) 10 unit 1X ONCE 05/18/16 19:00 05/18/16 19:01 DC Iodixanol (Visipaque 320) 100 ml 1X ONCE 05/26/16 13:00 05/26/16 13:01 DC 05/26/16 14:48 110 ML Labetalol HCl (Normodyne) 20 mg PRN Q6HRS PRN 05/15/16 23:30 05/25/16 10:08 20 MG Lactated Ringer's (Iv Lactated Ringers) 1,000 ml @ 50 mls/hr Q20H 05/25/16 13:00 05/26/16 12:59 DC Lidocaine HCl 100 mg STK-MED ONCE 05/26/16 11:54 05/26/16 11:55 DC Lidocaine HCl (Xylocaine-Mpf 1% Vial) 2 ml 1X PRN PRN 05/26/16 08:45 05/27/16 08:44 Lidocaine/ Prilocaine (Emla) 1 noelle 1X ONCE 05/26/16 08:45 05/26/16 08:46 DC Lidocaine/Sodium Bicarbonate (Buffered Lidocaine 1%) 20 ml 1X ONCE 05/26/16 13:00 05/26/16 13:01 DC 05/26/16 14:48 1 ML Lisinopril (Prinivil) 20 mg 1X ONCE 05/19/16 17:30 05/19/16 17:31 DC 05/19/16 17:34 20 MG Lorazepam (Ativan) 0.5 mg PRN Q8HRS PRN 05/16/16 23:30 05/26/16 08:42 0.5 MG Magnesium Hydroxide (Milk Of Magnesia) 2,400 mg 1X PRN PRN 05/19/16 06:00 05/20/16 05:59 DC Metoclopramide HCl (Reglan) 5 mg PRN Q8HRS PRN 05/16/16 22:45 05/22/16 19:45 5 MG Metoprolol Succinate (Toprol Xl) 200 mg 1X ONCE 05/19/16 17:30 05/19/16 17:31 DC 05/19/16 17:34 200 MG Midazolam HCl (Versed) 2 mg STK-MED ONCE 05/18/16 06:58 05/18/16 06:59 DC Morphine Sulfate (Morphine Preservative Free) 5 mg STK-MED ONCE 05/18/16 08:59 05/18/16 09:00 DC Morphine Sulfate 4 mg 4 mg PRN Q3HRS PRN 05/25/16 12:45 05/26/16 11:33 4 MG Morphine Sulfate/ Ketorolac Tromethamine/ Ropivacaine/ Epinephrine HCl/ Sodium Chloride (Morphine 5mg Syringe/Toradol/ Naropin 0.5%/ Adrenalin/Iv Sodium Chloride 0.9% 100ml) 100.5 ml @ 100.5 mls/ hr 1X PERIOP ONCE 05/18/16 06:00 05/18/16 06:59 DC 05/18/16 08:20 Morphine Sulfate/ Ketorolac Tromethamine/ Ropivacaine/ Epinephrine HCl/ Sodium Chloride (Morphine 5mg Syringe/Toradol/ Naropin 0.5%/ Adrenalin/Iv Sodium Chloride 0.9% 50ml) 100.5 ml @ 100.5 mls/ hr 1X PERIOP ONCE 05/18/16 06:00 05/18/16 06:59 Cancel Multivitamins/ Calcium (Thera M Plus) 1 tab DAILY 05/19/16 09:00 05/26/16 08:39 1 TAB Ondansetron HCl (Zofran Odt) 4 mg PRN Q8HRS PRN 05/15/16 20:45 05/21/16 10:18 DC Ondansetron HCl (Zofran) 4 mg PRN Q6HRS PRN 05/25/16 07:00 05/25/16 18:00 DC Ondansetron HCl 4 mg 4 mg STK-MED ONCE 05/26/16 11:54 05/26/16 11:55 DC Oxycodone/ Acetaminophen (Percocet 5/325) 1 tab PRN Q3HRS PRN 05/18/16 15:45 Oxycodone/ Acetaminophen (Percocet 7.5/ 325) 1 tab PRN Q3HRS PRN 05/18/16 15:45 Phenylephrine HCl 1 mg STK-MED ONCE 05/18/16 13:58 05/18/16 13:59 DC Piperacillin Sod/ Tazobactam Sod 1 each 1 each PRN DAILY PRN 05/24/16 13:00 Piperacillin Sod/ Tazobactam Sod/ Sodium Chloride (Zosyn/Iv Sodium Chloride 0.9% 50ml) 50 ml @ 100 mls/hr Q6HRS 05/24/16 13:00 05/26/16 11:25 100 MLS/HR Polyethylene Glycol (miraLAX PACKET) 17 gm BID 05/17/16 09:00 Prochlorperazine Edisylate (Compazine) 10 mg PRN Q4HRS PRN 05/18/16 15:45 Propofol (Diprivan) 40 ml @ As Directed STK-MED ONCE 05/26/16 11:54 05/26/16 11:55 DC Rocuronium Baker 50 mg 50 mg STK-MED ONCE 05/18/16 06:58 05/18/16 06:59 DC Rocuronium Baker (Zemuron) 50 mg STK-MED ONCE 05/18/16 08:27 05/18/16 08:28 DC Senna/Docusate Sodium (Senna Plus) 1 tab DAILY 05/19/16 09:00 05/23/16 07:52 1 TAB Sodium Bicarbonate 50 meq STK-MED ONCE 05/19/16 12:00 05/20/16 16:10 DC Sodium Chloride (Iv Sodium Chloride 0.9% 500ml Bag) 500 ml @ 30 mls/hr [id number] 05/18/16 07:45 05/19/16 07:48 DC 05/18/16 07:45 30 MLS/HR Sodium Chloride (Iv Sodium Chloride 0.9% 1000ml Bag) 1,000 ml @ 1,000 mls/hr Q1H PRN 05/25/16 08:17 05/25/16 14:16 DC Sodium Chloride (Normal Saline Flush) 20 ml 1X PRN PRN 05/26/16 08:45 05/27/16 08:44 Tramadol HCl (Ultram) 100 mg PRN Q3HRS PRN 05/18/16 15:45 Warfarin Sodium (Coumadin - No Dose Today) 1 each 1X WARF ONCE 05/25/16 16:00 05/25/16 16:01 DC Warfarin Sodium (Coumadin Per Pharmacy) 1 each PRN DAILY PRN 05/18/16 15:45 05/26/16 10:49 1 EACH Warfarin Sodium (Coumadin) 3 mg 1X WARF ONCE 05/26/16 16:00 05/26/16 16:01 Warfarin Sodium 2 mg 2 mg 1X WARF ONCE 05/23/16 16:00 05/23/16 16:01 DC 05/23/16 15:56 2 MG Zolpidem Tartrate (Ambien) 5 mg PRN QHS PRN 05/18/16 15:45 05/19/16 21:06 5 MG Lab Laboratory Tests Test 05/26/16 09:30 White Blood Count 8.5x10^3/uL (4.0-11.0) Red Blood Count 3.41x10^6/uL (3.50-5.40) Hemoglobin 10.5g/dL (12.0-15.5) Hematocrit 31.7% (36.0-47.0) Mean Corpuscular Volume 93fL (79-100) Mean Corpuscular Hemoglobin 31pg (25-35) Mean Corpuscular Hemoglobin Concent 33g/dL (31-37) Red Cell Distribution Width 15.7% (11.5-14.5) Platelet Count 273x10^3/uL (140-400) Neutrophils (%) (Auto) 79% (31-73) Lymphocytes (%) (Auto) 9% (24-48) Monocytes (%) (Auto) 7% (0-9) Eosinophils (%) (Auto) 5% (0-3) Basophils (%) (Auto) 1% (0-3) Neutrophils # (Auto) 6.7x10^3uL (1.8-7.7) Lymphocytes # (Auto) 0.7x10^3/uL (1.0-4.8) Monocytes # (Auto) 0.6x10^3/uL (0.0-1.1) Eosinophils # (Auto) 0.4x10^3/uL (0.0-0.7) Basophils # (Auto) 0.1x10^3/uL (0.0-0.2) Prothrombin Time 15.1SEC (11.7-14.0) Prothromb Time International Ratio 1.3 (0.8-1.1) Sodium Level 141mmol/L (136-145) Potassium Level 4.7mmol/L (3.5-5.1) Chloride Level 102mmol/L (98-107) Carbon Dioxide Level 30mmol/L (21-32) Anion Gap 9 (6-14) Blood Urea Nitrogen 25mg/dL (7-20) Creatinine 3.5mg/dL (0.6-1.0) Estimated GFR (Cockcroft-Gault) 15.8 Glucose Level 100mg/dL (70-99) Calcium Level 9.3mg/dL (8.5-10.1) VALERY SOARES MD May 26, 2016 15:05
[2016-05-26] MEDS ORDERED: SEVOFLURANE 31 TO 60 MINUTES. IH ONE (15:11)
[2016-05-26] MEDS ORDERED: IV RINGERS,LACTATED 1000ML 1,000 ML IV SCH (15:21)
[2016-05-26] MEDS ORDERED: HYDROMORPHONE 2 MG/ML VIAL. IV PRN (15:30)
[2016-05-26] MEDS ORDERED: ONDANSETRON PF 4 MG/2 ML VIAL. IV PRN (15:30)
[2016-05-26] MEDS ORDERED: FENTANYL PF 100 MCG/2 ML VIAL. IV PRN ×2 (15:30)
[2016-05-26] MEDS ORDERED: LIDOCAINE 1% 1 ML SYRINGE. ID PRN (15:30)
--- NOTE | 2016-05-26 15:38 | PDOC ---
Exam Business Writer Business Writer Eder Electrical Assemblies Supervisor Electrical Assemblies Supervisor B Cates Pre-Procedure Diagnosis Pre-Procedure Diagnosis 26 YO female with ESRD and thrombosed left upper arm AVG Post-Procedure Diagnosis Post-Procedure Diagnosis Same, with VA and juxta-AA stenoses, and with central vein stenoses. Procedure Performed Procedure Performed "Lyse and go" tPA declot AVG DATA BASE ADMINISTRATOR VA and juxta AA stenoses DATA BASE ADMINISTRATOR central vein stenoses Type of Anesthesia Type of Anesthesia General Estimated Blood Loss EBL: 50 cc Condition of Patient Condition of Patient Stable. No apparent complication. Disposition Disposition From IR to PACU, then return to [facility], if no problems. F/u with Renal. OK to use AVG for HD. OK to remove groin temp HDC after intra-procedure heparin effect diminishes. Full report to follow. SEBASTIAN RICO MD May 26, 2016 15:38
[2016-05-26] MEDS: MORPHINE SULFATE 2 MG/ML DISP.SYRIN. IV PRN ×4 (15:52→20:47)
[2016-05-26] MEDS ORDERED: WARFARIN 3 MG TABLET. PO ONE (16:00)
--- NOTE | 2016-05-26 16:45 | RAD ---
Alteplase declot left upper arm AV graft FRUIT BUYER venous anastomotic and juxta arterial anastomotic strictures FRUIT BUYER central venous stenoses Indication: 26-year-old female with end stage renal disease, and with thrombosed left upper arm AV graft. AV graft declot procedure has been requested by renal. Fluoroscopy time: 20.6 minutes Kerma-area product: 37 Gycm2 Anesthesia: General Contrast material: 110 cc Visipaque 320 Sterility: All elements of maximal sterile barrier technique, including the use of a cap, mask, sterile gown, sterile gloves, large sterile sheet, appropriate hand hygiene, and 2% chlorhexidine for cutaneous antisepsis (or acceptable alternative antiseptic per current guidelines) were utilized. Anticoagulation: A total of 3500 units heparin was given bolus IV during the procedure. Alteplase: A total of 4 mg alteplase was utilized. Procedure: Informed consent was obtained from the patient. She was placed supine on the angiography table. General anesthesia was provided by the department of anesthesiology. Left upper arm was prepped and draped in the usual sterile fashion, utilizing all elements of maximal sterile barrier technique, as described above. Alteplase declot AV graft: Preliminary ultrasound examination over the patient's left upper arm AV graft confirmed complete graft thrombosis. A site suitable for ultrasound-guided insertion of a proximal venous limb access sheath was selected--- this site was documented with a single hard copy ultrasound image. Using aseptic technique, local anesthesia, and direct ultrasound guidance, a 21-gauge micropuncture needle was successfully introduced into proximal venous limb of the thrombosed AV graft, with its tip directed peripherally. The micropuncture needle was exchanged over a guidewire for a short 6 Armenian vascular sheath. A 5 Armenian SpeedLyser catheter was then advanced through the 6 Armenian sheath and was positioned with its infusion length extending from proximal venous limb through the proximal arterial limb, near arterial anastomosis. A second skin site suitable for ultrasound-guided insertion of an distal arterial limb access sheath was then selected--- this site was also documented with a single hard copy ultrasound image. Using aseptic technique, local anesthesia, and direct ultrasound guidance, a 21-gauge micropuncture needle was successfully introduced into distal arterial limb of the AV graft, with its tip directed peripherally. This needle was then exchanged over a guidewire for a short 7 Armenian vascular sheath. A 5 Armenian Speedlyser catheter was then advanced through the 7 Armenian sheath and was positioned with its infusion length extending from distal arterial limb through distal venous limb, near venous anastomosis. 2 mg t-PA was then forcibly laced through each of the 2 infusion catheters, for a total t-PA dose of 4 mg. The t-PA was then allowed to dwell 10 minutes. AV shuntogram: Following t-PA thrombolysis, a small amount of Visipaque 320 was slowly injected through the venous limb and arterial limb sheaths. Fluoroscopic spot images were obtained, which revealed only a small amount of residual intraluminal thrombus within the AV graft. A 5 Armenian Berenstein catheter was then inserted through the arterial limb sheath, and was advanced into distal venous limb. A small amount of Visipaque 320 was injected through the Berenstein catheter, revealing the presence of high-grade venous anastomotic stricture. Using fluoroscopic guidance, the Berenstein catheter was successfully advanced over a Roadrunner guidewire across the venous anastomotic stricture, and was initially positioned with its tip within a previously placed left innominate vein stents. Several hand injections of Visipaque 320 were performed and "pull-back" AV fistulogram DSA images were obtained. Those images revealed moderate in-stent stenosis within the lateral aspect of the innominate vein stent. Those images also revealed recurrent stenoses within mid and lateral left subclavian vein. Axillary vein is widely patent. Superior vena cava is widely patent, as well. FRUIT BUYER central vein stenoses: The 5 Armenian Berenstein catheter, previously positioned within left innominate vein stent, was further advanced over the Roadrunner wire into inferior vena cava. The Berenstein catheter was then removed over a long Terumo advantage guidewire. The 7 Armenian short arterial limb vascular sheath was exchanged over the advantage wire for a larger 8 Armenian sheath. A 12 mm x 40 mm conquest FRUIT BUYER balloon was then advanced through the 8 Armenian sheath over the advantage wire and was utilized to perform balloon dilatation of the mid left subclavian vein stenosis to a peak pressure of 15 osiel for 5 minutes. The 12 mm FRUIT BUYER balloon was then exchanged for a 10 mm x 40 mm conquest FRUIT BUYER balloon, which was utilized to perform balloon dilatation of the lateral left subclavian artery stenosis to a peak pressure of 15 osiel for 4 minutes. Balloon dilatation of the in-stent restenosis within the left innominate vein stent was also performed utilizing a 12 mm x 40 mm Cordis Powerflex FRUIT BUYER balloon, inflated to a peak pressure of 14 osiel. FRUIT BUYER venous anastomosis: A 7 mm x 80 mm conquest FRUIT BUYER balloon was then advanced through the 8 Armenian arterial limb sheath over the advantage wire and was utilized to perform high-pressure balloon dilatation centered about venous anastomosis, to a peak pressure of 20 osiel for 3 minutes. The 7 mm FRUIT BUYER balloon was then utilized to perform balloon maceration of residual intraluminal thrombus within the venous limb and loop of the AV graft. Control DSA images revealed residual moderate narrowing at venous anastomosis. An 8 mm x 40 mm conquest FRUIT BUYER balloon was then utilized to perform additional balloon dilatation of venous anastomosis to a peak pressure of 24 osiel for 4 minutes. FRUIT BUYER juxta arterial anastomotic stenosis: Attention was then turned to episcopal of optimal graft inflow. A 7 mm x 80 mm conquest FRUIT BUYER balloon was advanced through the venous limb sheath and was utilized to perform balloon maceration of residual intraluminal thrombus within arterial limb and loop of the AV graft. A 5 mm x 20 mm Cordis extreme FRUIT BUYER balloon was then advanced through the venous limb sheath and was successfully directed over a Roadrunner wire across arterial anastomosis into left brachial artery over a Glidewire. This FRUIT BUYER balloon was gently inflated to 4 osiel, and was 3 times swept across arterial anastomosis, removing arterial plug from that location. Control DSA images revealed persistent moderate narrowing within arterial limb of the AV graft, adjacent to widely patent arterial anastomosis. A 6 mm x 40 mm conquest FRUIT BUYER balloon was then advanced through the venous limb over the Roadrunner wire and was utilized to perform balloon angioplasty of the juxta anastomotic stenosis to a peak pressure of 20 osiel for minutes. Completion DSA images were then obtained from arterial anastomosis through right atrium. Those images revealed brisk antegrade flow throughout the AV graft, without residual intraluminal thrombus. There was only mild residual narrowing at venous anastomosis and adjacent to arterial anastomosis. There was no significant residual central vein stenosis. Patient tolerated the procedure well without apparent complication. The venous limb and arterial limb sheaths were removed and hemostasis was achieved utilizing 2-0 silk in a pursestring fashion. The patient was then transported from the angiography suite to the postanesthesia care unit in stable condition. Impression: 1. Successful, uneventful t-PA thrombolysis of left upper arm AV graft, as described. 2. Successful, uneventful balloon angioplasty of significant stenoses within left innominate vein, within left subclavian vein, at venous anastomosis, and at proximal graft arterial limb, adjacent to arterial anastomosis, as described.
[2016-05-26] MEDS: DARBEPOETIN ALFA 60 MCG/0.3 ML DISP.SYRIN. SQ SCH (21:00)
[2016-05-27] MEDS: PIPERACILLIN/TAZOBACTAM 2.25 GM in IV NORMAL SALINE 50ML 50 ML IV SCH ×2 (00:42→05:30)
[2016-05-27] MEDS: MORPHINE SULFATE 2 MG/ML DISP.SYRIN. IV PRN ×2 (01:24→06:14)
[2016-05-27 03:00] VITALS: BP 133/96
[2016-05-27] MEDS: DIPHENHYDRAMINE 50 MG/ML VIAL IVP PRN ×3 (05:30→18:20)
[2016-05-27] MEDS ORDERED: DIALYSIS PATIENT. MC PRN (08:00)
--- NOTE | 2016-05-27 08:02 | PDOC ---
Dialysis Progress Note Dialysis Note Dialysis Note Seen on Hemodialysis, tolerating treatment Well Vitals on Hemodialysis: 138/81 96 General Appearance: Awake: Alert Oriented x 3 Neck: No JVD or JVP Chest: CTA Kevin Heart: S1 S2; tachy Abdomen - Soft NTND Extremities - No Edema ESRD: Dialysis as below F 180 NR 2.5 Hrs (per pt preference) 2 K 2.5 Ca 140 Na 35 HC03 Qb 350 + Qd 500+ Heparin 0 Units Uf 0 Kgs or to dry weight as tolerated May give 25-50 gms of 25% Albumin if needed to maintain Hemodynamic stability Treatment plan reviewed and discussed with assistant service manager Vitals Vital Signs Vital Signs Date Time Temp Pulse Resp B/P Pulse Ox O2 Delivery O2 Flow Rate FiO2 05/27/16 06:14 16 Nasal Cannula 3.0 05/27/16 03:00 98.4 100 133/96 96 98.4 Labs Last Labs Laboratory Tests Test 05/25/16 08:10 05/26/16 09:30 White Blood Count 8.7x10^3/uL (4.0-11.0) 8.5x10^3/uL (4.0-11.0) Red Blood Count 1.88x10^6/uL (3.50-5.40) 3.41x10^6/uL (3.50-5.40) Hemoglobin 5.9g/dL (12.0-15.5) 10.5g/dL (12.0-15.5) Hematocrit 18.1% (36.0-47.0) 31.7% (36.0-47.0) Mean Corpuscular Volume 96fL (79-100) 93fL (79-100) Mean Corpuscular Hemoglobin 31pg (25-35) 31pg (25-35) Mean Corpuscular Hemoglobin Concent 32g/dL (31-37) 33g/dL (31-37) Red Cell Distribution Width 17.3% (11.5-14.5) 15.7% (11.5-14.5) Platelet Count 246x10^3/uL (140-400) 273x10^3/uL (140-400) Neutrophils (%) (Auto) 78% (31-73) 79% (31-73) Lymphocytes (%) (Auto) 9% (24-48) 9% (24-48) Monocytes (%) (Auto) 9% (0-9) 7% (0-9) Eosinophils (%) (Auto) 4% (0-3) 5% (0-3) Basophils (%) (Auto) 1% (0-3) 1% (0-3) Neutrophils # (Auto) 6.8x10^3uL (1.8-7.7) 6.7x10^3uL (1.8-7.7) Lymphocytes # (Auto) 0.8x10^3/uL (1.0-4.8) 0.7x10^3/uL (1.0-4.8) Monocytes # (Auto) 0.7x10^3/uL (0.0-1.1) 0.6x10^3/uL (0.0-1.1) Eosinophils # (Auto) 0.4x10^3/uL (0.0-0.7) 0.4x10^3/uL (0.0-0.7) Basophils # (Auto) 0.0x10^3/uL (0.0-0.2) 0.1x10^3/uL (0.0-0.2) Prothrombin Time 18.0SEC (11.7-14.0) 15.1SEC (11.7-14.0) Prothromb Time International Ratio 1.6 (0.8-1.1) 1.3 (0.8-1.1) Sodium Level 139mmol/L (136-145) 141mmol/L (136-145) Potassium Level 4.6mmol/L (3.5-5.1) 4.7mmol/L (3.5-5.1) Chloride Level 101mmol/L (98-107) 102mmol/L (98-107) Carbon Dioxide Level 30mmol/L (21-32) 30mmol/L (21-32) Anion Gap 8 (6-14) 9 (6-14) Blood Urea Nitrogen 24mg/dL (7-20) 25mg/dL (7-20) Creatinine 4.2mg/dL (0.6-1.0) 3.5mg/dL (0.6-1.0) Estimated GFR (Cockcroft-Gault) 12.8 15.8 Glucose Level 99mg/dL (70-99) 100mg/dL (70-99) Calcium Level 8.8mg/dL (8.5-10.1) 9.3mg/dL (8.5-10.1) Laboratory Tests Test 05/26/16 09:30 White Blood Count 8.5x10^3/uL (4.0-11.0) Red Blood Count 3.41x10^6/uL (3.50-5.40) Hemoglobin 10.5g/dL (12.0-15.5) Hematocrit 31.7% (36.0-47.0) Mean Corpuscular Volume 93fL (79-100) Mean Corpuscular Hemoglobin 31pg (25-35) Mean Corpuscular Hemoglobin Concent 33g/dL (31-37) Red Cell Distribution Width 15.7% (11.5-14.5) Platelet Count 273x10^3/uL (140-400) Neutrophils (%) (Auto) 79% (31-73) Lymphocytes (%) (Auto) 9% (24-48) Monocytes (%) (Auto) 7% (0-9) Eosinophils (%) (Auto) 5% (0-3) Basophils (%) (Auto) 1% (0-3) Neutrophils # (Auto) 6.7x10^3uL (1.8-7.7) Lymphocytes # (Auto) 0.7x10^3/uL (1.0-4.8) Monocytes # (Auto) 0.6x10^3/uL (0.0-1.1) Eosinophils # (Auto) 0.4x10^3/uL (0.0-0.7) Basophils # (Auto) 0.1x10^3/uL (0.0-0.2) Prothrombin Time 15.1SEC (11.7-14.0) Prothromb Time International Ratio 1.3 (0.8-1.1) Sodium Level 141mmol/L (136-145) Potassium Level 4.7mmol/L (3.5-5.1) Chloride Level 102mmol/L (98-107) Carbon Dioxide Level 30mmol/L (21-32) Anion Gap 9 (6-14) Blood Urea Nitrogen 25mg/dL (7-20) Creatinine 3.5mg/dL (0.6-1.0) Estimated GFR (Cockcroft-Gault) 15.8 Glucose Level 100mg/dL (70-99) Calcium Level 9.3mg/dL (8.5-10.1) Assessment Assessment Problems Medical Problems: (1) Abdominal pain Status: Acute (2) Hip fracture, right Status: Acute (3) Infection and inflammatory reaction due to internal right hip prosthesis, subsequent encounter Status: Acute (4) Intractable abdominal pain Status: Acute (5) Nausea & vomiting Status: Acute Problems: Plan Plan of Care Problems Medical Problems: (1) Abdominal pain Status: Acute (2) Hip fracture, right Status: Acute (3) Infection and inflammatory reaction due to internal right hip prosthesis, subsequent encounter Status: Acute (4) Intractable abdominal pain Status: Acute (5) Nausea & vomiting Status: Acute VALERY SOARES MD May 27, 2016 08:02
[2016-05-27] MEDS: SENNOSIDES/DOCUSATE 8.6/50MG TABLET. PO SCH (09:00)
[2016-05-27] MEDS: POLYETHYLENE GLYCOL 3350 17 GM PACKET. PO SCH ×2 (09:00→21:00)
[2016-05-27] MEDS: FENTANYL PF 100 MCG/2 ML VIAL. IV PRN ×4 (09:14→21:47)
[2016-05-27 09:17] LABS: BASO # 0.1 x10^3/uL (0.0-0.2); BASO % 1 % (0-3); EOS % 4 % (0-3); HEMATOCRIT 27.3 % (36.0-47.0); HEMOGLOBIN 9.1 g/dL (12.0-15.5); LYMPH # 0.6 x10^3/uL (1.0-4.8); LYMPH % 7 % (24-48); MEAN CORPUSCULAR HEMOGLOBIN 31 pg (25-35); MEAN CORPUSCULAR HGB CONC 33 g/dL (31-37); MEAN CORPUSCULAR VOLUME 93 fL (79-100); MONO % 8 % (0-9); NEUT % 81 % (31-73); PLATELET COUNT 250 x10^3/uL (140-400); RED BLOOD COUNT 2.92 x10^6/uL (3.50-5.40); RED CELL DISTRIBUTION WIDTH 16.2 % (11.5-14.5); WHITE BLOOD COUNT 7.6 x10^3/uL (4.0-11.0)
[2016-05-27 09:25] LABS: INR 1.3 (0.8-1.1); PROTHROMBIN TIME PATIENT 15.6 SEC (11.7-14.0)
--- NOTE | 2016-05-27 09:43 | PDOC ---
Infectious Disease Note Vital Sign Vital Signs Vital Signs Date Time Temp Pulse Resp B/P Pulse Ox O2 Delivery O2 Flow Rate FiO2 05/27/16 09:14 16 Nasal Cannula 3.0 05/27/16 03:00 98.4 100 133/96 96 98.4 Labs Lab Laboratory Tests Test 05/27/16 09:05 White Blood Count 7.6x10^3/uL (4.0-11.0) Red Blood Count 2.92x10^6/uL (3.50-5.40) Hemoglobin 9.1g/dL (12.0-15.5) Hematocrit 27.3% (36.0-47.0) Mean Corpuscular Volume 93fL (79-100) Mean Corpuscular Hemoglobin 31pg (25-35) Mean Corpuscular Hemoglobin Concent 33g/dL (31-37) Red Cell Distribution Width 16.2% (11.5-14.5) Platelet Count 250x10^3/uL (140-400) Neutrophils (%) (Auto) 81% (31-73) Lymphocytes (%) (Auto) 7% (24-48) Monocytes (%) (Auto) 8% (0-9) Eosinophils (%) (Auto) 4% (0-3) Basophils (%) (Auto) 1% (0-3) Neutrophils # (Auto) 6.1x10^3uL (1.8-7.7) Lymphocytes # (Auto) 0.6x10^3/uL (1.0-4.8) Monocytes # (Auto) 0.6x10^3/uL (0.0-1.1) Eosinophils # (Auto) 0.3x10^3/uL (0.0-0.7) Basophils # (Auto) 0.1x10^3/uL (0.0-0.2) Prothrombin Time 15.6SEC (11.7-14.0) Prothromb Time International Ratio 1.3 (0.8-1.1) Objective Assessment Pulmonary infiltrate sec to pul vascular congetion ESRD H/O Hip fracture Access problem Chronic pain syndrome Plan Plan of Care d/c zosyn no need for antibiotics no need for termite helper iv access from ID standpoint d/w dr Leesa Mcintosh d/w KIRSTIE Acosta MD May 27, 2016 09:43
--- NOTE | 2016-05-27 10:30 | PDOC ---
PROGRESS NOTES Chief Complaint Chief Complaint after hip replacement with rib fx S/P code blue 1. Abdominal pain; chronic, unclear etiology 2. Narcotic dependence. 3. Hx osteomyelitis, and replaced hip hardware. 4. elevated Alk Phos; isolated. 5. ESRD: HD tts 6. Anemia; severe, 2/2 ESRD. 7. acute resp failure with fluid overloaded with ESRD and possible PNA 8. left ARM AVF thrombosis 9. non compliance, wants to go home if not getting pain meds 10.HTN with hypotention now History of Present Illness History of Present Illness she declines transfer to LTAC, want home w/ home health, not able to transition, on iv abx, needs full assist, req. IV pain meds, does not look well - PRN duonebs breathing treatment - cont supplemental O2 - s/p thrombectomy of the L arm - Pulmonology following, - PTOT, she has a wheelchair at home, she is assist to chair now, - cont narcotics for hip and rib pain - cont IV Zofran for nausea - cont Benadryl for itchiness cont zosyn , repeated cxr left femoral HD cath HD today recent 2 u PRBC transfusion 05/25 a. she has refused PTOT, REFUSE po pain meds, r Vitals Vitals Vital Signs Date Time Temp Pulse Resp B/P Pulse Ox O2 Delivery O2 Flow Rate FiO2 05/27/16 09:14 16 Nasal Cannula 3.0 05/27/16 03:00 98.4 100 133/96 96 98.4 Physical Exam General: Alert, Oriented X3, Cooperative, No acute distress, Other (lethargic after HD) Heart: Regular rate, Normal S1, Normal S2, No murmurs, Gallops Lungs: Other (few crackles post) Abdomen: Normal bowel sounds, Soft, No tenderness, No hepatosplenomegaly, No masses Extremities: No edema Skin: No rashes Labs LABS Laboratory Tests Test 05/27/16 09:05 White Blood Count 7.6x10^3/uL (4.0-11.0) Red Blood Count 2.92x10^6/uL (3.50-5.40) Hemoglobin 9.1g/dL (12.0-15.5) Hematocrit 27.3% (36.0-47.0) Mean Corpuscular Volume 93fL (79-100) Mean Corpuscular Hemoglobin 31pg (25-35) Mean Corpuscular Hemoglobin Concent 33g/dL (31-37) Red Cell Distribution Width 16.2% (11.5-14.5) Platelet Count 250x10^3/uL (140-400) Neutrophils (%) (Auto) 81% (31-73) Lymphocytes (%) (Auto) 7% (24-48) Monocytes (%) (Auto) 8% (0-9) Eosinophils (%) (Auto) 4% (0-3) Basophils (%) (Auto) 1% (0-3) Neutrophils # (Auto) 6.1x10^3uL (1.8-7.7) Lymphocytes # (Auto) 0.6x10^3/uL (1.0-4.8) Monocytes # (Auto) 0.6x10^3/uL (0.0-1.1) Eosinophils # (Auto) 0.3x10^3/uL (0.0-0.7) Basophils # (Auto) 0.1x10^3/uL (0.0-0.2) Prothrombin Time 15.6SEC (11.7-14.0) Prothromb Time International Ratio 1.3 (0.8-1.1) Review of Systems Review of Systems pain, nausea, lethargy she feels much better, per her recent Assessment and Plan Assessmemt and Plan Problems Medical Problems: (1) Abdominal pain Status: Acute (2) Hip fracture, right Status: Acute (3) Infection and inflammatory reaction due to internal right hip prosthesis, subsequent encounter Status: Acute (4) Intractable abdominal pain Status: Acute (5) Nausea & vomiting Status: Acute Problems: Comment Review of Relevant I have reviewed the following items lynnette (where applicable) has been applied. Labs Laboratory Tests Test 05/26/16 09:30 05/27/16 09:05 White Blood Count 8.5x10^3/uL (4.0-11.0) 7.6x10^3/uL (4.0-11.0) Red Blood Count 3.41x10^6/uL (3.50-5.40) 2.92x10^6/uL (3.50-5.40) Hemoglobin 10.5g/dL (12.0-15.5) 9.1g/dL (12.0-15.5) Hematocrit 31.7% (36.0-47.0) 27.3% (36.0-47.0) Mean Corpuscular Volume 93fL (79-100) 93fL (79-100) Mean Corpuscular Hemoglobin 31pg (25-35) 31pg (25-35) Mean Corpuscular Hemoglobin Concent 33g/dL (31-37) 33g/dL (31-37) Red Cell Distribution Width 15.7% (11.5-14.5) 16.2% (11.5-14.5) Platelet Count 273x10^3/uL (140-400) 250x10^3/uL (140-400) Neutrophils (%) (Auto) 79% (31-73) 81% (31-73) Lymphocytes (%) (Auto) 9% (24-48) 7% (24-48) Monocytes (%) (Auto) 7% (0-9) 8% (0-9) Eosinophils (%) (Auto) 5% (0-3) 4% (0-3) Basophils (%) (Auto) 1% (0-3) 1% (0-3) Neutrophils # (Auto) 6.7x10^3uL (1.8-7.7) 6.1x10^3uL (1.8-7.7) Lymphocytes # (Auto) 0.7x10^3/uL (1.0-4.8) 0.6x10^3/uL (1.0-4.8) Monocytes # (Auto) 0.6x10^3/uL (0.0-1.1) 0.6x10^3/uL (0.0-1.1) Eosinophils # (Auto) 0.4x10^3/uL (0.0-0.7) 0.3x10^3/uL (0.0-0.7) Basophils # (Auto) 0.1x10^3/uL (0.0-0.2) 0.1x10^3/uL (0.0-0.2) Prothrombin Time 15.1SEC (11.7-14.0) 15.6SEC (11.7-14.0) Prothromb Time International Ratio 1.3 (0.8-1.1) 1.3 (0.8-1.1) Sodium Level 141mmol/L (136-145) Potassium Level 4.7mmol/L (3.5-5.1) Chloride Level 102mmol/L (98-107) Carbon Dioxide Level 30mmol/L (21-32) Anion Gap 9 (6-14) Blood Urea Nitrogen 25mg/dL (7-20) Creatinine 3.5mg/dL (0.6-1.0) Estimated GFR (Cockcroft-Gault) 15.8 Glucose Level 100mg/dL (70-99) Calcium Level 9.3mg/dL (8.5-10.1) Laboratory Tests Test 05/27/16 09:05 White Blood Count 7.6x10^3/uL (4.0-11.0) Red Blood Count 2.92x10^6/uL (3.50-5.40) Hemoglobin 9.1g/dL (12.0-15.5) Hematocrit 27.3% (36.0-47.0) Mean Corpuscular Volume 93fL (79-100) Mean Corpuscular Hemoglobin 31pg (25-35) Mean Corpuscular Hemoglobin Concent 33g/dL (31-37) Red Cell Distribution Width 16.2% (11.5-14.5) Platelet Count 250x10^3/uL (140-400) Neutrophils (%) (Auto) 81% (31-73) Lymphocytes (%) (Auto) 7% (24-48) Monocytes (%) (Auto) 8% (0-9) Eosinophils (%) (Auto) 4% (0-3) Basophils (%) (Auto) 1% (0-3) Neutrophils # (Auto) 6.1x10^3uL (1.8-7.7) Lymphocytes # (Auto) 0.6x10^3/uL (1.0-4.8) Monocytes # (Auto) 0.6x10^3/uL (0.0-1.1) Eosinophils # (Auto) 0.3x10^3/uL (0.0-0.7) Basophils # (Auto) 0.1x10^3/uL (0.0-0.2) Prothrombin Time 15.6SEC (11.7-14.0) Prothromb Time International Ratio 1.3 (0.8-1.1) Medications Current Medications Ondansetron HCl (Zofran) 4 mg 1X ONCE IV Last administered on 05/15/16 19:17 ; Start 05/15/16 at 19:00; Stop 05/15/16 at 19:01; Status DC Morphine Sulfate 4 mg 1X ONCE IV Last administered on 05/15/16 19:19; Start 05/15/16 at 19:00; Stop 05/15/16 at 19:01; Status DC Hydralazine HCl (Apresoline) 10 mg 1X ONCE IVP Last administered on 05/15/16 19:21; Start 05/15/16 at 19:00; Stop 05/15/16 at 19:01; Status DC Lorazepam (Ativan) 1 mg 1X ONCE PO Last administered on 05/15/16 20:04; Start 05/15/16 at 19:45; Stop 05/15/16 at 19:46; Status DC Alprazolam (Xanax) 2 mg PRN TID PRN PO ANXIETY / AGITATION; Start 05/15/16 at 20:45; Stop 05/15/16 at 20:47; Status DC Amlodipine Besylate (Norvasc) 10 mg DAILY PO Last administered on 05/26/16 08: 39; Start 05/16/16 at 09:00 Hydralazine HCl (Apresoline) 50 mg TID PO Last administered on 05/26/16 20:46; Start 05/16/16 at 09:00 Ondansetron HCl (Zofran Odt) 4 mg PRN Q8HRS PRN PO NAUSEA; Start 05/15/16 at 20 :45; Stop 05/21/16 at 10:18; Status DC Oxycodone/ Acetaminophen (Percocet 7.5/ 325) 1 tab PRN Q8HRS PRN PO PAIN; Start 05/15/16 at 20:45; Status Cancel Metoprolol Succinate (Toprol Xl) 200 mg DAILY PO Last administered on 05/26/16 08:40; Start 05/16/16 at 09:00 Alprazolam (Xanax) 2 mg PRN TID PRN PO ANXIETY / AGITATION Last administered on 05/25/16 12:33; Start 05/15/16 at 20:47 Morphine Sulfate 4 mg 1X ONCE IV Last administered on 05/15/16 21:13; Start 05/15/16 at 21:00; Stop 05/15/16 at 21:01; Status DC Ondansetron HCl (Zofran) 4 mg 1X ONCE IV Last administered on 05/15/16 21:08 ; Start 05/15/16 at 21:00; Stop 05/15/16 at 21:01; Status DC Labetalol HCl (Normodyne) 20 mg PRN Q6HRS PRN IVP HYPERTENSION, SEE COMMENTS Last administered on 05/25/16 10:08; Start 05/15/16 at 23:30 Lorazepam (Ativan) 1 mg PRN Q6HRS PRN IV ANXIETY / AGITATION Last administered on 05/16/16 20:22; Start 05/15/16 at 23:30; Stop 05/16/16 at 22:44; Status DC Morphine Sulfate 2 mg PRN Q2HR PRN IV PAIN Last administered on 05/16/16 10:52 ; Start 05/15/16 at 23:30; Stop 05/16/16 at 11:42; Status DC Morphine Sulfate 4 mg PRN Q2HR PRN IV PAIN; Start 05/15/16 at 23:30; Stop 05/16 at 11:42; Status DC Diphenhydramine HCl (Benadryl) 50 mg PRN Q6HRS PRN IVP ITCHING Last administered on 05/16/16 20:23; Start 05/15/16 at 23:30; Stop 05/16/16 at 22:44 ; Status DC Morphine Sulfate 1 mg PRN Q2HR PRN IV PAIN Last administered on 05/17/16 18:38 ; Start 05/16/16 at 11:45; Stop 05/21/16 at 10:18; Status DC Diphenhydramine HCl (Benadryl) 25 mg PRN Q8HRS PRN IVP ITCHING Last administered on 05/18/16 04:54; Start 05/16/16 at 23:30; Stop 05/18/16 at 15:51 ; Status DC Lorazepam (Ativan) 0.5 mg PRN Q8HRS PRN IV ANXIETY / AGITATION Last administered on 05/26/16 08:42; Start 05/16/16 at 23:30 Metoclopramide HCl (Reglan) 5 mg PRN Q8HRS PRN IV NAUSEA/VOMITING Last administered on 05/22/16 19:45; Start 05/16/16 at 22:45 Polyethylene Glycol (miraLAX PACKET) 17 gm BID PO ; Start 05/17/16 at 09:00 Lidocaine HCl 2 ml 2 ml STK-MED ONCE .ROUTE ; Start 05/17/16 at 11:20; Stop at 11:21; Status DC Sodium Chloride (Iv Sodium Chloride 0.9% 1000ml Bag) 1,000 ml @ 1,000 mls/hr Q1H PRN IV hypotension; Start 05/17/16 at 12:42; Stop 05/17/16 at 18:41; Status DC Diphenhydramine HCl (Benadryl) 25 mg 1X PRN PRN IV ITCHING; Start 05/17/16 at 12:45; Stop 05/18/16 at 12:44; Status DC Diphenhydramine HCl (Benadryl) 25 mg 1X PRN PRN IV ITCHING; Start 05/17/16 at 12:45; Stop 05/18/16 at 12:44; Status DC Info (PHARMACY MONITORING -- do not chart) 1 each PRN DAILY PRN MC SEE COMMENTS ; Start 05/17/16 at 12:45; Status UNV Info 1 each 1 each PRN DAILY PRN MC SEE COMMENTS; Start 05/17/16 at 12:45; Status UNV Morphine Sulfate/ Ketorolac Tromethamine/ Ropivacaine/ Epinephrine HCl/ Sodium Chloride (Morphine 5mg Syringe/Toradol/ Naropin 0.5%/ Adrenalin/Iv Sodium Chloride 0.9% 100ml) 100.5 ml @ 100.5 mls/ hr 1X PERIOP ONCE INT ART Last administered on 05/18/16 08:20; Start 05/18/16 at 06:00; Stop 05/18/16 at 06:59 ; Status DC Ondansetron HCl (Zofran) 4 mg PRN Q6HRS PRN IV Nausea; Start 05/18/16 at 07:00 ; Stop 05/19/16 at 06:59; Status DC Fentanyl Citrate (Fentanyl 2ml Vial) 25 mcg PRN Q5MIN PRN IV MILD PAIN Last administered on 05/18/16 16:42; Start 05/18/16 at 07:00; Stop 05/19/16 at 06:59 ; Status DC Fentanyl Citrate (Fentanyl 2ml Vial) 50 mcg PRN Q5MIN PRN IV MODERATE PAIN Last administered on 05/19/16 02:10; Start 05/18/16 at 07:00; Stop 05/19/16 at 06 :59; Status DC Morphine Sulfate 1 mg PRN Q10MIN PRN IV SEVERE PAIN; Start 05/18/16 at 07:00; Stop 05/19/16 at 06:59; Status DC Lidocaine HCl 2 ml 1X PRN PRN ID IV START; Start 05/18/16 at 07:00; Stop at 06:59; Status DC Hydromorphone HCl (Dilaudid) 0.5 mg PRN Q10MIN PRN IV SEVERE PAIN, Second choice Last administered on 05/19/16 00:53; Start 05/18/16 at 07:00; Stop at 06:59; Status DC Prochlorperazine Edisylate 5 mg 5 mg PACU PRN PRN IV NAUSEA; Start 05/18/16 at 07:00; Stop 05/19/16 at 06:59; Status DC Sodium Chloride (Iv Sodium Chloride 0.9% 1000ml Bag) 1,000 ml @ 30 mls/hr Q24H IV ; Start 05/18/16 at 07:00; Stop 05/19/16 at 07:48; Status DC Warfarin Sodium (Coumadin) 5 mg 1X ONCE PO Last administered on 05/17/16 16: 31; Start 05/17/16 at 17:00; Stop 05/17/16 at 17:01; Status DC Acetaminophen/ Hydrocodone Bitart (Lortab 7.5/325) 2 tab 1X ONCE PO ; Start at 05:30; Stop 05/18/16 at 05:31; Status Cancel Acetaminophen/ Hydrocodone Bitart 2 tab 2 tab 1X PREOP PRN PO PRIOR TO PROCEDURE; Start 05/18/16 at 06:00; Stop 05/18/16 at 18:00; Status DC Cefazolin Sodium/ Dextrose 50 ml @ 100 mls/hr 1X PREOP PRN IV PRIOR TO PROCEDURE; Start 05/18/16 at 06:00; Stop 05/18/16 at 18:00; Status DC Morphine Sulfate/ Ketorolac Tromethamine/ Ropivacaine/ Epinephrine HCl/ Sodium Chloride (Morphine 5mg Syringe/Toradol/ Naropin 0.5%/ Adrenalin/Iv Sodium Chloride 0.9% 50ml) 100.5 ml @ 100.5 mls/ hr 1X PERIOP ONCE INT ART ; Start at 06:00; Stop 05/18/16 at 06:59; Status Cancel Dexamethasone Sodium Phosphate (Decadron) 20 mg STK-MED ONCE .ROUTE ; Start at 06:57; Stop 05/18/16 at 06:58; Status DC Ondansetron HCl 4 mg 4 mg STK-MED ONCE .ROUTE ; Start 05/18/16 at 06:57; Stop at 06:58; Status DC Propofol (Diprivan) 20 ml @ As Directed STK-MED ONCE IV ; Start 05/18/16 at 06: 57; Stop 05/18/16 at 06:58; Status DC Lidocaine HCl 100 mg STK-MED ONCE .ROUTE ; Start 05/18/16 at 06:57; Stop at 06:58; Status DC Fentanyl Citrate (Fentanyl 5ml Vial) 250 mcg STK-MED ONCE .ROUTE ; Start at 06:57; Stop 05/18/16 at 06:58; Status DC Midazolam HCl (Versed) 2 mg STK-MED ONCE .ROUTE ; Start 05/18/16 at 06:58; Stop 05/18/16 at 06:59; Status DC Rocuronium [place] 50 mg 50 mg STK-MED ONCE .ROUTE ; Start 05/18/16 at 06:58; Stop 05/18/16 at 06:59; Status DC Acetaminophen 100 ml @ As Directed STK-MED ONCE IV ; Start 05/18/16 at 07:13; Stop 05/18/16 at 07:14; Status DC Sodium Chloride 500 ml @ 30 mls/hr [id number] IV Last administered on 05/18/16t 07:45; Start 05/18/16 at 07:45; Stop 05/19/16 at 07:48; Status DC Cefazolin Sodium (Ancef 1gm Ivpb For Omni) 50 ml @ As Directed STK-MED ONCE IV ; Start 05/18/16 at 07:45; Stop 05/18/16 at 07:46; Status DC Fentanyl Citrate (Fentanyl 5ml Vial) 250 mcg STK-MED ONCE .ROUTE ; Start at 08:27; Stop 05/18/16 at 08:28; Status DC Rocuronium [place] (Zemuron) 50 mg STK-MED ONCE .ROUTE ; Start 05/18/16 at 08:27 ; Stop 05/18/16 at 08:28; Status DC Morphine Sulfate 5 mg 5 mg STK-MED ONCE .ROUTE ; Start 05/18/16 at 08:59; Stop 05/18/16 at 09:00; Status DC Cefazolin Sodium (Ancef 1gm Ivpb For Omni) 50 ml @ 100 mls/hr 1X PREOP PRN IV PER PROTOCOL Last administered on 05/18/16 08:06; Start 05/18/16 at 09:30; Stop 05/19/16 at 09:29; Status DC Lisinopril (Prinivil) 20 mg DAILY PO Last administered on 05/26/16 08:40; Start 05/18/16 at 11:30 Albuterol Sulfate (Ventolin Neb Soln) 2.5 mg STK-MED ONCE .ROUTE ; Start at 11:24; Stop 05/18/16 at 11:25; Status DC Morphine Sulfate 10 mg STK-MED ONCE .ROUTE ; Start 05/18/16 at 11:55; Stop 05/18 at 11:56; Status DC Cefazolin Sodium/ Dextrose 2 gm 2 gm STK-MED ONCE IV ; Start 05/18/16 at 07:30; Stop 05/18/16 at 12:41; Status DC Cefazolin Sodium (Ancef 1gm Ivpb For Omni) 50 ml @ As Directed STK-MED ONCE IV ; Start 05/18/16 at 13:02; Stop 05/18/16 at 13:03; Status DC Fentanyl Citrate (Fentanyl 5ml Vial) 250 mcg STK-MED ONCE .ROUTE ; Start at 13:27; Stop 05/18/16 at 13:28; Status DC Phenylephrine HCl 1 mg STK-MED ONCE IV ; Start 05/18/16 at 13:58; Stop 05/18/16 at 13:59; Status DC Insulin Human Regular (Novolin R Vial) 10 unit 1X ONCE IV ; Start 05/18/16 at 14:15; Stop 05/18/16 at 14:16; Status DC Acetaminophen/ Hydrocodone Bitart (Lortab 7.5/325) 1 tab PRN Q3HRS PRN PO PAIN ; Start 05/18/16 at 15:45; Stop 05/21/16 at 10:18; Status DC Acetaminophen/ Hydrocodone Bitart (Lortab 10/325) 1 tab PRN Q3HRS PRN PO PAIN; Start 05/18/16 at 15:45 Tramadol HCl (Ultram) 50 mg PRN QID PRN PO PAIN; Start 05/18/16 at 15:45; Stop 05/21/16 at 10:18; Status DC Oxycodone/ Acetaminophen (Percocet 5/325) 1 tab PRN Q3HRS PRN PO PAIN; Start at 15:45 Oxycodone/ Acetaminophen (Percocet 7.5/ 325) 1 tab PRN Q3HRS PRN PO PAIN; Start 05/18/16 at 15:45 Tramadol HCl (Ultram) 100 mg PRN Q3HRS PRN PO PAIN; Start 05/18/16 at 15:45 Morphine Sulfate 2 mg PRN Q1HR PRN IV PAIN; Start 05/18/16 at 15:45; Stop at 10:40; Status DC Fentanyl Citrate (Fentanyl 2ml Vial) 25 mcg PRN Q1HR PRN IV PAIN Last administered on 05/20/16 21:37; Start 05/18/16 at 15:45; Stop 05/21/16 at 10:18; Status DC Diphenhydramine HCl (Benadryl) 25 mg PRN Q6HRS PRN IV ITCHING Last administered on 05/21/16 10:08; Start 05/18/16 at 15:45; Stop 05/21/16 at 10:43; Status DC Warfarin Sodium (Coumadin Per Pharmacy) 1 each PRN DAILY PRN MC SEE COMMENTS Last administered on 05/26/16 16:53; Start 05/18/16 at 15:45 Multivitamins/ Calcium (Thera M Plus) 1 tab DAILY PO Last administered on 08:39; Start 05/19/16 at 09:00 Senna/Docusate Sodium (Senna Plus) 1 tab DAILY PO Last administered on 07:52; Start 05/19/16 at 09:00 Ferrous Sulfate 325 mg 325 mg BIDWMEALS PO Last administered on 05/26/16 08:39 ; Start 05/18/16 at 17:00 Dextrose/Sodium Chloride (Iv D5% - 03/22 NS) 1,000 ml @ 100 mls/hr Q10H IV ; Start 05/18/16 at 15:31; Stop 05/19/16 at 07:48; Status DC Magnesium Hydroxide (Milk Of Magnesia) 2,400 mg 1X PRN PRN PO CONSTIPATION; Start 05/19/16 at 06:00; Stop 05/20/16 at 05:59; Status DC Bisacodyl (Dulcolax Supp) 10 mg 1X PRN PRN AL CONSTIPATION; Start 05/19/16 at 16 :00; Stop 05/20/16 at 15:59; Status DC Acetaminophen (Tylenol) 650 mg PRN Q4HRS PRN PO MILD PAIN / TEMP Last administered on 05/25/16 12:33; Start 05/18/16 at 15:45 Zolpidem Tartrate (Ambien) 5 mg PRN QHS PRN PO INSOMNIA, MAY REPEAT IN 1HR Last administered on 05/19/16 21:06; Start 05/18/16 at 15:45 Calcium Carbonate/ Glycine (Tums) 500 mg PRN QID PRN PO INDIGESTION; Start at 15:45 Morphine Sulfate 4 mg PRN Q1HR PRN IV PAIN Last administered on 05/21/16 08:11 ; Start 05/18/16 at 15:45; Stop 05/21/16 at 10:40; Status DC Morphine Sulfate 6 mg PRN Q1HR PRN IV PAIN Last administered on 05/20/16 20:04 ; Start 05/18/16 at 15:45; Stop 05/21/16 at 10:18; Status DC Morphine Sulfate 8 mg PRN Q1HR PRN IV PAIN; Start 05/18/16 at 15:45; Stop at 10:18; Status DC Sodium Chloride (Normal Saline Flush) 10 ml QSHIFT PRN IV AFTER MEDS AND BLOOD DRAWS; Start 05/18/16 at 15:45; Stop 05/21/16 at 07:32; Status DC Fentanyl Citrate (Fentanyl 2ml Vial) 50 mcg PRN Q1HR PRN IV PAIN Last administered on 05/21/16 10:09; Start 05/18/16 at 15:45; Stop 05/21/16 at 10:40; Status DC Prochlorperazine Edisylate (Compazine) 10 mg PRN Q4HRS PRN IV NAUSEA/VOMITING; Start 05/18/16 at 15:45 Dextrose 12.5 gm 12.5 gm PRN Q15MIN PRN IV SEE COMMENTS; Start 05/18/16 at 15: 45 Cefazolin Sodium/ Sodium Chloride (Ancef/Iv Sodium Chloride 0.9% 50ml) 50 ml @ 100 mls/hr Q6H IV Last administered on 05/19/16 05:00; Start 05/18/16 at 16:00 ; Stop 05/19/16 at 04:29; Status DC Warfarin Sodium (Coumadin) 5 mg 1X WARF ONCE PO ; Start 05/18/16 at 16:00; Stop 05/18/16 at 16:01; Status DC Lidocaine/Sodium Bicarbonate 20 ml 20 ml STK-MED ONCE IJ ; Start 05/18/16 at 16: 51; Stop 05/18/16 at 16:52; Status DC Heparin Sodium/ Sodium Chloride 500 ml @ As Directed STK-MED ONCE .ROUTE ; Start 05/18/16 at 16:51; Stop 05/18/16 at 16:52; Status DC Heparin Sodium (Porcine) 66804 unit 10,000 unit STK-MED ONCE .ROUTE ; Start at 16:52; Stop 05/18/16 at 16:53; Status DC Sodium Chloride (Iv Sodium Chloride 0.9% 1000ml Bag) 1,000 ml @ 1,000 mls/hr Q1H PRN IV hypotension; Start 05/18/16 at 17:23; Stop 05/18/16 at 23:22; Status DC Diphenhydramine HCl (Benadryl) 75 mg 1X PRN PRN IV ITCHING; Start 05/18/16 at 17:30; Stop 05/19/16 at 17:29; Status DC Info (PHARMACY MONITORING -- do not chart) 1 each PRN DAILY PRN MC SEE COMMENTS Last administered on 05/24/16 11:02; Start 05/18/16 at 17:30 Info (PHARMACY MONITORING -- do not chart) 1 each PRN DAILY PRN MC SEE COMMENTS ; Start 05/18/16 at 17:30; Status UNV Lidocaine/Sodium Bicarbonate (Buffered Lidocaine 1%) 3 ml 1X ONCE IJ Last administered on 05/18/16 17:34; Start 05/18/16 at 17:30; Stop 05/18/16 at 17:34 ; Status DC Heparin Sodium/ Sodium Chloride 60 unit 1X ONCE IV ; Start 05/18/16 at 17:30; Stop 05/18/16 at 17:34; Status DC Insulin Aspart (Novolog Vial) 10 unit 1X ONCE SQ ; Start 05/18/16 at 18:30; Stop 05/18/16 at 18:31; Status Cancel Insulin Human Regular 10 unit 10 unit 1X ONCE IV ; Start 05/18/16 at 19:00; Stop 05/18/16 at 19:01; Status DC Propofol (Diprivan) 100 ml @ 0 mls/hr CONT PRN IV . Last administered on 02:10; Start 05/18/16 at 19:00; Stop 05/21/16 at 07:32; Status DC Darbepoetin Jude (Aranesp) 60 mcg WEEKLYHS SQ ; Start 05/19/16 at 21:00 Diphenhydramine HCl (Benadryl) 50 mg 1X ONCE IM Last administered on 05/19/16 13:27; Start 05/19/16 at 13:15; Stop 05/19/16 at 13:16; Status DC Warfarin Sodium (Coumadin - No Dose Today) 1 each 1X WARF ONCE MC ; Start at 16:00; Stop 05/19/16 at 16:01; Status DC Hydralazine HCl (Apresoline) 10 mg PRN Q4HRS PRN IVP ELEVATED BP, SEE COMMENTS Last administered on 05/24/16 21:55; Start 05/19/16 at 16:15 Amlodipine Besylate (Norvasc) 10 mg 1X ONCE PO Last administered on 05/19/16 17:34; Start 05/19/16 at 17:30; Stop 05/19/16 at 17:31; Status DC Lisinopril (Prinivil) 20 mg 1X ONCE PO Last administered on 05/19/16 17:34; Start 05/19/16 at 17:30; Stop 05/19/16 at 17:31; Status DC Metoprolol Succinate (Toprol Xl) 200 mg 1X ONCE PO Last administered on 17:34; Start 05/19/16 at 17:30; Stop 05/19/16 at 17:31; Status DC Lidocaine HCl 2 ml 2 ml STK-MED ONCE .ROUTE ; Start 05/20/16 at 08:19; Stop at 08:20; Status DC Sodium Chloride (Iv Sodium Chloride 0.9% 1000ml Bag) 1,000 ml @ 1,000 mls/hr Q1H PRN IV hypotension; Start 05/20/16 at 09:24; Stop 05/20/16 at 15:23; Status DC Diphenhydramine HCl (Benadryl) 25 mg 1X PRN PRN IV ITCHING Last administered on 05/20/16 09:36; Start 05/20/16 at 09:30; Stop 05/21/16 at 07:32; Status DC Diphenhydramine HCl (Benadryl) 25 mg 1X PRN PRN IV ITCHING Last administered on 05/20/16 09:59; Start 05/20/16 at 09:30; Stop 05/21/16 at 07:32; Status DC Sodium Chloride (Normal Saline Flush) 10 ml 1X PRN PRN IV AP catheter pack; Start 05/20/16 at 09:30; Stop 05/21/16 at 09:29; Status DC Sodium Chloride (Normal Saline Flush) 10 ml 1X PRN PRN 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; Start 05/20/16 at 09:30; Stop 05/21/16 at 09:29; Status DC Info (PHARMACY MONITORING -- do not chart) 1 each PRN DAILY PRN MC SEE COMMENTS ; Start 05/20/16 at 09:30; Stop 05/20/16 at 09:31; Status DC Info (PHARMACY MONITORING -- do not chart) 1 each PRN DAILY PRN MC SEE COMMENTS ; Start 05/20/16 at 09:30; Status Cancel Warfarin Sodium (Coumadin) 3 mg 1X WARF ONCE PO Last administered on 05/20/16 16:26; Start 05/20/16 at 16:00; Stop 05/20/16 at 16:01; Status DC Dextrose 25 gm STK-MED ONCE IV ; Start 05/19/16 at 12:00; Stop 05/20/16 at 16:10; Status DC Epinephrine HCl 1 mg STK-MED ONCE .ROUTE ; Start 05/19/16 at 12:00; Stop 05/20/16 at 16:10; Status DC Sodium Bicarbonate 50 meq STK-MED ONCE .ROUTE ; Start 05/19/16 at 12:00; Stop 05/20/16 at 16:10; Status DC Diphenhydramine HCl (Benadryl) 50 mg 1X ONCE IVP Last administered on 04:02; Start 05/21/16 at 04:00; Stop 05/21/16 at 10:18; Status DC Lidocaine HCl (Xylocaine-Mpf 1% Vial) 2 ml STK-MED ONCE .ROUTE ; Start 05/20/16 at 08:00; Stop 05/21/16 at 08:00; Status DC Fentanyl Citrate (Fentanyl 2ml Vial) 50 mcg PRN Q3HRS PRN IV PAIN Last administered on 05/27/16 09:14; Start 05/21/16 at 10:27 Morphine Sulfate 2 mg PRN Q3HRS PRN IV PAIN Last administered on 05/25/16 09:07 ; Start 05/21/16 at 10:27; Stop 05/25/16 at 11:44; Status DC Morphine Sulfate 4 mg PRN Q3HRS PRN IV PAIN Last administered on 05/24/16 17:16 ; Start 05/21/16 at 10:27; Stop 05/25/16 at 11:44; Status DC Diphenhydramine HCl (Benadryl) 50 mg PRN Q6HRS PRN IVP itching Last administered on 05/27/16 07:56; Start 05/21/16 at 10:30 Ondansetron HCl (Zofran) 4 mg PRN Q6HRS PRN IV NAUSEA/VOMITING Last administered on 05/25/16 12:33; Start 05/21/16 at 11:15 Warfarin Sodium 3 mg 3 mg 1X WARF ONCE PO Last administered on 05/21/16 15:08 ; Start 05/21/16 at 16:00; Stop 05/21/16 at 16:01; Status DC Sodium Chloride (Iv Sodium Chloride 0.9% 1000ml Bag) 1,000 ml @ 1,000 mls/hr Q1H PRN IV hypotension; Start 05/22/16 at 09:36; Stop 05/22/16 at 15:35; Status DC Diphenhydramine HCl (Benadryl) 25 mg 1X PRN PRN IV ITCHING Last administered on 05/22/16 16:52; Start 05/22/16 at 09:45; Stop 05/22/16 at 19:00; Status DC Sodium Chloride (Normal Saline Flush) 10 ml 1X PRN PRN IV AP catheter pack; Start 05/22/16 at 09:45; Stop 05/22/16 at 19:00; Status DC Sodium Chloride (Normal Saline Flush) 10 ml 1X PRN PRN 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; Start 05/22/16 at 09:45; Stop 05/22/16 at 19:00; Status DC Info (PHARMACY MONITORING -- do not chart) 1 each PRN DAILY PRN MC SEE COMMENTS ; Start 05/22/16 at 09:45; Status UNV Info (PHARMACY MONITORING -- do not chart) 1 each PRN DAILY PRN MC SEE COMMENTS ; Start 05/22/16 at 09:45; Status UNV Warfarin Sodium (Coumadin) 2 mg 1X WARF ONCE PO Last administered on 05/22/16 17:48; Start 05/22/16 at 16:00; Stop 05/22/16 at 16:01; Status DC Warfarin Sodium 2 mg 2 mg 1X WARF ONCE PO Last administered on 05/23/16 15:56 ; Start 05/23/16 at 16:00; Stop 05/23/16 at 16:01; Status DC Ceftriaxone Sodium/Sodium Chloride (Rocephin/Iv Sodium Chloride 0.9% 50ml) 50 ml @ 100 mls/hr Q24H IV Last administered on 05/23/16 15:13; Start 05/23/16 at 15:00; Stop 05/24/16 at 12:53; Status DC Albuterol/ Ipratropium (Duoneb) 3 ml RTQID NEB Last administered on 05/25/16 16 :46; Start 05/23/16 at 16:00; Stop 05/26/16 at 12:08; Status DC Warfarin Sodium (Coumadin) 2 mg 1X WARF ONCE PO ; Start 05/24/16 at 16:00; Stop 05/24/16 at 16:01; Status DC Ondansetron HCl (Zofran) 4 mg PRN Q6HRS PRN IV Nausea; Start 05/25/16 at 07:00; Stop 05/25/16 at 18:00; Status DC Fentanyl Citrate (Fentanyl 2ml Vial) 25 mcg PRN Q5MIN PRN IV MILD PAIN; Start 05/25/16 at 07:00; Stop 05/25/16 at 18:00; Status DC Fentanyl Citrate (Fentanyl 2ml Vial) 50 mcg PRN Q5MIN PRN IV MODERATE PAIN; Start 05/25/16 at 07:00; Stop 05/25/16 at 18:00; Status DC Morphine Sulfate 1 mg 1 mg PRN Q10MIN PRN IV SEVERE PAIN; Start 05/25/16 at 07: 00; Stop 05/25/16 at 18:00; Status DC Lactated Ringer's (Iv Lactated Ringers) 1,000 ml @ 30 mls/hr Q24H IV ; Start at 07:00; Stop 05/25/16 at 18:59; Status DC Lidocaine HCl 2 ml 1X PRN PRN ID IV START; Start 05/25/16 at 07:00; Stop at 18:00; Status DC Hydromorphone HCl (Dilaudid) 0.5 mg PRN Q10MIN PRN IV SEVERE PAIN, Second choice; Start 05/25/16 at 07:00; Stop 05/25/16 at 18:00; Status DC Piperacillin Sod/ Tazobactam Sod 1 each 1 each PRN DAILY PRN MC SEE COMMENTS; Start 05/24/16 at 13:00 Piperacillin Sod/ Tazobactam Sod 2.25 gm/Sodium Chloride 50 ml @ 100 mls/hr Q6HRS IV Last administered on 05/27/16 05:30; Start 05/24/16 at 13:00; Stop 05/27 at 09:38; Status DC Sodium Chloride (Iv Sodium Chloride 0.9% 1000ml Bag) 1,000 ml @ 1,000 mls/hr Q1H PRN IV hypotension; Start 05/24/16 at 13:14; Stop 05/24/16 at 19:13; Status DC Diphenhydramine HCl (Benadryl) 25 mg 1X PRN PRN IV ITCHING; Start 05/24/16 at 13 :15; Stop 05/24/16 at 14:09; Status DC Diphenhydramine HCl (Benadryl) 25 mg 1X PRN PRN IV ITCHING; Start 05/24/16 at 13 :15; Stop 05/24/16 at 14:09; Status DC Sodium Chloride (Normal Saline Flush) 10 ml 1X PRN PRN IV AP catheter pack; Start 05/24/16 at 13:15; Stop 05/25/16 at 13:14; Status DC Sodium Chloride 10 ml 10 ml 1X PRN PRN 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; Start 05/24/16 at 13 :15; Stop 05/25/16 at 13:14; Status DC Sodium Chloride (Iv Sodium Chloride 0.9% 1000ml Bag) 1,000 ml @ 400 mls/hr Q2H30M PRN IV PATENCY; Start 05/24/16 at 13:14; Stop 05/25/16 at 01:13; Status DC Info (PHARMACY MONITORING -- do not chart) 1 each PRN DAILY PRN MC SEE COMMENTS ; Start 05/24/16 at 13:15; Status UNV Diphenhydramine HCl 75 mg 75 mg 1X ONCE IV Last administered on 05/24/16 14:47 ; Start 05/24/16 at 14:15; Stop 05/24/16 at 14:18; Status DC Sodium Chloride (Iv Sodium Chloride 0.9% 1000ml Bag) 1,000 ml @ 1,000 mls/hr Q1H PRN IV hypotension; Start 05/25/16 at 08:17; Stop 05/25/16 at 14:16; Status DC Diphenhydramine HCl (Benadryl) 25 mg 1X PRN PRN IV ITCHING Last administered on 05/25/16 09:00; Start 05/25/16 at 08:30; Stop 05/26/16 at 08:29; Status DC Diphenhydramine HCl (Benadryl) 25 mg 1X PRN PRN IV ITCHING; Start 05/25/16 at 08 :30; Stop 05/26/16 at 08:29; Status DC Info (PHARMACY MONITORING -- do not chart) 1 each PRN DAILY PRN MC SEE COMMENTS ; Start 05/25/16 at 08:30; Status UNV Warfarin Sodium (Coumadin - No Dose Today) 1 each 1X WARF ONCE MC ; Start at 16:00; Stop 05/25/16 at 16:01; Status DC Diphenhydramine HCl (Benadryl) 25 mg 1X ONCE IVP Last administered on 12:34; Start 05/25/16 at 12:45; Stop 05/25/16 at 12:46; Status DC Morphine Sulfate 4 mg 4 mg PRN Q3HRS PRN IV PAIN Last administered on 05/26/16 11:33; Start 05/25/16 at 12:45; Stop 05/26/16 at 17:22; Status DC Lactated Ringer's (Iv Lactated Ringers) 1,000 ml @ 50 mls/hr Q20H IV ; Start at 13:00; Stop 05/26/16 at 12:59; Status DC Lidocaine HCl (Xylocaine-Mpf 1% Vial) 2 ml 1X PRN PRN ID FOR PIC LINE INSERTION ; Start 05/26/16 at 08:45; Stop 05/26/16 at 17:22; Status DC Sodium Chloride (Normal Saline Flush) 20 ml 1X PRN PRN IV PER PROTOCOL; Start 05/26/16 at 08:45; Stop 05/27/16 at 08:44; Status DC Lidocaine/ Prilocaine (Emla) 1 noelle 1X ONCE TP ; Start 05/26/16 at 08:45; Stop at 08:46; Status DC Warfarin Sodium (Coumadin) 3 mg 1X WARF ONCE PO ; Start 05/26/16 at 16:00; Stop 05/26/16 at 16:01; Status DC Ondansetron HCl 4 mg 4 mg STK-MED ONCE .ROUTE ; Start 05/26/16 at 11:54; Stop 05/26/16 at 11:55; Status DC Propofol (Diprivan) 20 ml @ As Directed STK-MED ONCE IV ; Start 05/26/16 at 11:54 ; Stop 05/26/16 at 11:55; Status DC Lidocaine HCl 100 mg STK-MED ONCE .ROUTE ; Start 05/26/16 at 11:54; Stop 05/26/16 at 11:55; Status DC Lidocaine/Sodium Bicarbonate 20 ml 20 ml STK-MED ONCE IJ ; Start 05/26/16 at 12: 02; Stop 05/26/16 at 17:22; Status DC Heparin Sodium/ Sodium Chloride 1,000 ml @ As Directed STK-MED ONCE .ROUTE ; Start 05/26/16 at 12:02; Stop 05/26/16 at 12:03; Status DC Iodixanol (Visipaque 320) 100 ml STK-MED ONCE .ROUTE ; Start 05/26/16 at 12:02; Stop 05/26/16 at 12:03; Status DC Albuterol Sulfate (Ventolin Neb Soln) 2.5 mg PRN QID PRN NEB SHORTNESS OF BREATH; Start 05/26/16 at 12:15 Alteplase, Recombinant (Cathflo) 4 mg 1X ONCE IV Last administered on 14:47; Start 05/26/16 at 12:30; Stop 05/26/16 at 12:33; Status DC Heparin Sodium/ Sodium Chloride 1,000 unit 1X ONCE IART Last administered on 14:48; Start 05/26/16 at 13:00; Stop 05/26/16 at 13:01; Status DC Heparin Sodium/ Sodium Chloride 1,000 unit 1X ONCE IART Last administered on 14:49; Start 05/26/16 at 13:00; Stop 05/26/16 at 13:01; Status DC Lidocaine/Sodium Bicarbonate (Buffered Lidocaine 1%) 20 ml 1X ONCE IJ Last administered on 05/26/16 14:48; Start 05/26/16 at 13:00; Stop 05/26/16 at 13:01; Status DC Iodixanol (Visipaque 320) 100 ml 1X ONCE IART Last administered on 05/26/16 14 :48; Start 05/26/16 at 13:00; Stop 05/26/16 at 13:01; Status DC Info (Do NOT chart on this entry -- for MONITORING) 1 each PRN DAILY PRN MC SEE COMMENTS; Start 05/26/16 at 13:00; Stop 05/28/16 at 12:59 Heparin Sodium (Porcine) 10,000 unit STK-MED ONCE .ROUTE ; Start 05/26/16 at 13: 27; Stop 05/26/16 at 13:28; Status DC Heparin Sodium (Porcine) 2,500 unit 1X ONCE IV Last administered on 05/26/16t 14:53; Start 05/26/16 at 13:30; Stop 05/26/16 at 13:38; Status DC Sevoflurane (Ultane) 30 ml STK-MED ONCE IH ; Start 05/26/16 at 15:11; Stop at 15:12; Status DC Ondansetron HCl (Zofran) 4 mg PRN Q6HRS PRN IV Nausea; Start 05/26/16 at 15:30; Stop 05/27/16 at 15:29 Fentanyl Citrate (Fentanyl 2ml Vial) 25 mcg PRN Q5MIN PRN IV MILD PAIN; Start 05/26/16 at 15:30; Stop 05/27/16 at 15:29 Fentanyl Citrate (Fentanyl 2ml Vial) 50 mcg PRN Q5MIN PRN IV MODERATE PAIN; Start 05/26/16 at 15:30; Stop 05/27/16 at 15:29 Morphine Sulfate 1 mg 1 mg PRN Q10MIN PRN IV SEVERE PAIN Last administered on 16:02; Start 05/26/16 at 15:30; Stop 05/26/16 at 17:22; Status DC Lactated Ringer's (Iv Lactated Ringers) 1,000 ml @ 0 mls/hr Q0M IV ; Start 05/26 at 15:21; Stop 05/26/16 at 17:22; Status DC Lidocaine HCl 2 ml 1X PRN PRN ID IV START; Start 05/26/16 at 15:30; Stop at 17:22; Status DC Hydromorphone HCl (Dilaudid) 0.5 mg PRN Q10MIN PRN IV SEV PAIN,Second choice; Start 05/26/16 at 15:30; Stop 05/26/16 at 17:22; Status DC Morphine Sulfate 2 mg PRN Q4HRS PRN IV PAIN Last administered on 05/27/16t 06:14 ; Start 05/26/16 at 18:30 Info (PHARMACY MONITORING -- do not chart) 1 each PRN DAILY PRN MC SEE COMMENTS ; Start 05/27/16 at 08:00; Status UNV Phenylephrine HCl 1 mg STK-MED ONCE IV ; Start 05/26/16 at 10:00; Stop 05/27/16 at 08:33; Status DC Glycopyrrolate (Robinul) 1 mg STK-MED ONCE .ROUTE ; Start 05/26/16 at 10:00; Stop 05/27/16 at 08:33; Status DC Active Scripts Active Zofran Odt (Ondansetron) 4 Mg Tab.rapdis 1 Tab SL Q8HRS PRN Reported Percocet 7.5-325 Mg Tablet (Oxycodone/Acetaminophen) 1 Each Tablet 1 Tab PO PRN Q8HRS PRN Xanax (Alprazolam) 0.25 Mg Tablet 2 Mg PO TID PRN Metoprolol Succinate ( Xl ) (Metoprolol Succinate) 200 Mg Tab.er.24h 1 Tab PO DAILY Hydralazine Hcl 50 Mg Tablet 1 Tab PO TID Amlodipine Besylate 10 Mg Tablet 1 Tab PO DAILY Vitals/I & O Vital Sign - Last 24 Hours 05/26/16 05/26/16 05/26/16 05/26/16 11:00 11:18 11:33 12:05 Temp 98.7 98.7 Pulse 106 Resp 16 B/P 151/104 Pulse Ox 98 98 98 98 O2 Delivery Nasal Cannula Nasal Cannula Nasal Cannula Nasal Cannula O2 Flow Rate 4.0 4.0 4.0 4.0 05/26/16 05/26/16 05/26/16 05/26/16 15:05 15:05 15:20 15:35 Temp 98.3 98.3 Pulse 100 98 102 Resp 20 20 20 B/P 119/78 120/73 126/76 Pulse Ox 98 99 92 O2 Delivery Mask Simple Mask Simple Mask Nasal Cannula O2 Flow Rate 10 10 10 2 05/26/16 05/26/16 05/26/16 05/26/16 15:50 15:52 15:59 16:00 Temp 97.5 98.2 97.5 98.2 Pulse 98 101 Resp 20 22 20 B/P 137/82 128/90 Pulse Ox 92 90 98 O2 Delivery Nasal Cannula Nasal Cannula Nasal Cannula Nasal Cannula O2 Flow Rate 3 2.0 3 3.0 05/26/16 05/26/16 05/26/16 05/26/16 16:02 16:15 16:30 16:34 Temp 98.0 98.0 Pulse 104 103 103 Resp 22 18 18 B/P 144/100 141/98 141/98 Pulse Ox 93 97 95 O2 Delivery Nasal Cannula Nasal Cannula Nasal Cannula O2 Flow Rate 3.0 3.0 05/26/16 05/26/16 05/26/16 05/26/16 16:45 17:00 17:16 17:22 Pulse 105 109 B/P 136/97 145/103 Pulse Ox 93 95 95 95 O2 Delivery Nasal Cannula Nasal Cannula Nasal Cannula Nasal Cannula O2 Flow Rate 3.0 3.0 3.0 3.0 05/26/16 05/26/16 05/26/16 05/26/16 17:30 18:00 18:23 18:55 Temp 98.4 98.4 Pulse 108 107 Resp 20 B/P 132/90 128/88 Pulse Ox 93 94 94 94 O2 Delivery Nasal Cannula Nasal Cannula Nasal Cannula Nasal Cannula O2 Flow Rate 3.0 3.0 3.0 3.0 05/26/16 05/26/16 05/26/16 05/26/16 19:00 20:00 20:00 20:46 Temp 98.0 97.9 98.0 97.9 Pulse 106 104 104 Resp 18 18 B/P 130/97 127/95 127/95 Pulse Ox 95 97 O2 Delivery Nasal Cannula Nasal Cannula Nasal Cannula O2 Flow Rate 3.0 3.0 3.0 05/26/16 05/26/16 05/27/16 05/27/16 20:47 23:00 01:24 01:55 Temp 97.4 97.4 Pulse 99 Resp 16 18 16 16 B/P 135/95 Pulse Ox 95 O2 Delivery Nasal Cannula Nasal Cannula Nasal Cannula Nasal Cannula O2 Flow Rate 3.0 3.0 3.0 3.0 05/27/16 05/27/16 05/27/16 03:00 06:14 09:14 Temp 98.4 98.4 Pulse 100 Resp 19 16 16 B/P 133/96 Pulse Ox 96 O2 Delivery Nasal Cannula Nasal Cannula Nasal Cannula O2 Flow Rate 3.0 3.0 3.0 Intake and Output 05/26/16 05/26/16 05/27/16 15:00 23:00 07:00 Intake Total 300 ml 1100 ml Output Total 51 ml Balance 249 ml 1100 ml DIONICIO TIMMONS MD May 27, 2016 10:30
--- NOTE | 2016-05-27 10:59 | PDOC ---
PULMONARY PROGRESS NOTES Subjective no resp distress Vitals Vital Signs Date Time Temp Pulse Resp B/P Pulse Ox O2 Delivery O2 Flow Rate FiO2 05/27/16 09:14 16 Nasal Cannula 3.0 05/27/16 03:00 98.4 100 133/96 96 98.4 ROS: No Nausea, No Abdominal Pain, No Increase Cough General: Alert Lungs: Other (few crackles post) Cardiovascular: S1, S2 Abdomen: Soft, Non-tender Neuro Exam: Alert Extremities: No Edema Skin: Warm Labs Laboratory Tests Test 05/26/16 09:30 05/27/16 09:05 White Blood Count 8.5x10^3/uL (4.0-11.0) 7.6x10^3/uL (4.0-11.0) Red Blood Count 3.41x10^6/uL (3.50-5.40) 2.92x10^6/uL (3.50-5.40) Hemoglobin 10.5g/dL (12.0-15.5) 9.1g/dL (12.0-15.5) Hematocrit 31.7% (36.0-47.0) 27.3% (36.0-47.0) Mean Corpuscular Volume 93fL (79-100) 93fL (79-100) Mean Corpuscular Hemoglobin 31pg (25-35) 31pg (25-35) Mean Corpuscular Hemoglobin Concent 33g/dL (31-37) 33g/dL (31-37) Red Cell Distribution Width 15.7% (11.5-14.5) 16.2% (11.5-14.5) Platelet Count 273x10^3/uL (140-400) 250x10^3/uL (140-400) Neutrophils (%) (Auto) 79% (31-73) 81% (31-73) Lymphocytes (%) (Auto) 9% (24-48) 7% (24-48) Monocytes (%) (Auto) 7% (0-9) 8% (0-9) Eosinophils (%) (Auto) 5% (0-3) 4% (0-3) Basophils (%) (Auto) 1% (0-3) 1% (0-3) Neutrophils # (Auto) 6.7x10^3uL (1.8-7.7) 6.1x10^3uL (1.8-7.7) Lymphocytes # (Auto) 0.7x10^3/uL (1.0-4.8) 0.6x10^3/uL (1.0-4.8) Monocytes # (Auto) 0.6x10^3/uL (0.0-1.1) 0.6x10^3/uL (0.0-1.1) Eosinophils # (Auto) 0.4x10^3/uL (0.0-0.7) 0.3x10^3/uL (0.0-0.7) Basophils # (Auto) 0.1x10^3/uL (0.0-0.2) 0.1x10^3/uL (0.0-0.2) Prothrombin Time 15.1SEC (11.7-14.0) 15.6SEC (11.7-14.0) Prothromb Time International Ratio 1.3 (0.8-1.1) 1.3 (0.8-1.1) Sodium Level 141mmol/L (136-145) Potassium Level 4.7mmol/L (3.5-5.1) Chloride Level 102mmol/L (98-107) Carbon Dioxide Level 30mmol/L (21-32) Anion Gap 9 (6-14) Blood Urea Nitrogen 25mg/dL (7-20) Creatinine 3.5mg/dL (0.6-1.0) Estimated GFR (Cockcroft-Gault) 15.8 Glucose Level 100mg/dL (70-99) Calcium Level 9.3mg/dL (8.5-10.1) Laboratory Tests Test 05/27/16 09:05 White Blood Count 7.6x10^3/uL (4.0-11.0) Red Blood Count 2.92x10^6/uL (3.50-5.40) Hemoglobin 9.1g/dL (12.0-15.5) Hematocrit 27.3% (36.0-47.0) Mean Corpuscular Volume 93fL (79-100) Mean Corpuscular Hemoglobin 31pg (25-35) Mean Corpuscular Hemoglobin Concent 33g/dL (31-37) Red Cell Distribution Width 16.2% (11.5-14.5) Platelet Count 250x10^3/uL (140-400) Neutrophils (%) (Auto) 81% (31-73) Lymphocytes (%) (Auto) 7% (24-48) Monocytes (%) (Auto) 8% (0-9) Eosinophils (%) (Auto) 4% (0-3) Basophils (%) (Auto) 1% (0-3) Neutrophils # (Auto) 6.1x10^3uL (1.8-7.7) Lymphocytes # (Auto) 0.6x10^3/uL (1.0-4.8) Monocytes # (Auto) 0.6x10^3/uL (0.0-1.1) Eosinophils # (Auto) 0.3x10^3/uL (0.0-0.7) Basophils # (Auto) 0.1x10^3/uL (0.0-0.2) Prothrombin Time 15.6SEC (11.7-14.0) Prothromb Time International Ratio 1.3 (0.8-1.1) Medications Active Scripts Medications Dose Route/Sig Days Date Category Zofran Odt (Ondansetron) 4 Mg Tab.rapdis 1 Tab SL Q8HRS PRN 10/28/15 Rx Percocet 7.5-325 Mg Tablet (Oxycodone/Acetaminophen) 1 Each Tablet 1 Tab PO PRN Q8HRS PRN 08/30/14 Reported Xanax (Alprazolam) 0.25 Mg Tablet 2 Mg PO TID PRN 11/10/13 Reported Metoprolol Succinate ( Xl ) (Metoprolol Succinate) 200 Mg Tab.er.24h 1 Tab PO DAILY 11/10/13 Reported Hydralazine Hcl 50 Mg Tablet 1 Tab PO TID 11/10/13 Reported Amlodipine Besylate 10 Mg Tablet 1 Tab PO DAILY 11/10/13 Reported Impression . ACUTE RESP FAILURE SEC TO PEA, RESOLVED PEA SUSPECT ACIDOSIS VS HYPOVOLEMIA/HYPERKALEMIA, RESOLVED ESRD/HD S/P HIP REPAIR WORSENING CXR , SUSPECT CHF, CANNOT EXCLUDE PNEUMONIA Plan . Nasal canula HD with UF labs reviewed / CXR reviewed. repeat cxr post HD today antibiotic per ID d/w SINDY Alfaro MD May 27, 2016 10:59
[2016-05-27 11:00] VITALS: BP 146/97
[2016-05-27] MEDS ORDERED: DIPHENHYDRAMINE HCL 25 MG CAPSULE PO ONE (11:45)
[2016-05-27] MEDS: ONDANSETRON PF 4 MG/2 ML VIAL. IV PRN (12:40)
[2016-05-27] MEDS: MULTIVITAMIN with MINERAL TABLET. PO SCH (12:41)
[2016-05-27] MEDS: METOPROLOL SUCC 24HR ER 100 MG TAB.ER.24H. PO SCH (12:41)
[2016-05-27] MEDS: LISINOPRIL 20 MG TABLET PO SCH (12:41)
[2016-05-27] MEDS: FERROUS SULFATE 325 MG TABLET PO SCH ×2 (12:41→18:20)
[2016-05-27] MEDS: HYDRALAZINE 50 MG TABLET PO SCH ×3 (12:41→21:00)
[2016-05-27] MEDS: AMLODIPINE BESYLATE 10 MG TABLET PO SCH (12:42)
[2016-05-27 15:00] VITALS: BP 144/101
[2016-05-27] MEDS: LORAZEPAM 2 MG/ML VIAL IV PRN (15:05)
[2016-05-27] MEDS ORDERED: WARFARIN 5 MG TABLET. PO ONE (16:00)
[2016-05-27 19:00] VITALS: BP 164/84
[2016-05-27] MEDS ORDERED: ZOLPIDEM 5 MG TABLET. PO PRN (21:30)
[2016-05-27 23:46] VITALS: BP 164/88
[2016-05-28] MEDS: DIPHENHYDRAMINE 50 MG/ML VIAL IVP PRN ×3 (00:26→18:26)
[2016-05-28] MEDS: FENTANYL PF 100 MCG/2 ML VIAL. IV PRN ×7 (01:17→23:10)
[2016-05-28] MEDS: LORAZEPAM 2 MG/ML VIAL IV PRN ×3 (03:13→20:54)
[2016-05-28 03:21] VITALS: BP 165/72
[2016-05-28 07:00] VITALS: BP 136/97
[2016-05-28] MEDS: FERROUS SULFATE 325 MG TABLET PO SCH ×2 (08:00→14:20)
--- NOTE | 2016-05-28 08:00 | CONS ---
DATE OF CONSULTATION: 05/27/2016 REQUESTING PHYSICIAN: Dr. York. REASON FOR CONSULTATION: Need for long-term antibiotics and/or IV access. HISTORY OF PRESENT ILLNESS: This is a 26-year-old female who ____ end-stage renal disease, hemodialysis, admitted with abdominal pain. The patient had no good explanation for why she had abdominal pain. The patient also has had a hip fracture, which was repaired, was done in February. The patient has had received cefazolin for longtime in this hospitalization and then has been started on Zosyn. The patient has had pulmonary infiltrate, they cleared after dialysis. The patient does not have any fever, does not have any leukocytosis. The patient denies any shortness of breath. Minimal to no cough. The patient has been at times hypoxic, probably combination of pulmonary vascular congestion and significant narcotic use. The patient is right now on dialysis, very comfortable and she says she feels pretty good. PAST MEDICAL HISTORY: Positive for end-stage renal disease, on hemodialysis. The patient does not have any more access in the subclavian area, hence they had to put a dialysis catheter in the femoral area. She does have a fistula, which has been declotted and it should be available to use in a day or two. Also, has femur fracture, ORIF done ____ DICTATION ENDS HERE. KIRSTIE SOARES MD DR: PRATIMA/phuc JOB#: [id number] / [id number]
--- NOTE | 2016-05-28 08:43 | PDOC ---
Infectious Disease Note Subjective Subjective pt is doing ok ROS ROS GEN: Denies fevers, chills, sweats HEENT: Denies blurred vision, sore throat CV: Denies chest pain RESP: Denies shortness of air, cough GI: Denies n/v/d NEURO: Denies confusion, dizziness MSK: Denies weakness, joint pain/swelling Vital Sign Vital Signs Vital Signs Date Time Temp Pulse Resp B/P Pulse Ox O2 Delivery O2 Flow Rate FiO2 05/28/16 08:15 96 Nasal Cannula 3.0 05/28/16 05:36 16 05/28/16 03:21 98.4 99 165/72 98.4 Physical Exam PHYSICAL EXAM GENERAL: NAD, Alert HEENT: PERRL, OC/OP NECK: Supple, no JVD, no LN LUNGS: Clear HEART: S1S2, no gallop, no murmur ABD: Soft, NT, no organomegaly, no rebound EXT: No edema, no cyanosis 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, oriented x 3, no focal neurologic deficit SKIN: No rash IV: ok Labs Lab Laboratory Tests Test 05/27/16 09:05 White Blood Count 7.6x10^3/uL (4.0-11.0) Red Blood Count 2.92x10^6/uL (3.50-5.40) Hemoglobin 9.1g/dL (12.0-15.5) Hematocrit 27.3% (36.0-47.0) Mean Corpuscular Volume 93fL (79-100) Mean Corpuscular Hemoglobin 31pg (25-35) Mean Corpuscular Hemoglobin Concent 33g/dL (31-37) Red Cell Distribution Width 16.2% (11.5-14.5) Platelet Count 250x10^3/uL (140-400) Neutrophils (%) (Auto) 81% (31-73) Lymphocytes (%) (Auto) 7% (24-48) Monocytes (%) (Auto) 8% (0-9) Eosinophils (%) (Auto) 4% (0-3) Basophils (%) (Auto) 1% (0-3) Neutrophils # (Auto) 6.1x10^3uL (1.8-7.7) Lymphocytes # (Auto) 0.6x10^3/uL (1.0-4.8) Monocytes # (Auto) 0.6x10^3/uL (0.0-1.1) Eosinophils # (Auto) 0.3x10^3/uL (0.0-0.7) Basophils # (Auto) 0.1x10^3/uL (0.0-0.2) Prothrombin Time 15.6SEC (11.7-14.0) Prothromb Time International Ratio 1.3 (0.8-1.1) Objective Assessment Pulmonary infiltrate sec to pul vascular congestion ESRD H/O Hip fracture Access problem Chronic pain syndrome Plan Plan of Care no need for antibiotics 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
[2016-05-28] MEDS ORDERED: OXYCODONE IR 5 MG TABLET. PO PRN (08:45)
--- NOTE | 2016-05-28 08:53 | PDOC ---
SUBJECTIVE ROS ESRD DOing OK overall CVS: no Orthopnea, no CP RESP: no SOB, no BARAJAS GI: no Nausea, no Vomiting : no Dysuria, no Urgency OBJECTIVE Vital Signs Vital Signs Date Time Temp Pulse Resp B/P Pulse Ox O2 Delivery O2 Flow Rate FiO2 05/28/16 08:15 96 Nasal Cannula 3.0 05/28/16 07:00 98.6 95 20 136/97 98.6 I & 0 Intake and Output 05/28/16 07:00 Intake Total 900 ml Output Total 0 ml Balance 900 ml Intake Oral 900 ml Output Urine Total 0 ml # Bowel Movements 1 PHYSICAL EXAM Physical Exam GEN: Awake, Oriented x 3, In no distress; NCO2 using EYES: Vision Unchanged, Conjunctiva Normal EN: No EN Drainage, Mucous Membranes moist NECK: no JVD, min JVP, Supple, no Thyromegaly CVS: S1S2, + Murmur, No Gallop, No Rub,no Edema RESP: no Rales, no Rhonchi,no Acc. Muscle Use GI: BS + ve, NO Bruit, Non Tender, Non Distended : no CVA tenderness, no Suprapubic Tenderness DIAGNOSIS/ASSESSMENT Assessment & Plan ESRD: Current fluid and E-lyte status does not necessitate emergent need for dialysis. Will re-evaluate for dialysis in the am and continue on TTSat schedule. ANEMIA; Aranesp as ordered, Transfuse with next HD as needed HTN: Current BP meds as reviewed. See orders for changes. 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 ^ed LFTs contributing) COMMENT/RELEVANT DATA Meds Current Medications Medications (Trade) Dose Ordered Sig/Rolly Start Time Stop Time Status Last Admin Dose Admin Acetaminophen (Tylenol) 650 mg PRN Q4HRS PRN 05/18/16 15:45 05/25/16 12:33 650 MG Acetaminophen/ Hydrocodone Bitart 2 tab 2 tab 1X PREOP PRN 05/18/16 06:00 05/18/16 18:00 DC Acetaminophen/ Hydrocodone Bitart (Lortab 10/325) 1 tab PRN Q3HRS PRN 05/18/16 15:45 05/28/16 08:37 DC Acetaminophen/ Hydrocodone Bitart (Lortab 7.5/325) 1 tab PRN Q3HRS PRN 05/18/16 15:45 05/21/16 10:18 DC Albuterol Sulfate (Ventolin Neb Soln) 2.5 mg PRN QID PRN 05/26/16 12:15 Albuterol/ Ipratropium (Duoneb) 3 ml RTQID 05/23/16 16:00 05/26/16 12:08 DC 05/25/16 16:46 3 ML Alprazolam (Xanax) 2 mg PRN TID PRN 05/15/16 20:47 05/25/16 12:33 2 MG Alteplase, Recombinant (Cathflo) 4 mg 1X ONCE 05/26/16 12:30 05/26/16 12:33 DC 05/26/16 14:47 4 MG Amlodipine Besylate (Norvasc) 10 mg 1X ONCE 05/19/16 17:30 05/19/16 17:31 DC 05/19/16 17:34 10 MG Bisacodyl (Dulcolax Supp) 10 mg 1X PRN PRN 05/19/16 16:00 05/20/16 15:59 DC Calcium Carbonate/ Glycine (Tums) 500 mg PRN QID PRN 05/18/16 15:45 Cefazolin Sodium (Ancef 1gm Ivpb For Omni) 50 ml @ As Directed STK-MED ONCE 05/18/16 13:02 05/18/16 13:03 DC Cefazolin Sodium/ Dextrose 50 ml @ 100 mls/hr 1X PREOP PRN 05/18/16 06:00 05/18/16 18:00 DC Cefazolin Sodium/ Dextrose 2 gm 2 gm STK-MED ONCE 05/18/16 07:30 05/18/16 12:41 DC Cefazolin Sodium/ Sodium Chloride (Ancef/Iv Sodium Chloride 0.9% 50ml) 50 ml @ 100 mls/hr Q6H 05/18/16 16:00 05/19/16 04:29 DC 05/19/16 05:00 100 MLS/HR Ceftriaxone Sodium/Sodium Chloride (Rocephin/Iv Sodium Chloride 0.9% 50ml) 50 ml @ 100 mls/hr Q24H 05/23/16 15:00 05/24/16 12:53 DC 05/23/16 15:13 100 MLS/HR Darbepoetin Jude (Aranesp) 60 mcg [id number] 05/19/16 21:00 Dexamethasone Sodium Phosphate (Decadron) 20 mg STK-MED ONCE 05/18/16 06:57 05/18/16 06:58 DC Dextrose 25 gm STK-MED ONCE 05/19/16 12:00 05/20/16 16:10 DC Dextrose 12.5 gm 12.5 gm PRN Q15MIN PRN 05/18/16 15:45 Dextrose/Sodium Chloride (Iv D5% - 03/22 NS) 1,000 ml @ 100 mls/hr Q10H 05/18/16 15:31 05/19/16 07:48 DC Diphenhydramine HCl (Benadryl) 50 mg 1X ONCE 05/27/16 11:45 05/27/16 11:46 DC 05/27/16 11:59 50 MG Diphenhydramine HCl 75 mg 75 mg 1X ONCE 05/24/16 14:15 05/24/16 14:18 DC 05/24/16 14:47 75 MG Epinephrine HCl 1 mg STK-MED ONCE 05/19/16 12:00 05/20/16 16:10 DC Fentanyl Citrate (Fentanyl 2ml Vial) 50 mcg PRN Q5MIN PRN 05/26/16 15:30 05/27/16 15:29 DC Fentanyl Citrate (Fentanyl 5ml Vial) 250 mcg STK-MED ONCE 05/18/16 13:27 05/18/16 13:28 DC Ferrous Sulfate 325 mg 325 mg [id number] 05/18/16 17:00 05/27/16 18:20 325 MG Glycopyrrolate (Robinul) 1 mg STK-MED ONCE 05/26/16 10:00 05/27/16 08:33 DC Heparin Sodium (Porcine) 2,500 unit 1X ONCE 05/26/16 13:30 05/26/16 13:38 DC 05/26/16 14:53 3,500 UNIT Heparin Sodium/ Sodium Chloride 1,000 unit 1X ONCE 05/26/16 13:00 05/26/16 13:01 DC 05/26/16 14:49 1,000 UNIT Hydralazine HCl (Apresoline) 10 mg PRN Q4HRS PRN 05/19/16 16:15 05/24/16 21:55 10 MG Hydromorphone HCl (Dilaudid) 0.5 mg PRN Q10MIN PRN 05/26/16 15:30 05/26/16 17:22 DC Info (Do NOT chart on this entry -- for MONITORING) 1 each PRN DAILY PRN 05/26/16 13:00 05/28/16 12:59 Info (PHARMACY MONITORING -- do not chart) 1 each PRN DAILY PRN 05/27/16 08:00 UNV Info 1 each 1 each PRN DAILY PRN 05/17/16 12:45 UNV Insulin Aspart (Novolog Vial) 10 unit 1X ONCE 05/18/16 18:30 05/18/16 18:31 Cancel Insulin Human Regular (Novolin R Vial) 10 unit 1X ONCE 05/18/16 19:00 05/18/16 19:01 DC Iodixanol (Visipaque 320) 100 ml 1X ONCE 05/26/16 13:00 05/26/16 13:01 DC 05/26/16 14:48 110 ML Labetalol HCl (Normodyne) 20 mg PRN Q6HRS PRN 05/15/16 23:30 05/25/16 10:08 20 MG Lactated Ringer's (Iv Lactated Ringers) 1,000 ml @ 0 mls/hr Q0M 05/26/16 15:21 05/26/16 17:22 DC Lidocaine HCl 2 ml 1X PRN PRN 05/26/16 15:30 05/26/16 17:22 DC Lidocaine HCl (Xylocaine-Mpf 1% Vial) 2 ml 1X PRN PRN 05/26/16 08:45 05/26/16 17:22 DC Lidocaine/ Prilocaine (Emla) 1 noelle 1X ONCE 05/26/16 08:45 05/26/16 08:46 DC Lidocaine/Sodium Bicarbonate (Buffered Lidocaine 1%) 20 ml 1X ONCE 05/26/16 13:00 05/26/16 13:01 DC 05/26/16 14:48 1 ML Lisinopril (Prinivil) 20 mg 1X ONCE 05/19/16 17:30 05/19/16 17:31 DC 05/19/16 17:34 20 MG Lorazepam (Ativan) 0.5 mg PRN Q8HRS PRN 05/16/16 23:30 05/28/16 03:13 0.5 MG Magnesium Hydroxide (Milk Of Magnesia) 2,400 mg 1X PRN PRN 05/19/16 06:00 05/20/16 05:59 DC Metoclopramide HCl (Reglan) 5 mg PRN Q8HRS PRN 05/16/16 22:45 05/22/16 19:45 5 MG Metoprolol Succinate (Toprol Xl) 200 mg 1X ONCE 05/19/16 17:30 05/19/16 17:31 DC 05/19/16 17:34 200 MG Midazolam HCl (Versed) 2 mg STK-MED ONCE 05/18/16 06:58 05/18/16 06:59 DC Morphine Sulfate 2 mg PRN Q4HRS PRN 05/26/16 18:30 05/27/16 11:38 DC 05/27/16 06:14 2 MG Morphine Sulfate (Morphine Preservative Free) 5 mg STK-MED ONCE 05/18/16 08:59 05/18/16 09:00 DC Morphine Sulfate 1 mg 1 mg PRN Q10MIN PRN 05/26/16 15:30 05/26/16 17:22 DC 05/26/16 16:02 1 MG Morphine Sulfate/ Ketorolac Tromethamine/ Ropivacaine/ Epinephrine HCl/ Sodium Chloride (Morphine 5mg Syringe/Toradol/ Naropin 0.5%/ Adrenalin/Iv Sodium Chloride 0.9% 100ml) 100.5 ml @ 100.5 mls/ hr 1X PERIOP ONCE 05/18/16 06:00 05/18/16 06:59 DC 05/18/16 08:20 Morphine Sulfate/ Ketorolac Tromethamine/ Ropivacaine/ Epinephrine HCl/ Sodium Chloride (Morphine 5mg Syringe/Toradol/ Naropin 0.5%/ Adrenalin/Iv Sodium Chloride 0.9% 50ml) 100.5 ml @ 100.5 mls/ hr 1X PERIOP ONCE 05/18/16 06:00 05/18/16 06:59 Cancel Multivitamins/ Calcium (Thera M Plus) 1 tab DAILY 05/19/16 09:00 05/27/16 12:41 1 TAB Ondansetron HCl (Zofran Odt) 4 mg PRN Q8HRS PRN 05/15/16 20:45 05/21/16 10:18 DC Ondansetron HCl (Zofran) 4 mg PRN Q6HRS PRN 05/26/16 15:30 05/27/16 15:29 DC Ondansetron HCl 4 mg 4 mg STK-MED ONCE 05/26/16 11:54 05/26/16 11:55 DC Oxycodone HCl (Roxicodone) 10 mg PRN Q6HRS PRN 05/28/16 08:45 Oxycodone/ Acetaminophen (Percocet 5/325) 1 tab PRN Q3HRS PRN 05/18/16 15:45 05/28/16 08:37 DC Oxycodone/ Acetaminophen (Percocet 7.5/ 325) 1 tab PRN Q3HRS PRN 05/18/16 15:45 05/28/16 08:37 DC Phenylephrine HCl 1 mg STK-MED ONCE 05/26/16 10:00 05/27/16 08:33 DC Piperacillin Sod/ Tazobactam Sod 1 each 1 each PRN DAILY PRN 05/24/16 13:00 Piperacillin Sod/ Tazobactam Sod/ Sodium Chloride (Zosyn/Iv Sodium Chloride 0.9% 50ml) 50 ml @ 100 mls/hr Q6HRS 05/24/16 13:00 05/27/16 09:38 DC 05/27/16 05:30 100 MLS/HR Polyethylene Glycol (miraLAX PACKET) 17 gm BID 05/17/16 09:00 Prochlorperazine Edisylate (Compazine) 10 mg PRN Q4HRS PRN 05/18/16 15:45 Propofol (Diprivan) 20 ml @ As Directed STK-MED ONCE 05/26/16 11:54 05/26/16 11:55 DC Rocuronium [place] 50 mg 50 mg STK-MED ONCE 05/18/16 06:58 05/18/16 06:59 DC Rocuronium [place] (Zemuron) 50 mg STK-MED ONCE 05/18/16 08:27 05/18/16 08:28 DC Senna/Docusate Sodium (Senna Plus) 1 tab DAILY 05/19/16 09:00 05/23/16 07:52 1 TAB Sevoflurane (Ultane) 30 ml STK-MED ONCE 05/26/16 15:11 05/26/16 15:12 DC Sodium Bicarbonate 50 meq STK-MED ONCE 05/19/16 12:00 05/20/16 16:10 DC Sodium Chloride (Iv Sodium Chloride 0.9% 500ml Bag) 500 ml @ 30 mls/hr [id number] 05/18/16 07:45 05/19/16 07:48 DC 05/18/16 07:45 30 MLS/HR Sodium Chloride (Iv Sodium Chloride 0.9% 1000ml Bag) 1,000 ml @ 1,000 mls/hr Q1H PRN 05/25/16 08:17 05/25/16 14:16 DC Sodium Chloride (Normal Saline Flush) 20 ml 1X PRN PRN 05/26/16 08:45 05/27/16 08:44 DC Tramadol HCl (Ultram) 100 mg PRN Q3HRS PRN 05/18/16 15:45 Warfarin Sodium (Coumadin - No Dose Today) 1 each 1X WARF ONCE 05/25/16 16:00 05/25/16 16:01 DC Warfarin Sodium (Coumadin Per Pharmacy) 1 each PRN DAILY PRN 05/18/16 15:45 05/27/16 15:39 1 EACH Warfarin Sodium (Coumadin) 5 mg 1X WARF ONCE 05/27/16 16:00 05/27/16 16:01 DC 05/27/16 18:19 5 MG Warfarin Sodium 2 mg 2 mg 1X WARF ONCE 05/23/16 16:00 05/23/16 16:01 DC 05/23/16 15:56 2 MG Zolpidem Tartrate (Ambien) 5 mg PRN QHS PRN 05/27/16 21:30 UNV Lab Laboratory Tests Test 05/27/16 09:05 White Blood Count 7.6x10^3/uL (4.0-11.0) Red Blood Count 2.92x10^6/uL (3.50-5.40) Hemoglobin 9.1g/dL (12.0-15.5) Hematocrit 27.3% (36.0-47.0) Mean Corpuscular Volume 93fL (79-100) Mean Corpuscular Hemoglobin 31pg (25-35) Mean Corpuscular Hemoglobin Concent 33g/dL (31-37) Red Cell Distribution Width 16.2% (11.5-14.5) Platelet Count 250x10^3/uL (140-400) Neutrophils (%) (Auto) 81% (31-73) Lymphocytes (%) (Auto) 7% (24-48) Monocytes (%) (Auto) 8% (0-9) Eosinophils (%) (Auto) 4% (0-3) Basophils (%) (Auto) 1% (0-3) Neutrophils # (Auto) 6.1x10^3uL (1.8-7.7) Lymphocytes # (Auto) 0.6x10^3/uL (1.0-4.8) Monocytes # (Auto) 0.6x10^3/uL (0.0-1.1) Eosinophils # (Auto) 0.3x10^3/uL (0.0-0.7) Basophils # (Auto) 0.1x10^3/uL (0.0-0.2) Prothrombin Time 15.6SEC (11.7-14.0) Prothromb Time International Ratio 1.3 (0.8-1.1) VALERY SOARES MD May 28, 2016 08:53
[2016-05-28] MEDS: SENNOSIDES/DOCUSATE 8.6/50MG TABLET. PO SCH ×2 (09:00→14:20)
[2016-05-28] MEDS: POLYETHYLENE GLYCOL 3350 17 GM PACKET. PO SCH ×2 (09:00→20:58)
[2016-05-28] MEDS: HYDRALAZINE 50 MG TABLET PO SCH ×3 (09:00→21:00)
[2016-05-28] MEDS ORDERED: MAGNESIUM SULFATE 2GM 50 ML IV PRN (09:00)
--- NOTE | 2016-05-28 09:16 | RAD ---
Portable chest, 05/28/2016: History: Congestive heart failure Comparison is made to a study from 05/25/2016. The heart is enlarged. A vascular stent is projected over the left innominate vein region. There is persistent pleural thickening laterally on the right with adjacent rib fractures again noted. There are patchy right pulmonary infiltrates with no improvement. There is a moderate left infrahilar elongated parenchymal opacity compatible with atelectasis and/or scarring. The left hemidiaphragm is now obscured suggesting worsening left basilar atelectasis/infiltrate, although patient positioning may be contributing to this appearance. IMPRESSION: Ongoing patchy bilateral pulmonary infiltrates and atelectasis with interval worsening in the left base.
[2016-05-28] MEDS ORDERED: FENTANYL PF 100 MCG/2 ML VIAL. IV ONE (10:45)
[2016-05-28] MEDS ORDERED: DIPHENHYDRAMINE 50 MG/ML VIAL IVP ONE (10:45)
[2016-05-28 11:22] VITALS: BP 143/99
--- NOTE | 2016-05-28 12:50 | PDOC ---
PROGRESS NOTES Subjective Subjective Problems overnight: Patient is sleepy this morning generally sore and weak with physical therapy Objective Vital Signs Vital Signs Date Time Temp Pulse Resp B/P Pulse Ox O2 Delivery O2 Flow Rate FiO2 05/28/16 11:22 98.1 104 18 143/99 95 Nasal Cannula 3.0 98.1 Physical Exam Examination the right hip incision reveals some bloody drainage she has some duskiness over the superior edge of the incision at its apex no purulence or odor area was cleaned up and redressed leg lengths are equal distal neurovascular status intact Labs Laboratory Tests Test 05/27/16 09:05 White Blood Count 7.6x10^3/uL (4.0-11.0) Red Blood Count 2.92x10^6/uL (3.50-5.40) Hemoglobin 9.1g/dL (12.0-15.5) Hematocrit 27.3% (36.0-47.0) Mean Corpuscular Volume 93fL (79-100) Mean Corpuscular Hemoglobin 31pg (25-35) Mean Corpuscular Hemoglobin Concent 33g/dL (31-37) Red Cell Distribution Width 16.2% (11.5-14.5) Platelet Count 250x10^3/uL (140-400) Neutrophils (%) (Auto) 81% (31-73) Lymphocytes (%) (Auto) 7% (24-48) Monocytes (%) (Auto) 8% (0-9) Eosinophils (%) (Auto) 4% (0-3) Basophils (%) (Auto) 1% (0-3) Neutrophils # (Auto) 6.1x10^3uL (1.8-7.7) Lymphocytes # (Auto) 0.6x10^3/uL (1.0-4.8) Monocytes # (Auto) 0.6x10^3/uL (0.0-1.1) Eosinophils # (Auto) 0.3x10^3/uL (0.0-0.7) Basophils # (Auto) 0.1x10^3/uL (0.0-0.2) Prothrombin Time 15.6SEC (11.7-14.0) Prothromb Time International Ratio 1.3 (0.8-1.1) Assessment Assessment POD# [], S/P [right total hip arthroplasty] Problems: Plan Plan of Care Again dressing was changed we'll continue to mobilize her with physical therapy medical supportive care ZHOU BROOKS MD May 28, 2016 12:50
--- NOTE | 2016-05-28 13:12 | PDOC ---
PROGRESS NOTES Chief Complaint Chief Complaint after hip replacement with rib fx S/P code blue 1. Abdominal pain; chronic, unclear etiology 2. Narcotic dependence. 3. Hx osteomyelitis, and replaced hip hardware. 4. elevated Alk Phos; isolated. 5. ESRD: HD tts 6. Anemia; severe, 2/2 ESRD. 7. acute resp failure with fluid overloaded with ESRD and possible PNA 8. left ARM AVF thrombosis 9. non compliance, wants to go home if not getting pain meds 10.HTN with hypotention now i talked to pt today who eventually agreed to take po opoids from [facility] ( c/o abd pain taking pills), and go to [facility]. Pt refused us to talk to her Mother who likely refused to take care of home as per nurse. Pt later got upset with the nurse and wanted to sign AMA, dr. Priest talked to pt and pt is calm now. worsening CXR 2/2 fluid overloaded vs. infection, on NC 4L now, slightly better , no abx as per ID. History of Present Illness History of Present Illness she declines transfer to LTAC, want home w/ home health, not able to transition, on iv abx, needs full assist, req. IV pain meds, does not look well - PRN duonebs breathing treatment - cont supplemental O2 - s/p thrombectomy of the L arm - Pulmonology following, - PTOT, she has a wheelchair at home, she is assist to chair now, - cont narcotics for hip and rib pain - cont IV Zofran for nausea - cont Benadryl for itchiness cont zosyn , repeated cxr left femoral HD cath HD today recent 2 u PRBC transfusion 05/25 a. she has refused PTOT, REFUSE po pain meds, r Vitals Vitals Vital Signs Date Time Temp Pulse Resp B/P Pulse Ox O2 Delivery O2 Flow Rate FiO2 05/28/16 11:22 98.1 104 18 143/99 95 Nasal Cannula 3.0 98.1 Physical Exam General: Alert, Oriented X3, Cooperative, No acute distress, Other (lethargic after HD) Heart: Regular rate, Normal S1, Normal S2, No murmurs, Gallops Lungs: Other (few crackles post) Abdomen: Normal bowel sounds, Soft, No tenderness, No hepatosplenomegaly, No masses Extremities: No edema Skin: No rashes Review of Systems Review of Systems no fever, chills, chest pain Assessment and Plan Assessmemt and Plan Problems Medical Problems: (1) Abdominal pain Status: Acute (2) Hip fracture, right Status: Acute (3) Infection and inflammatory reaction due to internal right hip prosthesis, subsequent encounter Status: Acute (4) Intractable abdominal pain Status: Acute (5) Nausea & vomiting Status: Acute Problems: Comment Review of Relevant I have reviewed the following items lynnette (where applicable) has been applied. Labs Laboratory Tests Test 05/27/16 09:05 White Blood Count 7.6x10^3/uL (4.0-11.0) Red Blood Count 2.92x10^6/uL (3.50-5.40) Hemoglobin 9.1g/dL (12.0-15.5) Hematocrit 27.3% (36.0-47.0) Mean Corpuscular Volume 93fL (79-100) Mean Corpuscular Hemoglobin 31pg (25-35) Mean Corpuscular Hemoglobin Concent 33g/dL (31-37) Red Cell Distribution Width 16.2% (11.5-14.5) Platelet Count 250x10^3/uL (140-400) Neutrophils (%) (Auto) 81% (31-73) Lymphocytes (%) (Auto) 7% (24-48) Monocytes (%) (Auto) 8% (0-9) Eosinophils (%) (Auto) 4% (0-3) Basophils (%) (Auto) 1% (0-3) Neutrophils # (Auto) 6.1x10^3uL (1.8-7.7) Lymphocytes # (Auto) 0.6x10^3/uL (1.0-4.8) Monocytes # (Auto) 0.6x10^3/uL (0.0-1.1) Eosinophils # (Auto) 0.3x10^3/uL (0.0-0.7) Basophils # (Auto) 0.1x10^3/uL (0.0-0.2) Prothrombin Time 15.6SEC (11.7-14.0) Prothromb Time International Ratio 1.3 (0.8-1.1) Medications Current Medications Ondansetron HCl (Zofran) 4 mg 1X ONCE IV Last administered on 05/15/16 19:17 ; Start 05/15/16 at 19:00; Stop 05/15/16 at 19:01; Status DC Morphine Sulfate 4 mg 1X ONCE IV Last administered on 05/15/16 19:19; Start 05/15/16 at 19:00; Stop 05/15/16 at 19:01; Status DC Hydralazine HCl (Apresoline) 10 mg 1X ONCE IVP Last administered on 05/15/16 19:21; Start 05/15/16 at 19:00; Stop 05/15/16 at 19:01; Status DC Lorazepam (Ativan) 1 mg 1X ONCE PO Last administered on 05/15/16 20:04; Start 05/15/16 at 19:45; Stop 05/15/16 at 19:46; Status DC Alprazolam (Xanax) 2 mg PRN TID PRN PO ANXIETY / AGITATION; Start 05/15/16 at 20:45; Stop 05/15/16 at 20:47; Status DC Amlodipine Besylate (Norvasc) 10 mg DAILY PO Last administered on 05/27/16 12: 42; Start 05/16/16 at 09:00 Hydralazine HCl (Apresoline) 50 mg TID PO Last administered on 05/27/16 15:06; Start 05/16/16 at 09:00 Ondansetron HCl (Zofran Odt) 4 mg PRN Q8HRS PRN PO NAUSEA; Start 05/15/16 at 20 :45; Stop 05/21/16 at 10:18; Status DC Oxycodone/ Acetaminophen (Percocet 7.5/ 325) 1 tab PRN Q8HRS PRN PO PAIN; Start 05/15/16 at 20:45; Status Cancel Metoprolol Succinate (Toprol Xl) 200 mg DAILY PO Last administered on 05/27/16 12:41; Start 05/16/16 at 09:00 Alprazolam (Xanax) 2 mg PRN TID PRN PO ANXIETY / AGITATION Last administered on 05/25/16 12:33; Start 05/15/16 at 20:47 Morphine Sulfate 4 mg 1X ONCE IV Last administered on 05/15/16 21:13; Start 05/15/16 at 21:00; Stop 05/15/16 at 21:01; Status DC Ondansetron HCl (Zofran) 4 mg 1X ONCE IV Last administered on 05/15/16 21:08 ; Start 05/15/16 at 21:00; Stop 05/15/16 at 21:01; Status DC Labetalol HCl (Normodyne) 20 mg PRN Q6HRS PRN IVP HYPERTENSION, SEE COMMENTS Last administered on 05/25/16 10:08; Start 05/15/16 at 23:30 Lorazepam (Ativan) 1 mg PRN Q6HRS PRN IV ANXIETY / AGITATION Last administered on 05/16/16 20:22; Start 05/15/16 at 23:30; Stop 05/16/16 at 22:44; Status DC Morphine Sulfate 2 mg PRN Q2HR PRN IV PAIN Last administered on 05/16/16 10:52 ; Start 05/15/16 at 23:30; Stop 05/16/16 at 11:42; Status DC Morphine Sulfate 4 mg PRN Q2HR PRN IV PAIN; Start 05/15/16 at 23:30; Stop 05/16 at 11:42; Status DC Diphenhydramine HCl (Benadryl) 50 mg PRN Q6HRS PRN IVP ITCHING Last administered on 05/16/16 20:23; Start 05/15/16 at 23:30; Stop 05/16/16 at 22:44 ; Status DC Morphine Sulfate 1 mg PRN Q2HR PRN IV PAIN Last administered on 05/17/16 18:38 ; Start 05/16/16 at 11:45; Stop 05/21/16 at 10:18; Status DC Diphenhydramine HCl (Benadryl) 25 mg PRN Q8HRS PRN IVP ITCHING Last administered on 05/18/16 04:54; Start 05/16/16 at 23:30; Stop 05/18/16 at 15:51 ; Status DC Lorazepam (Ativan) 0.5 mg PRN Q8HRS PRN IV ANXIETY / AGITATION Last administered on 05/28/16 12:09; Start 05/16/16 at 23:30 Metoclopramide HCl (Reglan) 5 mg PRN Q8HRS PRN IV NAUSEA/VOMITING Last administered on 05/22/16 19:45; Start 05/16/16 at 22:45 Polyethylene Glycol (miraLAX PACKET) 17 gm BID PO ; Start 05/17/16 at 09:00 Lidocaine HCl 2 ml 2 ml STK-MED ONCE .ROUTE ; Start 05/17/16 at 11:20; Stop at 11:21; Status DC Sodium Chloride (Iv Sodium Chloride 0.9% 1000ml Bag) 1,000 ml @ 1,000 mls/hr Q1H PRN IV hypotension; Start 05/17/16 at 12:42; Stop 05/17/16 at 18:41; Status DC Diphenhydramine HCl (Benadryl) 25 mg 1X PRN PRN IV ITCHING; Start 05/17/16 at 12:45; Stop 05/18/16 at 12:44; Status DC Diphenhydramine HCl (Benadryl) 25 mg 1X PRN PRN IV ITCHING; Start 05/17/16 at 12:45; Stop 05/18/16 at 12:44; Status DC Info (PHARMACY MONITORING -- do not chart) 1 each PRN DAILY PRN MC SEE COMMENTS ; Start 05/17/16 at 12:45; Status UNV Info 1 each 1 each PRN DAILY PRN MC SEE COMMENTS; Start 05/17/16 at 12:45; Status UNV Morphine Sulfate/ Ketorolac Tromethamine/ Ropivacaine/ Epinephrine HCl/ Sodium Chloride (Morphine 5mg Syringe/Toradol/ Naropin 0.5%/ Adrenalin/Iv Sodium Chloride 0.9% 100ml) 100.5 ml @ 100.5 mls/ hr 1X PERIOP ONCE INT ART Last administered on 05/18/16 08:20; Start 05/18/16 at 06:00; Stop 05/18/16 at 06:59 ; Status DC Ondansetron HCl (Zofran) 4 mg PRN Q6HRS PRN IV Nausea; Start 05/18/16 at 07:00 ; Stop 05/19/16 at 06:59; Status DC Fentanyl Citrate (Fentanyl 2ml Vial) 25 mcg PRN Q5MIN PRN IV MILD PAIN Last administered on 05/18/16 16:42; Start 05/18/16 at 07:00; Stop 05/19/16 at 06:59 ; Status DC Fentanyl Citrate (Fentanyl 2ml Vial) 50 mcg PRN Q5MIN PRN IV MODERATE PAIN Last administered on 05/19/16 02:10; Start 05/18/16 at 07:00; Stop 05/19/16 at 06 :59; Status DC Morphine Sulfate 1 mg PRN Q10MIN PRN IV SEVERE PAIN; Start 05/18/16 at 07:00; Stop 05/19/16 at 06:59; Status DC Lidocaine HCl 2 ml 1X PRN PRN ID IV START; Start 05/18/16 at 07:00; Stop at 06:59; Status DC Hydromorphone HCl (Dilaudid) 0.5 mg PRN Q10MIN PRN IV SEVERE PAIN, Second choice Last administered on 05/19/16 00:53; Start 05/18/16 at 07:00; Stop at 06:59; Status DC Prochlorperazine Edisylate 5 mg 5 mg PACU PRN PRN IV NAUSEA; Start 05/18/16 at 07:00; Stop 05/19/16 at 06:59; Status DC Sodium Chloride (Iv Sodium Chloride 0.9% 1000ml Bag) 1,000 ml @ 30 mls/hr Q24H IV ; Start 05/18/16 at 07:00; Stop 05/19/16 at 07:48; Status DC Warfarin Sodium (Coumadin) 5 mg 1X ONCE PO Last administered on 05/17/16 16: 31; Start 05/17/16 at 17:00; Stop 05/17/16 at 17:01; Status DC Acetaminophen/ Hydrocodone Bitart (Lortab 7.5/325) 2 tab 1X ONCE PO ; Start at 05:30; Stop 05/18/16 at 05:31; Status Cancel Acetaminophen/ Hydrocodone Bitart 2 tab 2 tab 1X PREOP PRN PO PRIOR TO PROCEDURE; Start 05/18/16 at 06:00; Stop 05/18/16 at 18:00; Status DC Cefazolin Sodium/ Dextrose 50 ml @ 100 mls/hr 1X PREOP PRN IV PRIOR TO PROCEDURE; Start 05/18/16 at 06:00; Stop 05/18/16 at 18:00; Status DC Morphine Sulfate/ Ketorolac Tromethamine/ Ropivacaine/ Epinephrine HCl/ Sodium Chloride (Morphine 5mg Syringe/Toradol/ Naropin 0.5%/ Adrenalin/Iv Sodium Chloride 0.9% 50ml) 100.5 ml @ 100.5 mls/ hr 1X PERIOP ONCE INT ART ; Start at 06:00; Stop 05/18/16 at 06:59; Status Cancel Dexamethasone Sodium Phosphate (Decadron) 20 mg STK-MED ONCE .ROUTE ; Start at 06:57; Stop 05/18/16 at 06:58; Status DC Ondansetron HCl 4 mg 4 mg STK-MED ONCE .ROUTE ; Start 05/18/16 at 06:57; Stop at 06:58; Status DC Propofol (Diprivan) 20 ml @ As Directed STK-MED ONCE IV ; Start 05/18/16 at 06: 57; Stop 05/18/16 at 06:58; Status DC Lidocaine HCl 100 mg STK-MED ONCE .ROUTE ; Start 05/18/16 at 06:57; Stop at 06:58; Status DC Fentanyl Citrate (Fentanyl 5ml Vial) 250 mcg STK-MED ONCE .ROUTE ; Start at 06:57; Stop 05/18/16 at 06:58; Status DC Midazolam HCl (Versed) 2 mg STK-MED ONCE .ROUTE ; Start 05/18/16 at 06:58; Stop 05/18/16 at 06:59; Status DC Rocuronium Roberts 50 mg 50 mg STK-MED ONCE .ROUTE ; Start 05/18/16 at 06:58; Stop 05/18/16 at 06:59; Status DC Acetaminophen 100 ml @ As Directed STK-MED ONCE IV ; Start 05/18/16 at 07:13; Stop 05/18/16 at 07:14; Status DC Sodium Chloride 500 ml @ 30 mls/hr [id number] IV Last administered on 05/18/16t 07:45; Start 05/18/16 at 07:45; Stop 05/19/16 at 07:48; Status DC Cefazolin Sodium (Ancef 1gm Ivpb For Omni) 50 ml @ As Directed STK-MED ONCE IV ; Start 05/18/16 at 07:45; Stop 05/18/16 at 07:46; Status DC Fentanyl Citrate (Fentanyl 5ml Vial) 250 mcg STK-MED ONCE .ROUTE ; Start at 08:27; Stop 05/18/16 at 08:28; Status DC Rocuronium Roberts (Zemuron) 50 mg STK-MED ONCE .ROUTE ; Start 05/18/16 at 08:27 ; Stop 05/18/16 at 08:28; Status DC Morphine Sulfate 5 mg 5 mg STK-MED ONCE .ROUTE ; Start 05/18/16 at 08:59; Stop 05/18/16 at 09:00; Status DC Cefazolin Sodium (Ancef 1gm Ivpb For Omni) 50 ml @ 100 mls/hr 1X PREOP PRN IV PER PROTOCOL Last administered on 05/18/16 08:06; Start 05/18/16 at 09:30; Stop 05/19/16 at 09:29; Status DC Lisinopril (Prinivil) 20 mg DAILY PO Last administered on 05/27/16 12:41; Start 05/18/16 at 11:30 Albuterol Sulfate (Ventolin Neb Soln) 2.5 mg STK-MED ONCE .ROUTE ; Start at 11:24; Stop 05/18/16 at 11:25; Status DC Morphine Sulfate 10 mg STK-MED ONCE .ROUTE ; Start 05/18/16 at 11:55; Stop 05/18 at 11:56; Status DC Cefazolin Sodium/ Dextrose 2 gm 2 gm STK-MED ONCE IV ; Start 05/18/16 at 07:30; Stop 05/18/16 at 12:41; Status DC Cefazolin Sodium (Ancef 1gm Ivpb For Omni) 50 ml @ As Directed STK-MED ONCE IV ; Start 05/18/16 at 13:02; Stop 05/18/16 at 13:03; Status DC Fentanyl Citrate (Fentanyl 5ml Vial) 250 mcg STK-MED ONCE .ROUTE ; Start at 13:27; Stop 05/18/16 at 13:28; Status DC Phenylephrine HCl 1 mg STK-MED ONCE IV ; Start 05/18/16 at 13:58; Stop 05/18/16 at 13:59; Status DC Insulin Human Regular (Novolin R Vial) 10 unit 1X ONCE IV ; Start 05/18/16 at 14:15; Stop 05/18/16 at 14:16; Status DC Acetaminophen/ Hydrocodone Bitart (Lortab 7.5/325) 1 tab PRN Q3HRS PRN PO PAIN ; Start 05/18/16 at 15:45; Stop 05/21/16 at 10:18; Status DC Acetaminophen/ Hydrocodone Bitart (Lortab 10/325) 1 tab PRN Q3HRS PRN PO PAIN; Start 05/18/16 at 15:45; Stop 05/28/16 at 08:37; Status DC Tramadol HCl (Ultram) 50 mg PRN QID PRN PO PAIN; Start 05/18/16 at 15:45; Stop 05/21/16 at 10:18; Status DC Oxycodone/ Acetaminophen (Percocet 5/325) 1 tab PRN Q3HRS PRN PO PAIN; Start at 15:45; Stop 05/28/16 at 08:37; Status DC Oxycodone/ Acetaminophen (Percocet 7.5/ 325) 1 tab PRN Q3HRS PRN PO PAIN; Start 05/18/16 at 15:45; Stop 05/28/16 at 08:37; Status DC Tramadol HCl (Ultram) 100 mg PRN Q3HRS PRN PO PAIN; Start 05/18/16 at 15:45 Morphine Sulfate 2 mg PRN Q1HR PRN IV PAIN; Start 05/18/16 at 15:45; Stop at 10:40; Status DC Fentanyl Citrate (Fentanyl 2ml Vial) 25 mcg PRN Q1HR PRN IV PAIN Last administered on 05/20/16 21:37; Start 05/18/16 at 15:45; Stop 05/21/16 at 10:18; Status DC Diphenhydramine HCl (Benadryl) 25 mg PRN Q6HRS PRN IV ITCHING Last administered on 05/21/16 10:08; Start 05/18/16 at 15:45; Stop 05/21/16 at 10:43; Status DC Warfarin Sodium (Coumadin Per Pharmacy) 1 each PRN DAILY PRN MC SEE COMMENTS Last administered on 05/28/16 11:53; Start 05/18/16 at 15:45 Multivitamins/ Calcium (Thera M Plus) 1 tab DAILY PO Last administered on 12:41; Start 05/19/16 at 09:00 Senna/Docusate Sodium (Senna Plus) 1 tab DAILY PO Last administered on 07:52; Start 05/19/16 at 09:00 Ferrous Sulfate 325 mg 325 mg BIDWMEALS PO Last administered on 05/27/16 18:20 ; Start 05/18/16 at 17:00 Dextrose/Sodium Chloride (Iv D5% - /2 NS) 1,000 ml @ 100 mls/hr Q10H IV ; Start 05/18/16 at 15:31; Stop 05/19/16 at 07:48; Status DC Magnesium Hydroxide (Milk Of Magnesia) 2,400 mg 1X PRN PRN PO CONSTIPATION; Start 05/19/16 at 06:00; Stop 05/20/16 at 05:59; Status DC Bisacodyl (Dulcolax Supp) 10 mg 1X PRN PRN [place] CONSTIPATION; Start 05/19/16 at 16 :00; Stop 05/20/16 at 15:59; Status DC Acetaminophen (Tylenol) 650 mg PRN Q4HRS PRN PO MILD PAIN / TEMP Last administered on 05/25/16 12:33; Start 05/18/16 at 15:45 Zolpidem Tartrate (Ambien) 5 mg PRN QHS PRN PO INSOMNIA, MAY REPEAT IN 1HR Last administered on 05/19/16 21:06; Start 05/18/16 at 15:45 Calcium Carbonate/ Glycine (Tums) 500 mg PRN QID PRN PO INDIGESTION; Start at 15:45 Morphine Sulfate 4 mg PRN Q1HR PRN IV PAIN Last administered on 05/21/16 08:11 ; Start 05/18/16 at 15:45; Stop 05/21/16 at 10:40; Status DC Morphine Sulfate 6 mg PRN Q1HR PRN IV PAIN Last administered on 05/20/16 20:04 ; Start 05/18/16 at 15:45; Stop 05/21/16 at 10:18; Status DC Morphine Sulfate 8 mg PRN Q1HR PRN IV PAIN; Start 05/18/16 at 15:45; Stop at 10:18; Status DC Sodium Chloride (Normal Saline Flush) 10 ml QSHIFT PRN IV AFTER MEDS AND BLOOD DRAWS; Start 05/18/16 at 15:45; Stop 05/21/16 at 07:32; Status DC Fentanyl Citrate (Fentanyl 2ml Vial) 50 mcg PRN Q1HR PRN IV PAIN Last administered on 05/21/16 10:09; Start 05/18/16 at 15:45; Stop 05/21/16 at 10:40; Status DC Prochlorperazine Edisylate (Compazine) 10 mg PRN Q4HRS PRN IV NAUSEA/VOMITING; Start 05/18/16 at 15:45 Dextrose 12.5 gm 12.5 gm PRN Q15MIN PRN IV SEE COMMENTS; Start 05/18/16 at 15: 45 Cefazolin Sodium/ Sodium Chloride (Ancef/Iv Sodium Chloride 0.9% 50ml) 50 ml @ 100 mls/hr Q6H IV Last administered on 05/19/16 05:00; Start 05/18/16 at 16:00 ; Stop 05/19/16 at 04:29; Status DC Warfarin Sodium (Coumadin) 5 mg 1X WARF ONCE PO ; Start 05/18/16 at 16:00; Stop 05/18/16 at 16:01; Status DC Lidocaine/Sodium Bicarbonate 20 ml 20 ml STK-MED ONCE IJ ; Start 05/18/16 at 16: 51; Stop 05/18/16 at 16:52; Status DC Heparin Sodium/ Sodium Chloride 500 ml @ As Directed STK-MED ONCE .ROUTE ; Start 05/18/16 at 16:51; Stop 05/18/16 at 16:52; Status DC Heparin Sodium (Porcine) 73742 unit 10,000 unit STK-MED ONCE .ROUTE ; Start at 16:52; Stop 05/18/16 at 16:53; Status DC Sodium Chloride (Iv Sodium Chloride 0.9% 1000ml Bag) 1,000 ml @ 1,000 mls/hr Q1H PRN IV hypotension; Start 05/18/16 at 17:23; Stop 05/18/16 at 23:22; Status DC Diphenhydramine HCl (Benadryl) 75 mg 1X PRN PRN IV ITCHING; Start 05/18/16 at 17:30; Stop 05/19/16 at 17:29; Status DC Info (PHARMACY MONITORING -- do not chart) 1 each PRN DAILY PRN MC SEE COMMENTS Last administered on 05/24/16 11:02; Start 05/18/16 at 17:30 Info (PHARMACY MONITORING -- do not chart) 1 each PRN DAILY PRN MC SEE COMMENTS ; Start 05/18/16 at 17:30; Status UNV Lidocaine/Sodium Bicarbonate (Buffered Lidocaine 1%) 3 ml 1X ONCE IJ Last administered on 05/18/16 17:34; Start 05/18/16 at 17:30; Stop 05/18/16 at 17:34 ; Status DC Heparin Sodium/ Sodium Chloride 60 unit 1X ONCE IV ; Start 05/18/16 at 17:30; Stop 05/18/16 at 17:34; Status DC Insulin Aspart (Novolog Vial) 10 unit 1X ONCE SQ ; Start 05/18/16 at 18:30; Stop 05/18/16 at 18:31; Status Cancel Insulin Human Regular 10 unit 10 unit 1X ONCE IV ; Start 05/18/16 at 19:00; Stop 05/18/16 at 19:01; Status DC Propofol (Diprivan) 100 ml @ 0 mls/hr CONT PRN IV . Last administered on 02:10; Start 05/18/16 at 19:00; Stop 05/21/16 at 07:32; Status DC Darbepoetin Jude (Aranesp) 60 mcg WEEKLYHS SQ ; Start 05/19/16 at 21:00; Stop 01/04 at 08:52; Status DC Diphenhydramine HCl (Benadryl) 50 mg 1X ONCE IM Last administered on 05/19/16 13:27; Start 05/19/16 at 13:15; Stop 05/19/16 at 13:16; Status DC Warfarin Sodium (Coumadin - No Dose Today) 1 each 1X WARF ONCE MC ; Start at 16:00; Stop 05/19/16 at 16:01; Status DC Hydralazine HCl (Apresoline) 10 mg PRN Q4HRS PRN IVP ELEVATED BP, SEE COMMENTS Last administered on 05/24/16 21:55; Start 05/19/16 at 16:15 Amlodipine Besylate (Norvasc) 10 mg 1X ONCE PO Last administered on 05/19/16 17:34; Start 05/19/16 at 17:30; Stop 05/19/16 at 17:31; Status DC Lisinopril (Prinivil) 20 mg 1X ONCE PO Last administered on 05/19/16 17:34; Start 05/19/16 at 17:30; Stop 05/19/16 at 17:31; Status DC Metoprolol Succinate (Toprol Xl) 200 mg 1X ONCE PO Last administered on 17:34; Start 05/19/16 at 17:30; Stop 05/19/16 at 17:31; Status DC Lidocaine HCl 2 ml 2 ml STK-MED ONCE .ROUTE ; Start 05/20/16 at 08:19; Stop at 08:20; Status DC Sodium Chloride (Iv Sodium Chloride 0.9% 1000ml Bag) 1,000 ml @ 1,000 mls/hr Q1H PRN IV hypotension; Start 05/20/16 at 09:24; Stop 05/20/16 at 15:23; Status DC Diphenhydramine HCl (Benadryl) 25 mg 1X PRN PRN IV ITCHING Last administered on 05/20/16 09:36; Start 05/20/16 at 09:30; Stop 05/21/16 at 07:32; Status DC Diphenhydramine HCl (Benadryl) 25 mg 1X PRN PRN IV ITCHING Last administered on 05/20/16 09:59; Start 05/20/16 at 09:30; Stop 05/21/16 at 07:32; Status DC Sodium Chloride (Normal Saline Flush) 10 ml 1X PRN PRN IV AP catheter pack; Start 05/20/16 at 09:30; Stop 05/21/16 at 09:29; Status DC Sodium Chloride (Normal Saline Flush) 10 ml 1X PRN PRN IV DIAPHRAGM BUILDER catheter pack; Start 05/20/16 at 09:30; Stop 05/21/16 at 09:29; Status DC Info (PHARMACY MONITORING -- do not chart) 1 each PRN DAILY PRN MC SEE COMMENTS ; Start 05/20/16 at 09:30; Stop 05/20/16 at 09:31; Status DC Info (PHARMACY MONITORING -- do not chart) 1 each PRN DAILY PRN MC SEE COMMENTS ; Start 05/20/16 at 09:30; Status Cancel Warfarin Sodium (Coumadin) 3 mg 1X WARF ONCE PO Last administered on 05/20/16 16:26; Start 05/20/16 at 16:00; Stop 05/20/16 at 16:01; Status DC Dextrose 25 gm STK-MED ONCE IV ; Start 05/19/16 at 12:00; Stop 05/20/16 at 16:10; Status DC Epinephrine HCl 1 mg STK-MED ONCE .ROUTE ; Start 05/19/16 at 12:00; Stop 05/20/16 at 16:10; Status DC Sodium Bicarbonate 50 meq STK-MED ONCE .ROUTE ; Start 05/19/16 at 12:00; Stop 05/20/16 at 16:10; Status DC Diphenhydramine HCl (Benadryl) 50 mg 1X ONCE IVP Last administered on 04:02; Start 05/21/16 at 04:00; Stop 05/21/16 at 10:18; Status DC Lidocaine HCl (Xylocaine-Mpf 1% Vial) 2 ml STK-MED ONCE .ROUTE ; Start 05/20/16 at 08:00; Stop 05/21/16 at 08:00; Status DC Fentanyl Citrate (Fentanyl 2ml Vial) 50 mcg PRN Q3HRS PRN IV PAIN Last administered on 05/28/16 08:15; Start 05/21/16 at 10:27 Morphine Sulfate 2 mg PRN Q3HRS PRN IV PAIN Last administered on 05/25/16 09:07 ; Start 05/21/16 at 10:27; Stop 05/25/16 at 11:44; Status DC Morphine Sulfate 4 mg PRN Q3HRS PRN IV PAIN Last administered on 05/24/16 17:16 ; Start 05/21/16 at 10:27; Stop 05/25/16 at 11:44; Status DC Diphenhydramine HCl (Benadryl) 50 mg PRN Q6HRS PRN IVP itching Last administered on 05/28/16 06:06; Start 05/21/16 at 10:30 Ondansetron HCl (Zofran) 4 mg PRN Q6HRS PRN IV NAUSEA/VOMITING Last administered on 05/27/16 12:40; Start 05/21/16 at 11:15 Warfarin Sodium 3 mg 3 mg 1X WARF ONCE PO Last administered on 05/21/16 15:08 ; Start 05/21/16 at 16:00; Stop 05/21/16 at 16:01; Status DC Sodium Chloride (Iv Sodium Chloride 0.9% 1000ml Bag) 1,000 ml @ 1,000 mls/hr Q1H PRN IV hypotension; Start 05/22/16 at 09:36; Stop 05/22/16 at 15:35; Status DC Diphenhydramine HCl (Benadryl) 25 mg 1X PRN PRN IV ITCHING Last administered on 05/22/16 16:52; Start 05/22/16 at 09:45; Stop 05/22/16 at 19:00; Status DC Sodium Chloride (Normal Saline Flush) 10 ml 1X PRN PRN IV AP catheter pack; Start 05/22/16 at 09:45; Stop 05/22/16 at 19:00; Status DC Sodium Chloride (Normal Saline Flush) 10 ml 1X PRN PRN IV DIAPHRAGM BUILDER catheter pack; Start 05/22/16 at 09:45; Stop 05/22/16 at 19:00; Status DC Info (PHARMACY MONITORING -- do not chart) 1 each PRN DAILY PRN MC SEE COMMENTS ; Start 05/22/16 at 09:45; Status UNV Info (PHARMACY MONITORING -- do not chart) 1 each PRN DAILY PRN MC SEE COMMENTS ; Start 05/22/16 at 09:45; Status UNV Warfarin Sodium (Coumadin) 2 mg 1X WARF ONCE PO Last administered on 05/22/16 17:48; Start 05/22/16 at 16:00; Stop 05/22/16 at 16:01; Status DC Warfarin Sodium 2 mg 2 mg 1X WARF ONCE PO Last administered on 05/23/16 15:56 ; Start 05/23/16 at 16:00; Stop 05/23/16 at 16:01; Status DC Ceftriaxone Sodium/Sodium Chloride (Rocephin/Iv Sodium Chloride 0.9% 50ml) 50 ml @ 100 mls/hr Q24H IV Last administered on 05/23/16 15:13; Start 05/23/16 at 15:00; Stop 05/24/16 at 12:53; Status DC Albuterol/ Ipratropium (Duoneb) 3 ml RTQID NEB Last administered on 05/25/16 16 :46; Start 05/23/16 at 16:00; Stop 05/26/16 at 12:08; Status DC Warfarin Sodium (Coumadin) 2 mg 1X WARF ONCE PO ; Start 05/24/16 at 16:00; Stop 05/24/16 at 16:01; Status DC Ondansetron HCl (Zofran) 4 mg PRN Q6HRS PRN IV Nausea; Start 05/25/16 at 07:00; Stop 05/25/16 at 18:00; Status DC Fentanyl Citrate (Fentanyl 2ml Vial) 25 mcg PRN Q5MIN PRN IV MILD PAIN; Start 05/25/16 at 07:00; Stop 05/25/16 at 18:00; Status DC Fentanyl Citrate (Fentanyl 2ml Vial) 50 mcg PRN Q5MIN PRN IV MODERATE PAIN; Start 05/25/16 at 07:00; Stop 05/25/16 at 18:00; Status DC Morphine Sulfate 1 mg 1 mg PRN Q10MIN PRN IV SEVERE PAIN; Start 05/25/16 at 07: 00; Stop 05/25/16 at 18:00; Status DC Lactated Ringer's (Iv Lactated Ringers) 1,000 ml @ 30 mls/hr Q24H IV ; Start at 07:00; Stop 05/25/16 at 18:59; Status DC Lidocaine HCl 2 ml 1X PRN PRN ID IV START; Start 05/25/16 at 07:00; Stop at 18:00; Status DC Hydromorphone HCl (Dilaudid) 0.5 mg PRN Q10MIN PRN IV SEVERE PAIN, Second choice; Start 05/25/16 at 07:00; Stop 05/25/16 at 18:00; Status DC Piperacillin Sod/ Tazobactam Sod 1 each 1 each PRN DAILY PRN MC SEE COMMENTS; Start 05/24/16 at 13:00; Stop 05/28/16 at 11:17; Status DC Piperacillin Sod/ Tazobactam Sod 2.25 gm/Sodium Chloride 50 ml @ 100 mls/hr Q6HRS IV Last administered on 05/27/16 05:30; Start 05/24/16 at 13:00; Stop 05/27 at 09:38; Status DC Sodium Chloride (Iv Sodium Chloride 0.9% 1000ml Bag) 1,000 ml @ 1,000 mls/hr Q1H PRN IV hypotension; Start 05/24/16 at 13:14; Stop 05/24/16 at 19:13; Status DC Diphenhydramine HCl (Benadryl) 25 mg 1X PRN PRN IV ITCHING; Start 05/24/16 at 13 :15; Stop 05/24/16 at 14:09; Status DC Diphenhydramine HCl (Benadryl) 25 mg 1X PRN PRN IV ITCHING; Start 05/24/16 at 13 :15; Stop 05/24/16 at 14:09; Status DC Sodium Chloride (Normal Saline Flush) 10 ml 1X PRN PRN IV AP catheter pack; Start 05/24/16 at 13:15; Stop 05/25/16 at 13:14; Status DC Sodium Chloride 10 ml 10 ml 1X PRN PRN IV DIAPHRAGM BUILDER catheter pack; Start 05/24/16 at 13 :15; Stop 05/25/16 at 13:14; Status DC Sodium Chloride (Iv Sodium Chloride 0.9% 1000ml Bag) 1,000 ml @ 400 mls/hr Q2H30M PRN IV PATENCY; Start 05/24/16 at 13:14; Stop 05/25/16 at 01:13; Status DC Info (PHARMACY MONITORING -- do not chart) 1 each PRN DAILY PRN MC SEE COMMENTS ; Start 05/24/16 at 13:15; Status UNV Diphenhydramine HCl 75 mg 75 mg 1X ONCE IV Last administered on 05/24/16 14:47 ; Start 05/24/16 at 14:15; Stop 05/24/16 at 14:18; Status DC Sodium Chloride (Iv Sodium Chloride 0.9% 1000ml Bag) 1,000 ml @ 1,000 mls/hr Q1H PRN IV hypotension; Start 05/25/16 at 08:17; Stop 05/25/16 at 14:16; Status DC Diphenhydramine HCl (Benadryl) 25 mg 1X PRN PRN IV ITCHING Last administered on 05/25/16 09:00; Start 05/25/16 at 08:30; Stop 05/26/16 at 08:29; Status DC Diphenhydramine HCl (Benadryl) 25 mg 1X PRN PRN IV ITCHING; Start 05/25/16 at 08 :30; Stop 05/26/16 at 08:29; Status DC Info (PHARMACY MONITORING -- do not chart) 1 each PRN DAILY PRN MC SEE COMMENTS ; Start 05/25/16 at 08:30; Status UNV Warfarin Sodium (Coumadin - No Dose Today) 1 each 1X WARF ONCE MC ; Start at 16:00; Stop 05/25/16 at 16:01; Status DC Diphenhydramine HCl (Benadryl) 25 mg 1X ONCE IVP Last administered on 12:34; Start 05/25/16 at 12:45; Stop 05/25/16 at 12:46; Status DC Morphine Sulfate 4 mg 4 mg PRN Q3HRS PRN IV PAIN Last administered on 05/26/16 11:33; Start 05/25/16 at 12:45; Stop 05/26/16 at 17:22; Status DC Lactated Ringer's (Iv Lactated Ringers) 1,000 ml @ 50 mls/hr Q20H IV ; Start at 13:00; Stop 05/26/16 at 12:59; Status DC Lidocaine HCl (Xylocaine-Mpf 1% Vial) 2 ml 1X PRN PRN ID FOR PIC LINE INSERTION ; Start 05/26/16 at 08:45; Stop 05/26/16 at 17:22; Status DC Sodium Chloride (Normal Saline Flush) 20 ml 1X PRN PRN IV PER PROTOCOL; Start 05/26/16 at 08:45; Stop 05/27/16 at 08:44; Status DC Lidocaine/ Prilocaine (Emla) 1 noelle 1X ONCE TP ; Start 05/26/16 at 08:45; Stop at 08:46; Status DC Warfarin Sodium (Coumadin) 3 mg 1X WARF ONCE PO ; Start 05/26/16 at 16:00; Stop 05/26/16 at 16:01; Status DC Ondansetron HCl 4 mg 4 mg STK-MED ONCE .ROUTE ; Start 05/26/16 at 11:54; Stop 05/26/16 at 11:55; Status DC Propofol (Diprivan) 20 ml @ As Directed STK-MED ONCE IV ; Start 05/26/16 at 11:54 ; Stop 05/26/16 at 11:55; Status DC Lidocaine HCl 100 mg STK-MED ONCE .ROUTE ; Start 05/26/16 at 11:54; Stop 05/26/16 at 11:55; Status DC Lidocaine/Sodium Bicarbonate 20 ml 20 ml STK-MED ONCE IJ ; Start 05/26/16 at 12: 02; Stop 05/26/16 at 17:22; Status DC Heparin Sodium/ Sodium Chloride 1,000 ml @ As Directed STK-MED ONCE .ROUTE ; Start 05/26/16 at 12:02; Stop 05/26/16 at 12:03; Status DC Iodixanol (Visipaque 320) 100 ml STK-MED ONCE .ROUTE ; Start 05/26/16 at 12:02; Stop 05/26/16 at 12:03; Status DC Albuterol Sulfate (Ventolin Neb Soln) 2.5 mg PRN QID PRN NEB SHORTNESS OF BREATH; Start 05/26/16 at 12:15 Alteplase, Recombinant (Cathflo) 4 mg 1X ONCE IV Last administered on 14:47; Start 05/26/16 at 12:30; Stop 05/26/16 at 12:33; Status DC Heparin Sodium/ Sodium Chloride 1,000 unit 1X ONCE IART Last administered on 14:48; Start 05/26/16 at 13:00; Stop 05/26/16 at 13:01; Status DC Heparin Sodium/ Sodium Chloride 1,000 unit 1X ONCE IART Last administered on 14:49; Start 05/26/16 at 13:00; Stop 05/26/16 at 13:01; Status DC Lidocaine/Sodium Bicarbonate (Buffered Lidocaine 1%) 20 ml 1X ONCE IJ Last administered on 05/26/16 14:48; Start 05/26/16 at 13:00; Stop 05/26/16 at 13:01; Status DC Iodixanol (Visipaque 320) 100 ml 1X ONCE IART Last administered on 05/26/16 14 :48; Start 05/26/16 at 13:00; Stop 05/26/16 at 13:01; Status DC Info (Do NOT chart on this entry -- for MONITORING) 1 each PRN DAILY PRN MC SEE COMMENTS; Start 05/26/16 at 13:00; Stop 05/28/16 at 12:59; Status DC Heparin Sodium (Porcine) 10,000 unit STK-MED ONCE .ROUTE ; Start 05/26/16 at 13: 27; Stop 05/26/16 at 13:28; Status DC Heparin Sodium (Porcine) 2,500 unit 1X ONCE IV Last administered on 05/26/16t 14:53; Start 05/26/16 at 13:30; Stop 05/26/16 at 13:38; Status DC Sevoflurane (Ultane) 30 ml STK-MED ONCE IH ; Start 05/26/16 at 15:11; Stop at 15:12; Status DC Ondansetron HCl (Zofran) 4 mg PRN Q6HRS PRN IV Nausea; Start 05/26/16 at 15:30; Stop 05/27/16 at 15:29; Status DC Fentanyl Citrate (Fentanyl 2ml Vial) 25 mcg PRN Q5MIN PRN IV MILD PAIN; Start 05/26/16 at 15:30; Stop 05/27/16 at 15:29; Status DC Fentanyl Citrate (Fentanyl 2ml Vial) 50 mcg PRN Q5MIN PRN IV MODERATE PAIN; Start 05/26/16 at 15:30; Stop 05/27/16 at 15:29; Status DC Morphine Sulfate 1 mg 1 mg PRN Q10MIN PRN IV SEVERE PAIN Last administered on 16:02; Start 05/26/16 at 15:30; Stop 05/26/16 at 17:22; Status DC Lactated Ringer's (Iv Lactated Ringers) 1,000 ml @ 0 mls/hr Q0M IV ; Start 05/26 at 15:21; Stop 05/26/16 at 17:22; Status DC Lidocaine HCl 2 ml 1X PRN PRN ID IV START; Start 05/26/16 at 15:30; Stop at 17:22; Status DC Hydromorphone HCl (Dilaudid) 0.5 mg PRN Q10MIN PRN IV SEV PAIN,Second choice; Start 05/26/16 at 15:30; Stop 05/26/16 at 17:22; Status DC Morphine Sulfate 2 mg PRN Q4HRS PRN IV PAIN Last administered on 05/27/16 06:14 ; Start 05/26/16 at 18:30; Stop 05/27/16 at 11:38; Status DC Info (PHARMACY MONITORING -- do not chart) 1 each PRN DAILY PRN MC SEE COMMENTS ; Start 05/27/16 at 08:00; Status UNV Phenylephrine HCl 1 mg STK-MED ONCE IV ; Start 05/26/16 at 10:00; Stop 05/27/16 at 08:33; Status DC Glycopyrrolate (Robinul) 1 mg STK-MED ONCE .ROUTE ; Start 05/26/16 at 10:00; Stop 05/27/16 at 08:33; Status DC Warfarin Sodium (Coumadin) 5 mg 1X WARF ONCE PO Last administered on 05/27/16 18:19; Start 05/27/16 at 16:00; Stop 05/27/16 at 16:01; Status DC Diphenhydramine HCl (Benadryl) 50 mg 1X ONCE PO Last administered on 05/27/16 11:59; Start 05/27/16 at 11:45; Stop 05/27/16 at 11:46; Status DC Zolpidem Tartrate (Ambien) 5 mg PRN QHS PRN PO INSOMNIA; Start 05/27/16 at 21:30 ; Status UNV Oxycodone HCl (Roxicodone) 10 mg PRN Q6HRS PRN PO PAIN; Start 05/28/16 at 08:45 Darbepoetin Jude 100 mcg 100 mcg Fr SQ ; Start 06/02/16 at 21:00 Magnesium Sulfate/ Dextrose (Magnesium Sulfate PREMIX 2GM) 50 ml @ 25 mls/hr PRN DAILY PRN IV for Mag < 1.7 on am labs; Start 05/28/16 at 09:00 Diphenhydramine HCl (Benadryl) 50 mg 1X ONCE IVP Last administered on 10:52; Start 05/28/16 at 10:45; Stop 05/28/16 at 10:48; Status DC Fentanyl Citrate (Fentanyl 2ml Vial) 50 mcg 1X ONCE IV Last administered on 3/ 10/17at 10:52; Start 05/28/16 at 10:45; Stop 05/28/16 at 10:48; Status DC Warfarin Sodium (Coumadin) 2 mg 1X WARF ONCE PO ; Start 05/28/16 at 16:00; Stop 05/28/16 at 16:01 Active Scripts Active Zofran Odt (Ondansetron) 4 Mg Tab.rapdis 1 Tab SL Q8HRS PRN Reported Percocet 7.5-325 Mg Tablet (Oxycodone/Acetaminophen) 1 Each Tablet 1 Tab PO PRN Q8HRS PRN Xanax (Alprazolam) 0.25 Mg Tablet 2 Mg PO TID PRN Metoprolol Succinate ( Xl ) (Metoprolol Succinate) 200 Mg Tab.er.24h 1 Tab PO DAILY Hydralazine Hcl 50 Mg Tablet 1 Tab PO TID Amlodipine Besylate 10 Mg Tablet 1 Tab PO DAILY Vitals/I & O Vital Sign - Last 24 Hours 05/27/16 05/27/16 05/27/16 05/27/16 15:00 15:06 18:20 19:00 Temp 98.0 98.0 98.0 98.0 Pulse 106 112 100 Resp 20 18 18 B/P 144/101 146/97 164/84 Pulse Ox 97 100 O2 Delivery Nasal Cannula Nasal Cannula Nasal Cannula O2 Flow Rate 3.0 3.0 3.0 05/27/16 05/27/16 05/27/16 05/27/16 20:00 21:00 21:47 23:46 Temp 98.2 98.2 Pulse 100 97 Resp 16 18 B/P 164/84 164/88 Pulse Ox 100 95 O2 Delivery Nasal Cannula Nasal Cannula Nasal Cannula O2 Flow Rate 3.0 3.0 3.0 05/28/16 05/28/16 05/28/16 05/28/16 01:17 03:21 05:01 05:36 Temp 98.4 98.4 Pulse 99 Resp 16 18 16 16 B/P 165/72 Pulse Ox 95 96 96 96 O2 Delivery Nasal Cannula Nasal Cannula Nasal Cannula O2 Flow Rate 3.0 3.0 3.0 05/28/16 05/28/16 05/28/16 05/28/16 07:00 08:15 10:52 10:56 Temp 98.6 98.6 Pulse 95 Resp 20 B/P 136/97 Pulse Ox 97 96 O2 Delivery Nasal Cannula Nasal Cannula Nasal Cannula Nasal Cannula O2 Flow Rate 3.0 3.0 3.0 3.0 05/28/16 11:22 Temp 98.1 98.1 Pulse 104 Resp 18 B/P 143/99 Pulse Ox 95 O2 Delivery Nasal Cannula O2 Flow Rate 3.0 Intake and Output 05/27/16 05/27/16 05/28/16 15:00 23:00 07:00 Intake Total 400 ml 500 ml Output Total 0 ml Balance 400 ml 500 ml FABIOLA ZHANG MD May 28, 2016 13:12
[2016-05-28] MEDS: METOPROLOL SUCC 24HR ER 100 MG TAB.ER.24H. PO SCH (14:18)
[2016-05-28] MEDS: LISINOPRIL 20 MG TABLET PO SCH (14:19)
[2016-05-28] MEDS: MULTIVITAMIN with MINERAL TABLET. PO SCH (14:20)
[2016-05-28] MEDS: AMLODIPINE BESYLATE 10 MG TABLET PO SCH (14:20)
[2016-05-28] MEDS: OXYCODONE IR 5 MG TABLET. PO SCH ×2 (14:32→21:00)
[2016-05-28 15:00] VITALS: BP 140/99
[2016-05-28] MEDS ORDERED: WARFARIN 2 MG TABLET. PO ONE (16:00)
--- NOTE | 2016-05-28 16:23 | PDOC ---
PULMONARY PROGRESS NOTES Subjective no resp distress Vitals Vital Signs Date Time Temp Pulse Resp B/P Pulse Ox O2 Delivery O2 Flow Rate FiO2 05/28/16 15:00 98.8 110 20 140/99 90 Room Air 98.8 05/28/16 14:36 3.0 ROS: No Nausea, No Abdominal Pain, No Increase Cough General: Alert Lungs: Other (few crackles post) Cardiovascular: S1, S2 Abdomen: Soft, Non-tender Neuro Exam: Alert Extremities: No Edema Skin: Warm Labs Laboratory Tests Test 05/27/16 09:05 White Blood Count 7.6x10^3/uL (4.0-11.0) Red Blood Count 2.92x10^6/uL (3.50-5.40) Hemoglobin 9.1g/dL (12.0-15.5) Hematocrit 27.3% (36.0-47.0) Mean Corpuscular Volume 93fL (79-100) Mean Corpuscular Hemoglobin 31pg (25-35) Mean Corpuscular Hemoglobin Concent 33g/dL (31-37) Red Cell Distribution Width 16.2% (11.5-14.5) Platelet Count 250x10^3/uL (140-400) Neutrophils (%) (Auto) 81% (31-73) Lymphocytes (%) (Auto) 7% (24-48) Monocytes (%) (Auto) 8% (0-9) Eosinophils (%) (Auto) 4% (0-3) Basophils (%) (Auto) 1% (0-3) Neutrophils # (Auto) 6.1x10^3uL (1.8-7.7) Lymphocytes # (Auto) 0.6x10^3/uL (1.0-4.8) Monocytes # (Auto) 0.6x10^3/uL (0.0-1.1) Eosinophils # (Auto) 0.3x10^3/uL (0.0-0.7) Basophils # (Auto) 0.1x10^3/uL (0.0-0.2) Prothrombin Time 15.6SEC (11.7-14.0) Prothromb Time International Ratio 1.3 (0.8-1.1) Medications Active Scripts Medications Dose Route/Sig Days Date Category Zofran Odt (Ondansetron) 4 Mg Tab.rapdis 1 Tab SL Q8HRS PRN 10/28/15 Rx Percocet 7.5-325 Mg Tablet (Oxycodone/Acetaminophen) 1 Each Tablet 1 Tab PO PRN Q8HRS PRN 08/30/14 Reported Xanax (Alprazolam) 0.25 Mg Tablet 2 Mg PO TID PRN 11/10/13 Reported Metoprolol Succinate ( Xl ) (Metoprolol Succinate) 200 Mg Tab.er.24h 1 Tab PO DAILY 11/10/13 Reported Hydralazine Hcl 50 Mg Tablet 1 Tab PO TID 11/10/13 Reported Amlodipine Besylate 10 Mg Tablet 1 Tab PO DAILY 11/10/13 Reported Impression . ACUTE RESP FAILURE SEC TO PEA, RESOLVED PEA SUSPECT ACIDOSIS VS HYPOVOLEMIA/HYPERKALEMIA, RESOLVED ESRD/HD S/P HIP REPAIR WORSENING CXR , SUSPECT CHF, CANNOT EXCLUDE PNEUMONIA Plan . Nasal canula HD with UF labs reviewed / CXR 05/28 reviewed. increase volume loss LLL, clinically stable antibiotic per ID consider LTAC SINDY SORENSEN MD May 28, 2016 16:23
[2016-05-28] MEDS: ONDANSETRON PF 4 MG/2 ML VIAL. IV PRN (18:25)
[2016-05-28 19:56] VITALS: BP 156/105
[2016-05-28 23:50] VITALS: BP 143/101
[2016-05-29] MEDS: DIPHENHYDRAMINE 50 MG/ML VIAL IVP PRN ×3 (00:40→16:28)
[2016-05-29] MEDS: FENTANYL PF 100 MCG/2 ML VIAL. IV PRN ×5 (02:20→17:48)
[2016-05-29 03:39] VITALS: BP 147/104
[2016-05-29 07:00] VITALS: BP 144/96
[2016-05-29] MEDS: FERROUS SULFATE 325 MG TABLET PO SCH ×2 (08:00→17:00)
[2016-05-29] MEDS: OXYCODONE IR 5 MG TABLET. PO SCH ×2 (08:45→14:00)
[2016-05-29] MEDS ORDERED: IV NORMAL SALINE 1000ML BAG 1,000 ML IV PRN (08:57)
[2016-05-29] MEDS ORDERED: DIPHENHYDRAMINE 50 MG/ML VIAL IV PRN ×2 (09:00)
[2016-05-29] MEDS ORDERED: ALBUMIN HUMAN 25% 200 ML IV PRN (09:00)
[2016-05-29] MEDS: HYDRALAZINE 50 MG TABLET PO SCH ×2 (09:00→16:04)
[2016-05-29] MEDS ORDERED: DIALYSIS PATIENT. MC PRN (09:00)
[2016-05-29] MEDS ORDERED: ACETAMINOPHEN 500 MG TABLET PO PRN (09:00)
[2016-05-29] MEDS: METOPROLOL SUCC 24HR ER 100 MG TAB.ER.24H. PO SCH (09:00)
[2016-05-29] MEDS: MULTIVITAMIN with MINERAL TABLET. PO SCH (09:00)
[2016-05-29] MEDS: POLYETHYLENE GLYCOL 3350 17 GM PACKET. PO SCH (09:00)
[2016-05-29] MEDS: LISINOPRIL 20 MG TABLET PO SCH (09:00)
[2016-05-29] MEDS: AMLODIPINE BESYLATE 10 MG TABLET PO SCH (09:13)
[2016-05-29] MEDS ORDERED: DIPHENHYDRAMINE 50 MG/ML VIAL IVP ONE (10:00)
--- NOTE | 2016-05-29 12:19 | PDOC ---
PULMONARY PROGRESS NOTES Subjective no resp distress Vitals Vital Signs Date Time Temp Pulse Resp B/P Pulse Ox O2 Delivery O2 Flow Rate FiO2 05/29/16 10:21 16 98 Nasal Cannula 2.0 05/29/16 07:00 98.6 96 144/96 98.6 ROS: No Nausea, No Abdominal Pain, No Increase Cough General: Alert Lungs: Other (few crackles post) Cardiovascular: S1, S2 Abdomen: Soft, Non-tender Neuro Exam: Alert Extremities: No Edema Skin: Warm Medications Active Scripts Medications Dose Route/Sig Days Date Category Zofran Odt (Ondansetron) 4 Mg Tab.rapdis 1 Tab SL Q8HRS PRN 10/28/15 Rx Percocet 7.5-325 Mg Tablet (Oxycodone/Acetaminophen) 1 Each Tablet 1 Tab PO PRN Q8HRS PRN 08/30/14 Reported Xanax (Alprazolam) 0.25 Mg Tablet 2 Mg PO TID PRN 11/10/13 Reported Metoprolol Succinate ( Xl ) (Metoprolol Succinate) 200 Mg Tab.er.24h 1 Tab PO DAILY 11/10/13 Reported Hydralazine Hcl 50 Mg Tablet 1 Tab PO TID 11/10/13 Reported Amlodipine Besylate 10 Mg Tablet 1 Tab PO DAILY 11/10/13 Reported Impression . ACUTE RESP FAILURE SEC TO PEA, RESOLVED PEA SUSPECT ACIDOSIS VS HYPOVOLEMIA/HYPERKALEMIA, RESOLVED ESRD/HD S/P HIP REPAIR WORSENING CXR , SUSPECT CHF, CANNOT EXCLUDE PNEUMONIA Plan . Nasal canula HD with UF labs reviewed / CXR 05/28 reviewed. increase volume loss LLL, clinically stable antibiotic per ID ok with LTAC today SINDY SORENSEN MD May 29, 2016 12:19
[2016-05-29 12:29] LABS: INR 1.3 (0.8-1.1); PROTHROMBIN TIME PATIENT 15.3 SEC (11.7-14.0)
[2016-05-29] MEDS ORDERED: WARFARIN 3 MG TABLET. PO ONE (14:00)
[2016-05-29 15:00] VITALS: BP 146/99
--- NOTE | 2016-05-29 15:01 | PDOC ---
PROGRESS NOTES Chief Complaint Chief Complaint after hip replacement with rib fx S/P code blue 1. Abdominal pain; chronic, unclear etiology 2. Narcotic dependence. 3. Hx osteomyelitis, and replaced hip hardware. 4. elevated Alk Phos; isolated. 5. ESRD: HD tts 6. Anemia; severe, 2/2 ESRD. 7. acute resp failure with fluid overloaded with ESRD and possible PNA 8. left ARM AVF thrombosis 9. non compliance, wants to go home if not getting pain meds 10.HTN with hypotention now i talked to pt today who eventually agreed to take po opoids from [facility] ( c/o abd pain taking pills), and go to [facility]. Pt refused us to talk to her Mother who likely refused to take care of home as per nurse. Pt later got upset with the nurse and wanted to sign AMA, dr. Priest talked to pt and pt is calm now. worsening CXR 2/2 fluid overloaded vs. infection, on NC 4L now, slightly better , no abx as per ID. History of Present Illness History of Present Illness try to transfer to LTAC, today - PRN duonebs breathing treatment - cont supplemental O2 - s/p thrombectomy of the L arm - Pulmonology following, - PTOT, she has a wheelchair at home, she is assist to chair now, - cont narcotics for hip and rib pain - cont IV Zofran for nausea - cont Benadryl for itchiness cont zosyn , repeated cxr left femoral HD cath HD today recent 2 u PRBC transfusion 3 a. Vitals Vitals Vital Signs Date Time Temp Pulse Resp B/P Pulse Ox O2 Delivery O2 Flow Rate FiO2 05/29/16 10:21 16 98 Nasal Cannula 2.0 05/29/16 07:00 98.6 96 144/96 98.6 Physical Exam General: Alert, Oriented X3, Cooperative, No acute distress, Other (lethargic after HD) Heart: Regular rate, Normal S1, Normal S2, No murmurs, Gallops Lungs: Other (few crackles post) Abdomen: Normal bowel sounds, Soft, No tenderness, No hepatosplenomegaly, No masses Extremities: No edema Skin: No rashes Labs LABS Laboratory Tests Test 05/29/16 11:40 Hemoglobin 9.4g/dL (12.0-15.5) Prothrombin Time 15.3SEC (11.7-14.0) Prothromb Time International Ratio 1.3 (0.8-1.1) Magnesium Level 2.0mg/dL (1.8-2.4) Assessment and Plan Assessmemt and Plan Problems Medical Problems: (1) Abdominal pain Status: Acute (2) ESRD (end stage renal disease) Status: Acute (3) Hip fracture, right Status: Acute (4) Infection and inflammatory reaction due to internal right hip prosthesis, subsequent encounter Status: Acute (5) Intractable abdominal pain Status: Acute (6) Nausea & vomiting Status: Acute Problems: Comment Review of Relevant I have reviewed the following items lynnette (where applicable) has been applied. Labs Laboratory Tests Test 05/29/16 11:40 Hemoglobin 9.4g/dL (12.0-15.5) Prothrombin Time 15.3SEC (11.7-14.0) Prothromb Time International Ratio 1.3 (0.8-1.1) Magnesium Level 2.0mg/dL (1.8-2.4) Laboratory Tests Test 05/29/16 11:40 Hemoglobin 9.4g/dL (12.0-15.5) Prothrombin Time 15.3SEC (11.7-14.0) Prothromb Time International Ratio 1.3 (0.8-1.1) Magnesium Level 2.0mg/dL (1.8-2.4) Medications Current Medications Ondansetron HCl (Zofran) 4 mg 1X ONCE IV Last administered on 05/15/16 19:17 ; Start 05/15/16 at 19:00; Stop 05/15/16 at 19:01; Status DC Morphine Sulfate 4 mg 1X ONCE IV Last administered on 05/15/16 19:19; Start 05/15/16 at 19:00; Stop 05/15/16 at 19:01; Status DC Hydralazine HCl (Apresoline) 10 mg 1X ONCE IVP Last administered on 05/15/16 19:21; Start 05/15/16 at 19:00; Stop 05/15/16 at 19:01; Status DC Lorazepam (Ativan) 1 mg 1X ONCE PO Last administered on 05/15/16 20:04; Start 05/15/16 at 19:45; Stop 05/15/16 at 19:46; Status DC Alprazolam (Xanax) 2 mg PRN TID PRN PO ANXIETY / AGITATION; Start 05/15/16 at 20:45; Stop 05/15/16 at 20:47; Status DC Amlodipine Besylate (Norvasc) 10 mg DAILY PO Last administered on 05/28/16 14: 20; Start 05/16/16 at 09:00 Hydralazine HCl (Apresoline) 50 mg TID PO Last administered on 05/28/16 14:19 ; Start 05/16/16 at 09:00 Ondansetron HCl (Zofran Odt) 4 mg PRN Q8HRS PRN PO NAUSEA; Start 05/15/16 at 20 :45; Stop 05/21/16 at 10:18; Status DC Oxycodone/ Acetaminophen (Percocet 7.5/ 325) 1 tab PRN Q8HRS PRN PO PAIN; Start 05/15/16 at 20:45; Status Cancel Metoprolol Succinate (Toprol Xl) 200 mg DAILY PO Last administered on 14:18; Start 05/16/16 at 09:00 Alprazolam (Xanax) 2 mg PRN TID PRN PO ANXIETY / AGITATION Last administered on 05/25/16 12:33; Start 05/15/16 at 20:47 Morphine Sulfate 4 mg 1X ONCE IV Last administered on 05/15/16 21:13; Start 05/15/16 at 21:00; Stop 05/15/16 at 21:01; Status DC Ondansetron HCl (Zofran) 4 mg 1X ONCE IV Last administered on 05/15/16 21:08 ; Start 05/15/16 at 21:00; Stop 05/15/16 at 21:01; Status DC Labetalol HCl (Normodyne) 20 mg PRN Q6HRS PRN IVP HYPERTENSION, SEE COMMENTS Last administered on 05/25/16 10:08; Start 05/15/16 at 23:30 Lorazepam (Ativan) 1 mg PRN Q6HRS PRN IV ANXIETY / AGITATION Last administered on 05/16/16 20:22; Start 05/15/16 at 23:30; Stop 05/16/16 at 22:44; Status DC Morphine Sulfate 2 mg PRN Q2HR PRN IV PAIN Last administered on 05/16/16 10:52 ; Start 05/15/16 at 23:30; Stop 05/16/16 at 11:42; Status DC Morphine Sulfate 4 mg PRN Q2HR PRN IV PAIN; Start 05/15/16 at 23:30; Stop 05/16 at 11:42; Status DC Diphenhydramine HCl (Benadryl) 50 mg PRN Q6HRS PRN IVP ITCHING Last administered on 05/16/16 20:23; Start 05/15/16 at 23:30; Stop 05/16/16 at 22:44 ; Status DC Morphine Sulfate 1 mg PRN Q2HR PRN IV PAIN Last administered on 05/17/16 18:38 ; Start 05/16/16 at 11:45; Stop 05/21/16 at 10:18; Status DC Diphenhydramine HCl (Benadryl) 25 mg PRN Q8HRS PRN IVP ITCHING Last administered on 05/18/16 04:54; Start 05/16/16 at 23:30; Stop 05/18/16 at 15:51 ; Status DC Lorazepam (Ativan) 0.5 mg PRN Q8HRS PRN IV ANXIETY / AGITATION Last administered on 05/28/16 20:54; Start 05/16/16 at 23:30 Metoclopramide HCl (Reglan) 5 mg PRN Q8HRS PRN IV NAUSEA/VOMITING Last administered on 05/22/16 19:45; Start 05/16/16 at 22:45 Polyethylene Glycol (miraLAX PACKET) 17 gm BID PO ; Start 05/17/16 at 09:00 Lidocaine HCl 2 ml 2 ml STPairy-MED ONCE .ROUTE ; Start 05/17/16 at 11:20; Stop at 11:21; Status DC Sodium Chloride (Iv Sodium Chloride 0.9% 1000ml Bag) 1,000 ml @ 1,000 mls/hr Q1H PRN IV hypotension; Start 05/17/16 at 12:42; Stop 05/17/16 at 18:41; Status DC Diphenhydramine HCl (Benadryl) 25 mg 1X PRN PRN IV ITCHING; Start 05/17/16 at 12:45; Stop 05/18/16 at 12:44; Status DC Diphenhydramine HCl (Benadryl) 25 mg 1X PRN PRN IV ITCHING; Start 05/17/16 at 12:45; Stop 05/18/16 at 12:44; Status DC Info (PHARMACY MONITORING -- do not chart) 1 each PRN DAILY PRN MC SEE COMMENTS ; Start 05/17/16 at 12:45; Status UNV Info 1 each 1 each PRN DAILY PRN MC SEE COMMENTS; Start 05/17/16 at 12:45; Status UNV Morphine Sulfate/ Ketorolac Tromethamine/ Ropivacaine/ Epinephrine HCl/ Sodium Chloride (Morphine 5mg Syringe/Toradol/ Naropin 0.5%/ Adrenalin/Iv Sodium Chloride 0.9% 100ml) 100.5 ml @ 100.5 mls/ hr 1X PERIOP ONCE INT ART Last administered on 05/18/16 08:20; Start 05/18/16 at 06:00; Stop 05/18/16 at 06:59 ; Status DC Ondansetron HCl (Zofran) 4 mg PRN Q6HRS PRN IV Nausea; Start 05/18/16 at 07:00 ; Stop 05/19/16 at 06:59; Status DC Fentanyl Citrate (Fentanyl 2ml Vial) 25 mcg PRN Q5MIN PRN IV MILD PAIN Last administered on 05/18/16 16:42; Start 05/18/16 at 07:00; Stop 05/19/16 at 06:59 ; Status DC Fentanyl Citrate (Fentanyl 2ml Vial) 50 mcg PRN Q5MIN PRN IV MODERATE PAIN Last administered on 05/19/16 02:10; Start 05/18/16 at 07:00; Stop 05/19/16 at 06 :59; Status DC Morphine Sulfate 1 mg PRN Q10MIN PRN IV SEVERE PAIN; Start 05/18/16 at 07:00; Stop 05/19/16 at 06:59; Status DC Lidocaine HCl 2 ml 1X PRN PRN ID IV START; Start 05/18/16 at 07:00; Stop at 06:59; Status DC Hydromorphone HCl (Dilaudid) 0.5 mg PRN Q10MIN PRN IV SEVERE PAIN, Second choice Last administered on 3/1/17at 00:53; Start 05/18/16 at 07:00; Stop at 06:59; Status DC Prochlorperazine Edisylate 5 mg 5 mg PACU PRN PRN IV NAUSEA; Start 05/18/16 at 07:00; Stop 05/19/16 at 06:59; Status DC Sodium Chloride (Iv Sodium Chloride 0.9% 1000ml Bag) 1,000 ml @ 30 mls/hr Q24H IV ; Start 05/18/16 at 07:00; Stop 05/19/16 at 07:48; Status DC Warfarin Sodium (Coumadin) 5 mg 1X ONCE PO Last administered on 05/17/16t 16: 31; Start 05/17/16 at 17:00; Stop 05/17/16 at 17:01; Status DC Acetaminophen/ Hydrocodone Bitart (Lortab 7.5/325) 2 tab 1X ONCE PO ; Start at 05:30; Stop 05/18/16 at 05:31; Status Cancel Acetaminophen/ Hydrocodone Bitart 2 tab 2 tab 1X PREOP PRN PO PRIOR TO PROCEDURE; Start 05/18/16 at 06:00; Stop 05/18/16 at 18:00; Status DC Cefazolin Sodium/ Dextrose 50 ml @ 100 mls/hr 1X PREOP PRN IV PRIOR TO PROCEDURE; Start 05/18/16 at 06:00; Stop 05/18/16 at 18:00; Status DC Morphine Sulfate/ Ketorolac Tromethamine/ Ropivacaine/ Epinephrine HCl/ Sodium Chloride (Morphine 5mg Syringe/Toradol/ Naropin 0.5%/ Adrenalin/Iv Sodium Chloride 0.9% 50ml) 100.5 ml @ 100.5 mls/ hr 1X PERIOP ONCE INT ART ; Start at 06:00; Stop 05/18/16 at 06:59; Status Cancel Dexamethasone Sodium Phosphate (Decadron) 20 mg STK-MED ONCE .ROUTE ; Start at 06:57; Stop 05/18/16 at 06:58; Status DC Ondansetron HCl 4 mg 4 mg STK-MED ONCE .ROUTE ; Start 05/18/16 at 06:57; Stop at 06:58; Status DC Propofol (Diprivan) 20 ml @ As Directed STK-MED ONCE IV ; Start 05/18/16 at 06: 57; Stop 05/18/16 at 06:58; Status DC Lidocaine HCl 100 mg STK-MED ONCE .ROUTE ; Start 05/18/16 at 06:57; Stop at 06:58; Status DC Fentanyl Citrate (Fentanyl 5ml Vial) 250 mcg STK-MED ONCE .ROUTE ; Start at 06:57; Stop 05/18/16 at 06:58; Status DC Midazolam HCl (Versed) 2 mg STK-MED ONCE .ROUTE ; Start 05/18/16 at 06:58; Stop 05/18/16 at 06:59; Status DC Rocuronium [place] 50 mg 50 mg STK-MED ONCE .ROUTE ; Start 05/18/16 at 06:58; Stop 05/18/16 at 06:59; Status DC Acetaminophen 100 ml @ As Directed STK-MED ONCE IV ; Start 05/18/16 at 07:13; Stop 05/18/16 at 07:14; Status DC Sodium Chloride 500 ml @ 30 mls/hr [id number] IV Last administered on 05/18/16 07:45; Start 05/18/16 at 07:45; Stop 05/19/16 at 07:48; Status DC Cefazolin Sodium (Ancef 1gm Ivpb For Omni) 50 ml @ As Directed STK-MED ONCE IV ; Start 05/18/16 at 07:45; Stop 05/18/16 at 07:46; Status DC Fentanyl Citrate (Fentanyl 5ml Vial) 250 mcg STK-MED ONCE .ROUTE ; Start at 08:27; Stop 05/18/16 at 08:28; Status DC Rocuronium [place] (Zemuron) 50 mg STK-MED ONCE .ROUTE ; Start 05/18/16 at 08:27 ; Stop 05/18/16 at 08:28; Status DC Morphine Sulfate 5 mg 5 mg STK-MED ONCE .ROUTE ; Start 05/18/16 at 08:59; Stop 05/18/16 at 09:00; Status DC Cefazolin Sodium (Ancef 1gm Ivpb For Omni) 50 ml @ 100 mls/hr 1X PREOP PRN IV PER PROTOCOL Last administered on 05/18/16 08:06; Start 05/18/16 at 09:30; Stop 05/19/16 at 09:29; Status DC Lisinopril (Prinivil) 20 mg DAILY PO Last administered on 05/28/16t 14:19; Start 05/18/16 at 11:30 Albuterol Sulfate (Ventolin Neb Soln) 2.5 mg STK-MED ONCE .ROUTE ; Start at 11:24; Stop 05/18/16 at 11:25; Status DC Morphine Sulfate 10 mg STK-MED ONCE .ROUTE ; Start 05/18/16 at 11:55; Stop 05/18 at 11:56; Status DC Cefazolin Sodium/ Dextrose 2 gm 2 gm STK-MED ONCE IV ; Start 05/18/16 at 07:30; Stop 05/18/16 at 12:41; Status DC Cefazolin Sodium (Ancef 1gm Ivpb For Omni) 50 ml @ As Directed STK-MED ONCE IV ; Start 05/18/16 at 13:02; Stop 05/18/16 at 13:03; Status DC Fentanyl Citrate (Fentanyl 5ml Vial) 250 mcg STK-MED ONCE .ROUTE ; Start at 13:27; Stop 05/18/16 at 13:28; Status DC Phenylephrine HCl 1 mg STK-MED ONCE IV ; Start 05/18/16 at 13:58; Stop 05/18/16 at 13:59; Status DC Insulin Human Regular (Novolin R Vial) 10 unit 1X ONCE IV ; Start 05/18/16 at 14:15; Stop 05/18/16 at 14:16; Status DC Acetaminophen/ Hydrocodone Bitart (Lortab 7.5/325) 1 tab PRN Q3HRS PRN PO PAIN ; Start 05/18/16 at 15:45; Stop 05/21/16 at 10:18; Status DC Acetaminophen/ Hydrocodone Bitart (Lortab 10/325) 1 tab PRN Q3HRS PRN PO PAIN; Start 05/18/16 at 15:45; Stop 05/28/16 at 08:37; Status DC Tramadol HCl (Ultram) 50 mg PRN QID PRN PO PAIN; Start 05/18/16 at 15:45; Stop 05/21/16 at 10:18; Status DC Oxycodone/ Acetaminophen (Percocet 5/325) 1 tab PRN Q3HRS PRN PO PAIN; Start at 15:45; Stop 05/28/16 at 08:37; Status DC Oxycodone/ Acetaminophen (Percocet 7.5/ 325) 1 tab PRN Q3HRS PRN PO PAIN; Start 05/18/16 at 15:45; Stop 05/28/16 at 08:37; Status DC Tramadol HCl (Ultram) 100 mg PRN Q3HRS PRN PO PAIN; Start 05/18/16 at 15:45 Morphine Sulfate 2 mg PRN Q1HR PRN IV PAIN; Start 05/18/16 at 15:45; Stop at 10:40; Status DC Fentanyl Citrate (Fentanyl 2ml Vial) 25 mcg PRN Q1HR PRN IV PAIN Last administered on 05/20/16 21:37; Start 05/18/16 at 15:45; Stop 05/21/16 at 10:18; Status DC Diphenhydramine HCl (Benadryl) 25 mg PRN Q6HRS PRN IV ITCHING Last administered on 05/21/16 10:08; Start 05/18/16 at 15:45; Stop 05/21/16 at 10:43; Status DC Warfarin Sodium (Coumadin Per Pharmacy) 1 each PRN DAILY PRN MC SEE COMMENTS Last administered on 05/29/16 13:58; Start 05/18/16 at 15:45 Multivitamins/ Calcium (Thera M Plus) 1 tab DAILY PO Last administered on 14:20; Start 05/19/16 at 09:00 Senna/Docusate Sodium (Senna Plus) 1 tab DAILY PO Last administered on 14:20; Start 05/19/16 at 09:00 Ferrous Sulfate 325 mg 325 mg BIDWMEALS PO Last administered on 05/28/16 14:20 ; Start 05/18/16 at 17:00 Dextrose/Sodium Chloride (Iv D5% - 1/2 NS) 1,000 ml @ 100 mls/hr Q10H IV ; Start 05/18/16 at 15:31; Stop 05/19/16 at 07:48; Status DC Magnesium Hydroxide (Milk Of Magnesia) 2,400 mg 1X PRN PRN PO CONSTIPATION; Start 05/19/16 at 06:00; Stop 05/20/16 at 05:59; Status DC Bisacodyl (Dulcolax Supp) 10 mg 1X PRN PRN [place] CONSTIPATION; Start 05/19/16 at 16 :00; Stop 05/20/16 at 15:59; Status DC Acetaminophen (Tylenol) 650 mg PRN Q4HRS PRN PO MILD PAIN / TEMP Last administered on 05/25/16 12:33; Start 05/18/16 at 15:45 Zolpidem Tartrate (Ambien) 5 mg PRN QHS PRN PO INSOMNIA, MAY REPEAT IN 1HR Last administered on 05/19/16 21:06; Start 05/18/16 at 15:45 Calcium Carbonate/ Glycine (Tums) 500 mg PRN QID PRN PO INDIGESTION; Start at 15:45 Morphine Sulfate 4 mg PRN Q1HR PRN IV PAIN Last administered on 05/21/16 08:11 ; Start 05/18/16 at 15:45; Stop 05/21/16 at 10:40; Status DC Morphine Sulfate 6 mg PRN Q1HR PRN IV PAIN Last administered on 05/20/16 20:04 ; Start 05/18/16 at 15:45; Stop 05/21/16 at 10:18; Status DC Morphine Sulfate 8 mg PRN Q1HR PRN IV PAIN; Start 05/18/16 at 15:45; Stop at 10:18; Status DC Sodium Chloride (Normal Saline Flush) 10 ml QSHIFT PRN IV AFTER MEDS AND BLOOD DRAWS; Start 05/18/16 at 15:45; Stop 05/21/16 at 07:32; Status DC Fentanyl Citrate (Fentanyl 2ml Vial) 50 mcg PRN Q1HR PRN IV PAIN Last administered on 05/21/16 10:09; Start 05/18/16 at 15:45; Stop 05/21/16 at 10:40; Status DC Prochlorperazine Edisylate (Compazine) 10 mg PRN Q4HRS PRN IV NAUSEA/VOMITING; Start 05/18/16 at 15:45 Dextrose 12.5 gm 12.5 gm PRN Q15MIN PRN IV SEE COMMENTS; Start 05/18/16 at 15: 45 Cefazolin Sodium/ Sodium Chloride (Ancef/Iv Sodium Chloride 0.9% 50ml) 50 ml @ 100 mls/hr Q6H IV Last administered on 05/19/16 05:00; Start 05/18/16 at 16:00 ; Stop 05/19/16 at 04:29; Status DC Warfarin Sodium (Coumadin) 5 mg 1X WARF ONCE PO ; Start 05/18/16 at 16:00; Stop 05/18/16 at 16:01; Status DC Lidocaine/Sodium Bicarbonate 20 ml 20 ml STK-MED ONCE IJ ; Start 05/18/16 at 16: 51; Stop 05/18/16 at 16:52; Status DC Heparin Sodium/ Sodium Chloride 500 ml @ As Directed STK-MED ONCE .ROUTE ; Start 05/18/16 at 16:51; Stop 05/18/16 at 16:52; Status DC Heparin Sodium (Porcine) 18464 unit 10,000 unit STK-MED ONCE .ROUTE ; Start at 16:52; Stop 05/18/16 at 16:53; Status DC Sodium Chloride (Iv Sodium Chloride 0.9% 1000ml Bag) 1,000 ml @ 1,000 mls/hr Q1H PRN IV hypotension; Start 05/18/16 at 17:23; Stop 05/18/16 at 23:22; Status DC Diphenhydramine HCl (Benadryl) 75 mg 1X PRN PRN IV ITCHING; Start 05/18/16 at 17:30; Stop 05/19/16 at 17:29; Status DC Info (PHARMACY MONITORING -- do not chart) 1 each PRN DAILY PRN MC SEE COMMENTS Last administered on 05/24/16 11:02; Start 05/18/16 at 17:30 Info (PHARMACY MONITORING -- do not chart) 1 each PRN DAILY PRN MC SEE COMMENTS ; Start 05/18/16 at 17:30; Status UNV Lidocaine/Sodium Bicarbonate (Buffered Lidocaine 1%) 3 ml 1X ONCE IJ Last administered on 05/18/16 17:34; Start 05/18/16 at 17:30; Stop 05/18/16 at 17:34 ; Status DC Heparin Sodium/ Sodium Chloride 60 unit 1X ONCE IV ; Start 05/18/16 at 17:30; Stop 05/18/16 at 17:34; Status DC Insulin Aspart (Novolog Vial) 10 unit 1X ONCE SQ ; Start 05/18/16 at 18:30; Stop 05/18/16 at 18:31; Status Cancel Insulin Human Regular 10 unit 10 unit 1X ONCE IV ; Start 05/18/16 at 19:00; Stop 05/18/16 at 19:01; Status DC Propofol (Diprivan) 100 ml @ 0 mls/hr CONT PRN IV . Last administered on 02:10; Start 05/18/16 at 19:00; Stop 05/21/16 at 07:32; Status DC Darbepoetin Jude (Aranesp) 60 mcg WEEKLYHS SQ ; Start 05/19/16 at 21:00; Stop 01/04 at 08:52; Status DC Diphenhydramine HCl (Benadryl) 50 mg 1X ONCE IM Last administered on 05/19/16 13:27; Start 05/19/16 at 13:15; Stop 05/19/16 at 13:16; Status DC Warfarin Sodium (Coumadin - No Dose Today) 1 each 1X WARF ONCE MC ; Start at 16:00; Stop 05/19/16 at 16:01; Status DC Hydralazine HCl (Apresoline) 10 mg PRN Q4HRS PRN IVP ELEVATED BP, SEE COMMENTS Last administered on 05/24/16 21:55; Start 05/19/16 at 16:15 Amlodipine Besylate (Norvasc) 10 mg 1X ONCE PO Last administered on 05/19/16 17:34; Start 05/19/16 at 17:30; Stop 05/19/16 at 17:31; Status DC Lisinopril (Prinivil) 20 mg 1X ONCE PO Last administered on 05/19/16 17:34; Start 05/19/16 at 17:30; Stop 05/19/16 at 17:31; Status DC Metoprolol Succinate (Toprol Xl) 200 mg 1X ONCE PO Last administered on 17:34; Start 05/19/16 at 17:30; Stop 05/19/16 at 17:31; Status DC Lidocaine HCl 2 ml 2 ml STK-MED ONCE .ROUTE ; Start 05/20/16 at 08:19; Stop at 08:20; Status DC Sodium Chloride (Iv Sodium Chloride 0.9% 1000ml Bag) 1,000 ml @ 1,000 mls/hr Q1H PRN IV hypotension; Start 05/20/16 at 09:24; Stop 05/20/16 at 15:23; Status DC Diphenhydramine HCl (Benadryl) 25 mg 1X PRN PRN IV ITCHING Last administered on 05/20/16 09:36; Start 05/20/16 at 09:30; Stop 05/21/16 at 07:32; Status DC Diphenhydramine HCl (Benadryl) 25 mg 1X PRN PRN IV ITCHING Last administered on 05/20/16 09:59; Start 05/20/16 at 09:30; Stop 05/21/16 at 07:32; Status DC Sodium Chloride (Normal Saline Flush) 10 ml 1X PRN PRN IV AP catheter pack; Start 05/20/16 at 09:30; Stop 05/21/16 at 09:29; Status DC Sodium Chloride (Normal Saline Flush) 10 ml 1X PRN PRN IV OPERATIONAL RISK ANALYST catheter pack; Start 05/20/16 at 09:30; Stop 05/21/16 at 09:29; Status DC Info (PHARMACY MONITORING -- do not chart) 1 each PRN DAILY PRN MC SEE COMMENTS ; Start 05/20/16 at 09:30; Stop 05/20/16 at 09:31; Status DC Info (PHARMACY MONITORING -- do not chart) 1 each PRN DAILY PRN MC SEE COMMENTS ; Start 05/20/16 at 09:30; Status Cancel Warfarin Sodium (Coumadin) 3 mg 1X WARF ONCE PO Last administered on 05/20/16 16:26; Start 05/20/16 at 16:00; Stop 05/20/16 at 16:01; Status DC Dextrose 25 gm STK-MED ONCE IV ; Start 05/19/16 at 12:00; Stop 05/20/16 at 16:10; Status DC Epinephrine HCl 1 mg STK-MED ONCE .ROUTE ; Start 05/19/16 at 12:00; Stop 05/20/16 at 16:10; Status DC Sodium Bicarbonate 50 meq STK-MED ONCE .ROUTE ; Start 05/19/16 at 12:00; Stop 05/20/16 at 16:10; Status DC Diphenhydramine HCl (Benadryl) 50 mg 1X ONCE IVP Last administered on 04:02; Start 05/21/16 at 04:00; Stop 05/21/16 at 10:18; Status DC Lidocaine HCl (Xylocaine-Mpf 1% Vial) 2 ml STK-MED ONCE .ROUTE ; Start 05/20/16 at 08:00; Stop 05/21/16 at 08:00; Status DC Fentanyl Citrate (Fentanyl 2ml Vial) 50 mcg PRN Q3HRS PRN IV PAIN Last administered on 05/29/16 13:45; Start 05/21/16 at 10:27 Morphine Sulfate 2 mg PRN Q3HRS PRN IV PAIN Last administered on 05/25/16 09:07 ; Start 05/21/16 at 10:27; Stop 05/25/16 at 11:44; Status DC Morphine Sulfate 4 mg PRN Q3HRS PRN IV PAIN Last administered on 05/24/16 17:16 ; Start 05/21/16 at 10:27; Stop 05/25/16 at 11:44; Status DC Diphenhydramine HCl (Benadryl) 50 mg PRN Q6HRS PRN IVP itching Last administered on 05/29/16 09:32; Start 05/21/16 at 10:30 Ondansetron HCl (Zofran) 4 mg PRN Q6HRS PRN IV NAUSEA/VOMITING Last administered on 05/28/16 18:25; Start 05/21/16 at 11:15 Warfarin Sodium 3 mg 3 mg 1X WARF ONCE PO Last administered on 05/21/16 15:08 ; Start 05/21/16 at 16:00; Stop 05/21/16 at 16:01; Status DC Sodium Chloride (Iv Sodium Chloride 0.9% 1000ml Bag) 1,000 ml @ 1,000 mls/hr Q1H PRN IV hypotension; Start 05/22/16 at 09:36; Stop 05/22/16 at 15:35; Status DC Diphenhydramine HCl (Benadryl) 25 mg 1X PRN PRN IV ITCHING Last administered on 05/22/16 16:52; Start 05/22/16 at 09:45; Stop 05/22/16 at 19:00; Status DC Sodium Chloride (Normal Saline Flush) 10 ml 1X PRN PRN IV AP catheter pack; Start 05/22/16 at 09:45; Stop 05/22/16 at 19:00; Status DC Sodium Chloride (Normal Saline Flush) 10 ml 1X PRN PRN IV OPERATIONAL RISK ANALYST catheter pack; Start 05/22/16 at 09:45; Stop 05/22/16 at 19:00; Status DC Info (PHARMACY MONITORING -- do not chart) 1 each PRN DAILY PRN MC SEE COMMENTS ; Start 05/22/16 at 09:45; Status UNV Info (PHARMACY MONITORING -- do not chart) 1 each PRN DAILY PRN MC SEE COMMENTS ; Start 05/22/16 at 09:45; Status UNV Warfarin Sodium (Coumadin) 2 mg 1X WARF ONCE PO Last administered on 05/22/16 17:48; Start 05/22/16 at 16:00; Stop 05/22/16 at 16:01; Status DC Warfarin Sodium 2 mg 2 mg 1X WARF ONCE PO Last administered on 05/23/16 15:56 ; Start 05/23/16 at 16:00; Stop 05/23/16 at 16:01; Status DC Ceftriaxone Sodium/Sodium Chloride (Rocephin/Iv Sodium Chloride 0.9% 50ml) 50 ml @ 100 mls/hr Q24H IV Last administered on 05/23/16 15:13; Start 05/23/16 at 15:00; Stop 05/24/16 at 12:53; Status DC Albuterol/ Ipratropium (Duoneb) 3 ml RTQID NEB Last administered on 05/25/16 16 :46; Start 05/23/16 at 16:00; Stop 05/26/16 at 12:08; Status DC Warfarin Sodium (Coumadin) 2 mg 1X WARF ONCE PO ; Start 05/24/16 at 16:00; Stop 05/24/16 at 16:01; Status DC Ondansetron HCl (Zofran) 4 mg PRN Q6HRS PRN IV Nausea; Start 05/25/16 at 07:00; Stop 05/25/16 at 18:00; Status DC Fentanyl Citrate (Fentanyl 2ml Vial) 25 mcg PRN Q5MIN PRN IV MILD PAIN; Start 05/25/16 at 07:00; Stop 05/25/16 at 18:00; Status DC Fentanyl Citrate (Fentanyl 2ml Vial) 50 mcg PRN Q5MIN PRN IV MODERATE PAIN; Start 05/25/16 at 07:00; Stop 05/25/16 at 18:00; Status DC Morphine Sulfate 1 mg 1 mg PRN Q10MIN PRN IV SEVERE PAIN; Start 05/25/16 at 07: 00; Stop 05/25/16 at 18:00; Status DC Lactated Ringer's (Iv Lactated Ringers) 1,000 ml @ 30 mls/hr Q24H IV ; Start at 07:00; Stop 05/25/16 at 18:59; Status DC Lidocaine HCl 2 ml 1X PRN PRN ID IV START; Start 05/25/16 at 07:00; Stop at 18:00; Status DC Hydromorphone HCl (Dilaudid) 0.5 mg PRN Q10MIN PRN IV SEVERE PAIN, Second choice; Start 05/25/16 at 07:00; Stop 05/25/16 at 18:00; Status DC Piperacillin Sod/ Tazobactam Sod 1 each 1 each PRN DAILY PRN MC SEE COMMENTS; Start 05/24/16 at 13:00; Stop 05/28/16 at 11:17; Status DC Piperacillin Sod/ Tazobactam Sod 2.25 gm/Sodium Chloride 50 ml @ 100 mls/hr Q6HRS IV Last administered on 05/27/16t 05:30; Start 05/24/16 at 13:00; Stop 05/27 at 09:38; Status DC Sodium Chloride (Iv Sodium Chloride 0.9% 1000ml Bag) 1,000 ml @ 1,000 mls/hr Q1H PRN IV hypotension; Start 05/24/16 at 13:14; Stop 05/24/16 at 19:13; Status DC Diphenhydramine HCl (Benadryl) 25 mg 1X PRN PRN IV ITCHING; Start 05/24/16 at 13 :15; Stop 05/24/16 at 14:09; Status DC Diphenhydramine HCl (Benadryl) 25 mg 1X PRN PRN IV ITCHING; Start 05/24/16 at 13 :15; Stop 05/24/16 at 14:09; Status DC Sodium Chloride (Normal Saline Flush) 10 ml 1X PRN PRN IV AP catheter pack; Start 05/24/16 at 13:15; Stop 05/25/16 at 13:14; Status DC Sodium Chloride 10 ml 10 ml 1X PRN PRN IV [employer]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[employer]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 catheter pack; Start 05/24/16 at 13 :15; Stop 05/25/16 at 13:14; Status DC Sodium Chloride (Iv Sodium Chloride 0.9% 1000ml Bag) 1,000 ml @ 400 mls/hr Q2H30M PRN IV PATENCY; Start 05/24/16 at 13:14; Stop 05/25/16 at 01:13; Status DC Info (PHARMACY MONITORING -- do not chart) 1 each PRN DAILY PRN MC SEE COMMENTS ; Start 05/24/16 at 13:15; Status UNV Diphenhydramine HCl 75 mg 75 mg 1X ONCE IV Last administered on 05/24/16 14:47 ; Start 05/24/16 at 14:15; Stop 05/24/16 at 14:18; Status DC Sodium Chloride (Iv Sodium Chloride 0.9% 1000ml Bag) 1,000 ml @ 1,000 mls/hr Q1H PRN IV hypotension; Start 05/25/16 at 08:17; Stop 05/25/16 at 14:16; Status DC Diphenhydramine HCl (Benadryl) 25 mg 1X PRN PRN IV ITCHING Last administered on 05/25/16 09:00; Start 05/25/16 at 08:30; Stop 05/26/16 at 08:29; Status DC Diphenhydramine HCl (Benadryl) 25 mg 1X PRN PRN IV ITCHING; Start 05/25/16 at 08 :30; Stop 05/26/16 at 08:29; Status DC Info (PHARMACY MONITORING -- do not chart) 1 each PRN DAILY PRN MC SEE COMMENTS ; Start 05/25/16 at 08:30; Status UNV Warfarin Sodium (Coumadin - No Dose Today) 1 each 1X WARF ONCE MC ; Start at 16:00; Stop 05/25/16 at 16:01; Status DC Diphenhydramine HCl (Benadryl) 25 mg 1X ONCE IVP Last administered on 12:34; Start 05/25/16 at 12:45; Stop 05/25/16 at 12:46; Status DC Morphine Sulfate 4 mg 4 mg PRN Q3HRS PRN IV PAIN Last administered on 05/26/16t 11:33; Start 05/25/16 at 12:45; Stop 05/26/16 at 17:22; Status DC Lactated Ringer's (Iv Lactated Ringers) 1,000 ml @ 50 mls/hr Q20H IV ; Start at 13:00; Stop 05/26/16 at 12:59; Status DC Lidocaine HCl (Xylocaine-Mpf 1% Vial) 2 ml 1X PRN PRN ID FOR PIC LINE INSERTION ; Start 05/26/16 at 08:45; Stop 05/26/16 at 17:22; Status DC Sodium Chloride (Normal Saline Flush) 20 ml 1X PRN PRN IV PER PROTOCOL; Start 05/26/16 at 08:45; Stop 05/27/16 at 08:44; Status DC Lidocaine/ Prilocaine (Emla) 1 noelle 1X ONCE TP ; Start 05/26/16 at 08:45; Stop at 08:46; Status DC Warfarin Sodium (Coumadin) 3 mg 1X WARF ONCE PO ; Start 05/26/16 at 16:00; Stop 05/26/16 at 16:01; Status DC Ondansetron HCl 4 mg 4 mg STK-MED ONCE .ROUTE ; Start 05/26/16 at 11:54; Stop 05/26/16 at 11:55; Status DC Propofol (Diprivan) 20 ml @ As Directed STK-MED ONCE IV ; Start 05/26/16 at 11:54 ; Stop 05/26/16 at 11:55; Status DC Lidocaine HCl 100 mg STK-MED ONCE .ROUTE ; Start 05/26/16 at 11:54; Stop 05/26/16 at 11:55; Status DC Lidocaine/Sodium Bicarbonate 20 ml 20 ml STK-MED ONCE IJ ; Start 05/26/16 at 12: 02; Stop 05/26/16 at 17:22; Status DC Heparin Sodium/ Sodium Chloride 1,000 ml @ As Directed STK-MED ONCE .ROUTE ; Start 05/26/16 at 12:02; Stop 05/26/16 at 12:03; Status DC Iodixanol (Visipaque 320) 100 ml STK-MED ONCE .ROUTE ; Start 05/26/16 at 12:02; Stop 05/26/16 at 12:03; Status DC Albuterol Sulfate (Ventolin Neb Soln) 2.5 mg PRN QID PRN NEB SHORTNESS OF BREATH; Start 05/26/16 at 12:15 Alteplase, Recombinant (Cathflo) 4 mg 1X ONCE IV Last administered on 14:47; Start 05/26/16 at 12:30; Stop 05/26/16 at 12:33; Status DC Heparin Sodium/ Sodium Chloride 1,000 unit 1X ONCE IART Last administered on 14:48; Start 05/26/16 at 13:00; Stop 05/26/16 at 13:01; Status DC Heparin Sodium/ Sodium Chloride 1,000 unit 1X ONCE IART Last administered on 14:49; Start 05/26/16 at 13:00; Stop 05/26/16 at 13:01; Status DC Lidocaine/Sodium Bicarbonate (Buffered Lidocaine 1%) 20 ml 1X ONCE IJ Last administered on 05/26/16 14:48; Start 05/26/16 at 13:00; Stop 05/26/16 at 13:01; Status DC Iodixanol (Visipaque 320) 100 ml 1X ONCE IART Last administered on 05/26/16 14 :48; Start 05/26/16 at 13:00; Stop 05/26/16 at 13:01; Status DC Info (Do NOT chart on this entry -- for MONITORING) 1 each PRN DAILY PRN MC SEE COMMENTS; Start 05/26/16 at 13:00; Stop 05/28/16 at 12:59; Status DC Heparin Sodium (Porcine) 10,000 unit STK-MED ONCE .ROUTE ; Start 05/26/16 at 13: 27; Stop 05/26/16 at 13:28; Status DC Heparin Sodium (Porcine) 2,500 unit 1X ONCE IV Last administered on 05/26/16 14:53; Start 05/26/16 at 13:30; Stop 05/26/16 at 13:38; Status DC Sevoflurane (Ultane) 30 ml STK-MED ONCE IH ; Start 05/26/16 at 15:11; Stop at 15:12; Status DC Ondansetron HCl (Zofran) 4 mg PRN Q6HRS PRN IV Nausea; Start 05/26/16 at 15:30; Stop 05/27/16 at 15:29; Status DC Fentanyl Citrate (Fentanyl 2ml Vial) 25 mcg PRN Q5MIN PRN IV MILD PAIN; Start 05/26/16 at 15:30; Stop 05/27/16 at 15:29; Status DC Fentanyl Citrate (Fentanyl 2ml Vial) 50 mcg PRN Q5MIN PRN IV MODERATE PAIN; Start 05/26/16 at 15:30; Stop 05/27/16 at 15:29; Status DC Morphine Sulfate 1 mg 1 mg PRN Q10MIN PRN IV SEVERE PAIN Last administered on 16:02; Start 05/26/16 at 15:30; Stop 05/26/16 at 17:22; Status DC Lactated Ringer's (Iv Lactated Ringers) 1,000 ml @ 0 mls/hr Q0M IV ; Start 05/26 at 15:21; Stop 05/26/16 at 17:22; Status DC Lidocaine HCl 2 ml 1X PRN PRN ID IV START; Start 05/26/16 at 15:30; Stop at 17:22; Status DC Hydromorphone HCl (Dilaudid) 0.5 mg PRN Q10MIN PRN IV SEV PAIN,Second choice; Start 05/26/16 at 15:30; Stop 05/26/16 at 17:22; Status DC Morphine Sulfate 2 mg PRN Q4HRS PRN IV PAIN Last administered on 05/27/16 06:14 ; Start 05/26/16 at 18:30; Stop 05/27/16 at 11:38; Status DC Info (PHARMACY MONITORING -- do not chart) 1 each PRN DAILY PRN MC SEE COMMENTS ; Start 05/27/16 at 08:00; Status UNV Phenylephrine HCl 1 mg STK-MED ONCE IV ; Start 05/26/16 at 10:00; Stop 05/27/16 at 08:33; Status DC Glycopyrrolate (Robinul) 1 mg STK-MED ONCE .ROUTE ; Start 05/26/16 at 10:00; Stop 05/27/16 at 08:33; Status DC Warfarin Sodium (Coumadin) 5 mg 1X WARF ONCE PO Last administered on 05/27/16 18:19; Start 05/27/16 at 16:00; Stop 05/27/16 at 16:01; Status DC Diphenhydramine HCl (Benadryl) 50 mg 1X ONCE PO Last administered on 05/27/16 11:59; Start 05/27/16 at 11:45; Stop 05/27/16 at 11:46; Status DC Zolpidem Tartrate (Ambien) 5 mg PRN QHS PRN PO INSOMNIA; Start 05/27/16 at 21:30 ; Status UNV Oxycodone HCl (Roxicodone) 10 mg PRN Q6HRS PRN PO PAIN; Start 05/28/16 at 08:45 ; Stop 05/28/16 at 14:00; Status DC Darbepoetin Jude 100 mcg 100 mcg Fr SQ ; Start 06/02/16 at 21:00 Magnesium Sulfate/ Dextrose (Magnesium Sulfate PREMIX 2GM) 50 ml @ 25 mls/hr PRN DAILY PRN IV for Mag < 1.7 on am labs; Start 05/28/16 at 09:00 Diphenhydramine HCl (Benadryl) 50 mg 1X ONCE IVP Last administered on 10:52; Start 05/28/16 at 10:45; Stop 05/28/16 at 10:48; Status DC Fentanyl Citrate (Fentanyl 2ml Vial) 50 mcg 1X ONCE IV Last administered on 10:52; Start 05/28/16 at 10:45; Stop 05/28/16 at 10:48; Status DC Warfarin Sodium (Coumadin) 2 mg 1X WARF ONCE PO Last administered on 17:13; Start 05/28/16 at 16:00; Stop 05/28/16 at 16:01; Status DC Oxycodone HCl 10 mg 10 mg TID PO Last administered on 05/29/16 08:45; Start at 14:00 Sodium Chloride 1,000 ml @ 1,000 mls/hr Q1H PRN IV hypotension; Start 05/29/16 at 08:57; Stop 05/29/16 at 14:56; Status DC Albumin Human (Albuminar) 200 ml @ 200 mls/hr 1X PRN PRN IV Hypotension; Start 05/29/16 at 09:00; Stop 05/29/16 at 14:59; Status DC Acetaminophen (Tylenol) 500 mg 1X PRN PRN PO MILD PAIN / TEMP; Start 05/29/16 at 09:00; Stop 05/29/16 at 19:00 Diphenhydramine HCl (Benadryl) 25 mg 1X PRN PRN IV ITCHING; Start 05/29/16 at 09:00; Stop 05/29/16 at 19:00 Diphenhydramine HCl (Benadryl) 25 mg 1X PRN PRN IV ITCHING; Start 05/29/16 at 09:00; Stop 05/29/16 at 19:00 Info (PHARMACY MONITORING -- do not chart) 1 each PRN DAILY PRN MC SEE COMMENTS ; Start 05/29/16 at 09:00; Status UNV Diphenhydramine HCl (Benadryl) 25 mg 1X ONCE IVP Last administered on t 09:52; Start 05/29/16 at 10:00; Stop 05/29/16 at 10:01; Status DC Warfarin Sodium (Coumadin) 3 mg 1X ONCE PO ; Start 05/29/16 at 14:00; Stop 02/04 at 14:01; Status DC Active Scripts Active Zofran Odt (Ondansetron) 4 Mg Tab.rapdis 1 Tab SL Q8HRS PRN Reported Percocet 7.5-325 Mg Tablet (Oxycodone/Acetaminophen) 1 Each Tablet 1 Tab PO PRN Q8HRS PRN Xanax (Alprazolam) 0.25 Mg Tablet 2 Mg PO TID PRN Metoprolol Succinate ( Xl ) (Metoprolol Succinate) 200 Mg Tab.er.24h 1 Tab PO DAILY Hydralazine Hcl 50 Mg Tablet 1 Tab PO TID Amlodipine Besylate 10 Mg Tablet 1 Tab PO DAILY Vitals/I & O Vital Sign - Last 24 Hours 05/28/16 05/28/16 05/28/16 05/28/16 15:32 17:10 19:56 20:05 Temp 98.2 98.2 Pulse 105 Resp 20 B/P 156/105 Pulse Ox 90 90 93 O2 Delivery Nasal Cannula Nasal Cannula Nasal Cannula Nasal Cannula O2 Flow Rate 3.0 3.0 3.0 3.0 05/28/16 05/28/16 05/28/16 05/28/16 20:08 21:00 23:10 23:50 Temp 98.6 98.6 Pulse 105 78 Resp 20 20 20 B/P 156/105 143/101 Pulse Ox 93 93 94 O2 Delivery Nasal Cannula Nasal Cannula Nasal Cannula O2 Flow Rate 2.0 2.0 3.0 05/29/16 05/29/16 05/29/16 05/29/16 02:20 03:39 06:09 06:40 Temp 98.5 98.5 Pulse 96 Resp 20 16 20 20 B/P 147/104 Pulse Ox 94 96 96 96 O2 Delivery Nasal Cannula Nasal Cannula Nasal Cannula Nasal Cannula O2 Flow Rate 3.0 3.0 3.0 3.0 05/29/16 05/29/16 05/29/16 07:00 07:32 10:21 Temp 98.6 98.6 Pulse 96 Resp 20 16 B/P 144/96 Pulse Ox 97 98 98 O2 Delivery Nasal Cannula Nasal Cannula Nasal Cannula O2 Flow Rate 3.0 2.0 2.0 Intake and Output 05/28/16 05/28/16 05/29/16 15:00 23:00 07:00 Intake Total 150 ml Output Total 0 ml Balance 150 ml DIONICIO TIMMONS MD May 29, 2016 15:01
[2016-05-29] MEDS: LORAZEPAM 2 MG/ML VIAL IV PRN (15:49)
--- NOTE | 2016-05-29 15:55 | PDOC ---
Provider Note Provider Note RENAL DIALYSIS / [facility] done. F180 / HCO3 / K per protocol Qb 450 ml/min Qd 600 ml/min UF to dry weight. Well tolerated. No complications. CPM. VSS. Labs reviewed. Supportive care. Arias Hinds M.D. ARIAS HINDS MD May 29, 2016 15:55
[2016-05-29 16:04] VITALS: BP 146/99
[2016-06-02] MEDS ORDERED: DARBEPOETIN ALFA 100 MCG/0.5 ML DISP.SYRIN. SQ SCH (21:00)
--- NOTE | 2016-06-05 22:15 | CONS ---
DATE OF CONSULTATION: 05/27/2016 REQUESTING PHYSICIAN: Dr. York. REASON FOR CONSULTATION: Need for long-term antibiotics and/or IV access. Pt was seen and dictated on 05/27/16 but it was not transcribed completely hence this is re dictation. HISTORY OF PRESENT ILLNESS: This is a 26-year-old female with end-stage renal disease, on hemodialysis who was admitted for abdominal pain. The patient had gone evaluation for that. The patient also was found to have a hip problem which she has had surgeries done in in February. There is a questionable infection in the hip. The patient was treated with cefazolin for long-term and then recently she had been off antibiotics. Since the hospitalization for abdominal pain, she was put on Zosyn that she has been getting it for pulmonary infiltrate although pulmonary infiltrate cleared after dialysis. The patient did not have any fever. No nausea, vomiting, diarrhea or leukocytosis. The patient also in this hospitalization underwent hip replacement done and the patient was even allowed to put weight on the leg, but she continued to be nonambulatory because of concern with the pain. PAST MEDICAL HISTORY: Positive for end-stage renal disease, on hemodialysis and multiple hip surgeries done after trauma, questionable infection, which was treated she says and another surgery and now replacement done here. The patient does have pain medication problem also. SOCIAL HISTORY: Negative for smoking, alcohol, illicit drug use. ALLERGIES: No known drug allergies. ROS : as per HPI, rest neg CURRENT MEDICATIONS: The patient was on Zosyn. Rest of the medications reviewed. PHYSICAL EXAMINATION: GENERAL: Alert, oriented female, not in distress. VITAL SIGNS: Stable, afebrile. HEENT: NAD. NECK: Supple, no JVP, no lymphadenopathy. LUNGS: Clear. HEART: S1, S2 regular. ABDOMEN: Benign. EXTREMITIES: No edema or cyanosis. SKIN: Unremarkable. The patient's right hip incision was unremarkable. LABORATORY DATA: Reviewed. White count was normal. BUN and creatinine were 24 and 4.2. Culture and x-rays of the hip reviewed. Chest x-ray also reviewed. IMPRESSION: 1. Pulmonary infiltrate from congestive heart failure, which has improved after dialysis. 2. End-stage renal disease, on hemodialysis. 3. Right hip surgery with replacement done. 4. Chronic pain problems. RECOMMENDATIONS: I do not see the need for any antibiotics as well as do not see the need for long-term IV access placement done. Thank you very much, Dr. York, for giving me the opportunity to participate in this patient's care. KIRSTIE SOARES MD DR: PRATIMA/phuc JOB#: [id number] / [id number] HUNTER
== END 2016-05-29 18:00 | DRG 466 ==
LOC: ER 18:09 → 6 SOUTH 20:54 → 4 NORTH 05-18 14:14 → 1 WEST ICU 05-18 15:11 → 4 NORTH 05-20 14:54
PROVIDERS: ADMIT Internal Medicine; ATTEND Internal Medicine
PROC: 0SP908Z Removal of Spacer from Right Hip Joint, Open Approach (ICD-10-PCS; 2016-05-18)
PROC: 30233N1 Transfusion of Nonautologous Red Blood Cells into Peripheral Vein, Percutaneous Approach (ICD-10-PCS; 2016-05-18)
PROC: 06H033Z Insertion of Infusion Device into Inferior Vena Cava, Percutaneous Approach (ICD-10-PCS; 2016-05-18)
PROC: B549ZZA Ultrasonography of Inferior Vena Cava, Guidance (ICD-10-PCS; 2016-05-18)
PROC: 5A12012 Performance of Cardiac Output, Single, Manual (ICD-10-PCS; 2016-05-18)
PROC: 5A1945Z Respiratory Ventilation, 24-96 Consecutive Hours (ICD-10-PCS; 2016-05-18)
PROC: 0BH17EZ Insertion of Endotracheal Airway into Trachea, Via Natural or Artificial Opening (ICD-10-PCS; 2016-05-18)
PROC: 0SR90J9 Replacement of Right Hip Joint with Synthetic Substitute, Cemented, Open Approach (ICD-10-PCS; principal; 2016-05-18 07:30)
PROC: 5A1D60Z (ICD-10-PCS; 2016-05-24)
DX: T84.51XA Infection and inflammatory reaction due to internal right hip prosthesis, initial encounter (principal); N18.6 End stage renal disease; J96.01 Acute respiratory failure with hypoxia; F11.20 Opioid dependence, uncomplicated; I12.0 Hypertensive chronic kidney disease with stage 5 chronic kidney disease or end stage renal disease; J98.11 Atelectasis; R00.0 Tachycardia, unspecified; Y83.9 Surgical procedure, unspecified as the cause of abnormal reaction of the patient, or of later complication, without mention of misadventure at the time of the procedure; D63.1 Anemia in chronic kidney disease; E87.5 Hyperkalemia; F41.9 Anxiety disorder, unspecified; G47.00 Insomnia, unspecified; G89.4 Chronic pain syndrome; K31.84 Gastroparesis; M21.70 Unequal limb length (acquired), unspecified site; R56.9 Unspecified convulsions; Z79.2 Long term (current) use of antibiotics; Z79.899 Other long term (current) drug therapy; Z82.49 Family history of ischemic heart disease and other diseases of the circulatory system; Z83.3 Family history of diabetes mellitus; Z99.2 Dependence on renal dialysis; Z87.440 Personal history of urinary (tract) infections; Z88.2 Allergy status to sulfonamides; Z88.8 Allergy status to other drugs, medicaments and biological substances
CPT/HCPCS: 36415; 36556; 36600; 36905; 36907; 71010; 73501; 74000; 76000; 76937; 80048; 80051; 80053; 82803; 82805; 82947; 83690; 83735; 84100; 84132; 84145; 84703; 85007; 85014; 85018; 85027; 85610; 85651; 85730; 86850; 86870; 86880; 86900; 86901; 86902; 86922; 87641; 88304; 88311; 88331; 93005; 94003; 94250; 94640; 94760; 96374; 96375; 96376; C1713; C1725; C1757; C1758; C1769; C1887; C1892; C1894; J0131; J0171; J0360; J0690; J0696; J1100; J1170; J1200; J1885; J2060; J2250; J2270; J2370; J2405; J2543; J2704; J2765; J2795; J2997; J3010; J3490; J7030; J7040; J7042; J7620; P9016; Q0163; 97110; 97530; 99285-25